=== PATIENT | female | born 1960 | race African-American/Black ===

== ENCOUNTER 2020-02-06 08:14 | Outpatient (CLI) | payer OTHER, SELFPAY ==
--- NOTE | ~2020-02-06 | XR_ITS ---
EXAMINATION: XR barium swallow DATE: 02/06/2020 08:57 INDICATION: Dysphagia, unspecified. Hoarseness. TECHNIQUE: The patient drank thick barium, gas-producing crystals, and thin barium. Fluoroscopy of th e hypopharynx and esophagus was performed. Fluoroscopy exposure time was 1.0 minutes. The total numbe r of images was 743. The dose-area product was 1.62 Gy-cm^2. COMPARISON: None. FINDINGS: There is no mass or stricture of the esophagus. Esophageal motility is normal. There is no hiatal hernia. There was no gastroesophageal reflux with provocative maneuvers. IMPRESSION: 1. Normal esophagram. Reviewed, dictated and finalized at location A. IMPRESSION: 1. Normal esophagram.
== END 2020-02-06 08:15 | disposition home or self-care (01) ==
LOC: ANHIMG 08:19
PROVIDERS: PCP Family Medicine; Visit Provider Otolaryngology
DX: R13.10 Dysphagia, unspecified (principal)
CPT/HCPCS: 74220

== ENCOUNTER 2020-03-08 06:28 | Outpatient (CLI) | payer OTHER, SELFPAY ==
[2020-03-08 17:27] LABS: SARS-CoV-2 RNA PCR Negative
== END 2020-03-08 06:29 | disposition home or self-care (01) ==
LOC: ANHCOVIDDT 06:28
PROVIDERS: PCP Family Medicine; Visit Provider Otolaryngology
DX: Z01.812 Encounter for preprocedural laboratory examination (principal); Z11.59 Encounter for screening for other viral diseases
CPT/HCPCS: 87635; C9803; U0003

== ENCOUNTER 2020-03-11 02:41 | Day surgery (SDC) | payer OTHER, SELFPAY ==
[2020-02-28 10:04] VITALS: BMI 30.8
[2020-03-11] VITALS (7 sets, daily range): BP systolic 106–156; BP diastolic 59–99; PULSE 69–93; RESP 17–20; TEMP 36.2–36.6; O2SAT 100
--- NOTE | 2020-03-11 06:13 | P.HP_ITS ---
History of Present Illness History of Present Illness Consent: Risks, benefits, and alternatives have been discussed and questions answered. Patient agrees to proceed with procedure. Chief complaint: Chronic Hoarseness Narrative: Saray Whitten is a 59 year old female with chronic hoarseness she has had surgery before and she it may be a weakened vocal cord she is admitted for microlaryngoscopy possible biopsy and examination of the vocal cords Review of Systems Review of Systems: All systems reviewed & are unremarkable except as noted in HPI and below [facility] Social History Social History Years smoked: 3 Smoking status: Former smoker Tobacco type: cigarettes Second hand tobacco smoke exposure: No Smoking end date: 09/05/69 Alcohol intake: current Drinks per week: 0 Substance use: never Substance use type: does not use Additional occupation/education comments: Disability Gender identity (if verbalized by the patient): Female Meds Home Medications and Allergies Home Medications Medication Instructions Recorded Confirmed Type zolpidem 10 mg PO HS 02/28/20 02/28/20 History Allergies Allergy/AdvReac Type Severity Reaction Status Date / Time No Known Allergies Allergy Verified 02/28/20 10:04 Assessment and Plan Additional Plan Plan is to do a microlaryngoscopy examine the vocal cords possible biopsy possible distracting on whether the cords mobile or not
--- NOTE | 2020-03-11 06:14 | WPDHPUPDATE1 ---
History and Physical Update Update Date/Time: 03/11/20 06:14 History and Physical has been reviewed, including an updated exam of the patient. There are NO changes in the patient's condition. Risks, benefits, and alternatives have been discussed and questions answered. Patient agrees to proceed with procedure.
[2020-03-11] MEDS: LACTATED RINGERS 1,000 ML 30 ML IV CONT ×2 (06:45→08:37)
--- NOTE | 2020-03-11 07:04 | P.PNAN_ITS ---
Anes - Initial Pre Proc Eval Procedure: Operation Date: 03/11/20 08:15 Proposed Procedures p Microlaryngoscopy With Biopsy - Titus Wetzel MD Date/Time: 03/11/20 07:04 Surgeon: Titus Wetzel MD Pre Op Diagnosis: Chronic Hoarseness Patient Data Age: 59 Gender: F Height: 5 ft 6 in Weight: 84 kg Last Vital Signs Temp 97.2 F L 03/11/20 06:31 Pulse 93 03/11/20 06:31 Resp 18 03/11/20 06:31 BP 149/59 H 03/11/20 06:31 Pulse Ox 100 03/11/20 06:31 Allergies Allergy/AdvReac Type Severity Reaction Status Date / Time No Known Allergies Allergy Verified 02/28/20 10:04 Home Medications Medication Instructions Recorded Confirmed Type zolpidem 10 mg PO HS 02/28/20 02/28/20 History Patient hx anesthesia problems: none Family hx anesthesia problems: none [facility] Social History Social History Years smoked: 3 Smoking status: Former smoker Tobacco type: cigarettes Second hand tobacco smoke exposure: No Smoking end date: 09/05/69 Alcohol intake: current Drinks per week: 0 Substance use: never Substance use type: does not use Additional occupation/education comments: Disability Gender identity (if verbalized by the patient): Female Anes - Eval Final PreProcedure Day of Procedure 03/11/20 07:04 Patient weight: normal Heart: regular rate and rhythm Lungs: clear to auscultation Airway: Mallampati scale class II Neurological: alert and oriented Last oral intake: >/= 8 hours ASA classification: II Emergent: no Anesthetic plan: proceed Anesthesia type and monitoring: general ETT and standard monitoring Informed Consent: The patient's anesthetic plan and its attendant risks and benefits were discussed with the patient/family/POA. Questions were solicited and answers provided to the satisfaction of the patient/family/POA.
--- NOTE | 2020-03-11 08:29 | PM.PROC ---
Procedure Note - Detailed Date of procedure: 03/11/20 Pre-op diagnosis: Chronic Hoarseness Patient was prepped and draped usual fashion general anesthesia initially the glide scope was introduced cords were mobile though was a large posterior based vocal polyp the patient was then intubated with micro technique a large polyp was removed off of interarytenoid area and sent for pathologic examination procedure was terminated patient awakened returned to recovery in good condition Post-op diagnosis: same Surgeon: Titus Wetzel MD
--- NOTE | 2020-03-11 08:30 | P.OP_ITS ---
Procedure Note - Detailed Date of procedure: 03/11/20 Pre-op diagnosis: Chronic Hoarseness Post-op diagnosis: same Procedure performed: Microlaryngoscopy and biopsy Description of procedure: Patient was prepped and draped for vaginal general a nesthesia the lip glide scope was in his initially a large posterior based vocal polyp was identified as the patient was then intubated and with a large micro up biter the polyp was removed sent for pathologic examination patient awakened returned to recovery in good condition Anesthesia: GLMA Surgeon: Titus Wetzel MD Estimated blood loss (mL): 0 Drains: No Packing: No Pathology: yes Complications: No immediate complications Condition: stable Disposition: PACU
== END 2020-03-11 10:25 | disposition home or self-care (01) ==
PROVIDERS: PCP Family Medicine; Visit Provider Otolaryngology
PROC: 0CJS8ZZ Inspection of Larynx, Via Natural or Artificial Opening Endoscopic (ICD-10-PCS; CPT 31575; principal; 2020-03-11 08:15)
DX: J38.1 Polyp of vocal cord and larynx (principal); Z87.891 Personal history of nicotine dependence
CPT/HCPCS: 31536; 87635; 88305; A9270; C9803; J2250; J2704; J3010; J7120; U0003

== ENCOUNTER 2021-08-10 17:34 | Outpatient (CLI) | payer OTHER, SELFPAY ==
--- NOTE | ~2021-08-10 | XR_ITS ---
EXAMINATION: XR lumbar spine 2-3V EXAM DATE: 08/10/2021 17:54 INDICATION: M48.061 - Spinal stenosis, lumbar region without neurogen... TECHNIQUE: Lumber spine frontal, lateral, lateral L5-S1 projections for interpretation. There is no prior study for comparison. FINDINGS: Posterior and interbody fusion L4-S1. The hardware is intact. Mild disc disease at the oth er lumbar levels. Overall mild to moderate lumbar facet arthropathy. The vertebral bodies are aligned in the AP dimension. Paraspinal soft tissue is unremarkable. IMPRESSION: 1. Intact L4-S1 fusion. 2. Mild to moderate facet arthropathy, mild disc disease. Reviewed, dictated and finalized at location A. 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
== END 2021-08-10 17:35 | disposition home or self-care (01) ==
LOC: ANHIMG 17:39
PROVIDERS: PCP Family Medicine; Visit Provider Family Medicine
DX: M48.061 Spinal stenosis, lumbar region without neurogenic claudication (principal); Z98.1 Arthrodesis status; M51.36 Other intervertebral disc degeneration, lumbar region
CPT/HCPCS: 72100

== ENCOUNTER → 2021-09-07 01:23 | Outpatient (CLI) | payer OTHER, SELFPAY ==
[2021-09-07 21:22] LABS: SARS-CoV-2 RNA PCR Negative
== END ==
PROVIDERS: PCP Family Medicine; Visit Provider Nurse Practitioner Gerontology
DX: R68.89 Other general symptoms and signs (principal); Z20.822 Contact with and (suspected) exposure to COVID-19
CPT/HCPCS: C9803; U0003; U0005

== ENCOUNTER 2022-04-29 11:00 | Outpatient (CLI) | payer OTHER, SELFPAY ==
[2022-04-29 12:15] LABS: Cholesterol 230 mg/dL (0-200); HDL Direct 69 mg/dL; Triglycerides 79 mg/dL (<150)
[2022-04-29 12:26] LABS: LDL Cholesterol Direct 109 mg/dL
== END 2022-04-29 11:01 | disposition home or self-care (01) ==
PROVIDERS: PCP Family Medicine; Visit Provider Physician Assistant
DX: E78.00 Pure hypercholesterolemia, unspecified (principal)
CPT/HCPCS: 36415; 80061

== ENCOUNTER 2022-07-26 23:32 | Emergency (ER) | payer OTHER, SELFPAY ==
--- NOTE | ~2022-07-26 | XR_ITS ---
EXAMINATION: XR shoulder LT min 2V DATE: 07/27/2022 00:47 INDICATION: Left shoulder pain. TECHNIQUE: 4 views of left shoulder were obtained. COMPARISON: None. FINDINGS: Bone alignment is normal. No fracture. There is mild osteoarthritis of glenohumeral joint a nd moderate osteoarthritis of acromioclavicular joint. There is mild calcific tendinitis of the rotat or cuff. IMPRESSION: 1. Polyarticular osteoarthritis. 2. Mild calcific tendinitis of the rotator cuff. Reviewed, dictated and finalized at location A. T BLANKER
[2022-07-26 23:36] VITALS: BP 175/95; PULSE 113; RESP 18; TEMP 36.9; O2SAT 100
--- NOTE | 2022-07-26 23:49 | ED.EXTPRO ---
HPI - Extremity Problem General Chief complaint: Extremity Problem,Nontraumatic Stated complaint: Left shoulder pain, denies injury Time Seen by Provider: 07/26/22 23:48 History of Present Illness HPI Narrative: 32-year-old female presents to the emergency room for evaluation of left shoulder pain. States pain has been present for a week and has progressively gotten worse. 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 Patient has taken Tylenol and ibuprofen with limited relief of pain. Denies any known injury or trauma. Related Data Home Medications Medication Instructions Recorded Confirmed celecoxib 200 mg capsule 200 mg PO DAILY 04/29/22 04/29/22 Allergies Allergy/AdvReac Type Severity Reaction Status Date / Time No Known Allergies Allergy Verified 04/29/22 10:01 Review of Systems Review of Systems: CONSTITUTIONAL: Denies fever, chills, or sweats. EYES: Denies visual changes, redness, or discharge. ENT: Denies rhinorrhea, congestion, sore throat, or otalgia. CARDIOVASCULAR: Denies chest pain, palpitations, or edema. RESPIRATORY: Denies cough or dyspnea. GASTROINTESTINAL: Denies abdominal pain, nausea, vomiting, or diarrhea. GENITOURINARY: Denies dysuria or hematuria. SKIN: Denies rash or itching. MUSCULOSKELETAL: Reports left shoulder pain NEUROLOGIC: Denies headache, numbness, dizziness, or weakness. PSYCHIATRIC: Denies anxiety or depression. PMFSH Past Medical History Medical History (Updated 07/27/22 @ 00:00 by [facility]) Chronic pain syndrome Primary fibromyalgia Spinal stenosis at L4-L5 level Surgical History Surgical History S/P lumbar fusion Social History Social History Social History: Years smoked: 3 Smoking status: Former smoker Tobacco type: cigarettes Second hand tobacco smoke exposure: No Smoking end date: 09/05/69 Alcohol intake: never Drinks per week: 0 Substance use: never Substance use type: does not use Gender identity (if verbalized by the patient): Female Sexual Orientation (if Verbalized by the Patient): Straight or Heterosexual Exam Narrative: GENERAL: Well-appearing, well-nourished, no physical limitations, and in no acute distress. HEAD: Normocephalic, atraumatic. EYES: Conjunctivae normal, PERRLA and EOMI. CHEST: Clear to auscultation. No respiratory distress. No wheezes rales or rhonchi. HEART: Regular rate and rhythm. No murmur heard. Normal peripheral pulses. EXTREMITIES: Left Shoulder: Tenderness in the AC joint, positive Fish Rip test limited range of motion, neurovascular is intact, no bony abnormality, no soft tissue swelling or ecchymosis noted SKIN: Warm, dry, no rash. No noted wounds NEURO: No focal deficits. Alert and oriented x3. MAEW. CN's II-XI intact bilaterally, normal gait PSYCH: Cooperative. Normal mood and affect. Course Vital Signs Vital signs: Vital Signs Temperature 36.9 C 07/26/22 23:36 Pulse Rate 113 H 07/26/22 23:36 Respiratory Rate 18 07/26/22 23:36 Blood Pressure 175/95 H 07/26/22 23:36 Pulse Oximetry 100 07/26/22 23:36 Oxygen Delivery Room Air 07/26/22 23:36 Temperature 36.9 C 07/26/22 23:36 Pulse Rate 113 H 07/26/22 23:36 Respiratory Rate 18 07/26/22 23:36 Blood Pressure 175/95 H 07/26/22 23:36 Pulse Oximetry 100 07/26/22 23:36 Oxygen Delivery Room Air 07/26/22 23:36 MDM - Extremity (Nontraumatic) Imaging Data Radiologist's impression: left shoulder: NAF Discharge Plan Discharge Clinical Impression: Impingement syndrome of left shoulder region Patient Disposition: Home, Self-Care Condition: Stable Instructions: Antibiotic Form, Shoulder Impingement Syndrome (ED) Prescriptions: New methocarbamol 500 mg tablet 500 mg PO TID Qt
[2022-07-27] MEDS: methocarbamoL 750 MG TABLET PO (00:57)
[2022-07-27 01:00] VITALS: BP 162/96; PULSE 80; RESP 16; TEMP 37; O2SAT 100
== END 2022-07-27 01:01 | disposition home or self-care (01) ==
LOC: ANHED 07-27 00:07
PROVIDERS: Emergency Provider Nurse Practitioner Family; PCP Family Medicine
DX: M75.42 Impingement syndrome of left shoulder (principal); M79.7 Fibromyalgia; G89.4 Chronic pain syndrome; Z98.1 Arthrodesis status; Z87.891 Personal history of nicotine dependence
CPT/HCPCS: 73030; 99283; A9270

== ENCOUNTER 2022-08-03 13:31 | Outpatient (CLI) | payer OTHER, SELFPAY ==
[2022-08-03 14:15] LABS: Cholesterol 230 mg/dL (0-200); HDL Direct 56 mg/dL; Triglycerides 122 mg/dL (<150)
[2022-08-03 14:25] LABS: LDL Cholesterol Direct 105 mg/dL
== END 2022-08-03 13:32 | disposition home or self-care (01) ==
LOC: ANHLAB 13:32
PROVIDERS: PCP Family Medicine; Visit Provider Physician Assistant
DX: E78.00 Pure hypercholesterolemia, unspecified (principal)
CPT/HCPCS: 36415; 80061

== ENCOUNTER 2022-11-11 14:36 | Outpatient (CLI) | payer OTHER, SELFPAY ==
[2022-11-11 15:06] LABS: Basophils Percent Auto 0.5 % (0.2-1.2); Eosinophils Absolute Auto 0.2 K/mm3 (0-0.3); Eosinophils Percent Auto 3.8 % (0-4.4); Hematocrit 40.4 % (37.0-47.0); Hemoglobin 12.8 g/dL (12.0-15.0); Immature Granulocyte Absolute 0.01 K/mm3 (0.00-0.031); Immature Granulocyte Percent A 0.2 % (0-0.5); Lymphocytes Absolute Auto 2.25 K/mm3 (0.9-3.2); Lymphocytes Percent Auto 41.1 % (18.3-44.2); Mean Corpuscular HGB Conc 31.7 g/dl (32-36); Mean Corpuscular Hemoglobin 27.6 pg (26-34); Mean Corpuscular Volume 87.1 fl (80-100); Monocytes Absolute Auto 0.4 K/mm3 (0.1-0.6); Neutrophils Absolute Auto 2.5 K/mm3 (1.3-6.7); Neutrophils Percent Auto 46.4 % (45.5-73.1); Platelet Count Result 178 k/mm3 (150-375); Red Blood Count 4.64 M/mm3 (4.2-5.4); Red Cell Distribution Width 14.1 % (11.5-14.5); White Blood Count 5.5 K/mm3 (4.5-10.0)
[2022-11-11 15:16] LABS: Alanine Aminotransferase 25 U/L (6-35); Albumin Level 4.4 g/dL (3.5-5.1); Alkaline Phosphatase 90 U/L (38-126); Anion Gap 6 mmol/L (8-16); Aspartate Amino Transferase 24 U/L (14-36); Bilirubin,Total 0.7 mg/dL (0.2-1.3); Blood Urea Nitrogen 12 mg/dL (7-17); Carbon Dioxide 27 mmol/L (22-30); Chloride 108 mmol/L (98-107); Cholesterol 234 mg/dL (0-200); Estimated Glomerular Filt Rate > 60; Glucose 88 mg/dL (65-110); HDL Direct 60 mg/dL; Potassium 3.9 mmol/L (3.4-5.0); Sodium 141 mmol/L (137-145); Triglycerides 90 mg/dL (<150)
[2022-11-11 15:27] LABS: LDL Cholesterol Direct 113 mg/dL
[2022-11-11 15:44] LABS: Thyroid Stimulating Hormone 0.423 uIU/mL (0.465-4.680)
[2022-11-16 08:25] LABS: Vitamin D 1,25 (OH)2 Total 55 pg/mL (18-72); Vitamin D2 1,25 (OH)2 <8 pg/mL; Vitamin D3 1,25 (OH)2 55 pg/mL
== END 2022-11-11 14:37 | disposition home or self-care (01) ==
LOC: ANHLAB 14:37
PROVIDERS: PCP Family Medicine; Visit Provider Family Medicine
DX: E03.9 Hypothyroidism, unspecified (principal); I10 Essential (primary) hypertension; E78.2 Mixed hyperlipidemia; E55.9 Vitamin D deficiency, unspecified
CPT/HCPCS: 36415; 80053; 80061; 82652; 84443; 85025

== ENCOUNTER 2022-12-02 16:33 | Outpatient (CLI) | payer OTHER, SELFPAY ==
--- NOTE | ~2022-12-02 | XR_ITS ---
XR chest 2V DATE: 12/02/2022 16:49 INDICATION: Cough. Recent bronchitis. TECHNIQUE: PA and lateral views COMPARISON: None FINDINGS: Normal heart size. No hilar or mediastinal enlargement. No pulmonary infiltrate or consolid ation, pleural effusion or pulmonary vascular congestion or pneumothorax. Mild thoracolumbar dextroscoliosis. IMPRESSION: No active cardiopulmonary disease Reviewed, dictated and finalized at location L.
== END 2022-12-02 16:34 | disposition home or self-care (01) ==
LOC: ANHIMG 16:36
PROVIDERS: PCP Family Medicine; Visit Provider Nurse Practitioner Gerontology
DX: R05.9 Cough, unspecified (principal)
CPT/HCPCS: 71046

== ENCOUNTER 2023-02-23 10:09 | Outpatient (CLI) | payer OTHER, SELFPAY ==
[2023-02-23 11:01] LABS: Alanine Aminotransferase 27 U/L (6-35); Albumin Level 4.3 g/dL (3.5-5.1); Alkaline Phosphatase 90 U/L (38-126); Anion Gap 6 mmol/L (8-16); Aspartate Amino Transferase 26 U/L (14-36); Bilirubin,Total 0.4 mg/dL (0.2-1.3); Blood Urea Nitrogen 12 mg/dL (7-17); Calcium 9.5 mg/dL (8.4-10.2); Carbon Dioxide 30 mmol/L (22-30); Chloride 108 mmol/L (98-107); Cholesterol 203 mg/dL (0-200); Estimated Glomerular Filt Rate > 60; Glucose 102 mg/dL (65-110); HDL Direct 53 mg/dL; Potassium 4.8 mmol/L (3.4-5.0); Sodium 144 mmol/L (137-145); Triglycerides 66 mg/dL (<150)
[2023-02-23 11:11] LABS: LDL Cholesterol Direct 108 mg/dL
[2023-02-23 11:26] LABS: Free T4 Free Thyroxine 1.15 ng/mL (0.78-2.19)
[2023-02-23 11:32] LABS: Thyroid Stimulating Hormone 0.601 uIU/mL (0.465-4.680)
[2023-02-26 05:25] LABS: Thyroid Peroxidase Antibodies 2 IU/mL (<9)
[2023-02-27 05:21] LABS: Triiodothyronine T3 Free 2.9 pg/mL (2.3-4.2)
== END 2023-02-23 10:10 | disposition home or self-care (01) ==
LOC: ANHLAB 10:10
PROVIDERS: PCP Family Medicine; Visit Provider Physician Assistant
DX: E78.00 Pure hypercholesterolemia, unspecified (principal); E07.9 Disorder of thyroid, unspecified
CPT/HCPCS: 36415; 80053; 80061; 84439; 84443; 84481; 86376

== ENCOUNTER 2023-12-06 10:14 | Outpatient (CLI) | payer BC, SELFPAY ==
[2023-12-06 11:22] LABS: Basophils Percent Auto 0.7 % (0.2-1.2); Eosinophils Absolute Auto 0.2 K/mm3 (0-0.3); Eosinophils Percent Auto 4.1 % (0-4.4); Hematocrit 42.2 % (37.0-47.0); Hemoglobin 12.9 g/dL (12.0-15.0); Immature Granulocyte Absolute 0.01 K/mm3 (0.00-0.031); Immature Granulocyte Percent A 0.2 % (0-0.5); Lymphocytes Percent Auto 40.9 % (18.3-44.2); Mean Corpuscular HGB Conc 30.6 g/dl (32-36); Mean Corpuscular Volume 88.5 fl (80-100); Mean Platelet Volume 10.2 fl (7.4-10.4); Monocytes Absolute Auto 0.4 K/mm3 (0.1-0.6); Monocytes Percent Auto 9.1 % (2.6-8.5); Neutrophils Absolute Auto 1.9 K/mm3 (1.3-6.7); Platelet Count Result 189 k/mm3 (150-375); Red Blood Count 4.77 M/mm3 (4.2-5.4); Red Cell Distribution Width 14.2 % (11.5-14.5); White Blood Count 4.2 K/mm3 (4.5-10.0)
[2023-12-06 11:33] LABS: Anion Gap 5 mmol/L (4-12); Blood Urea Nitrogen 16 mg/dL (7-17); Carbon Dioxide 28 mmol/L (22-30); Chloride 107 mmol/L (98-107); Potassium 3.9 mmol/L (3.4-5.0); Sodium 140 mmol/L (137-145)
[2023-12-06 11:34] LABS: Alanine Aminotransferase 21 U/L (6-35); Albumin Level 4.3 g/dL (3.5-5.1); Alkaline Phosphatase 78 U/L (38-126); Aspartate Amino Transferase 22 U/L (14-36); Bilirubin,Total 0.6 mg/dL (0.2-1.3); Calcium 9.5 mg/dL (8.4-10.2); Cholesterol 221 mg/dL (0-200); Estimated Glomerular Filt Rate > 60; Glucose 90 mg/dL (65-110); HDL Direct 56 mg/dL; Triglycerides 67 mg/dL (<150)
[2023-12-06 11:44] LABS: LDL Cholesterol Direct 118 mg/dL
[2023-12-06 12:03] LABS: Thyroid Stimulating Hormone 0.853 uIU/mL (0.465-4.680)
[2023-12-06 12:17] LABS: Free T4 Free Thyroxine 1.05 ng/mL (0.78-2.19)
== END 2023-12-06 10:15 | disposition home or self-care (01) ==
PROVIDERS: PCP Family Medicine; Visit Provider Physician Assistant
DX: E78.00 Pure hypercholesterolemia, unspecified (principal); R94.6 Abnormal results of thyroid function studies; M45.9 Ankylosing spondylitis of unspecified sites in spine; E07.9 Disorder of thyroid, unspecified
CPT/HCPCS: 36415; 80053; 80061; 84439; 84443; 85025

== ENCOUNTER 2024-01-17 02:45 | Day surgery (SDC) | payer BC, SELFPAY ==
[2024-01-09 13:22] VITALS: BMI 27.2
[2024-01-17 12:13] VITALS: BP 155/91; PULSE 83; RESP 18; TEMP 36.2; O2SAT 100; BMI 32.9
[2024-01-17] MEDS: LACTATED RINGERS 1,000 ML 150 ML IV CONT ×2 (12:16→14:11)
--- NOTE | 2024-01-17 12:54 | WPDANESEPPF ---
Anes - Initial Pre Proc Eval Procedure: Operation Date: 01/17/24 13:00 Proposed Procedures p Screening Colonoscopy - Stephan Almaguer DO Date/Time: 01/17/24 12:54 Surgeon: Stephan Almaguer DO Pre Op Diagnosis: Neoplasm screening Patient Data Age: 63 Gender: F Height: 1.7 m Weight: 95.4 kg Last Vital Signs Temp 97.1 F L 01/17/24 12:13 Pulse 83 01/17/24 12:13 Resp 18 01/17/24 12:13 BP 155/91 H 01/17/24 12:13 Pulse Ox 100 01/17/24 12:13 O2 Del Method Room Air 01/17/24 12:13 Allergies Allergy/AdvReac Type Severity Reaction Status Date / Time No Known Allergies Allergy Verified 01/17/24 12:11 Home Medications Medication Instructions Recorded Confirmed Type amlodipine 5 mg tablet 5 mg PO DAILY #90 tabs 12/06/23 01/17/24 Rx cyclobenzaprine 10 mg tablet 10 mg PO HS 01/09/24 01/17/24 History diclofenac sodium 75 mg 75 mg PO BID 01/09/24 01/17/24 History tablet,delayed release folic acid 1 mg tablet 1 mg PO DAILY 01/09/24 01/17/24 History methotrexate sodium 2.5 mg tablet 12.5 mg PO WEEKLY 01/09/24 01/17/24 History pantoprazole 40 mg tablet,delayed 40 mg PO DAILY 01/09/24 01/17/24 History release Patient hx anesthesia problems: none Family hx anesthesia problems: none Results Review: All pre-operative results and documents have been reviewed as part of the pre-operative evaluation. [facility] Past Medical History Medical History Ankylosing spondylitis Chronic pain syndrome Polyp of vocal cord or larynx Positive OLEG (antinuclear antibody) Primary fibromyalgia Spinal stenosis at L4-L5 level Vocal cord dysfunction Surgical History Surgical History History of vocal cord polypectomy S/P lumbar fusion Social History Social History Social History: Years smoked: 3 Smoking status: Never smoker Tobacco type: cigarettes Second hand tobacco smoke exposure: No Smoking end date: 09/05/69 Alcohol intake: current Substance use: never Substance use type: does not use Lack of Transportation: No Lack of Food: Never True Current Housing: I Have Housing Concerned About Future Housing: No Difficulty Paying Gas/Electric Bills: No Difficulty Paying for Meds: No Currently Unemployed: No Education: Decline to Answer Difficulty w/ Childcare or Family Care: No Living arrangements: with family Occupation/Education: occupation Gender identity (if verbalized by the patient): Female Sexual Orientation (if Verbalized by the Patient): Straight or Heterosexual Spiritual care concerns: No Anes - Eval Final PreProcedure Day of Procedure 01/17/24 12:54 Patient weight: obese Heart: regular rate and rhythm Lungs: clear to auscultation Airway: Mallampati scale class II Neurological: alert and oriented Last oral intake: >/= 8 hours ASA classification: III Emergent: no Anesthetic plan: proceed Anesthesia type and monitoring: general GIVS and standard monitoring Results Review: All pre-operative results and documents have been reviewed as part of the pre-operative evaluation. Informed Consent: The patient's anesthetic plan and its attendant risks and benefits were discussed with the patient/family/POA. Questions were solicited and answers provided to the satisfaction of the patient/family/POA.
--- NOTE | 2024-01-17 13:49 | PM.IMHP ---
H&P: HPI History of Present Illness Date/Time: 01/17/24 13:49 Chief Complaint: screening for colorectal cancer Narrative: this is a 63-year-old woman who presents for colonoscopy. Her last colonoscopy was of about 6 or so years ago. She denies any hematochezia or melena. She denies family history colon cancer Review of Systems Review of Systems: All systems reviewed & are unremarkable except as noted in HPI and below Constitutional: Constitutional: Denies chills, Denies fever(s), Denies headache(s) and Denies weight loss Eyes: Eyes: Denies change in vision ENT: Denies dizziness, Denies headache(s), Denies neck mass and Denies throat swelling Cardiovascular: Cardiovascular: Denies chest pain, Denies lightheadedness and Denies dyspnea Respiratory: Respiratory: Denies cough, Denies dyspnea and Denies wheezing Gastrointestinal: Gastrointestinal: Denies abdominal pain, Denies change in bowel habits, Denies nausea and Denies vomiting Genitourinary: Genitourinary: Denies hematuria and Denies dysuria Musculoskeletal: Musculoskeletal: Reports as per HPI Integumentary/Breasts: Skin/Breast: Reports as per HPI Neurologic: Denies dizziness and Denies headache(s) Allergic/Immunologic: Allergic/Immunologic: Denies throat swelling and Denies wheezing PMF Past Medical History Medical History Ankylosing spondylitis Chronic pain syndrome Polyp of vocal cord or larynx Positive OLEG (antinuclear antibody) Primary fibromyalgia Spinal stenosis at L4-L5 level Vocal cord dysfunction Surgical History Surgical History History of vocal cord polypectomy S/P lumbar fusion Social History Social History Social History: Years smoked: 3 Smoking status: Never smoker Tobacco type: cigarettes Second hand tobacco smoke exposure: No Smoking end date: 09/05/69 Alcohol intake: current Substance use: never Substance use type: does not use Lack of Transportation: No Lack of Food: Never True Current Housing: I Have Housing Concerned About Future Housing: No Difficulty Paying Gas/Electric Bills: No Difficulty Paying for Meds: No Currently Unemployed: No Education: Decline to Answer Difficulty w/ Childcare or Family Care: No Living arrangements: with family Occupation/Education: occupation Gender identity (if verbalized by the patient): Female Sexual Orientation (if Verbalized by the Patient): Straight or Heterosexual Spiritual care concerns: No Meds Home Medications and Allergies Home Medications Medication Instructions Recorded Confirmed Type amlodipine 5 mg tablet 5 mg PO DAILY #90 tabs 12/06/23 01/17/24 Rx cyclobenzaprine 10 mg tablet 10 mg PO HS 01/09/24 01/17/24 History diclofenac sodium 75 mg 75 mg PO BID 01/09/24 01/17/24 History tablet,delayed release folic acid 1 mg tablet 1 mg PO DAILY 01/09/24 01/17/24 History methotrexate sodium 2.5 mg tablet 12.5 mg PO WEEKLY 01/09/24 01/17/24 History pantoprazole 40 mg tablet,delayed 40 mg PO DAILY 01/09/24 01/17/24 History release Allergies Allergy/AdvReac Type Severity Reaction Status Date / Time No Known Allergies Allergy Verified 01/17/24 12:11 Vital Signs Vital Signs - 24 hr 01/17/24 12:13 Temperature 36.2 C L Pulse Rate 83 Respiratory Rate 18 Blood Pressure 155/91 H Pulse Oximetry 100 Oxygen Delivery Room Air Exam Const: General: no acute distress and alert Orientation/consciousness: patient oriented x3 HENMT: Head: normocephalic and atraumatic Ears: hearing grossly normal bilaterally Face/Nose/Sinus: Normal nares present Mouth: Yes Normal oral and palatal mucosa present Eyes: Periorbital: periorbital findings normal Sclera: sclerae normal EOM: EOMs intact bilaterally Neck: Neck: normal visual inspection, no lymphadenopathy a
[2024-01-17 14:17] VITALS: BP 115/73; PULSE 69; RESP 23; O2SAT 100
[2024-01-17 14:27] VITALS: BP 141/77; PULSE 72; RESP 23; O2SAT 100
== END 2024-01-17 14:51 | disposition home or self-care (01) ==
PROVIDERS: PCP Family Medicine; Visit Provider Surgery
PROC: 0DJD8ZZ Inspection of Lower Intestinal Tract, Via Natural or Artificial Opening Endoscopic (ICD-10-PCS; CPT 45378; principal; 2024-01-17 13:00)
DX: Z12.11 Encounter for screening for malignant neoplasm of colon (principal); Z86.010 Personal history of colon polyps; Z79.631 Long term (current) use of antimetabolite agent; M79.7 Fibromyalgia; Z98.1 Arthrodesis status; R76.0 Raised antibody titer; Z87.891 Personal history of nicotine dependence; E66.9 Obesity, unspecified; Z68.32 Body mass index [BMI] 32.0-32.9, adult
CPT/HCPCS: 45378; J2704; J7120

== ENCOUNTER 2024-02-21 17:15 | Outpatient (CLI) | payer BC, SELFPAY ==
[2024-02-21 17:51] LABS: Basophils Percent Auto 0.4 % (0.2-1.2); Eosinophils Absolute Auto 0.2 K/mm3 (0-0.3); Eosinophils Percent Auto 3.3 % (0-4.4); Hematocrit 39.4 % (37.0-47.0); Hemoglobin 12.6 g/dL (12.0-15.0); Immature Granulocyte Absolute 0.02 K/mm3 (0.00-0.031); Immature Granulocyte Percent A 0.4 % (0-0.5); Lymphocytes Absolute Auto 1.98 K/mm3 (0.9-3.2); Mean Corpuscular Hemoglobin 27.6 pg (26-34); Mean Corpuscular Volume 86.4 fl (80-100); Mean Platelet Volume 10.2 fl (7.4-10.4); Monocytes Absolute Auto 0.4 K/mm3 (0.1-0.6); Monocytes Percent Auto 7.3 % (2.6-8.5); Neutrophils Absolute Auto 2.5 K/mm3 (1.3-6.7); Neutrophils Percent Auto 49.6 % (45.5-73.1); Platelet Count Result 199 k/mm3 (150-375); Red Blood Count 4.56 M/mm3 (4.2-5.4); Red Cell Distribution Width 14.4 % (11.5-14.5); White Blood Count 5.1 K/mm3 (4.5-10.0)
== END 2024-02-21 17:16 | disposition home or self-care (01) ==
LOC: ANHLAB 17:16
PROVIDERS: PCP Family Medicine; Visit Provider Physician Assistant
DX: D72.819 Decreased white blood cell count, unspecified (principal)
CPT/HCPCS: 36415; 85025

== ENCOUNTER 2024-07-19 11:43 | Outpatient (CLI) | payer BC, SELFPAY ==
[2024-07-19 12:51] LABS: Alanine Aminotransferase 25 U/L (6-35); Albumin Level 4.5 g/dL (3.5-5.1); Alkaline Phosphatase 93 U/L (38-126); Anion Gap 6 mmol/L (4-12); Aspartate Amino Transferase 29 U/L (14-36); Bilirubin,Total 0.6 mg/dL (0.2-1.3); Blood Urea Nitrogen 14 mg/dL (7-17); Calcium 9.4 mg/dL (8.4-10.2); Carbon Dioxide 28 mmol/L (22-30); Chloride 106 mmol/L (98-107); Cholesterol 215 mg/dL (0-200); Estimated Glomerular Filt Rate > 60; Glucose 98 mg/dL (65-110); HDL Direct 68 mg/dL; Potassium 3.9 mmol/L (3.4-5.0); Sodium 140 mmol/L (137-145); Triglycerides 69 mg/dL (<150)
[2024-07-19 13:02] LABS: LDL Cholesterol Direct 94 mg/dL
[2024-07-19 13:19] LABS: Thyroid Stimulating Hormone 0.649 uIU/mL (0.465-4.680)
== END 2024-07-19 11:44 | disposition home or self-care (01) ==
LOC: ANHLAB 11:47
PROVIDERS: PCP Family Medicine; Visit Provider Physician Assistant
DX: E07.9 Disorder of thyroid, unspecified (principal); I10 Essential (primary) hypertension; R94.6 Abnormal results of thyroid function studies; E78.00 Pure hypercholesterolemia, unspecified
CPT/HCPCS: 36415; 80053; 80061; 84439; 84443

== ENCOUNTER 2024-08-20 08:22 | Outpatient (CLI) | payer BC, SELFPAY ==
--- NOTE | 2024-08-20 08:28 | EST_ITS ---
Patient Info Name: Saray Whitten Age: 64 years : 1960 Gender: Female Ht: 65 in Wt: 198 lbs BSA: 2.06 m2 HR: 92 bpm BP: 143 / 81 mmHg Exam Date: 08/20/2024 8:40 AM Exam Location: Echo Lab Patient Status: Outpatient Admit Date: 08/20/2024 Staff Ordering Physician: Luly Walsh PA-C Attending Provider: Luly Walsh PA-C Exercise Technologist: Yanna Hastings [facility] Exercise Physician: Emre Gay DO Exam Type: CA stress test treadmill Study Info A treadmill exercise stress test was performed. Summary 1. 1. Negative Jony exercise stress test for ischemic ST changes by ECG criteria. 2. 2. Reduced functional capacity, achieving 7 METs of workload. 3. 3. Appropriate HR response to exercise. 4. 4. Appropriate HR recovery at 1 minute post exercise. 5. 5. No imaging with stress testing. 6. 6. Patient informed of the above results. Protocol: Jony Stress ECG Details Stage: REST Duration (min): 1 min : 15 sec Speed (mph): 0.0 Grade (%): 0 HR (bpm): 92 SBP (mmHg): 143 DBP (mmHg): 81 METS: --- Stage: REST Duration (min): 5 min : 2 sec Speed (mph): 0.0 Grade (%): 0 HR (bpm): 93 SBP (mmHg): 143 DBP (mmHg): 81 METS: --- Stage: STAGE 1 Duration (min): 1 min : 0 sec Speed (mph): 1.7 Grade (%): 10 HR (bpm): 119 SBP (mmHg): 143 DBP (mmHg): 81 METS: --- Stage: STAGE 1 Duration (min): 2 min : 0 sec Speed (mph): 1.7 Grade (%): 10 HR (bpm): 124 SBP (mmHg): 143 DBP (mmHg): 81 METS: --- Stage: STAGE 1 Duration (min): 3 min : 0 sec Speed (mph): 1.7 Grade (%): 10 HR (bpm): 130 SBP (mmHg): 189 DBP (mmHg): 68 METS: --- Stage: STAGE 2 Duration (min): 1 min : 0 sec Speed (mph): 2.5 Grade (%): 12 HR (bpm): 139 SBP (mmHg): 189 DBP (mmHg): 68 METS: --- Stage: STAGE 2 Duration (min): 2 min : 0 sec Speed (mph): 2.5 Grade (%): 12 HR (bpm): 146 SBP (mmHg): 189 DBP (mmHg): 99 METS: --- Stage: STAGE 2 Duration (min): 2 min : 3 sec Speed (mph): 2.5 Grade (%): 12 HR (bpm): 146 SBP (mmHg): 189 DBP (mmHg): 99 METS: --- Stage: RECOVERY Duration (min): 0 min : 57 sec Speed (mph): 0.0 Grade (%): 0 HR (bpm): 125 SBP (mmHg): 189 DBP (mmHg): 99 METS: --- Stage: RECOVERY Duration (min): 1 min : 56 sec Speed (mph): 0.0 Grade (%): 0 HR (bpm): 101 SBP (mmHg): 189 DBP (mmHg): 99 METS: --- Stage: RECOVERY Duration (min): 2 min : 57 sec Speed (mph): 0.0 Grade (%): 0 HR (bpm): 101 SBP (mmHg): 142 DBP (mmHg): 69 METS: --- Stage: RECOVERY Duration (min): 3 min : 34 sec Speed (mph): 0.0 Grade (%): 0 HR (bpm): 98 SBP (mmHg): 142 DBP (mmHg): 69 METS: --- Rest HR: 93 bpm Peak HR: 147 bpm Rest Sys BP: 143 mmHg Peak Sys BP: 189 mmHg Max Pred HR: 155 bpm % Max Pred HR: 95 % Target HR: 132 bpm Max RPP: 27,783 bpm*mmHg Arechiga Score: 0 Termination Reason: Reached target heart rate or workload Cardiac Symptoms: Shortness of breath Max ST Seg Deviation: -1.10 mm Total Time: 5 min : 3 sec Rest Garcia BP: 81 mmHg Peak Garcia BP: 99 mmHg Angina Score: None Total METS: 7.1 Resting ECG Sinus rhythm. Stress ECG Borderline ST-T wave in inferior leads. Arrhythmias None. Report Signatures
--- OUTSIDE RECORDS SUMMARY | 2024-08-26 07:03 | XMS_ITS | Patient Health Summary ---
Author Organization [facility] Address [address] [place] [address] Care Team Providers Care Inside Sales Associate Name Role Phone Esperanza Ho MD Primary Care Provider + Note from [facility],non-owned Affiliates and Associated Physician Practices is amultiple site organization consisting of ambulatory clinics and hospital sitesin [place], [place], [place] and [place]. This disclosure is being madepursuant to the Care Everywhere program and may not contain all information available regarding this patient. Last updated 18.[facility] Allergies No known active allergies Medications * Be aware that medications may not be up to date on this document. Alwaysverify current medications with the patient. * amitriptyline (ELAVIL) 25 MG tablet Take 25 mg by mouth at bedtime * DULoxetine (CYMBALTA) 30 MG capsule Take 30 mg by mouth once daily * senna-docusate (SENOKOT-S) 8.6-50 MG tablet(Started 11/23/2019) Take 1 tablet by mouth 2 times daily * polyethylene glycol 3350 (MIRALAX) powder(Started 12/17/2019) TAKE 17 GRAMS BY MOUTH ONCE DAILY * oxyCODONE-acetaminophen (PERCOCET) 10-325 MG tablet(Started 01/25/2020) Take 1 tablet by mouth every 4 hours as needed for Pain * zolpidem (AMBIEN) 10 MG tablet(Started 02/25/2020) Take 10 mg by mouth at bedtime * gabapentin (NEURONTIN) 300 MG capsule(Started 11/25/2020) Take 1 (one) capsule by mouth 3 times daily 2 refills by 11/25/2021 Active Problems Problem Noted Date Diagnosed Date S/P lumbar spinal fusion 11/16/2019 Red blood cell antibody positive Resolved Problems Problem Noted Date Diagnosed Date Resolved Date Lumbosacral radiculopathy at L5 05/19/2019 01/09/2020 Spondylolisthesis at L4-L5 level 04/13/2019 01/09/2020 Social History Tobacco Use Types Packs/Day Years Used Date Smoking Tobacco: Former Smokeless Tobacco: Never Comments:1/2 pack week Alcohol Use Standard Drinks/Week Comments Not Currently 0 (1 standard drink = 0.6 oz pur e alcohol) Sex and Gender Information Value Date Recorded Sex Assigned at Not on file Gender Identity Not on file Sexual Orientation Not on file Last Filed Vital Signs Vital Sign Reading Time Taken Comments Blood Pressure 144/76 06/03/2020 2:04 PM CDT Pulse 85 06/03/2020 2:04 PM CDT Temperature 36.4 ??C (97.6 ??F) 06/03/2020 2:04 PM CD T Respiratory Rate 18 06/03/2020 2:04 PM CDT Oxygen Saturation 100% 06/03/2020 2:04 PM CDT Inhaled Oxygen Concentration - - Weight 99.3 kg (219 lb) 01/21/2021 3:57 PM CDT Height 167.6 cm (5' 6 ) 01/21/2021 3:57 PM CDT Body Mass Index 35.35 01/21/2021 3:57 PM CDT Medical Devices Implanted Type Area Meter Tester Primary Device Identifier Shelf Expiration Date Model / Serial / Lot Spcr Spnl 12mm Primtr 12d Lrdtc Lg Vert Implanted:Qty: 1 on 11/02/2019 by Sammy Carrero MD at [facility] N/A: Spine Lumbar Medtronic [employer] 02/17/2024 [id number] / / Graft Bone Infs Bvn Clgn Rhbmp-2 Sm 2.8 Implanted:Qty: 1 on 11/02/2019 by Sammy Carrero MD at [facility] N/A: Spine Lumbar Medtronic [employer] [id number] / / Spcr Spnl 12mm Primtr 12d Lrdtc Lg Vert Implanted:Qty: 1 on 11/02/2019 by Sammy Carrero MD at [facility] N/A: Spine Lumbar Medtronic [employer] [id number] / / Graft Bone Canc 4-9.5mm 30cc Algrf Frzdr Implanted:Qty: 1 on 11/02/2019 by Sammy Carrero MD at [facility] N/A: Spine Lumbar [employer]ource [id number] / / Screw Set Ti Spnl Brk Off Cd Hzn Nonster Implanted:Qty: 6 on 11/02/2019 by Sammy Carrero MD at [facility] N/A: Spine Medtronic [employer] [id number] / / Screw 6.5mm 40mm Ma Spne Solera Cd Hzn Implanted:Qty: 4 on 11/02/2019 by Sammy Carrero MD at [facility] N/A: Spine Med[employer] [id number] / / Screw 7.5mm 40mm Ma Spne Solera Cd Hzn Implanted:Qty: 2 on 11/02/2019 by Sammy Carrero MD at [facility] N/A: Spine Medtronic [employer] [id number] / / Roger Spnl 70mm 5.5mm Cd Hzn Crv Cocrmo Implanted:Qty: 2 on 11/02/2019 by Sammy Carrero MD at [facility] N/A: Spine Med[employer] Inc [id number] / / Procedures * XR PELVIS W BILAT HIP 2VW(Performed 10/02/2021) Performed for Ankylosing spondylitis, unspecified site of spine (HCC), OLEG positive * XR LUMBAR SPINE 2 OR 3VW(Performed 11/25/2020) Performed for Low back pain, unspecified back pain laterality, unspecified chronicity, unspecified whether sciatica present * MRI LUMBAR SPINE WO CONTRAST(Performed 05/28/2020) Performed for S/P lumbar spinal fusion * XR LUMBAR SPINE 2 OR 3VW(Performed 04/15/2020) Performed for Back pain, unspecified back location, unspecified back pain laterality, unspecified chronicity * XR LUMBAR SPINE 2 OR 3VW(Performed 01/08/2020) Performed for Low back pain, unspecified back pain laterality, unspecified chronicity, unspecified whether sciatica present * CARDIAC EKG ORDER(Performed 12/22/2019) * BASIC METABOLIC PANEL (CALCIUM TOTAL)(Performed 11/12/2019) * CBC W/O DIFFERENTIAL(Performed 11/12/2019) * CBC W/O DIFFERENTIAL(Performed 11/11/2019) * BASIC METABOLIC PANEL (CALCIUM TOTAL)(Performed 11/11/2019) * BASIC METABOLIC PANEL (CALCIUM TOTAL)(Performed 11/10/2019) * CBC W/O DIFFERENTIAL(Performed 11/10/2019) * BASIC METABOLIC PANEL (CALCIUM TOTAL)(Performed 11/09/2019) * CBC W/O DIFFERENTIAL(Performed 11/09/2019) * BASIC METABOLIC PANEL (CALCIUM TOTAL)(Performed 11/08/2019) * CBC W/O DIFFERENTIAL(Performed 11/08/2019) * XR LUMBAR SPINE 2 OR 3VW(Performed 11/07/2019) Performed for Lumbosacral radiculopathy at L5 * BASIC METABOLIC PANEL (CALCIUM TOTAL)(Performed 11/07/2019) * CBC W/O DIFFERENTIAL(Performed 11/07/2019) * BASIC METABOLIC PANEL (CALCIUM TOTAL)(Performed 11/06/2019) * CBC W/O DIFFERENTIAL(Performed 11/06/2019) * BASIC METABOLIC PANEL (CALCIUM TOTAL)(Performed 11/05/2019) * CBC W/O DIFFERENTIAL(Performed 11/05/2019) * BASIC METABOLIC PANEL (CALCIUM TOTAL)(Performed 11/04/2019) * CBC W/O DIFFERENTIAL(Performed 11/04/2019) * BASIC METABOLIC PANEL (CALCIUM TOTAL)(Performed 11/03/2019) * CBC W/O DIFFERENTIAL(Performed 11/03/2019) * FL OARM SURGERY(Performed 11/02/2019) Performed for Lumbosacral radiculopathy at L5 * FL LEVI SURGERY(Performed 11/02/2019) Performed for Lumbosacral radiculopathy at L5 * BLOOD GASES ART COMPLETE [facility] OR(Performed 11/02/2019) Performed for Lumbosacral radiculopathy at L5, Spondylolisthesis at L4-L5 level * BLOOD GASES ART COMPLETE [facility] OR(Performed 11/02/2019) Performed for Lumbosacral radiculopathy at L5, Spondylolisthesis at L4-L5 level * BLOOD GASES ART COMPLETE [facility] OR(Performed 11/02/2019) Performed for Lumbosacral radiculopathy at L5 * FUSION TRANSFORAMINAL LUMBAR INTERBODY (TLIF)(Performed 11/02/2019) Performed for Diagnosis unknown * FUSION ANTERIOR LUMBAR INTERBODY (ALIF)(Performed 11/02/2019) Performed for Diagnosis unknown * PERIPHERAL IV NOTE(Performed 11/02/2019) * ARTERIAL LINE NOTE(Performed 11/02/2019) * ENDOTRACHEAL TUBE NOTE(Performed 11/02/2019) * BASIC METABOLIC PANEL (CALCIUM TOTAL)(Performed 11/02/2019) * CBC W/O DIFFERENTIAL(Performed 11/02/2019) * PREPARE RBC LEUKOREDUCED UNIT(Performed 11/01/2019) Performed for Spondylolisthesis at L4-L5 level, Lumbosacral radiculopathy at L5 * DUSTIN DIRECT(Performed 11/01/2019) Performed for Spondylolisthesis at L4-L5 level * ANTIBODY IDENTIFICATION(Performed 11/01/2019) Performed for Spondylolisthesis at L4-L5 level * TYPE + SCREEN PANEL(Performed 11/01/2019) Performed for Spondylolisthesis at L4-L5 level * XR CHEST 1VW(Performed 10/22/2019) Performed for Spondylolisthesis at L4-L5 level, Spinal stenosis of lumbar region with neurogenic claudication, Lumbosacral radiculopathy at L5 * ANTIBODY IDENTIFICATION(Performed 10/22/2019) Performed for Spondylolisthesis at L4-L5 level, Spinal stenosis of lumbar region with neurogenic claudication, Lumbosacral radiculopathy at L5 * DUSTIN DIRECT(Performed 10/22/2019) Performed for Spondylolisthesis at L4-L5 level, Spinal stenosis of lumbar region with neurogenic claudication, Lumbosacral radiculopathy at L5 * TYPE + SCREEN PANEL(Performed 10/22/2019) Performed for Spondylolisthesis at L4-L5 level, Spinal stenosis of lumbar region with neurogenic claudication, Lumbosacral radiculopathy at L5 * URINALYSIS W/MICROSCOPIC NO CULTURE(Performed 10/22/2019) Performed for Spondylolisthesis at L4-L5 level, Spinal stenosis of lumbar region with neurogenic claudication, Lumbosacral radiculopathy at L5 * PTT [facility](Performed 10/22/2019) Performed for Spondylolisthesis at L4-L5 level, Spinal stenosis of lumbar region with neurogenic claudication, Lumbosacral radiculopathy at L5 * PT-INR [facility](Performed 10/22/2019) Performed for Spondylolisthesis at L4-L5 level, Spinal stenosis of lumbar region with neurogenic claudication, Lumbosacral radiculopathy at L5 * COMPREHENSIVE METABOLIC PANEL(Performed 10/22/2019) Performed for Spondylolisthesis at L4-L5 level, Spinal stenosis of lumbar region with neurogenic claudication, Lumbosacral radiculopathy at L5 * CBC W AUTO DIFFERENTIAL(Performed 10/22/2019) Performed for Spondylolisthesis at L4-L5 level, Spinal stenosis of lumbar region with neurogenic claudication, Lumbosacral radiculopathy at L5 * CULTURE URINE(Performed 10/22/2019) Performed for Spondylolisthesis at L4-L5 level, Spinal stenosis of lumbar region with neurogenic claudication, Lumbosacral radiculopathy at L5 * EKG 12-LEAD(Performed 10/22/2019) Performed for Spondylolisthesis at L4-L5 level, Spinal stenosis of lumbar region with neurogenic claudication, Lumbosacral radiculopathy at L5 * IR NERVE BLOCK L OR S UNILAT(Performed 05/03/2019) Performed for Foraminal stenosis of lumbar region Results * XR HIPS BILATERAL 2 VW W AP PELVIS (10/02/2021 12:02 PM [facility]ER) Anatomical Region Laterality Modality Pelvis, Lower Extremity Radiogra phic Imaging 10/02/2021 2:26 PM [facility] Narrative 10/02/2021 2:27 PM [facility] EXAM: XR PELVIS W BILAT HIP 2VW*[id number] INDICATION: Ankylosing spondylitis of unspecified sites in spine, pelvic pain, bilateral hip pain COMPARISON: none available FINDINGS: There is no displaced fracture or dislocation. There is no osseous destruction. There is joint space narrowing and acetabular subchondral sclerosis at bilateral hips. *Reading Radiologist: Sean Oscar on 10/02/2021 at 2:27 PM Procedure Note Sean Oscar MD - 10/02/2021 EXAM: XR PELVIS W BILAT HIP 2VW*[id number] INDICATION: Ankylosing spondylitis of unspecified sites in spine, pelvic pain, bilateral hip pain COMPARISON: none available FINDINGS: There is no displaced fracture or dislocation. There is no osseous destruction. There is joint space narrowing and acetabular subchondral sclerosis at bilateral hips. *Reading Radiologist: Sean Oscar on 10/02/2021 at 2:27 PM Quique Fitch MD DIAGNOSTIC IMAGING O RDERABLES * XR LUMBAR SPINE 2 OR 3VW (11/25/2020 2:12 PM CDT) Only the most recent of4 resultswithin the time period is included. Anatomical Region Laterality Modality Spine Radiographic Mayda ging 11/25/2020 2:36 PM CDT Impressions 11/25/2020 2:40 PM CDT Impression: Unchanged posterior instrumented spinal fusion of L4 to S1. This report was electronically signed by DUANE HARDEN ??on 11/25/2020 2:40 PM . Narrative 11/25/2020 2:40 PM CDT Examination: XR LUMBAR SPINE 2 OR 3VW History: M54.5: Low back pain, unspecified back pain laterality, unspecified chronicity, unspecified whether sciatica present Findings:Comparison to 04/15/2020. There is been no substantial change in posterior instrumented spinal fusion, posterior decompression and interbody fusion of L4-S1. There is no periprosthetic lucency or osteolysis. Vertebral body heights are normal. There is unchanged mild L3-L4 degenerative disc disease. Procedure Note Duane Harden MD - 11/25/2020 Examination: XR LUMBAR SPINE 2 OR 3VW History: M54.5: Low back pain, unspecified back pain laterality, unspecified chronicity, unspecified whether sciatica present Findings:Comparison to 04/15/2020. There is been no substantial change in posterior instrumented spinal fusion, posterior decompression and interbody fusion of L4-S1. There isno periprosthetic lucency or osteolysis. Vertebral body heights are normal. There is unchanged mild L3-L4 degenerative disc disease. Impression: Unchanged posterior instrumented spinal fusion of L4 to S1. This report was electronically signed by DUANE HARDEN on 11/25/2020 2:40PM . Greta PRIETO DIAGNOSTIC IMAGING O RDERABLES * MRI LUMBAR SPINE WO CONTRAST (05/28/2020 12:00 PM CDT) Anatomical Region Laterality Modality Spine Magnetic Resonan ce 05/28/2020 1:20 PM CDT Impressions 05/28/2020 5:41 PM CDT IMPRESSION: Postoperative appearance of lumbosacral fusion at L4-S1 is uncomplicated. Osseous bridging of interbody fusion cannot be verified on this study. Report dictated by Aric Winslow MD (vice president of development). I, Dr. KATRINA JONES have personally reviewed and interpreted this examination/study. This report was electronically signed by KATRINA JONES ??on 05/28/2020 5:41 PM . Narrative 05/28/2020 5:41 PM CDT EXAMINATION: MRI OF THE LUMBAR SPINE WITHOUT CONTRAST HISTORY: Z98.1: S/P lumbar spinal fusion TECHNIQUE: MRI of the lumbar spine was performed without contrast according to standard protocol. COMPARISON: Lumbar spine CT without contrast dated 08/13/2019 CORRELATION: Lumbar spine radiograph dated 04/15/2020. FINDINGS: The patient is status post surgical resection of the left superior articular process of L5, discectomy and interbody fusion of L4-L5 and L5-S1 as well as posterior fusion of L4-S1 using paired transpedicular screws and interconnecting rods. The artifact associated with metallic instrumentation limits evaluation of the adjacent structures. Considering that, the position of this screws through the HC lateral pedicles is satisfactory. Vertebral bodies are normal in height without evidence of compression fractures. Marrow signal intensity is normal. The conus medullaris terminates at the level of L2 and the distal spinal cord signal intensity is normal. The anterior and posterior longitudinal ligaments as well as the posterior ligamentous complex appear intact. The intervertebral discs are normal in height. Midline postsurgical scarring is noted. There is fatty atrophy of the paraspinal musculature at L5 and S1 levels. T12-L1 and L1-L2: The discs are normal. The lower cord, conus, central canal, neural foramina, exiting nerves and the facets are within normal spaces. There is minimal symmetric hypertrophy of ligamentum flavum. L2-L3 and L3-L4: There is no evidence of posterior disc herniation or bulging. There is mild bilateral facet osteoarthritis and moderate to severe symmetric hypertrophy of ligamentum flavum at each of these levels. Mild lateral recess stenosis at L3-L4 is present. The AP diameter of thecal sac anteroposteriorly in midline is normal at both levels and there is no significant lateral recess stenosis at L2-L3. There is no significant neural foraminal stenosis at these levels. L4-L5 and L5-S1: The postsurgical changes changes as discussed before, appear uncomplicated. The central canal, lateral recesses and neural foramina are normal in size. There is mild to moderate symmetric hypertrophy of ligamentum flavum at L4-L5. The facets are obscured by the screws and are not seen. Procedure Note Katrina Jones MD - 05/28/2020 EXAMINATION: MRI OF THE LUMBAR SPINE WITHOUT CONTRAST HISTORY: Z98.1: S/P lumbar spinal fusion TECHNIQUE: MRI of the lumbar spine was performed without contrast according to standard protocol. COMPARISON: Lumbar spine CT without contrast dated 08/13/2019 CORRELATION: Lumbar spine radiograph dated 04/15/2020. FINDINGS: The patient is status post surgical resection of the left superior articular process of L5, discectomy and interbody fusion of L4-L5 and L5-S1 as well as posterior fusion of L4-S1 using paired transpedicular screws and interconnecting rods. The artifact associated with metallic instrumentation limits evaluationof the adjacent structures. Considering that, the position of this screws through the HC lateral pedicles is satisfactory. Vertebral bodies are normal in height without evidence of compression fractures. Marrowsignal intensity is normal. The conus medullaris terminates at the level of L2 and the distal spinal cord signal intensity is normal. The anterior and posterior longitudinal ligaments as well as the posterior ligamentous complex appear intact. The intervertebral discs are normal in height. Midline postsurgical scarring is noted. There is fatty atrophy of the paraspinal musculature at L5 and S1 levels. T12-L1 and L1-L2: The discs are normal. The lower cord, conus, central canal, neural foramina, exiting nerves and the facets are within normal spaces. There is minimal symmetric hypertrophy of ligamentum flavum. L2-L3 and L3-L4: There is no evidence of posterior disc herniation or bulging. There is mild bilateral facet osteoarthritis and moderate to severe symmetric hypertrophy of ligamentum flavum at each of theselevels. Mild lateral recess stenosis at L3-L4 is present. The AP diameter of thecal sac anteroposteriorly in midline is normal at both levels andthere is no significant lateral recess stenosis at L2-L3. There is no significant neural foraminal stenosis at these levels. L4-L5 and L5-S1: The postsurgical changes changes as discussed before, appear uncomplicated. The central canal, lateral recesses and neural foramina are normal in size. There is mild to moderate symmetric hypertrophy of ligamentum flavum at L4-L5. The facets are obscured bythe screws and are not seen. IMPRESSION: Postoperative appearance of lumbosacral fusion at L4-S1 isuncomplicated. Osseous bridging of interbody fusion cannot be verified on this study. Report dictated by Aric Winslow MD (vice president of development). I, Dr. KATRINA JONES have personally reviewed and interpreted this examination/study. This report was electronically signed by KATRINA JONES on 05/28/2020 5:41 PM . Montana Holliday IV, MD MR ORDERABLES * CARDIAC EKG ORDER (12/22/2019 6:53 PM CDT) Narrative 12/22/2019 6:53 PM CDT Ordered by an unspecified provider. Scanned Document CARDIAC SERVICES ORD ERABLES * BASIC METABOLIC PANEL (CALCIUM TOTAL) (11/12/2019 2:57 AM CDT) Only the most recent of11 resultswithin the time period is included. BUN 7 7 - 26 mg/dL 11/12/2019 3:36 AM [facility] Creatinine 0.7 0.6 - 1.2 mg/dL 11/12/2019 3:36 AM [facility] Sodium 140 136 - 145 mmol/L 11/12/2019 3:36 AM [facility] Potassium 4.1 3.5 - 4.5 mmol/L 11/12/2019 3:36 AM [facility] Chloride 105 98 - 107 mmol/L 11/12/2019 3:36 AM [facility] CO2 25 22 - 29 mmol/L 11/12/2019 3:36 AM CDT [facility] Glucose 102 70 - 115 mg/dL 11/12/2019 3:36 AM [facility] Calcium 8.5 8.4 - 10.2 mg/dL 11/12/2019 3:36 AM [facility] Anion Gap 14 8 - 18 11/12/2019 3:36 AM [facility] BUN/Creatinine Ratio 10 7 - 23 11/12/2019 3:36 AM [facility] Osmolality Calculated 288 270 - 300 mOsm/kg 11/12/2019 3:36 AM [facility] eGFR >60 >60 mL/min/1.7 3 m2 11/12/2019 3:36 AM [facility] Blood BLOOD SPECIMEN / Unknown Lab Venipuncture / Unknown 11/12/2019 2:57 AM CDT 11/12/2019 3:10 AM CDT Julien Bullock Jr., MD LAB - CHEMISTR Y ORDERABLES Performing Organization Address [facility]/State/[facility] Co de Phone Number [address] [phone] * (ABNORMAL) CBC W/O DIFFERENTIAL (11/12/2019 2:56 AM CDT) Only the most recent of11 resultswithin the time period is included. WBC 7.0 3.5 - 10.5 10? 3 /uL 11/12/2019 3:19 AM [facility] RBC 3.10(L) 3.90 - 5.00 10? 6 /uL 11/12/2019 3:19 AM [facility] Hemoglobin 8.1(L) 12.0 - 15.5 g/dL 11/12/2019 3:19 AM [facility] Hematocrit 27.0(L) 35.0 - 45.0 % 11/12/2019 3:19 AM [facility] MCV 87.1 81.0 - 97.0 fL 11/12/2019 3:19 AM [facility] MCH 26.1(L) 28.0 - 34.0 pg 11/12/2019 3:19 AM [facility] MCHC 30.0(L) 32.0 - 36.0 g/dL 11/12/2019 3:19 AM [facility] Platelet Count 338 150 - 400 10? 3 /uL 11/12/2019 3:19 AM T [facility] RDW-SD 46.5 36.0 - 50.0 fL 11/12/2019 3:19 AM CDT [facility] RDW-CV 14.5 11.2 - 14.8 % 11/12/2019 3:19 AM T [facility] MPV 9.1(L) 9.3 - 12.8 fL 11/12/2019 3:19 AM [facility] nRBC Absolute 0.00 0 10? 3 /uL 11/12/2019 3:19 AM [facility] nRBC Auto 0.0 0 /100 WBC 11/12/2019 3:19 AM [facility] Blood BLOOD SPECIMEN / Unknown Lab Venipuncture / Unknown 11/12/2019 2:56 AM CDT 11/12/2019 3:10 AM CDT Julien Bullock Jr., MD LAB - HEMATOLO GY ORDERABLES Performing Organization Address [facility]/ZIP Co de Phone Number [address] [phone] * [place] OARM SURGERY (11/02/2019 3:19 PM [facility]) Narrative [facility] - 11/02/2019 3:20 PM [facility] Fluoroscopy was used for this exam in the OR. Please see the Operative report. Sammy Carrero MD FLUOROSCOPY ORDERABL ES Performing Organization Address [facility]/ZIP Co de Phone Number [facility] * [place] LEVI SURGERY (11/02/2019 3:02 PM [facility]ER) Narrative [facility] - 11/02/2019 3:03 PM [facility] Fluoroscopy was used for this exam in the OR. Please see the Operative report. Sammy Carrero MD FLUOROSCOPY ORDERABL ES Performing Organization Address [facility]/ZIP Co de Phone Number [facility] * (ABNORMAL) BLOOD GASES ART COMPLETE [facility] OR (11/02/2019 2:09 PM [facility]) Only the most recent of3 resultswithin the time period is included. pH Arterial 7.44 7.35 - 7.45 11/02/2019 2:13 PM [facility] pCO2 Arterial 33(L) 35 - 45 mmHg 11/02/2019 2:13 PM [facility] pO2 Arterial 165(H) 71 - 95 mmHg 11/02/2019 2:13 PM [facility] HCO3 Arterial 22.0 22.0 - 26.0 mmol/L 11/02/2019 2:13 PM [facility] TCO2 Arterial 23.0(L) 25.0 - 29.0 mmol/L 11/02/2019 2:13 PM [facility] Base Excess Arterial -1.8 -2.0 - 2.0 mmol/L 11/02/2019 2:13 PM [facility] Hemoglobin Arterial 9.1(L) 12.0 - 15.5 g/dL 11/02/2019 2:13 PM [facility] Oxyhemoglobin Arterial 97.7 95.0 - 100.0 % 11/02/2019 2:13 PM [facility] Carboxyhemoglobin 0.1 0.0 - 3.0 % 11/02/2019 2:13 PM [facility] Methemoglobin 0.3 0.0 - 2.0 % 11/02/2019 2:13 PM [facility] FI O2 Arterial 35.0 % 11/02/2019 2:13 PM [facility] Ionized Calcium Whole Blood 1.17 mmol/L 11/02/2019 2:13 PM [facility] Adjusted Ionized Calcium 1.19 1.19 - 1.34 mmol/L 11/02/2019 2:13 PM [facility] Sodium Whole Blood 139 135 - 145 mmol/L 11/02/2019 2:13 PM [facility] Potassium Whole Blood 4.0 3.5 - 5.5 mmol/L 11/02/2019 2:13 PM [facility] Chloride Whole Blood 109 101 - 111 mmol/L 11/02/2019 2:13 PM [facility] Glucose Whole Blood 120(H) 70 - 110 mg/dL 11/02/2019 2:13 PM [facility] Lactic Acid Whole Blood 2.3 0.5 - 3.4 mmol/L 11/02/2019 2:13 PM [facility] Blood ARTERIAL BLOOD SPECIMEN / Unknown Venipuncture / Unknown 11/02/2019 2:09 PM [facility] 11/02/2019 2:09 PM [facility] Mat Irizarry MD LAB - BLOOD GASES OR DERABLES [facility] [address] [phone] * IV PLACEMENT PERFORMABLE (11/02/2019 7:58 AM [facility]) Narrative Navneet Aguilar MD - 11/02/2019 7:58 AM [facility] Navneet Aguilar MD ? 11/02/2019 ??7:58 AM Peripheral IV Line Placement: Patient Location: ??OR Procedure: IV start ([id number]). Procedure Section: ?? Skin Prep: Chloraprep. Orientation: left Location: hand Local Anesthetic Used? ??No Catheter Gauge: 16 Number of Attempts: 1. Procedure Tolerance: performed while patient under general anesthesia. Procedure Start Time: 11/02/2019 7:35 AM. Staff Section ?? Anesthesia Provider: Mat Irizarry MD, Performed the procedure Provider #1: Navneet Aguilar MD. Mat Irizarry MD GENERAL ANESTHESIA O RDERABLES * ARTERIAL LINE PERFORMABLE (11/02/2019 7:58 AM [facility]) Narrative Navneet Aguilar MD - 11/02/2019 7:58 AM [facility] Navneet Aguilar MD ? 11/02/2019 ??7:58 AM Arterial Line Placement Procedure Note Patient Location: OR. Procedure: Arterial Line ([id number]). Procedure Section ?? Indications: hypotension and continuous blood pressure monitoring. Consent: informed consent was obtained for the procedure. Skin Prep: Chloraprep. Location: left radial. Site Identification: palpation. Sterile Technique: small sterile fenestrated drape, sterile gloves, mask and cap. Gauge: 20. Catheter Type: Arrow. Seldinger Technique Used? ??Yes Number of Attempts: 1. Line Secured with: tape and Tegaderm. Procedure Tolerance: tolerated well, performed while patient under general anesthesia and no immediate complications. Events: none. Staff Section ?? Anesthesia Provider: Navneet Aguilar MD, Performed the procedure Provider #1: Mat Irizarry MD. Mat Irizarry MD GENERAL ANESTHESIA O TOSHA * ETT LINE PERFORMABLE (11/02/2019 7:57 AM [facility]) Narrative Navneet Aguilar MD - 11/02/2019 7:57 AM [facility] Navneet Aguilar MD ? 11/02/2019 ??7:58 AM Endotracheal Tube Placement: ? Patient Location: OR. Intubation Event Date/Time: ??11/02/2019 7:33 AM Procedure: intubation (75831). Procedure Section: ?? Sedation: under general anesthesia. Indications for Airway Management: ??anesthesia Induction: standard IV Patient Position: ??sniffing and supine Mask Ventilation: easy. Blade Type: Jerry Blade Size: 3 Laryngoscopy View: grade 1 (full cords) Intubation Adjuncts: stylet Tube: endotracheal tube Placement: oral Tube type: cuff - inflated Tube Size (MM): 7 Depth of Insertion (CM): 21 Measured From: lips Cuff volume (mL): ??10 Cuff Inflated With: air Number of Attempts: 1. Placement Verified By: direct visualization, bilateral breath sounds, chest auscultation and CO2 monitor Tube secured with: ??adhesive tape. Difficult Airway? ??No. Procedure Start Time: 11/02/2019 7:33 AM. Staff Section ?? Anesthesia Provider: Navneet Aguilar MD, Performed the procedure Provider #1: Mat Irizarry MD. Mat Irizarry MD GENERAL ANESTHESIA O TOSHA * PREPARE (CROSSMATCH) RBC UNIT(S), 2 Units (11/01/2019 3:59 PM BOX [facility]ER) Unit Description LR Red Cells [facility] Unit ABO A [facility] Unit Rh POS [facility] Product Number RA2 [facility] Unit Donor # [id number] [facility] Unit Status released [facility] Product Code [id number] [facility] Blood Type Barcode 6200 [facility] Unit Description LR Red Cells [facility] Unit ABO A [facility] Unit Rh POS [facility] Product Number RA1 [facility] Unit Donor # [id number] [facility] Unit Status released [facility] Product Code [id number] [facility] Blood Type Barcode 6200 [facility] Blood Bank BLOOD SPECIMEN / Unknown 11/01/2019 3:59 PM [facility] 11/01/2019 3:59 PM [facility] Navneet Aguilar MD LAB - BLOOD BANK ORD ERABLES [facility] [address] [place] [address] * TYPE + SCREEN PANEL (11/01/2019 3:51 PM [facility]) Only the most recent of2 resultswithin the time period is included. Antibody Screen POS 0 4:36 PM [facility] ABO Rh A POS 11/01/2019 4:36 PM [facility] Blood Bank BLOOD SPECIMEN / Unknown Lab Venipuncture / Unknown 11/01/2019 3:51 PM [facility] 11/01/2019 3:58 PM [facility]ER Manuelito Young MD LAB - BLOOD BANK O RDISRAEL Performing Organization Address City/[facility]/ZIP Co de Phone Number [facility] [address] [place] [address] * DUSTIN DIRECT (11/01/2019 3:51 PM B[facility]) Only the most recent of2 resultswithin the time period is included. Direct Dustin (CALVIN) NEG 11/01/2019 5:25 PM [facility] Blood Bank BLOOD SPECIMEN / Unknown Lab Venipuncture / Unknown 11/01/2019 3:51 PM [facility] 11/01/2019 3:58 PM [facility] Manuelito Young MD LAB - BLOOD BANK O RDERABLES Performing Organization Address City/[facility]/ZIP Co de Phone Number [facility] [address] [place] [address] * ANTIBODY IDENTIFICATION (11/01/2019 3:51 PM [facility]) Only the most recent of2 resultswithin the time period is included. Antibody 1 POS, Anti-Lianna 11/01/2019 5:24 PM [facility] Blood Bank BLOOD SPECIMEN / Unknown Lab Venipuncture / Unknown 11/01/2019 3:51 PM [facility] 11/01/2019 3:58 PM [facility] Manuelito Young MD LAB - BLOOD BANK O RDERABLES [facility] [address] [place] [address], [facility] * XR CHEST 1VW (10/22/2019 12:37 PM BOX [facility]ER) Anatomical Region Laterality Modality Chest Radiographic Mayda ging 10/22/2019 1:43 PM [facility]ER Impressions 10/23/2019 8:23 AM [facility] IMPRESSION: No acute pulmonary process. Dictated by Leda Orourke MD (vice president of development). I, Dr. CAROL BUTLER have personally reviewed and interpreted this examination/study. This report was electronically signed by CAROL BUTLER ??on 10/23/2019 8:23 AM . Narrative 10/23/2019 8:23 AM [facility] EXAMINATION: XR CHEST 1VW HISTORY: M43.16: Spondylolisthesis at L4-L5 level M48.062: Spinal stenosis of lumbar region with neurogenic claudication M54.17: Lumbosacral radiculopathy at L5 COMPARISON: No prior study is available for comparison. FINDINGS: There is no focal consolidation, pleural effusion, or pneumothorax. The cardiomediastinal silhouette is normal. The visible bony thorax is intact. Procedure Note Carol Butler DO - 10/23/2019 EXAMINATION: XR CHEST 1VW HISTORY: M43.16: Spondylolisthesis at L4-L5 level M48.062: Spinal stenosis of lumbar region with neurogenic claudication M54.17: Lumbosacral radiculopathy at L5 COMPARISON: No prior study is available for comparison. FINDINGS: There is no focal consolidation, pleural effusion, or pneumothorax. The cardiomediastinal silhouette is normal. The visible bony thorax isintact. IMPRESSION: No acute pulmonary process. Dictated by Leda Orourke MD (vice president of development). I, Dr. CAROL BUTLER have personally reviewed and interpreted this examination/study. This report was electronically signed by CAROL BUTLER on 10/23/2019 8:23 AM . Sammy Carrero MD DIAGNOSTIC IMAGING O RDERABLES * PTT [facility] (10/22/2019 12:09 PM [facility]) APTT 28.7 23.0 - 38.4 Seconds 10/22/2019 2:11 PM [facility] Comment: * Please Note: ??New therapeutic range for heparin therapy * Suggested therapeutic range for full dose I.V. unfractionated heparin therapy for venous thromboembolism is 71 to 109 seconds. Blood BLOOD SPECIMEN / Unknown Lab Venipuncture / Unknown 10/22/2019 12:09 PM [facility] 10/22/2019 1:07 PM [facility] Sammy Carrero MD LAB - COAGULATION OR DERABLES [address] [phone] * PT-INR [facility] (10/22/2019 12:09 PM B[facility]ER) PT 12.5 12.1 - 14.8 Seconds 10/22/2019 2:11 PM [facility] INR 1.0 See Comment 10/22/2019 2:11 PM [facility] Comment:The suggested therap eutic range for standard coumadin (warfarin) therapy is an INR of 2.0-3.0. For high-risk patients (Mechanical Mitral Valve Prosthesis, etc.), the suggested prophylactic therapeutic range is an INR of 2.5-3.5. Blood BLOOD SPECIMEN / Unknown Lab Venipuncture / Unknown 10/22/2019 12:09 PM [facility] 10/22/2019 1:07 PM [facility] Sammy Carrero MD LAB - COAGULATION OR DERABLES [address] [phone] * (ABNORMAL) URINALYSIS W/MICROSCOPIC NO CULTURE (10/22/2019 12:09 PM [facility]ER) Color UA Straw Straw, Yellow, Colorless 10/22/2019 1:24 PM [facility] Clarity UA Slt Cloudy Clear, Slt Cloudy 10/22/2019 1:24 PM [facility] Specific [place] UA 1.008 1.005 - 1.030 10/22/2019 1:24 PM [facility] pH UA 6.0 5.0 - 8.0 pH 10/22/2019 1:24 PM [facility] Protein UA Negative Negative mg/dL 10/22/2019 1:24 PM [facility] Glucose UA Negative Negative mg/dL 10/22/2019 1:24 PM [facility] Ketone UA Negative Negative mg/dL 10/22/2019 1:24 PM [facility] Bilirubin UA Negative Negative mg/dL 10/22/2019 1:24 PM [facility] Blood UA Negative Negative 10/22/2019 1:24 PM [facility] Nitrite UA Negative Negative 10/22/2019 1:24 PM [facility] Leukocyte Esterase 3+(A) Negative 10/22/2019 1:24 PM [facility] Urobilinogen UA Negative Negative mg/dL 10/22/2019 1:24 PM [facility] RBC UA 3-5 None Seen, 0-2, 3-5 /HPF 10/22/2019 1:24 PM [facility] WBC UA 11-20(A) None Seen, 0-5 /HPF 10/22/2019 1:24 PM [facility] Bacteria UA 1+(A) None, Trace /HPF 10/22/2019 1:24 PM [facility] Squamous Epithelial Cells UA 3-5(A) None Seen, 0-2 /HPF 10/22/2019 1:24 PM [facility] Renal Epithelial Cells UA 0-2 None Seen, 0-2 /HPF 10/22/2019 1:24 PM [facility] Mucus UA 1+ None, 1+ /LPF 10/22/2019 1:24 PM [facility] Urine URINE SPECIMEN OBTAINED BY CLEAN CATCH PROCEDURE / Unknown Collection / Unknown 10/22/2019 12:09 PM [facility] 10/22/2019 1:07 PM [facility]ER Narrative [facility] - 10/22/2019 1:24 PM B[facility]ER aSmmy Carrero MD LAB - URINALYSIS ORD ERABLES Performing Organization Address City/[facility]/ZIP Co de Phone Number [facility] [address] [phone] * CULTURE URINE (10/22/2019 12:09 PM BOX [facility]ER) Culture Urine 10,000-50,000 CFU/mL urogenital dylon LETA 10/24/2019 3:58 AM [facility] MICROBIOLOGY Urine URINE SPECIMEN OBTAINED BY CLEAN CATCH PROCEDURE / Unknown Collection / Unknown 10/22/2019 12:09 PM [facility]ER 10/22/2019 1:07 PM [facility] Sammy Carrero MD LAB - MICROBIOLOGY O RDERABLES [facility] [address] [phone] * (ABNORMAL) CBC WITH DIFFERENTIAL (10/22/2019 12:09 PM B[facility]ER) WBC 3.5 3.5 - 10.5 10? 3 /uL 10/22/2019 1:16 PM [facility] RBC 5.02(H) 3.90 - 5.00 10? 6 /uL 10/22/2019 1:16 PM [facility] Hemoglobin 13.5 12.0 - 15.5 g/dL 10/22/2019 1:16 PM [facility] Hematocrit 43.5 35.0 - 45.0 % 10/22/2019 1:16 PM [facility] MCV 86.7 81.0 - 97.0 fL 10/22/2019 1:16 PM [facility] MCH 26.9(L) 28.0 - 34.0 pg 10/22/2019 1:16 PM [facility] MCHC 31.0(L) 32.0 - 36.0 g/dL 10/22/2019 1:16 PM [facility] Platelet Count 188 150 - 400 10? 3 /uL 10/22/2019 1:16 PM [facility] RDW-SD 44.0 36.0 - 50.0 fL 10/22/2019 1:16 PM [facility] RDW-CV 13.8 11.2 - 14.8 % 10/22/2019 1:16 PM [facility] MPV 10.3 9.3 - 12.8 fL 10/22/2019 1:16 PM [facility] nRBC Absolute 0.00 0 10? 3 /uL 10/22/2019 1:16 PM [facility] nRBC Auto 0.0 0 /100 WBC 10/22/2019 1:16 PM [facility] Neutrophils % 49.1 35.0 - 70.0 % 10/22/2019 1:16 PM [facility] Lymphocytes % 27.0 19.7 - 55.1 % 10/22/2019 1:16 PM [facility] Monocytes % 15.8(H) 3.0 - 15.0 % 10/22/2019 1:16 PM [facility] Eosinophils % 7.2(H) 0.0 - 6.0 % 10/22/2019 1:16 PM [facility] Basophil % 0.6 0.0 - 1.5 % 10/22/2019 1:16 PM [facility] Neutrophils Absolute 1.7 1.6 - 7.0 10? 3 /uL 10/22/2019 1:16 PM [facility] Lymphocyte Absolute 0.9 0.8 - 2.9 10? 3 /uL 10/22/2019 1:16 PM [facility] Monocytes Absolute 0.55 0.14 - 0.66 10? 3 /uL 10/22/2019 1:16 PM [facility] Eosinophils Absolute 0.25 0.00 - 0.45 10? 3 /uL 10/22/2019 1:16 PM [facility] Basophils Absolute 0.02 0.00 - 0.06 10? 3 /uL 10/22/2019 1:16 PM [facility] Immature Granulocytes % 0.3 0.0 - 1.0 % 10/22/2019 1:16 PM [facility] Blood BLOOD SPECIMEN / Unknown Lab Venipuncture / Unknown 10/22/2019 12:09 PM [facility] 10/22/2019 1:07 PM [facility] Sammy Carrero MD LAB - HEMATOLOGY ORD ERABLES [facility] [address] [phone] * (ABNORMAL) COMPREHENSIVE METABOLIC PANEL (10/22/2019 12:09 PM [facility]) BUN 8 7 - 26 mg/dL 10/22/2019 2:25 PM [facility] Creatinine 0.7 0.6 - 1.2 mg/dL 10/22/2019 2:25 PM [facility] Sodium 140 136 - 145 mmol/L 10/22/2019 2:25 PM [facility] Potassium 4.1 3.5 - 4.5 mmol/L 10/22/2019 2:25 PM [facility] Chloride 103 98 - 107 mmol/L 10/22/2019 2:25 PM [facility] CO2 28 22 - 29 mmol/L 10/22/2019 2:25 PM [facility] Glucose 88 70 - 115 mg/dL 10/22/2019 2:25 PM [facility] Calcium 9.8 8.4 - 10.2 mg/dL 10/22/2019 2:25 PM [facility] Protein Total 8.5(H) 6.0 - 8.3 g/dL 10/22/2019 2:25 PM [facility] Albumin 4.1 3.4 - 5.0 g/dL 10/22/2019 2:25 PM [facility] Bilirubin Total 0.5 0.2 - 1.2 mg/dL 10/22/2019 2:25 PM [facility] Alkaline Phosphatase 98 40 - 150 Units/L 10/22/2019 2:25 PM [facility] ALT 24 0 - 55 Units/L 10/22/2019 2:25 PM [facility] AST 22 5 - 34 Units/L 10/22/2019 2:25 PM [facility] Anion Gap 13 8 - 18 10/22/2019 2:25 PM [facility] BUN/Creatinine Ratio 11 7 - 23 10/22/2019 2:25 PM [facility] Osmolality Calculated 288 270 - 300 mOsm/kg 10/22/2019 2:25 PM [facility] Albumin/Globulin Ratio 0.9(L) 1.1 - 2.3 10/22/2019 2:25 PM [facility] eGFR >60 >60 mL/min/1.7 3 m2 10/22/2019 2:25 PM [facility] Blood BLOOD SPECIMEN / Unknown Lab Venipuncture / Unknown 10/22/2019 12:09 PM [facility] 10/22/2019 1:07 PM [facility] Sammy Carrero MD LAB - CHEMISTRY AZUL HAT[facility] Organization Address City/State/ZIP Co de Phone Number [address] [phone] * EKG 12-LEAD (10/22/2019 11:04 AM [facility]) Ventricular Rate 81 BPM [facility] Atrial Rate 81 BPM [facility] P-R Interval 126 ms [facility] QRS Duration ms 78 ms [facility] Q-T Interval ms 364 ms [facility] QTC Calculation (Bezet) 422 ms [facility] Calculated P [place] 68 degrees [facility] Calculated R [place] 45 degrees [facility] Calculated T [place] 30 degrees [facility] Interpretation EKG NORMAL SINUS RHYTHM NORMAL ECG NO PREVIOUS ECGS AVAILABLE Confirmed by David Oscar ([id number]), web content editor Bernardino Barreto ([id number]) on 11/28/2019 6:23:48 PM [facility] 10/22/2019 11:0 4 AM [facility] 11/28/2019 6:23 PM CDT Sammy Carrero MD ECG ORDERABLES [facility] * IR NERVE BLOCK L OR S UNILAT (05/03/2019 4:31 PM CDT) Anatomical Region Laterality Modality X-Ray Angiograph y 05/03/2019 5:12 PM CDT Impressions 05/08/2019 10:41 AM CDT Impression: Left L5-S1 transforaminal epidural steroid injection under fluoroscopic guidance. Dr. Chang performed/was present throughout the procedure. This report was approved ??by Audie Christianson ?? on 05/03/2019 5:14 PM . I, Dr. KELLIE CHANG M.D. have personally reviewed and interpreted this examination/study. This report was electronically signed by KELLIE CHANG M.D. ??on 05/08/2019 10:41 AM . Narrative 05/08/2019 10:41 AM CDT History: 59-year-old female with lower back pain, extending to both lower extremities, sharp, throbbing in nature, 03/14. She presents for left L5-S1 transforaminal epidural steroid injection. Operators: 1.Dr. Chang, Attending Physician 2.Dr. Christianson, Fellow Physician Anesthesia: Local with 5 mL of 1% lidocaine. Procedure: Fluoroscopy-guided left L5-S1 transforaminal epidural steroid injection. Fluoroscopic time: 2.5 minutes ?Contrast: 1 mL of Isovue 200M Procedure details: The procedure, risks, and possible complications were explained to the patient in detail, and informed consent was obtained. The patient was placed prone on the procedure table. The lower back was prepped and draped in the usual sterile manner. Pre-procedure fluoroscopy was done in the region of interest, and the needle entry site was marked on the lower back. After injection of 1% lidocaine for local anesthesia, a 22-gauge 5-inch spinal needle was advanced below the pedicle. Contrast was injected and confirmed proper positioning as it was seen outlining the nerve root. Subsequently, a mixture of 1 mL betamethasone (6 mg/mL) and 1 mL 0.5% bupivacaine was injected. The needle was removed, and sterile dressing was applied. The patient tolerated the procedure well and was transferred to the holding area in stable condition. There were no immediate complications associated with the procedure. The patient's pain level before the procedure was 7/10. The patient's pain level after the procedure was 0/10. Procedure Note Kellie Chang MD - 05/08/2019 History: 59-year-old female with lower back pain, extending to bothlower extremities, sharp, throbbing in nature, 7/10. She presents for leftL5-S1 transforaminal epidural steroid injection. Operators: 1.Dr. Chang, Attending Physician 2.Dr. Christianson, Fellow Physician Anesthesia: Local with 5 mL of 1% lidocaine. Procedure: Fluoroscopy-guided left L5-S1 transforaminal epidural steroid injection. Fluoroscopic time: 2.5 minutes Contrast: 1 mL of Isovue 200M Procedure details: The procedure, risks, and possible complications were explained to the patient in detail, and informed consent was obtained.The patient was placed prone on the procedure table. The lower back was prepped and draped in the usual sterile manner. Pre-procedure fluoroscopy was done in the region of interest, and the needle entry site was marked on the lower back. After injection of 1% lidocaine for local anesthesia, a 22-gauge 5-inch spinal needle was advanced below the pedicle. Contrast was injected and confirmed proper positioning as it was seen outlining the nerve root. Subsequently, a mixture of 1 mL betamethasone (6 mg/mL) and 1 mL 0.5% bupivacaine was injected. The needle was removed, and sterile dressing was applied. The patient tolerated the procedure well and was transferred to the holding area in stable condition. There were no immediate complications associated with the procedure. The patient's pain level before the procedure was 7/10. The patient'armando level after the procedure was 0/10. Impression: Left L5-S1 transforaminal epidural steroid injection under fluoroscopic guidance. Dr. Chang performed/was present throughout the procedure. This report was approved by Audie Christianson on 05/03/2019 5:14 PM . I, Dr. KELLIE CHANG M.D. have personally reviewed andinterpreted this examination/study. This report was electronically signed by KELLIE CHANG M.D. on 05/08/2019 10:41 AM . Sammy Carrero MD IR ORDERABLES Care Teams Inside Sales Associate Relationship Specialty Start Date End Date Esperanza Ho MD [address] [place] [address] PCP - General 04/10/19
--- OUTSIDE RECORDS SUMMARY | 2024-08-26 07:03 | XMS_ITS | Referral Summary ---
Author Organization [facility] Address [address] [place] [address] Care Team Providers Care Wedding Planner Name Role Phone Esperanza Ho MD Primary Care Provider + Source Comments [facility],non-owned Affiliates and Associated Physician Practices is amultiple site organization consisting of ambulatory clinics and hospital sitesin [place], [place], [place] and [place]. This disclosure is being madepursuant to the Care Everywhere program and may not contain all information available regarding this patient. Last updated 18.[facility] Allergies No known active allergies Medications * Be aware that medications may not be up to date on this document. Alwaysverify current medications with the patient. Medication Sig Dispensed Refills Start Date End Date Status amitriptyline (ELAVIL) 25 MG tablet Take 25 mg by mouth at bedtime Active DULoxetine (CYMBALTA) 30 MG capsule Take 30 mg by mouth once daily Active senna-docusate (SENOKOT-S) 8.6-50 MG tablet Take 1 tablet by mouth 2 times daily 60 tablet 11/23/2019 Active Additional Information Patient not taking.Reported on 04/15/2020 polyethylene glycol 3350 (MIRALAX) powder TAKE 17 GRAMS BY MOUTH ONCE DAILY 238 g 12/17/2019 Active Additional Information Patient not taking.Reported on 04/15/2020 oxyCODONE-acetamin ophen (PERCOCET) 10-325 MG tabletIndications: S/P lumbar spinal fusion Take 1 tablet by mouth every 4 hours as needed for Pain 42 tablet 01/25/2020 Active Additional Information Patient not taking.Reported on 04/15/2020 zolpidem (AMBIEN) 10 MG tablet Take 10 mg by mouth at bedtime 02/25/2020 Active gabapentin (NEURONTIN) 300 MG capsule Take 1 (one) capsule by mouth 3 times daily 90 capsule 2 11/25/2020 Active Active Problems Problem Noted Date Diagnosed Date [...] Mass Index 35.35 01/21/2021 3:57 PM CDT Functional Status Functional Status Response Date of Assess ment Is person deaf or have serious hearing difficult y? No 11/01/2019 Is person blind or have serious difficulty seein g? No 11/01/2019 Does person have serious dif ficulty walking/climbing stairs? No 11/01/2019 Does person have difficulty dressing/bathing? No 11/01/2019 Does person have difficulty doing errands alone? No 11/01/2019 Cognitive Status Response Date of Assessm ent Does person have difficulty concentrating/remembering/making decisions? No 11/01/2019 Plan of Treatment Not on file Medical Devices Implanted Type Area Fire Sprinkler Inspector Device Identifier Shelf Expiration Date Model / Serial / Lot Spcr Spnl 12mm Primtr 12d Lrdtc Lg Vert Implanted:Qty: 1 on 11/02/2019 by Sammy Carrero MD at [facility] N/A: Spine Lumbar Medtronic Sof[employer]or [employer] 02/17/2024 [id number] / / Graft Bone Infs Bvn Clgn Rhbmp-2 Sm 2.8 Implanted:Qty: 1 on 11/02/2019 by Sammy Carrero MD at [facility] N/A: Spine Lumbar Medtronic [employer] [id number] / / Spcr Spnl 12mm Primtr 12d Lrdtc Lg Vert Implanted:Qty: 1 on 11/02/2019 by Sammy Carrero MD at [facility] N/A: Spine Lumbar Medtronic [employer] [id number] / / Graft Bone Canc 4-9.5mm 30cc Algrf Frzdr Implanted:Qty: 1 on 11/02/2019 by Sammy Carrero MD at [facility] N/A: Spine Lumbar Allosource [id number] / / Screw Set Ti Spnl Brk Off Cd Hzn Nonster Implanted:Qty: 6 on 11/02/2019 by Sammy Carrero MD at [facility] N/A: Spine Medtronic [employer] [id number] / / Screw 6.5mm 40mm Ma Spne Solera Cd Hzn Implanted:Qty: 4 on 11/02/2019 by Sammy Carrero MD at [facility] N/A: Spine Medtronic [employer] [id number] / / Screw 7.5mm 40mm Ma Spne Solera Cd Hzn Implanted:Qty: 2 on 11/02/2019 by Sammy Carrero MD at [facility] N/A: Spine Medtronic [employer]or [employer] [id number] / / Roger Spnl 70mm 5.5mm Cd Hzn Crv Cocrmo Implanted:Qty: 2 on 11/02/2019 by Sammy Carrero MD at [facility] N/A: Spine Medtronic Inc [id number] / / Procedures Procedure Name Priority Date/Time Associated Diagnosis Comments BASIC METABOLIC PANEL (CALCIUM TOTAL) AM Draw 11/12/2019 2:57 AM CDT from Last 3 Months or Most Recently Relevant to Health Maintenance Results * BASIC METABOLIC PANEL (CALCIUM TOTAL) (11/12/2019 2:57 AM CDT) BUN 7 7 - 26 mg/dL 11/12/2019 3:36 AM [facility] Creatinine 0.7 0.6 - 1.2 mg/dL 11/12/2019 3:36 AM [facility] Sodium 140 136 - 145 mmol/L 11/12/2019 3:36 AM [facility] Potassium 4.1 3.5 - 4.5 mmol/L 11/12/2019 3:36 AM [facility] Chloride 105 98 - 107 mmol/L 11/12/2019 3:36 AM [facility] CO2 25 22 - 29 mmol/L 11/12/2019 3:36 AM [facility] Glucose 102 70 - 115 mg/dL 11/12/2019 3:36 AM [facility] Calcium 8.5 8.4 - 10.2 mg/dL 11/12/2019 3:36 AM [facility] Anion Gap 14 8 - 18 11/12/2019 3:36 AM [facility] BUN/Creatinine Ratio 10 7 - 23 11/12/2019 3:36 AM [facility] Osmolality Calculated 288 270 - 300 mOsm/kg 11/12/2019 3:36 AM [facility] eGFR >60 >60 mL/min/1.7 3 m2 11/12/2019 3:36 AM [facility] Blood BLOOD SPECIMEN / Unknown Lab Venipuncture / Unknown 11/12/2019 2:57 AM CDT 11/12/2019 3:10 AM CDT Julien Bullock Jr., MD LAB - CHEMISTR Y ORDERABLES [address] [phone] from Last 3 Months or Most Recently Relevant to Health Maintenance Advance Directives * Full Code (Latest Code Status on File) Date Activated Date Inactivated Comments 11/01/2019 2:49 PM 11/12/2019 9:11 PM Care Teams Wedding Planner Relationship Specialty Start Date End Date Esperanza Ho MD [address] [place] [id number] PCP - General 04/10/19
--- OUTSIDE RECORDS SUMMARY | 2024-08-26 07:03 | XMS_ITS | Encounter Summary ---
Author Organization [facility] Address [address] [place] [address] Care Team Providers Care Glass Glazier Name Role Phone Esperanza Ho MD Primary Care Provider + Reason for Visit * Reason Comments Low Back Pain Encounter Details Date Type Department Care Team (Late st Contact Info) Description 01/21/2021 3:15 PM CDT Office Visit [facility] - Orthopedics [address] [place] [address], [facility] [place] [address] Greta Levy PA No Information available Lumbar radiculopathy (Primary Dx); S/P lumbar spinal fusion Social History Tobacco Use Types Packs/Day Years Used Date Smoking Tobacco: Former Smokeless Tobacco: Never Comments:1/2 pack week Alcohol Use Standard Drinks/Week Comments Not Currently 0 (1 standard drink = 0.6 oz pur e alcohol) Sex and Gender Information Value Date Recorded Sex Assigned at Not on file Gender Identity Not on file Sexual Orientation Not on file documented as of this encounter Last Filed Vital Signs Vital Sign Reading Time Taken Comments Blood Pressure - - Pulse - - Temperature - - Respiratory Rate - - Oxygen Saturation - - Inhaled Oxygen Concentration - - Weight 99.3 kg (219 lb) 01/21/2021 3:57 PM CDT Height 167.6 cm (5' 6 ) 01/21/2021 3:57 PM CDT Body Mass Index 35.35 01/21/2021 3:57 PM CDT documented in this encounter Functional Status Functional Status Response Date of [...] person have difficulty concentrating/remembering/making decisions? No 11/01/2019 documented as of this encounter Patient Instructions * Patient Instructions* Greta Levy PA - 01/21/2021 4:18 PM CDT Images from the original note were not included. - [email or web address] Orthopa[facility] Saray Teague Fish 01/21/2021 Thank you for coming in to see us today. Work/School Excuse: Excused from Work/School on 01/21/21 DIAGNOSIS: Lumbar radiculopathy S/P lumbar spinal fusion Plan: We discussed and recommended conservative treatment and education which includes: icing 20 minutes at a time, 3 to 5 times daily, anti-inflammatory medications and tylenol Start gabapentin 300mg, two pills at bedtime for the next month. Follow up: send a [employer] message in 4 weeks with an update on your symptoms Call or return to clinic prn if these symptoms worsen or fail to improve as anticipated. If approved to take by your primary care physician, NSAIDs (non-steroidal anti- inflammatory drugs) such as Aleve/naproxen and Motrin/ibuprofen are suggested to relieve inflammation and pain for a short course of therapy for 10 days, advised to take with food. If you develop any adverse side effectssuch as dysphasia, stomach pain, or changes in bladder, please discontinue the medication immediately. Please take the following to promote bone health: ?? Multivitamin 1 tablet daily ?? Vitamin D3 and Calcium as directed by your primary care provider. Cryotherapy is commonly used to reduce temperature, inflammation, pain, muscle spasm and symptoms of delayed onset muscle soreness. There are various methods of ice application such as ice pack, coldpack, cold water immersion, ice massage. You may apply ice to the affected area for 10 minutes at atime. To Find out more info about your diagnosis, visit: [email or web address].[email or web address]/ Patient was educated and given information regarding their diagnosis today. [facility] Orthopaedic office contact information: Please contact our call center at , option #1 to make an appointment Our Locations: [facility] [address] [place] [address], [address] [address] Please contact the MA at , if you have any further questions or concerns. [facility] [address] [place] [id number] Please contact the office at if you have any further questions or concerns. Sincerely, ANA Saba PA-C [email or web address] documented in this encounter Progress Notes * Greta Levy PA - 01/21/2021 4:10 PM CDT ESTABLISHED PATIENT VISIT Patient ID: Saray Whitten is a 60 year old female. CHIEF COMPLAINT Lower back pain HISTORY OF PRESENT ILLNESS: Patient is a 60 year old female who presents for return evaluation of lower back pain. Patient was last seen on 11/25/20 and was prescribed gabapentin 300mg. She has only been able to tolerate 300mg Qhs as it caused daytime sleepiness. Pain has improved since her last visit with us. Pain is located in the midline to right lower back; there is pain in the posterior calf and the plantar foot bilaterally; medial thigh pain has resolved. Pain is constant and described as cramping, no more burning pain. Symptoms worsen with prolonged sitting; pain in the legs is still present when laying in bed at night usually 3-4 times per week although it is not severe now. Symptoms are relieved with changing positions during the day; getting up and walking at night helps the nighttime pain; gabapentin has been helpful also. Patient has tried Tylenol and pain medication postoperatively; Tylenol is not helping now. MEDICAL/SURGICAL/FAMILY/SOCIAL HISTORY-reviewed in chart REVIEW OF SYSTEMS - Constitutional: negative for fever, chills, night sweats; Urinary: negative forurinary retention or incontinence; GI: negative for bowel incontinence PHYSICAL EXAM: Alert, oriented and cooperative. Mood and affect appropriate. Gait without deviation. Skin warm and dry. Standing posture erect without forward leaning or hyperlordosis. Respirations even unlabored. No cyanosis, clubbing or edema. LUMBAR EXAMINATION: Gross inspection of the lumbar spine demonstrates overall alignment is normal. There is no gross deformity appreciated and no step off noted. Tenderness to palpation is over the lumbsosacral junction. Overall range of motion includes: Flexion 45 deg.; Extension 20 deg; Lateral Flexion 15 deg. bilaterally.; Rotation 10 deg. Bilaterally. Sit-slump test is negative on both sides. ?? HIP EXAMINATION: Range of motion includes: Flexion 120; IRF 30; ERF 50; Abduction 40. slight pain bilateral hips with flexion; IR/ER not painful. Hip flexor strength is 5 out of 5. Logroll is negative. Posterior pelvic thrust is neg bilaterally, Ganga's test is neg bilaterally, Gaenslen's test is neg bilaterally. ?? SKIN: Inspection and palpation of the skin of the lumbar region without eyrthema, edema, rashes, or lesions. ?? LOWER DERMATOMES Right: Anterior & Medial Thigh (L3) Intact Medial Leg & Ankle (L4) Intact Dorsal Foot & 1st Web Space (L5) Intact Lateral & Plantar Foot (S1) Intact Left: Anterior & Medial Thigh (L3) Intact Medial Leg & Ankle (L4) Intact Dorsal Foot & 1st Web Space (L5) Intact Lateral & Plantar Foot (S1) Intact LOWER MYOTOMES Right: Quadriceps (Knee Ext. L3-L4) 5 /5 Tibialis Ant. (Ankle DF L4)5 /5 EHL (Toe DF, L5) 5 /5 Gastrocnemius (Ankle PF S1) 5 /5 Left: Quadriceps (Knee Ext. L3-L4) 5 /5 Tibialis Ant. (Ankle DF L4)5 /5 EHL (Toe DF, L5) 5 /5 Gastrocnemius (Ankle PF S1) 5 /5 LOWER REFLEXES Right: Knee Extension (L4) 2+ Achilles (S1) 2+ Clonus negative Left: Knee Extension (L4) 2+ Achilles (S1) 2+ Clonus negative VASCULAR: Bilateral lower extremity without edema, pallor, or rubor. Capillary refill brisk. ?? PULMONARY: Unlabored respirations. IMAGING: No new films today. ASSESSMENT: Improving lower back and leg pain TREATMENT PLAN: 60 year old female with improving pain in the lower back and legs. Neuro exam is reassuring today. She will increase gabapentin to 600mg Qhs for the next 4 weeks. She will contact the clinic in 4 weeks with an update on symptoms. 1. Patient was counseled to the nature of the diagnosis and demonstrated understanding. All questions answered. 2. PT: hold for now 3. Rx: gabapentin 600mg Qhs 4. Injection: none 5. Lifting/Activity restrictions: none 6. Follow up in 4 weeks via MyChart 7. Follow up Imaging: none ANA Saba, PA-C [facility] [place] Orthopaedic Surgery Collaborative practice with Dr. Jaspreet Deras, Dr. Juve Goff, and Dr. Titus Resendiz. * Cesilia Leavitt - 01/21/2021 3:54 PM CDT Lumbar spine f/u. Pt reports decreased pain but continues pain in bilateral anterior legs and feet. documented in this encounter Plan of Treatment Not on file documented as of this encounter Visit Diagnoses Diagnosis Lumbar radiculopathy- Primary Thoracic or lumbosacral neuritis or radiculitis, unspecified S/P lumbar spinal fusion Arthrodesis status documented in this encounter Care Teams Glass Glazier Relationship Specialty Start Date End Date Esperanza Ho MD [address] [place] [address] PCP - General 04/10/19 documented as of this encounter
--- OUTSIDE RECORDS SUMMARY | 2024-08-26 07:03 | XMS_ITS | Clinical Summary ---
Author Organization [facility] [employer] Address [address] [place] [address] Care Team Providers Care Customer Experience Analyst Name Role Phone Esperanza Ho MD Primary Care Provider + Source Comments [facility] [employer],non-owned Affiliates and Associated Physician Practices is amultiple site organization consisting of ambulatory clinics and hospital sitesin [place], [place], [place] and [place]. This disclosure is being madepursuant to the Care Everywhere program and may not contain all information available regarding this patient. Last updated 18.[facility] [employer] Allergies No known active allergies Medications * [...] Mass Index 35.35 01/21/2021 3:57 PM CDT Plan of Treatment Health Maintenance Due Date Last Done Comments BONE DENSITY TESTING 1959 COLOGUARD (AGES 45-75) - COLON CA SCREENING 1959 COLON MONITORING 1959 COLONOSCOPY - COLON CA SCREENING 1959 CT COLONOGRAPHY - COLON CA SCREENING 1959 Colorectal Cancer Screening 1959 FIT - COLON CA SCREENING 1959 FLEX SIG - COLON CA SCREENING 1959 LIPID TESTING 1959 MAMMOGRAM 1959 PAP SMEAR 1959 HIV SCREENING 1974 HEPATITIS C SCREENING 03/12/1977 DTAP/TDAP/TD VACCINES (1 - Tdap) 1978 ZOSTER VACCINE (1 of 2) 2009 SCREENING FOR DIABETES 11/11/2022 0, 11/11/2019, 11/10/2019, Additional history exists DEPRESSION SCREENING 09/05/2023 PNEUMOCOCCAL VACCINE 65+ (1 of 1 - PCV) 2024 COVID-19 VACCINE (1 - 2023-25 season) 2024 INFLUENZA VACCINE (#1) 2024 Respiratory Syncytial Virus (RSV) Vaccine Pt: or over 60 yrs (1 - 1-dose 75+ series) 2034 HEPATITIS B VACCINE Aged Out No longe r eligible based on patient's age to complete this topic HIB VACCINE Aged Out No longer eligi ble based on patient's age to complete this topic HPV VACCINE Aged Out No longer eligi ble based on patient's age to complete this topic MENINGOCOCCAL VACCINE Aged Out No eugenio dimitrios eligible based on patient's age to complete this topic Medical Devices Implanted Type Area Dye Feeder Device Identifier Shelf Expiration Date Model / Serial / Lot Spcr Spnl 12mm Primtr 12d Lrdtc Lg Vert Implanted:Qty: 1 on 11/02/2019 by Sammy Carrero MD at [facility] N/A: Spine Lumbar Medtronic [employer] 02/17/2024 [id number] / / Graft Bone Infs Bvn Clgn Rhbmp-2 Sm 2.8 Implanted:Qty: 1 on 11/02/2019 by Sammy Carrero MD at [facility] N/A: Spine Lumbar Medtronic [employer] [id number] / / Spcr Spnl 12mm Primtr 12d Lrdtc Lg Vert Implanted:Qty: 1 on 11/02/2019 by Sammy Carrero MD at [facility] N/A: Spine Lumbar Medtronic [employer] [id number] / / Graft Bone Canc 4-9.5mm 30cc Algrf Frzdr Implanted:Qty: 1 on 11/02/2019 by Sammy Carrero MD at [facility] N/A: Spine Lumbar Allosource [id number] / / Screw Set Ti Spnl Brk Off Cd Hzn Nonster Implanted:Qty: 6 on 11/02/2019 by Sammy Carrero MD at [facility] N/A: Spine Medtronic [employer] [id number] / / Screw 6.5mm 40mm Ma Spne Solera Cd Hzn Implanted:Qty: 4 on 11/02/2019 by Sammy Carrero MD at [facility] N/A: Spine Medtronic [employer] [id number] / / Screw 7.5mm 40mm Ma Spne Solera Cd Hzn Implanted:Qty: 2 on 11/02/2019 by Sammy Carrero MD at [facility] N/A: Spine Medtronic [employer] [id number] / / Roger Spnl 70mm 5.5mm Cd Hzn Crv Cocrmo Implanted:Qty: 2 on 11/02/2019 by Sammy Carrero MD at [facility] N/A: Spine Med[employer]onic Inc [id number] / / Procedures Procedure Name Priority Date/Time Associated Diagnosis Comments BASIC METABOLIC PANEL (CALCIUM TOTAL) AM Draw 11/12/2019 2:57 AM CDT from Last 3 Months or Most Recently Relevant to Health Maintenance Results * BASIC METABOLIC PANEL (CALCIUM TOTAL) (11/12/2019 2:57 AM CDT) BUN 7 7 - 26 mg/dL 11/12/2019 3:36 AM CDT [facility] Creatinine 0.7 0.6 - 1.2 mg/dL 11/12/2019 3:36 AM CDT [facility] Sodium 140 136 - 145 mmol/L 11/12/2019 3:36 AM CDT [facility] Potassium 4.1 3.5 - 4.5 mmol/L 11/12/2019 3:36 AM T [facility] Chloride 105 98 - 107 mmol/L 11/12/2019 3:36 AM CDT [facility] CO2 25 22 - 29 mmol/L 11/12/2019 3:36 AM CDT [facility] Glucose 102 70 - 115 mg/dL 11/12/2019 3:36 AM [facility] Calcium 8.5 8.4 - 10.2 mg/dL 11/12/2019 3:36 AM [facility] Anion Gap 14 8 - 18 11/12/2019 3:36 AM [facility] BUN/Creatinine Ratio 10 7 - 23 11/12/2019 3:36 AM [facility] Osmolality Calculated 288 270 - 300 mOsm/kg 11/12/2019 3:36 AM [facility] eGFR >60 >60 mL/min/1.7 3 m2 11/12/2019 3:36 AM [facility] Blood BLOOD SPECIMEN / Unknown Lab Venipuncture / Unknown 11/12/2019 2:57 AM CDT 11/12/2019 3:10 AM CDT Julien Bullock Jr., MD LAB - CHEMISTR Y ORDERABLES Performing Organization Address City/State/[facility] Co de Phone Number [address] [phone] from Last 3 Months or Most Recently Relevant to Health Maintenance Advance Directives * Full Code (Latest Code Status on File) Date Activated Date Inactivated Comments 11/01/2019 2:49 PM 11/12/2019 9:11 PM Care Teams Customer Experience Analyst Relationship Specialty Start Date End Date Esperanza Ho MD [address] [place] [address] PCP - General 04/10/19
--- OUTSIDE RECORDS SUMMARY | 2024-08-26 07:03 | XMS_ITS | Encounter Summary ---
Author Organization [facility] Address [address] [place] [address] Care Team Providers Care Facetor Name Role Phone Esperanza Ho MD Primary Care Provider + Encounter Details Date Type Department Care Team (Latest Contact Info) Description 10/02/2021 11:50 AM WALLPAPER INSPECTOR - 10/02/2021 11:59 PM WALLPAPER INSPECTOR Hospital Encounter [facility] Imaging Services - Radiology [address] [place], [place] [id number] Quique Fitch MD Discharge Disposition: Home or Self Care Social History Tobacco Use Types Packs/Day Years Used Date Smoking Tobacco: Former Smokeless Tobacco: Never Comments:1/2 pack week Alcohol Use Standard Drinks/Week Comments Not Currently 0 (1 standard drink = 0.6 oz pur e alcohol) Sex and Gender Information Value Date Recorded Sex Assigned at Not on file Gender Identity Not on file Sexual Orientation Not on file documented as of this encounter Functional Status Functional Status Response [...] No 11/01/2019 documented as of this encounter Medications at Time of Discharge Medication Sig Dispensed Refills Start Date End Date amitriptyline (ELAVIL) 25 MG tablet Take 25 mg by mouth at bedtime DULoxetine (CYMBALTA) 30 MG capsule Take 30 mg by mouth once daily gabapentin (NEURONTIN) 300 MG capsule Take 1 (one) capsule by mouth 3 times daily 90 capsule 2 11/25/2020 oxyCODONE-acetaminophen (PERCOCET) 10-325 MG tabletIndications:S/P lumbar spinal fusion Take 1 tablet by mouth every 4 hours as needed for Pain 42 tablet 01/25/2020 polyethylene glycol 3350 (MIRALAX) powder TAKE 17 GRAMS BY MOUTH ONCE DAILY 238 g 12/17/2019 senna-docusate (SENOKOT-S) 8.6-50 MG tablet Take 1 tablet by mouth 2 times daily 60 tablet 11/23/2019 zolpidem (AMBIEN) 10 MG tablet Take 10 mg by mouth at bedtime 02/25/2020 documented as of this encounter Plan of Treatment Not on file documented as of this encounter Procedures Procedure Name Priority Date/Time Associated Diagnosis Comments XR PELVIS W BILAT HIP 2VW Routine 10/02/2021 12:02 PM WALLPAPER INSPECTOR Ankylosing spondylitis, unspecified site of spine (HCC) OLEG positive documented in this encounter Results * XR HIPS BILATERAL 2 VW W AP PELVIS (10/02/2021 12:02 PM WALLPAPER INSPECTOR) Anatomical Region Laterality Modality Pelvis, Lower Extremity [facility] 10/02/2021 2:26 PM WALLPAPER INSPECTOR Narrative 10/02/2021 2:27 PM WALLPAPER INSPECTOR EXAM: XR PELVIS W BILAT HIP [id number] INDICATION: Ankylosing spondylitis of unspecified sites in spine, pelvic pain, bilateral hip pain COMPARISON: none available FINDINGS: There is no displaced fracture or dislocation. There is no osseous destruction. There is joint space narrowing and acetabular subchondral sclerosis at bilateral hips. *Reading Radiologist: Sean Oscar on 10/02/2021 at 2:27 PM Procedure Note Sean Oscar MD - 10/02/2021 EXAM: XR PELVIS W BILAT HIP [id number] INDICATION: Ankylosing spondylitis of unspecified sites in spine, pelvic pain, bilateral hip pain COMPARISON: none available FINDINGS: There is no displaced fracture or dislocation. There is no osseous destruction. There is joint space narrowing and acetabular subchondral sclerosis at bilateral hips. *Reading Radiologist: Sean sOcar on 10/02/2021 at 2:27 PM Quique Fitch MD DIAGNOSTIC IMAGING O RDERABLES documented in this encounter Visit Diagnoses Diagnosis Ankylosing spondylitis, unspecified site of spine (HCC) OLEG positive Other and unspecified nonspecific immunological findings documented in this encounter Care Teams Facetor Relationship Specialty Start Date End Date Esperanza Ho MD [address] [place] [address] PCP - General 04/10/19 documented as of this encounter
--- OUTSIDE RECORDS SUMMARY | 2024-08-26 07:03 | XMS_ITS | Encounter Summary ---
Author Organization [facility] Address [address] [place] [address] Care Team Providers Care Nurse Private Duty Name Role Phone Esperanza Ho MD Primary Care Provider + Reason for Visit * Reason Comments Low Back Pain Encounter Details Date Type Department Care Team (Late st Contact Info) Description 11/25/2020 2:15 PM CDT Office Visit [facility] Orth[facility] [address] [place] [phone] Greta Levy PA No Information available Low back pain, unspecified back pain laterality, unspecified chronicity, unspecified whether sciatica present (Primary Dx) Social History Tobacco Use Types Packs/Day Years [...] - Inhaled Oxygen Concentration - - Weight 99.4 kg (219 lb 3.2 oz) 11/25/2020 2:24 P M CDT Height 167.6 cm (5' 6 ) 11/25/2020 2:24 PM CDT Body Mass Index 35.38 11/25/2020 2:24 PM CDT documented in this encounter Functional [...] * Patient Instructions* Greta Levy PA - 11/25/2020 2:45 PM CDT Images from the original note were not included. - [email or web address] Orth[facility] Saray Whitten 11/25/2020 Thank you for coming in to see us today. Work/School Excuse: Excused from Work/School on 11/25/20 DIAGNOSIS: Low back pain, unspecified back pain laterality, unspecified chronicity, unspecified whether sciatica present - Plan: XR LUMBAR SPINE 2 OR 3VW Plan: We discussed and recommended conservative treatment and education which includes: icing 20 minutes at a time, 3 to 5 times daily, anti-inflammatory medications and tylenol gabapentin 300mg at night x7days, then 300mg two times daily x7 days, then 300mg three times daily Follow up: 4 weeks Call or return to clinic prn if [...] and given information regarding their diagnosis today. [facility] office contact information: Please contact our call center at , option #1 to make an appointment Our Locations: [facility] [address] [place] [address], [address] [phone] Please contact the MA at , if you have any further questions or concerns. formerly [facility] [address] [place] [address] Please contact the office at if you have any further questions or concerns. Sincerely, ANA Saba PA-C [email or web address] documented in this encounter Progress Notes * Greta Levy PA - 11/25/2020 2:30 PM CDT ESTABLISHED PATIENT VISIT Patient ID: Saray Whitten is a 60 year old female. CHIEF COMPLAINT Lower back pain HISTORY OF PRESENT ILLNESS: Patient is a 60 year old female who presents for return evaluation of lower back pain. Patient was last seen in May 2020 for 7 month postoperative evaluation with Dr. Carrero. She had L4-S1 ALIFand L4-S1 PISF on 11/02/[address] Carrero. Pain is located in the midline to right lower back; there is pain in the medial thigh, posterior calf, and toes that is severe. Pain is constant; it is burning in the lower back and cramping in the legs. Symptoms worsen with prolonged standing or sitting; pain in the legs is severe when laying in bed at night usually 3-4 times per week. Symptoms are relieved with changing positions during the day; getting up and walking at night helps the nighttime pain. Patient has tried Tylenol and pain medication [...] Sit-slump test is negative on both sides. HIP EXAMINATION: Range of motion includes: Flexion 120; IRF 30; ERF 50; Abduction 40. slight pain bilateral hips with flexion; IR/ER not painful. Hip flexor strength is 5 out of 5. Logroll is negative. Posterior pelvic thrust is neg bilaterally, Ganga's test is neg bilaterally, Gaenslen's test is neg bilaterally. SKIN: Inspection and palpation of the skin of the lumbar region without eyrthema, edema, rashes, or lesions. LOWER DERMATOMES Right: Anterior & Medial Thigh [...] edema, pallor, or rubor. Capillary refill brisk. PULMONARY: Unlabored respirations. IMAGING: Imaging of lumbar spine ordered today and reviewed by me revealing no substantial change in posterior instrumented spinal fusion, posterior decompression and interbody fusion of L4-S1. Thereis no periprosthetic lucency or osteolysis. Vertebral body heights are normal. There is unchanged mild L3-L4 degenerative disc disease. ASSESSMENT: Lower back pain with bilateral leg pain TREATMENT PLAN: 60 year old female with pain in the lower back and legs. H&P have elements of lumbar radiculopathy and hip pain. I would like to start medication for neuropathic pain. She will start gabapentin 300mg Qhs and titrate up to TID dosing as tolerated. She will return in 4 weeks for reassessment. 1. Patient was counseled to the nature of the diagnosis and demonstrated understanding. All questions answered. 2. PT: hold for now 3. Rx: gabapentin 300mg TID 4. Lifting/Activity restrictions: none 5. Follow up in 4 weeks 6. Follow up Imaging: none Greta Levy [facility], PA-C [facility] Orthopaedic Surgery Collaborative practice with Dr. Jaspreet Deras, Dr. Juve Goff, and Dr. Titus Resendiz. * Cesilia Leavitt - 11/25/2020 2:23 PM CDT Lumbar spine f/u. Pt reports continued discomfort on right lower back. documented in this encounter Plan of Treatment Not on file documented as of this encounter Results * XR LUMBAR SPINE 2 OR 3VW (11/25/2020 2:12 PM CDT) Anatomical Region Laterality Modality Spine Radiographic Mayda ging 11/25/2020 2:36 PM CDT Impressions 11/25/2020 2:40 PM CDT Impression: Unchanged posterior instrumented spinal fusion of L4 to S1. This report was electronically signed by JUAN JOSÉ LARSON ??on 11/25/2020 2:40 PM . Narrative 11/25/2020 [...] mild L3-L4 degenerative disc disease. Procedure Note Juan José Larson MD - 11/25/2020 Examination: XR LUMBAR SPINE [...] S1. This report was electronically signed by JUAN JOSÉ LARSON on 11/25/2020 2:40PM . [facility] documented in this encounter Visit Diagnoses Diagnosis Low back pain, unspecified back pain laterality, unspecified chronicity, unspecified whether sciatica present- Primary Low back pain, unspecified back pain laterality, unspecified chronicity, unspecified whether sciatica present documented in this encounter Care Teams Nurse Private Duty Relationship Specialty Start Date End Date Esperanza Ho MD [address] [place] [address] PCP - General 04/10/19 documented as of this encounter
--- OUTSIDE RECORDS SUMMARY | 2024-08-26 07:03 | XMS_ITS | Encounter Summary ---
Author Organization [facility] Address [address] [place] [address] Care Team Providers Care Price Clerk Name Role Phone Esperanza Ho MD Primary Care Provider + Encounter Details Date Type Department Care Team (Late st Contact Info) Description 11/25/2020 2:08 PM CDT - 11/25/2020 11:59 PM CDT Hospital Encounter [facility]ST[facility] RAD [facility] [address] [facility] [place] [address] Greta Levy PA No Information available Discharge Disposition: Home or Self Care Social [...] Name Priority Date/Time Associated Diagnosis Comments XR LUMBAR SPINE 2 OR 3VW Routine 11/25/2020 2:12 PM CDT Low back pain, unspecified back pain laterality, unspecified chronicity, unspecified whether sciatica present documented in this encounter Results * XR LUMBAR SPINE 2 OR 3VW (11/25/2020 2:12 PM CDT) Anatomical Region Laterality Modality Spine Radiographic Mayda ging 11/25/2020 2:36 PM CDT Impressions 11/25/2020 2:40 PM CDT Impression: Unchanged posterior instrumented spinal fusion of L4 to S1. This report was electronically signed by DUANE LARSON ??on 11/25/2020 2:40 PM . Narrative [...] L3-L4 degenerative disc disease. Procedure Note Duane Larson MD - 11/25/2020 Examination: XR LUMBAR [...] This report was electronically signed by DUANE LARSON on 11/25/2020 2:40PM . Greta [facility] documented in this encounter Visit Diagnoses Diagnosis Low back pain, unspecified back pain laterality, unspecified chronicity, unspecified whether sciatica present documented in this encounter Care Teams Price Clerk Relationship Specialty Start Date End Date Esperanza Ho MD [address] [place] [address] PCP - General 04/10/19 documented as of this encounter
--- OUTSIDE RECORDS SUMMARY | 2024-08-26 07:04 | XMS_ITS | Encounter Summary ---
Author Organization [facility] Address [address] [place] [address] Care Team Providers Care Roving Marker Name Role Phone Esperanza Ho MD Primary Care Provider + Encounter Details Date Type Department Care Team (Latest Contact Info) Description 04/15/2020 Travel Social History Tobacco Use Types Packs/Day Years Used Date Smoking Tobacco: Former Smokeless Tobacco: Never Comments:1/2 pack week Alcohol Use Standard Drinks/Week Comments Not Currently 0 (1 standard drink = 0.6 oz pur e alcohol) Sex and Gender Information Value Date Recorded Sex Assigned at Not on file Gender Identity Not on file Sexual Orientation Not on file COVID-19 Exposure Response Date Recorded In the last month, have you been in contact with someone who was confirmed or suspected to have Coronavirus / COVID-19? Unable to assess 04/15/2020 2:16 PM CDT documented as of this encounter Functional Status [...] No 11/01/2019 documented as of this encounter Plan of Treatment Not on file documented as of this encounter Visit Diagnoses Not on filedocumented in this encounter Care Teams Roving Marker Relationship Specialty Start Date End Date Esperanza Ho MD [address] [place] [address] PCP - General 04/10/19 documented as of this encounter
--- OUTSIDE RECORDS SUMMARY | 2024-08-26 07:04 | XMS_ITS | Encounter Summary ---
Author Organization [facility] Address [address] [place] [address] Care Team Providers Care Business Systems Technician Name Role Phone Esperanza Ho MD Primary Care Provider + Encounter Details Date Type Department Care Team (Late st Contact Info) Description 05/03/2019 Orders Only [facility] [address] [facility] [place] [phone] Bernard Hayes, RN [address] [place] [address] Social History Tobacco Use Types Packs/Day Years Used Date Smoking Tobacco: Never Smokeless Tobacco: Never Sex and Gender Information Value Date Recorded Sex Assigned at Not on file Gender Identity Not on file Sexual Orientation Not on file documented as of this encounter Plan of Treatment Not on file documented as of this encounter Visit Diagnoses Not on filedocumented in this encounter Care Teams Business Systems Technician Relationship Specialty Start Date End Date Esperanza Ho MD [address] [place] [address] PCP - General 04/10/19 documented as of this encounter
--- OUTSIDE RECORDS SUMMARY | 2024-08-26 07:04 | XMS_ITS | Encounter Summary ---
Author Organization [facility] Address [address] [facility] [place] [address] Care Team Providers Care Mattress Spring Encaser Name Role Phone Esperanza Ho MD Primary Care Provider + Encounter Details Date Type Department Care Team (Late st Contact Info) Description 10/22/2019 10:30 AM LOT TECHNICIAN - 10/22/2019 10:59 AM [facility] Hospital Encounter [facility] [address] [place] [phone] Sammy Carrero MD [address] [facility] [address] [place] [address] Discharge Disposition: Home or Self Care Anesthesia Record Procedure Summary Procedure Name Responsible Anesthesiologist Anesthesia Start Time Anesthesia Stop Time L4/5 L5/S1 ANTERIOR LUMBAR INTERBODY FUSION (Spine Lumbar) Mat Irizarry MD 11/02/19 0725 11/02/19 1625 Events Date Time Event Comment 11/02/2019 0718 0725 Pt In Room 0725 An Start 0727 An Start Data 0728 Anes Timeout 0729 PT Reassessment 0731 Induction 0733 An Intubation 0735 PIV Placement 0740 Insert Art Line 0745 Anes Ready 0814 Time Out Anesthesia part icipated in timeout at the time documented in the record by nursing 0816 Proc Start 1617 Proc Stop 1617 An Emergence 1619 Extubation 1621 an stop data 1621 Pt out of Room 1621 ANPTO2 1625 An Stop Meds * Agents No agents on file. * Blood No blood administrations on file. Lines, Drains, and Airways Type Details Placement Removal Peripheral IV Date: 11/01/19; Time : 1556; Orientation: Anterior, Right 11/01/19 1556 by Ivanna Godwin RN 11/02/19 1641 by Yandy Ramos RN ETT Date: 11/02/19; Time : 0733; Placed By: Navneet Aguilar MD; Vent: easy mask; Induction: Standard IV; Blade Type: Jerry; Blade Size: 3; Laryngoscopy View: Grade 1 (full cords); Intubation Adjuncts: Stylet; Tube: Endotracheal Tube; Placement: Oral; Tube Type: Cuffed-inflated; Tube Size(mm): 7 MM; Depth of Insertion: 21 CM; Measured From: lips; Attempts: 1; Cuff Infated: Air; Cuff Vol(mL): 10 mL; Verified By: Direct visualization, Bilateral breath sounds, Chest Auscultation, CO2 Monitor 11/02/19 0733 by Navneet Aguilar MD 11/02/19 1619 by Mohsen Rios DO Peripheral IV Date: 11/02/19; Time : 0735; Orientation: Left; Placed By: Mat Irizarry MD; Tolerance: General Anesthesia 11/02/19 0735 by Navneet Aguialr MD 11/06/19 2307 by Annmarie Quach, RN Urethral Catheter 11/02/19; 0745; Mariana Harvey RN; Double-lumen / 2-Way, Temperature probe; No; 16; 10 mL; General Anesthesia; 11/05/19; 0600; Per protocol; Silvana Miller 11/02/19 0745 by Aneta Harvey RN 11/05/19 0600 by Zahira Avila, COLETTE Arterial Line Date: 11/02/19; Time : 0758; Placed By: Navneet Aguilar MD; Gauge: 20; Line Secured: Taped; Tolerance: Well, General Anesthesia 11/02/19 0758 by Navneet Aguilar MD 11/02/19 1653 by Yandy Ramos RN Procedural Site (Incision) 11/02/19; 1200; Abdomen; Incision closed, exofin, 4x4 and ioband; 11/13/19; 0206 11/02/19 1200 by Aneta Harvey RN 11/13/19 0206 by Generic, Auto Release Peripheral IV Date: 11/02/19; Time : 1300; Orientation: Right; Placed By: Mohsen Rios DO; Length (in): 1.25 ; Tolerance: General Anesthesia 11/02/19 1300 by Mohsen Rios DO 11/05/19 0600 by Zahira Avila RN Drain 11/02/19; 1503; Dr. Carrero; 1; Round; Accordian; 10 Sri Lankan; BARD; [id number]; [id number]; Lower; Back; General Anesthesia; 11/05/19 11/02/19 1503 by Christine Stein RN 11/05/19 0000 by Annmarie Quach RN Procedural Site (Incision) 11/02/19; 1625; Back; Exofin 4x4s, Ioban ; 11/13/19; 0206 11/02/19 1625 by Christine Stein RN 11/13/19 0206 by Generic, Auto Release documented in this encounter Social History Tobacco Use Types Packs/Day Years Used Date Smoking Tobacco: Former Smokeless Tobacco: Never Comments:1/2 pack week Alcohol Use Standard Drinks/Week Comments Not Currently 0 (1 standard drink = 0.6 oz pur e alcohol) Sex and Gender Information Value Date Recorded Sex Assigned at Not on file Gender Identity Not on file Sexual Orientation Not on file documented as of this encounter Medications at Time of Discharge Medication Sig Dispensed Refills Start Date End Date amitriptyline (ELAVIL) 25 MG tablet Take 25 mg by mouth at bedtime DULoxetine (CYMBALTA) 30 MG capsule Take 30 mg by mouth once daily documented as of this encounter Plan of Treatment Not on file documented as of this encounter Visit Diagnoses Diagnosis Spondylolisthesis at L4-L5 level- Primary Lumbosacral radiculopathy at L5 Thoracic or lumbosacral neuritis or radiculitis, unspecified documented in this encounter Care Teams Mattress Spring Encaser Relationship Specialty Start Date End Date Esperanza Ho MD [address] [place] [address] PCP - General 04/10/19 documented as of this encounter
--- OUTSIDE RECORDS SUMMARY | 2024-08-26 07:04 | XMS_ITS | Encounter Summary ---
Author Organization [facility] Address [address] [place] [address] Care Team Providers Care Manufacturing Project Engineer Name Role Phone Esperanza Ho MD Primary Care Provider + Reason for Visit * Reason Onset Date Comments MEDICATION REFILL 11/23/2019 Encounter Details Date Type Department Care Team (Late st Contact Info) Description 11/23/2019 Refill [facility] [address] [facility] [place] [address] Sammy Carrero MD [address] [facility] [facility] [address] [place] [address] MEDICATION REFILL Social History Tobacco Use Types Packs/Day Years [...] No 11/01/2019 documented as of this encounter Miscellaneous Notes * Telephone Encounter - Bernard Hayes, RN - 11/23/2019 2:29 PM CDT Pt is status post L4-S1 ALIF, L4-S1 PISF by Dr. Carrero on 11/02/2019. Pt reports adequate pain control at this time. ?? Pt continues to struggle with constipation. Pt use magnesium citrate on Tuesday had a small bowel movement after and has not had BM since. ?? Last Fill 11/16/2019 Next Visit: 01/08/20 Increased senokot s to two times daily Orders placed for miralax Orders placed and forwarded to Dr. Carrero for review. ?? documented in this encounter Plan of Treatment Not on file documented as of this encounter Visit Diagnoses Diagnosis S/P lumbar spinal fusion- Primary Arthrodesis status documented in this encounter Care Teams Manufacturing Project Engineer Relationship Specialty Start Date End Date Esperanza Ho MD [address] [place], [place] [id number] PCP - General 04/10/19 documented as of this encounter
--- OUTSIDE RECORDS SUMMARY | 2024-08-26 07:04 | XMS_ITS | Encounter Summary ---
Author Organization [facility] Address [address] [facility] [place] [address] Care Team Providers Care Steamblaster Name Role Phone Esperanza Ho MD Primary Care Provider + Encounter Details Date Type Department Care Team (Late st Contact Info) Description 01/21/2020 Orders Only [facility] [address] [facility] [place] [address] Bernard Hayes, RN [address] [place], [place] [id number] S/P lumbar spinal fusion ; Low back pain, unspecified back pain laterality, unspecified chronicity, unspecified whether sciatica present Social History Tobacco Use Types Packs/Day Years [...] S/P lumbar spinal fusion- Primary Arthrodesis status Low back pain, unspecified back pain laterality, unspecified chronicity, unspecified whether sciatica present documented in this encounter Care Teams Steamblaster Relationship Specialty Start Date End Date Esperanza Ho MD [address] [place] [address] PCP - General 04/10/19 documented as of this encounter
--- OUTSIDE RECORDS SUMMARY | 2024-08-26 07:04 | XMS_ITS | Encounter Summary ---
Author Organization [facility] Address [address] [place] [address] Care Team Providers Care Welfare Eligibility Worker Name Role Phone Esperanza Ho MD Primary Care Provider + Reason for Visit * Reason Comments Low Back Pain SI injection f/u, Pt reports no relief Encounter Details Date Type Department Care Team (Late st Contact Info) Description 05/15/2019 2:15 PM CDT Office Visit [facility] - Orthopedics [address] [place] [address] Sammy Carrero MD [address] [facility] [address] [facility] [address] [place] [address] Lumbosacral radiculopathy at L5 (Primary Dx); Spondylolisthesis at L4-L5 level Social History Tobacco Use Types Packs/Day Years Used Date Smoking Tobacco: Never Smokeless Tobacco: Never Sex and Gender Information Value Date Recorded Sex Assigned at Not on file Gender Identity Not on file Sexual Orientation Not on file documented as of this encounter Last Filed Vital Signs Vital Sign Reading Time Taken Comments Blood Pressure 153/73 05/15/2019 2:45 PM CDT Pulse 77 05/15/2019 2:45 PM CDT Temperature 36.4 ??C (97.5 ??F) 05/15/2019 2:45 PM CD T Respiratory Rate - - Oxygen Saturation - - Inhaled Oxygen Concentration - - Weight 93.9 kg (207 lb) 05/15/2019 2:45 PM CDT Height 167.6 cm (5' 6 ) 05/15/2019 2:45 PM CDT Body Mass Index 33.41 05/15/2019 2:45 PM CDT documented in this encounter Progress Notes * Juve Lindsay MD - 05/15/2019 3:31 PM CDT [facility] Orthopedic Spine Surgery Clinic Note Saray Whitten, 59 year old, female : 1960 CSN: [id number] Primary Care Physician: Esperanza Ho MD Diagnosis/Procedures 1.) 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 Pain is located in the lower back and is described as achy with radiation to buttock and posterior leg pain. Patient does have pain at night. Patient is able to walk/stand for less than 10 minutes and less than 100 feet without pain. Pain has not changed since last visit. For pain control the patient has used duloxetine and amitriptyline with minimal relief. They have not participated in PT in the past. They have not received steroid injections in the past. She has not worked on her weight management. 2 weeks ago had CALIXTO and responded for few hours. Denies bowel/bladder retention or incontinence. ROS otherwise negative. ?? Smoking status: non smoker ?? Pertinent Background Information: Prior orthopedic injuries/surgeries: No Diabetic: No Smoking history: No Objective BP 153/73 (BP SITE: RIGHT ARM, BP POSITION: SITTING, BP CUFF SIZE: 11L) Pulse 77 Temp 97.5 ??F (36.4 ??C) (Oral) Ht 1.676 m (5' 6 ) Wt 93.9 kg (207 lb) BMI 33.41 kg/m2 PMHx No past medical history on file. PSHx No past surgical history on file. Social Hx Social History Tobacco Use ??? Smoking status: Never Smoker ??? Smokeless tobacco: Never Used Substance Use Topics ??? Alcohol use: Not on file Family Hx family history is not on file. Allergies No Known Allergies Medications Current Outpatient Medications Medication ??? amitriptyline (ELAVIL) 25 MG tablet ??? DULoxetine (CYMBALTA) 30 MG capsule No current facility-administered medications for this visit. Review of Systems A 12 point review of systems was performed and was negative except forwhat was mentioned in the HPI Physical Exam General appearance: awake, cooperative, NAD Neck: -Tenderness to palpation: present, midline lower cervical ?? Back: -Tenderness to palpation: present, lumbar midline Posture - Erect posture with no cervical thrust, list, or torticollis noted ?? Bilateral Upper Extremity: - Motor: ? Shoulder Abduction (C5) 5/5 Elbow Extension (C7) 5/5 Elbow Flexion (C5-palm up; C6 - thumb up) 5/5 Wrist Extension (C6) 5/5 Wrist Flexion (C7) 5/5 Finger Flexion (C8) 5/5 Finger Abduction (T1) 5/5 - Sensory: intact to light touch - Souza's sign is negative - Reflexes: Biceps: Normal Triceps: Normal BR: Normal ?? Bilateral Lower Extremity: - Motor: ? Hip Flexion (L2/3) 5/5 Knee Flexion 5/5 Knee Extension (L4) 5/5 Ankle Dorsiflexion (L5) 5/5 Great Toe Extension (L5) 5/5 Ankle Plantarflexion (S1) 5/5 - Sensation: deficit noted - blunted sensation of right leg more than left on entire lower extremity - Straight Leg Raise: positive left - Clonus: absent - Reflexes: Knee Jerk: Normal Achilles: Normal ?? Gait - Walks with reciprocal heel/toe gait. Able to demonstrate heel walk, toe walk, and tandem gait without difficulty. Imaging - MRI lumbar spine taken and reviewed. 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 1. Patient was counseled to the nature of their diagnosis and demonstrated understanding. Questionssolicited and answered. 2. PT/OT recommended 3. Operative vs non-operative management was discussed with patient 4. It was explained it is not emergency at this time and she can think more about it instead of making decision today. 5. Return to clinic whenever feel ready to discuss about surgery. She can contact us and book appointment. Juve Lindsay MD 05/15/2019 3:31 PM Attending Physician Supervisory Note I personally interviewed and examined the patient and agree with the doctor above. We discussed an L4-S1 AP fusion given no history of prior abdominal surgeries. She will consider our discussion and contact me should she wish to proceed. Sammy Carrero MD * Cesilia Leavitt - 05/15/2019 2:49 PM CDT Chief Complaint: Chief Complaint Patient presents with ??? Low Back Pain SI injection f/u, Pt reports no relief BP 153/73 (BP SITE: RIGHT ARM, BP POSITION: SITTING, BP CUFF SIZE: 11L) Pulse 77 Temp 97.5 ??F (36.4 ??C) (Oral) Ht 1.676 m (5' 6 ) Wt 93.9 kg (207 lb) BMI 33.41 kg/m2 documented in this encounter Plan of Treatment Not on file documented as of this encounter Visit Diagnoses Diagnosis Lumbosacral radiculopathy at L5- Primary Thoracic or lumbosacral neuritis or radiculitis, unspecified Spondylolisthesis at L4-L5 level documented in this encounter Care Teams Welfare Eligibility Worker Relationship Specialty Start Date End Date Esperanza Ho MD [address] [place] [address] PCP - General 04/10/19 documented as of this encounter
--- OUTSIDE RECORDS SUMMARY | 2024-08-26 07:04 | XMS_ITS | Encounter Summary ---
Author Organization [facility] Address [address] [place] [address] Care Team Providers Care Programs Director Name Role Phone Esperanza Ho MD Primary Care Provider + Reason for Visit * Reason Onset Date Comments Update 07/23/2019 Encounter Details Date Type Department Care Team (Late st Contact Info) Description 07/23/2019 Telephone [facility] Medical Group - Family Medicine [address] [place] [phone] Sammy Carrero MD [address] [place] [address] Update Social History Tobacco Use Types Packs/Day Years Used Date Smoking Tobacco: Never Smokeless Tobacco: Never Sex and Gender Information Value Date Recorded Sex Assigned at Not on file Gender Identity Not on file Sexual Orientation Not on file documented as of this encounter Miscellaneous Notes * Telephone Encounter - Shayy Betancourt MA - 07/24/2019 11:39 AM MEDIA INTERN This is not a patient here. I called [facility], as there is nothing for Salma to pre cert, as we did not order the test - nor is pt under our care. Addie advises that they were trying to contact Dr. Sammy Carrero at [facility]. A INTERN * Telephone Encounter - Verna Perez LPN - 07/23/2019 3:11 PM CST Pt needs a Precert for a ct lumbar spine on 07/31/19 A INTERN * Telephone Encounter - Huma Moncada - 07/23/2019 3:02 PM CST Who is calling? Addie If other than self is caller listed on the HIPAA? no If caller is anyone other than listed above, where are they calling from? From [facility] What is the reason for call? Received order for ct of lumbar spine, informing PCP they do not presort Appointment is 07/31 4:30 PM Expected Response from the Clinic? ( ex. Call back, etc..) [phone] A INTERN documented in this encounter Plan of Treatment Not on file documented as of this encounter Visit Diagnoses Not on filedocumented in this encounter Care Teams Programs Director Relationship Specialty Start Date End Date Esperanza Ho MD [address] [place] [address] PCP - General 04/10/19 documented as of this encounter
--- OUTSIDE RECORDS SUMMARY | 2024-08-26 07:04 | XMS_ITS | Encounter Summary ---
Author Organization [facility] Address [address] [place] [address] Care Team Providers Care Software Architect Name Role Phone Esperanza Ho MD Primary Care Provider + Encounter Details Date Type Department Care Team (Late st Contact Info) Description 10/22/2019 12:05 PM TRAUMA DOCTOR - 10/22/2019 11:59 PM [facility] Hospital Encounter [facility] DIAGNOSTIC RAD OP [address] [place] [id number] Sammy Carrero MD [address] [facility] [address] [place] [address] Discharge Disposition: Home or Self Care Social [...] once daily documented as of this encounter Consult Notes * Danny Mccray MD - 10/22/2019 12:05 PM CST TRANSFUSION MEDICINE SERVICE: ANTIBODY EVALUATION Clinical Summary: The patient is a 59-year-old woman who presents for preoperative laboratory evaluation prior to undergoing lumbar fusion. Laboratory Evaluation: The patient is blood type A-positive and has a reactive antibody screen. Additional testing revealsan anti-Vidya blood group antibody. All other clinically significant antibodies are ruled out. The CALVIN (Direct Antiglobulin Test = Direct Dustin??? Test) is negative. In addition, the patient???s own red blood cells type negative for the Vidya antigen. Assessment: The Vidya antigen is a member of the Bon blood group system. The immune response to this antigen ispredominantly IgM and is ???naturally occurring?? (i.e. does not result from previous red blood cell exposure, as with transfusion or ). Vidya antibodies are only rarely implicated in hemolytic transfusion reactions. Recommendations: 1. Transfuse as clinically indicated. 2. If the patient requires future transfusion, we will provide units that are crossmatch-compatible. The crossmatch should provide an excellent measure of transfusion safety with respect to the hemolytic potential of the patient???s Vidya antibody. Josey Harding MD - PGY V Transfusion Medicine Fellow [facility] Department of Pathology Pager: These data have been reviewed and interpreted by a teaching pathologist. Danny Mccray MD, MPH Transfusion Service School Child Care Attendant [facility] Pager: [phone] [place] DOCTOR documented in this encounter Plan of Treatment Not on file documented as of this encounter Procedures Procedure Name Priority Date/Time Associated Diagnosis Comments XR CHEST 1VW Routine 10/22/2019 12:37 PM TRAUMA DOCTOR Spondylolisthesis at L4-L5 level Spinal stenosis of lumbar region with neurogenic claudication Lumbosacral radiculopathy at L5 documented in this encounter Results * XR CHEST 1VW (10/22/2019 12:37 PM TRAUMA DOCTOR) Anatomical Region Laterality Modality Chest Radiographic Mayda ging 10/22/2019 1:43 PM TRAUMA DOCTOR Impressions 10/23/2019 8:23 AM TRAUMA DOCTOR IMPRESSION: No acute pulmonary process. Dictated by Leda Orourke MD (residential concierge). I, Dr. CORTES BUTLER have personally reviewed and interpreted this examination/study. This report was electronically signed by CORTES BUTLER ??on 10/23/2019 8:23 AM . Narrative 10/23/2019 8:23 AM TRAUMA DOCTOR EXAMINATION: XR CHEST 1VW HISTORY: M43.16: Spondylolisthesis at L4-L5 level M48.062: Spinal stenosis of lumbar region with neurogenic claudication M54.17: Lumbosacral radiculopathy at L5 COMPARISON: No prior study is available for comparison. FINDINGS: There is no focal consolidation, pleural effusion, or pneumothorax. The cardiomediastinal silhouette is normal. The visible bony thorax is intact. Procedure Note Cortes Butler DO - 10/23/2019 EXAMINATION: XR CHEST [...] pulmonary process. Dictated by Leda Orourke MD (residential concierge). Dr. CORTES Gordon have personally reviewed and interpreted this examination/study. This report was electronically signed by CORTES BUTLER on 10/23/2019 8:23 AM . Sammy Carrero MD DIAGNOSTIC IMAGING O RDERABLES documented in this encounter Visit Diagnoses Diagnosis Spondylolisthesis at L4-L5 level Spinal stenosis of lumbar region with neurogenic claudication Spinal stenosis, lumbar region, with neurogenic claudication Lumbosacral radiculopathy at L5 Thoracic or lumbosacral neuritis or radiculitis, unspecified documented in this encounter Care Teams Software Architect Relationship Specialty Start Date End Date Esperanza Ho MD [address] [place] [address] PCP - General 04/10/19 documented as of this encounter
--- OUTSIDE RECORDS SUMMARY | 2024-08-26 07:04 | XMS_ITS | Encounter Summary ---
Author Organization [facility] Address [address] [facility] [place] [address] Care Team Providers Care Electrical Prospecting Engineer Name Role Phone Esperanza Ho MD Primary Care Provider + Reason for Referral * Radiology Services (Routine) - Closed Specialty Diagnoses / Procedures Referred By Contac t Referred To Contact Radiology Diagnoses Spondylolisthesis at L4-L5 level Spinal stenosis of lumbar region with neurogenic claudication Procedures CT LUMBAR SPINE WO CONTRAST Sammy Carrero MD [address] [facility] [address] [place] [address] Referral ID Status Reason Start Date Expiration Date Visits Re quested Visits Authorized [id number] Closed 07/23/2019 01/19/2020 1 1 UTER SCIENTIST Encounter Details Date Type Department Care Team (Late st Contact Info) Description 07/23/2019 Orders Only [facility] - Orthopedics [address] [facility] [place] [address] Bernard Hayes RN [address] [place] [address] Spinal stenosis of lumbar region with neurogenic claudication ; Spondylolisthesis at L4-L5 level Social History Tobacco Use Types Packs/Day Years Used Date Smoking Tobacco: Never Smokeless Tobacco: Never Sex and Gender Information Value Date Recorded Sex Assigned at Not on file Gender Identity Not on file Sexual Orientation Not on file documented as of this encounter Plan of Treatment Scheduled Orders Name Type Priority Associated Diagnoses Orde r Schedule CT LUMBAR SPINE WO CONTRAST Imaging Routine Spondylolisthesis at L4-L5 level Spinal stenosis of lumbar region with neurogenic claudication 1 Occurrences starting 07/23/2019 until 07/23/2020 documented as of this encounter Visit Diagnoses Diagnosis Spinal stenosis of lumbar region with neurogenic claudication- Primary Spinal stenosis, lumbar region, with neurogenic claudication Spondylolisthesis at L4-L5 level documented in this encounter Care Teams Electrical Prospecting Engineer Relationship Specialty Start Date End Date Esperanza Ho MD [address] [place] [address] PCP - General 04/10/19 documented as of this encounter
--- OUTSIDE RECORDS SUMMARY | 2024-08-26 07:04 | XMS_ITS | Encounter Summary ---
Author Organization [facility] Address [address] [place] [address] Care Team Providers Care Wool Washer Name Role Phone Esperanza Ho MD Primary Care Provider + Reason for Visit * Auth/Cert Specialty Diagnoses / Procedures Referred By Amy amaro Referred To Contact Diagnoses Diagnosis unknown LUMBAR STENOSIS, LUMBAR SPONDYLOLISTHESIS, LUMBAR RADICULOPATHY Procedures FUSION ANTERIOR LUMBAR INTERBODY (ALIF) FUSION TRANSFORAMINAL LUMBAR INTERBODY (TLIF) Referral ID Status Reason Start Date Expiration Date Visits Re quested Visits Authorized [id number] 1 1 Encounter Details Date Type Department Care Team (Late st Contact Info) Description 11/01/2019 1:54 PM RFID ENGINEER - 11/12/2019 8:05 PM CDT Hospital Encounter [address] [address] Sammy Carrero MD [address] [facility] [address] [place] [address] Surgery Orthopedics Discharge Disposition: Home Health Care Svc Social History Tobacco Use Types Packs/Day Years [...] Sign Reading Time Taken Comments Blood Pressure 130/72 11/12/2019 4:24 PM CDT Pulse 88 11/12/2019 4:24 PM CDT Temperature 36.8 ??C (98.2 ??F) 11/12/2019 4:24 PM CD T Respiratory Rate 18 11/12/2019 4:24 PM CDT Oxygen Saturation 96% 11/12/2019 4:24 PM CDT Inhaled Oxygen Concentration - - Weight 94.3 kg (208 lb) 11/01/2019 2:24 PM RFID ENGINEER Height 167.6 cm (5' 6 ) 11/01/2019 2:24 PM RFID ENGINEER Body Mass Index 33.57 11/01/2019 2:24 PM RFID ENGINEER documented in this encounter Functional Status Functional [...] No 11/01/2019 documented as of this encounter Discharge Summaries * Meena Machado MD - 11/12/2019 8:19 AM CDT Physician Discharge Summary Patient Name: Saray Whitten Date of : 1960 Admit date: 11/01/2019 Discharge date: 11/12/2019 Admitting Physician: Sammy Carrero MD Attending Physician: Sammy Carrero MD Discharge Physician: Sammy Carrero MD Admission Diagnosis: Lumbar stenosis, Neurogenic claudication Past Medical History Past Medical History: Diagnosis Date ??? Sarcoidosis 1995 no problems ??? SOB (shortness of breath) limited walking due to back Resolved Diagnoses None found. Discharge Diagnoses Lumbosacral radiculopathy at L5 Red blood cell antibody positive Diagnostic Studies None Treatments See hospital course Procedures 11/02 L4-S1 ALIF, L4-S1 PISF by Dr. Carrero with assistance from Dr. Blackwood Consults Vascular Surgery Hospital Course The patient underwent the above mentioned elective procedure, which was without complication. Please see the details in the operative report for more information. Post-operatively, the patient was admitted to the floor. She was started on a clear liquid diet. She began to develop signs of ileus, and she was returned to NPO status. She did not require NG tube placement. Diet was slowly advanced asthe patient exhibited return of bowel function. Her surgical drain was removed on POD3. Prior to discharge, the patient was ambulating independently, voiding and stooling independently, and exhibitedadequate pain control. She was discharge to an acute rehab facility in good condition. Condition at discharge: good Disposition: Home Code Status At Discharge Full Code Patient Instructions Current Discharge Medication List START taking these medications Instructions Authorizing Provider oxyCODONE-acetaminophen 5-325 MG tablet Commonly known as: PERCOCET Quantity Dispensed: 42 tablet Take 2 tablets by mouth every 4 hours as needed Meena Machado MD senna-docusate 8.6-50 MG tablet Commonly known as: SENOKOT-S Quantity Dispensed: 30 tablet Take 1 tablet by mouth once daily Meena Machado MD CONTINUE taking these medications which have NOT CHANGED Instructions Authorizing Provider amitriptyline 25 MG tablet Commonly known as: ELAVIL Take 25 mg by mouth at bedtime DULoxetine 30 MG capsule Commonly known as: CYMBALTA Take 30 mg by mouth once daily Discharge Procedure Orders Why you were hospitalized Order Specific Question Answer Comments Your discharge diagnosis is: Lumbar stenosis with neurogenic claudication [[id number]] Follow up with Primary Care Provider (PCP) Our records show your Primary Care Provider (PCP) is Esperanza Ho MD. Order Specific Question Answer Comments Follow Up Instructions: Follow up as previously scheduled No special diet needed Resume your normal home diet as tolerated. Activity as tolerated Rest today, and increase activity level tomorrow as tolerated. Do not drive Until your follow up visit. No exercise or heavy activity Until your follow up visit. Special dressing instructions No dressings needed over incision. Do not soak incision. Showers only Until your follow up visit. Activity per Physical Therapy Follow the activity instructions given to you by the Physical Therapist. When to call your provider Call Dr. Carrero if you have questions or concerns, or for any of the following issues: -- temperature higher than 101 F -- if you cannot urinate for 6-8 hours after your surgery or if you become uncomfortable -- pain that gets worse or does not get better after taking your pain medication(s) as directed -- nausea or vomiting or cannot eat or drink -- bleeding from your incision or IV site -- if your incision or IV site looks infected (red, swollen, warm to the touch, or non-clear, foul-smelling drainage) Follow up with provider Order Specific Question Answer Comments Follow Up Instructions: Please call the number provided to schedule a follow up appointment with Dr. Carrero in 2 weeks. Follow up with provider Order Specific Question Answer Comments Follow Up Instructions: [facility] [phone], will call you before first visit Discharge time: less than 30 minutes. Meena Machado MD 11/10/2019 7:53 AM documented in this encounter Discharge Instructions * Discharge Instructions* Meena Machado MD - 11/09/2019 10:20 AM RFID ENGINEER Orthopedic Surgery Inpatient Discharge Instructions Disposition: senior care facility Diet: Resume home diet Wound care: It is okay to shower. You should not soak your incision. You do not need to keep dressings over your incision. Activity: No strenuous activity or heavy lifting until cleared by surgeon at follow-up. No driving while taking narcotic pain medications. Follow up: Follow-up Information Esperanza Ho MD . Specialty: Family Medicine Why: Follow up as previously scheduled Contact information: [address] [place] [phone] Sammy Carrero MD . Specialty: Orthopedic Surgery Why: Please call the number provided to schedule a follow up appointment with Dr. Carrero in 2 weeks. Contact information: [address] [place] [address] DEPT OF ORTHOPAEDICS [facility] [address] General Postsurgical Instructions You may expect to feel dizzy, weak, and drowsy for as long as 24 hours after receiving the medicinethat made you sleep (anesthetic). The following information pertains to your recovery period for the first 24 hours following surgery. ??? Do not drive a car, ride a bicycle, participate in physical activities, or take public transportation until you are done taking narcotic pain medicines or as directed by your caregiver. ??? Do not drink alcohol or take tranquilizers. ??? Do not take medicine that has not been prescribed by your caregiver. ??? Do not sign important papers or make important decisions while on narcotic pain medicines. ??? Have a responsible person with you. CARE OF INCISION ??? Change bandages (dressings) as directed. ??? Take showers instead of baths until your caregiver gives you permission to take baths. Check with your caregiver if you have tubes coming from the wound site. ??? Avoid heavy lifting (more than 10 pounds/4.5 kilograms), pushing, or pulling. ??? Avoid activities that may risk injury to your surgical site. ??? Only take giwe-gwu-dyvosof or prescription medicines for pain, discomfort, or fever as directedby your caregiver. SEEK MEDICAL CARE IF: ??? You feel sick to your stomach (nauseous). ??? You start to throw up (vomit). ??? You have trouble eating or drinking. ??? You have an oral temperature above 102?? F (38.9?? C). ??? You have constipation that is not helped by adjusting diet or increasing fluid intake. Pain medicines are a common cause of constipation. SEEK IMMEDIATE MEDICAL CARE IF: ??? You have persistent dizziness. ??? You have difficulty breathing. ??? You have an oral temperature above 102?? F (38.9?? C), not controlled by medicine. ??? There is increasing pain or tenderness near or in the surgical site. ENGINEER documented in this encounter Medications at Time of Discharge Medication Sig Dispensed Refills Start Date End Date amitriptyline (ELAVIL) 25 MG tablet Take 25 mg by mouth at bedtime DULoxetine (CYMBALTA) 30 MG capsule Take 30 mg by mouth once daily oxyCODONE-acetaminophen (PERCOCET) 5-325 MG tablet Take 2 tablets by mouth every 4 hours as needed 42 tablet 11/09/2019 11/16/2019 senna-docusate (SENOKOT-S) 8.6-50 MG tablet Take 1 tablet by mouth once daily 30 tablet 11/10/2019 11/23/2019 documented as of this encounter Progress Notes * Ivanna Wright RN - 11/12/2019 8:05 PM CDT Discharge To Home Discharge Date: 11/12/2019 Transportation at time of Discharge: private car Family Member who will transport: unknown Phone: pt to make calls Available time: when pt phones Medicaid Transport Arranged: na Ambulance Arranged: na Comments: pt to return home, sister at bedside. Sister to accompany pt and stay with pt for recovery to wellness. Another person to transport pt home. Pt able to obtain rx from local pharmacy. * Linh Valencia RN - 11/12/2019 6:08 PM CDT PIV removed. Patient states no belongings with security. Discharge paperwork and instructions and prescriptions given to patient. All questions answered at this time. Awaiting transportation. * Gayla Hernandez COTA - 11/12/2019 3:44 PM CDT [facility] Physical Medicine and Rehabilitation Occupational Therapy Progress Note Patient: Saray Whitten Med Record Number: [id number] Date of : 1960 Age: [age] year old Discharge Recommendation:??Patient should be able to return home when medically cleared by physician team. Therapy will continue to treat patient while in hospital. See current amount of assist needed below. ?? Frequency: Patient to be scheduled 7x/week until discharge from hospital or therapy goals Precautions: Spine Precautions: Log rolling;No bending,lifting, no twisting Subjective: I'm one foot out the door. Pt awaiting discharge. At start of therapy session, patient found in bed and with no alarm. Pain: Patient has 4 out of 10 pain in back. Nurse notified. Activities of Daily Living Feeding: Hand to mouth intact Grooming/Bathing: not tested previously completed Upper Extremity Dressing: not tested Lower Extremity Dressing: Pt reports she has good understanding of LB dressing equipment and without need for further education on socks aid or computer systems design analyst. Agreeable to demo of long handle shoe horn. After visual demo pt agrees she would benefit from having one upon discharge. Issued AE. Toileting/Transfers: not tested Mobility: Assist device: none Supine to/from Sit:Stand By Assist with v/c to use log roll Sit to/from Stand: Stand By Assist with steps to HOB Bed to/from Chair: not tested Balance: Static Sitting: good Dynamic Sitting: fair plus Static Standing: fair Dynamic Standing: fair Activity tolerance: fair minus Cognitive/Perceptual: A&Ox4 and to conversation. Follows 1 step directions 100%. Good safety and insight. Treatment/Therapeutic Exercise: Treatment session this date focused on ADL training Endurance training Bed mobility Energy conservation Safety awareness Patient/Family Teaching: Mobility, Self care, Spine Education, Home Safety and Patient voiced understanding of instructions given Equipment Issued: long handled shoehorn Update Treatment Plan/Goals : Patient continues to benefit from skilled OT to improve independence with activities of daily living, increase strength, endurance, range of motion, and decrease pain. Continue per POC Short Term Goals: Patient will perform lower extremity dressing?With mod assist - MET 11/10 Patient will perform supine to sit?With min assist??- MET 11/10 Patient will perform sit to stand?With min??assist and X 1 - MET 11/10 Patient will tolerate treatment?20 minutes, with fair endurance and with minimal pain Education:?good, safety education and spine precautions - MET 11/10 ?? Tobacco Conditioner Goal:Patient to discharge to appropriate next level of inpatient care If patient is discharged from the facility, this note serves as a discharge note if further occupational therapy visits did not occur. Following therapy session, patient left in bed, with call light within reach and with family in room. DIGNA Trivedi * Ivanna Wright RN - 11/12/2019 2:02 PM CDT Referral for home health and DME, Wheeled walker. Referral for wheeled walker given to [facility] onsite disability representative, Sushma Prince [phone]. I have made referral for home care to onsite intake disability representative, Rocio kirby [phone]. Await response. 1530 update.. Wheeled walker delivered to bedside per Sushma Gustafson For home use. Acceptance from [facility]. Confirmed with ortho spine that home health may see pt or Tuesday to open case. Ortho spine states they will see pt to determine discharge definitively. * Gayla Hernandez COTA - 11/12/2019 10:04 AM CDT [facility] Physical Medicine and Rehabilitation Occupational Therapy Patient Name Saray Whitten Date of 1960 Age [age] year old 11/12/19 1004 Missed Visit Missed Visit Other (Comment) Pt found working in gan with physical therapy at time of attempt. DIGNA Trivedi Occupational Therapist 11/12/2019 * Alberta Stafford, PT - 11/12/2019 9:55 AM CDT [facility] Physical Medicine and Rehabilitation PhysicalTherapy Progress Note Patient: Saray Whitten Med Record Number: [id number] Date of : 1960 Age: [age] year old Discharge Recommendation: Patient will benefit from home health PT. ? Frequency: Patient to be scheduled 7x/week while in hospital. Subjective: Pt in bed with sister present in room. Reports she is having some discomfort in her lower calf muscle; agrees to ambulate. Patient currently using Wheeled Walker and needs equipment if d/c home. Patient is 59 year old female s/p L4-S1 ALIF, PISF L4-S1 and will benefit from use of a wheeled walker to allow the patient to ambulate functional household distances (kitchen, bedroom, bathroom) in a reasonable time frame. Patient continues to be instructed in safety with the device and without the device would otherwise be unable to complete gait/mobility activities. Mental Status: Alert, oriented x4. 100% CF At start of therapy session, patient found in bed and with no alarm. Pain: Patient has 5 out of 10 pain in calf muscles B. Nurse notified. Weight Bearing Status: WBAT B LE Mobility: Rolling: Stand By Assist Supine to Sit:Stand By Assist Sit to Supine: Stand By Assist Sit to Stand:Stand By Assist Bed to Chair: not tested Gait: Device:Wheeled Walker Assistance: Stand By Assist Distance: 90ft Deviations: Pt demos slow lillie and overall limited tolerance to distance of ambulation. Limited this date due to discomfort in calf muscles. Able to demo upright posture with walker. Balance: Static Sitting: good Dynamic sitting: good Static Standing: good minus with WW Dynamic Standing: fair plus with WW Stairs : Pt completes 2 steps using one rail and SBS. Demos safe pace and technique. Vitals: (*Assess the 3 levels of oxygen saturations both for room air and 02 unless rest on room air is 88% or less). Rest BP: HR: Sp02 Sp02 Room Air L O2 Ex/Gait/Activity Without 02 BP: HR: Sp02 Room Air Ex/Gait/Activity With 02 BP: HR: Sp02 L O2 Post Activity BP: HR: Sp02 Sp02 L O2 Room Air Observations: Pt reports occasional dizziness when initially standing, then when completing stairs.Resolves quickly. Activity Tolerance: Patient's activity tolerance: good minus Treatment/therapeutic Exercise: Pt transfers out of bed and performs ambulation with WW. She completes stairs, then returns to her room to perform HEP including LAQ, APS, and calf stretch. In standing she performs small marches with WW. She returns to bed at end of session. Patient/Family Teaching: Exercise, Gait and Mobility Patient demonstrated Good understanding of instructions given. Short Term Goals: Goal Formation?With patient Patient will perform bed mobility:??Independent (updated) Patient will transfer sit to/from stand:??Independent (updated) Patient will transfer bed to/from chair:??Stand By Assist Patient will ambulate??125??feet with Minimal assist??and appropriate AD? Tobacco Conditioner Goal: Patient to be independent/baseline with functional mobility and be able to safely discharge to prior level of care. Update Treatment Plan: Continue with current PT plan of care to improve safety and functional mobility, especially focusing on increased distance of ambulation. If patient is discharged from the facility, this note serves as a discharge note if further physical therapy visits did not occur. Following therapy session, patient left in bed, with call light within reach, with family in room and with RNLinh. Alberta Stafford, PT 11/12/2019 * Sammy Carrero MD - 11/12/2019 6:32 AM CDT [facility] Orthopedic Spine Surgery Daily Progress Note Saray Whitten, 59 year old, female : 1960 CSN: [id number] Primary Care Physician: Esperanza Ho MD - Admission Date/Time: 11/01/2019 1:54 PM - Hospital Day: 11 Subjective Patient seen and examined this AM on rounds. No acute events overnight, pain controlled. Denies newnumbness/paresthesias. Continues to feel like she is getting better daily. She is excited at the prospect of going home Flatus/BM: BM Urinary status: voiding Vitals Temp (24hrs), Av.5 ??F (36.9 ??C), Min:98.1 ??F (36.7 ??C), Max:98.6 ??F (37 ??C) BP 139/80 Pulse 90 Temp 98.6 ??F (37 ??C) (Oral) Resp 18 Ht 1.676 m (5' 6 ) Wt 94.3 kg (208 lb) SpO2 97% BMI 33.57 kg/m2 Labs Recent Labs Component Name 11/12/19 0256 11/11/19 1123 11/10/19 0249 WBC 7.0 6.9 7.8 HGB 8.1* 8.7* 8.1* HCT 27.0* 28.5* 26.6* PLTCOUNT [phone] Recent Labs Component Name 10/22/19 1209 INR 1.0 Cultures Microbiology Results (Displays last 21 days for this encounter ONLY) Procedure Component Value - Date/Time CULTURE URINE [[id number]] Collected: 10/22/191208 Lab Status: Final result Specimen: Urine Clean Catch Updated: 10/24/19357 Culture Urine 10,000-50,000 CFU/mL urogenital dylon Physical Exam General: Awake, cooperative, in no acute distress. Back: -Wounds: dressing clean, dry, and intact -Tenderness to palpation: absent - ROM: not assessed Bilateral Upper Extremity: - Motor: Intact to bilateral extremities, uses bilateral extremities to move around in bed - Sensory: intact to light touch in C5-T1 distribution Bilateral Lower Extremity: - Motor: intact to bilateral extremities, moves extremities spontaneously, uses extremities to moveself around in bed - Sensation: intact to light touch distally in L1-S1 distribution Assessment/Plan Patient is a 59 year old, female s/p L4-S1 ALIF, PISF L4-S1 by Dr. Carrero on 11/02/19 1. Activity: up as tolerated 2. Current Dispo: plan for d/c home today with home health PT 3. Anticoagulation Status: Eliquis 4. Diet: regular 5. Continue bowel regimen 6. PT/OT 7. Pain Control 8. Please page Ortho Spine with any additional questions or concerns. Meena Machado MD 11/12/2019 6:33 AM Attending Physician Supervisory Note I personally interviewed and examined the patient and agree with the doctor above. Sammy Carrero MD * Jossie Eric - 11/11/2019 5:11 PM CDT Problem: Low Fall Risk (Score 7-10) Goal: Patient will remain as independent as possible. Outcome: Ongoing Problem: Balance Goal: LTG - Patient will maintain standing and sitting balance to allow for completion of daily activities Outcome: Ongoing * Yael Kelly COTA - 11/11/2019 12:40 PM CDT [facility] Physical Medicine and Rehabilitation Occupational Therapy Progress Note Patient: Saray Whitten Med Record Number: [id number] Date of : 1960 Age: [age] year old Spoke with PT, patient about returning home, team on board. Discharge Recommendation: Patient should be able to return home when medically cleared by physicianteam. Therapy will continue to treat patient while in hospital. See current amount of assist neededbelow. Frequency: Patient to be scheduled 7x/week until discharge from hospital or therapy goals achieved. Precautions: Spine Precautions: Log rolling;No bending,lifting, no twisting Subjective: I did good on the stairs with PT At start of therapy session, patient found in bed and family in room. Pain: Patient has 2 out of 10 pain in back. Nurse aware. Activities of Daily Living Grooming/Bathing: SBA for oral/facial care standing at the sink. Lower Extremity Dressing: Stand By Assist doff socks with computer systems design analyst, don socks with sock aid, and don/doff pants with computer systems design analyst, extra time, no teaching needed for AE, good follow thru from yesterday. Mobility: Assist device: Wheeled Walker Supine to/from Sit:Stand By Assist log rolling Sit to/from Stand: Stand By Assist Functional Mobility - SBA with WW to bathroom. Balance: Static Sitting: good Dynamic Sitting: fair plus Static Standing: fair plus with WW Dynamic Standing: fair with WW Vitals: Rest BP: HR: SpO2 SpO2 Room Air L 02 Ex/Gait/Activity Without 02 BP: HR: SpO2 Room Air Ex/Gait/Activity With 02 BP: HR: SpO2 L 02 Post Activity BP: HR: SpO2 SpO2 L 02 Room Air Observations: NAD Activity tolerance: fair plus Cognitive/Perceptual: A&O x's 4. Pt is alert, cooperative and appropriate for therapy. Pt is pleasant, and follows all simple directives with AE training/exercises with band. Fair (+) safety awareness, insight into deficit, attention to task, and with spine precautions. Treatment/Therapeutic Exercise: Treatment session this date focused on ADL training Adaptive equipment training Functional transfer training Endurance training Bed mobility Energy conservation Safety awareness. Patient/Family Teaching: Mobility, Self care and Patient voiced understanding of instructions given Equipment Issued: LHS, computer systems design analyst, sock aid. Update Treatment Plan/Goals : Patient will benefit from continued skilled OT services to increase strength/endurance/activity tolerance, decrease pain when indicated, and increase safety/independencewith ADL and functional transfers/mobility. Continue goals per POC. Short Term Goals: Patient will perform lower extremity dressing?With mod assist - MET 11/10 Patient will perform supine to sit?With min assist??- MET 11/10 Patient will perform sit to stand?With min??assist and X 1 - MET 11/10 Patient will tolerate treatment?20 minutes, with fair endurance and with minimal pain Education:?good, safety education and spine precautions - MET 11/10 ?? Tobacco Conditioner Goal:Patient to discharge to appropriate next level of inpatient care ?? If patient is discharged from the facility, this note serves as a discharge note if further occupational therapy visits did not occur. Following therapy session, patient left in bed, with call light within reach, with family in room and with RN/CP rehab cues written on white board. DIGNA Hewitt * Quique Gomez II, PT - 11/11/2019 9:30 AM CDT [facility] Physical Medicine and Rehabilitation PhysicalTherapy Progress Note Patient: Saray Whitten Med Record Number: [id number] Date of : 1960 Age: [age] year old Discharge Recommendation: Patient will benefit from home health PT. Frequency: Patient to be scheduled 7x/week while in hospital. Subjective: Patient agreeable to physical therapy treatment. Patient currently using Wheeled Walker and needs equipment if d/c home. Patient is 59 year old female s/p L4-S1 ALIF, PISF L4-S1 and will benefit from use of a wheeled walker to allow the patient to ambulate functional household distances (kitchen, bedroom, bathroom) in a reasonable time frame. Patient continues to be instructed in safety with the device and without the device would otherwise be unable to complete gait/mobility activities. Mental Status: Alert and oriented to conversation. Able to follow 100% of commands. At start of therapy session, patient found in bed and with no alarm. Pain: Patient has 8 out of 10 pain in back. Nurse notified. Weight Bearing Status: WBAT BLE Mobility: Rolling: Stand By Assist Supine to Sit:Stand By Assist. Patient required cueing for log rolling technique. Sit to Supine: not tested Sit to Stand:Stand By Assist from bed, from chair, and from commode Bed to Chair: not tested Gait: Device:Wheeled Walker Assistance: Stand By Assist Distance: 60 feet for two reps and 20 feet for two reps Deviations: Patient with decreased gait speed, decreased stride length, forward head rounded shoulders posture with ambulation. Balance: Static Sitting: good Dynamic sitting: good Static Standing: fair plus with wheeled walker Dynamic Standing: fair with wheeled walker Stairs : Patient able to ascend and descend two steps with two HRA with SBA for two reps Vitals: (*Assess the 3 levels of oxygen saturations both for room air and 02 unless rest on room air is 88% or less). Rest BP: HR: Sp02 Sp02 Room Air L O2 Ex/Gait/Activity Without 02 BP: HR: Sp02 Room Air Ex/Gait/Activity With 02 BP: HR: Sp02 L O2 Post Activity BP: HR: Sp02 Sp02 L O2 Room Air Observations: Patient reported intermittent lightheadedness upon sitting/standing that resolved within 30 seconds. Activity Tolerance: Patient's activity tolerance: good Treatment/therapeutic Exercise: Training for bed mobility, transfers, and ambulation. Patient completed 10 reps bilaterally for each of the following: seated LAQ, seated ankle pumps, seated marches, and standing heel raises. Patient completed 20 reps of seated bilateral scapular retractions. Patient/Family Teaching: Exercise, Gait, Mobility, Home Safety, stair training and Patient voiced understanding of instructions given Patient demonstrated Good understanding of instructions given. Short Term Goals: Goal Formation?With patient Patient will perform bed mobility:??Independent (updated) Patient will transfer sit to/from stand:??Independent (updated) Patient will transfer bed to/from chair:??Stand By Assist Patient will ambulate??125??feet with Minimal assist??and appropriate AD Alf Goal: Patient to be independent/baseline with functional mobility and be able to safely discharge to prior level of care. Update Treatment Plan: Continue per current PT POC with updated goals If patient is discharged from the facility, this note serves as a discharge note if further physical therapy visits did not occur. Following therapy session, patient left in patient bedside chair, with call light within reach, with family in room and with RN, Jossie mendoza. Quique Gomez II, PT 11/11/2019 * Nury Gray MD - 11/11/2019 6:17 AM CDT [facility] Orthopedic Spine Surgery Daily Progress Note Saray Whitten, 59 year old, female : 1960 CSN: [id number] Primary Care Physician: Esperanza Ho MD - Admission Date/Time: 11/01/2019 1:54 PM - Hospital Day: 10 Subjective Patient seen and examined this AM on rounds. No acute events overnight, pain controlled. Denies newnumbness/paresthesias. Working with therapy Flatus/BM: + Urinary status: voiding Vitals Temp (24hrs), Av.6 ??F (37 ??C), Min:98.1 ??F (36.7 ??C), Max:99.2 ??F (37.3 ??C) BP 124/66 Pulse 87 Temp 98.6 ??F (37 ??C) (Oral) Resp 16 Ht 5' 6 (1.676 m) Wt 208 lb (94.3 kg) SpO2 100% BMI 33.57 kg/m2 Labs Recent Labs Component Name 11/10/19 02411/09/19 0248 11/08/19248 WBC 7.8 7.3 6.5 HGB 8.1* 8.1* 8.4* HCT 26.6* 25.5* 26.8* PLTCOUNT 289 [id number] 253 Recent Labs Component Name 10/22/19 120 INR 1.0 Cultures Microbiology Results (Displays last 21 days for this encounter ONLY) Procedure Component Value - Date/Time CULTURE URINE [[id number]] Collected: 10/22/191208 Lab Status: Final result Specimen: Urine Clean Catch Updated: 10/24/19357 Culture Urine 10,000-50,000 CFU/mL urogenital dylon Physical Exam General: Awake, cooperative, in no acute distress. Back: -Wounds: Dressing in place with min saturation Bilateral Upper Extremity: - Motor: Grossly intact hand and elbow motion - Sensory: intact to light touch in C5-T1 distribution Bilateral Lower Extremity: - Motor: Hip Flexion L 4/5, R5/5 Knee Flexion 5/5 Knee Extension 5/5 Ankle Dorsiflexion 5/5 Great Toe Extension 5/5 Ankle Plantarflexion 5/5 - Sensation: intact to light touch distally in L1-S1 distribution Assessment/Plan Patient is a 59 year old, female s/p L4-S1 ALIF, PISF L4-S1 by Dr. Carrero on 11/02/19 ?? 1. Activity: up as tolerated 2. Awaiting insurance authorization for discharge to rehab facility, possibly today 3. Possible d/c home with HH 4. Anticoagulation Status: Eliquis 5. Diet: regular 6. Continue bowel regimen 7. PT/OT 8. Pain Control 9. Please page Ortho Spine with any additional questions or concerns. Nury Gray MD 11/11/2019 6:17 AM * Quique Gomez II, PT - 11/10/2019 1:17 PM CST [facility] Department of Physical Medicine & Rehabilitation Progress Note Patient: Saray Teague [facility] Record Number: [id number] Date of : 1960 Age: [age] year old 11/10/19 1317 Missed Visit Missed Visit Refused Patient refused therapy intervention due to Other (Comment) (Eating Lunch) Patient currently eating lunch. Patient wishes to eat lunch at this time. Patient reports working with OT recently. PT will attempt to see patient again tomorrow. Quique Gomez II PT 11/10/2019 2:22 PM ENGINEER * Yael Kelly COTA - 11/10/2019 1:05 PM CST [facility] Physical Medicine and Rehabilitation Occupational Therapy Progress Note Patient: Saray Teague [facility] Record Number: [id number] Date of : 1960 Age: [age] year old Discharge Recommendation: Patient will benefit from intense 3 hour per day multidisciplinary inpatient therapies due to currently requiring increased assist to complete mobility and ADLs post spinal surgery. Prior to admission, pt independent with ADLs/mobility. ?? Frequency: Patient will be scheduled 7x/week while in hospital. ?? Precautions: Spine Precautions: Log rolling;No bending,lifting, no twisting Subjective: I sat up for about 2 hours this morning. At start of therapy session, patient found in bed and family in room. Pain: Patient has 4 out of 10 pain in back. Nurse aware. Activities of Daily Living Lower Extremity Dressing: Stand By Assist doff socks with computer systems design analyst, don socks with sock aid, and don/doff underwear/pants with computer systems design analyst, extra time, and education provided t opt for AE training. Mobility: Assist device: Wheeled Walker Supine to/from Sit:Stand By Assist log rolling Sit to/from Stand: Stand By Assist Bed to/from Chair: not tested Balance: Static Sitting: good Dynamic Sitting: fair plus Static Standing: fair plus with WW Dynamic Standing: fair with WW Vitals: Rest BP: HR: SpO2 SpO2 Room Air L 02 Ex/Gait/Activity Without 02 BP: HR: SpO2 Room Air Ex/Gait/Activity With 02 BP: HR: SpO2 L 02 Post Activity BP: HR: SpO2 SpO2 L 02 Room Air Observations: NAD Activity tolerance: fair plus Cognitive/Perceptual: A&O x's 4. Pt is alert, cooperative and appropriate for therapy. Pt is pleasant, and follows all simple directives with AE training/exercises with band. Fair (+) safety awareness, insight into deficit, attention to task, and with spine precautions. Treatment/Therapeutic Exercise: Treatment session this date focused on ADL training Adaptive equipment training Endurance training Bed mobility Energy conservation Safetyawareness HEP training. Red theraband for 2 sets of 10, 4 exercises, good follow thru with form. Patient/Family Teaching: Exercise, Self care and Patient voiced understanding of instructions given Equipment Issued: theraband Update Treatment Plan/Goals : Patient will benefit from continued skilled OT services to increase strength/endurance/activity tolerance, decrease pain when indicated, and increase safety/independencewith ADL and functional transfers/mobility. Continue goals per POC. Short Term Goals: Patient will perform lower extremity dressing?With mod assist Patient will perform supine to sit?With min assist?? Patient will perform sit to stand?With min??assist and X 1 Patient will tolerate treatment?20 minutes, with fair endurance and with minimal pain Education:?good, safety education and spine precautions ?? Alf Goal:Patient to discharge to appropriate next level of inpatient care ?? If patient is discharged from the facility, this note serves as a discharge note if further occupational therapy visits did not occur. Following therapy session, patient left in bed, with call light within reach, with family in room and with RN/CP rehab cues written on white board. DIGNA Hewitt ENGINEER * Jossie Eric - 11/10/2019 10:25 AM CST Problem: Low Fall Risk (Score 7-10) Goal: Patient will remain as independent as possible. Outcome: Ongoing Problem: Skin Integrity Goal: Skin integrity is maintained or improved Outcome: Ongoing Problem: Daily Care Goal: Daily care needs are met Outcome: Ongoing Problem: Fall Risk Goal: Fall risk and fall related injury risk are minimized Outcome: Ongoing ENGINEER * Sammy Carrero MD - 11/10/2019 7:16 AM CST [facility] Orthopedic Spine Surgery Daily Progress Note Saray Whitten, 59 year old, female : 1960 CSN: [id number] Primary Care Physician: Esperanza Ho MD - Admission Date/Time: 11/01/2019 1:54 PM - Hospital Day: 9 Subjective Patient seen and examined this AM on rounds. No acute events overnight, pain controlled. Denies newnumbness/paresthesias. Patient states she had a good day yesterday and is feeling better daily. Flatus/BM: BM Urinary status: voiding Vitals Temp (24hrs), Av.4 ??F (36.9 ??C), Min:98.2 ??F (36.8 ??C), Max:98.6 ??F (37 ??C) BP 126/78 Pulse 89 Temp 98.2 ??F (36.8 ??C) (Oral) Resp 16 Ht 1.676 m (5' 6 ) Wt 94.3 kg (208 lb) SpO2 98% BMI 33.57 kg/m2 Labs Recent Labs Component Name 11/10/19 0249 11/09/19 0248 11/08/19 0249 WBC 7.8 7.3 6.5 HGB 8.1* 8.1* 8.4* HCT 26.6* 25.5* 26.8* PLTCOUNT 289 268 253 Recent Labs Component Name 10/22/19 1209 INR 1.0 Cultures Microbiology Results (Displays last 21 days for this encounter ONLY) Procedure Component Value - Date/Time CULTURE URINE [[id number]] Collected: 10/22/19 1209 Lab Status: Final result Specimen: Urine Clean Catch Updated: 10/24/19 8637 Culture Urine 10,000-50,000 CFU/mL urogenital dylon Physical Exam General: Awake, cooperative, in no acute distress. Back: -Wounds: dressings intact without saturation -Tenderness to palpation: absent - ROM: not assessed Bilateral Upper Extremity: - Motor: function grossly intact to bilateral upper extremities, Uses bilateral extremities to zofia bed - Sensory: intact to light touch in C5-T1 distribution Bilateral Lower Extremity: - Motor: bilateral motor function grossly intact, Uses bilateral extremities to help roll in bed for back inspection - Sensation: intact to light touch distally in L1-S1 distribution Assessment/Plan Patient is a 59 year old, female s/p L4-S1 ALIF, PISF L4-S1 by Dr. Carrero on 11/02/19 1. Activity: up as tolerated 2. Awaiting insurance authorization for discharge to rehab facility, possibly today 3. Anticoagulation Status: Eliquis 4. Diet: regular 5. Continue bowel regimen 6. PT/OT 7. Pain Control 8. Please page Ortho Spine with any additional questions or concerns. Meena Machado MD 11/10/2019 7:17 AM Attending Physician Supervisory Note I personally interviewed and examined the patient and agree with the doctor above. Patient is increasingly able to get of bed and get to the bathroom without assistance. May be appropriate for discharge to home by Tuesday. Sammy Carrero MD ENGINEER * Ivanna Wright RN - 11/09/2019 5:02 PM CST Case management follow for discharge . Await authorization to be obtained by [facility]. auth request has been submitted per Beena [phone], disability representative [facility]. ENGINEER * Jossie Eric - 11/09/2019 12:47 PM CST Problem: Low Fall Risk (Score 7-10) Goal: Patient will remain as independent as possible. Outcome: Ongoing Problem: Balance Goal: LTG - Patient will maintain standing and sitting balance to allow for completion of daily activities Outcome: Ongoing Problem: Skin Integrity Goal: Skin integrity is maintained or improved Outcome: Ongoing Problem: Daily Care Goal: Daily care needs are met Outcome: Ongoing ENGINEER * Nella Mccord OT - 11/09/2019 11:45 AM CST [facility] Physical Medicine and Rehabilitation Occupational Therapy Progress Note Patient: Saray Whitten Med Record Number: [id number] Date of : 1960 Age: [age] year old Discharge Recommendation: Patient will benefit from intense 3 hour per day multidisciplinary inpatient therapies due to currently requiring increased assist to complete mobility and ADLs post spinal surgery. Prior to admission, pt independent with ADLs/mobility. Frequency: Patient will be scheduled 7x/week while in hospital. Precautions: Spine Precautions: Log rolling;No bending,lifting, no twisting Subjective: I'm having quite a bit of pain in my back and abdomen but I can try to work. At start of therapy session, patient found in bed and with no alarm. Pain: Patient has 8 out of 10 pain in low back and abdomen. Nurse (Jossie) notified and aware of pt's status. Activities of Daily Living Feeding:NT Grooming/Bathing: not tested Upper Extremity Dressing: not tested Lower Extremity Dressing: Minimal assist to don/doff socks while sitting EOB using sock-aide and computer systems design analyst. Toileting/Transfers: not tested. Mobility: Assist device: none Supine to/from Sit:Minimal assist for trunk elevation. Minimal tactile and verbal cues for proper technique in log roll to maintain spinal precautions. Sit to/from Stand: not tested Bed to/from Chair: not tested Functional Mobility: not tested. Pt declined OOB activity due to recently getting up and moving with PT. Splint Issued/Checked: none Splint Check Completed: N/A Balance: Static Sitting: fair plus Dynamic Sitting: fair Static Standing: not tested Dynamic Standing: not tested Observations: Pt reported feeling lightheaded after initially sitting up EOB and was educated on PLB. Pt demonstrated and verbalized understanding to technique and reported cessation of symptoms. Activity tolerance: fair. Pt fatigued easily during seated EOB tasks and required use of PLB to maintain good O2 consumption. Cognitive/Perceptual: Alert and oriented x 4, follows multi step commands 100%, good safety awareness. Pt able to recall 2/3 of spinal precautions at beginning of session and demonstrated good understanding throughout all activities and mobility. Treatment/Therapeutic Exercise: Treatment session this date focused on ADL training Bed mobility Safety awareness Patient/Family Teaching: Mobility and Self care Equipment Issued: none. Pt educated on long-handled bath sponge, computer systems design analyst and sock-aide. Patient instructed in and demonstrated understanding of equipment, however, required min A and min VC/tactile cues for success. Will continue to address in future sessions. Update Treatment Plan/Goals : Pt continues to benefit from skilled OT to improve independence with activities of daily living, increase strength, endurance, range of motion and decrease pain. Continue goals per POC. Short Term Goals: Patient will perform lower extremity dressing?With mod assist Patient will perform supine to sit?With min assist?? Patient will perform sit to stand?With min??assist and X 1 Patient will tolerate treatment?20 minutes, with fair endurance and with minimal pain Education:?good, safety education and spine precautions Tobacco Conditioner Goal:Patient to discharge to appropriate next level of inpatient care If patient is discharged from the facility, this note serves as a discharge note if further occupational therapy visits did not occur. Following therapy session, patient left in bed, with call light within reach, with RNJossie aware and with RN/CP rehab cues written on white board. Nella Mccord OT ENGINEER * Naomi Sierra LCSW - 11/09/2019 11:15 AM CST GABRIELE contacted Beena, liaison with [facility], to inquire about insurance authorization. Beena stated she would contact this once auth was obtained. Naomi Sierra LCSW 11/09/2019 8:41 PM [phone] ENGINEER * Quique Gomez II, PT - 11/09/2019 9:30 AM CST [facility] Physical Medicine and Rehabilitation PhysicalTherapy Progress Note Patient: Saray Whitten Med Record Number: [id number] Date of : 1960 Age: [age] year old Discharge Recommendation: Patient will benefit from intense 3 hour per day multidisciplinary inpatient therapies due to??decreased mobility post spinal surgery. Frequency: Patient to be scheduled 7x/week while in hospital. Subjective: Patient agreeable to physical therapy treatment. Patient currently using Wheeled Walker and needs equipment if d/c home. Mental Status: Alert and oriented x 4. Patient able to follow 100% of commands. At start of therapy session, patient found in patient bedside chair. Pain: Patient has 9 out of 10 pain in back/abdomen. Nurse notified. Weight Bearing Status: WBAT BLE Mobility: Rolling: Minimal assist of 1 Supine to Sit:not tested Sit to Supine: Minimal assist of 1 for help with BLE Sit to Stand:Minimal assist of 1 from chair Bed to Chair: not tested Gait: Device:Wheeled Walker Assistance: Minimal assist of 1 Distance: 25 feet x 2 reps with standing rest break Deviations: Patient with decreased gait speed, decreased stride length, decreased lillie, and minimally flexed posture with ambulation. Balance: Static Sitting: good minus Dynamic sitting: good minus Static Standing: fair Dynamic Standing: fair minus Stairs : Not tested due to decreased endurance. Vitals: (*Assess the 3 levels of oxygen saturations both for room air and 02 unless rest on room air is 88% or less). Rest BP: HR: Sp02 Sp02 Room Air L O2 Ex/Gait/Activity Without 02 BP: HR: Sp02 Room Air Ex/Gait/Activity With 02 BP: HR: Sp02 L O2 Post Activity BP: HR: Sp02 Sp02 L O2 Room Air Observations: Patient reports no lightheadedness or dizziness in any position and showed no signs of distress. Activity Tolerance: Patient's activity tolerance: good minus Treatment/therapeutic Exercise: Training for bed mobility, transfers, and ambulation. Patient completed 10-15 reps bilaterally for each of the following exercises: seated ankle pumps, seated LAQ, seated marches, supine hip abd, supine quad sets, and supine ankle pumps. Patient/Family Teaching: Exercise, Gait and Mobility Patient demonstrated Good understanding of instructions given. Short Term Goals: Goal Formation?With patient Patient will perform bed mobility:??Stand By Assist Patient will transfer sit to/from stand:??Stand By Assist Patient will transfer bed to/from chair:??Stand By Assist Patient will ambulate??125??feet with Minimal assist??and appropriate AD Tobacco Conditioner Goal: Patient to discharge to appropriate next level of inpatient care. Update Treatment Plan: Continue per current PT POC If patient is discharged from the facility, this note serves as a discharge note if further physical therapy visits did not occur. Following therapy session, patient left in bed, with bed alarm on, with call light within reach, with family in room, with RNJossie aware and with RN/CP rehab cues written on white board. Quique Gomez II, PT 11/09/2019 ENGINEER * Sammy Carrero MD - 11/09/2019 6:06 AM CST [facility] Orthopedic Spine Surgery Daily Progress Note Saray Whitten, 59 year old, female : 1960 CSN: [id number] Primary Care Physician: Esperanza Ho MD - Admission Date/Time: 11/01/2019 1:54 PM - Hospital Day: 8 Subjective Patient seen and examined this AM on rounds. No acute events overnight, pain controlled. Denies newnumbness/paresthesias. Worked with PT yesterday. Pt in good spirits today. Flatus/BM: yes Urinary status: voiding Vitals Temp (24hrs), Av.5 ??F (36.9 ??C), Min:97.9 ??F (36.6 ??C), Max:98.9 ??F (37.2 ??C) BP 131/77 Pulse 95 Temp 98.5 ??F (36.9 ??C) (Oral) Resp 16 Ht 5' 6 (1.676 m) Wt 208 lb (94.3 kg) SpO2 100% BMI 33.57 kg/m2 Labs Recent Labs Component Name 11/09/19 0248 11/08/19 0249 11/07/19 0259 WBC 7.3 6.5 6.7 HGB 8.1* 8.4* 8.7* HCT 25.5* 26.8* 27.5* PLTCOUNT 268 253 233 Recent Labs Component Name 10/22/19 1209 INR 1.0 Cultures Microbiology Results (Displays last 21 days for this encounter ONLY) Procedure Component Value - Date/Time CULTURE URINE [[id number]] Collected: 10/22/19 1209 Lab Status: Final result Specimen: Urine Clean Catch Updated: 10/24/19357 Culture Urine 10,000-50,000 CFU/mL urogenital dylon Physical Exam General: Awake, cooperative, in no acute distress. Back: - Dressing in place with some mild saturation distally -Tenderness to palpation: present Bilateral Lower Extremity: - Motor: Hip Flexion R 5/5, L 3/5 Knee Flexion 5/5 Knee Extension 5/5 Ankle Dorsiflexion 5/5 Great Toe Extension 5/5 Ankle Plantarflexion 5/5 - Sensation: intact to light touch distally in L1-S1 distribution Assessment/Plan Patient is a 59 year old, female s/p L4-S1 ALIF, PISF L4-S1 by Dr. Carrero on 11/02/19 ?? 1. Activity: up as tolerated 2. Begin working on rehab placement 3. Anticoagulation Status: Eliquis 4. Diet: regular 5. Continue bowel regimen 6. PT/OT 7. Pain Control with PO medications, IV for breakthrough 8. Dispo: Ready for d/c. Placement pending insurance authorization 9. Please page Ortho Spine with any questions or concerns. Nury Gray MD 11/09/2019 6:08 AM Attending Physician Supervisory Note I personally interviewed and examined the patient and agree with the doctor above. Sammy Carrero MD ENGINEER * Marianne Covarrubias RN - 11/08/2019 1:25 PM CST [facility] Rehab following. Per Social Work notes, patient prefers [facility] due to location. Will sign-off. Please re-refer if appropriate. Thank you for the referral, Marianne Covarrubias RN MSN (covering for Sabina Harrington RN BSN) Clinical Liaison [facility] [phone] ENGINEER * Eliza Hernandes Cira, PT - 11/08/2019 12:00 PM CST [facility] Physical Medicine and Rehabilitation PhysicalTherapy Progress Note Patient: Saray Whitten Med Record Number: [id number] Date of : 1960 Age: [age] year old Discharge Recommendation: Patient will benefit from intense 3 hour per day multidisciplinary inpatient therapies due to decreased mobility post spinal surgery. Frequency: Patient will be scheduled 6x/week while in hospital. Subjective: Patient reports that she sat up for an hour in the chair Patient currently using Wheeled Walker and needs equipment if d/c home. Mental Status: A & O x 3; flat affect At start of therapy session, patient found in patient bedside chair and with no alarm. Pain: Patient has 9 out of 10 pain in her back. Nurse notified. Weight Bearing Status: WBAT Mobility: Rolling: not tested Supine to Sit:not tested Sit to Supine: Moderate assist Sit to Stand:Moderate assist Bed to Chair: Moderate assist Gait: Device:Wheeled Walker Assistance: Minimal assist Distance: 25 feet Deviations: slow, short, shuffling steps Balance: Static Sitting: good Dynamic sitting: good Static Standing: fair plus Dynamic Standing: fair Vitals: (*Assess the 3 levels of oxygen saturations both for room air and 02 unless rest on room air is 88% or less). Rest BP: HR: Sp02 Sp02 Room Air L O2 Ex/Gait/Activity Without 02 BP: HR: Sp02 Room Air Ex/Gait/Activity With 02 BP: HR: Sp02 L O2 Post Activity BP: HR: Sp02 Sp02 L O2 Room Air Observations: not taken; no reports of SOB; patient mildly dizzy on standing but resolved quickly Activity Tolerance: Patient's activity tolerance: fair Treatment/therapeutic Exercise: transfer and gait training; patient instructed in quad sets, ankle pumps and quad squeezes Patient/Family Teaching: Exercise, Gait and Mobility Patient demonstrated Good understanding of instructions given. Short Term Goals: Goal Formation?With patient Patient will perform bed mobility:??Stand By Assist Patient will transfer sit to/from stand:??Stand By Assist Patient will transfer bed to/from chair:??Stand By Assist Patient will ambulate??125??feet with Minimal assist??and appropriate AD ?? Alf Goal(s): Patient to discharge to appropriate next level of inpatient care Update Treatment Plan: Continue per POC If patient is discharged from the facility, this note serves as a discharge note if further physical therapy visits did not occur. Following therapy session, patient left in bed, with call light within reach and with family in room. Eliza Hernandes, PT 11/08/2019 ENGINEER * Nella Mccord, OT - 11/08/2019 9:37 AM CST [facility] Occupational Therapy Progress Note Patient: Saray Whitten Med Record Number: [id number] Date of : 1960 Age: [age] year old Discharge Recommendation: Patient will benefit from intense 3 hour per day multidisciplinary inpatient therapies due to currently requiring increased assist to complete mobility and ADLs post spinal surgery. Prior to admission, pt independent with ADLs/mobility. Frequency: Patient will be scheduled 7x/week while in hospital. Precautions: Spine Precautions: Log rolling;No bending,lifting, no twisting Subjective: I can try. At start of therapy session, patient found in bed. Pain: Patient has 9 out of 10 pain in back. Reports recently receiving pain medication. Activities of Daily Living Feeding: NT Grooming/Bathing: Stand By Assist complete oral hygiene seated at sink with assist for set-up, SBA hand hygiene Upper Extremity Dressing: Minimal assist don robe seated EOB Lower Extremity Dressing: not tested Toileting/Transfers: Minimal assist transfer on/off bedside commode in bathroom, moderate assist clothing management Mobility: Assist device: Wheeled Walker Supine to/from Sit:Minimal assist Sit to/from Stand: Minimal assist with verbal cues for hand placement Bed to/from Chair: Minimal assist Functional Mobility: From bed to bathroom sink with Minimal assist Splint Issued/Checked: none Splint Check Completed: N/A Balance: Static Sitting: fair plus Dynamic Sitting: fair Static Standing: fair with device Dynamic Standing: fair with device Vitals: Rest BP: HR: SpO2 SpO2 Room Air L 02 Ex/Gait/Activity Without 02 BP: HR: SpO2 Room Air Ex/Gait/Activity With 02 BP: HR: SpO2 L 02 Post Activity BP: HR: SpO2 SpO2 L 02 Room Air Observations: Min c/o dizziness post mobility Activity tolerance: fair Cognitive/Perceptual: Alert and oriented x 4, follows multi step commands 100%, good safety awareness. Treatment/Therapeutic Exercise: Treatment session this date focused on ADL training Functional transfer training Endurance training Bed mobility Safety awareness Patient/Family Teaching: Mobility, Self care and Spine Education Equipment Issued: none Update Treatment Plan/Goals : Pt continues to benefit from skilled OT to improve independence with activities of daily living, increase strength, endurance, range of motion and decrease pain. Continue goals per POC. Short Term Goals: Patient will perform lower extremity dressing?With mod assist Patient will perform supine to sit?With min assist Patient will perform sit to stand?With min??assist and X 1 Patient will tolerate treatment?20 minutes, with fair endurance and with minimal pain Education:?good, safety education and spine precautions Tobacco Conditioner Goal:Patient to discharge to appropriate next level of inpatient care If patient is discharged from the facility, this note serves as a discharge note if further occupational therapy visits did not occur. Following therapy session, patient left in patient bedside chair, with call light within reach, with family in room, with Mary Kate ALVARENGA aware and with RN/CP rehab cues written on white board. Nella Mccord OT ENGINEER * Ketty Hartman LCSW - 11/08/2019 9:11 AM CST Beena ([phone]) of [facility] reported pt's acceptance. She will initiate insurance authorization and visit with pt this afternoon. ?? JEANNE Fletcher, MEIR PRN Radiologic Technician [phone] ENGINEER * Mary Kate Moody RN - 11/08/2019 8:12 AM CST Problem: Low Fall Risk (Score 7-10) Goal: Patient will have lower fall risk. Outcome: Ongoing Goal: Patient will have lower injury risk. Outcome: Ongoing Goal: Patient will remain safe from falls and injury. Outcome: Ongoing Goal: Patient/family will understand fall prevention measures. Outcome: Ongoing Goal: Patient/family will understand injury reduction measures. Outcome: Ongoing Goal: Patient/family will comply with fall program. Outcome: Ongoing Goal: Patient/family verbalize fall prevention strategies to implement after discharge. Outcome: Ongoing ENGINEER * Sammy Carrero MD - 11/08/2019 5:48 AM CST [facility] Daily Progress Note Saray Whitten, 59 year old, female : 1960 CSN: [id number] Primary Care Physician: Esperanza Ho MD - Admission Date/Time: 11/01/2019 1:54 PM - Hospital Day: 7 Subjective Patient seen and examined this AM on rounds. No acute events overnight, pain better controlled but still having multiple bouts of breakthrough pain. Denies new numbness/paresthesias. Has started to speak with her family and make decisions about rehab facility. States she had a bowel movement this morning. Overall feeling better each day. Flatus/BM: BM this morning per patient Urinary status: voiding Vitals Temp (24hrs), Av.3 ??F (36.8 ??C), Min:98.1 ??F (36.7 ??C), Max:98.5 ??F (36.9 ??C) BP 129/76 Pulse 91 Temp 98.1 ??F (36.7 ??C) (Oral) Resp 16 Ht 1.676 m (5' 6 ) Wt 94.3 kg (208 lb) SpO2 95% BMI 33.57 kg/m2 Labs Recent Labs Component Name 11/08/19 0249 11/07/19 0259 11/06/19 0247 WBC 6.5 6.7 8.6 HGB 8.4* 8.7* 8.4* HCT 26.8* 27.5* 26.9* PLTCOUNT 253 233 207 Recent Labs Component Name 10/22/19 1209 INR 1.0 Cultures Microbiology Results (Displays last 21 days for this encounter ONLY) Procedure Component Value - Date/Time CULTURE URINE [[id number]] Collected: 10/22/19 1209 Lab Status: Final result Specimen: Urine Clean Catch Updated: 10/24/19 0355 Culture Urine 10,000-50,000 CFU/mL urogenital dylon Physical Exam General: Awake, cooperative, in no acute distress. Back: -Wounds: dressing intact with no evidence of saturation -Tenderness to palpation: absent - ROM: not assessed Bilateral Upper Extremity: - Motor: Spontaneously moves both upper extremities through functional range of motion. Uses both extremities to roll in bed - Sensory: intact to light touch in C5-T1 distribution Right Lower Extremity: - Motor: Hip flexion 5/5, Ankle dorsiflexion/plantar flexion 5/5 - Sensation: intact to light touch in the distal extremity Left Lower Extremity: - Motor: Hip flexion limited secondary to back pain, Able to hold leg above bed. Ankle dorsiflexion/plantar flexion 5/5 - Sensation: intact to light touch in the distal extremity Assessment/Plan Patient is a 59 year old, female s/p L4-S1 ALIF, PISF L4-S1 by Dr. Carrero on 11/02/19 1. Activity: up as tolerated 2. Begin working on rehab placement 3. Anticoagulation Status: Eliquis 4. Diet: regular 5. Continue bowel regimen 6. PT/OT 7. Pain Control with PO medications, IV for breakthrough 8. Please page Ortho Spine with any questions or concerns. Meena Machado MD 11/08/2019 5:48 AM Attending Physician Supervisory Note I personally interviewed and examined the patient and agree with the doctor above. Sammy Carrero MD ENGINEER * Nasrin Scherer RN - 11/07/2019 10:43 PM CST Problem: Low Fall Risk (Score 7-10) Goal: Patient will remain as independent as possible. Outcome: Ongoing Goal: Patient will remain safe from falls and injury. Outcome: Ongoing Pt remains free from falls at this time. ENGINEER * Rhona Elise, PT - 11/07/2019 4:07 PM CST [facility] Department of Physical Medicine & Rehabilitation Progress Note Patient: Saray Whitten Med Record Number: [id number] Date of : 1960 Age: [age] year old 11/07/19 1600 Missed Visit Missed Visit Refused Patient refused therapy intervention due to Pain *States she has been active all afternoon and had to stand for the X-rays. ENGINEER * Misa Delgadillo RD/TANI - 11/07/2019 12:33 PM CST Clinical Nutrition Comments: Pt screened for LOS. Diet advanced to Regular with 100% intakes. BM 11/01, bowel regimen ordered. Back incision s/p L4-S1 ALIF, PISF L4-S1. Encouraged continued adequate intakes. No nutrition intervention warranted at this time. Diet order accuracy Current diet order: Regular Nutrition recommendation: agree with current nutrition order P.O.Intake for the past 48 hrs:% Meal Taken Av.7 % Min: 75 % Max: 100 % Height: 5' 6 (167.6 cm) Weight: 208 lb (94.3 kg) Body mass index is 33.57 kg/m??.BMI Range: Obese Class 1 Laboratory values reviewed. Medications noted. No acute nutrition issues identified at this time. Recommendations: Continue with Regular diet. Monitor nutrition per nutrition guidelines. Misa Delgadillo RD/TANI ENGINEER * Ketty Hartman LCSW - 11/07/2019 11:49 AM CST GABRIELE met with pt and pt's sister, Zahira, at bedside. SW discussed PT/OT recommendations for Acute Rehab. Pt is amenable. Choice was provided. Pt's first choice is [facility]. Referral sent. ?? JEANNE Fletcher, MEIR PRN Radiologic Technician [phone] ENGINEER * Mariaelena Shen - 11/07/2019 10:39 AM CST made initial visit to patient, sister Zahira at bedside. Patient shared that she came into the hospital for spinal surgery. Patient has been able to get up with PT, but indicated she is stillreceiving pain medication and sleeping a lot . Patient asked law librarian to keep her in prayer for her recovery. Patient is aware pastoral care is available as needed and assured of prayer support. [phone] ENGINEER * Yael Kelly COTA - 11/07/2019 9:19 AM CST [facility] Department of Physical Medicine & Rehabilitation Progress Note Patient: Saray Whitten [facility] Record Number: [id number] Date of : 1960 Age: [age] year old 11/07/19 0900 Missed Visit Missed Visit Other (Comment) Pt currently receiving bed bath from RN. Will check back in afternoon if schedule allows. DIGNA Hewitt 11/07/2019 9:20 AM ENGINEER * Mary Kate Moody RN - 11/07/2019 8:11 AM CST Problem: Low Fall Risk (Score 7-10) Goal: Patient will have lower fall risk. Outcome: Ongoing Goal: Patient will have lower injury risk. Outcome: Ongoing Goal: Patient will remain safe from falls and injury. Outcome: Ongoing Goal: Patient/family will understand fall prevention measures. Outcome: Ongoing Goal: Patient/family will understand injury reduction measures. Outcome: Ongoing Goal: Patient/family will comply with fall program. Outcome: Ongoing Goal: Patient/family verbalize fall prevention strategies to implement after discharge. Outcome: Ongoing Problem: Balance Goal: LTG - Patient will maintain standing and sitting balance to allow for completion of daily activities Outcome: Ongoing Problem: Skin Integrity Goal: Skin integrity is maintained or improved Outcome: Ongoing Problem: Daily Care Goal: Daily care needs are met Outcome: Ongoing ENGINEER * Sammy Carrero MD - 11/07/2019 6:24 AM CST [facility] Orth[facility] Spine Surgery Daily Progress Note Saray Whitten, 59 year old, female : 1960 CSN: [id number] Primary Care Physician: Esperanza Ho MD - Admission Date/Time: 11/01/2019 1:54 PM - Hospital Day: 6 Subjective Patient seen and examined this AM on rounds. No acute events overnight, pain controlled. Denies newnumbness/paresthesias. Pt working with PT, although not moving much. Reports her Abd is feeling better and would like to try some regular food today Flatus/BM: +/ no BM Urinary status: voiding Vitals Temp (24hrs), Av.1 ??F (36.7 ??C), Min:97.5 ??F (36.4 ??C), Max:99 ??F (37.2 ??C) BP 126/77 Pulse 89 Temp 98.2 ??F (36.8 ??C) (Oral) Resp 17 Ht 5' 6 (1.676 m) Wt 208 lb (94.3 kg) SpO2 92% BMI 33.57 kg/m2 Labs Recent Labs Component Name 11/07/19 0259 11/06/19 0247 11/05/19 0325 WBC 6.7 8.6 11.4* HGB 8.7* 8.4* 8.9* HCT 27.5* 26.9* 28.5* PLTCOUNT 233 207 160 Recent Labs Component Name 10/22/19 1209 INR 1.0 Cultures Microbiology Results (Displays last 21 days for this encounter ONLY) Procedure Component Value - Date/Time CULTURE URINE [[id number]] Collected: 10/22/19 1209 Lab Status: Final result Specimen: Urine Clean Catch Updated: 10/24/19 0358 Culture Urine 10,000-50,000 CFU/mL urogenital dylon Physical Exam General: Awake, cooperative, in no acute distress. Back: -Wounds: Dressing in place with min saturation -Tenderness to palpation: minimal - ROM: deferred Bilateral Upper Extremity: - Motor: Shoulder Abduction 5/5 Elbow Extension 5/5 Elbow Flexion 5/5 Wrist Extension 5/5 Wrist Flexion 5/5 Finger Flexion 5/5 Finger Abduction 5/5 - Sensory: intact to light touch in C5-T1 distribution Bilateral Lower Extremity: - Motor: Hip Flexion 4/5 R, 3/5 L Knee Flexion 5/5 Knee Extension 5/5 Ankle Dorsiflexion 5/5 Great Toe Extension 5/5 Ankle Plantarflexion 5/5 - Sensation: intact to light touch distally in L1-S1 distribution Assessment/Plan Patient is a 59 year old, female s/p L4-S1 ALIF, PISF L4-S1 by Dr. Carrero on 11/02/19 ?? 1. Activity: up as tolerated 2. Anticoagulation Status: Eliquis 3. Wound care: Dressing changed this AM Diet: will advance to regular diet 4. Continue bowel regimen 5. PT/OT 6. Pain Control, transition 911 TELECOMMUNICATOR to PO 7. OrthoSpine will continue to follow. Please page with any questions or concerns Nury Gray MD 11/07/2019 6:25 AM Attending Physician Supervisory Note I personally interviewed and examined the patient and agree with the doctor above. Work on rehab placement. Sammy Carrero MD ENGINEER * Eliza Hernandes, PT - 11/06/2019 3:02 PM CST [facility] Physical Medicine and Rehabilitation PhysicalTherapy Progress Note Patient: Saray Whitten Med Record Number: [id number] Date of : 1960 Age: [age] year old Discharge Recommendation: Patient will benefit from intense 3 hour per day multidisciplinary inpatient therapies due to decreased mobility post spinal surgery. Frequency: Patient will be scheduled 7x/week while in hospital. Subjective: I'm going to rehab Patient currently using Wheeled Walker and needs equipment if d/c home. Mental Status: A & O x 3 At start of therapy session, patient found in bed and with no alarm. Pain: Patient has 8 out of 10 pain in back. Patient is pushing 911 TELECOMMUNICATOR. Nurse notified. Weight Bearing Status: WBAT Mobility: Rolling: Moderate assist Supine to Sit:Moderate assist Sit to Supine: Moderate assist Sit to Stand:Moderate assist with wheeled walker Bed to Chair: not tested (patient refused) Gait: Device:Wheeled Walker Assistance: Moderate assist Distance: 3-4 side steps (refused further gait) Deviations: slow and guarded Balance: Static Sitting: good Dynamic sitting: good minus Static Standing: fair plus Dynamic Standing: fair Vitals: (*Assess the 3 levels of oxygen saturations both for room air and 02 unless rest on room air is 88% or less). Rest BP: HR: Sp02 Sp02 Room Air L O2 Ex/Gait/Activity Without 02 BP: HR: 102 Sp02 94% Room Air Ex/Gait/Activity With 02 BP: HR: Sp02 L O2 Post Activity BP: HR: Sp02 Sp02 L O2 Room Air Observations: No SOB reported Activity Tolerance: Patient's activity tolerance: fair minus Treatment/therapeutic Exercise: Patient worked on transfer training and limited gait skills. She continues to report 04/14 which is limiting her mobility and refused transfer to chair. Patient was educated on importance of progressing mobility and she agreed to get into the chair tomorrow. Patient/Family Teaching: Exercise, Gait and Mobility Patient demonstrated Fair understanding of instructions given. Short Term Goals: Goal Formation?With patient Patient will perform bed mobility:??Stand By Assist Patient will transfer sit to/from stand:??Stand By Assist Patient will transfer bed to/from chair:??Stand By Assist Patient will ambulate??125??feet with Minimal assist??and appropriate AD ?? Alf Goal(s): Patient to discharge to appropriate next level of inpatient care Update Treatment Plan: Continue per POC If patient is discharged from the facility, this note serves as a discharge note if further physical therapy visits did not occur. Following therapy session, patient left in bed and with call light within reach. Eliza Hernandes, PT 11/06/2019 ENGINEER * Jossie Garcia, OT - 11/06/2019 2:52 PM CST [facility] Physical Medicine and Rehabilitation Occupational Therapy Progress Note Patient: Saray Whitten Med Record Number: [id number] Date of : 1960 Age: [age] year old Discharge Recommendation: Patient will benefit from intense 3 hour per day multidisciplinary inpatient therapies due to currently requiring increased assist to complete mobility and ADLs post spinal surgery. Prior to admission, pt independent with ADLs/mobility. Frequency: Patient will be scheduled 7x/week while in hospital. Precautions: Spinal Subjective: I can try , patient reports fatigue due to PT prior. At start of therapy session, patient found in bed. Pain: Patient reports intermittent moderate incisional pain, agrees to proceed, uses 911 TELECOMMUNICATOR during session. Activities of Daily Living Feeding: not tested Grooming/Bathing: Minimal assist to complete upper body bathing sitting EOB Upper Extremity Dressing: Minimal assist to don/doff gown sitting EOB Lower Extremity Dressing: Maximal assist to don/doff socks sitting EOB Toileting/Transfers: not tested, declines need Mobility: Assist device: Wheeled Walker Supine to/from Sit:Moderate assist Sit to/from Stand: Moderate assist Bed to/from Chair: not tested Functional Mobility: ~4 steps at EOB with mod assist Splint Issued/Checked: none Splint Check Completed: N/A Balance: Static Sitting: fair Dynamic Sitting: fair minus Static Standing: poor Dynamic Standing: poor Activity tolerance: fair Cognitive/Perceptual: Patient A&O x4, has good safety awareness, and good insight to deficits, good understanding of spinal precautions. Patient follows 100% of multi-step commands and is appropriate in conversation. Treatment/Therapeutic Exercise: Treatment session this date focused on ADL training Functional transfer training Endurance training Bed mobility Safety awareness Patient/Family Teaching: Mobility and Self care Equipment Issued: none Update Treatment Plan/Goals : Patient continues to benefit from skilled OT to improve independence with activities of daily living, increase strength, endurance, range of motion and decrease pain. Will continue per POC. STG updated. Short Term Goals: Patient will perform lower extremity dressing?With mod assist Patient will perform supine to sit?With min assist Patient will perform sit to stand?With min assist and X 1 Patient will tolerate treatment?20 minutes, with fair endurance and with minimal pain Education:?good, safety education and spine precautions ?? Alf Goal:Patient to discharge to appropriate next level of inpatient care If patient is discharged from the facility, this note serves as a discharge note if further occupational therapy visits did not occur. Following therapy session, patient left in bed, with bed alarm on, with call light within reach, with family in room and with RN/CP rehab cues written on white board. Jossie Garcia OT ENGINEER * Mary Kate Moody RN - 11/06/2019 10:53 AM CST Problem: Low Fall Risk (Score 7-10) Goal: Patient will have lower fall risk. 11/06/2019 105 by Mary Kate Moody RN Outcome: Ongoing 11/06/2019 1047 by Mary Kate Moody RN Outcome: Ongoing Goal: Patient will have lower injury risk. 11/06/2019 1053 by Mary Kate Moody RN Outcome: Ongoing 11/06/2019 1047 by Mary Kate Moody RN Outcome: Ongoing Goal: Patient will remain safe from falls and injury. 11/06/2019 1053 by Mary Kate Moody RN Outcome: Ongoing 11/06/2019 104 by Mary Kate Moody RN Outcome: Ongoing Goal: Patient/family will understand fall prevention measures. 11/06/2019 1053 by Mary Kate Moody RN Outcome: Ongoing 11/06/2019 104 by Mary Kate Moody RN Outcome: Ongoing Goal: Patient/family will understand injury reduction measures. 11/06/2019 1053 by Mary Kate Moody RN Outcome: Ongoing 11/06/2019 1047 by Mary Kate Moody RN Outcome: Ongoing Goal: Patient/family will comply with fall program. 11/06/2019 1053 by Mary Kate Moody RN Outcome: Ongoing 11/06/2019 1047 by Mary Kate Moody RN Outcome: Ongoing Goal: Patient/family verbalize fall prevention strategies to implement after discharge. 11/06/2019 1053 by Mary Kate Moody RN Outcome: Ongoing 11/06/2019 1047 by Mary Kate Moody RN Outcome: Ongoing Problem: Skin Integrity Goal: Skin integrity is maintained or improved 11/06/2019 1053 by Mary Kate Moody RN Outcome: Ongoing 11/06/2019 104 by Mary Kate Moody RN Outcome: Ongoing Problem: Daily Care Goal: Daily care needs are met 11/06/2019 1053 by Mary Kate Moody RN Outcome: Ongoing 11/06/2019 1047 by Mary Kate Moody RN Outcome: Ongoing ENGINEER * Mary Kate Moody RN - 11/06/2019 10:47 AM CST Problem: Low Fall Risk (Score 7-10) Goal: Patient will have lower fall risk. Outcome: Ongoing Goal: Patient will have lower injury risk. Outcome: Ongoing Goal: Patient will remain safe from falls and injury. Outcome: Ongoing Goal: Patient/family will understand fall prevention measures. Outcome: Ongoing Goal: Patient/family will understand injury reduction measures. Outcome: Ongoing Goal: Patient/family will comply with fall program. Outcome: Ongoing Goal: Patient/family verbalize fall prevention strategies to implement after discharge. Outcome: Ongoing Problem: Skin Integrity Goal: Skin integrity is maintained or improved Outcome: Ongoing Problem: Daily Care Goal: Daily care needs are met Outcome: Ongoing ENGINEER * Judson Anderson MD - 11/06/2019 8:19 AM CST Vascular Surgery Progress Note Name: Saray Whitten Hospital Day: 5 HPI:Saray Whitten is a 59F with lumbar stenosis/radiculopathy now status-post elective L4-S1 SKILLED NURSING, L4S1 PSF, L4/5 hemilaminectomy, facetectomy on 11/02/2019. Subjective: Pt seen and examined at bedside, HD stable, afebrile, normotensive, no acute events overnight. She is passing some gas but still no bowel movement. She has not been ambulating much since the procedure. Denies any nausea and is currently on CLD. Anticoagulation: Eliquis 2.5mg Antibiotics: None. Objective: BP 135/86 Pulse 96 Temp 98.1 ??F (36.7 ??C) (Oral) Resp 18 Ht 5' 6 (1.676 m) Wt 208 lb (94.3 kg) SpO2 96% BMI 33.57 kg/m2 Temp (24hrs), Av.7 ??F (37.1 ??C), Min:97.7 ??F (36.5 ??C), Max:100.1 ??F (37.8 ??C) Intake/Output Summary (Last 24 hours) at 11/06/2019 0819 Last data filed at 11/05/2019 1815 Gross per 24 hour Intake 1958.83 ml Output 400 ml Net 1558.83 ml Exam: Gen: Alert and oriented, NAD Resp: unlabored breathing on room air CV: RRR Abd: Soft, slightly distended, tender to palpation on the left side, incision with clean dressing. Pulses: palpable DP bilaterally. Meds: Current Facility-Administered Medications Medication ??? acetaminophen (TYLENOL) tablet 650 mg ??? amitriptyline (ELAVIL) tablet 25 mg ??? apixaban (ELIQUIS) tablet 2.5 mg ??? docusate sodium (COLACE) capsule 100 mg ??? DULoxetine (CYMBALTA) capsule 30 mg ??? HYDROmorphone (DILAUDID) 0.2 mg/ml 911 TELECOMMUNICATOR ??? lactated ringers infusion ??? naloxone (NARCAN) injection 0.2 mg ??? oxyCODONE-acetaminophen (PERCOCET) 5-325 MG tablet 1 tablet Or ??? oxyCODONE-acetaminophen (PERCOCET) 5-325 MG tablet 2 tablet ??? phenol (CHLORASEPTIC) 1.4 % liquid ??? polyethylene glycol 3350 (MIRALAX) packet 17 g ??? potassium chloride ER (KLOR-CON M) tablet 20 mEq ??? senna-docusate (SENOKOT-S) tablet 1 tablet ??? throat lozenge 1 lozenge Labs: @LABSL@ Recent Labs Component Name 11/06/19 0247 WBC 8.6 HGB 8.4* HCT 26.9* Recent Labs Component Name 11/06/19 0247 11/02/19 1409 NA 138 - - K - - 4.0 CL 103 - - CO2 27 - - BUN 6* - - CREATININE 0.5* - - - = values in this interval not displayed. Recent Labs Component Name 10/22/19 1209 PT 12.5 PTT 28.7 INR 1.0 Assessment/Plan: Saray Whitten is a 59 year old female with lumbar stenosis/radiculopathy now status-post elective L4-S1 AARTI, L4S1 PSF, L4/5 hemilaminectomy, facetectomy on 11/02/19. Patient passing flatus now, abdominal pain controlled, up with PT. ?? - advance diet as tolerated, encourage ambulation - okay to remove dressing on discharge - please contact vascular surgery with any additional questions or concerns Judson Anderson MD 11/06/2019 3:16 PM ENGINEER * Sammy Carrero MD - 11/06/2019 7:46 AM CST [facility] Daily Progress Note Saray Whitten, 59 year old, female : 1960 CSN: [id number] Primary Care Physician: Esperanza Ho MD - Admission Date/Time: 11/01/2019 1:54 PM - Hospital Day: 5 Subjective Patient seen and examined this AM on rounds. No acute events overnight. She is still having back pain and abdominal tightness, but she states that this is improved today. Denies new numbness/paresthesias. She has been passing some gas. She continues to describe heaviness of the left leg. Flatus/BM: minimal flatus Urinary status: voiding Vitals Temp (24hrs), Av.7 ??F (37.1 ??C), Min:97.7 ??F (36.5 ??C), Max:100.1 ??F (37.8 ??C) BP 135/86 Pulse 96 Temp 98.1 ??F (36.7 ??C) (Oral) Resp 18 Ht 1.676 m (5' 6 ) Wt 94.3 kg (208 lb) SpO2 96% BMI 33.57 kg/m2 Labs Recent Labs Component Name 11/06/19 0247 11/05/19 0325 11/04/19 0208 WBC 8.6 11.4* 12.9* HGB 8.4* 8.9* 9.0* HCT 26.9* 28.5* 29.2* PLTCOUNT 207 160 160 Recent Labs Component Name 10/22/19 1209 INR 1.0 Cultures Microbiology Results (Displays last 21 days for this encounter ONLY) Procedure Component Value - Date/Time CULTURE URINE [[id number]] Collected: 10/22/19 1209 Lab Status: Final result Specimen: Urine Clean Catch Updated: 10/24/19 0358 Culture Urine 10,000-50,000 CFU/mL urogenital dylon Physical Exam General: Awake, cooperative, in no acute distress. Left Lower Extremity: - Motor: able to flex at hip, flex/extend at knee, plantar flex/dorsiflex ankle, unable to grade secondary to patient pain - Sensation: intact to light touch distally in L1-S1 distribution Right Lower Extremity: - Motor: Hip Flexion Intact, limited by pain Knee Flexion 5/5 Knee Extension 5/5 Ankle Dorsiflexion 5/5 Great Toe Extension 5/5 Ankle Plantarflexion 5/5 - Sensation: intact to light touch distally in L1-S1 distribution Assessment/Plan Patient is a 59 year old, female s/p L4-S1 ALIF, PISF L4-S1 by Dr. Carrero on 11/02/19 1. Activity: up as tolerated 2. Anticoagulation Status: Eliquis 3. Wound care: will change dressings as needed for saturation 4. Diet: clear liquid diet, continue to wait for return of bowel function 5. Continue bowel regimen 6. PT/OT 7. Pain Control, continue 911 TELECOMMUNICATOR until better tolerating oral intake 8. OrthoSpine will continue to follow. Please page with any questions or concerns Meena Machado MD 11/06/2019 7:47 AM Attending Physician Supervisory Note I personally interviewed and examined the patient and agree with the doctor above. Sammy Carrero MD ENGINEER * Judson Anderson MD - 11/05/2019 5:29 PM CST Vascular Surgery Progress Note Name: Saray Whitten Hospital Day: 4 Subjective: Abdominal pain improved, no nausea/emesis, no flatus/bowel movement, up to chair yesterday Anticoagulation: eliquis Antiplatelet: none Antibiotics: none Objective: BP 144/78 Pulse 109 Temp 97.7 ??F (36.5 ??C) (Oral) Resp 16 Ht 5' 6 (1.676 m) Wt 208 lb (94.3 kg) SpO2 98% BMI 33.57 kg/m2 Temp (24hrs), Av.8 ??F (37.1 ??C), Min:97.5 ??F (36.4 ??C), Max:100.1 ??F (37.8 ??C) Intake/Output Summary (Last 24 hours) at 11/05/2019 1729 Last data filed at 11/05/2019 1610 Gross per 24 hour Intake 6165.78 ml Output 400 ml Net 5765.78 ml Exam: Gen: alert and oriented, NAD Resp: unlabored breathing on room air CV: RRR Abd: Soft, non-distended, tenderness to palpation on left side, incision with clean dressing, no peritoneal signs Pulses: palpable DP bilaterally Meds: Current Facility-Administered Medications Medication ??? acetaminophen (TYLENOL) tablet 650 mg ??? amitriptyline (ELAVIL) tablet 25 mg ??? apixaban (ELIQUIS) tablet 2.5 mg ??? docusate sodium (COLACE) capsule 100 mg ??? DULoxetine (CYMBALTA) capsule 30 mg ??? HYDROmorphone (DILAUDID) 0.2 mg/ml 911 TELECOMMUNICATOR ??? lactated ringers infusion ??? naloxone (NARCAN) injection 0.2 mg ??? oxyCODONE-acetaminophen (PERCOCET) 5-325 MG tablet 1 tablet Or ??? oxyCODONE-acetaminophen (PERCOCET) 5-325 MG tablet 2 tablet ??? phenol (CHLORASEPTIC) 1.4 % liquid ??? polyethylene glycol 3350 (MIRALAX) packet 17 g ??? potassium chloride ER (KLOR-CON M) tablet 20 mEq ??? senna-docusate (SENOKOT-S) tablet 1 tablet ??? throat lozenge 1 lozenge Labs: @LABSLH@ Recent Labs Component Name 11/05/19324 WBC 11.4* HGB 8.9* HCT 28.5* Recent Labs Component Name 11/05/19 0325 11/02/19 1409 NA 140 - - K - - 4.0 CL 106 - - CO2 22 - - BUN 8 - - CREATININE 0.7 - - - = values in this interval not displayed. Recent Labs Component Name 10/22/19 1209 PT 12.5 PTT 28.7 INR 1.0 Assessment/Plan: Patient Active Problem List: Spondylolisthesis at L4-L5 level Lumbosacral radiculopathy at L5 Red blood cell antibody positive Patient is a 59F with lumbar stenosis/radiculopathy now status-post elective L4- S1 SKILLED NURSING, L4S1 PSF, L4/5 hemilaminectomy, facetectomy on 11/02/19. Patient with some abdominal pain and distention, likelyileus, advancing diet slowly. - vascular will continue to follow, encourage ambulation with PT, awaiting return of bowel function Judson Adnerson MD 11/05/2019 5:29 PM ENGINEER * Ketty Hartman LCSW - 11/05/2019 2:51 PM CST SW met with pt and pt's sister, Zahira, at bedside. SW discussed PT/OT recommendations for Acute Rehab. Pt was quite sleepy and continually fell asleep throughout conversation. SW to visit again once pt able to effectively participate. JEANNE Fletcher, MEIR PRN Radiologic Technician [phone] ENGINEER * Eliza Hernandes, PT - 11/05/2019 12:46 PM CST [facility] PhysicalTherapy Progress Note Patient: Saray Whitten Med Record Number: [id number] Date of : 1960 Age: [age] year old Co treat with OT Discharge Recommendation: Patient will benefit from intense 3 hour per day multidisciplinary inpatient therapies due to decreased functional mobility skills s/p spine surgery. Frequency: Patient will be scheduled 7x/week while in hospital. Subjective: Patient was agreeable to therapy. Patient currently using Wheeled Walker and needs equipment if d/c home. Mental Status: A & O x 3 At start of therapy session, patient found in bed and with no alarm. Pain: Patient has 8 1/2 out of 10 pain in spine at surgery site. Patient pushing her 911 TELECOMMUNICATOR. Weight Bearing Status: WBAT Mobility: Rolling: Moderate assist Supine to Sit:Moderate assist of 2 Sit to Supine: Moderate assist of 2 Sit to Stand:Moderate assist of 1 with walker Bed to Chair: not tested Gait: Patient gait trained with wheeled walker 3-4 sidesteps with mod assist of 1 Balance: Static Sitting: fair plus Dynamic sitting: fair Static Standing: fair minus Dynamic Standing: fair minus Vitals: (*Assess the 3 levels of oxygen saturations both for room air and 02 unless rest on room air is 88% or less). Rest BP: HR: Sp02 Sp02 Room Air L O2 Ex/Gait/Activity Without 02 BP: 137/78 (sitting) HR: 112 Sp02 98% Room Air RA Ex/Gait/Activity With 02 BP: HR: Sp02 L O2 Post Activity BP: HR: Sp02 Sp02 L O2 Room Air Observations: Patient reported dizziness with sitting Activity Tolerance: Patient's activity tolerance: fair minus Treatment/therapeutic Exercise: Patient transferred to edge of bed with assist of 2 and required assist for positioning as she tends to keep center of gravity posteriorly. She stood at bedside 2 repsand took 3-4 sidesteps with walker. Limited by dizziness and fatigue this date and unable to progress gait. Patient/Family Teaching: Gait, Mobility and Spine Education Patient demonstrated Good understanding of instructions given. Short Term Goals: Goal Formation?With patient Patient will perform bed mobility:??Stand By Assist Patient will transfer sit to/from stand:??Stand By Assist Patient will transfer bed to/from chair:??Stand By Assist Patient will ambulate??125??feet with Minimal assist??and appropriate AD ?? Tobacco Conditioner Goal(s): Patient to discharge to appropriate next level of inpatient care ?? Update Treatment Plan: Continue per POC If patient is discharged from the facility, this note serves as a discharge note if further physical therapy visits did not occur. Following therapy session, patient left in bed, with call light within reach and with family in room. Eliza Hernandes, PT 11/05/2019 ENGINEER * Elidia Martinez, OT - 11/05/2019 10:32 AM CST [facility] Occupational Therapy Progress Note Patient: Saray Whitten Med Record Number: [id number] Date of : 1960 Age: [age] year old Co treat with PT 2/2 level of skilled assist required. Discharge Recommendation: Patient will benefit from intense 3 hour per day multidisciplinary inpatient therapies due to decreased balance, endurance, strength, and mobility preventing safe return to home. Frequency: Patient will be scheduled 7x/week while in hospital. Precautions: Subjective: I feel better today. At start of therapy session, patient found in bed and with bed alarm on. Pain: Patient has 8 out of 10 pain. Nurse notified. Activities of Daily Living Not tested; session focused on improving mobility. Mobility: Assist device: Wheeled Walker Supine to/from Sit:Moderate assist of 2 for log roll to side of bed. Sit to/from Stand: Moderate assist of 2 for first stand, mod of 1 for second stand due to decreasedforce production. Stood ~30 seconds first stand and 15 seconds second stand. Bed to/from Chair: not tested Functional Mobility: mod assist x 1 for side steps up to head of bed. Splint Issued/Checked: none Splint Check Completed: N/A Balance: Static Sitting: fair plus Dynamic Sitting: fair plus Static Standing: fair Dynamic Standing: fair Vitals: Rest BP: HR: SpO2 SpO2 Room Air L 02 Ex/Gait/Activity Without 02 BP: HR: SpO2 Room Air Ex/Gait/Activity With 02 BP: HR: SpO2 L 02 Post Activity BP: HR: SpO2 SpO2 L 02 Room Air Observations: VSS throughout, no signs of distress. Activity tolerance: fair minus Cognitive/Perceptual: A&O via conversation. 100% command follow. Fair insight into deficits andsafety with cues for log roll. Able to engage in conversation. Treatment/Therapeutic Exercise: Treatment session this date focused on Functional transfer training Endurance training Bed mobility Safety awareness Patient/Family Teaching: Mobility Equipment Issued: none Update Treatment Plan/Goals : continue plan of care. Short Term Goals: Patient will perform lower extremity dressing?With mod assist Patient will perform supine to sit?With mod assist and X 1 Patient will perform sit to stand?With min assist and X 1 Patient will tolerate treatment?20 minutes, with fair endurance and with minimal pain Education:?good, safety education and spine precautions Alf Goal:Patient to discharge to appropriate next level of inpatient care If patient is discharged from the facility, this note serves as a discharge note if further occupational therapy visits did not occur. Following therapy session, patient left in bed, with bed alarm on, with call light within reach andwith family in room. Elidia Martinez OT ENGINEER * Evelin Tamez RN - 11/05/2019 8:36 AM CST Problem: Low Fall Risk (Score 7-10) Goal: Patient will remain as independent as possible. Outcome: Ongoing Goal: Patient will have lower fall risk. Outcome: Ongoing Goal: Patient will have lower injury risk. Outcome: Ongoing Goal: Patient will remain safe from falls and injury. Outcome: Ongoing Goal: Patient/family will understand fall prevention measures. Outcome: Ongoing Goal: Patient/family will understand injury reduction measures. Outcome: Ongoing Goal: Patient/family will comply with fall program. Outcome: Ongoing Goal: Patient/family verbalize fall prevention strategies to implement after discharge. Outcome: Ongoing Problem: Balance Goal: LTG - Patient will maintain standing and sitting balance to allow for completion of daily activities Outcome: Ongoing Problem: Skin Integrity Goal: Skin integrity is maintained or improved Outcome: Ongoing Problem: Daily Care Goal: Daily care needs are met Outcome: Ongoing ENGINEER * Meena Machado MD - 11/05/2019 6:19 AM CST [facility] Orthopedic Spine Surgery Daily Progress Note Saray Whitten, 59 year old, female : 1960 CSN: [id number] Primary Care Physician: Esperanza Ho MD - Admission Date/Time: 11/01/2019 1:54 PM - Hospital Day: 4 Subjective Patient seen and examined this AM on rounds. No acute events overnight, pain controlled. Denies newnumbness/paresthesias but states that left leg feels heavy this morning during exam. Denies feelings of nausea or bloating. She would like to try liquids today. Flatus/BM: no flatus Urinary status: Dumas Vitals Temp (24hrs), Av.7 ??F (37.1 ??C), Min:97.5 ??F (36.4 ??C), Max:100.1 ??F (37.8 ??C) BP 138/75 Pulse 108 Temp 99.1 ??F (37.3 ??C) (Oral) Resp 18 Ht 1.676 m (5' 6 ) Wt 94.3 kg (208 lb) SpO2 96% BMI 33.57 kg/m2 Labs Recent Labs Component Name 11/05/19 0325 11/04/19 0208 11/03/19 0714 WBC 11.4* 12.9* 12.4* HGB 8.9* 9.0* 9.5* HCT 28.5* 29.2* 30.4* PLTCOUNT 160 160 183 Recent Labs Component Name 10/22/19 1209 INR 1.0 Cultures Microbiology Results (Displays last 21 days for this encounter ONLY) Procedure Component Value - Date/Time CULTURE URINE [[id number]] Collected: 10/22/19 120 Lab Status: Final result Specimen: Urine Clean Catch Updated: 10/24/19 035 Culture Urine 10,000-50,000 CFU/mL urogenital dylon Physical Exam General: Awake, cooperative, in no acute distress. Back: -Wounds: incisions with dressing in place that is clean and dry, interval removal of hemovac drain Right Lower Extremity: - Motor: Hip Flexion 4/5 Knee Flexion 5/5 Knee Extension 5/5 Ankle Dorsiflexion 5/5 Great Toe Extension 5/5 Ankle Plantarflexion 5/5 - Sensation: intact to light touch distally in L1-S1 distribution Left Lower Extremity: - Motor: Hip Flexion 3/5 Knee Flexion 3/5 Knee Extension 3/5 Ankle Dorsiflexion 5/5 Great Toe Extension 5/5 Ankle Plantarflexion 5/5 - Sensation: intact to light touch distally in L1-S1 distribution Assessment/Plan Patient is a 59 year old, female with s/p L4-S1 ALIF, PISF L4-S1 by Dr. Carrero on 11/02/19 1. Activity: as tolerated 2. Anticoagulation Status: will discuss resuming with team 3. Diet: advanced to clear liquid diet this am 4. Continue bowel regimen 5. Will plan to discontinue dumas this afternoon after mobilization 6. PT/OT 7. Pain Control 8. OrthoSpine will continue to follow. Please page with any questions or concerns Meena Machado MD 11/05/2019 6:20 AM ENGINEER * LincolnAlberta malik, OT - 11/04/2019 11:24 AM CST [facility] Occupational Therapy Progress Note Patient: Saray Whitten Med Record Number: [id number] Date of : 1960 Age: [age] year old Discharge Recommendation: Patient will benefit from intense 3 hour per day multidisciplinary inpatient therapies due to decreased ADLs and functional mobility s/p spine surgery. Frequency: Patient will be scheduled 7x/week while in hospital. Precautions: spinal precautions Subjective: I can try. Patient agreeable to participate. Her sister is at bedside. At start of therapy session, patient found in bed and with no alarm. Pain: Patient has 10 out of 10 pain in incision site. Pt reports increased pain with mobility. Pt has 911 TELECOMMUNICATOR. Nurse notified. Activities of Daily Living Feeding: NT Grooming/Bathing: not tested - politely declined Upper Extremity Dressing: Maximal assist to fasten tie gown sitting at EOB Lower Extremity Dressing: Maximal assist to don bilateral socks supine in bed. Toileting/Transfers: not tested - dumas catheter Mobility: Assist device: none Supine to Sit:Maximal assist of 1 Sit to supine: Maximum assist of 2 Scooting up in bed and scooting along EOB: Maximum assist of 1-2 Sit to/from Stand: not tested Bed to/from Chair: not tested Functional Mobility: not tested due to uncontrolled pain Splint Issued/Checked: none Splint Check Completed: N/A Balance: Static Sitting: fair minus Dynamic Sitting: poor plus Static Standing: not tested Dynamic Standing: not tested Vitals: Rest BP: HR: SpO2 SpO2 Room Air L 02 Ex/Gait/Activity Without 02 BP: HR: SpO2 Room Air Ex/Gait/Activity With 02 BP: HR: SpO2 L 02 Post Activity BP: HR: SpO2 SpO2 L 02 Room Air Observations: No s/s of dizziness, SOB, etc. Activity tolerance: poor plus ; pt limited by c/o pain. Cognitive/Perceptual: Patient A&Ox3. Patient presents with good safety awareness and fair insight to deficits. Patient able to follow 100% of all commands. Patient good in conversation this date. Treatment/Therapeutic Exercise: Treatment session this date focused on ADL training Functional transfer training Endurance training Bed mobility Energy conservation Safety awareness HEP training ; pt participated in B UE/LE AROM exercises 1 set x 5 reps sitting at EOB with rest breaks between sets. Pt self- limiting at times. Educated on bed level exercises. Patient/Family Teaching: Exercise, Mobility, Self care and Patient voiced understanding of instructions given Equipment Issued: none Update Treatment Plan/Goals : Patient to benefit from continued skilled OT to improve independence with actities of daily living, increase strength, endurance, range of motion, and decrease pain. Continue goals per plan of care. Short Term Goals: Patient will perform lower extremity dressing With mod assist Patient will perform supine to sit With mod assist and X 1 Patient will perform sit to stand With mod assist and X 1 Patient will tolerate treatment 20 minutes, with fair endurance and with minimal pain Education: good, safety education and spine precautions Alf Goal:Patient to discharge to appropriate next level of inpatient care If patient is discharged from the facility, this note serves as a discharge note if further occupational therapy visits did not occur. Following therapy session, patient left in bed, with bed alarm on, with call light within reach, with family in room and with RN/CP rehab cues written on white board. Alberta Stark OT ENGINEER * Beata Goldberg, PT - 11/04/2019 9:51 AM CST [facility] PhysicalTherapy Progress Note Patient: Saray Whitten Med Record Number: [id number] Date of : 1960 Age: [age] year old Discharge Recommendation: Patient will benefit from intense 3 hour per day multidisciplinary inpatient therapies due to decreased mobility s/p spine surgery. Frequency: Patient will be scheduled 7x/week while in hospital. Patient is not ambulatory today due to pain. Subjective: Patient declined sitting up with therapy due to pain. (Chart reports NPO w/possible NG tube placement). Mental Status: Patient is alert and oriented times three. At start of therapy session, patient found in bed. Pain: Patient has 8-9/10 c/o pain in abd pre treatment, agreed only to exercises to encourage bowelmovement, declined sitting up/further mobility. Pain 8/10 after ex. Mobility: Rolling: Moderate assist to R; max partial turn to L, with pt limited by pain, not allowing furtherrotation to sidelying. Supine to Sit:declined Vitals: Rest BP: HR: Sp02 Sp02 Room Air L O2 Ex/Gait/Activity Without 02 BP: HR: Sp02 Room Air Ex/Gait/Activity With 02 BP: HR: Sp02 L O2 Post Activity BP: HR: Sp02 Sp02 L O2 Room Air Observations: Activity Tolerance: Patient's activity tolerance: poor this date Treatment/therapeutic Exercise: gluteal sets, quad sets, ankle pumps; AAROM B heel slides, hooklying hip abd/add, hip abd/add w/hip in neutral; bed mobility, positioning for decrease in pain. Patient/Family Teaching: Exercise, Mobility and log roll, the need for activity. Patient demonstrated Good understanding of instructions given. Short Term Goals: Goal Formation With patient Patient will perform bed mobility: Stand By Assist Patient will transfer sit to/from stand: Stand By Assist Patient will transfer bed to/from chair: Stand By Assist Patient will ambulate 125 feet with Minimal assist and appropriate AD Tobacco Conditioner Goal(s): Patient to discharge to appropriate next level of inpatient care Update Treatment Plan: continue progression toward goals If patient is discharged from the facility, this note serves as a discharge note if further physical therapy visits did not occur. Following therapy session, patient left in bed, with call light within reach and with family in room. Beata Goldberg, PT 11/04/2019 ENGINEER * Denny Acosta MD - 11/04/2019 9:08 AM CST [facility] Orthopedic Spine Surgery Daily Progress Note Saray Whitten, 59 year old, female : 1960 CSN: [id number] Primary Care Physician: Esperanza Ho MD - Admission Date/Time: 11/01/2019 1:54 PM - Hospital Day: 3 Subjective Having some abdominal discomfort. Denies nausea/vomiting. Denies being hungry. Denies flatus. Says her legs feel better today. Vitals Temp (24hrs), Av.8 ??F (37.1 ??C), Min:98.2 ??F (36.8 ??C), Max:99.5 ??F (37.5 ??C) BP 136/68 Pulse 107 Temp 98.3 ??F (36.8 ??C) (Oral) Resp 20 Ht 5' 6 (1.676 m) Wt 208 lb (94.3 kg) SpO2 100% BMI 33.57 kg/m2 Labs Recent Labs Component Name 11/04/19 0208 11/03/19 0714 11/02/19 0250 WBC 12.9* 12.4* 4.7 HGB 9.0* 9.5* 12.1 HCT 29.2* 30.4* 39.4 PLTCOUNT 160 183 205 Recent Labs Component Name 10/22/19 1209 INR 1.0 Cultures Microbiology Results (Displays last 21 days for this encounter ONLY) Procedure Component Value - Date/Time CULTURE URINE [[id number]] Collected: 10/22/19 1209 Lab Status: Final result Specimen: Urine Clean Catch Updated: 10/24/19 035 Culture Urine 10,000-50,000 CFU/mL urogenital dylon Physical Exam General: no acute distress Back: - Dressing remains clean and dry Drain output: HVx1: (70, 25) Bilateral Lower Extremity: - Motor: 5/5 ankle dorsiflexion/plantarflexion, 5/5 great toe flexion/extension Sensation: intact to light touch distally in L1-S1 distribution Assessment/Plan Patient is a 59 year old, female s/p L4-S1 ALIF, PISF L4-S1 by Dr. Carrero on 11/02/19 1. Activity: as tolerated 2. Anticoagulation Status: ok to resume 3. Diet: NPO for now, will resume when patient feels able. Will discuss with vascular surgery as well. 4. Continue bowel regimen 5. PT/OT 6. Drain dc this AM 7. Dumas until adequate mobilization 8. Pain Control 9. OrthoSpine will continue to follow. Please page with any questions or concerns Denny Acosta MD 11/04/2019 9:08 AM ENGINEER * Judson Anderson MD - 11/04/2019 9:00 AM CST Vascular Surgery Progress Note Name: Saray Whitten Hospital Day: 3 Subjective: Some abdominal pain and distention yesterday, no nausea/emesis, currently NPO Anticoagulation: none Antiplatelet: none Antibiotics: none Objective: BP 136/68 Pulse 107 Temp 98.3 ??F (36.8 ??C) (Oral) Resp 20 Ht 5' 6 (1.676 m) Wt 208 lb (94.3 kg) SpO2 100% BMI 33.57 kg/m2 Temp (24hrs), Av.8 ??F (37.1 ??C), Min:98.2 ??F (36.8 ??C), Max:99.5 ??F (37.5 ??C) Intake/Output Summary (Last 24 hours) at 11/04/2019 0900 Last data filed at 11/04/2019 0454 Gross per 24 hour Intake -- Output 1120 ml Net -1120 ml Exam: Gen: alert and oriented, NAD Resp: unlabored breathing on room air CV: RRR Abd: Soft, mildly distended, incision with clean dressing, no peritoneal signs Pulses: palpable DP bilaterally Meds: Current Facility-Administered Medications Medication ??? acetaminophen (TYLENOL) tablet 650 mg ??? amitriptyline (ELAVIL) tablet 25 mg ??? docusate sodium (COLACE) capsule 100 mg ??? DULoxetine (CYMBALTA) capsule 30 mg ??? HYDROmorphone (DILAUDID) 0.2 mg/ml 911 TELECOMMUNICATOR ??? lactated ringers infusion ??? naloxone (NARCAN) injection 0.2 mg ??? oxyCODONE-acetaminophen (PERCOCET) 5-325 MG tablet 1 tablet Or ??? oxyCODONE-acetaminophen (PERCOCET) 5-325 MG tablet 2 tablet ??? polyethylene glycol 3350 (MIRALAX) packet 17 g ??? senna-docusate (SENOKOT-S) tablet 1 tablet Labs: @LABSL@ Recent Labs Component Name 11/04/19207 WBC 12.9* HGB 9.0* HCT 29.2* Recent Labs Component Name 11/04/1920711/02/19 1409 NA 140 - - K - - 4.0 CL 106 - - CO2 24 - - BUN 7 - - CREATININE 0.8 - - - = values in this interval not displayed. Recent Labs Component Name 10/22/19 1209 PT 12.5 PTT 28.7 INR 1.0 Assessment/Plan: Patient Active Problem List: Spondylolisthesis at L4-L5 level Lumbosacral radiculopathy at L5 Red blood cell antibody positive Patient is a 59F with lumbar stenosis/radiculopathy now status-post elective L4- S1 SKILLED NURSING, L4S1 PSF, L4/5 hemilaminectomy, facetectomy on 11/02/19. Patient with some abdominal pain and distention, made NPO again, no nausea/emesis, likely ileus. - vascular will continue to follow, limit narcotics and encourage ambulation as able Judson Anderson MD 11/04/2019 9:00 AM ENGINEER * Julien Mcdaniels RN - 11/03/2019 8:29 PM CST Problem: Low Fall Risk (Score 7-10) Goal: Patient will remain as independent as possible. Outcome: Ongoing Goal: Patient will have lower fall risk. Outcome: Ongoing Goal: Patient will have lower injury risk. Outcome: Ongoing Goal: Patient will remain safe from falls and injury. Outcome: Ongoing Goal: Patient/family will understand fall prevention measures. Outcome: Ongoing Goal: Patient/family will understand injury reduction measures. Outcome: Ongoing Goal: Patient/family will comply with fall program. Outcome: Ongoing Goal: Patient/family verbalize fall prevention strategies to implement after discharge. Outcome: Ongoing Problem: Balance Goal: LTG - Patient will maintain standing and sitting balance to allow for completion of daily activities Outcome: Ongoing ENGINEER * Julien Mcdaniels RN - 11/03/2019 8:17 PM CST 1904 received report and assumed care of pt 1999 called team, resident said it was ok for me to give pill with sip of water. ENGINEER * Vangie Sanchez MD - 11/03/2019 5:15 PM CST Patient seen bedside for abdominal pain. Reports that stomach has been hurting for a couple hours. Has passed flatus since surgery but not today. Has not had a BM since surgery. Denies n/v.. Abdomen is mildly distended and tympanic. Has mild TTP over center of abdomen. Concern for patient developing an ileus. Will make patient NPO. Discussed with patient about being mindful of 911 TELECOMMUNICATOR uses as the narcotics are also contributing to this. Discussed that if she starts to have more abdominal distension, n/v, may need NG tube. Patient expressed understanding. ENGINEER * Bhumi Weber RN - 11/03/2019 4:06 PM CST This RN was called to the patient's room due to the patient asking for pain medication. The patientstated that the 911 TELECOMMUNICATOR was not helping the pain in her abdomen. This RN assessed the patient's abdomenand noted it to feel more firm and have increased distention from shift assessment this morning. This RN listened to all four quadrants and noted no bowel sounds for approximately 5 minutes. Pt stated that she felt like her abdomen was more firm than it was this morning and when asked about nausea,she confirmed that she was mildly nauseated. This RN paged Ortho spine with return call from OR nurse as they were scrubbed in for surgery. Update given and telephone order received for NPO status. Pt updated. Will monitor. ENGINEER * Damon Christian, PT - 11/03/2019 12:09 PM CST [facility] Physical Therapy Initial Evaluation Note Patient: Saray Whitten Med Record Number: [id number] Date of : 1960 Age: [age] year old Co-tx with OT Discharge Recommendation: Patient will benefit from intense 3 hour per day multidisciplinary inpatient therapies Frequency: Patient will be scheduled 7x/week while in hospital. Patient currently using Wheeled Walker and needs equipment if d/c home. Nurse and Occupational Therapy contacted regarding patient status and/or discharge plan. Physician Orders: Evaluation and Treat PRECAUTIONS: Fall Activity Level up ad alissa DIAGNOSIS: Patient Active Problem List: Spondylolisthesis at L4-L5 level Lumbosacral radiculopathy at L5 Red blood cell antibody positive Past Medical History: Diagnosis Date ??? Sarcoidosis 1995 no problems ??? SOB (shortness of breath) limited walking due to back SUBJECTIVE: I can try with you PATIENT GOALS: Return to PLOF Home living: Type of Residence: Private Residence Lives with:: Alone Steps to Enter: 4 Handrails: Outdoor Home Structure: One Story;Basement Primary Bedroom: First Floor Primary Bathroom: First Floor Bathroom : Tub/Shower Combo Equipment At Home: None Prior Function: Mobility: Independent Fallen Within 6 Mos: No Have Help at Home?: Yes, there is help at home now At start of therapy session, patient found in bed and with no alarm Pain: Patient has 5/10 pain in back Follow-up for pain: Patient controlled analgesia OBJECTIVE: General Appearance: Supine in bed, NAD, family in room Precautions: IV's: Peripheral line, Catheter, Oxygen and Drains Vital Signs:(*Assess the 3 levels of oxygen saturations both for room air and 02 unless rest on room air is 88% or less). Rest: BP: HR: O2 SAT: Room Air L O2 Ex/Gait/Activity BP: HR: O2 SAT: Room Air L O2 Cool Down BP: HR: O2 SAT: Room Air L O2 Observations: No signs/symptoms of distress with change in position MENTAL STATUS: Alert and oriented times 3 DIRECTION FOLLOWING: Able to follow single step commands 100 % ROM: BLE WFL STRENGTH: BLE WFL SENSATION: unable to assess FUNCTIONAL MOBILITY Not Tested Not Applicable Independent Stand by Assist Minimal Moderate Maximum Dependent Rolling x Scooting x Supine to/from sit x2 Sit to/from Stand x2 Bed to/ chair Observation: use of w/w to stand BALANCE: Sitting Static: fair plus Dynamic: fair Standing Static: fair Dynamic: fair Observation: cues needed for weight shift forward. Use of w/w for support GAIT: Weight Bearing: BLE WBAT Distance: 2 side steps attempted to HOB Device: Wheeled Walker Assistance: Moderate assist of 2 Balance: fair fair endurance Observation: decreased foot clearance, verbal cues and assist needed for lateral weight shift, mobility limited by pain and dizziness ACTIVITY TOLERANCE: Patient's activity tolerance: fair TREATMENT/INTERVENTIONS: evaluation, ROM, strengthening exercises, coordination exercises, bed mobility training, transfer training, gait training, balance activities, monitoring of vitals and cognitive stimulation EDUCATION: While performing PT, Patient was instructed in:Functional mobility training/weight bearing status, Safety awareness/fall precaution and Back surgery education Patient demonstrated Good understanding of instructions given. INFORMED CONSENT TO TREATMENT: Plan of care including recommended therapy, goals and frequency, discussed with patient who understands and agrees to proceed. ASSESSMENT: Patient's functional performance presently limited due to: pain, medical condition, precautions, decreased ROM, strength, endurance, bed mobility, transfers, gait and balance and Patient would benefit from additional Physical Therapy to achieve the following functional goals to enhance independence. Short Term Goals: Goal Formation With patient Patient will perform bed mobility: Stand By Assist Patient will transfer sit to/from stand: Stand By Assist Patient will transfer bed to/from chair: Stand By Assist Patient will ambulate 125 feet with Minimal assist and appropriate AD Alf Goal(s): Patient to discharge to appropriate next level of inpatient care Equipment Issued: gait belt and assistive device Plan: If patient is discharged from the facility, this note serves as a discharge summary if further physical therapy visits did not occur. Following therapy session, patient left in bed, with call light within reach and with family in room Damon Christian PT 11/03/2019 ENGINEER * Mary Partida, OT - 11/03/2019 10:00 AM CST [facility] Occupational Therapy Initial Evaluation Note Patient: Saray Whitten Med Record Number: [id number] Date of : 1960 Age: [age] year old Co-treat with PT Discharge Recommendation: Patient will benefit from intense 3 hour per day multidisciplinary inpatient therapies due to decreased ADLs and functional mobility s/p spine surgery. Frequency: Patient will be scheduled 7x/week while in hospital. Plan: ADL training Adaptive equipment training Functional transfer training Bed mobility Safety awareness Physician Orders: Evaluation and Treat Precautions: Spine Precautions DIAGNOSIS: Patient Active Problem List: Spondylolisthesis at L4-L5 level Lumbosacral radiculopathy at L5 Red blood cell antibody positive Past Medical History: Diagnosis Date ??? Sarcoidosis 1995 no problems ??? SOB (shortness of breath) limited walking due to back SUBJECTIVE: Patient reports independence with ADLs and functional mobility at baseline PATIENT GOALS: To return home Home living: Type of Residence: Private Residence Lives with:: Alone Steps to Enter: 4 Handrails: Outdoor Home Structure: One Story;Basement Primary Bedroom: First Floor Primary Bathroom: First Floor Bathroom : Tub/Shower Combo Equipment At Home: None Prior Function: Mobility: Independent Fallen Within 6 Mos: No Have Help at Home?: Yes, there is help at home now At start of therapy session, patient found in bed and with no alarm. Pain: Patient has 8/10 pain in lower back Follow-up for pain: Patient controlled analgesia OBJECTIVE: General Appearance: 59 y/o female, supine in NAD Precautions: IV's: Peripheral line, Catheter, Oxygen, 911 TELECOMMUNICATOR and Drains Edema: None noted Vital Signs: no s/s observed Cognitive: Alert and oriented x 3, follows 1-step commands 100%. Patient with fair safety awarenessand insight. Perceptual: Intact Upper extremity range of motion: B UE AROM WFL Upper extremity strength: B UE WFL Tone: No abnormal tone noted Coordination: B/L serial opposition intact Sensation: Intact Patient's activity tolerance: fair Comments: Limited by pain FUNCTIONAL MOBILITY Not tested Independent Stand by Assist Minimal Moderate Maximum Dependent Rolling X of 2 Supine to/from sit X of 2 Sit to/from Standing X of 2 Bed to/from chair x Patient stood with moderate assist of 2 and use of w/w, able to take 4-5 lateral steps to HOB with moderate assist of 2 and cues for sequencing and w/w management Balance: Static Sitting: fair Dynamic Sitting: fair minus Static Standing: fair minus Dynamic Standing: poor Activities of Daily Living Feeding: NT Grooming/Bathing: not tested Upper Extremity Dressing: not tested Lower Extremity Dressing: Maximal assist to adjust socks seated EOB Toileting/Transfers: not tested Splint Issued/Checked: none TREATMENT / EDUCATION / EVALUATION: Purpose of Occupational Therapy evaluation explained. While performing mobility and self care, Patient was instructed in: Functional mobility training/weight bearing status, Safety awareness/fall precaution, Discharge plan, Self care training and Use of adaptive equipment Presented to patient who demonstrates Fair understanding of instructions given. INFORMED CONSENT TO TREATMENT: Plan of care including recommended therapy, goals and frequency, as well as potential risks and benefits of treatment/assessment explained to patient. Patient understands and agrees to proceed. ASSESSMENT: Pt continues to benefit from skilled OT to improve independence with activities of daily living, increase strength, endurance, range of motion and decrease pain. Functional performance limited due to: limited activities of daily living, pain, decreased mobilityand decreased safety awareness Nurse and PT contacted regarding patient status and/or discharge plan. Short Term Goals: Patient will perform lower extremity dressing With mod assist Patient will perform supine to sit With mod assist and X 1 Patient will perform sit to stand With mod assist and X 1 Patient will tolerate treatment 20 minutes, with fair endurance and with minimal pain Education: good, safety education and spine precautions Alf Goal: Patient to discharge to appropriate next level of inpatient care If patient is discharged from the facility, this note serves as a discharge summary if further occupational therapy visits did not occur. Following therapy session, patient left in bed, with call light within reach, with family in room and with RN, Bindu aware. Mary Partida OT 11/03/2019 ENGINEER * Sammy Carrero MD - 11/03/2019 8:24 AM CST [facility] Orthopedic Spine Surgery Daily Progress Note Saray Whitten, 59 year old, female : 1960 CSN: [id number] Primary Care Physician: Esperanza Ho MD - Admission Date/Time: 11/01/2019 1:54 PM - Hospital Day: 2 Subjective POD 1 L4-s1 ALIF, PISF L4-s1. Feels ok this AM. Denies pain in legs, unable to tell difference inpreop symptoms. Has not passed gas. Has not been up with therapy. Voiding per dumas. Vitals Temp (24hrs), Av ??F (37.2 ??C), Min:98.8 ??F (37.1 ??C), Max:99.3 ??F (37.4 ??C) BP 136/80 Pulse 91 Temp 98.8 ??F (37.1 ??C) (Oral) Resp 11 Ht 5' 6 (1.676 m) Wt 208 lb (94.3 kg) SpO2 100% BMI 33.57 kg/m2 Labs Recent Labs Component Name 11/03/19 0714 11/02/19 0250 10/22/19 1209 WBC 12.4* 4.7 3.5 HGB 9.5* 12.1 13.5 HCT 30.4* 39.4 43.5 PLTCOUNT 183 205 188 Recent Labs Component Name 10/22/19 1209 INR 1.0 Cultures Microbiology Results (Displays last 21 days for this encounter ONLY) Procedure Component Value - Date/Time CULTURE URINE [[id number]] Collected: 10/22/19 1209 Lab Status: Final result Specimen: Urine Clean Catch Updated: 10/24/19357 Culture Urine 10,000-50,000 CFU/mL urogenital dylon Physical Exam General: no acute distress Back: - Dressing clean, dry, intact Drain output: HVx1: (-, 265) Bilateral Lower Extremity: - Motor:Motor: Knee Extension 5/5 Ankle Dorsiflexion 5/5 Great Toe Extension 5/5 Ankle Plantarflexion 5/5 Sensation: intact to light touch distally in L1-S1 distribution Assessment/Plan Patient is a 59 year old, female s/p L4-S1 ALIF, PISF L4-S1 by Dr. Carrero on 11/02/19 1. Activity: as tolerated 2. Anticoagulation Status: hold chem ppx while HV in 3. Antibiotics: perioperative antibiotics 24 hr 4. Diet: clear liquid diet, advance following flatus/BM 5. Continue current bowel regimen 6. PT/OT 7. Maintain HVx1 continue until <45cc/shfit 8. Daily BMP/CBC. 9. Dumas until mobilization 10. Pain Control 11. OrthoSpine will continue to follow. Please page with any questions or concerns Denny Acosta MD 11/03/2019 8:24 AM Attending Physician Supervisory Note I personally interviewed and examined the patient and agree with the doctor above. Patient more clearly articulates preoperative leg symptoms have resolved. No appetite yet. Sammy Carrero MD ENGINEER * Bhumi Weber RN - 11/03/2019 7:15 AM CST This RN went to the patient's room after receiving phone call that labs were not obtained early this am. nail tech was at bedside obtaining labs and patient stated that she had refused compliance representative dealer labs, told them to come back later. Labs obtained by tech at this time. ENGINEER * Sean Gibson MD - 11/03/2019 5:25 AM CST Vascular Surgery Progress Note Name: Saray Whitten Hospital Day: 2 HPI: 59F with lumbar stenosis/radiculopathy now status-post elective L4-S1 AARTI, L4S1 PSF, L4/5 hemilaminectomy, facetectomy. Subjective: Pt seen and examined at bedside, HD stable, afebrile, normotensive, no acute events overnight. Objective: BP 156/83 Pulse 82 Temp 98.9 ??F (37.2 ??C) (Oral) Resp 11 Ht 5' 6 (1.676 m) Wt 208 lb (94.3 kg) SpO2 100% BMI 33.57 kg/m2 Temp (24hrs), Av.9 ??F (37.2 ??C), Min:98.4 ??F (36.9 ??C), Max:99.3 ??F (37.4 ??C) Intake/Output Summary (Last 24 hours) at 11/03/2019 0526 Last data filed at 11/03/2019 0418 Gross per 24 hour Intake 6750 ml Output 2640 ml Net 4110 ml Exam: Gen: Awake, alert and oriented, NAD Resp: unlabored breathing on room air CV: RRR Abd: Soft, NT/ND Ext: WWP Wounds: CDI Pulses: Palpable Meds: Current Facility-Administered Medications Medication ??? acetaminophen (TYLENOL) tablet 650 mg ??? amitriptyline (ELAVIL) tablet 25 mg ??? ceFAZolin (ANCEF) syringe 2,000 mg ??? docusate sodium (COLACE) capsule 100 mg ??? DULoxetine (CYMBALTA) capsule 30 mg ??? HYDROmorphone (DILAUDID) 0.2 mg/ml 911 TELECOMMUNICATOR ??? lactated ringers infusion ??? naloxone (NARCAN) injection 0.2 mg ??? oxyCODONE (immediate release) (ROXICODONE) tablet 5 mg ??? oxyCODONE-acetaminophen (PERCOCET) 5-325 MG tablet 1 tablet Or ??? oxyCODONE-acetaminophen (PERCOCET) 5-325 MG tablet 2 tablet ??? polyethylene glycol 3350 (MIRALAX) packet 17 g ??? senna-docusate (SENOKOT-S) tablet 1 tablet Labs: @LABSLH@ Recent Labs Component Name 11/02/19 0250 WBC 4.7 HGB 12.1 HCT 39.4 Recent Labs Component Name 11/02/19 1409 11/02/19 0250 NA - - 143 K 4.0 - - CL - - 111* CO2 - - 24 BUN - - 10 CREATININE - - 0.7 - = values in this interval not displayed. Recent Labs Component Name 10/22/19 1209 PT 12.5 PTT 28.7 INR 1.0 Assessment/Plan: 59F with lumbar stenosis/radiculopathy now status-post elective L4-S1 SKILLED NURSING, L4S1 PSF, L4/5 hemilaminectomy, facetectomy. -Wounds CDI, neurovasc intact -H/H stable -Care per ortho -Please contact vascular surgery with any concerns - Patient has been seen and discussed with my in household manager Dr. Hoffmann and attending physician Dr. Mosley. Sean Gibson MD 11/03/2019 5:26 AM ENGINEER * Tasia Villarreal RN - 11/02/2019 10:52 PM CST Problem: Low Fall Risk (Score 7-10) Goal: Patient will remain as independent as possible. Outcome: Ongoing Goal: Patient will have lower fall risk. Outcome: Ongoing Goal: Patient will have lower injury risk. Outcome: Ongoing Goal: Patient will remain safe from falls and injury. Outcome: Ongoing Goal: Patient/family will understand fall prevention measures. Outcome: Ongoing Goal: Patient/family will understand injury reduction measures. Outcome: Ongoing Goal: Patient/family will comply with fall program. Outcome: Ongoing Goal: Patient/family verbalize fall prevention strategies to implement after discharge. Outcome: Ongoing ENGINEER * Tasia Villarreal RN - 11/02/2019 8:34 PM CST Pt reporting uncontrolled level 10 pain to RN. Pt is tearful and restless. RN paged ortho spine andis awaiting response. Will continue to monitor. ENGINEER * Sammy Carrero MD - 11/02/2019 5:16 PM CST [facility] Orthopedic Spine Surgery Daily Progress Note Saray Whitten, 59 year old, female : 1960 CSN: [id number] Primary Care Physician: Esperanza Ho MD - Admission Date/Time: 11/01/2019 1:54 PM - Hospital Day: 1 Subjective Resting comfortably in PACU at this time Vitals Temp (24hrs), Av.3 ??F (36.8 ??C), Min:97.4 ??F (36.3 ??C), Max:99.3 ??F (37.4 ??C) BP 170/80 Pulse 105 Temp 99.3 ??F (37.4 ??C) (Oral) Resp 18 Ht 5' 6 (1.676 m) Wt 208 lb (94.3 kg) SpO2 100% BMI 33.57 kg/m2 Labs Recent Labs Component Name 11/02/19 0250 10/22/19 1209 WBC 4.7 3.5 HGB 12.1 13.5 HCT 39.4 43.5 PLTCOUNT 205 188 Recent Labs Component Name 10/22/19 1209 INR 1.0 Cultures Microbiology Results (Displays last 21 days for this encounter ONLY) Procedure Component Value - Date/Time CULTURE URINE [[id number]] Collected: 10/22/191208 Lab Status: Final result Specimen: Urine Clean Catch Updated: 10/24/19357 Culture Urine 10,000-50,000 CFU/mL urogenital dylon Physical Exam General: no acute distress Back: - Dressing clean, dry, intact Drain output: HVx1 Bilateral Lower Extremity: - Motor: wiggles toes - Sensation: intact to light touch distally - 2+ AT, DP, PT pulses in right foot, toes warm and well perfused - unable to palpate PT pulse in left foot, 2+ DP, AT, toes warm and well perfused Assessment/Plan Patient is a 59 year old, female s/p L4-S1 ALIF, PSIF L4-S1 by Dr. Carrero on 11/02/19 1. Activity: as tolerated 2. Anticoagulation Status: no chemical dvt ppx while drain in 3. Antibiotics: perioperative antibiotics 4. Wound care: continue dressing 5. Diet: clear liquid diet, advance as tolerated 6. Continue bowel regimen 7. PT/OT 8. HVx1 continue until <45cc/shfit 9. Pain Control 10. OrthoSpine will continue to follow. Please page with any questions or concerns Julien Stern MD 11/02/2019 5:17 PM Attending Physician Supervisory Note I personally interviewed and examined the patient and agree with the doctor above. Sammy Carrero MD ENGINEER * Gloria Adams RN - 11/02/2019 12:25 PM CST A Chart Review has been conducted by Case Management. Anticipated level of care at discharge: Acute Rehab Facility, Home Health Care Discharge Plan: Patient with history of lumbar spondylosis, spondylolisthesis with lumbar radiculopathy and neurogenic claudication admitted for scheduled for L4-S1 anterior lumbar interbody fusion, posterior instrumented fusion L4-S1. Patient currently in OR at time of chart review. Will await PT/OT evaluations and recommendations following surgery. Basic Needs Assessment (BNA) Score: 3 Anticipated Discharge Date: 11/07/19 PCP: Esperanza Ho MD Per nursing assessments: Oriented x4 Transportation at discharge: Family Transportation (who): Family Plater Apprentice/Support: Zahira Jones (sister) [phone] Plater Apprentice person: Home/Functional Status: Functional and Cognitive Status Is person deaf or have serious hearing difficulty?: No Is person blind or have serious difficulty seeing?: No Does person have serious difficulty walking/climbing stairs?: No Does person have difficulty dressing/bathing?: No Does person have difficulty doing errands alone?: No Does person have difficulty concentrating/remembering/making decisions?: No Equipment with patient: None Assistive Devices: None ?. Will continue to follow. For any questions or needs please contact: Senior [employer] Developer Name/Phone number: Gloria Adams RN BSN Case Management [phone] ENGINEER * Sammy Carrero MD - 11/02/2019 6:57 AM CST [facility] Orthopedic Spine Surgery Daily Progress Note Saray Whitten, 59 year old, female : 1960 CSN: [id number] Primary Care Physician: Esperanza Ho MD - Admission Date/Time: 11/01/2019 1:54 PM - Hospital Day: 1 Subjective Patient seen and examined this AM on rounds. No acute events overnight. Ready for OR today Vitals Temp (24hrs), Av.1 ??F (36.7 ??C), Min:97.4 ??F (36.3 ??C), Max:98.4 ??F (36.9 ??C) BP 162/83 Pulse 86 Temp 98.4 ??F (36.9 ??C) (Oral) Resp 18 Ht 5' 6 (1.676 m) Wt 208 lb (94.3 kg) SpO2 97% BMI 33.57 kg/m2 Labs Recent Labs Component Name 11/02/19 0250 10/22/19 1209 WBC 4.7 3.5 HGB 12.1 13.5 HCT 39.4 43.5 PLTCOUNT 205 188 Recent Labs Component Name 10/22/19 1209 INR 1.0 Cultures Microbiology Results (Displays last 21 days for this encounter ONLY) Procedure Component Value - Date/Time CULTURE URINE [[id number]] Collected: 10/22/19 1209 Lab Status: Final result Specimen: Urine Clean Catch Updated: 10/24/19357 Culture Urine 10,000-50,000 CFU/mL urogenital dylon Physical Exam General: Awake, cooperative, in no acute distress. Back: -Tenderness to palpation: absent Bilateral Upper Extremity: - Motor: Shoulder Abduction 5/5 Elbow Extension 5/5 Elbow Flexion 5/5 Wrist Extension 5/5 Wrist Flexion 5/5 Finger Flexion 5/5 Finger Abduction 5/5 - Sensory: intact to light touch in C5-T1 distribution Bilateral Lower Extremity: - Motor: Hip Flexion 5/5 Knee Flexion 5/5 Knee Extension 5/5 Ankle Dorsiflexion 5/5 Great Toe Extension 5/5 Ankle Plantarflexion 5/5 - Sensation: intact to light touch distally in L1-S1 distribution Assessment/Plan Patient is a 59 year old, female with lumbar stenosis, neurogenic claudication 1. Activity: as tolerated 2. Diet: NPO 3. Pain Control 4. OR today for L4-S1 anterior lumbar interbody fusion, posterior instrumentation L4-S1 with Dr. Carrero and Dr. Blackwood 5. OrthoSpine will continue to follow. Please page with any questions or concerns Julien Stern MD 11/02/2019 6:58 AM Attending Physician Supervisory Note I personally interviewed and examined the patient and agree with the doctor above. Sammy Carrero MD ENGINEER * Ivanna Godwin RN - 11/01/2019 2:23 PM CST Problem: Low Fall Risk (Score 7-10) Goal: Patient will remain as independent as possible. Outcome: Ongoing Goal: Patient will have lower fall risk. Outcome: Ongoing Goal: Patient will have lower injury risk. Outcome: Ongoing Goal: Patient will remain safe from falls and injury. Outcome: Ongoing Goal: Patient/family will understand fall prevention measures. Outcome: Ongoing Goal: Patient/family will understand injury reduction measures. Outcome: Ongoing Goal: Patient/family will comply with fall program. Outcome: Ongoing Goal: Patient/family verbalize fall prevention strategies to implement after discharge. Outcome: Ongoing ENGINEER * Ivanna Godwin RN - 11/01/2019 2:15 PM CST Called orthospine to let them know pt has arrived and receive orders. ENGINEER documented in this encounter H&P Notes * Sammy Carrero MD - 11/01/2019 3:28 PM CST [facility] Orthopedic Spine Surgery Consultation Note Saray Whitten, 59 year old, female : 1960 CSN: [id number] Primary Care Physician: Esperanza Ho MD Admission Date/Time: 11/01/2019 1:54 PM Today's Date/Time: 11/01/2019 3:28 PM Chief Complaint No chief complaint on file. HPI Saray Whitten is a 59 year old female who presented to [facility] on 11/01/2019 for L4/5, L5/S1 anterior lumbar interbody fusion, L4-S1 posterior instrumented spinal fusion currently scheduled on 11/01/19. She was a direct admit to be able to obtain a crossmatch for potential blood transfusions as she has a history of anti-bodies. She presents today unchanged from her last clinic visit on 10/26/19 Vitals Blood pressure 121/77, pulse 80, temperature 98.4 ??F (36.9 ??C), temperature source Oral, resp. rate 17, height 5' 6 (1.676 m), weight 208 lb (94.3 kg), SpO2 95 %, not currently . Labs No results found for this or any previous visit (from the past 24 hour(s)). PMHx Past Medical History: Diagnosis Date ??? Sarcoidosis 1995 no problems ??? SOB (shortness of breath) limited walking due to back PSHx Past Surgical History: Procedure Laterality Date ??? COLONOSCOPY ??? OTHER SURGERY left breast tumor removed age 12 Social Hx Social History Tobacco Use ??? Smoking status: Former Smoker ??? Smokeless tobacco: Never Used ??? Tobacco comment: 1/2 pack week Substance Use Topics ??? Alcohol use: Not Currently Family Hx family history is not on file. Allergies No Known Allergies Medications Current Facility-Administered Medications Medication ??? amitriptyline (ELAVIL) tablet 25 mg ??? DULoxetine (CYMBALTA) capsule 30 mg ??? [START ON 11/02/2019] lactated ringers infusion Review of Systems A 12 point review of systems was performed and was negative except for: what was mentioned in the HPI Physical Exam General: Awake, cooperative, in no acute distress. CV: Regular rate. Pulm: No audible wheezing, no use of accessory muscles Abd: soft, nontender, nondistended Musculoskeletal: Bilateral Upper Extremity: - Motor: Shoulder Abduction 5/5 Elbow Extension 5/5 Elbow Flexion 5/5 Wrist Extension 5/5 Wrist Flexion 5/5 Finger Flexion 5/5 Finger Abduction 5/5 - Sensory: intact to light touch distally in C5-T1 distribution - Souza's sign is negative. - Reflexes: Biceps: Normal Triceps: Normal BR: Normal Bilateral Lower Extremity: - Motor: Hip Flexion 5/5 Knee Flexion 5/5 Knee Extension 5/5 Ankle Dorsiflexion 5/5 Great Toe Extension 5/5 Ankle Plantarflexion 5/5 - Sensation: intact to light touch distally in L1-S1 distribution - Straight Leg Raise: negative bilaterally - Clonus: absent - Reflexes: Knee Jerk: Normal Achilles: Normal Babinski: down going Imaging - MRI lumbar spine demonstrates L4-L5 central stenosis secondary to facet hypertrophy and L5/S1 disk desiccation with foraminal stenosis Assessment/Plan: 59 year old female with lumbar spondylosis, spondylolisthesis with lumbar radiculopathy and neurogenic claudication 1. Activity: As tolerated 2. Anticoagulation Status: Hold DVT chemoprophylaxis at this time 3. Diet: NPO at midnight 4. Pain Control 5. PT/OT when able 6. To OR tomorrow, 11/02/19, for L4-S1 anterior lumbar interbody fusion, posterior instrumented fusion L4-S1 to be performed by Dr. Carrero with Dr. Blackwood as co-surgeon 7. The risks and benefits of operative intervention were explained to the patient in a straightforward manner. All non-surgical treatment options were also explained to the patient. All questions were answered and explained in manner that was understood by the patient. The patient is aware of the risk and benefits of surgery, which include, but are not limited to: infection, bleeding, blood clots, damage to tendon, vessel, or nerve, and anesthesia complications, including . The patient agreed to proceed with surgical intervention. Informed consent was signed and obtained. 8. Patient was counseled to the nature of their diagnosis and demonstrated understanding. Questionssolicited and answered. 9. Will update plan with any changes. Julien Stern MD 11/01/2019 3:28 PM Attending Physician Supervisory Note I personally interviewed and examined the patient and agree with the doctor above. Sammy Carrero MD ENGINEER documented in this encounter Consult Notes * Mariaelena Terrell RN - 11/12/2019 6:27 PM CDT RECEIVED REFERRAL FOR HOME CARE WITH DR CARRERO FOLLOWING PER PROTOCOL. HAVE SPOKEN WITH PATIENT TO EXPLAIN HOME CARE & VERIFY DEMOGRAPHICS. PATIENT STATES SHE IS AGREEABLE TO [facility] PROVIDING [place] [facility]. PATIENT HAS BEEN DISCHARGED, ORTHO ORDERS ENTERED, & SOC ORTHO VISIT GENERATED. REFERRAL IS NOW COMPLETE. ROCIO TERRELL RN ADM COORDINATOR [facility] documented in this encounter OR Notes * Operative - Sammy Carrero MD - 11/03/2019 11:53 AM CST NAME: SARAY WHITTEN : 1960 AGE: 59 PROC DATE: 11/02/2019 SEX: F SURGEON: Sammy Carrero MD PREOPERATIVE DIAGNOSES: 1. Lumbar spondylolisthesis. 2. Left lateral recess lumbar stenosis with resultant lumbar radiculopathy, L4-5 and L5-S1. POSTOPERATIVE DIAGNOSES: 1. Lumbar spondylolisthesis. 2. Left lateral recess lumbar stenosis with resultant lumbar radiculopathy, L4-5 and L5-S1. PROCEDURES: 1. Anterior lumbar interbody fusion L4-5 and L5-S1, Dr. Cecilia Blackwood cosurgegoyo. 2. Insertion of interbody fusion device, two levels, PEEK Perimeter cage. 3. Left L4 decompressive hemilaminectomy and medial facetectomy. 4. L5 decompressive hemilaminectomy and medial facetectomy. 5. Posterior instrumentation, L4-S1. 6. Posterolateral arthrodesis L4-S1 with local autograft. SURGEON: Sammy Carrero M.D. BABCOCK TESTER: Julien Stern M.D., orthopedic surgery resident COSURGEON FOR ANTERIOR PROCEDURE: Cecilia Blackwood M.D. ANESTHESIA: General via endotracheal tube. ESTIMATED BLOOD LOSS: 500 mL. FLUID REPLACEMENT: Crystalloid. COMPLICATIONS: No complications. OPERATIVE FINDINGS: Dynamic listhesis of L4-5 with foraminal stenosis and lateral recess stenosis at L4-5 and L5-S1. INDICATIONS: The patient is a 59-year-old female with debilitating left leg and low back pain. Symptoms were recalcitrant to nonoperative management including physical therapy and epidural steroid injections. Imaging studies including standing radiographs, CT scan and MRI demonstrated spondylolisthesis at L4-5 with reduction in the supine position indicating a dynamic listhesis with foraminal stenosis at L5-S1, largely secondary to disc space collapse. Given the constellation of findings and the patient's persistent debilitating symptoms, the patient was apprised of risks and benefits of operative intervention and wished to proceed with procedures above. DESCRIPTION OF PROCEDURE: After informed consent was obtained, the patient was taken to the operating room and a general anesthetic was administered via endotracheal tube intubation, which was accomplished without difficulty. After ensuring adequate analgesia and anesthesia, the patient was positioned, prepped and draped in the usual sterile fashion in the supine position on an OSI flat top framewith a bump underneath her pelvis. Following positioning, prepping and draping, a standard surgicaltimeout for confirmation of patient, procedure, levels, antibiotics, allergies, equipment and implants was conducted, after which an expert exposure of the ventral lumbar spine was performed by Dr. Josy davis. Please see her separately dictated note for further details. The initial level addressed wasL5-S1 while Dr. Blackwood retracted vascular structures and protected them, I proceeded with ventral annulectomy of L5-S1 using monopolar electrocautery, pituitary rongeurs and subsequent resection of the disc including cartilaginous endplate at the caudal aspect of L5 and rostral aspect of S1 using Nichole elevators and curettes. Following the initial disc resection, I used Kerrison rongeurs, pituitary rongeurs and high-speed bur to resect the dorsal annulus and prepare the endplates. The ventral lip of L5 was removed with the 5 mm Kerrison. Sequential trials resulted in a 12 mm x 12-degree implant being chosen. A PEEK Perimeter implant was used, packed with crushed cancellous allograft with 30mL of crushed cancellous allograft mixed with morcellized small BMP kit. This was packed into the implant and subsequently into the interspace with fluoroscopic imaging in AP and lateral views confirming implant placement and alignment as well as shinto of lordosis. The available interspace was then packed with crushed cancellous allograft and bone morphogenetic protein effecting arthrodesisat L5-S1. A similar process was carried out at L4-5 with mobilization of the vasculature requiring attention to the iliolumbar veins requiring multiple areas of ligation and mobilization per Dr. Blackwood's separately dictated note. Again, a 12 mm x 12-degree implant was placed with anatomic reduction of the patient's spondylolisthesis. Dr. Blackwood then proceeded to close the exposure per her separately dictated note and we then repositioned the patient in the prone position on a Kofi frame jackie 6-document specialist configuration with arm boards, after which she was positioned, prepped and draped in theusual sterile fashion exposing the lumbar spine. Given the patient's body habitus, we ensured a more caudal field and then subsequently had a second timeout for confirmation of patient, procedure, levels, antibiotics, allergies, equipment and implants. We proceeded with a midline incision and subsequent elevation of muscular flap up off of the lamina and transverse processes L4 to the sacral ala.Marked facet hypertrophy and synovial cyst formation was identified at L4-5 and to a lesser extent at L5-S1. Once exposure was complete, a fiducial was placed on spinous process of L5, after which O-arm was brought in for image data acquisition for use with the Viamedia navigation system. Solera 5.5system was used. A 6.5 x 40 mm screws were placed bilaterally at L4 and L5 and subsequently a 7.5 x40 mm screws placed at S1. Secure purchase was achieved with all screws. All screws were placed single pass without requiring operative revision or redirection. Following implant placement, attentionwas paid to decompression of the L5 nerve root transiting at L4-5 and then foraminally at L5-S1. This was accomplished with a high-speed bur used to cut the superior articular process from L4 on the left side, allowing direct access to the superior articular process of L5. This was similarly treated with great care to resect the medial portion ensuring decompression of the transiting nerve root. Meticulous hemostasis was achieved with bipolar electrocautery and FloSeal. Attention was then paid to a similar decompression at L5-S1, again focusing on the foraminal decompression with resection ofthe inferior articular process of L5, followed by superior articular process of S1. No areas of resi dual compression were identified. Again, meticulous hemostasis achieved with combination of electrocautery and FloSeal. At this point, two cobalt chrome rods were contoured and seated effecting further lordotic correction at L4-5 and L5- S1. Fluoroscopic imaging in AP and lateral views confirmed implant placement, alignment and shinto of anatomic lordosis. Set screws were all counter torqued appropriately. Wound was copiously irrigated. Transverse process of L4, L5 and sacral ala were decorticated and a mixture of harvested local autograft processed through a bone mill, the remaining crushed cancellous allograft approximately 5 mL with small amount of the bone morphogenetic protein and 2 grams of vancomycin powder were placed posterolaterally effecting arthrodesis L4-S1. Fascia was then closed with #1 Vicryl suture in a [id number] interrupted fashion over a 1/8th-inch Hemovac drain. Wound was again irrigated and Pedro's fascia closed with running 0 Vicryl suture and skin closed with 2-0 Vicryl and running 4-0 Monocryl. The wound was dressed with Xeroform and 4 x 4 gauze. The patient tolerated the procedure well. Sponge and needle counts were correct at the end of the case. There were no complications. POSTOPERATIVE PLAN: The patient will be admitted for IV antibiotics and pain control. We will plan on a clear liquid diet, mobilization as tolerated and discontinuation of the drain when less than 45mL per shift. We will plan on a brace for comfort once she has been mobilized and standing radiographs before discharge. Sammy Carrero MD SCOOTER/[id number] Doc ID: [id number] Voice Job ID: [id number] ENGINEER * Operative - Cecilia Blackwood MD - 11/02/2019 1:18 PM CST NAME: SARAY WHITTEN : 1960 AGE: 59 PROC DATE: 11/02/2019 SEX: F SURGEON: Cecilia Blackwood MD PREOPERATIVE DIAGNOSIS: Need for anterior fusion with spondylolisthesis. POSTOPERATIVE DIAGNOSIS: same PROCEDURE: L4/5 L5/S1 ANTERIOR LUMBAR INTERBODY FUSION, - Insertion of interbody device Modifier 22 Letter for Increased Procedural Services: This surgical procedure was more technically demanding and significantly more time consuming than as described by the CPT procedure codes The surgery I performed was much more demanding and time-consuming than similar cases on account ofthe following reasons: 1. Extensive iliolumbar veins requiring individual ligation for mobilization of the common iliac veins for the exposure I estimate, all the above reasons make this case approximately 200% more work than described by CPTcodes. Hence I am requesting 200% elevation of my normal fees for this surgery. Please feel free to contact me if you have any questions. Sincerely, COSURGEONS: Cecilia Blackwood M.D. and Sammy Carrero M.D. INDICATIONS: Please see the orthopedic surgery note as to why this was necessary. DESCRIPTION OF PROCEDURE: The patient was brought to the operating room where she was given generalendotracheal anesthesia. She was prepped and draped in a sterile fashion. Incision was made in the left paramedian position and extended down to subcutaneous tissues and the anterior rectus sheath was divided. Rectus was retracted laterally allowing development of a retroperitoneal plane. The 5-1 interspace was addressed initially with ligation of the median sacral artery and vein and exposure ofthe disc space. Omni-Tract retractor was placed and the disc was then removed in entirety. Dr. Carrero selected cages to place in this position. Please see his operative note for technical details of this portion. Once this was done, attention was turned to the lateral aspect of the wound on the left side, iliac vein was identified, there were 4 iliolumbars that were noted to be going into the retroperitoneum which tethered the vein quite extensively. These were ligated using suture ligation, sothat when they were retracted, there was less chance of bleeding and full anterior exposure could be obtained. This was done for all 4 of these, which then allowed wide mobilization so that we could expose the L4-5 disc space. This was confirmed using fluoroscopy. This disc material again was also removed in its entirety. With the retractors in place, pulses were absent at one very brief period, we were able to get those back very quickly. By manipulating the retractors, cage was placed and again please see Dr. Carrero's note for technical details of this portion of the procedure. Once this was done, fluoroscopy was utilized to confirm that there were no sponges and no instruments left within the wound. The sponge and needle count were correct at this portion. Anterior rectus sheath was closed using double looped PDS and then 2-0 Vicryl on the fat followed by 3-0 Vicryl in the deep subcutaneous and then a 4-0 running subcuticular. The patient was then taken and flipped prone onto another operating room table for the posterior portion of the procedure. MD COREY Yarbrough/[id number] Doc ID: [id number] Voice Job ID: [id number] ENGINEER * Brief Op Note - Cecilia Blackwood MD - 11/02/2019 8:16 AM CST Brief Op Note Procedure: L4/5 L5/S1 ANTERIOR LUMBAR INTERBODY FUSION Patient Name: Saray Teague Whitten Date of Service: 11/02/2019 Pre-Op Diagnosis: LUMBAR STENOSIS, LUMBAR SPONDYLOLISTHESIS, LUMBAR RADICULOPATHY Post-Op Diagnosis: same CO SURGEONS: katia carrero and cecilia blackwood Client Support Coordinator(s): bisi stern Anesthesia Type: general ETT Complications: none Findings: extensive iliolumbar veins requiring ligation EBL: 100 mL Urine Output : 550 mL IV Fluid Intake: not totalled Drains: * No LDAs found * Specimen(s): disk material Cecilia Blackwood MD ENGINEER * Brief Op Note - Sammy Carrero MD - 11/02/2019 8:16 AM CST Brief Op Note Patient Name: Saray Whitten Date of Service: 11/02/2019 Pre-Op Diagnosis: LUMBAR STENOSIS, LUMBAR SPONDYLOLISTHESIS, LUMBAR RADICULOPATHY Post-Op Diagnosis: Same Procedure: - L4/5 L5/S1 ANTERIOR LUMBAR INTERBODY FUSION, - Insertion of interbody device - L4-S1 POSTERIOR INTRUMENTED SPINAL FUSION, - LEFT L4, L5 decompressive hemilaminectomy - Left L4, L5 decompressive facetectomy - Posterolateral fusion L4-S1 Surgeon(s) and Role: * Sammy Carrero MD - Primary * Julien Stern MD - Resident - Assisting * Cecilia Blackwood MD - Surgeon Second Client Support Coordinator(s): n/a Anesthesia Type: general ETT Complications: none Findings: see operative report EBL: 500 mL Urine Output : 850 mL IV Fluid Intake: see anesthesia record Drains: Drain 1 Round Accordian Lower Back (Active) Specimen(s): n/a Plan: - admit to floor - Clear liquid diet, advance as tolerated - HVx1, continue until <45cc/shift - No chemical dvt ppx while drain in - PT/OT - bowel regimen - pain control - perioperative antbiotics Julien Stern MD Attending Physician Supervisory Note I was present and performed procedure as above. Dict#[id number]. Brace for comfort once mobilized. Sammy Carrero MD ENGINEER documented in this encounter Miscellaneous Notes * Coding Query - Meena Machado MD - 11/05/2019 1:25 PM CST DOCUMENTATION CLARIFICATION REQUEST TO: Dr. Ryley Machado FROM: Jessica Salcedo, MSN, RN, CDS Email: [email or web address] Please clarify and document if the patient is being treated for - Acute posthemorrhagic anemia - Other explanation of clinical findings - Unable to determine (no explanation for clinical findings) The medical record reflects the following clinical evidence: Clinical Indicators: Hgb from 12.1 -> 8.9 Op Note: EBL: 500 mL Risk Factor(s): Spinal surgery Treatment: serial CBC monitoring Please document your clinical opinion in the progress notes and discharge summary including the definitive and/or presumptive diagnosis, (suspected or probable), related to the above clinical findings. Please include clinical findings supporting your diagnosis. Patient being treated for acute blood loss anemia after surgery. We will continue to monitor with serial CBCs and transfuse for a Hgb <7. Meena Machado MD 11/06/2019 5:11 AM ENGINEER documented in this encounter Plan of Treatment Not on file documented as of this encounter Procedures Procedure Name Priority Date/Time Associated Diagnosis Comments BASIC METABOLIC PANEL (CALCIUM TOTAL) AM Draw 11/12/2019 2:57 AM CDT CBC W/O DIFFERENTIAL AM Draw 11/12/2019 2:56 AM CDT CBC W/O DIFFERENTIAL AM Draw 11/11/2019 11:23 AM CDT BASIC METABOLIC PANEL (CALCIUM TOTAL) AM Draw 11/11/2019 4:09 AM CDT CBC W/O DIFFERENTIAL AM Draw 11/10/2019 2:49 AM RFID ENGINEER BASIC METABOLIC PANEL (CALCIUM TOTAL) AM Draw 11/10/2019 2:49 AM RFID ENGINEER CBC W/O DIFFERENTIAL AM Draw 11/09/2019 2:48 AM RFID ENGINEER BASIC METABOLIC PANEL (CALCIUM TOTAL) AM Draw 11/09/2019 2:48 AM RFID ENGINEER CBC W/O DIFFERENTIAL AM Draw 11/08/2019 2:49 AM RFID ENGINEER BASIC METABOLIC PANEL (CALCIUM TOTAL) AM Draw 11/08/2019 2:49 AM RFID ENGINEER XR LUMBAR SPINE 2 OR 3VW Routine 11/07/2019 2:21 PM RFID ENGINEER Lumbosacral radiculopathy at L5 CBC W/O DIFFERENTIAL AM Draw 11/07/2019 2:59 AM RFID ENGINEER BASIC METABOLIC PANEL (CALCIUM TOTAL) AM Draw 11/07/2019 2:59 AM RFID ENGINEER CBC W/O DIFFERENTIAL AM Draw 11/06/2019 2:47 AM RFID ENGINEER BASIC METABOLIC PANEL (CALCIUM TOTAL) AM Draw 11/06/2019 2:47 AM RFID ENGINEER CBC W/O DIFFERENTIAL AM Draw 11/05/2019 3:25 AM RFID ENGINEER BASIC METABOLIC PANEL (CALCIUM TOTAL) AM Draw 11/05/2019 3:25 AM RFID ENGINEER CBC W/O DIFFERENTIAL AM Draw 11/04/2019 2:08 AM RFID ENGINEER BASIC METABOLIC PANEL (CALCIUM TOTAL) AM Draw 11/04/2019 2:08 AM RFID ENGINEER CBC W/O DIFFERENTIAL AM Draw 11/03/2019 7:14 AM RFID ENGINEER BASIC METABOLIC PANEL (CALCIUM TOTAL) AM Draw 11/03/2019 7:14 AM RFID ENGINEER FL OARM SURGERY Routine 11/02/2019 3:19 PM RFID ENGINEER Lumbosacral radiculopathy at L5 FL LEVI SURGERY Routine 11/02/2019 3:02 PM RFID ENGINEER Lumbosacral radiculopathy at L5 BLOOD GASES ART COMPLETE [facility] OR STAT 11/02/2019 2:09 PM RFID ENGINEER Lumbosacral radiculopathy at L5 Spondylolisthesis at L4-L5 level BLOOD GASES ART COMPLETE [facility] OR STAT 11/02/2019 12:31 PM RFID ENGINEER Lumbosacral radiculopathy at L5 Spondylolisthesis at L4-L5 level BLOOD GASES ART COMPLETE [facility] OR STAT 11/02/2019 10:58 AM RFID ENGINEER Lumbosacral radiculopathy at L5 FUSION TRANSFORAMINAL LUMBAR INTERBODY (TLIF) 11/02/2019 8:16 AM RFID ENGINEER Diagnosis unknown Special Needs [id number] KOFI TABLE- FLAT TOP 1ST,TPS POWER, MEDTRONIC IMPLANTS *. Brielle will be assisting Dr. Carrero* FUSION ANTERIOR LUMBAR INTERBODY (ALIF) 11/02/2019 8:16 AM RFID ENGINEER Diagnosis unknown Special Needs [id number] KOFI TABLE- FLAT TOP 1ST,TPS POWER, MEDTRONIC IMPLANTS *. Brielle will be assisting Dr. Carrero* CBC W/O DIFFERENTIAL AM Draw 11/02/2019 2:50 AM RFID ENGINEER BASIC METABOLIC PANEL (CALCIUM TOTAL) AM Draw 11/02/2019 2:50 AM RFID ENGINEER PREPARE RBC LEUKOREDUCED UNIT STAT 11/01/2019 3:59 PM RFID ENGINEER Spondylolisthesis at L4-L5 level Lumbosacral radiculopathy at L5 TYPE + SCREEN PANEL Routine 11/01/2019 3 :51 PM RFID ENGINEER Spondylolisthesis at L4-L5 level COOKIE DIRECT Routine 11/01/2019 3:51 PM RFID ENGINEER Spondylolisthesis at L4-L5 level ANTIBODY IDENTIFICATION Routine 11/01/2019 3:51 PM RFID ENGINEER Spondylolisthesis at L4-L5 level documented in this encounter Results * BASIC METABOLIC PANEL (CALCIUM TOTAL) (11/12/2019 2:57 AM CDT) BUN 7 7 - 26 mg/dL 11/12/2019 3:36 AM [facility] Creatinine 0.7 0.6 - 1.2 mg/dL 11/12/2019 3:36 AM [facility] Sodium 140 136 - 145 mmol/L 11/12/2019 3:36 AM [facility] Potassium 4.1 3.5 - 4.5 mmol/L 11/12/2019 3:36 AM [facility] Chloride 105 98 - 107 mmol/L 11/12/2019 3:36 AM [facility] CO2 25 22 - 29 mmol/L 11/12/2019 3:36 AM CDT [facility] Glucose 102 70 - 115 mg/dL 11/12/2019 3:36 AM [facility] Calcium 8.5 8.4 - 10.2 mg/dL 11/12/2019 3:36 AM [facility] Anion Gap 14 8 - 18 11/12/2019 3:36 AM [facility] BUN/Creatinine Ratio 10 7 - 23 11/12/2019 3:36 AM [facility] Osmolality Calculated 288 270 - 300 mOsm/kg 11/12/2019 3:36 AM [facility] eGFR >60 >60 mL/min/1.7 3 m2 11/12/2019 3:36 AM [facility] Blood BLOOD SPECIMEN / Unknown Lab Venipuncture / Unknown 11/12/2019 2:57 AM CDT 11/12/2019 3:10 AM CDT Julien Stern Jr., MD LAB - CHEMISTR Y ORDERABLES Performing Organization Address [facility] Co de Phone Number [address] [phone] * (ABNORMAL) CBC W/O DIFFERENTIAL (11/12/2019 2:56 AM CDT) WBC 7.0 3.5 - 10.5 10? 3 /uL 11/12/2019 3:19 AM [facility] RBC 3.10(L) 3.90 - 5.00 10? 6 /uL 11/12/2019 3:19 AM [facility] Hemoglobin 8.1(L) 12.0 - 15.5 g/dL 11/12/2019 3:19 AM [facility] Hematocrit 27.0(L) 35.0 - 45.0 % 11/12/2019 3:19 AM [facility] MCV 87.1 81.0 - 97.0 fL 11/12/2019 3:19 AM [facility] MCH 26.1(L) 28.0 - 34.0 pg 11/12/2019 3:19 AM [facility] MCHC 30.0(L) 32.0 - 36.0 g/dL 11/12/2019 3:19 AM [facility] Platelet Count 338 150 - 400 10? 3 /uL 11/12/2019 3:19 AM [facility] RDW-SD 46.5 36.0 - 50.0 fL 11/12/2019 3:19 AM [facility] [facility] RDW-CV 14.5 11.2 - 14.8 % 11/12/2019 3:19 AM [facility] MPV 9.1(L) 9.3 - 12.8 fL 11/12/2019 3:19 AM [facility] nRBC Absolute 0.00 0 10? 3 /uL 11/12/2019 3:19 AM [facility] nRBC Auto 0.0 0 /100 WBC 11/12/2019 3:19 AM [facility] Blood BLOOD SPECIMEN / Unknown Lab Venipuncture / Unknown 11/12/2019 2:56 AM CDT 11/12/2019 3:10 AM CDT Julien Stern Jr., MD LAB - HEMATOLO GY ORDERABLES [address] [phone] * (ABNORMAL) CBC W/O DIFFERENTIAL (11/11/2019 11:23 AM CDT) WBC 6.9 3.5 - 10.5 10? 3 /uL 11/11/2019 12:00 PM [facility] RBC 3.23(L) 3.90 - 5.00 10? 6 /uL 11/11/2019 12:00 PM [facility] Hemoglobin 8.7(L) 12.0 - 15.5 g/dL 11/11/2019 12:00 PM [facility] Hematocrit 28.5(L) 35.0 - 45.0 % 11/11/2019 12:00 PM [facility] MCV 88.2 81.0 - 97.0 fL 11/11/2019 12:00 PM [facility] MCH 26.9(L) 28.0 - 34.0 pg 11/11/2019 12:00 PM [facility] MCHC 30.5(L) 32.0 - 36.0 g/dL 11/11/2019 12:00 PM [facility] Platelet Count 344 150 - 400 10? 3 /uL 11/11/2019 12:00 PM [facility] RDW-SD 46.6 36.0 - 50.0 fL 11/11/2019 12:00 PM [facility] RDW-CV 14.5 11.2 - 14.8 % 11/11/2019 12:00 PM [facility] MPV 9.5 9.3 - 12.8 fL 11/11/2019 12:00 PM [facility] nRBC Absolute 0.00 0 10? 3 /uL 11/11/2019 12:00 PM [facility] nRBC Auto 0.0 0 /100 WBC 11/11/2019 12:00 PM [facility] Blood BLOOD SPECIMEN / Unknown Lab Venipuncture / Unknown 11/11/2019 11:23 AM CDT 11/11/2019 11:57 AM CDT Julien Stern Jr., MD LAB - HEMATOLO GY ORDERABLES [address] [phone] * (ABNORMAL) BASIC METABOLIC PANEL (CALCIUM TOTAL) (11/11/2019 4:09 AM CDT) BUN 6(L) 7 - 26 mg/dL 11/11/2019 4:39 AM [facility] Creatinine 0.7 0.6 - 1.2 mg/dL 11/11/2019 4:39 AM [facility] Sodium 142 136 - 145 mmol/L 11/11/2019 4:39 AM [facility] Potassium 4.5 3.5 - 4.5 mmol/L 11/11/2019 4:39 AM [facility] Chloride 107 98 - 107 mmol/L 11/11/2019 4:39 AM [facility] CO2 23 22 - 29 mmol/L 11/11/2019 4:39 AM [facility] Glucose 99 70 - 115 mg/dL 11/11/2019 4:39 AM [facility] Calcium 8.2(L) 8.4 - 10.2 mg/dL 11/11/2019 4:39 AM [facility] Anion Gap 17 8 - 18 11/11/2019 4:39 AM [facility] BUN/Creatinine Ratio 9 7 - 23 11/11/2019 4:39 AM [facility] Osmolality Calculated 292 270 - 300 mOsm/kg 11/11/2019 4:39 AM [facility] eGFR >60 >60 mL/min/1.7 3 m2 11/11/2019 4:39 AM [facility] Blood BLOOD SPECIMEN / Unknown Lab Venipuncture / Unknown 11/11/2019 4:09 AM T 11/11/2019 4:20 AM [facility] Julien Stern Jr., MD LAB - CHEMISTR Y ORDERABLES Performing Organization Address City/State/[facility] Co de Phone Number [address] [phone] * (ABNORMAL) BASIC METABOLIC PANEL (CALCIUM TOTAL) (11/10/2019 2:49 AM RFID ENGINEER) BUN 6(L) 7 - 26 mg/dL 11/10/2019 4:12 AM [facility] Creatinine 0.9 0.6 - 1.2 mg/dL 11/10/2019 4:12 AM [facility] Comment:Confirmed by repeat analysis. Sodium 148(H) 136 - 145 mmol/L 11/10/2019 4:12 AM [facility] Potassium 4.9(H) 3.5 - 4.5 mmol/L 11/10/2019 4:12 AM [facility] Chloride 110(H) 98 - 107 mmol/L 11/10/2019 4:12 AM [facility] CO2 20(L) 22 - 29 mmol/L 11/10/2019 4:12 AM [facility] Glucose 93 70 - 115 mg/dL 11/10/2019 4:12 AM [facility] Calcium 8.1(L) 8.4 - 10.2 mg/dL 11/10/2019 4:12 AM [facility] Anion Gap 23(H) 8 - 18 11/10/2019 4:12 AM [facility] BUN/Creatinine Ratio 7 7 - 23 11/10/2019 4:12 AM [facility] Osmolality Calculated 303(H) 270 - 300 mOsm/kg 11/10/2019 4:12 AM [facility] eGFR >60 >60 mL/min/1.7 3 m2 11/10/2019 4:12 AM [facility] Blood BLOOD SPECIMEN / Unknown Lab Venipuncture / Unknown 11/10/2019 2:49 AM [employer] ENGINEER 11/10/2019 3:04 AM [employer] Julien Stern Jr., MD LAB - CHEMISTR Y ORDERABLES Performing Organization Address City/State/[facility] Co de Phone Number [address] [phone] * (ABNORMAL) CBC W/O DIFFERENTIAL (11/10/2019 2:49 AM RFID ENGINEER) WBC 7.8 3.5 - 10.5 10? 3 /uL 11/10/2019 3:22 AM [facility] RBC 3.02(L) 3.90 - 5.00 10? 6 /uL 11/10/2019 3:22 AM [facility] Hemoglobin 8.1(L) 12.0 - 15.5 g/dL 11/10/2019 3:22 AM [facility] Hematocrit 26.6(L) 35.0 - 45.0 % 11/10/2019 3:22 AM [facility] MCV 88.1 81.0 - 97.0 fL 11/10/2019 3:22 AM [facility] MCH 26.8(L) 28.0 - 34.0 pg 11/10/2019 3:22 AM [facility] MCHC 30.5(L) 32.0 - 36.0 g/dL 11/10/2019 3:22 AM [facility] Platelet Count 289 150 - 400 10? 3 /uL 11/10/2019 3:22 AM [facility] RDW-SD 47.0 36.0 - 50.0 fL 11/10/2019 3:22 AM [facility] RDW-CV 14.6 11.2 - 14.8 % 11/10/2019 3:22 AM [facility] MPV 9.8 9.3 - 12.8 fL 11/10/2019 3:22 AM [facility] nRBC Absolute 0.02(H) 0 10? 3 /uL 11/10/2019 3:22 AM [facility] nRBC Auto 0.3(H) 0 /100 WBC 11/10/2019 3:22 AM [facility] Blood BLOOD SPECIMEN / Unknown Lab Venipuncture / Unknown 11/10/2019 2:49 AM [employer] 11/10/2019 3:04 AM [employer] ENGINE[employer] Julien Stern Jr., MD LAB - HEMATOLO GY ORDERABLES [address] [phone] * (ABNORMAL) BASIC METABOLIC PANEL (CALCIUM TOTAL) (11/09/2019 2:48 AM RFID ENGINEER) BUN 6(L) 7 - 26 mg/dL 11/09/2019 3:17 AM [facility] Creatinine 0.6 0.6 - 1.2 mg/dL 11/09/2019 3:17 AM [facility] Sodium 142 136 - 145 mmol/L 11/09/2019 3:17 AM [facility] Potassium 4.1 3.5 - 4.5 mmol/L 11/09/2019 3:17 AM [facility] Chloride 108(H) 98 - 107 mmol/L 11/09/2019 3:17 AM [facility] CO2 26 22 - 29 mmol/L 11/09/2019 3:17 AM [facility] Glucose 99 70 - 115 mg/dL 11/09/2019 3:17 AM [facility] Calcium 8.1(L) 8.4 - 10.2 mg/dL 11/09/2019 3:17 AM [facility] Anion Gap 12 8 - 18 11/09/2019 3:17 AM [facility] BUN/Creatinine Ratio 10 7 - 23 11/09/2019 3:17 AM [facility] Osmolality Calculated 292 270 - 300 mOsm/kg 11/09/2019 3:17 AM [facility] eGFR >60 >60 mL/min/1.7 3 m2 11/09/2019 3:17 AM [facility] Blood BLOOD SPECIMEN / Unknown Lab Venipuncture / Unknown 11/09/2019 2:48 AM [employer] ENGINEER 11/09/2019 2:57 AM RF[employer] ENGINEER Julien Stern Jr., MD LAB - CHEMISTR Y ORDERABLES [facility] [address] [phone] * (ABNORMAL) CBC W/O DIFFERENTIAL (11/09/2019 2:48 AM [facility]) WBC 7.3 3.5 - 10.5 10? 3 /uL 11/09/2019 3:14 AM [facility] RBC 2.94(L) 3.90 - 5.00 10? 6 /uL 11/09/2019 3:14 AM [facility] Hemoglobin 8.1(L) 12.0 - 15.5 g/dL 11/09/2019 3:14 AM [facility] Hematocrit 25.5(L) 35.0 - 45.0 % 11/09/2019 3:14 AM [facility] MCV 86.7 81.0 - 97.0 fL 11/09/2019 3:14 AM [facility] MCH 27.6(L) 28.0 - 34.0 pg 11/09/2019 3:14 AM [facility] MCHC 31.8(L) 32.0 - 36.0 g/dL 11/09/2019 3:14 AM [facility] Platelet Count 268 150 - 400 10? 3 /uL 11/09/2019 3:14 AM [facility] RDW-SD 44.5 36.0 - 50.0 fL 11/09/2019 3:14 AM [facility] RDW-CV 14.1 11.2 - 14.8 % 11/09/2019 3:14 AM [facility] MPV 9.9 9.3 - 12.8 fL 11/09/2019 3:14 AM [facility] nRBC Absolute 0.03(H) 0 10? 3 /uL 11/09/2019 3:14 AM [facility] nRBC Auto 0.4(H) 0 /100 WBC 11/09/2019 3:14 AM [facility] Comment:Confirmed by repeat analysis. Blood BLOOD SPECIMEN / Unknown Lab Venipuncture / Unknown 11/09/2019 2:48 AM [employer] ENGINE[employer] 11/09/2019 2:57 AM [employer] ENGINEER Julien Stern Jr., MD LAB - HEMATOLO GY ORDERABLES [facility] [address] [place] [address] * (ABNORMAL) BASIC METABOLIC PANEL (CALCIUM TOTAL) (11/08/2019 2:49 AM RFID ENGINEER) BUN 7 7 - 26 mg/dL 11/08/2019 3:23 AM [facility] Creatinine 0.6 0.6 - 1.2 mg/dL 11/08/2019 3:23 AM [facility] Sodium 141 136 - 145 mmol/L 11/08/2019 3:23 AM [facility] Potassium 3.9 3.5 - 4.5 mmol/L 11/08/2019 3:23 AM [facility] Chloride 106 98 - 107 mmol/L 11/08/2019 3:23 AM [facility] CO2 24 22 - 29 mmol/L 11/08/2019 3:23 AM [facility] Glucose 104 70 - 115 mg/dL 11/08/2019 3:23 AM [facility] Calcium 8.2(L) 8.4 - 10.2 mg/dL 11/08/2019 3:23 AM [facility] Anion Gap 15 8 - 18 11/08/2019 3:23 AM [facility] BUN/Creatinine Ratio 12 7 - 23 11/08/2019 3:23 AM [facility] Osmolality Calculated 290 270 - 300 mOsm/kg 11/08/2019 3:23 AM [facility] eGFR >60 >60 mL/min/1.7 3 m2 11/08/2019 3:23 AM [facility] Blood BLOOD SPECIMEN / Unknown Lab Venipuncture / Unknown 11/08/2019 2:49 AM [employer] ENGINEER 11/08/2019 2:57 AM RFID ENGINEER Julien Stern Jr., MD LAB - CHEMISTR Y ORDERABLES [facility] [address] [phone] * (ABNORMAL) CBC W/O DIFFERENTIAL (11/08/2019 2:49 AM RFID ENGINEER) WBC 6.5 3.5 - 10.5 10? 3 /uL 11/08/2019 3:07 AM [facility] RBC 3.10(L) 3.90 - 5.00 10? 6 /uL 11/08/2019 3:07 AM [facility] Hemoglobin 8.4(L) 12.0 - 15.5 g/dL 11/08/2019 3:07 AM [facility] Hematocrit 26.8(L) 35.0 - 45.0 % 11/08/2019 3:07 AM [facility] MCV 86.5 81.0 - 97.0 fL 11/08/2019 3:07 AM [facility] MCH 27.1(L) 28.0 - 34.0 pg 11/08/2019 3:07 AM [facility] MCHC 31.3(L) 32.0 - 36.0 g/dL 11/08/2019 3:07 AM [facility] Platelet Count 253 150 - 400 10? 3 /uL 11/08/2019 3:07 AM [facility] RDW-SD 44.2 36.0 - 50.0 fL 11/08/2019 3:07 AM [facility] RDW-CV 14.1 11.2 - 14.8 % 11/08/2019 3:07 AM [facility] MPV 9.8 9.3 - 12.8 fL 11/08/2019 3:07 AM [facility] nRBC Absolute 0.00 0 10? 3 /uL 11/08/2019 3:07 AM [facility] nRBC Auto 0.0 0 /100 WBC 11/08/2019 3:07 AM [facility] Blood BLOOD SPECIMEN / Unknown Lab Venipuncture / Unknown 11/08/2019 2:49 AM RFID ENGINEER 11/08/2019 3:06 AM [employer]ID ENGINEER Julien Stern Jr., MD LAB - HEMATOLO GY ORDERABLES [address] [phone] * XR LUMBAR SPINE 2 OR 3VW (11/07/2019 2:21 PM RFID ENGINEER) Anatomical Region Laterality Modality Spine Radiographic Mayda ging 11/07/2019 2:20 PM RFID ENGINEER Impressions 11/07/2019 2:25 PM RFID ENGINEER FINDINGS/IMPRESSION: Interval posterior spinal fusion of L4-S1 with interbody spacer devices at L4-5 and L5-S1 without evidence of dislocation.. The vertebral bodies are normally aligned. There is no fracture or compression deformity. The intervertebral disc spaces are maintained. The sacroiliac joints are normal. Dictated by Bernard Lerma MD (information services vice president). I, Dr. CAROL BUTLER have personally reviewed and interpreted this examination/study. This report was electronically signed by CAROL BUTLER ??on 11/07/2019 2:25 PM . Narrative 11/07/2019 2:25 PM RFID ENGINEER EXAMINATION: XR LUMBAR SPINE 2 OR 3VW HISTORY: M54.17: Lumbosacral radiculopathy at L5 COMPARISON: CT lumbar spine without contrast 08/13/2019 from [facility] Procedure Note Carol Butler DO - 11/07/2019 EXAMINATION: XR LUMBAR SPINE 2 OR 3VW HISTORY: M54.17: Lumbosacral radiculopathy at L5 COMPARISON: CT lumbar spine without contrast 08/13/2019 from [facility] FINDINGS/IMPRESSION: Interval posterior spinal fusion of L4-S1 with interbody spacer devicesat L4-5 and L5-S1 without evidence of dislocation.. The vertebral bodies are normally aligned. There is no fracture or compression deformity. The intervertebral disc spaces are maintained.The sacroiliac joints are normal. Dictated by Bernard Lerma MD (information services vice president). I, Dr. CAROL BUTLER have personally reviewed and interpreted this examination/study. This report was electronically signed by CAROL BUTLER on 11/07/2019 2:25 PM . Meena Machado MD DIAGNOSTIC IMAGING O RDERABLES * (ABNORMAL) BASIC METABOLIC PANEL (CALCIUM TOTAL) (11/07/2019 2:59 AM RFID ENGINEER) BUN 6(L) 7 - 26 mg/dL 11/07/2019 4:22 AM [facility] Creatinine 0.6 0.6 - 1.2 mg/dL 11/07/2019 4:22 AM [facility] Sodium 139 136 - 145 mmol/L 11/07/2019 4:22 AM [facility] Potassium 4.0 3.5 - 4.5 mmol/L 11/07/2019 4:22 AM [facility] Chloride 103 98 - 107 mmol/L 11/07/2019 4:22 AM [facility] CO2 28 22 - 29 mmol/L 11/07/2019 4:22 AM [facility] Glucose 104 70 - 115 mg/dL 11/07/2019 4:22 AM [facility] Calcium 8.4 8.4 - 10.2 mg/dL 11/07/2019 4:22 AM [facility] Anion Gap 12 8 - 18 11/07/2019 4:22 AM [facility] BUN/Creatinine Ratio 10 7 - 23 11/07/2019 4:22 AM [facility] Osmolality Calculated 286 270 - 300 mOsm/kg 11/07/2019 4:22 AM [facility] eGFR >60 >60 mL/min/1.7 3 m2 11/07/2019 4:22 AM [facility] Blood BLOOD SPECIMEN / Unknown Lab Venipuncture / Unknown 11/07/2019 2:59 AM RFID ENGINEER 11/07/2019 3:57 AM [employer] Julien Stern Jr., MD LAB - CHEMISTR Y ORDERABLES [address] [phone] * (ABNORMAL) CBC W/O DIFFERENTIAL (11/07/2019 2:59 AM RFID ENGINEER) WBC 6.7 3.5 - 10.5 10? 3 /uL 11/07/2019 4:15 AM [facility] RBC 3.21(L) 3.90 - 5.00 10? 6 /uL 11/07/2019 4:15 AM [facility] Hemoglobin 8.7(L) 12.0 - 15.5 g/dL 11/07/2019 4:15 AM [facility] Hematocrit 27.5(L) 35.0 - 45.0 % 11/07/2019 4:15 AM [facility] MCV 85.7 81.0 - 97.0 fL 11/07/2019 4:15 AM [facility] MCH 27.1(L) 28.0 - 34.0 pg 11/07/2019 4:15 AM [facility] MCHC 31.6(L) 32.0 - 36.0 g/dL 11/07/2019 4:15 AM [facility] Platelet Count 233 150 - 400 10? 3 /uL 11/07/2019 4:15 AM [facility] RDW-SD 43.6 36.0 - 50.0 fL 11/07/2019 4:15 AM [facility] RDW-CV 13.9 11.2 - 14.8 % 11/07/2019 4:15 AM [facility] MPV 10.1 9.3 - 12.8 fL 11/07/2019 4:15 AM [facility] nRBC Absolute 0.00 0 10? 3 /uL 11/07/2019 4:15 AM [facility] nRBC Auto 0.0 0 /100 WBC 11/07/2019 4:15 AM [facility] Blood BLOOD SPECIMEN / Unknown Lab Venipuncture / Unknown 11/07/2019 2:59 AM RFID ENGINEER 11/07/2019 3:57 AM RFID ENGINEER Julien Stern Jr., MD LAB - HEMATOLO GY ORDERABLES [facility] [address] [phone] * (ABNORMAL) BASIC METABOLIC PANEL (CALCIUM TOTAL) (11/06/2019 2:47 AM RFID ENGINEER) BUN 6(L) 7 - 26 mg/dL 11/06/2019 3:46 AM [facility] Creatinine 0.5(L) 0.6 - 1.2 mg/dL 11/06/2019 3:46 AM [facility] Sodium 138 136 - 145 mmol/L 11/06/2019 3:46 AM [facility] Potassium 3.6 3.5 - 4.5 mmol/L 11/06/2019 3:46 AM [facility] Chloride 103 98 - 107 mmol/L 11/06/2019 3:46 AM [facility] CO2 27 22 - 29 mmol/L 11/06/2019 3:46 AM [facility] Glucose 118(H) 70 - 115 mg/dL 11/06/2019 3:46 AM [facility] Calcium 8.0(L) 8.4 - 10.2 mg/dL 11/06/2019 3:46 AM [facility] Anion Gap 12 8 - 18 11/06/2019 3:46 AM [facility] BUN/Creatinine Ratio 12 7 - 23 11/06/2019 3:46 AM [facility] Osmolality Calculated 285 270 - 300 mOsm/kg 11/06/2019 3:46 AM [facility] eGFR >60 >60 mL/min/1.7 3 m2 11/06/2019 3:46 AM [facility] Blood BLOOD SPECIMEN / Unknown Lab Venipuncture / Unknown 11/06/2019 2:47 AM [facility] 11/06/2019 3:07 AM [facility] Julien Stern Jr., MD LAB - CHEMISTR Y ORDERABLES [address] [phone] * (ABNORMAL) CBC W/O DIFFERENTIAL (11/06/2019 2:47 AM [facility]) WBC 8.6 3.5 - 10.5 10? 3 /uL 11/06/2019 3:14 AM [facility] RBC 3.14(L) 3.90 - 5.00 10? 6 /uL 11/06/2019 3:14 AM [facility] Hemoglobin 8.4(L) 12.0 - 15.5 g/dL 11/06/2019 3:14 AM [facility] Hematocrit 26.9(L) 35.0 - 45.0 % 11/06/2019 3:14 AM [facility] MCV 85.7 81.0 - 97.0 fL 11/06/2019 3:14 AM [facility] MCH 26.8(L) 28.0 - 34.0 pg 11/06/2019 3:14 AM [facility] MCHC 31.2(L) 32.0 - 36.0 g/dL 11/06/2019 3:14 AM [facility] Platelet Count 207 150 - 400 10? 3 /uL 11/06/2019 3:14 AM [facility] RDW-SD 43.0 36.0 - 50.0 fL 11/06/2019 3:14 AM [facility] RDW-CV 13.7 11.2 - 14.8 % 11/06/2019 3:14 AM [facility] MPV 10.1 9.3 - 12.8 fL 11/06/2019 3:14 AM [facility] nRBC Absolute 0.00 0 10? 3 /uL 11/06/2019 3:14 AM [facility] nRBC Auto 0.0 0 /100 WBC 11/06/2019 3:14 AM [facility] Blood BLOOD SPECIMEN / Unknown Lab Venipuncture / Unknown 11/06/2019 2:47 AM RFID ENGINEER 11/06/2019 3:07 AM RFID ENGINEER Julien Stern Jr., MD LAB - HEMATOLO GY ORDERABLES [address] [phone] * BASIC METABOLIC PANEL (CALCIUM TOTAL) (11/05/2019 3:25 AM RFID ENGINEER) BUN 8 7 - 26 mg/dL 11/05/2019 4:14 AM [facility] Creatinine 0.7 0.6 - 1.2 mg/dL 11/05/2019 4:14 AM [facility] Sodium 140 136 - 145 mmol/L 11/05/2019 4:14 AM [facility] Potassium 3.6 3.5 - 4.5 mmol/L 11/05/2019 4:14 AM [facility] Chloride 106 98 - 107 mmol/L 11/05/2019 4:14 AM [facility] CO2 22 22 - 29 mmol/L 11/05/2019 4:14 AM [facility] Glucose 88 70 - 115 mg/dL 11/05/2019 4:14 AM [facility] Calcium 8.8 8.4 - 10.2 mg/dL 11/05/2019 4:14 AM [facility] Anion Gap 16 8 - 18 11/05/2019 4:14 AM [facility] BUN/Creatinine Ratio 11 7 - 23 11/05/2019 4:14 AM [facility] Osmolality Calculated 288 270 - 300 mOsm/kg 11/05/2019 4:14 AM [facility] eGFR >60 >60 mL/min/1.7 3 m2 11/05/2019 4:14 AM [facility] Blood BLOOD SPECIMEN / Unknown Lab Venipuncture / Unknown 11/05/2019 3:25 AM RFID ENGINEER 11/05/2019 3:35 AM [facility] Julien Stern Jr., MD LAB - CHEMISTR Y ORDERABLES Performing Organization Address City/State/[facility] Co de Phone Number [address] [phone] * (ABNORMAL) CBC W/O DIFFERENTIAL (11/05/2019 3:25 AM [facility]) WBC 11.4(H) 3.5 - 10.5 10? 3 /uL 11/05/2019 3:54 AM [facility] RBC 3.27(L) 3.90 - 5.00 10? 6 /uL 11/05/2019 3:54 AM [facility] Hemoglobin 8.9(L) 12.0 - 15.5 g/dL 11/05/2019 3:54 AM [facility] Hematocrit 28.5(L) 35.0 - 45.0 % 11/05/2019 3:54 AM [facility] MCV 87.2 81.0 - 97.0 fL 11/05/2019 3:54 AM [facility] MCH 27.2(L) 28.0 - 34.0 pg 11/05/2019 3:54 AM [facility] MCHC 31.2(L) 32.0 - 36.0 g/dL 11/05/2019 3:54 AM [facility] Platelet Count 160 150 - 400 10? 3 /uL 11/05/2019 3:54 AM [facility] RDW-SD 44.6 36.0 - 50.0 fL 11/05/2019 3:54 AM [facility] RDW-CV 13.9 11.2 - 14.8 % 11/05/2019 3:54 AM [facility] MPV 10.1 9.3 - 12.8 fL 11/05/2019 3:54 AM [facility] nRBC Absolute 0.00 0 10? 3 /uL 11/05/2019 3:54 AM [facility] nRBC Auto 0.0 0 /100 WBC 11/05/2019 3:54 AM [facility] Blood BLOOD SPECIMEN / Unknown Lab Venipuncture / Unknown 11/05/2019 3:25 AM RFID ENGINEER 11/05/2019 3:35 AM [facility] Julien Stern Jr., MD LAB - HEMATOLO GY ORDERABLES Performing Organization Address [facility]/State/[facility] Co de Phone Number [address] [phone] * (ABNORMAL) BASIC METABOLIC PANEL (CALCIUM TOTAL) (11/04/2019 2:08 AM RFID ENGINEER) BUN 7 7 - 26 mg/dL 11/04/2019 3:48 AM [facility] Creatinine 0.8 0.6 - 1.2 mg/dL 11/04/2019 3:48 AM [facility] Sodium 140 136 - 145 mmol/L 11/04/2019 3:48 AM [facility] Potassium 3.9 3.5 - 4.5 mmol/L 11/04/2019 3:48 AM [facility] Chloride 106 98 - 107 mmol/L 11/04/2019 3:48 AM [facility] CO2 24 22 - 29 mmol/L 11/04/2019 3:48 AM [facility] Glucose 102 70 - 115 mg/dL 11/04/2019 3:48 AM [facility] Calcium 8.3(L) 8.4 - 10.2 mg/dL 11/04/2019 3:48 AM [facility] Anion Gap 14 8 - 18 11/04/2019 3:48 AM [facility] BUN/Creatinine Ratio 9 7 - 23 11/04/2019 3:48 AM [facility] Osmolality Calculated 288 270 - 300 mOsm/kg 11/04/2019 3:48 AM [facility] eGFR >60 >60 mL/min/1.7 3 m2 11/04/2019 3:48 AM [facility] Blood BLOOD SPECIMEN / Unknown Lab Venipuncture / Unknown 11/04/2019 2:08 AM [facility] 11/04/2019 3:13 AM [facility] Julien Stern Jr., MD LAB - CHEMISTR Y ORDERABLES Performing Organization Address City/State/[facility] Co de Phone Number [address] [phone] * (ABNORMAL) CBC W/O DIFFERENTIAL (11/04/2019 2:08 AM [facility]) WBC 12.9(H) 3.5 - 10.5 10? 3 /uL 11/04/2019 3:18 AM [facility] RBC 3.33(L) 3.90 - 5.00 10? 6 /uL 11/04/2019 3:18 AM [facility] Hemoglobin 9.0(L) 12.0 - 15.5 g/dL 11/04/2019 3:18 AM [facility] Hematocrit 29.2(L) 35.0 - 45.0 % 11/04/2019 3:18 AM [facility] MCV 87.7 81.0 - 97.0 fL 11/04/2019 3:18 AM [facility] MCH 27.0(L) 28.0 - 34.0 pg 11/04/2019 3:18 AM [facility] MCHC 30.8(L) 32.0 - 36.0 g/dL 11/04/2019 3:18 AM [facility] Platelet Count 160 150 - 400 10? 3 /uL 11/04/2019 3:18 AM [facility] RDW-SD 44.5 36.0 - 50.0 fL 11/04/2019 3:18 AM [facility] RDW-CV 13.8 11.2 - 14.8 % 11/04/2019 3:18 AM [facility] MPV 10.3 9.3 - 12.8 fL 11/04/2019 3:18 AM [facility] nRBC Absolute 0.00 0 10? 3 /uL 11/04/2019 3:18 AM [facility] nRBC Auto 0.0 0 /100 WBC 11/04/2019 3:18 AM [facility] Blood BLOOD SPECIMEN / Unknown Lab Venipuncture / Unknown 11/04/2019 2:08 AM [facility] 11/04/2019 3:13 AM [facility] Julien Stern Jr., MD LAB - HEMATOLO GY ORDERABLES Performing Organization Address City/State/[facility] Co de Phone Number [address] [phone] * (ABNORMAL) BASIC METABOLIC PANEL (CALCIUM TOTAL) (11/03/2019 7:14 AM [facility]) BUN 8 7 - 26 mg/dL 11/03/2019 7:49 AM [facility] Creatinine 0.8 0.6 - 1.2 mg/dL 11/03/2019 7:49 AM [facility] Sodium 140 136 - 145 mmol/L 11/03/2019 7:49 AM [facility] Potassium 4.2 3.5 - 4.5 mmol/L 11/03/2019 7:49 AM [facility] Chloride 106 98 - 107 mmol/L 11/03/2019 7:49 AM [facility] CO2 26 22 - 29 mmol/L 11/03/2019 7:49 AM [facility] Glucose 123(H) 70 - 115 mg/dL 11/03/2019 7:49 AM [facility] Calcium 8.5 8.4 - 10.2 mg/dL 11/03/2019 7:49 AM [facility] Anion Gap 12 8 - 18 11/03/2019 7:49 AM [facility] BUN/Creatinine Ratio 10 7 - 23 11/03/2019 7:49 AM [facility] Osmolality Calculated 290 270 - 300 mOsm/kg 11/03/2019 7:49 AM [facility] eGFR >60 >60 mL/min/1.7 3 m2 11/03/2019 7:49 AM [facility] Blood BLOOD SPECIMEN / Unknown Lab Venipuncture / Unknown 11/03/2019 7:14 AM [facility] 11/03/2019 7:30 AM [facility] Julien Stern Jr., MD LAB - CHEMISTR Y ORDERABLES Performing Organization Address City/State/[facility] Co de Phone Number [address] [phone] * (ABNORMAL) CBC W/O DIFFERENTIAL (11/03/2019 7:14 AM [facility]) WBC 12.4(H) 3.5 - 10.5 10? 3 /uL 11/03/2019 7:40 AM [facility] RBC 3.49(L) 3.90 - 5.00 10? 6 /uL 11/03/2019 7:40 AM [facility] Hemoglobin 9.5(L) 12.0 - 15.5 g/dL 11/03/2019 7:40 AM [facility] Hematocrit 30.4(L) 35.0 - 45.0 % 11/03/2019 7:40 AM [facility] MCV 87.1 81.0 - 97.0 fL 11/03/2019 7:40 AM [facility] MCH 27.2(L) 28.0 - 34.0 pg 11/03/2019 7:40 AM [facility] MCHC 31.3(L) 32.0 - 36.0 g/dL 11/03/2019 7:40 AM [facility] Platelet Count 183 150 - 400 10? 3 /uL 11/03/2019 7:40 AM [facility] RDW-SD 44.4 36.0 - 50.0 fL 11/03/2019 7:40 AM [facility] RDW-CV 13.9 11.2 - 14.8 % 11/03/2019 7:40 AM [facility] MPV 9.8 9.3 - 12.8 fL 11/03/2019 7:40 AM [facility] nRBC Absolute 0.00 0 10? 3 /uL 11/03/2019 7:40 AM [facility] nRBC Auto 0.0 0 /100 WBC 11/03/2019 7:40 AM [facility] Blood BLOOD SPECIMEN / Unknown Lab Venipuncture / Unknown 11/03/2019 7:14 AM [facility] 11/03/2019 7:30 AM [facility] Narrative [facility] - 11/03/2019 7:40 AM [facility] All CBC parameters have been checked. Julien Stern Jr., MD LAB - HEMATOLO GY ORDERABLES Performing Organization Address [facility] Co de Phone Number [address] [phone] * FL OARM SURGERY (11/02/2019 3:19 PM RFID ENGINEER) Narrative [facility] - 11/02/2019 3:20 PM RFID ENGINEER Fluoroscopy was used for this exam in the OR. Please see the Operative report. Sammy Carrero MD FLUOROSCOPY ORDERABL ES Performing Organization Address [facility] Co de Phone Number [facility] * [place] LEVI SURGERY (11/02/2019 3:02 PM RFID ENGINEER) Narrative [facility] - 11/02/2019 3:03 PM RFID ENGINEER Fluoroscopy was used for this exam in the OR. Please see the Operative report. Sammy Carrero MD FLUOROSCOPY ORDERABL ES Performing Organization Address [facility] Co de Phone Number [facility] * (ABNORMAL) BLOOD GASES ART COMPLETE [facility] (11/02/2019 2:09 PM RFID ENGINEER) pH Arterial 7.44 7.35 - 7.45 11/02/2019 2:13 PM [facility] pCO2 Arterial 33(L) 35 - 45 mmHg 11/02/2019 2:13 PM [facility] pO2 Arterial 165(H) 71 - 95 mmHg 11/02/2019 2:13 PM [facility] HCO3 Arterial 22.0 22.0 - 26.0 mmol/L 11/02/2019 2:13 PM [facility] TCO2 Arterial 23.0(L) 25.0 - 29.0 mmol/L 11/02/2019 2:13 PM [facility] Base Excess Arterial -1.8 -2.0 - 2.0 mmol/L 11/02/2019 2:13 PM [facility] Hemoglobin Arterial 9.1(L) 12.0 - 15.5 g/dL 11/02/2019 2:13 PM [facility] Oxyhemoglobin Arterial 97.7 95.0 - 100.0 % 11/02/2019 2:13 PM [facility] Carboxyhemoglobin 0.1 0.0 - 3.0 % 11/02/2019 2:13 PM [facility] Methemoglobin 0.3 0.0 - 2.0 % 11/02/2019 2:13 PM [facility] FI O2 Arterial 35.0 % 11/02/2019 2:13 PM [facility] Ionized Calcium Whole Blood 1.17 mmol/L 11/02/2019 2:13 PM [facility] Adjusted Ionized Calcium 1.19 1.19 - 1.34 mmol/L 11/02/2019 2:13 PM [facility] Sodium Whole Blood 139 135 - 145 mmol/L 11/02/2019 2:13 PM [facility] Potassium Whole Blood 4.0 3.5 - 5.5 mmol/L 11/02/2019 2:13 PM [facility] Chloride Whole Blood 109 101 - 111 mmol/L 11/02/2019 2:13 PM [facility] Glucose Whole Blood 120(H) 70 - 110 mg/dL 11/02/2019 2:13 PM [facility] Lactic Acid Whole Blood 2.3 0.5 - 3.4 mmol/L 11/02/2019 2:13 PM RFID ENGINEER [facility] Blood ARTERIAL BLOOD SPECIMEN / Unknown Venipuncture / Unknown 11/02/2019 2:09 PM RFID ENGINEER 11/02/2019 2:09 PM RFID ENGINEER Mat Irizarry MD LAB - BLOOD GASES OR DERABLES [facility] [address] [phone] * (ABNORMAL) BLOOD GASES ART COMPLETE [facility] (11/02/2019 12:31 PM RFID ENGINEER) pH Arterial 7.36 7.35 - 7.45 11/02/2019 12:43 PM [facility] pCO2 Arterial 41 35 - 45 mmHg 11/02/2019 12:43 PM [facility] pO2 Arterial 162(H) 71 - 95 mmHg 11/02/2019 12:43 PM [facility] HCO3 Arterial 22.3 22.0 - 26.0 mmol/L 11/02/2019 12:43 PM [facility] TCO2 Arterial 23.6(L) 25.0 - 29.0 mmol/L 11/02/2019 12:43 PM [facility] Base Excess Arterial -2.9(L) -2.0 - 2.0 mmol/L 11/02/2019 12:43 PM [facility] Hemoglobin Arterial 10.1(L) 12.0 - 15.5 g/dL 11/02/2019 12:43 PM [facility] Oxyhemoglobin Arterial 97.7 95.0 - 100.0 % 11/02/2019 12:43 PM [facility] Carboxyhemoglobin 0.3 0.0 - 3.0 % 11/02/2019 12:43 PM [facility] Methemoglobin 0.7 0.0 - 2.0 % 11/02/2019 12:43 PM [facility] FI O2 Arterial 35.0 % 11/02/2019 12:43 PM [facility] Ionized Calcium Whole Blood 1.08 mmol/L 11/02/2019 12:43 PM [facility] Adjusted Ionized Calcium 1.06(L) 1.19 - 1.34 mmol/L 11/02/2019 12:43 PM [facility] Sodium Whole Blood 143 135 - 145 mmol/L 11/02/2019 12:43 PM [facility] Potassium Whole Blood 3.7 3.5 - 5.5 mmol/L 11/02/2019 12:43 PM [facility] Chloride Whole Blood 109 101 - 111 mmol/L 11/02/2019 12:43 PM [facility] Glucose Whole Blood 147(H) 70 - 110 mg/dL 11/02/2019 12:43 PM [facility] Lactic Acid Whole Blood 2.7 0.5 - 3.4 mmol/L 11/02/2019 12:43 PM [facility] Blood ARTERIAL BLOOD SPECIMEN / Unknown Venipuncture / Unknown 11/02/2019 12:31 PM RFID ENGINEER 11/02/2019 12:36 PM RFID ENGINEER Mat Irizarry MD LAB - BLOOD GASES OR DERABLES Performing Organization Address City/State/[facility] Co de Phone Number [facility] [address] [place] [address] * (ABNORMAL) BLOOD GASES ART COMPLETE [facility] (11/02/2019 10:58 AM [facility]) pH Arterial 7.40 7.35 - 7.45 11/02/2019 11:06 AM [facility] pCO2 Arterial 37 35 - 45 mmHg 11/02/2019 11:06 AM [facility] pO2 Arterial 152(H) 71 - 95 mmHg 11/02/2019 11:06 AM [facility] HCO3 Arterial 22.6 22.0 - 26.0 mmol/L 11/02/2019 11:06 AM [facility] TCO2 Arterial 23.7(L) 25.0 - 29.0 mmol/L 11/02/2019 11:06 AM [facility] Base Excess Arterial -1.8 -2.0 - 2.0 mmol/L 11/02/2019 11:06 AM [facility] Hemoglobin Arterial 10.9(L) 12.0 - 15.5 g/dL 11/02/2019 11:06 AM [facility] Oxyhemoglobin Arterial 97.9 95.0 - 100.0 % 11/02/2019 11:06 AM [facility] Carboxyhemoglobin 0.3 0.0 - 3.0 % 11/02/2019 11:06 AM [facility] Methemoglobin 0.3 0.0 - 2.0 % 11/02/2019 11:06 AM [facility] FI O2 Arterial 33.0 % 11/02/2019 11:06 AM [facility] Ionized Calcium Whole Blood 1.11 mmol/L 11/02/2019 11:06 AM [facility] Adjusted Ionized Calcium 1.11(L) 1.19 - 1.34 mmol/L 11/02/2019 11:06 AM [facility] Sodium Whole Blood 140 135 - 145 mmol/L 11/02/2019 11:06 AM [facility] Potassium Whole Blood 3.9 3.5 - 5.5 mmol/L 11/02/2019 11:06 AM [facility] Chloride Whole Blood 108 101 - 111 mmol/L 11/02/2019 11:06 AM [facility] Glucose Whole Blood 164(H) 70 - 110 mg/dL 11/02/2019 11:06 AM [facility] Lactic Acid Whole Blood 2.0 0.5 - 3.4 mmol/L 11/02/2019 11:06 AM [facility] Blood ARTERIAL BLOOD SPECIMEN / Unknown Venipuncture / Unknown 11/02/2019 10:58 AM [facility] 11/02/2019 10:58 AM [facility] Mat Irizarry MD LAB - BLOOD GASES OR DERABLES Performing Organization Address City/State/[facility] Co de Phone Number [address] [phone] * (ABNORMAL) BASIC METABOLIC PANEL (CALCIUM TOTAL) (11/02/2019 2:50 AM [facility]) BUN 10 7 - 26 mg/dL 11/02/2019 3:35 AM [facility] Creatinine 0.7 0.6 - 1.2 mg/dL 11/02/2019 3:35 AM [facility] Sodium 143 136 - 145 mmol/L 11/02/2019 3:35 AM [facility] Potassium 4.0 3.5 - 4.5 mmol/L 11/02/2019 3:35 AM RFID ENGINEER [facility] Chloride 111(H) 98 - 107 mmol/L 11/02/2019 3:35 AM [facility] CO2 24 22 - 29 mmol/L 11/02/2019 3:35 AM [facility] Glucose 97 70 - 115 mg/dL 11/02/2019 3:35 AM [facility] Calcium 8.8 8.4 - 10.2 mg/dL 11/02/2019 3:35 AM [facility] Anion Gap 12 8 - 18 11/02/2019 3:35 AM [facility] BUN/Creatinine Ratio 14 7 - 23 11/02/2019 3:35 AM [facility] Osmolality Calculated 295 270 - 300 mOsm/kg 11/02/2019 3:35 AM [facility] eGFR >60 >60 mL/min/1.7 3 m2 11/02/2019 3:35 AM [facility] Blood BLOOD SPECIMEN / Unknown Lab Venipuncture / Unknown 11/02/2019 2:50 AM RFID ENGINEER 11/02/2019 3:09 AM [facility] Julien Stern Jr., MD LAB - CHEMISTR Y ORDERABLES [facility] [address] [place] [address] * (ABNORMAL) CBC W/O DIFFERENTIAL (11/02/2019 2:50 AM RFID ENGINEER) WBC 4.7 3.5 - 10.5 10? 3 /uL 11/02/2019 3:18 AM [facility] RBC 4.57 3.90 - 5.00 10? 6 /uL 11/02/2019 3:18 AM [facility] Hemoglobin 12.1 12.0 - 15.5 g/dL 11/02/2019 3:18 AM [facility] Hematocrit 39.4 35.0 - 45.0 % 11/02/2019 3:18 AM [facility] MCV 86.2 81.0 - 97.0 fL 11/02/2019 3:18 AM [facility] MCH 26.5(L) 28.0 - 34.0 pg 11/02/2019 3:18 AM [facility] MCHC 30.7(L) 32.0 - 36.0 g/dL 11/02/2019 3:18 AM [facility] Platelet Count 205 150 - 400 10? 3 /uL 11/02/2019 3:18 AM [facility] RDW-SD 42.5 36.0 - 50.0 fL 11/02/2019 3:18 AM [facility] RDW-CV 13.6 11.2 - 14.8 % 11/02/2019 3:18 AM [facility] MPV 9.9 9.3 - 12.8 fL 11/02/2019 3:18 AM [facility] nRBC Absolute 0.00 0 10? 3 /uL 11/02/2019 3:18 AM [facility] nRBC Auto 0.0 0 /100 WBC 11/02/2019 3:18 AM [facility] Blood BLOOD SPECIMEN / Unknown Lab Venipuncture / Unknown 11/02/2019 2:50 AM RFID ENGINEER 11/02/2019 3:09 AM RFID ENGINEER Julien Stern Jr., MD LAB - HEMATOLO GY ORDERABLES [address] [phone] * PREPARE (CROSSMATCH) RBC UNIT(S), 2 Units (11/01/2019 3:59 PM RFID ENGINEER) Unit Description LR Red Cells [facility] Unit ABO A [facility] Unit Rh POS [facility] Product Number RA2 [facility] Unit Donor # [id number] [facility] Unit Status released [facility] Product Code [id number] [facility] Blood Type Barcode 6200 [facility] Unit Description LR Red Cells [facility] Unit ABO A [facility] Unit Rh POS [facility] Product Number RA1 [facility] Unit Donor # [id number] [facility] Unit Status released [facility] Product Code [id number] [facility] Blood Type Barcode 6200 [facility] Blood Bank BLOOD SPECIMEN / Unknown 11/01/2019 3:59 PM RFID ENGINEER 11/01/2019 3:59 PM RFID ENGINEER Navneet Aguilar MD LAB - BLOOD BANK ORD ERABLES Performing Organization Address City/[facility]/ZIP Co de Phone Number [facility] [address] [place] [address] * COOKIE DIRECT (11/01/2019 3:51 PM RFID ENGINEER) Direct Cookie (CALVIN) NEG 11/01/2019 5:25 PM RFID ENGINEER [facility] Blood Bank BLOOD SPECIMEN / Unknown Lab Venipuncture / Unknown 11/01/2019 3:51 PM RFID ENGINEER 11/01/2019 3:58 PM RFID ENGINEER Manuelito Young MD LAB - BLOOD BANK O RDERABLES Performing Organization Address [facility] Co de Phone Number [facility] [address] [place] [address] * ANTIBODY IDENTIFICATION (11/01/2019 3:51 PM RFID ENGINEER) Antibody 1 POS, Anti-Lianna 11/01/2019 5:24 PM RFID ENGINEER [facility] Blood Bank BLOOD SPECIMEN / Unknown Lab Venipuncture / Unknown 11/01/2019 3:51 PM RFID ENGINEER 11/01/2019 3:58 PM RFID ENGINEER Manuelito Young MD LAB - BLOOD BANK O RDERABLES Performing Organization Address City/[facility]/ZIP Co de Phone Number [facility] [address] [place] [address] * TYPE + SCREEN PANEL (11/01/2019 3:51 PM RFID ENGINEER) Antibody Screen POS 0 4:36 PM RFID ENGINEER [facility] ABO Rh A POS 11/01/2019 4:36 PM RFID ENGINEER [facility] Blood Bank BLOOD SPECIMEN / Unknown Lab Venipuncture / Unknown 11/01/2019 3:51 PM RFID ENGINEER 11/01/2019 3:58 PM RFID ENGINEER Manuelito Young MD LAB - BLOOD BANK O RDERABLES [facility] [address] [place] [address], [facility] documented in this encounter Visit Diagnoses Diagnosis Lumbosacral radiculopathy at L5- Primary Thoracic or lumbosacral neuritis or radiculitis, unspecified Lumbosacral radiculopathy at L5 Thoracic or lumbosacral neuritis or radiculitis, unspecified Spondylolisthesis at L4-L5 level Red blood cell antibody positive Other and unspecified nonspecific immunological findings documented in this encounter Administered Medications Inactive Administered Medications - up to 3 most recent administrations Medication Order MAR Action Action Date Dose Rate Site acetaminophen (TYLENOL) tablet 650 mg 650 mg, Oral, EVERY 4 HOURS PRN, Mild Pain, Starting on Tue11/02/19 at 1804, Until Tue11/12/19 at 2106, Post-op $ Given 11/02/2019 9:47 PM RFID ENGINEER 650 mg amitriptyline (ELAVIL) tablet 25 mg 25 mg, Oral, AT BEDTIME, First dose on Yulia 11/01/19 at 2100, Until Discontinued $ Given 11/11/2019 8:32 PM CDT 25 mg $ Given 11/10/2019 9:41 PM RFID ENGINEER 25 mg $ Given 11/09/2019 9:06 PM RFID ENGINEER 25 mg apixaban (ELIQUIS) tablet 2.5 mg 2.5 mg, Oral, 2 TIMES DAILY, First dose on Tue11/05/19 at 0815, Until Discontinued $ Given 11/12/2019 9:17 AM CDT 2.5 m g $ Given 11/11/2019 8:32 PM CDT 2.5 mg $ Given 11/11/2019 9:55 AM CDT 2.5 mg ceFAZolin (ANCEF) syringe 2,000 mg 2,000 mg (2 g), Intravenous, EVERY 8 HOURS, 2 doses, First dose on Tue11/02/19 at 2330, Last dose on 11/03/19 at 0730, Give first dose 6 hours after last dose in surgery. Last dose to be completed within 24 hours of close of incision. Administer over 3-5 minutes., Indication for anti-infective therapy: Surgical prophylaxis, Post-op $ Given 11/03/2019 8:17 AM RFID ENGINEER 2,000 mg $ Given 11/03/2019 12:34 AM RFID ENGINEER 2,000 mg docusate sodium (COLACE) capsule 100 mg 100 mg, Oral, DAILY, First dose on Tue11/02/19 at 1815, Until Discontinued, Post-op $ Given 11/11/2019 9:56 AM CDT 100 mg $ Given 11/10/2019 7:56 AM RFID ENGINEER 100 mg $ Given 11/09/2019 8:15 AM RFID ENGINEER 100 mg DULoxetine (CYMBALTA) capsule 30 mg 30 mg, Oral, DAILY, First dose on Yulia 11/01/19 at 1530, Until Discontinued, Capsules should be swallowed whole and not chewed, crushed, or opened to be sprinkled on food or mixed with liquids. $ Given 11/12/2019 9:17 AM CDT 30 mg $ Given 11/11/2019 9:56 AM CDT 30 mg $ Given 11/10/2019 7:56 AM RFID ENGINEER 30 mg fentaNYL (PF) (SUBLIMAZE) injection 50 mcg 50 mcg, Intravenous, EVERY 10 MIN PRN, Mild Pain, 4 doses, Starting on Tue11/02/19 at 1636, Until Tue11/02/19 at 1757, Maximum total of 4 doses. If patient reaches max total dose, please consult anesthesiologist prior to further administration of pain meds. Hold pain meds if there are signs of hypoventilation., PACU $ Given 11/02/2019 5:35 PM RFID ENGINEER 50 mcg $ Given 11/02/2019 5:23 PM RFID ENGINEER 50 mcg HYDROmorphone (DILAUDID) 0.2 mg/ml 911 TELECOMMUNICATOR 911 TELECOMMUNICATOR Dose: 0.1 mg, 911 TELECOMMUNICATOR Lockout Interval: 15 Minutes, One Hour Limit\Max Limit: 0.5 mg, Clinician Bolus (Load): Not Ordered, Intravenous, 911 TELECOMMUNICATOR, Starting on Tue11/02/19 at 2215, Until Tue11/06/19 at 2146, 911 TELECOMMUNICATOR Pump Therapy: Normal Risk (911 TELECOMMUNICATOR Only) $ New Bag/Syringe 11/04/2019 3:53 PM RFID ENGINEER $ New Bag/Syringe 11/02/2019 11:56 PM RFID ENGINEER HYDROmorphone (DILAUDID) 0.2 mg/ml 911 TELECOMMUNICATOR 911 TELECOMMUNICATOR Dose: 0.2 mg, 911 TELECOMMUNICATOR Lockout Interval: 15 Minutes, One Hour Limit\Max Limit: 0.8 mg, Clinician Bolus (Load): Not Ordered, Intravenous, 911 TELECOMMUNICATOR, Starting on Tue11/06/19 at 2200, Until Tue11/07/19 at 1400, 911 TELECOMMUNICATOR Pump Therapy: Normal Risk (911 TELECOMMUNICATOR Only) $ New Bag/Syringe 11/07/2019 9:27 AM RFID ENGINEER HYDROmorphone (DILAUDID) injection 0.5 mg 0.5 mg, Intravenous, EVERY 10 MIN PRN, Severe Pain, 4 doses, Starting on Tue11/02/19 at 1636, Until Tue11/02/19 at 1757, Maximum total of 4 doses If patient reaches max total dose, please consult anesthesiologist prior to further administration of pain meds. Hold pain meds if there are signs of hypoventilation., PACU $ Given 11/02/2019 5:31 PM RFID ENGINEER 0.5 mg $ Given 11/02/2019 5:09 PM RFID ENGINEER 0.5 mg HYDROmorphone (DILAUDID) injection 0.5 mg 0.5 mg, Intravenous, EVERY 4 HOURS PRN, Severe Pain, Starting on Tue11/07/19 at 1200, Until Tue11/12/19 at 2106, Use IV when enteral not tolerated, ineffective, or refused. $ Given 11/08/2019 8:59 PM RFID ENGINEER 0.5 mg lactated ringers infusion at 75 mL/hr, Intravenous, CONTINUOUS, Starting on Tue11/02/19 at 0000, Until Tue11/07/19 at 1400 $ New Bag/Syringe 11/07/2019 8:38 AM RFID ENGINEER 75 mL/hr Current Rate 11/07/2019 6:09 AM RFID ENGINEER 75 mL/hr $ New Bag/Syringe 11/06/2019 6:49 PM RFID ENGINEER 75 mL/ hr naloxone (NARCAN) injection 0.2 mg 0.2 mg, Intravenous, PRN, Other, If unable to arouse patient or if respiratory depression is present., 4 doses, Starting on Tue11/02/19 at 2155, Until Tue11/12/19 at 2106, Mix 0.4 mg Naloxone in 9 mL Normal Saline for slow IV push. Administer dilute Naloxone solution IV very slowly (5 mL over 2 minutes) while observing the patient response and titrating to effect. If no response, call Rapid Response, continue IV Naloxone at the same rate up to a total of 0.8 mg or 20 mL of diluted Naloxone, and notify physician immediately. oxyCODONE (immediate release) (ROXICODONE) tablet 5 mg 5 mg, Oral, EVERY 4 HOURS PRN, breakthrough, Starting on Tue11/02/19 at 1804, Until 11/03/19 at 1710, Post-op $ Given 11/02/2019 8:12 PM RFID ENGINEER 5 mg oxyCODONE (immediate release) (ROXICODONE) tablet 5 mg 5 mg, Oral, EVERY 4 HOURS PRN, Breakthrough pain, Starting on Yulia 11/08/19 at 0547, Until 11/12/19 at 2106 $ Given 11/12/2019 5:21 PM CDT 5 mg $ Given 11/12/2019 1:21 PM CDT 5 mg $ Given 11/12/2019 9:17 AM CDT 5 mg oxyCODONE-acetaminophen (PERCOCET) 5-325 MG tablet 1 tablet 1 tablet, Oral, EVERY 4 HOURS PRN, Moderate Pain, Starting on Tue11/02/19 at 1804, Until 11/12/19 at 2106, Post-op oxyCODONE-acetaminophen (PERCOCET) 5-325 MG tablet 2 tablet 2 tablet, Oral, EVERY 4 HOURS PRN, Severe Pain, Starting on Tue11/02/19 at 1804, Until 11/12/19 at 2106, Post-op $ Given 11/12/2019 3:37 PM C DT 2 tablets $ Given 11/12/2019 11:24 AM CDT 2 tablets $ Given 11/12/2019 6:22 AM CDT 2 tablets phenol (CHLORASEPTIC) 1.4 % liquid Oral, PRN, Sore Throat, Starting on Tue11/04/19 at 1014, Until 11/12/19 at 2106, . WASTE DISPOSAL INSTRUCTIONS: Black Bin Disposal required. polyethylene glycol 3350 (MIRALAX) packet 17 g 17 g, Oral, DAILY, First dose on Tue11/02/19 at 1815, Until Discontinued, Mix in 8 ounces of water, juice, soda, coffee or tea prior to administration, Post-op $ Given 11/09/2019 8:15 AM RFID ENGINEER 17 g $ Given 11/08/2019 8:44 AM RFID ENGINEER 17 g $ Given 11/07/2019 8:39 AM RFID ENGINEER 17 g potassium chloride ER (KLOR-CON M) tablet 20 mEq 20 mEq, Oral, DAILY WITH BREAKFAST, First dose on Tue11/05/19 at 0700, Until Discontinued, Do not crush or chew. $ Given 11/09/2019 8:17 AM RFID ENGINEER 20 mEq $ Given 11/08/2019 8:44 AM RFID ENGINEER 20 mEq $ Given 11/07/2019 8:39 AM RFID ENGINEER 20 mEq senna-docusate (SENOKOT-S) tablet 1 tablet 1 tablet, Oral, DAILY, First dose on Tue11/02/19 at 1815, Until Discontinued, Post-op $ Given 11/09/2019 8:15 AM RFID ENGINEER 1 tablet $ Given 11/08/2019 8:44 AM RFID ENGINEER 1 tablet $ Given 11/07/2019 8:39 AM RFID ENGINEER 1 tablet throat lozenge 1 lozenge 1 lozenge, Oral, EVERY 2 HOURS PRN, Sore Throat, Starting on Tue11/04/19 at 1014, Until Tue11/12/19 at 2106 documented in this encounter Active and Recently Administered Medications Due to Daylight Saving Time, this section may contain times in both RFID ENGINEER and CDT. Scheduled Medication Order 11/10/2019 11/11/2019 11/12/2019 amitriptyline (ELAVIL) tablet 25 mg 25 mg, Oral, AT BEDTIME, First dose on Tue11/01/19 at 2100, Until Discontinued 2140 ($ Given - Provider: Zahira Martinez RN) 2031 ($ Given - Provider: Zahira Martinez RN) apixaban (ELIQUIS) tablet 2.5 mg 2.5 mg, Oral, 2 TIMES DAILY, First dose on Tue11/05/19 at 0815, Until Discontinued 075 ($ Given - Provider: Jossie Eric)2140 ($ Given - Provider: Zahira Martinez RN) 0955 ($ Given - Provider: Jossie Eric)2031 ($ Given - Provider: Zahira Martinez RN) 0917 ($ Given - Provider: Linh Valencia RN) docusate sodium (COLACE) capsule 100 mg 100 mg, Oral, DAILY, First dose on Tue11/02/19 at 1815, Until Discontinued, Post-op 0756 ($ Given - Provider: Jossie Eric) 0956 ($ Given - Provider: Jossie Eric) 0916 (Not Administered - Provider: Linh Valencia RN - Reason: Patient Condition) DULoxetine (CYMBALTA) capsule 30 mg 30 mg, Oral, DAILY, First dose on Tue11/01/19 at 1530, Until Discontinued, Capsules should be swallowed whole and not chewed, crushed, or opened to be sprinkled on food or mixed with liquids. 0756 ($ Given - Provider: Jossie Eric) 0956 ($ Given - Provider: Jossie Eric) 0917 ($ Given - Provider: Linh Valencia, COLETTE) polyethylene glycol 3350 (MIRALAX) packet 17 g 17 g, Oral, DAILY, First dose on Tue11/02/19 at 1815, Until Discontinued, Mix in 8 ounces of water, juice, soda, coffee or tea prior to administration, Post-op 0757 (Not Administered - Provider: Jossie Eric - Reason: Refused-Patient) 0956 (Not Administered - Provider: Jossie Eric - Reason: Refused-Patient) 0917 (Not Administered - Provider: Linh Valencia RN - Reason: Patient Condition) senna-docusate (SENOKOT-S) tablet 1 tablet 1 tablet, Oral, DAILY, First dose on Tue11/02/19 at 1815, Until Discontinued, Post-op 0757 (Not Administered - Provider: Jossie Eric - Reason: Refused-Patient) 0956 (Not Administered - Provider: Jossie Eric - Reason: Refused-Patient) 0917 (Not Administered - Provider: Linh Valencia RN - Reason: Patient Condition) PRN Medication Order 11/10/2019 11/11/2019 11/12/2019 acetaminophen (TYLENOL) tablet 650 mg 650 mg, Oral, EVERY 4 HOURS PRN, Mild Pain, Starting on Tue11/02/19 at 1804, Until Tue11/12/19 at 2106, Post-op HYDROmorphone (DILAUDID) injection 0.5 mg 0.5 mg, Intravenous, EVERY 4 HOURS PRN, Severe Pain, Starting on Tue11/07/19 at 1200, Until Tue11/12/19 at 2106, Use IV when enteral not tolerated, ineffective, or refused. naloxone (NARCAN) injection 0.2 mg 0.2 mg, Intravenous, PRN, Other, If unable to arouse patient or if respiratory depression is present., 4 doses, Starting on Tue11/02/19 at 2155, Until Tue11/12/19 at 2106, Mix 0.4 mg Naloxone in 9 mL Normal Saline for slow IV push. Administer dilute Naloxone solution IV very slowly (5 mL over 2 minutes) while observing the patient response and titrating to effect. If no response, call Rapid Response, continue IV Naloxone at the same rate up to a total of 0.8 mg or 20 mL of diluted Naloxone, and notify physician immediately. oxyCODONE (immediate release) (ROXICODONE) tablet 5 mg 5 mg, Oral, EVERY 4 HOURS PRN, Breakthrough pain, Starting on Yulia 11/08/19 at 0547, Until Tue11/12/19 at 2106 2144 ($ Given - Provider: Zahira Martinez RN) 1203 ($ Given - Provider: Jossie Eric)2216 ($ Given - Provider: Zahira Martinez RN) 0917 ($ Given - Provider: Linh Valencia RN)1321 ($ Given - Provider: Linh Valencia RN)1721 ($ Given - Provider: Linh Valencia RN) oxyCODONE-acetaminophe n (PERCOCET) 5-325 MG tablet 1 tablet(Linked Group 1) 1 tablet, Oral, EVERY 4 HOURS PRN, Moderate Pain, Starting on Tue11/02/19 at 1804, Until Tue11/12/19 at 2106, Post-op 0302 (See Alternative - Provider: Cassie Parsons RN)0756 (See Alternative - Provider: Jossie Eric)1409 (See Alternative - Provider: Jossie Eric)1838 (See Alternative - Provider: Jossie Eric) 0101 (See Alternative - Provider: Zahira Martinez RN)0556 (See Alternative - Provider: Zahira Martinez RN)0956 (See Alternative - Provider: Jossie Eric)1638 (See Alternative - Provider: Enma Earl RN)2031 (See Alternative - Provider: Zahira Martinez RN) 0217 (See Alternative - Provider: Zahira Martinez RN)0622 (See Alternative - Provider: Zahira Martinez RN)1124 (See Alternative - Provider: Linh Valencia RN)1537 (See Alternative - Provider: Linh Valencia RN) oxyCODONE-acetaminophe n (PERCOCET) 5-325 MG tablet 2 tablet(Linked Group 1) 2 tablet, Oral, EVERY 4 HOURS PRN, Severe Pain, Starting on Tue11/02/19 at 1804, Until Tue11/12/19 at 2106, Post-op 0302 ($ Given - Provider: Cassie Parsons RN)0756 ($ Given - Provider: Jossie Eric)1409 ($ Given - Provider: Jossie Eric)1838 ($ Given - Provider: Jossie Eric) 0101 ($ Given - Provider: Zahira Martinez RN)0556 ($ Given - Provider: Zahira Martinez RN)0956 ($ Given - Provider: Jossie Eric)1638 ($ Given - Provider: Enma Earl RN)2031 ($ Given - Provider: Zahira Martinez RN) 0217 ($ Given - Provider: Zahira Martinez RN)0622 ($ Given - Provider: Zahira Martinez RN)1124 ($ Given - Provider: Linh Valencia RN)1537 ($ Given - Provider: Linh Valencia RN) phenol (CHLORASEPTIC) 1.4 % liquid Oral, PRN, Sore Throat, Starting on 11/04/19 at 1014, Until Tue11/12/19 at 2106, . WASTE DISPOSAL INSTRUCTIONS: Black Bin Disposal required. throat lozenge 1 lozenge 1 lozenge, Oral, EVERY 2 HOURS PRN, Sore Throat, Starting on 11/04/19 at 1014, Until 11/12/19 at 2106 Linked Groups Order Group 1: oxyCODONE-acetaminophen (PERCOCET) 5-325 MG tablet 1 tabletJump to med 1 tablet, Oral, EVERY 4 HOURS PRN, Moderate Pain, Starting on Tue11/02/19 at 1804, Until Tue11/12/19 at 2106, Post-op Or oxyCODONE-acetaminophen (PERCOCET) 5-325 MG tablet 2 tabletJump to med 2 tablet, Oral, EVERY 4 HOURS PRN, Severe Pain, Starting on Tue11/02/19 at 1804, Until Tue11/12/19 at 2106, Post-op documented in this encounter Care Teams Wool Washer Relationship Specialty Start Date End Date Esperanza Ho MD [address] [facility] [address] [place] [address] PCP - General 04/10/19 documented as of this encounter
--- OUTSIDE RECORDS SUMMARY | 2024-08-26 07:04 | XMS_ITS | Encounter Summary ---
Author Organization [facility] Address [address] [place] [address] Care Team Providers Care Early Childhood Lead Teacher Name Role Phone Esperanza Ho MD Primary Care Provider + Encounter Details Date Type Department Care Team (Latest Contact Info) Description 11/23/2019 Travel Social History Tobacco Use Types Packs/Day [...] on filedocumented in this encounter Care Teams Early Childhood Lead Teacher Relationship Specialty Start Date End Date Esperanza Ho MD [address] [place] [address] PCP - General 04/10/19 documented as of this encounter
--- OUTSIDE RECORDS SUMMARY | 2024-08-26 07:04 | XMS_ITS | Encounter Summary ---
Author Organization [facility] Address [address] [facility] [place] [address] Care Team Providers Care Pump Mechanic Name Role Phone Esperanza Ho MD Primary Care Provider + Reason for Visit * Reason Onset Date Comments MEDICATION REFILL 12/31/2019 Encounter Details Date Type Department Care Team (Late st Contact Info) Description 12/31/2019 Refill [facility] [address] [facility] [place] [address] Sammy Carrero MD [address] [facility] [address] [place] [address] MEDICATION REFILL Social History Tobacco [...] Telephone Encounter - Bernard Hayes, RN - 12/31/2019 10:18 AM CDT Pt is status post??L4-S1 ALIF, L4-S1 PISF [address] Dr[address] Carrero??on 11/02/2019. Pt reports adequate pain control at this time and requesting refill of pain medication. ? Last Fill 12/24/2019 Next Visit: 01/08/20 ? Orders placed and forwarded to Dr. Carrero for review.?? documented in this encounter Plan of Treatment Not on file documented as of this encounter Visit Diagnoses Diagnosis S/P lumbar spinal fusion- Primary Arthrodesis status documented in this encounter Care Teams Pump Mechanic Relationship Specialty Start Date End Date Esperanza Ho MD [address] [place] [address] PCP - General 04/10/19 documented as of this encounter
--- OUTSIDE RECORDS SUMMARY | 2024-08-26 07:04 | XMS_ITS | Encounter Summary ---
Author Organization [facility] Address [address] [facility] [place] [address] Care Team Providers Care Christian Counselor Name Role Phone Esperanza Ho MD Primary Care Provider + Reason for Referral * Procedure (Routine) - Closed Specialty Diagnoses / Procedures Referred By Contac t Referred To Contact Cardiology Diagnoses Spondylolisthesis at L4-L5 level Spinal stenosis of lumbar region with neurogenic claudication Lumbosacral radiculopathy at L5 Procedures EKG 12-LEAD Sammy Carrero MD [address] [facility] [address] [place] [id number] Referral ID Status Reason Start Date Expiration Date Visits Re quested Visits Authorized [id number] Closed 09/26/2019 03/24/2020 1 1 [facility] Reason for Visit * Reason Comments Pain Back Encounter Details Date Type Department Care Team (Late st Contact Info) Description 09/25/2019 1:30 PM DIRECT[employer] SAFET[employer]NCIL Office Visit [facility] [facility] [place] [address] Sammy Carrero MD [address] [facility] [address] [place] [phone] Spondylolisthesis at L4-L5 level (Primary Dx); Spinal stenosis of lumbar region with neurogenic claudication; Lumbosacral radiculopathy at L5 Social History Tobacco Use Types Packs/Day Years Used Date Smoking Tobacco: Never Smokeless Tobacco: Never Sex and Gender Information Value Date Recorded Sex Assigned at Not on file Gender Identity Not on file Sexual Orientation Not on file documented as of this encounter Last Filed Vital Signs Vital Sign Reading Time Taken Comments Blood Pressure 135/86 09/25/2019 3:16 PM [employer]NCIL Pulse 90 09/25/2019 3:16 PM [employer] Temperature 36.8 ??C (98.2 ??F) 09/25/2019 3:16 PM CS T Respiratory Rate 20 09/25/2019 3:16 PM [employer]NCIL Oxygen Saturation 100% 09/25/2019 3:16 PM [employer]NCIL Inhaled Oxygen Concentration - - Weight 96.2 kg (212 lb) 09/25/2019 3:16 PM [employer] Height 167.6 cm (5' 6 ) 09/25/2019 3:16 PM [employer]NC[employer] Body Mass Index 34.22 09/25/2019 3:16 PM [employer]NCIL documented in this encounter Progress Notes * Sammy Carrero MD - 10/03/2019 3:02 PM CST Orthopaedic Spine Surgery Attending Clinic Note Patient returns to clinic for CT follow up. She has otherwise been well without fever, cough, shortness of breath. She continues to be debilitated by left leg and back pain. She went to physical therapy once and therapist discontinued it secondary to her severe stenosis. No bowel or bladder problems. Oswestry 70. Vitals: 09/25/19 1516 BP: 135/86 Pulse: 90 Resp: 20 Temp: 98.2 ??F (36.8 ??C) SpO2: 100% Weight: 212 lb (96.2 kg) Height: 5' 6 (1.676 m) CT reviewed with normal bone density (HU 153). No spondylolysis. No ankylosis. Impression: lumbar spinal stenosis and spondylolisthesis in patient without osteopenia Plan: L4-S1 AP fusion. We reviewed the risks of surgery to include viscus injury, vascular injury, neural injury, loss of bowel and/or bladder control, permanent paralysis or weakness, failure to relieve pain or improve function, pseudarthrosis, infection, need for further surgery, blindness, stroke, heart attack, and . We reviewed the operative plan, perioperative care plan, and postoperative rehabilitative plan in detail. Patient voiced understanding and wished to proceed as above and will contact me should concerns or questions arise in the interim. Total time spent was 15 minutes with greater than 50% of time spent counseling and coordination of care. Sammy Carrero MD FACS [employer] * Cyrus Faustin - 09/25/2019 3:17 PM CST Patient is here for MRI follow up pain today is 8 [employer] documented in this encounter Plan of Treatment Not on file documented as of this encounter Results * XR CHEST 1VW (10/22/2019 12:37 PM [employer]NC[employer]) Anatomical Region Laterality Modality Chest Radiographic Mayda ging 10/22/2019 1:43 PM [employer]NCIL Impressions 10/23/2019 8:23 AM [employer]NCIL IMPRESSION: No acute pulmonary process. Dictated by Leda Orourke MD (radiology therapist). I, Dr. CORTES BUTLER have personally reviewed and interpreted this examination/study. This report was electronically signed by CORTES BUTLER ??on 10/23/2019 8:23 AM . Narrative 10/23/2019 8:23 AM [employer]NCIL EXAMINATION: XR CHEST 1VW HISTORY: M43.16: Spondylolisthesis [...] pulmonary process. Dictated by Leda Orourke MD (radiology therapist). I, Dr. CORTES BUTLER have personally reviewed and interpreted this examination/study. This report was electronically signed by CORTES BUTLER on 10/23/2019 8:23 AM . Sammy Carrero MD DIAGNOSTIC IMAGING O RDERABLES * (ABNORMAL) URINALYSIS W/MICROSCOPIC NO CULTURE (10/22/2019 12:09 PM [employer]) Color UA Straw Straw, Yellow, Colorless 10/22/2019 1:24 PM [facility] Clarity UA Slt Cloudy Clear, Slt Cloudy 10/22/2019 1:24 PM [facility] Specific Garrison UA 1.008 1.005 - 1.030 10/22/2019 1:24 PM [facility] pH UA 6.0 5.0 - 8.0 pH 10/22/2019 1:24 PM [facility] Protein UA Negative Negative mg/dL 10/22/2019 1:24 PM [facility] Glucose UA Negative Negative mg/dL 10/22/2019 1:24 PM [facility] Ketone UA Negative Negative mg/dL 10/22/2019 1:24 PM [facility] Bilirubin UA Negative Negative mg/dL 10/22/2019 1:24 PM [facility] Blood UA Negative Negative 10/22/2019 1:24 PM [facility] Nitrite UA Negative Negative 10/22/2019 1:24 PM [facility] Leukocyte Esterase 3+(A) Negative 10/22/2019 1:24 PM [facility] Urobilinogen UA Negative Negative mg/dL 10/22/2019 1:24 PM [facility] RBC UA 3-5 None Seen, 0-2, 3-5 /HPF 10/22/2019 1:24 PM [facility] WBC UA 11-20(A) None Seen, 0-5 /HPF 10/22/2019 1:24 PM [facility] Bacteria UA 1+(A) None, Trace /HPF 10/22/2019 1:24 PM [facility] Squamous Epithelial Cells UA 3-5(A) None Seen, 0-2 /HPF 10/22/2019 1:24 PM [facility] [employer] [facility] Renal Epithelial Cells UA 0-2 None Seen, 0-2 /HPF 10/22/2019 1:24 PM [facility] [facility] Mucus UA 1+ None, 1+ /LPF 10/22/2019 1:24 PM [facility] Urine URINE SPECIMEN OBTAINED BY CLEAN CATCH PROCEDURE / Unknown Collection / Unknown 10/22/2019 12:09 PM [employer] 10/22/2019 1:07 PM [employer] Narrative [facility] - 10/22/2019 1:24 PM [employer]NCIL Sammy Carrero MD LAB - URINALYSIS ORD ERABLES Performing Organization Address City/[facility]/ZIP Co de Phone Number [address] [phone] * TYPE + SCREEN PANEL (10/22/2019 12:09 PM [employer]NC[employer]) Antibody Screen POS 0 1:26 PM [facility] [employer]NCIL [facility] BLOOD BANK LAB ABO Rh A POS 10/22/2019 1:26 PM [facility] [employer] B[facility]OD [facility] LAB Blood Bank BLOOD SPECIMEN / Unknown Lab Venipuncture / Unknown 10/22/2019 12:09 PM [employer]NCIL 10/22/2019 12:32 PM [employer] Sammy Carrero MD LAB - BLOOD BANK ORD ERABLES [facility] B[facility]OD [facility] LAB [address] [place] [address] * PTT [facility] (10/22/2019 12:09 PM [employer]AFETY COUNCIL) APTT 28.7 23.0 - 38.4 Seconds 10/22/2019 2:11 PM [facility] [employer]NCIL [facility] Comment: * Please Note: ??New therapeutic range for heparin therapy * Suggested therapeutic range for full dose I.V. unfractionated heparin therapy for venous thromboembolism is 71 to 109 seconds. Blood BLOOD SPECIMEN / Unknown Lab Venipuncture / Unknown 10/22/2019 12:09 PM [employer]NCIL 10/22/2019 1:07 PM [employer] Sammy Carrero MD LAB - COAGULATION OR DERABLES Performing Organization Address [facility] Co de Phone Number [address] [phone] * PT-INR [facility] (10/22/2019 12:09 PM [employer]NCIL) Pathologist [facility] PT 12.5 12.1 - 14.8 Seconds 10/22/2019 2:11 PM [facility] INR 1.0 See Comment 10/22/2019 2:11 PM [facility]NCIL [facility] Comment:The suggested therap eutic range for standard coumadin (warfarin) therapy is an INR of 2.0-3.0. For high-risk patients (Mechanical Mitral Valve Prosthesis, etc.), the suggested prophylactic therapeutic range is an INR of 2.5-3.5. Blood BLOOD SPECIMEN / Unknown Lab Venipuncture / Unknown 10/22/2019 12:09 PM [employer]NCIL 10/22/2019 1:07 PM [employer]NCIL Sammy Carrero MD LAB - COAGULATION OR DERABLES Performing Organization Address [facility]/ZIP Co de Phone Number [address] [phone] * CULTURE URINE (10/22/2019 12:09 PM DIRECT[employer]NCIL) Culture Urine 10,000-50,000 CFU/mL urogenital dylon LETA 10/24/2019 3:58 AM DIRECT[facility] SAFETY COUNCIL [facility] MICROBIOLOGY Urine URINE SPECIMEN OBTAINED BY CLEAN CATCH PROCEDURE / Unknown Collection / Unknown 10/22/2019 12:09 PM [employer]NCIL 10/22/2019 1:07 PM [employer]NCIL Sammy Carrero MD LAB - MICROBIOLOGY O RDERABLES [facility] MICROBIOLOGY [address] [place] [address], [place] [phone] * (ABNORMAL) COMPREHENSIVE METABOLIC PANEL (10/22/2019 12:09 PM [employer]NCIL) BUN 8 7 - 26 mg/dL 10/22/2019 2:25 PM [facility] Creatinine 0.7 0.6 - 1.2 mg/dL 10/22/2019 2:25 PM [facility] Sodium 140 136 - 145 mmol/L 10/22/2019 2:25 PM [facility] Potassium 4.1 3.5 - 4.5 mmol/L 10/22/2019 2:25 PM [facility] Chloride 103 98 - 107 mmol/L 10/22/2019 2:25 PM [facility] CO2 28 22 - 29 mmol/L 10/22/2019 2:25 PM [facility] Glucose 88 70 - 115 mg/dL 10/22/2019 2:25 PM [facility] Calcium 9.8 8.4 - 10.2 mg/dL 10/22/2019 2:25 PM [facility] Protein Total 8.5(H) 6.0 - 8.3 g/dL 10/22/2019 2:25 PM [facility] Albumin 4.1 3.4 - 5.0 g/dL 10/22/2019 2:25 PM [facility] Bilirubin Total 0.5 0.2 - 1.2 mg/dL 10/22/2019 2:25 PM [facility] Alkaline Phosphatase 98 40 - 150 Units/L 10/22/2019 2:25 PM [facility] ALT 24 0 - 55 Units/L 10/22/2019 2:25 PM [facility] AST 22 5 - 34 Units/L 10/22/2019 2:25 PM [facility] Anion Gap 13 8 - 18 10/22/2019 2:25 PM [facility] BUN/Creatinine Ratio 11 7 - 23 10/22/2019 2:25 PM [facility] Osmolality Calculated 288 270 - 300 mOsm/kg 10/22/2019 2:25 PM [facility] Albumin/Globulin Ratio 0.9(L) 1.1 - 2.3 10/22/2019 2:25 PM [facility] eGFR >60 >60 mL/min/1.7 3 m2 10/22/2019 2:25 PM [facility] Blood BLOOD SPECIMEN / Unknown Lab Venipuncture / Unknown 10/22/2019 12:09 PM [employer]NC[employer] 10/22/2019 1:07 PM [employer]NCIL Sammy Carrero MD LAB - CHEMISTRY [facility] Organization Address City/State/ZIP Co de Phone Number [facility] [address] [phone] * (ABNORMAL) CBC WITH DIFFERENTIAL (10/22/2019 12:09 PM DIRECTOR SAFETY COUNCIL) WBC 3.5 3.5 - 10.5 10? 3 /uL 10/22/2019 1:16 PM [facility] RBC 5.02(H) 3.90 - 5.00 10? 6 /uL 10/22/2019 1:16 PM [facility] Hemoglobin 13.5 12.0 - 15.5 g/dL 10/22/2019 1:16 PM [facility] Hematocrit 43.5 35.0 - 45.0 % 10/22/2019 1:16 PM [facility] MCV 86.7 81.0 - 97.0 fL 10/22/2019 1:16 PM [facility] MCH 26.9(L) 28.0 - 34.0 pg 10/22/2019 1:16 PM [facility] MCHC 31.0(L) 32.0 - 36.0 g/dL 10/22/2019 1:16 PM [facility] Platelet Count 188 150 - 400 10? 3 /uL 10/22/2019 1:16 PM [facility] RDW-SD 44.0 36.0 - 50.0 fL 10/22/2019 1:16 PM [facility] RDW-CV 13.8 11.2 - 14.8 % 10/22/2019 1:16 PM [facility] MPV 10.3 9.3 - 12.8 fL 10/22/2019 1:16 PM [facility] nRBC Absolute 0.00 0 10? 3 /uL 10/22/2019 1:16 PM [facility] nRBC Auto 0.0 0 /100 WBC 10/22/2019 1:16 PM [facility] Neutrophils % 49.1 35.0 - 70.0 % 10/22/2019 1:16 PM [facility] Lymphocytes % 27.0 19.7 - 55.1 % 10/22/2019 1:16 PM [facility] Monocytes % 15.8(H) 3.0 - 15.0 % 10/22/2019 1:16 PM [facility] Eosinophils % 7.2(H) 0.0 - 6.0 % 10/22/2019 1:16 PM [facility] Basophil % 0.6 0.0 - 1.5 % 10/22/2019 1:16 PM [facility] Neutrophils Absolute 1.7 1.6 - 7.0 10? 3 /uL 10/22/2019 1:16 PM [facility] Lymphocyte Absolute 0.9 0.8 - 2.9 10? 3 /uL 10/22/2019 1:16 PM [facility] Monocytes Absolute 0.55 0.14 - 0.66 10? 3 /uL 10/22/2019 1:16 PM [facility] Eosinophils Absolute 0.25 0.00 - 0.45 10? 3 /uL 10/22/2019 1:16 PM [facility] Basophils Absolute 0.02 0.00 - 0.06 10? 3 /uL 10/22/2019 1:16 PM [facility] Immature Granulocytes % 0.3 0.0 - 1.0 % 10/22/2019 1:16 PM [facility] Blood BLOOD SPECIMEN / Unknown Lab Venipuncture / Unknown 10/22/2019 12:09 PM [employer] 10/22/2019 1:07 PM [employer] Sammy Carrero MD LAB - HEMATOLOGY ORD ERABLES [facility] [address] [phone] * EKG 12-LEAD (10/22/2019 11:04 AM [employer]NCIL) Ventricular Rate 81 BPM [facility] Atrial Rate 81 BPM [facility] P-R Interval 126 ms [facility] QRS Duration ms 78 ms [facility] Q-T Interval ms 364 ms [facility] MUSE QTC Calculation (Bezet) 422 ms [facility] Calculated P [place] 68 degrees [facility] Calculated R [place] 45 degrees [facility] Calculated T [place] 30 degrees [facility] Interpretation EKG NORMAL SINUS RHYTHM NORMAL ECG NO PREVIOUS ECGS AVAILABLE Confirmed by David Oscar ([id number]), commissioning editor Bernardino Barreto ([id number]) on 11/28/2019 6:23:48 PM [facility] MUSE 10/22/2019 11:0 4 AM [employer]NCIL 11/28/2019 6:23 PM CDT Sammy Carrero MD ECG ORDERABLES [facility] MUSE documented in this encounter Visit Diagnoses Diagnosis Spondylolisthesis at L4-L5 level- Primary Spinal stenosis of lumbar region with neurogenic claudication Spinal stenosis, lumbar region, with neurogenic claudication Lumbosacral radiculopathy at L5 Thoracic or lumbosacral neuritis or radiculitis, unspecified Spondylolisthesis at L4-L5 level Spinal stenosis of lumbar region with neurogenic claudication Spinal stenosis, lumbar region, with neurogenic claudication Lumbosacral radiculopathy at L5 Thoracic or lumbosacral neuritis or radiculitis, unspecified documented in this encounter Care Teams Christian Counselor Relationship Specialty Start Date End Date Esperanza Ho MD [address] [place] [address] PCP - General 04/10/19 documented as of this encounter
--- OUTSIDE RECORDS SUMMARY | 2024-08-26 07:04 | XMS_ITS | Encounter Summary ---
Author Organization [facility] Address [address] [facility] [place] [address] Care Team Providers Care Metal Welder Name Role Phone Esperanza Ho MD Primary Care Provider + Reason for Referral * Procedure (Routine) - Closed Specialty Diagnoses / Procedures Referred By Contac t Referred To Contact Cardiology Diagnoses Spondylolisthesis at L4-L5 level Spinal stenosis of lumbar region with neurogenic claudication Lumbosacral radiculopathy at L5 Procedures EKG 12-LEAD Sammy Carrero MD [address] [facility] [address] [place] [address] Referral ID Status Reason Start Date Expiration Date Visits Re quested Visits Authorized [id number] Closed 09/26/2019 03/24/2020 1 1 MED PHYSICIAN Encounter Details Date Type Department Care Team (Latest Contact Info) Description 10/22/2019 11:00 AM OCC MED PHYSICIAN - 10/22/2019 11:59 AM OCC MED PHYSICIAN Hospital Encounter [facility] EKG/[facility]TER [address] [place] [address] Cecilia Hannah MD [address] [facility] [address] [place] [phone] Discharge Disposition: Home or Self Care Social [...] Procedure Name Priority Date/Time Associated Diagnosis Comments CARDIAC EKG ORDER 12/22/2019 6:5 3 PM CDT EKG 12-LEAD Routine 10/22/2019 11:04 AM OCC MED PHYSICIAN Spondylolisthesis at L4-L5 level Spinal stenosis of lumbar region with neurogenic claudication Lumbosacral radiculopathy at L5 documented in this encounter Results * CARDIAC EKG ORDER (12/22/2019 6:53 PM CDT) Narrative 12/22/2019 6:53 PM CDT Ordered by an unspecified provider. Scanned Document CARDIAC SERVICES ORD ERABLES * EKG 12-LEAD (10/22/2019 11:04 AM OCC MED PHYSICIAN) Ventricular Rate 81 BPM [facility] Atrial Rate 81 BPM [facility] MUSE P-R Interval 126 ms [facility] MUSE QRS Duration ms 78 ms [facility] MUSE Q-T Interval ms 364 ms [facility] MUSE QTC Calculation (Bezet) 422 ms [facility] MUSE Calculated P [place] 68 degrees [facility] Calculated R [place] 45 degrees [facility] Calculated T [place] 30 degrees [facility] Interpretation EKG NORMAL SINUS RHYTHM NORMAL ECG NO PREVIOUS ECGS AVAILABLE Confirmed by David Oscar ([id number]), news assignment editor Bernardino Barreto ([id number]) on 11/28/2019 6:23:48 PM [facility] MUSE 10/22/2019 11:0 4 AM OCC MED PHYSICIAN 11/28/2019 6:23 PM CDT Sammy Carrero MD ECG ORDERABLES [facility] documented in this encounter Visit Diagnoses Diagnosis Spondylolisthesis at L4-L5 level Spinal stenosis of lumbar region with neurogenic claudication Spinal stenosis, lumbar region, with neurogenic claudication Lumbosacral radiculopathy at L5 Thoracic or lumbosacral neuritis or radiculitis, unspecified documented in this encounter Care Teams Metal Welder Relationship Specialty Start Date End Date Esperanza Ho MD [address] [place] [address] PCP - General 04/10/19 documented as of this encounter
--- OUTSIDE RECORDS SUMMARY | 2024-08-26 07:04 | XMS_ITS | Encounter Summary ---
Author Organization [facility] Address [address] [facility] [place] [address] Care Team Providers Care Litharge Mill Operator Name Role Phone Esperanza Ho MD Primary Care Provider + Reason for Visit * Reason Onset Date Comments Future Appointment 01/14/2020 Encounter Details Date Type Department Care Team (Late st Contact Info) Description 01/14/2020 Telephone [facility] PT [address] [place] [address] Nissa Holliday Future Appointment Social History Tobacco Use Types Packs/Day Years [...] No 11/01/2019 documented as of this encounter Progress Notes * Nissa Holliday - 01/14/2020 11:12 AM CDT Patient wants to check with dr to see if therapy is needed-1ST ATTEMPT documented in this encounter Plan of Treatment Not on file documented as of this encounter Visit Diagnoses Not on filedocumented in this encounter Care Teams Litharge Mill Operator Relationship Specialty Start Date End Date Esperanza Ho MD [address] [facility] [address] [place] [address] PCP - General 04/10/19 documented as of this encounter
--- OUTSIDE RECORDS SUMMARY | 2024-08-26 07:04 | XMS_ITS | Encounter Summary ---
Author Organization [facility] Address [address] [place] [address] Care Team Providers Care Jail Officer Name Role Phone Esperanza Ho MD Primary Care Provider + Reason for Visit * Reason Onset Date Comments MEDICATION REFILL 01/09/2020 Encounter Details Date Type Department Care Team (Late st Contact Info) Description 01/09/2020 Refill [facility] - [facility] [address] [facility] [place] [address] Sammy Carrero MD [address] [place] [address] MEDICATION REFILL Social History Tobacco [...] Telephone Encounter - Bernard Hayes, RN - 01/09/2020 11:01 AM CDT Pt is status post??L4-S1 ALIF, L4-S1 PISF [address] Dr[address] Carrero??on 11/02/2019. Pt reports adequate pain control at this time??and requesting refill of pain medication.? Last Fill??12/31/2019 Last Visit: 01/08/2020 Next Visit: 04/15/2020 ? Orders placed and forwarded to Dr. Carrero for review.?? documented in this encounter Plan of Treatment Not on file documented as of this encounter Visit Diagnoses Diagnosis S/P lumbar spinal fusion- Primary Arthrodesis status documented in this encounter Care Teams Jail Officer Relationship Specialty Start Date End Date Esperanza Ho MD [address] [place] [address] PCP - General 04/10/19 documented as of this encounter
--- OUTSIDE RECORDS SUMMARY | 2024-08-26 07:04 | XMS_ITS | Encounter Summary ---
Author Organization [facility] Address [address] [place] [address] Care Team Providers Care Electronic Data Interchange Specialist Name Role Phone Esperanza Ho MD Primary Care Provider + Encounter Details Date Type Department Care Team (Late st Contact Info) Description 10/30/2019 Orders Only [facility] - [facility] [address] [facility] [place] [id number] Bernard Hayes, RN [address] [place] [address] Social History Tobacco Use Types Packs/Day Years [...] on filedocumented in this encounter Care Teams Electronic Data Interchange Specialist Relationship Specialty Start Date End Date Esperanza Ho MD [address] [place] [address] PCP - General 04/10/19 documented as of this encounter
--- OUTSIDE RECORDS SUMMARY | 2024-08-26 07:04 | XMS_ITS | Encounter Summary ---
Author Organization [facility] Address [address] [facility] [place] [address] Care Team Providers Care Rodeo Rider Name Role Phone Esperanza Ho MD Primary Care Provider + Reason for Visit * Reason Onset Date Comments Future Appointment 02/28/2020 Encounter Details Date Type Department Care Team (Late st Contact Info) Description 02/28/2020 Telephone [facility] [address] [place] [address] Nissa Holliday Future Appointment Social [...] encounter Progress Notes * Nissa Holliday - 02/28/2020 10:28 AM CDT Therapy scheduling message left with callback number-[id number] ATTEMPT documented in this encounter Plan of Treatment Not on file documented as of this encounter Visit Diagnoses Not on filedocumented in this encounter Care Teams Rodeo Rider Relationship Specialty Start Date End Date Esperanza Ho MD [address] [place] [address] PCP - General 04/10/19 documented as of this encounter
--- OUTSIDE RECORDS SUMMARY | 2024-08-26 07:04 | XMS_ITS | Encounter Summary ---
Author Organization [facility] Address [address] [place] [address] Care Team Providers Care Restorative Aide Name Role Phone Esperanza Ho MD Primary Care Provider + Reason for Visit * Auth/Cert Specialty Diagnoses / Procedures Referred By Amy amaro Referred To Contact Diagnoses Diagnosis unknown LUMBAR STENOSIS, LUMBAR SPONDYLOLISTHESIS, LUMBAR RADICULOPATHY Procedures FUSION ANTERIOR LUMBAR INTERBODY (ALIF) FUSION TRANSFORAMINAL LUMBAR INTERBODY (TLIF) Referral ID Status Reason Start Date Expiration Date Visits Re quested Visits Authorized [id number] 1 1 Encounter Details Date Type Department Care Team (Late st Contact Info) Description 11/02/2019 7:30 AM GUN MECHANIC - 11/02/2019 4:05 PM [facility] Surgery [facility] [address] [place] [id number] Sammy Carrero MD [address] [place] [address] L4/5 L5/S1 ANTERIOR LUMBAR INTERBODY FUSION Surgery Details Date/Time Status Location OR Service Patient Class Case Class Case Type Trauma Case? 11/02/2019 7:30 AM Posted [facility] OR OR 16 Orthopedics Inpatient Panel 1 Procedure LRB Anes Op Region Wound Class Comments L4/5 L5/S1 ANTERIOR LUMBAR I NTERBODY FUSION N/A General Spine Lumbar Clean L4-S1 POSTERIOR INTRUMENTED SPINAL FUSION, LEFT L5 NERVE DECOMPRESSION N/A General Back Clean Surgeon Surgeon Role Service Panel Cecilia Blackwood MD Surgeon Second General 1 Sammy Carrero MD Primary Orthopedics 1 Julien Stern Jr., MD Resident - Assisting Orthop edics 1 Special Needs [id number] KOFI TABLE- FLAT TOP 1ST,TPS POWER, [employer] IMPLANTS *. Brielle will be assisting Dr. Carrero* documented in this encounter Social History Tobacco [...] Sign Reading Time Taken Comments Blood Pressure 162/83 11/02/2019 6:35 AM GUN MECHANIC Pulse 86 11/02/2019 6:35 AM GUN MECHANIC Temperature 36.9 ??C (98.4 ??F) 11/02/2019 6:35 AM CS T Respiratory Rate 18 11/02/2019 4:02 AM GUN MECHANIC Oxygen Saturation 97% 11/02/2019 6:35 AM GUN MECHANIC Inhaled Oxygen Concentration - - Weight 94.3 kg (208 lb) 11/01/2019 2:24 PM GUN MECHANIC Height 167.6 cm (5' 6 ) 11/01/2019 2:24 PM GUN MECHANIC Body Mass Index 33.57 11/01/2019 2:24 PM GUN MECHANIC documented in this encounter Functional Status Functional [...] CDT Physician Discharge Summary Patient Name: Saray Teague Whitten Date of : 1960 Admit date: [...] diagnosis is: Lumbar stenosis with neurogenic claudication [1458587] Follow up with Primary Care Provider (PCP) [...] Specific Question Answer Comments Follow Up Instructions: [facility] [phone], will call you before first visit Discharge time: less than 30 minutes. Meena Machado MD 11/10/2019 7:53 AM documented in this encounter Discharge Instructions * Discharge Instructions* Meena Machado MD - 11/09/2019 10:20 AM GUN MECHANIC Orthopedic Surgery Inpatient Discharge Instructions [facility]position[facility] jail facility Diet: Resume home diet Wound care: [...] Follow up as previously scheduled Contact information: [address] [place] [address] [phone] Sammy Carrero MD . Specialty: Orthopedic Surgery Why: Please call the number provided to schedule a follow up appointment with Dr. Carrero in 2 weeks. Contact information: Susie Hernandes [facility] [address] General Postsurgical Instructions You may expect to [...] to your surgical site. ??? Only take viwd-qyw-vzybffw or prescription medicines for pain, discomfort, or [...] tenderness near or in the surgical site. MECHANIC documented in this encounter Medications at Time [...] Hernandez COTA - 11/12/2019 3:44 PM CDT [facility] Physical Medicine and Rehabilitation Occupational Therapy Progress Note Patient: Saray Whitten Med Record Number: [id number] Date of : 1960 Age: [age] year [...] for further education on socks aid or technical communication teacher. Agreeable to demo of long handle shoe [...] and spine precautions - MET 11/10 ?? Residential Goal:Patient to discharge to appropriate next level [...] walker. Referral for wheeled walker given to [facility] onsite service center representative, Sushma Prince [phone]. I have made referral for home care to onsite intake service center representative, Rocio [phone]. Await response. 1530 update.. Wheeled walker delivered to bedside per [facility] Sushma Ch For home use. Acceptance from [facility]. Confirmed with ortho spine that home health may see pt or Tuesday to open case. Ortho spine states they will see pt to determine discharge definitively. * Gayla Hernandez COTA - 11/12/2019 10:04 AM CDT [facility] Physical Medicine and Rehabilitation Occupational Therapy Patient Name Saray Whitten Date of 1960 Age [age] year old 11/12/19 1004 Missed Visit Missed Visit Other (Comment) Pt found working in gan with physical therapy at time of attempt. DIGNA Trivedi Occupational Therapist 11/12/2019 * Alberta Stafford, PT - 11/12/2019 9:55 AM CDT [facility] Physical Medicine and Rehabilitation PhysicalTherapy Progress Note Patient: Saray Whitten Med Record Number: [id number] Date of : 1960 Age: [age] year [...] will ambulate??125??feet with Minimal assist??and appropriate AD? Customer Care Consultant Goal: Patient to be independent/baseline with functional [...] with family in room and with RN, Linh mendoza. Alberta Stafford, PT 11/12/2019 * Sammy Carrero MD - 11/12/2019 6:32 AM CDT [facility] Orthopedic Spine Surgery Daily Progress Note Saray Whitten, 59 year old, female : 1960 CSN: [id number] Primary Care Physician: Esperanza Ho MD - [...] Procedure Component Value - Date/Time CULTURE URINE [[id number]] Collected: 10/22/19 1209 Lab Status: Final result Specimen: Urine Clean Catch Updated: 10/24/199 Culture Urine 10,000-50,000 CFU/mL urogenital dylon Physical [...] Kelly COTA - 11/11/2019 12:40 PM CDT [facility] Physical Medicine and Rehabilitation Occupational Therapy Progress Note Patient: Saray Whitten [facility] Record Number: [id number] Date of : 1960 Age: [age] year old Spoke with PT, patient about returning home, MD team on board. Discharge Recommendation: Patient should [...] Dressing: Stand By Assist doff socks with technical communication teacher, don socks with sock aid, and don/doff pants with technical communication teacher, extra time, no teaching needed for AE, [...] understanding of instructions given Equipment Issued: LHS, technical communication teacher, sock aid. Update Treatment Plan/Goals : Patient [...] and spine precautions - MET 11/10 ?? Residential Goal:Patient to discharge to appropriate next level [...] II, PT - 11/11/2019 9:30 AM CDT [facility] Physical Medicine and Rehabilitation PhysicalTherapy Progress Note Patient: Saray Whitten Med Record Number: [id number] Date of : 1960 Age: [age] year [...] will ambulate??125??feet with Minimal assist??and appropriate AD Residential Goal: Patient to be independent/baseline with functional [...] Gray MD - 11/11/2019 6:17 AM CDT [facility] Orthopedic Spine Surgery Daily Progress Note Saray Whitten, 59 year old, female : 1960 CSN: [id number] Primary Care Physician: Esperanza Ho MD - [...] Recent Labs Component Name 11/10/19 02411/09/19 0248 11/08/19 024 WBC 7.8 7.3 6.5 HGB 8.1* 8.1* 8.4* HCT 26.6* 25.5* 26.8* PLTCOUNT 289 268 253 Recent Labs Component Name 10/22/19 120 INR 1.0 Cultures Microbiology Results (Displays last 21 days for this encounter ONLY) Procedure Component Value - Date/Time CULTURE URINE [[id number]] Collected: 10/22/19 120 Lab Status: Final result [...] II, PT - 11/10/2019 1:17 PM CST [facility] Department of Physical Medicine & Rehabilitation Progress Note Patient: Saray Whitten [facility] Record Number: [id number] Date of : 1960 Age: [age] year old 11/10/19 1317 Missed Visit Missed Visit Refused Patient refused therapy intervention due to Other (Comment) (Eating Lunch) Patient currently eating lunch. Patient wishes to eat lunch at this time. Patient reports working with OT recently. PT will attempt to see patient again tomorrow. Quique Gomez II PT 11/10/2019 2:22 PM MECHANIC * Yael Kelly COTA - 11/10/2019 1:05 PM CST [facility] Physical Medicine and Rehabilitation Occupational Therapy Progress Note Patient: Saray Teague [facility] Record Number: [id number] Date of : 1960 Age: [age] year [...] Dressing: Stand By Assist doff socks with technical communication teacher, don socks with sock aid, and don/doff underwear/pants with technical communication teacher, extra time, and education provided t opt [...] Education:?good, safety education and spine precautions ?? Customer Care Consultant Goal:Patient to discharge to appropriate next level of inpatient care ?? If patient is discharged from the facility, this note serves as a discharge note if further occupational therapy visits did not occur. Following therapy session, patient left in bed, with call light within reach, with family in room and with RN/CP rehab cues written on white board. DIGNA Hewitt MECHANIC * Jossie Eric - 11/10/2019 10:25 AM CST Problem: Low Fall Risk (Score 7-10) Goal: Patient will remain as independent as possible. Outcome: Ongoing Problem: Skin Integrity Goal: Skin integrity is maintained or improved Outcome: Ongoing Problem: Daily Care Goal: Daily care needs are met Outcome: Ongoing Problem: Fall Risk Goal: Fall risk and fall related injury risk are minimized Outcome: Ongoing MECHANIC * Sammy Carrero MD - 11/10/2019 7:16 AM CST [facility] Orth[facility] Spine Surgery Daily Progress Note Saray Whitten, 59 year old, female : 1960 CSN: [id number] Primary Care Physician: Esperanza Ho MD - [...] 33.57 kg/m2 Labs Recent Labs Component Name 11/10/1924811/09/19 0248 11/08/19248 WBC 7.8 7.3 6.5 HGB 8.1* 8.1* 8.4* HCT 26.6* 25.5* 26.8* PLTCOUNT 289 268 253 Recent Labs Component Name 10/22/19 120 INR 1.0 Cultures Microbiology Results (Displays last 21 days for this encounter ONLY) Procedure Component Value - Date/Time CULTURE URINE [[id number]] Collected: 10/22/191208 Lab Status: Final result Specimen: [...] to home by Tuesday. Sammy Carrero MD MECHANIC * Ivanna Wright RN - 11/09/2019 5:02 PM CST Case management follow for discharge . Await authorization to be obtained by [facility]. auth request has been submitted per Beena [phone], service center representative [facility]. MECHANIC * Jossie Eric - 11/09/2019 12:47 PM [...] Daily care needs are met Outcome: Ongoing MECHANIC * Nella Mccord OT - 11/09/2019 11:45 AM CST [facility] Physical Medicine and Rehabilitation Occupational Therapy Progress Note Patient: Saray Whitten Med Record Number: [id number] Date of : 1960 Age: [age] year [...] socks while sitting EOB using sock-aide and technical communication teacher. Toileting/Transfers: not tested. Mobility: Assist device: none [...] none. Pt educated on long-handled bath sponge, technical communication teacher and sock-aide. Patient instructed in and demonstrated [...] pain Education:?good, safety education and spine precautions Customer Care Consultant Goal:Patient to discharge to appropriate next level of inpatient care If patient is discharged from the facility, this note serves as a discharge note if further occupational therapy visits did not occur. Following therapy session, patient left in bed, with call light within reach, with RNJossie aware and with RN/CP rehab cues written on white board. Nella Mccord OT MECHANIC * Naomi Sierra LCSW - 11/09/2019 11:15 AM CST SW contacted Beena, [facility]ison with [facility], to inquire about insurance authorization. Beena stated she would contact this SW once auth was obtained. Naomi Sierra LCSW 11/09/2019 8:41 PM [id number] MECHANIC * Quique Gomez II, PT - 11/09/2019 9:30 AM CST [facility] Physical Medicine and Rehabilitation PhysicalTherapy Progress Note Patient: Saray Whitten Med Record Number: [id number] Date of : 1960 Age: [age] year [...] will ambulate??125??feet with Minimal assist??and appropriate AD Residential Goal: Patient to discharge to appropriate next level of inpatient care. Update Treatment Plan: Continue per current PT POC If patient is discharged from the facility, this note serves as a discharge note if further physical therapy visits did not occur. Following therapy session, patient left in bed, with bed alarm on, with call light within reach, with family in room, with RNJossie and with RN/CP rehab cues written on white board. Quique Gomez II, PT 11/09/2019 MECHANIC * Sammy Carrero MD - 11/09/2019 6:06 AM CST [facility] Orthopedic Spine Surgery Daily Progress Note Saray Whitten, 59 year old, female : 1960 CSN: [id number] Primary Care Physician: Esperanza Ho MD - [...] Procedure Component Value - Date/Time CULTURE URINE [[id number]] Collected: 10/22/19 1209 Lab Status: Final result [...] with the doctor above. Sammy Carrero MD MECHANIC * Marianne Covarrubias RN - 11/08/2019 1:25 PM CST [facility] Rehab following. [facility] Will sign-off. Please re-refer if appropriate. Thank you for the referral, Marianne Covarrubias RN MSN (covering for Sabina Harrington RN BSN) Clinical Liaison [facility] [phone] MECHANIC * Eliza Hernandes PT - 11/08/2019 12:00 PM CST [facility] Physical Medicine and Rehabilitation PhysicalTherapy Progress Note Patient: Saray Whitten Med Record Number: [id number] Date of : 1960 Age: [age] year [...] ambulate??125??feet with Minimal assist??and appropriate AD ?? Customer Care Consultant Goal(s): Patient to discharge to appropriate next level of inpatient care Update Treatment Plan: Continue per POC If patient is discharged from the facility, this note serves as a discharge note if further physical therapy visits did not occur. Following therapy session, patient left in bed, with call light within reach and with family in room. Eliza Hernandes, PT 11/08/2019 MECHANIC * Nella Mccord, OT - 11/08/2019 9:37 AM CST [facility] Physical Medicine and Rehabilitation Occupational Therapy Progress Note Patient: Saray Whitten Med Record Number: [id number] Date of : 1960 Age: [age] year [...] pain Education:?good, safety education and spine precautions Residential Goal:Patient to discharge to appropriate next level of inpatient care If patient is discharged from the facility, this note serves as a discharge note if further occupational therapy visits did not occur. Following therapy session, patient left in patient bedside chair, with call light within reach, with family in room, with RNMary Kate aware and with RN/CP rehab cues written on white board. Nella Mccord OT MECHANIC * Ketty Hatrman LCSW - 11/08/2019 9:11 AM CST Beena ([phone]) of [facility] reported pt's acceptance. She will initiate insurance authorization and visit with pt this afternoon. ?? JEANNE Fletcher, MEIR PRN Inner Tube Inserter [phone] MECHANIC * Mary Kate Moody RN - 11/08/2019 [...] strategies to implement after discharge. Outcome: Ongoing MECHANIC * Sammy Carrero MD - 11/08/2019 5:48 AM CST [facility] Orthopedic Spine Surgery Daily Progress Note Saray Whitten, 59 year old, female : 1960 CSN: [id number] Primary Care Physician: Espearnza Ho MD - Admission Date/Time: 11/01/2019 1:54 [...] Procedure Component Value - Date/Time CULTURE URINE [[id number]] Collected: 10/22/191208 Lab Status: Final result Specimen: [...] Ortho Spine with any questions or concerns. Meean Machado MD 11/08/2019 5:48 AM Attending Physician Supervisory Note I personally interviewed and examined the patient and agree with the doctor above. Sammy Carrero MD MECHANIC * Nasrin Scherer RN - 11/07/2019 10:43 PM CST Problem: Low Fall Risk (Score 7-10) Goal: Patient will remain as independent as possible. Outcome: Ongoing Goal: Patient will remain safe from falls and injury. Outcome: Ongoing Pt remains free from falls at this time. MECHANIC * Rhona Elise, PT - 11/07/2019 4:07 PM CST [facility] Department of Physical Medicine & Rehabilitation Progress Note Patient: Saray Whitten Med Record Number: [id number] Date of : 1960 Age: [age] year old 11/07/19 1600 Missed Visit Missed Visit Refused Patient refused therapy intervention due to Pain *States she has been active all afternoon and had to stand for the X-rays. MECHANIC * Misa Delgadillo RD/TANI - 11/07/2019 12:33 [...] nutrition per nutrition guidelines. Misa Delgadillo RD/TANI MECHANIC * Ketty Hartman LCSW - 11/07/2019 11:49 AM CST SW met with pt and pt's sister, Zahira, at bedside. SW discussed PT/OT recommendations for Acute Rehab. Pt is amenable. Choice was provided. Pt's first choice is [facility]. Referral sent. ?? JEANNE Fletcher, MEIR PRN Inner Tube Inserter [phone] MECHANIC * Mariaelena Shen - 11/07/2019 10:39 AM CST Strategic Debriefing Specialist made initial visit to patient, sister Zahira at bedside. Patient shared that she came into the hospital for spinal surgery. Patient has been able to get up with PT, but indicated she is stillreceiving pain medication and sleeping a lot . Patient asked drop count associate to keep her in prayer for her recovery. Patient is aware pastoral care is available as needed and assured of prayer support. [phone] MECHANIC * Yael Kelly COTA - 11/07/2019 9:19 AM CST [facility] Department of Physical Medicine & Rehabilitation Progress Note Patient: Saray Whitten Med Record Number: [id number] Date of : 1960 Age: [age] year old 11/07/19 0900 Missed Visit Missed Visit Other (Comment) Pt currently receiving bed bath from RN. Will check back in afternoon if schedule allows. DIGNA Hewitt 11/07/2019 9:20 AM MECHANIC * Mary Kate Moody RN - 11/07/2019 [...] Daily care needs are met Outcome: Ongoing MECHANIC * Sammy Carrero MD - 11/07/2019 6:24 AM CST [facility] Orthopedic Spine Surgery Daily Progress Note Saray Whitten, 59 year old, female : 1960 CSN: [id number] Primary Care Physician: Esperanza Ho MD - [...] Procedure Component Value - Date/Time CULTURE URINE [[id number]] Collected: 10/22/191208 Lab Status: Final result Specimen: [...] regimen 5. PT/OT 6. Pain Control, transition INDUSTRIAL TWISTING MACHINE OPERATOR to PO 7. OrthoSpine will continue to follow. Please page with any questions or concerns Nury Gray MD 11/07/2019 6:25 AM Attending Physician Supervisory Note I personally interviewed and examined the patient and agree with the doctor above. Work on rehab placement. Sammy Carrero MD MECHANIC * Eliza Hernandes, PT - 11/06/2019 3:02 PM CST [facility] Physical Medicine and Rehabilitation PhysicalTherapy Progress Note Patient: Saray Whitten Med Record Number: [id number] Date of : 1960 Age: [age] year [...] 10 pain in back. Patient is pushing INDUSTRIAL TWISTING MACHINE OPERATOR. Nurse notified. Weight Bearing Status: WBAT Mobility: [...] limited gait skills. She continues to report 8/10 which is limiting her mobility and refused [...] ambulate??125??feet with Minimal assist??and appropriate AD ?? Customer Care Consultant Goal(s): Patient to discharge to appropriate next level of inpatient care Update Treatment Plan: Continue per POC If patient is discharged from the facility, this note serves as a discharge note if further physical therapy visits did not occur. Following therapy session, patient left in bed and with call light within reach. Eliza Hernandes, PT 11/06/2019 MECHANIC * Jossie Garcia, OT - 11/06/2019 2:52 PM CST [facility] Physical Medicine and Rehabilitation Occupational Therapy Progress Note Patient: Saray Whitten Med Record Number: [id number] Date of : 1960 Age: [age] year [...] moderate incisional pain, agrees to proceed, uses INDUSTRIAL TWISTING MACHINE OPERATOR during session. Activities of Daily Living Feeding: [...] Education:?good, safety education and spine precautions ?? Customer Care Consultant Goal:Patient to discharge to appropriate next level [...] written on white board. Jossie Garcia OT MECHANIC * Mary Kate Moody RN - 11/06/2019 10:53 AM CST Problem: Low Fall Risk (Score 7-10) Goal: Patient will have lower fall risk. 11/06/2019 1053 by Mary Kate Moody RN Outcome: Ongoing 11/06/2019 104 by Mary Kate Moody RN Outcome: Ongoing Goal: Patient will have lower injury risk. 11/06/2019 1053 by Mary Kate Moody RN Outcome: Ongoing 11/06/2019 104 by Mary Kate Modoy RN Outcome: Ongoing Goal: Patient will remain [...] Moody RN Outcome: Ongoing 11/06/2019 1047 by Cordia, Mary Kate M, RN Outcome: Ongoing Goal: Patient/family verbalize fall [...] Goal: Daily care needs are met 11/06/2019 105 by Mary Kate Moody RN Outcome: Ongoing 11/06/2019 104 by Mary Kate Moody RN Outcome: Ongoing MECHANIC * Mary Kate Moody RN - 11/06/2019 [...] Daily care needs are met Outcome: Ongoing MECHANIC * Judson Anderson MD - 11/06/2019 8:19 AM CST Vascular Surgery Progress Note Name: Saray Whitten Hospital Day: 5 HPI:Saray Whitten is a 59F with lumbar stenosis/radiculopathy now status-post elective L4-S1 USP, L4S1 PSF, L4/5 hemilaminectomy, facetectomy on 11/02/2019. [...] Intake/Output Summary (Last 24 hours) at 11/06/2019 08 Last data filed at 11/05/2019 1815 Gross [...] 30 mg ??? HYDROmorphone (DILAUDID) 0.2 mg/ml INDUSTRIAL TWISTING MACHINE OPERATOR ??? lactated ringers infusion ??? naloxone (NARCAN) [...] with lumbar stenosis/radiculopathy now status-post elective L4-S1 USP, L4S1 PSF, L4/5 hemilaminectomy, facetectomy on 11/02/19. Patient passing flatus now, abdominal pain controlled, up with PT. ?? - advance diet as tolerated, encourage ambulation - okay to remove dressing on discharge - please contact vascular surgery with any additional questions or concerns Judson Anderson MD 11/06/2019 3:16 PM MECHANIC * Sammy Carrero MD - 11/06/2019 7:46 AM CST [facility] Orth[facility] Spine Surgery Daily Progress Note Saray Whitten, 59 year old, female : 1960 CSN: [id number] Primary Care Physician: Esperanza Ho MD - [...] Procedure Component Value - Date/Time CULTURE URINE [[id number]] Collected: 10/22/19 120 Lab Status: Final result [...] regimen 6. PT/OT 7. Pain Control, continue INDUSTRIAL TWISTING MACHINE OPERATOR until better tolerating oral intake 8. OrthoSpine will continue to follow. Please page with any questions or concerns Meena Machado MD 11/06/2019 7:47 AM Attending Physician Supervisory Note I personally interviewed and examined the patient and agree with the doctor above. Sammy Carrero MD MECHANIC * Judson Anderson MD - 11/05/2019 5:29 [...] 30 mg ??? HYDROmorphone (DILAUDID) 0.2 mg/ml INDUSTRIAL TWISTING MACHINE OPERATOR ??? lactated ringers infusion ??? naloxone (NARCAN) [...] lozenge Labs: @LABSLH@ Recent Labs Component Name 11/05/19 0325 WBC 11.4* HGB 8.9* HCT 28.5* Recent [...] lumbar stenosis/radiculopathy now status-post elective L4- S1 AARTI, L4S1 PSF, L4/5 hemilaminectomy, facetectomy on 11/02/19. Patient with some abdominal pain and distention, likelyileus, advancing diet slowly. - vascular will continue to follow, encourage ambulation with PT, awaiting return of bowel function Judson Anderson MD 11/05/2019 5:29 PM MECHANIC * Ketty Hartman LCSW - 11/05/2019 2:51 PM CST SW met with pt and pt's sister, Zahira, at bedside. SW discussed PT/OT recommendations for Acute Rehab. Pt was quite sleepy and continually fell asleep throughout conversation. SW to visit again once pt able to effectively participate. JEANNE Fletcher, REAL TIME OPERATOR PRN Inner Tube Inserter [phone] MECHANIC * Eliza Hernandes, PT - 11/05/2019 12:46 PM CST [facility] Physical Medicine and Rehabilitation PhysicalTherapy Progress Note Patient: Saray Teague [facility] Record Number: [id number] Date of : 1960 Age: [age] year [...] spine at surgery site. Patient pushing her INDUSTRIAL TWISTING MACHINE OPERATOR. Weight Bearing Status: WBAT Mobility: Rolling: Moderate [...] ambulate??125??feet with Minimal assist??and appropriate AD ?? Customer Care Consultant Goal(s): Patient to discharge to appropriate next level of inpatient care ?? Update Treatment Plan: Continue per POC If patient is discharged from the facility, this note serves as a discharge note if further physical therapy visits did not occur. Following therapy session, patient left in bed, with call light within reach and with family in room. Eliza Hernandes, PT 11/05/2019 MECHANIC * Elidia Martinez, OT - 11/05/2019 10:32 AM CST [facility] Physical Medicine and Rehabilitation Occupational Therapy Progress Note Patient: Saray Whitten Med Record Number: [id number] Date of : 1960 Age: [age] year [...] pain Education:?good, safety education and spine precautions Customer Care Consultant Goal:Patient to discharge to appropriate next level of inpatient care If patient is discharged from the facility, this note serves as a discharge note if further occupational therapy visits did not occur. Following therapy session, patient left in bed, with bed alarm on, with call light within reach andwith family in room. Elidia Martinez OT MECHANIC * Evelin Tamez RN - 11/05/2019 8:36 [...] Daily care needs are met Outcome: Ongoing MECHANIC * Meena Machado MD - 11/05/2019 6:19 AM CST [facility] Orthopedic Spine Surgery Daily Progress Note Saray Whitten, 59 year old, female : 1960 CSN: [id number] Primary Care Physician: Esperanza Ho MD - [...] Procedure Component Value - Date/Time CULTURE URINE [[id number]] Collected: 10/22/19 1209 Lab Status: Final result [...] concerns Meena Machado MD 11/05/2019 6:20 AM MECHANIC * Alberta Stark, OT - 11/04/2019 11:24 AM CST [facility] Physical Medicine and Rehabilitation Occupational Therapy Progress Note Patient: Saray Whitten Med Record Number: [id number] Date of : 1960 Age: [age] year [...] reports increased pain with mobility. 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 Nurse notified. Activities of Daily Living Feeding: [...] Education: good, safety education and spine precautions Customer Care Consultant Goal:Patient to discharge to appropriate next level [...] written on white board. Alberta Stark OT MECHANIC * Beata Goldberg, PT - 11/04/2019 9:51 AM CST [facility] Physical Medicine and Rehabilitation PhysicalTherapy Progress Note Patient: Saray Teague Whitten Med Record Number: [id number] Date of : 1960 Age: [age] year [...] feet with Minimal assist and appropriate AD Residential Goal(s): Patient to discharge to appropriate next level of inpatient care Update Treatment Plan: continue progression toward goals If patient is discharged from the facility, this note serves as a discharge note if further physical therapy visits did not occur. Following therapy session, patient left in bed, with call light within reach and with family in room. Beata Goldberg PT 11/04/2019 MECHANIC * Denny Acosta MD - 11/04/2019 9:08 AM CST [facility] Orthopedic Spine Surgery Daily Progress Note Saray Whitten, 59 year old, female : 1960 CSN: [id number] Primary Care Physician: Esperanza Ho MD - [...] Procedure Component Value - Date/Time CULTURE URINE [[id number]] Collected: 10/22/19 1209 Lab Status: Final result [...] concerns Denny Acosta MD 11/04/2019 9:08 AM MECHANIC * Judson Anderson MD - 11/04/2019 9:00 [...] 30 mg ??? HYDROmorphone (DILAUDID) 0.2 mg/ml INDUSTRIAL TWISTING MACHINE OPERATOR ??? lactated ringers infusion ??? naloxone (NARCAN) injection 0.2 mg ??? oxyCODONE-acetaminophen (PERCOCET) 5-325 MG tablet 1 tablet Or ??? oxyCODONE-acetaminophen (PERCOCET) 5-325 MG tablet 2 tablet ??? polyethylene glycol 3350 (MIRALAX) packet 17 g ??? senna-docusate (SENOKOT-S) tablet 1 tablet Labs: @LABSLH@ Recent Labs Component Name 11/04/19 0208 WBC 12.9* HGB 9.0* HCT 29.2* Recent Labs Component Name 11/04/19 0208 11/02/19 1409 NA 140 - - K [...] lumbar stenosis/radiculopathy now status-post elective L4- S1 AARTI, L4S1 PSF, L4/5 hemilaminectomy, facetectomy on 11/02/19. Patient with some abdominal pain and distention, made NPO again, no nausea/emesis, likely ileus. - vascular will continue to follow, limit narcotics and encourage ambulation as able Judson Anderson MD 11/04/2019 9:00 AM MECHANIC * Julien Mcdaniels RN - 11/03/2019 8:29 [...] for completion of daily activities Outcome: Ongoing MECHANIC * Julien Mcdaniels RN - 11/03/2019 8:17 PM CST 1904 received report and assumed care of pt 1999 called team, resident said it was ok for me to give pill with sip of water. MECHANIC * Vangie Sanchez MD - 11/03/2019 5:15 [...] Discussed with patient about being mindful of INDUSTRIAL TWISTING MACHINE OPERATOR uses as the narcotics are also contributing to this. Discussed that if she starts to have more abdominal distension, n/v, may need NG tube. Patient expressed understanding. MECHANIC * Bhumi Weber RN - 11/03/2019 4:06 PM CST This RN was called to the patient's room due to the patient asking for pain medication. The patientstated that the INDUSTRIAL TWISTING MACHINE OPERATOR was not helping the pain in her [...] for NPO status. Pt updated. Will monitor. MECHANIC * Damon Christian, PT - 11/03/2019 12:09 PM CST [facility] Physical Medicine and Rehabilitation Physical Therapy Initial Evaluation Note Patient: Saray Whitten Med Record Number: [id number] Date of : 1960 Age: [age] year [...] feet with Minimal assist and appropriate AD Customer Care Consultant Goal(s): Patient to discharge to appropriate next level of inpatient care Equipment Issued: gait belt and assistive device Plan: If patient is discharged from the facility, this note serves as a discharge summary if further physical therapy visits did not occur. Following therapy session, patient left in bed, with call light within reach and with family in room Damon Christian PT 11/03/2019 MECHANIC * Mary Partida, OT - 11/03/2019 10:00 AM CST [facility] Physical Medicine and Rehabilitation Occupational Therapy Initial Evaluation Note Patient: Saray Whitten Med Record Number: [id number] Date of : 1960 Age: [age] year [...] NAD Precautions: IV's: Peripheral line, Catheter, Oxygen, INDUSTRIAL TWISTING MACHINE OPERATOR and Drains Edema: None noted Vital Signs: [...] Education: good, safety education and spine precautions Customer Care Consultant Goal: Patient to discharge to appropriate next level of inpatient care If patient is discharged from the facility, this note serves as a discharge summary if further occupational therapy visits did not occur. Following therapy session, patient left in bed, with call light within reach, with family in room and with RNBindu aware. Mary Partida OT 11/03/2019 MECHANIC * Sammy Carrero MD - 11/03/2019 8:24 AM CST [facility] Orthopedic Spine Surgery Daily Progress Note Saray Whitten, 59 year old, female : 1960 CSN: [id number] Primary Care Physician: Esperanza Ho MD - [...] Procedure Component Value - Date/Time CULTURE URINE [[id number]] Collected: 10/22/19 1209 Lab Status: Final result Specimen: Urine Clean Catch Updated: 10/24/19 035 Culture Urine 10,000-50,000 CFU/mL urogenital dlyon Physical Exam General: no acute distress Back: [...] resolved. No appetite yet. Sammy Carrero MD MECHANIC * Bhumi Weber RN - 11/03/2019 7:15 AM CST This RN went to the patient's room after receiving phone call that labs were not obtained early this am. technical documentation specialist was at bedside obtaining labs and patient stated that she had refused tile mason labs, told them to come back later. Labs obtained by tech at this time. MECHANIC * Sean Gibson MD - 11/03/2019 5:25 AM CST Vascular Surgery Progress Note Name: Saray Whitten Hospital Day: 2 HPI: 59F with lumbar stenosis/radiculopathy now status-post elective L4-S1 USP, L4S1 PSF, L4/5 hemilaminectomy, facetectomy. Subjective: Pt [...] Intake/Output Summary (Last 24 hours) at 11/03/2019 0527 Last data filed at 11/03/2019 0417 Gross per 24 hour Intake 6750 ml [...] 30 mg ??? HYDROmorphone (DILAUDID) 0.2 mg/ml INDUSTRIAL TWISTING MACHINE OPERATOR ??? lactated ringers infusion ??? naloxone (NARCAN) [...] L4-S1 AARTI, L4S1 PSF, L4/5 hemilaminectomy, facetectomy. -Wounds CDI, neurovasc intact -H/H stable -Care per ortho -Please contact vascular surgery with any concerns - Patient has been seen and discussed with my in melt house drag operator Dr. Hoffmann and attending physician Dr. Mosley. Sean Gibson MD 11/03/2019 5:26 AM MECHANIC * Tasia Villarreal RN - 11/02/2019 10:52 [...] strategies to implement after discharge. Outcome: Ongoing MECHANIC * Tasia Villarreal RN - 11/02/2019 8:34 PM CST Pt reporting uncontrolled level 10 pain to RN. Pt is tearful and restless. RN paged ortho spine andis awaiting response. Will continue to monitor. MECHANIC * Sammy Carrero MD - 11/02/2019 5:16 PM CST [facility] Orthopedic Spine Surgery Daily Progress Note Saray Whitten, 59 year old, female : 1960 CSN: [id number] Primary Care Physician: Esperanza Ho MD - [...] Procedure Component Value - Date/Time CULTURE URINE [[id number]] Collected: 10/22/19 1209 Lab Status: Final result [...] with the doctor above. Sammy Carrero MD MECHANIC * Gloria Adams RN - 11/02/2019 12:25 [...] Transportation at discharge: Family Transportation (who): Family Cabin Outfitter/Support: Zahira Jones (sister) [phone] Cabin Outfitter person: Home/Functional Status: Functional and Cognitive Status [...] For any questions or needs please contact: Structural Metal Worker Name/Phone number: Gloria Adams RN BSN Case Management [phone] MECHANIC * Sammy Carrero MD - 11/02/2019 6:57 AM CST [facility] Orthopedic Spine Surgery Daily Progress Note Saray Whitten, 59 year old, female : 1960 CSN: [id number] Primary Care Physician: Esperanza Ho MD - [...] Procedure Component Value - Date/Time CULTURE URINE [[id number]] Collected: 10/22/19 1209 Lab Status: Final result [...] with the doctor above. Sammy Carrero MD MECHANIC * Ivanna Godwin RN - 11/01/2019 2:23 [...] strategies to implement after discharge. Outcome: Ongoing MECHANIC * Ivanna Godwin RN - 11/01/2019 2:15 PM CST Called orthospine to let them know pt has arrived and receive orders. MECHANIC documented in this encounter H&P Notes * Sammy Carrero MD - 11/01/2019 3:28 PM CST [facility] Orthopedic Spine Surgery Consultation Note Saray Whitten, 59 year old, female : 1960 CSN: [id number] Primary Care Physician: Esepranza Ho MD Admission Date/Time: 11/01/2019 1:54 PM Today's Date/Time: 11/01/2019 3:28 PM Chief Complaint No chief complaint on file. HPI Saray Whitten is a 59 year old female who presented to [facility] on 11/01/2019 for L4/5, L5/S1 anterior [...] with the doctor above. Sammy Carrero MD MECHANIC documented in this encounter Consult Notes * Mariaelena Terrell RN - 11/12/2019 6:27 PM CDT RECEIVED REFERRAL FOR HOME CARE WITH DR CARRERO FOLLOWING PER PROTOCOL. HAVE SPOKEN WITH PATIENT TO EXPLAIN HOME CARE & VERIFY DEMOGRAPHICS. PATIENT STATES SHE IS AGREEABLE TO [facility] PROVIDING [facility]. PATIENT HAS BEEN DISCHARGED, ORTHO ORDERS ENTERED, & SOC ORTHO VISIT GENERATED. REFERRAL IS NOW COMPLETE. ROCIO TERRELL RN ADM COORDINATOR [facility] documented in this [...] fusion L4-5 and L5-S1, Dr. Cecilia Blackwood cosurgeon. 2. Insertion of interbody fusion device, two levels, PEEK Perimeter cage. 3. Left L4 decompressive hemilaminectomy and medial facetectomy. 4. L5 decompressive hemilaminectomy and medial facetectomy. 5. Posterior instrumentation, L4-S1. 6. Posterolateral arthrodesis L4-S1 with local autograft. SURGEON: Sammy Carrero M.D. FLEET TECHNICIAN: Julien Stern M.D., orthopedic surgery resident COSURGEON [...] implant placement and alignment as well as jainism of lordosis. The available interspace was then [...] prone position on a Kofi frame jackie 6-mold injector configuration with arm boards, after which she [...] image data acquisition for use with the [employer] navigation system. [employer] 5.5system was used. A 6.5 x 40 [...] lateral views confirmed implant placement, alignment and jainism of anatomic lordosis. Set screws were all [...] closed with #1 Vicryl suture in a [id number] interrupted fashion over a 1/8th-inch Hemovac drain. [...] standing radiographs before discharge. Sammy Carrero MD [id number] Doc ID: [id number] Voice Job ID: [id number] MECHANIC * Operative - Cecilia Blackwood MD - [...] for the posterior portion of the procedure. Cecilia Blackwood MD [id number] Doc ID: [id number] Voice Job ID: [id number] MECHANIC * Brief Op Note - Cecilia Blackwood MD - 11/02/2019 8:16 AM CST Brief Op Note Procedure: L4/5 L5/S1 ANTERIOR LUMBAR INTERBODY FUSION Patient Name: Saray Teague Whitten Date of Service: 11/02/2019 Pre-Op Diagnosis: LUMBAR STENOSIS, LUMBAR SPONDYLOLISTHESIS, LUMBAR RADICULOPATHY Post-Op Diagnosis: same CO SURGEONS: katia carrero and cecilia blackwood Extractor Tender Raw Stock(s): bisi stern Anesthesia Type: general ETT Complications: none Findings: extensive iliolumbar veins requiring ligation EBL: 100 mL Urine Output : 550 mL IV Fluid Intake: not totalled Drains: * No LDAs found * Specimen(s): disk material Cecilia Blackwood MD MECHANIC * Brief Op Note - Sammy Carrero MD - 11/02/2019 8:16 AM CST Brief Op Note Patient Name: Saray Teague Whitten Date of [...] * Cecilia Blackwood MD - Surgeon Second Extractor Tender Raw Stock(s): n/a Anesthesia Type: general ETT Complications: none [...] was present and performed procedure as above. Dict#[id number]. Brace for comfort once mobilized. Sammy Carrero MD MECHANIC documented in this encounter Miscellaneous Notes * Coding Query - Meena Machado MD - 11/05/2019 1:25 PM CST DOCUMENTATION CLARIFICATION REQUEST TO: Dr. Ryley Machado FROM: Jessica Salcedo, MSN, RN, CDS Email: [email or web address] Please clarify and document if the patient [...] <7. Meena Machado MD 11/06/2019 5:11 AM MECHANIC documented in this encounter Plan of Treatment [...] W/O DIFFERENTIAL AM Draw 11/10/2019 2:49 AM GUN MECHANIC BASIC METABOLIC PANEL (CALCIUM TOTAL) AM Draw 11/10/2019 2:49 AM GUN MECHANIC CBC W/O DIFFERENTIAL AM Draw 11/09/2019 2:48 AM GUN MECHANIC BASIC METABOLIC PANEL (CALCIUM TOTAL) AM Draw 11/09/2019 2:48 AM GUN MECHANIC CBC W/O DIFFERENTIAL AM Draw 11/08/2019 2:49 AM GUN MECHANIC BASIC METABOLIC PANEL (CALCIUM TOTAL) AM Draw 11/08/2019 2:49 AM GUN MECHANIC XR LUMBAR SPINE 2 OR 3VW Routine 11/07/2019 2:21 PM GUN MECHANIC Lumbosacral radiculopathy at L5 CBC W/O DIFFERENTIAL AM Draw 11/07/2019 2:59 AM GUN MECHANIC BASIC METABOLIC PANEL (CALCIUM TOTAL) AM Draw 11/07/2019 2:59 AM GUN MECHANIC CBC W/O DIFFERENTIAL AM Draw 11/06/2019 2:47 AM GUN MECHANIC BASIC METABOLIC PANEL (CALCIUM TOTAL) AM Draw 11/06/2019 2:47 AM GUN MECHANIC CBC W/O DIFFERENTIAL AM Draw 11/05/2019 3:25 AM GUN MECHANIC BASIC METABOLIC PANEL (CALCIUM TOTAL) AM Draw 11/05/2019 3:25 AM GUN MECHANIC CBC W/O DIFFERENTIAL AM Draw 11/04/2019 2:08 AM GUN MECHANIC BASIC METABOLIC PANEL (CALCIUM TOTAL) AM Draw 11/04/2019 2:08 AM GUN MECHANIC CBC W/O DIFFERENTIAL AM Draw 11/03/2019 7:14 AM GUN MECHANIC BASIC METABOLIC PANEL (CALCIUM TOTAL) AM Draw 11/03/2019 7:14 AM GUN MECHANIC FL OARM SURGERY Routine 11/02/2019 3:19 PM GUN MECHANIC Lumbosacral radiculopathy at L5 FL LEVI SURGERY Routine 11/02/2019 3:02 PM GUN MECHANIC Lumbosacral radiculopathy at L5 BLOOD GASES ART COMPLETE [facility] OR STAT 11/02/2019 2:09 PM GUN MECHANIC Lumbosacral radiculopathy at L5 Spondylolisthesis at L4-L5 level BLOOD GASES ART COMPLETE [facility] OR STAT 11/02/2019 12:31 PM GUN MECHANIC Lumbosacral radiculopathy at L5 Spondylolisthesis at L4-L5 level BLOOD GASES ART COMPLETE [facility] OR STAT 11/02/2019 10:58 AM GUN MECHANIC Lumbosacral radiculopathy at L5 FUSION TRANSFORAMINAL LUMBAR INTERBODY (TLIF) 11/02/2019 8:16 AM GUN MECHANIC Diagnosis unknown Special Needs [id number] [place] TABLE- FLAT TOP 1ST,TPS POWER, MEDTRONIC IMPLANTS *. Brielle will be assisting Dr. Carrero* FUSION ANTERIOR LUMBAR INTERBODY (ALIF) 11/02/2019 8:16 AM GUN MECHANIC Diagnosis unknown Special Needs [id number] [place] TABLE- FLAT TOP 1ST,TPS POWER, MEDTRONIC IMPLANTS *. Brielle will be assisting Dr. Carrero* CBC W/O DIFFERENTIAL AM Draw 11/02/2019 2:50 AM GUN MECHANIC BASIC METABOLIC PANEL (CALCIUM TOTAL) AM Draw 11/02/2019 2:50 AM GUN MECHANIC PREPARE RBC LEUKOREDUCED UNIT STAT 11/01/2019 3:59 PM GUN MECHANIC Spondylolisthesis at L4-L5 level Lumbosacral radiculopathy at L5 TYPE + SCREEN PANEL Routine 11/01/2019 3 :51 PM GUN MECHANIC Spondylolisthesis at L4-L5 level COOKIE DIRECT Routine 11/01/2019 3:51 PM GUN MECHANIC Spondylolisthesis at L4-L5 level ANTIBODY IDENTIFICATION Routine 11/01/2019 3:51 PM GUN MECHANIC Spondylolisthesis at L4-L5 level documented in this encounter Results * BASIC METABOLIC PANEL (CALCIUM TOTAL) (11/12/2019 2:57 AM CDT) Pathologist [facility] BUN 7 7 - 26 mg/dL 11/12/2019 3:36 AM [facility] Creatinine 0.7 0.6 - 1.2 mg/dL 11/12/2019 3:36 AM [facility] Sodium 140 136 - 145 mmol/L 11/12/2019 3:36 AM [facility] Potassium 4.1 3.5 - 4.5 mmol/L 11/12/2019 3:36 AM [facility] Chloride 105 98 - 107 mmol/L 11/12/2019 3:36 AM [facility] CO2 25 22 - 29 mmol/L 11/12/2019 3:36 AM [facility] Glucose 102 70 - 115 mg/dL 11/12/2019 3:36 AM [facility] Calcium 8.5 8.4 - 10.2 mg/dL 11/12/2019 3:36 AM [facility] Anion Gap 14 8 - 18 11/12/2019 3:36 AM [facility] BUN/Creatinine Ratio 10 7 - 23 11/12/2019 3:36 AM [facility] Osmolality Calculated 288 270 - 300 mOsm/kg 11/12/2019 3:36 AM [facility] eGFR >60 >60 mL/min/1.7 3 m2 11/12/2019 3:36 AM [facility] Blood BLOOD SPECIMEN / Unknown Lab Venipuncture / Unknown 11/12/2019 2:57 AM CDT 11/12/2019 3:10 AM CDT Julein Stern Jr., MD LAB - CHEMISTR Y ORDERABLES [address] [phone] * (ABNORMAL) CBC W/O DIFFERENTIAL (11/12/2019 2:56 AM CDT) Pathologist [facility] WBC 7.0 3.5 - 10.5 10? 3 /uL 11/12/2019 3:19 AM [facility] RBC 3.10(L) 3.90 - 5.00 10? 6 /uL 11/12/2019 3:19 AM [facility] Hemoglobin 8.1(L) 12.0 - 15.5 g/dL 11/12/2019 3:19 AM [facility] Hematocrit 27.0(L) 35.0 - 45.0 % 11/12/2019 3:19 AM [facility] MCV 87.1 81.0 - 97.0 fL 11/12/2019 3:19 AM [facility] MCH 26.1(L) 28.0 - 34.0 pg 11/12/2019 3:19 AM [facility] MCHC 30.0(L) 32.0 - 36.0 g/dL 11/12/2019 3:19 AM [facility] Platelet Count 338 150 - 400 10? 3 /uL 11/12/2019 3:19 AM [facility] RDW-SD 46.5 36.0 - 50.0 fL 11/12/2019 3:19 AM [facility] RDW-CV 14.5 11.2 - 14.8 % 11/12/2019 3:19 AM [facility] MPV 9.1(L) 9.3 - 12.8 fL 11/12/2019 3:19 AM [facility] nRBC Absolute 0.00 0 10? 3 /uL 11/12/2019 3:19 AM [facility] nRBC Auto 0.0 0 /100 WBC 11/12/2019 3:19 AM [facility] Blood BLOOD SPECIMEN / Unknown Lab Venipuncture / Unknown 11/12/2019 2:56 AM CDT 11/12/2019 3:10 AM CDT Julien Stern Jr., MD LAB - HEMATOLO GY ORDERABLES [facility] [address] [phone] * (ABNORMAL) CBC W/O DIFFERENTIAL (11/11/2019 11:23 AM CDT) WBC 6.9 3.5 - 10.5 10? 3 /uL 11/11/2019 12:00 PM [facility] RBC 3.23(L) 3.90 - 5.00 10? 6 /uL 11/11/2019 12:00 PM [facility] Hemoglobin 8.7(L) 12.0 - 15.5 g/dL 11/11/2019 12:00 PM [facility] Hematocrit 28.5(L) 35.0 - 45.0 % 11/11/2019 12:00 PM [facility] MCV 88.2 81.0 - 97.0 fL 11/11/2019 12:00 PM [facility] MCH 26.9(L) 28.0 - 34.0 pg 11/11/2019 12:00 PM [facility] MCHC 30.5(L) 32.0 - 36.0 g/dL 11/11/2019 12:00 PM [facility] Platelet Count 344 150 - 400 10? 3 /uL 11/11/2019 12:00 PM [facility] RDW-SD 46.6 36.0 - 50.0 fL 11/11/2019 12:00 PM [facility] RDW-CV 14.5 11.2 - 14.8 % 11/11/2019 12:00 PM [facility] MPV 9.5 9.3 - 12.8 fL 11/11/2019 12:00 PM [facility] nRBC Absolute 0.00 0 10? 3 /uL 11/11/2019 12:00 PM [facility] nRBC Auto 0.0 0 /100 WBC 11/11/2019 12:00 PM [facility] Blood BLOOD SPECIMEN / Unknown Lab Venipuncture / Unknown 11/11/2019 11:23 AM CDT 11/11/2019 11:57 AM CDT Julien Stern Jr., MD LAB - HEMATOLO GY ORDERABLES [address] [phone] * (ABNORMAL) BASIC METABOLIC PANEL (CALCIUM TOTAL) (11/11/2019 4:09 AM CDT) BUN 6(L) 7 - 26 mg/dL 11/11/2019 4:39 AM [facility] Creatinine 0.7 0.6 - 1.2 mg/dL 11/11/2019 4:39 AM [facility] Sodium 142 136 - 145 mmol/L 11/11/2019 4:39 AM [facility] Potassium 4.5 3.5 - 4.5 mmol/L 11/11/2019 4:39 AM [facility] Chloride 107 98 - 107 mmol/L 11/11/2019 4:39 AM [facility] CO2 23 22 - 29 mmol/L 11/11/2019 4:39 AM [facility] Glucose 99 70 - 115 mg/dL 11/11/2019 4:39 AM [facility] Calcium 8.2(L) 8.4 - 10.2 mg/dL 11/11/2019 4:39 AM [facility] Anion Gap 17 8 - 18 11/11/2019 4:39 AM [facility] BUN/Creatinine Ratio 9 7 - 23 11/11/2019 4:39 AM [facility] Osmolality Calculated 292 270 - 300 mOsm/kg 11/11/2019 4:39 AM [facility] eGFR >60 >60 mL/min/1.7 3 m2 11/11/2019 4:39 AM [facility] Blood BLOOD SPECIMEN / Unknown Lab Venipuncture / Unknown 11/11/2019 4:09 AM CDT 11/11/2019 4:[address] [facility] Julien Stern Jr., MD LAB - CHEMISTR Y ORDERABLES [address] [phone] * (ABNORMAL) BASIC METABOLIC PANEL (CALCIUM TOTAL) (11/10/2019 2:49 AM GUN MECHANIC) BUN 6(L) 7 - 26 mg/dL 11/10/2019 4:12 AM [facility] Creatinine 0.9 0.6 - 1.2 mg/dL 11/10/2019 4:12 AM [facility] Comment:Confirmed by repeat analysis. Sodium 148(H) 136 - 145 mmol/L 11/10/2019 4:12 AM [facility] Potassium 4.9(H) 3.5 - 4.5 mmol/L 11/10/2019 4:12 AM [facility] Chloride 110(H) 98 - 107 mmol/L 11/10/2019 4:12 AM [facility] CO2 20(L) 22 - 29 mmol/L 11/10/2019 4:12 AM [facility] Glucose 93 70 - 115 mg/dL 11/10/2019 4:12 AM [facility] Calcium 8.1(L) 8.4 - 10.2 mg/dL 11/10/2019 4:12 AM [facility] Anion Gap 23(H) 8 - 18 11/10/2019 4:12 AM [facility] BUN/Creatinine Ratio 7 7 - 23 11/10/2019 4:12 AM [facility] Osmolality Calculated 303(H) 270 - 300 mOsm/kg 11/10/2019 4:12 AM [facility] eGFR >60 >60 mL/min/1.7 3 m2 11/10/2019 4:12 AM [facility] Blood BLOOD SPECIMEN / Unknown Lab Venipuncture / Unknown 11/10/2019 2:49 AM GUN MECHANIC 11/10/2019 3:04 AM [facility] Julien Stern Jr., MD LAB - CHEMISTR Y ORDERABLES Performing Organization Address [facility]/State/[place] Co de Phone Number [address] [phone] * (ABNORMAL) CBC W/O DIFFERENTIAL (11/10/2019 2:49 AM GUN MECHANIC) WBC 7.8 3.5 - 10.5 10? 3 /uL 11/10/2019 3:22 AM [facility] RBC 3.02(L) 3.90 - 5.00 10? 6 /uL 11/10/2019 3:22 AM [facility] Hemoglobin 8.1(L) 12.0 - 15.5 g/dL 11/10/2019 3:22 AM [facility] Hematocrit 26.6(L) 35.0 - 45.0 % 11/10/2019 3:22 AM [facility] MCV 88.1 81.0 - 97.0 fL 11/10/2019 3:22 AM [facility] MCH 26.8(L) 28.0 - 34.0 pg 11/10/2019 3:22 AM [facility] MCHC 30.5(L) 32.0 - 36.0 g/dL 11/10/2019 3:22 AM [facility] Platelet Count 289 150 - 400 10? 3 /uL 11/10/2019 3:22 AM [facility] RDW-SD 47.0 36.0 - 50.0 fL 11/10/2019 3:22 AM [facility] RDW-CV 14.6 11.2 - 14.8 % 11/10/2019 3:22 AM [facility] MPV 9.8 9.3 - 12.8 fL 11/10/2019 3:22 AM [facility] nRBC Absolute 0.02(H) 0 10? 3 /uL 11/10/2019 3:22 AM [facility] nRBC Auto 0.3(H) 0 /100 WBC 11/10/2019 3:22 AM [facility] Blood BLOOD SPECIMEN / Unknown Lab Venipuncture / Unknown 11/10/2019 2:49 AM GUN [employer]CH[employer]IC 11/10/2019 3:04 AM GUN MECHANIC Julien Stern Jr., MD LAB - HEMATOLO GY ORDERABLES Performing Organization Address City/State/[place] Co de Phone Number [address] [phone] * (ABNORMAL) BASIC METABOLIC PANEL (CALCIUM TOTAL) (11/09/2019 2:48 AM GUN MECHANIC) BUN 6(L) 7 - 26 mg/dL 11/09/2019 3:17 AM [facility] Creatinine 0.6 0.6 - 1.2 mg/dL 11/09/2019 3:17 AM [facility] Sodium 142 136 - 145 mmol/L 11/09/2019 3:17 AM [facility] Potassium 4.1 3.5 - 4.5 mmol/L 11/09/2019 3:17 AM [facility] Chloride 108(H) 98 - 107 mmol/L 11/09/2019 3:17 AM [facility] CO2 26 22 - 29 mmol/L 11/09/2019 3:17 AM [facility] Glucose 99 70 - 115 mg/dL 11/09/2019 3:17 AM [facility] Calcium 8.1(L) 8.4 - 10.2 mg/dL 11/09/2019 3:17 AM [facility] Anion Gap 12 8 - 18 11/09/2019 3:17 AM [facility] BUN/Creatinine Ratio 10 7 - 23 11/09/2019 3:17 AM [facility] Osmolality Calculated 292 270 - 300 mOsm/kg 11/09/2019 3:17 AM [facility] eGFR >60 >60 mL/min/1.7 3 m2 11/09/2019 3:17 AM [facility] Blood BLOOD SPECIMEN / Unknown Lab Venipuncture / Unknown 11/09/2019 2:48 AM GUN MECHANIC 11/09/2019 2:57 AM [facility] Julien Stern Jr., MD LAB - CHEMISTR Y ORDERABLES Performing Organization Address City/State/[place] Co de Phone Number [address] [phone] * (ABNORMAL) CBC W/O DIFFERENTIAL (11/09/2019 2:48 AM GUN MECHANIC) WBC 7.3 3.5 - 10.5 10? 3 /uL 11/09/2019 3:14 AM [facility] RBC 2.94(L) 3.90 - 5.00 10? 6 /uL 11/09/2019 3:14 AM [facility] Hemoglobin 8.1(L) 12.0 - 15.5 g/dL 11/09/2019 3:14 AM [facility] Hematocrit 25.5(L) 35.0 - 45.0 % 11/09/2019 3:14 AM [facility] MCV 86.7 81.0 - 97.0 fL 11/09/2019 3:14 AM [facility] MCH 27.6(L) 28.0 - 34.0 pg 11/09/2019 3:14 AM [facility] MCHC 31.8(L) 32.0 - 36.0 g/dL 11/09/2019 3:14 AM [facility] Platelet Count 268 150 - 400 10? 3 /uL 11/09/2019 3:14 AM [facility] RDW-SD 44.5 36.0 - 50.0 fL 11/09/2019 3:14 AM [facility] RDW-CV 14.1 11.2 - 14.8 % 11/09/2019 3:14 AM [facility] MPV 9.9 9.3 - 12.8 fL 11/09/2019 3:14 AM [facility] nRBC Absolute 0.03(H) 0 10? 3 /uL 11/09/2019 3:14 AM [facility] nRBC Auto 0.4(H) 0 /100 WBC 11/09/2019 3:14 AM [facility] Comment:Confirmed by repeat analysis. Blood BLOOD SPECIMEN / Unknown Lab Venipuncture / Unknown 11/09/2019 2:48 AM GUN [employer]IC 11/09/2019 2:57 AM [facility] Julien Stern Jr., MD LAB - HEMATOLO GY ORDERABLES [address] [phone] * (ABNORMAL) BASIC METABOLIC PANEL (CALCIUM TOTAL) (11/08/2019 2:49 AM GUN MECHANIC) BUN 7 7 - 26 mg/dL 11/08/2019 3:23 AM [facility] Creatinine 0.6 0.6 - 1.2 mg/dL 11/08/2019 3:23 AM [facility] Sodium 141 136 - 145 mmol/L 11/08/2019 3:23 AM [facility] Potassium 3.9 3.5 - 4.5 mmol/L 11/08/2019 3:23 AM [facility] Chloride 106 98 - 107 mmol/L 11/08/2019 3:23 AM [facility] CO2 24 22 - 29 mmol/L 11/08/2019 3:23 AM [facility] Glucose 104 70 - 115 mg/dL 11/08/2019 3:23 AM [facility] Calcium 8.2(L) 8.4 - 10.2 mg/dL 11/08/2019 3:23 AM [facility] Anion Gap 15 8 - 18 11/08/2019 3:23 AM [facility] BUN/Creatinine Ratio 12 7 - 23 11/08/2019 3:23 AM [facility] Osmolality Calculated 290 270 - 300 mOsm/kg 11/08/2019 3:23 AM [facility] eGFR >60 >60 mL/min/1.7 3 m2 11/08/2019 3:23 AM [facility] Blood BLOOD SPECIMEN / Unknown Lab Venipuncture / Unknown 11/08/2019 2:49 AM [employer]IC 11/08/2019 2:57 AM [employer] Julien Stern Jr., MD LAB - CHEMISTR Y ORDERABLES [address] [phone] * (ABNORMAL) CBC W/O DIFFERENTIAL (11/08/2019 2:49 AM [facility]) WBC 6.5 3.5 - 10.5 10? 3 /uL 11/08/2019 3:07 AM [facility] RBC 3.10(L) 3.90 - 5.00 10? 6 /uL 11/08/2019 3:07 AM [facility] Hemoglobin 8.4(L) 12.0 - 15.5 g/dL 11/08/2019 3:07 AM [facility] Hematocrit 26.8(L) 35.0 - 45.0 % 11/08/2019 3:07 AM [facility] MCV 86.5 81.0 - 97.0 fL 11/08/2019 3:07 AM [facility] MCH 27.1(L) 28.0 - 34.0 pg 11/08/2019 3:07 AM [facility] MCHC 31.3(L) 32.0 - 36.0 g/dL 11/08/2019 3:07 AM [facility] Platelet Count 253 150 - 400 10? 3 /uL 11/08/2019 3:07 AM [facility] RDW-SD 44.2 36.0 - 50.0 fL 11/08/2019 3:07 AM [facility] RDW-CV 14.1 11.2 - 14.8 % 11/08/2019 3:07 AM [facility] MPV 9.8 9.3 - 12.8 fL 11/08/2019 3:07 AM [facility] nRBC Absolute 0.00 0 10? 3 /uL 11/08/2019 3:07 AM [facility] nRBC Auto 0.0 0 /100 WBC 11/08/2019 3:07 AM [facility] Blood BLOOD SPECIMEN / Unknown Lab Venipuncture / Unknown 11/08/2019 2:49 AM [employer]IC 11/08/2019 3:06 AM G[employer] Julien Stern Jr., MD LAB - HEMATOLO GY ORDERABLES [address] [phone] * XR LUMBAR SPINE 2 OR 3VW (11/07/2019 2:21 PM GUN MECHANIC) Anatomical Region Laterality Modality Spine Radiographic Mayda ging 11/07/2019 2:20 PM GUN MECHANIC Impressions 11/07/2019 2:25 PM GUN MECHANIC FINDINGS/IMPRESSION: Interval posterior spinal fusion of L4-S1 with interbody spacer devices at L4-5 and L5-S1 without evidence of dislocation.. The vertebral bodies are normally aligned. There is no fracture or compression deformity. The intervertebral disc spaces are maintained. The sacroiliac joints are normal. Dictated by Bernard Lerma MD (physician president). I, Dr. CAROL BUTLER have personally reviewed and interpreted this examination/study. This report was electronically signed by CAROL BUTLER ??on 11/07/2019 2:25 PM . Narrative 11/07/2019 2:25 PM GUN MECHANIC EXAMINATION: XR LUMBAR SPINE 2 OR 3VW HISTORY: M54.17: Lumbosacral radiculopathy at L5 COMPARISON: CT lumbar spine without contrast 08/13/2019 from [facility] Procedure Note Carol Butler DO - 11/07/2019 EXAMINATION: XR LUMBAR SPINE 2 OR 3VW HISTORY: M54.17: Lumbosacral radiculopathy at L5 COMPARISON: CT lumbar spine without contrast 08/13/2019 from [facility] FINDINGS/IMPRESSION: Interval posterior spinal fusion of L4-S1 with interbody spacer devicesat L4-5 and L5-S1 without evidence of dislocation.. The vertebral bodies are normally aligned. There is no fracture or compression deformity. The intervertebral disc spaces are maintained.The sacroiliac joints are normal. Dictated by Bernard Lerma MD (physician president). I, Dr. CAROL BUTLER have personally reviewed and interpreted this examination/study. This report was electronically signed by CAROL BUTLER on 11/07/2019 2:25 PM . Meena Machado MD DIAGNOSTIC IMAGING O RDERABLES * (ABNORMAL) BASIC METABOLIC PANEL (CALCIUM TOTAL) (11/07/2019 2:59 AM GUN MECHANIC) BUN 6(L) 7 - 26 mg/dL 11/07/2019 4:22 AM [facility] Creatinine 0.6 0.6 - 1.2 mg/dL 11/07/2019 4:22 AM [facility] Sodium 139 136 - 145 mmol/L 11/07/2019 4:22 AM [facility] Potassium 4.0 3.5 - 4.5 mmol/L 11/07/2019 4:22 AM [facility] Chloride 103 98 - 107 mmol/L 11/07/2019 4:22 AM [facility] CO2 28 22 - 29 mmol/L 11/07/2019 4:22 AM [facility] Glucose 104 70 - 115 mg/dL 11/07/2019 4:22 AM [facility] Calcium 8.4 8.4 - 10.2 mg/dL 11/07/2019 4:22 AM [facility] Anion Gap 12 8 - 18 11/07/2019 4:22 AM [facility] BUN/Creatinine Ratio 10 7 - 23 11/07/2019 4:22 AM [facility] Osmolality Calculated 286 270 - 300 mOsm/kg 11/07/2019 4:22 AM [facility] eGFR >60 >60 mL/min/1.7 3 m2 11/07/2019 4:22 AM [facility] Blood BLOOD SPECIMEN / Unknown Lab Venipuncture / Unknown 11/07/2019 2:59 AM G[employer]IC 11/07/2019 3:57 AM G[employer] Julien Stern Jr., MD LAB - CHEMISTR Y ORDERABLES [facility] [address] [phone] * (ABNORMAL) CBC W/O DIFFERENTIAL (11/07/2019 2:59 AM GUN MECHANIC) WBC 6.7 3.5 - 10.5 10? 3 /uL 11/07/2019 4:15 AM [facility] RBC 3.21(L) 3.90 - 5.00 10? 6 /uL 11/07/2019 4:15 AM [facility] Hemoglobin 8.7(L) 12.0 - 15.5 g/dL 11/07/2019 4:15 AM [facility] Hematocrit 27.5(L) 35.0 - 45.0 % 11/07/2019 4:15 AM [facility] MCV 85.7 81.0 - 97.0 fL 11/07/2019 4:15 AM [facility] MCH 27.1(L) 28.0 - 34.0 pg 11/07/2019 4:15 AM [facility] MCHC 31.6(L) 32.0 - 36.0 g/dL 11/07/2019 4:15 AM [facility] Platelet Count 233 150 - 400 10? 3 /uL 11/07/2019 4:15 AM [facility] RDW-SD 43.6 36.0 - 50.0 fL 11/07/2019 4:15 AM [facility] RDW-CV 13.9 11.2 - 14.8 % 11/07/2019 4:15 AM [facility] MPV 10.1 9.3 - 12.8 fL 11/07/2019 4:15 AM [facility] nRBC Absolute 0.00 0 10? 3 /uL 11/07/2019 4:15 AM [facility] nRBC Auto 0.0 0 /100 WBC 11/07/2019 4:15 AM [facility] Blood BLOOD SPECIMEN / Unknown Lab Venipuncture / Unknown 11/07/2019 2:59 AM GUN MECHANIC 11/07/2019 3:57 AM GUN MECHANIC Julien Stern Jr., MD LAB - HEMATOLO GY ORDERABLES [facility] [address] [place] [address] * (ABNORMAL) BASIC METABOLIC PANEL (CALCIUM TOTAL) (11/06/2019 2:47 AM GUN MECHANIC) BUN 6(L) 7 - 26 mg/dL 11/06/2019 3:46 AM [facility] Creatinine 0.5(L) 0.6 - 1.2 mg/dL 11/06/2019 3:46 AM [facility] Sodium 138 136 - 145 mmol/L 11/06/2019 3:46 AM [facility] Potassium 3.6 3.5 - 4.5 mmol/L 11/06/2019 3:46 AM [facility] Chloride 103 98 - 107 mmol/L 11/06/2019 3:46 AM [facility] CO2 27 22 - 29 mmol/L 11/06/2019 3:46 AM [facility] Glucose 118(H) 70 - 115 mg/dL 11/06/2019 3:46 AM [facility] Calcium 8.0(L) 8.4 - 10.2 mg/dL 11/06/2019 3:46 AM [facility] Anion Gap 12 8 - 18 11/06/2019 3:46 AM [facility] BUN/Creatinine Ratio 12 7 - 23 11/06/2019 3:46 AM [facility] Osmolality Calculated 285 270 - 300 mOsm/kg 11/06/2019 3:46 AM [facility] eGFR >60 >60 mL/min/1.7 3 m2 11/06/2019 3:46 AM [facility] Blood BLOOD SPECIMEN / Unknown Lab Venipuncture / Unknown 11/06/2019 2:47 AM GUN [employer]CH[employer]IC 11/06/2019 3:07 AM [employer] [facility] Julien Stern Jr., MD LAB - CHEMISTR Y ORDERABLES Performing Organization Address City/State/[place] Co de Phone Number [facility] [address] [place] [address] * (ABNORMAL) CBC W/O DIFFERENTIAL (11/06/2019 2:47 AM GUN MECHANIC) WBC 8.6 3.5 - 10.5 10? 3 /uL 11/06/2019 3:14 AM [facility] RBC 3.14(L) 3.90 - 5.00 10? 6 /uL 11/06/2019 3:14 AM [facility] Hemoglobin 8.4(L) 12.0 - 15.5 g/dL 11/06/2019 3:14 AM [facility] Hematocrit 26.9(L) 35.0 - 45.0 % 11/06/2019 3:14 AM [facility] MCV 85.7 81.0 - 97.0 fL 11/06/2019 3:14 AM [facility] MCH 26.8(L) 28.0 - 34.0 pg 11/06/2019 3:14 AM [facility] MCHC 31.2(L) 32.0 - 36.0 g/dL 11/06/2019 3:14 AM [facility] Platelet Count 207 150 - 400 10? 3 /uL 11/06/2019 3:14 AM [facility] RDW-SD 43.0 36.0 - 50.0 fL 11/06/2019 3:14 AM [facility] RDW-CV 13.7 11.2 - 14.8 % 11/06/2019 3:14 AM [facility] MPV 10.1 9.3 - 12.8 fL 11/06/2019 3:14 AM [facility] nRBC Absolute 0.00 0 10? 3 /uL 11/06/2019 3:14 AM [facility] nRBC Auto 0.0 0 /100 WBC 11/06/2019 3:14 AM [facility] Blood BLOOD SPECIMEN / Unknown Lab Venipuncture / Unknown 11/06/2019 2:47 AM GUN MECHANIC 11/06/2019 3:07 AM GUN [employer]CH[employer]IC Julien Stern Jr., MD LAB - HEMATOLO GY ORDERABLES [address] [phone] * BASIC METABOLIC PANEL (CALCIUM TOTAL) (11/05/2019 3:25 AM GUN MECHANIC) BUN 8 7 - 26 mg/dL 11/05/2019 4:14 AM [facility] Creatinine 0.7 0.6 - 1.2 mg/dL 11/05/2019 4:14 AM [facility] Sodium 140 136 - 145 mmol/L 11/05/2019 4:14 AM [facility] Potassium 3.6 3.5 - 4.5 mmol/L 11/05/2019 4:14 AM [facility] Chloride 106 98 - 107 mmol/L 11/05/2019 4:14 AM [facility] CO2 22 22 - 29 mmol/L 11/05/2019 4:14 AM [facility] Glucose 88 70 - 115 mg/dL 11/05/2019 4:14 AM [facility] Calcium 8.8 8.4 - 10.2 mg/dL 11/05/2019 4:14 AM [facility] Anion Gap 16 8 - 18 11/05/2019 4:14 AM [facility] BUN/Creatinine Ratio 11 7 - 23 11/05/2019 4:14 AM [facility] Osmolality Calculated 288 270 - 300 mOsm/kg 11/05/2019 4:14 AM [facility] eGFR >60 >60 mL/min/1.7 3 m2 11/05/2019 4:14 AM [facility] Blood BLOOD SPECIMEN / Unknown Lab Venipuncture / Unknown 11/05/2019 3:25 AM GUN MECHANIC 11/05/2019 3:35 AM GUN [employer]CH[employer]IC Julien Stern Jr., MD LAB - CHEMISTR Y ORDERABLES [facility] [address] [phone] * (ABNORMAL) CBC W/O DIFFERENTIAL (11/05/2019 3:25 AM GUN MECHANIC) WBC 11.4(H) 3.5 - 10.5 10? 3 /uL 11/05/2019 3:54 AM [facility] RBC 3.27(L) 3.90 - 5.00 10? 6 /uL 11/05/2019 3:54 AM [facility] Hemoglobin 8.9(L) 12.0 - 15.5 g/dL 11/05/2019 3:54 AM [facility] Hematocrit 28.5(L) 35.0 - 45.0 % 11/05/2019 3:54 AM [facility] MCV 87.2 81.0 - 97.0 fL 11/05/2019 3:54 AM [facility] MCH 27.2(L) 28.0 - 34.0 pg 11/05/2019 3:54 AM [facility] MCHC 31.2(L) 32.0 - 36.0 g/dL 11/05/2019 3:54 AM [facility] Platelet Count 160 150 - 400 10? 3 /uL 11/05/2019 3:54 AM [facility] RDW-SD 44.6 36.0 - 50.0 fL 11/05/2019 3:54 AM [facility] RDW-CV 13.9 11.2 - 14.8 % 11/05/2019 3:54 AM [facility] MPV 10.1 9.3 - 12.8 fL 11/05/2019 3:54 AM [facility] nRBC Absolute 0.00 0 10? 3 /uL 11/05/2019 3:54 AM [facility] nRBC Auto 0.0 0 /100 WBC 11/05/2019 3:54 AM [facility] Blood BLOOD SPECIMEN / Unknown Lab Venipuncture / Unknown 11/05/2019 3:25 AM GUN MECH[employer]IC 11/05/2019 3:35 AM [employer] [facility] Julien Stern Jr., MD LAB - HEMATOLO GY ORDERABLES Performing Organization Address City/[facility]/ZIP Co de Phone Number [address] [phone] * (ABNORMAL) BASIC METABOLIC PANEL (CALCIUM TOTAL) (11/04/2019 2:08 AM GUN MECHANIC) BUN 7 7 - 26 mg/dL 11/04/2019 3:48 AM [facility] Creatinine 0.8 0.6 - 1.2 mg/dL 11/04/2019 3:48 AM [facility] Sodium 140 136 - 145 mmol/L 11/04/2019 3:48 AM [facility] Potassium 3.9 3.5 - 4.5 mmol/L 11/04/2019 3:48 AM [facility] Chloride 106 98 - 107 mmol/L 11/04/2019 3:48 AM [facility] CO2 24 22 - 29 mmol/L 11/04/2019 3:48 AM [facility] Glucose 102 70 - 115 mg/dL 11/04/2019 3:48 AM [facility] Calcium 8.3(L) 8.4 - 10.2 mg/dL 11/04/2019 3:48 AM [facility] Anion Gap 14 8 - 18 11/04/2019 3:48 AM [facility] BUN/Creatinine Ratio 9 7 - 23 11/04/2019 3:48 AM [facility] Osmolality Calculated 288 270 - 300 mOsm/kg 11/04/2019 3:48 AM [facility] eGFR >60 >60 mL/min/1.7 3 m2 11/04/2019 3:48 AM [facility] Blood BLOOD SPECIMEN / Unknown Lab Venipuncture / Unknown 11/04/2019 2:08 AM GUN [facility]CH[employer]IC 11/04/2019 3:13 AM [facility] [facility] Julien Stern Jr., MD LAB - CHEMISTR Y ORDERABLES Performing Organization Address City/[facility]/ZIP Co de Phone Number [address] [phone] * (ABNORMAL) CBC W/O DIFFERENTIAL (11/04/2019 2:08 AM GUN MECHANIC) WBC 12.9(H) 3.5 - 10.5 10? 3 /uL 11/04/2019 3:18 AM [facility] RBC 3.33(L) 3.90 - 5.00 10? 6 /uL 11/04/2019 3:18 AM [facility] Hemoglobin 9.0(L) 12.0 - 15.5 g/dL 11/04/2019 3:18 AM [facility] Hematocrit 29.2(L) 35.0 - 45.0 % 11/04/2019 3:18 AM [facility] MCV 87.7 81.0 - 97.0 fL 11/04/2019 3:18 AM [facility] MCH 27.0(L) 28.0 - 34.0 pg 11/04/2019 3:18 AM [facility] MCHC 30.8(L) 32.0 - 36.0 g/dL 11/04/2019 3:18 AM [facility] Platelet Count 160 150 - 400 10? 3 /uL 11/04/2019 3:18 AM [facility] RDW-SD 44.5 36.0 - 50.0 fL 11/04/2019 3:18 AM [facility] RDW-CV 13.8 11.2 - 14.8 % 11/04/2019 3:18 AM [facility] MPV 10.3 9.3 - 12.8 fL 11/04/2019 3:18 AM [facility] nRBC Absolute 0.00 0 10? 3 /uL 11/04/2019 3:18 AM [facility] nRBC Auto 0.0 0 /100 WBC 11/04/2019 3:18 AM [facility] Blood BLOOD SPECIMEN / Unknown Lab Venipuncture / Unknown 11/04/2019 2:08 AM GUN [employer]CH[employer]IC 11/04/2019 3:13 AM [facility] Julien Stern Jr., MD LAB - HEMATOLO GY ORDERABLES [facility] [address] [phone] * (ABNORMAL) BASIC METABOLIC PANEL (CALCIUM TOTAL) (11/03/2019 7:14 AM [facility]) BUN 8 7 - 26 mg/dL 11/03/2019 7:49 AM [facility] Creatinine 0.8 0.6 - 1.2 mg/dL 11/03/2019 7:49 AM [facility] Sodium 140 136 - 145 mmol/L 11/03/2019 7:49 AM [facility] Potassium 4.2 3.5 - 4.5 mmol/L 11/03/2019 7:49 AM [facility] Chloride 106 98 - 107 mmol/L 11/03/2019 7:49 AM [facility] CO2 26 22 - 29 mmol/L 11/03/2019 7:49 AM [facility] Glucose 123(H) 70 - 115 mg/dL 11/03/2019 7:49 AM [facility] Calcium 8.5 8.4 - 10.2 mg/dL 11/03/2019 7:49 AM [facility] Anion Gap 12 8 - 18 11/03/2019 7:49 AM [facility] BUN/Creatinine Ratio 10 7 - 23 11/03/2019 7:49 AM [facility] Osmolality Calculated 290 270 - 300 mOsm/kg 11/03/2019 7:49 AM [facility] eGFR >60 >60 mL/min/1.7 3 m2 11/03/2019 7:49 AM [facility] Blood BLOOD SPECIMEN / Unknown Lab Venipuncture / Unknown 11/03/2019 7:14 AM [facility] 11/03/2019 7:30 AM [facility] Julien Stern Jr., MD LAB - CHEMISTR Y ORDERABLES [address] [phone] * (ABNORMAL) CBC W/O DIFFERENTIAL (11/03/2019 7:14 AM [facility]) WBC 12.4(H) 3.5 - 10.5 10? 3 /uL 11/03/2019 7:40 AM [facility] RBC 3.49(L) 3.90 - 5.00 10? 6 /uL 11/03/2019 7:40 AM [facility] Hemoglobin 9.5(L) 12.0 - 15.5 g/dL 11/03/2019 7:40 AM [facility] Hematocrit 30.4(L) 35.0 - 45.0 % 11/03/2019 7:40 AM [facility] MCV 87.1 81.0 - 97.0 fL 11/03/2019 7:40 AM [facility] MCH 27.2(L) 28.0 - 34.0 pg 11/03/2019 7:40 AM [facility] MCHC 31.3(L) 32.0 - 36.0 g/dL 11/03/2019 7:40 AM [facility] Platelet Count 183 150 - 400 10? 3 /uL 11/03/2019 7:40 AM [facility] RDW-SD 44.4 36.0 - 50.0 fL 11/03/2019 7:40 AM [facility] RDW-CV 13.9 11.2 - 14.8 % 11/03/2019 7:40 AM [facility] MPV 9.8 9.3 - 12.8 fL 11/03/2019 7:40 AM [facility] nRBC Absolute 0.00 0 10? 3 /uL 11/03/2019 7:40 AM [facility] nRBC Auto 0.0 0 /100 WBC 11/03/2019 7:40 AM [facility] Blood BLOOD SPECIMEN / Unknown Lab Venipuncture / Unknown 11/03/2019 7:14 AM [facility] 11/03/2019 7:30 AM [facility] - 11/03/2019 7:40 AM [facility] All CBC parameters have been checked. Julien Stern Jr., MD LAB - HEMATOLO GY ORDERABLES [facility] [address] [place] [address] * [place] OARM SURGERY (11/02/2019 3:19 PM [facility]) Narrative [facility] - 11/02/2019 3:20 PM [facility] Fluoroscopy was used for this exam in the OR. Please see the Operative report. Sammy Carrero MD FLUOROSCOPY ORDERABL ES Performing Organization Address City/[facility]/ZIP Co de Phone Number [facility] * [place] LEVI SURGERY (11/02/2019 3:02 PM [facility]) Narrative [facility] - 11/02/2019 3:03 PM [facility] Fluoroscopy was used for this exam in the OR. Please see the Operative report. Sammy Carrero MD FLUOROSCOPY ORDERABL ES Performing Organization Address City/[facility]/ZIP Co de Phone Number [facility] * (ABNORMAL) BLOOD GASES ART COMPLETE [facility] [place] (11/02/2019 2:09 PM [facility]) pH Arterial 7.44 7.35 - 7.45 11/02/2019 [...] 0.5 - 3.4 mmol/L 11/02/2019 2:13 PM [facility] Blood ARTERIAL BLOOD SPECIMEN / Unknown Venipuncture / Unknown 11/02/2019 2:09 PM [facility] 11/02/2019 2:09 PM [facility] Mat Irizarry MD LAB - BLOOD GASES OR DERABLES Performing Organization Address City/State/[place] Co de Phone Number [address] [phone] * (ABNORMAL) BLOOD GASES ART COMPLETE [facility] [place] (11/02/2019 12:31 PM [facility]) pH Arterial 7.36 7.35 - 7.45 11/02/2019 12:43 PM [facility] pCO2 Arterial 41 35 - 45 mmHg 11/02/2019 12:43 PM [facility] pO2 Arterial 162(H) 71 - 95 mmHg 11/02/2019 12:43 PM [facility] HCO3 Arterial 22.3 22.0 - 26.0 mmol/L 11/02/2019 12:43 PM [facility] TCO2 Arterial 23.6(L) 25.0 - 29.0 mmol/L 11/02/2019 12:43 PM [facility] Base Excess Arterial -2.9(L) -2.0 - 2.0 mmol/L 11/02/2019 12:43 PM [facility] Hemoglobin Arterial 10.1(L) 12.0 - 15.5 g/dL 11/02/2019 12:43 PM [facility] Oxyhemoglobin Arterial 97.7 95.0 - 100.0 % 11/02/2019 12:43 PM [facility] Carboxyhemoglobin 0.3 0.0 - 3.0 % 11/02/2019 12:43 PM [facility] Methemoglobin 0.7 0.0 - 2.0 % 11/02/2019 12:43 PM [facility] FI O2 Arterial 35.0 % 11/02/2019 12:43 PM [facility] Ionized Calcium Whole Blood 1.08 mmol/L 11/02/2019 12:43 PM [facility] Adjusted Ionized Calcium 1.06(L) 1.19 - 1.34 mmol/L 11/02/2019 12:43 PM [facility] Sodium Whole Blood 143 135 - 145 mmol/L 11/02/2019 12:43 PM [facility] Potassium Whole Blood 3.7 3.5 - 5.5 mmol/L 11/02/2019 12:43 PM [facility] Chloride Whole Blood 109 101 - 111 mmol/L 11/02/2019 12:43 PM [facility] Glucose Whole Blood 147(H) 70 - 110 mg/dL 11/02/2019 12:43 PM [facility] Lactic Acid Whole Blood 2.7 0.5 - 3.4 mmol/L 11/02/2019 12:43 PM [facility] Blood ARTERIAL BLOOD SPECIMEN / Unknown Venipuncture / Unknown 11/02/2019 12:31 PM GUN MECHANIC 11/02/2019 12:36 PM [facility] Mat Irizarry MD LAB - BLOOD GASES OR DERABLES [address] [phone] * (ABNORMAL) BLOOD GASES ART COMPLETE [facility] OR (11/02/2019 10:58 AM GUN MECHANIC) pH Arterial 7.40 7.35 - 7.45 11/02/2019 11:06 AM [facility] pCO2 Arterial 37 35 - 45 mmHg 11/02/2019 11:06 AM [facility] pO2 Arterial 152(H) 71 - 95 mmHg 11/02/2019 11:06 AM [facility] HCO3 Arterial 22.6 22.0 - 26.0 mmol/L 11/02/2019 11:06 AM [facility] TCO2 Arterial 23.7(L) 25.0 - 29.0 mmol/L 11/02/2019 11:06 AM [facility] Base Excess Arterial -1.8 -2.0 - 2.0 mmol/L 11/02/2019 11:06 AM [facility] Hemoglobin Arterial 10.9(L) 12.0 - 15.5 g/dL 11/02/2019 11:06 AM [facility] Oxyhemoglobin Arterial 97.9 95.0 - 100.0 % 11/02/2019 11:06 AM [facility] Carboxyhemoglobin 0.3 0.0 - 3.0 % 11/02/2019 11:06 AM [facility] Methemoglobin 0.3 0.0 - 2.0 % 11/02/2019 11:06 AM [facility] FI O2 Arterial 33.0 % 11/02/2019 11:06 AM [facility] Ionized Calcium Whole Blood 1.11 mmol/L 11/02/2019 11:06 AM [facility] Adjusted Ionized Calcium 1.11(L) 1.19 - 1.34 mmol/L 11/02/2019 11:06 AM [facility] Sodium Whole Blood 140 135 - 145 mmol/L 11/02/2019 11:06 AM [facility] Potassium Whole Blood 3.9 3.5 - 5.5 mmol/L 11/02/2019 11:06 AM [facility] Chloride Whole Blood 108 101 - 111 mmol/L 11/02/2019 11:06 AM [facility] Glucose Whole Blood 164(H) 70 - 110 mg/dL 11/02/2019 11:06 AM [facility] Lactic Acid Whole Blood 2.0 0.5 - 3.4 mmol/L 11/02/2019 11:06 AM [facility] Blood ARTERIAL BLOOD SPECIMEN / Unknown Venipuncture / Unknown 11/02/2019 10:58 AM GUN MECHANIC 11/02/2019 10:58 AM GUN MECHANIC Mat Irizarry MD LAB - BLOOD GASES OR DERABLES [facility] [address] [place] [address] * (ABNORMAL) BASIC METABOLIC PANEL (CALCIUM TOTAL) (11/02/2019 2:50 AM GUN MECHANIC) BUN 10 7 - 26 mg/dL 11/02/2019 3:35 AM [facility] Creatinine 0.7 0.6 - 1.2 mg/dL 11/02/2019 3:35 AM [facility] Sodium 143 136 - 145 mmol/L 11/02/2019 3:35 AM [facility] Potassium 4.0 3.5 - 4.5 mmol/L 11/02/2019 3:35 AM [facility] Chloride 111(H) 98 - 107 mmol/L 11/02/2019 3:35 AM [facility] CO2 24 22 - 29 mmol/L 11/02/2019 3:35 AM [facility] Glucose 97 70 - 115 mg/dL 11/02/2019 3:35 AM [facility] Calcium 8.8 8.4 - 10.2 mg/dL 11/02/2019 3:35 AM [facility] Anion Gap 12 8 - 18 11/02/2019 3:35 AM [facility] BUN/Creatinine Ratio 14 7 - 23 11/02/2019 3:35 AM [facility] Osmolality Calculated 295 270 - 300 mOsm/kg 11/02/2019 3:35 AM [facility] eGFR >60 >60 mL/min/1.7 3 m2 11/02/2019 3:35 AM [facility] Blood BLOOD SPECIMEN / Unknown Lab Venipuncture / Unknown 11/02/2019 2:50 AM GUN MECHANIC 11/02/2019 3:09 AM [facility] Julien Stern Jr., MD LAB - CHEMISTR Y ORDERABLES [address] [phone] * (ABNORMAL) CBC W/O DIFFERENTIAL (11/02/2019 2:50 AM GUN MECHANIC) WBC 4.7 3.5 - 10.5 10? 3 /uL 11/02/2019 3:18 AM [facility] RBC 4.57 3.90 - 5.00 10? 6 /uL 11/02/2019 3:18 AM [facility] Hemoglobin 12.1 12.0 - 15.5 g/dL 11/02/2019 3:18 AM [facility] Hematocrit 39.4 35.0 - 45.0 % 11/02/2019 3:18 AM [facility] MCV 86.2 81.0 - 97.0 fL 11/02/2019 3:18 AM [facility] MCH 26.5(L) 28.0 - 34.0 pg 11/02/2019 3:18 AM [facility] MCHC 30.7(L) 32.0 - 36.0 g/dL 11/02/2019 3:18 AM [facility] Platelet Count 205 150 - 400 10? 3 /uL 11/02/2019 3:18 AM [facility] RDW-SD 42.5 36.0 - 50.0 fL 11/02/2019 3:18 AM [facility] RDW-CV 13.6 11.2 - 14.8 % 11/02/2019 3:18 AM [facility] MPV 9.9 9.3 - 12.8 fL 11/02/2019 3:18 AM [facility] nRBC Absolute 0.00 0 10? 3 /uL 11/02/2019 3:18 AM [facility] nRBC Auto 0.0 0 /100 WBC 11/02/2019 3:18 AM [facility] Blood BLOOD SPECIMEN / Unknown Lab Venipuncture / Unknown 11/02/2019 2:50 AM GUN MECHANIC 11/02/2019 3:09 AM GUN MECHANIC Julien Stern Jr., MD LAB - HEMATOLO GY ORDERABLES [facility] [address] [phone] * PREPARE (CROSSMATCH) RBC UNIT(S), 2 Units (11/01/2019 3:59 PM GUN MECHANIC) Unit Description LR Red Cells [facility] Unit ABO A [facility] Unit Rh POS [facility] Product Number RA2 [facility] Unit Donor # [id number] [facility] Unit Status released [facility] Product Code [id number] [facility] Blood Type Barcode 6200 [facility] Unit Description LR Red Cells [facility] Unit ABO A [facility] Unit Rh POS [facility] Product Number RA1 [facility] Unit Donor # [id number] [facility] Unit Status released [facility] Product Code [id number] [facility] Blood Type Barcode 6200 [facility] Blood Bank BLOOD SPECIMEN / Unknown 11/01/2019 3:59 PM GUN MECHANIC 11/01/2019 3:59 PM GUN MECHANIC Navneet Aguilar MD LAB - BLOOD BANK ORD ERABLES [facility] [address] * COOKIE DIRECT (11/01/2019 3:51 PM GUN MECHANIC) [facility] Direct Cookie (CALVIN) NEG 11/01/2019 5:25 PM GUN MECHANIC [facility] Blood Bank BLOOD SPECIMEN / Unknown Lab Venipuncture / Unknown 11/01/2019 3:51 PM GUN MECHANIC 11/01/2019 3:58 PM GUN MECHANIC Manuelito Young MD LAB - BLOOD BANK O RDERABLES [facility] [address] * ANTIBODY IDENTIFICATION (11/01/2019 3:51 PM GUN MECHANIC) [facility] Antibody 1 POS, Anti-Lianna 11/01/2019 5:24 PM GUN MECHANIC [facility] Blood Bank BLOOD SPECIMEN / Unknown Lab Venipuncture / Unknown 11/01/2019 3:51 PM GUN MECHANIC 11/01/2019 3:58 PM GUN MECHANIC Manuelito Young MD LAB - BLOOD BANK O RDERABLES [facility] [address] * TYPE + SCREEN PANEL (11/01/2019 3:51 PM GUN MECHANIC) Antibody Screen POS 0 4:36 PM GUN MECHANIC [facility] ABO Rh A POS 11/01/2019 4:36 PM GUN MECHANIC [facility] Blood Bank BLOOD SPECIMEN / Unknown Lab Venipuncture / Unknown 11/01/2019 3:51 PM GUN MECHANIC 11/01/2019 3:58 PM GUN MECHANIC Manuelito Young MD LAB - BLOOD BANK O RDERABLES Performing Organization Address [facility] Co de Phone Number [facility] [address] documented in this encounter Visit Diagnoses Diagnosis Lumbosacral radiculopathy at L5- Primary Thoracic or lumbosacral neuritis or radiculitis, unspecified Lumbosacral radiculopathy at L5 Thoracic or lumbosacral neuritis or radiculitis, unspecified Spondylolisthesis at L4-L5 level Diagnosis unknown Other unknown and unspecified cause of morbidity or mortality documented in this encounter Administered Medications Inactive Administered Medications - up to 3 most recent administrations Medication Order MAR Action Action Date Dose Rate Site acetaminophen (TYLENOL) tablet 650 mg 650 mg, Oral, EVERY 4 HOURS PRN, Mild Pain, Starting on Tue11/02/19 at 1804, Until Tue11/12/19 at 2106, Post-op $ Given 11/02/2019 9:47 PM GUN MECHANIC 650 mg amitriptyline (ELAVIL) tablet 25 mg 25 mg, Oral, AT BEDTIME, First dose on Tue11/01/19 at 2100, Until Discontinued $ Given 11/11/2019 8:32 PM CDT 25 mg $ Given 11/10/2019 9:41 PM GUN MECHANIC 25 mg $ Given 11/09/2019 9:06 PM GUN MECHANIC 25 mg apixaban (ELIQUIS) tablet 2.5 mg 2.5 mg, Oral, 2 TIMES DAILY, First dose on Tue11/05/19 at 0815, Until Discontinued $ Given 11/12/2019 9:17 AM CDT 2.5 m g $ Given 11/11/2019 8:32 PM CDT 2.5 mg $ Given 11/11/2019 9:55 AM CDT 2.5 mg bupivacaine 0.25% - EPINEPHrine 1:200,000 (PF) injection PRN, Starting on Tue11/02/19 at 1515, Until Tue11/02/19 at 1622, Intra-op $ Given 11/02/2019 3:15 PM GUN MECHANIC 30 mL Ope rative Site docusate sodium (COLACE) capsule 100 mg 100 mg, Oral, DAILY, First dose on Tue11/02/19 at 1815, Until Discontinued, Post-op $ Given 11/11/2019 9:56 AM CDT 100 mg $ Given 11/10/2019 7:56 AM GUN MECHANIC 100 mg $ Given 11/09/2019 8:15 AM GUN MECHANIC 100 mg DULoxetine (CYMBALTA) capsule 30 mg 30 mg, Oral, DAILY, First dose on Tue11/01/19 at 1530, Until Discontinued, Capsules should be swallowed whole and not chewed, crushed, or opened to be sprinkled on food or mixed with liquids. $ Given 11/12/2019 9:17 AM CDT 30 mg $ Given 11/11/2019 9:56 AM CDT 30 mg $ Given 11/10/2019 7:56 AM GUN MECHANIC 30 mg HYDROmorphone (DILAUDID) injection 0.5 mg 0.5 mg, Intravenous, EVERY 4 HOURS PRN, Severe Pain, Starting on Tue11/07/19 at 1200, Until Tue11/12/19 at 2106, Use IV when enteral not tolerated, ineffective, or refused. $ Given 11/08/2019 8:59 PM GUN MECHANIC 0.5 mg naloxone (NARCAN) injection 0.2 mg 0.2 mg, [...] at 1804, Until Tue11/12/19 at 2106, Post-op oxyCODONE-acetaminophen (PERCOCET) 5-325 MG tablet 2 tablet 2 tablet, Oral, EVERY 4 HOURS PRN, Severe Pain, Starting on Tue11/02/19 at 1804, Until Tue11/12/19 at 2106, Post-op $ Given 11/12/2019 3:37 [...] administration, Post-op $ Given 11/09/2019 8:15 AM GUN MECHANIC 17 g $ Given 11/08/2019 8:44 AM GUN MECHANIC 17 g $ Given 11/07/2019 8:39 AM GUN MECHANIC 17 g senna-docusate (SENOKOT-S) tablet 1 tablet 1 tablet, Oral, DAILY, First dose on Tue11/02/19 at 1815, Until Discontinued, Post-op $ Given 11/09/2019 8:15 AM GUN MECHANIC 1 tablet $ Given 11/08/2019 8:44 AM GUN MECHANIC 1 tablet $ Given 11/07/2019 8:39 AM GUN MECHANIC 1 tablet throat lozenge 1 lozenge 1 lozenge, Oral, EVERY 2 HOURS PRN, Sore Throat, Starting on 11/04/19 at 1014, Until 11/12/19 at 2106 vancomycin (VANCOCIN) injection PRN, Starting on Tue11/02/19 at 1515, Until Tue11/02/19 at 1622, Intra-op $ Given 11/02/2019 3:15 PM GUN MECHANIC 1,000 mg Operative Site documented in this encounter Active and Recently Administered Medications Due to Daylight Saving Time, this section may contain times in both GUN MECHANIC and CDT. Scheduled Medication Order 11/10/2019 11/11/2019 [...] RN) 0917 ($ Given - Provider: Linh Valencia, COLETTE) docusate sodium (COLACE) capsule 100 mg 100 mg, Oral, DAILY, First dose on Tue11/02/19 at 1815, Until Discontinued, Post-op 0756 ($ Given - Provider: Jossie Eric) 0956 ($ Given - Provider: Jossie Eric) 0916 (Not Administered - Provider: Linh Valencia, COLETTE - Reason: Patient Condition) DULoxetine (CYMBALTA) capsule [...] Martinez RN)0556 (See Alternative - Provider: Zahira Martinez, COLETTE)0956 (See Alternative - Provider: Jossie Eric)1638 (See Alternative - Provider: Enma Earl RN)2032 (See Alternative - Provider: Zahira Martinez, COLETTE) 0217 (See Alternative - Provider: Zahira Martinez, COLETTE)0622 (See Alternative - Provider: Zahira Martinez, COLETTE)1124 (See Alternative - Provider: Linh Valencia RN)1537 (See Alternative - Provider: Linh Valencia RN) oxyCODONE-acetaminophe n (PERCOCET) 5-325 MG tablet 2 tablet(Linked Group 1) 2 tablet, Oral, EVERY 4 HOURS PRN, Severe Pain, Starting on 11/02/19 at 1804, Until Tue11/12/19 at 2106, Post-op 0302 ($ Given - Provider: Cassie Parsons RN)0756 ($ Given - Provider: Jossie Eric)1409 ($ Given - Provider: Jossie Eric)1838 ($ Given - Provider: Jossie Eric) 0101 ($ Given - Provider: Zahira Martinez RN)0556 ($ Given - Provider: Zahira Martinez RN)0956 ($ Given - Provider: Jossie Eric)1638 ($ Given - Provider: Enma Earl RN)2032 ($ Given - Provider: Zahira Martinez RN) [...] 4 HOURS PRN, Moderate Pain, Starting on 11/02/19 at 1804, Until 11/12/19 at 2106, Post-op Or oxyCODONE-acetaminophen (PERCOCET) 5-325 MG tablet 2 tabletJump to med 2 tablet, Oral, EVERY 4 HOURS PRN, Severe Pain, Starting on Tue11/02/19 at 1804, Until 11/12/19 at 2106, Post-op documented in this encounter Care Teams Restorative Aide Relationship Specialty Start Date End Date Esperanza Ho MD [address] [place] [address] PCP - General 04/10/19 documented as of this encounter
--- OUTSIDE RECORDS SUMMARY | 2024-08-26 07:04 | XMS_ITS | Encounter Summary ---
Author Organization [facility] Address [address] [facility] [place] [address] Care Team Providers Care Electroplater Automatic Name Role Phone Esperanza Ho MD Primary Care Provider + Reason for Visit * Reason Onset Date Comments MEDICATION REFILL 01/18/2020 Encounter Details Date Type Department Care Team (Late st Contact Info) Description 01/18/2020 Refill [facility] - Orthopedics [address] [facility] [place] [address] Sammy Carrero MD [address] [facility] [address] [place] [address] MEDICATION REFILL Social History Tobacco [...] Telephone Encounter - Bernard Hayes, RN - 01/18/2020 10:35 AM CDT Pt is status post??L4-S1 ALIF, L4-S1 PISF [address] Dr[address] Carrero??on 11/02/2019. Pt is requesting refill of pain medication.? Last Fill??01/09/2020 Last Visit: 01/08/2020 Next Visit: 04/15/2020 ? Orders placed and forwarded to Dr. Carrero for review.?? documented in this encounter Plan of Treatment Not on file documented as of this encounter Visit Diagnoses Diagnosis S/P lumbar spinal fusion- Primary Arthrodesis status documented in this encounter Care Teams Electroplater Automatic Relationship Specialty Start Date End Date Esperanza Ho MD [address] [facility] [address] [place] [address] PCP - General 04/10/19 documented as of this encounter
--- OUTSIDE RECORDS SUMMARY | 2024-08-26 07:04 | XMS_ITS | Encounter Summary ---
Author Organization [facility] Address [address] [facility] [place] [address] Care Team Providers Care Rn Documentation Specialist Name Role Phone Esperanza Ho MD Primary Care Provider + Reason for Referral * Radiology Services (Routine) - Closed Specialty Diagnoses / Procedures Referred By Contac t Referred To Contact MRI Diagnoses S/P lumbar spinal fusion Procedures MRI [place] [address] [place] [id number] Referral ID Status Reason Start Date Expiration Date Visits Re quested Visits Authorized [id number] Closed 05/21/2020 07/05/2020 1 1 Reason for Visit * Radiology Services (Routine) - Closed Specialty Diagnoses / Procedures Referred By Contac t Referred To Contact MRI Diagnoses S/P lumbar spinal fusion Procedures MRI LUMBAR SPINE WO CONTRAST Montana Holliday IV, MD [address] [place] [id number] Referral ID Status Reason Start Date Expiration Date Visits Re quested Visits Authorized [id number] Closed 05/21/2020 07/05/2020 1 1 Encounter Details Date Type Department Care Team (Latest Contact Info) Description 05/28/2020 11:00 AM CDT - 05/28/2020 11:59 PM CDT Hospital Encounter [facility] MRI [address] [place] [id number] Montana Holliday IV, MD [address] [facility] [place] [address] Discharge Disposition: Home or Self Care Social [...] or suspected to have Coronavirus / COVID-19? No / Unsure 05/28/2020 10:54 AM CDT documented as of this encounter Functional [...] mg by mouth once daily oxyCODONE-acetaminophen (PERCOCET) 10-325 MG tabletIndications:S/P lumbar spinal [...] Procedure Name Priority Date/Time Associated Diagnosis Comments MRI LUMBAR SPINE WO CONTRAST Routine 05/28/2020 12:00 PM CDT S/P lumbar spinal fusion documented in this encounter Results * MRI LUMBAR SPINE WO CONTRAST (05/28/2020 12:00 PM CDT) Anatomical Region Laterality Modality Spine Magnetic Resonan ce 05/28/2020 1:20 PM CDT Impressions 05/28/2020 5:41 PM CDT IMPRESSION: Postoperative appearance of lumbosacral fusion at L4-S1 is uncomplicated. Osseous bridging of interbody fusion cannot be verified on this study. Report dictated by Aric Winslow MD (senior vice president and chief information officer). I, Dr. JIMBO JONES have personally reviewed and interpreted this examination/study. This report was electronically signed by JIMBO JONES ??on 05/28/2020 5:41 PM . Narrative [...] screws and are not seen. Procedure Note Jimbo Jones MD - 05/28/2020 EXAMINATION: MRI OF [...] on this study. Report dictated by Aric Wnislow MD (senior vice president and chief information officer). I, Dr. JIMBO JONES have personally reviewed and interpreted this examination/study. This report was electronically signed by JIMBO JONES on 05/28/2020 5:41 PM . Montana Holliday IV, MD MR ORDERABLES documented in this encounter Visit Diagnoses Diagnosis S/P lumbar spinal fusion Arthrodesis status documented in this encounter Care Teams Rn Documentation Specialist Relationship Specialty Start Date End Date Esperanza Ho MD [address] [facility] [address] [place] [address] PCP - General 04/10/19 documented as of this encounter
--- OUTSIDE RECORDS SUMMARY | 2024-08-26 07:04 | XMS_ITS | Encounter Summary ---
Author Organization [facility] Address [address] [facility] [place] [address] Care Team Providers Care Health Associate Name Role Phone Esperanza Ho MD Primary Care Provider + Reason for Visit * Reason Comments Preop Exam lumbar Encounter Details Date Type Department Care Team (Late st Contact Info) Description 10/23/2019 1:30 PM PROCESS CONSULTANT Office Visit [facility] - Orthopedics [address] [facility] [place] [address] Sammy Carrero MD [address] [facility] [address] [place] [address] Lumbosacral radiculopathy at L5 (Primary [...] Sign Reading Time Taken Comments Blood Pressure 149/94 10/23/2019 1:02 PM PROCESS CONSULTANT Pulse 85 10/23/2019 1:02 PM PROCESS CONSULTANT Temperature 36.9 ??C (98.5 ??F) 10/23/2019 1:02 PM CS T Respiratory Rate - - Oxygen Saturation 99% 10/23/2019 1:02 PM PROCESS CONSULTANT Inhaled Oxygen Concentration - - Weight 92.1 kg (203 lb) 10/23/2019 1:02 PM PROCESS CONSULTANT Height 167.6 cm (5' 6 ) 10/23/2019 1:02 PM PROCESS CONSULTANT Body Mass Index 32.77 10/23/2019 1:02 PM PROCESS CONSULTANT documented in this encounter Progress Notes * Sammy Carrero MD - 10/26/2019 11:36 AM CST Orthopaedic Spine Surgery Attending Clinic Note Patient returns to clinic for preoperative discussion to review risk stratification, operative plan, perioperative care plan, and postoperative rehabilitative plan. She has otherwise been well without fever, cough, shortness of breath. She continues to be debilitated by back and left leg pain. Vitals: 10/23/19 1302 BP: 149/94 Pulse: 85 Temp: 98.5 ??F (36.9 ??C) SpO2: 99% Weight: 203 lb (92.1 kg) Height: 5' 6 (1.676 m) Imaging studies reviewed include standing radiographs, MRI lumbar spine, CT lumbar spine. Laboratory data reviewed. PAT evaluation with elevated WBC in urine, culture pending. Impression: lumbar spondylosis, spondylolisthesis with resultant lumbar radiculopathy and neurogenic claudication. Plan: Proceed with L4-S1 AP fusion with Dr. Hannah as co-surgeon. Review urine culture and begin treatment if positive. We reviewed the risks of surgery to include viscus injury, vascular injury, neural injury, loss of bowel and/or bladder control, permanent paralysis or weakness, failure to relieve pain or improve function, pseudarthrosis, infection, need for further surgery, blindness, stroke, heart attack, and . We discussed that the operative plan would entail initial ALIF L4/5 and L5/S1 using PEEK Perimeter cages, cancellous allograft, and INFUSE in conjunction with Dr. Hannah with same day PISF L4-S1. Wereviewed the operative plan, perioperative care plan, and postoperative rehabilitative plan in detail. Patient voiced understanding and wished to proceed as above and will contact me should concerns or questions arise in the interim. Total time spent was 10 minutes with greater than 50% of time spent counseling and coordination of care. Sammy Carrero MD FACS ESS CONSULTANT * Cesilia Leavitt - 10/23/2019 1:04 PM CST Chief Complaint: Chief Complaint Patient presents with ??? Preop Exam lumbar BP 149/94 (BP SITE: LEFT ARM, BP POSITION: SITTING, BP CUFF SIZE: 12) Pulse 85 Temp 98.5 ??F (36.9 ??C) (Oral) Ht 1.676 m (5' 6 ) Wt 92.1 kg (203 lb) SpO2 99% BMI 32.77 kg/m2 ESS CONSULTANT documented in this encounter Plan of Treatment Not on file documented as of this encounter Visit Diagnoses Diagnosis Lumbosacral radiculopathy at L5- Primary Thoracic or lumbosacral neuritis or radiculitis, unspecified Spondylolisthesis at L4-L5 level documented in this encounter Care Teams Health Associate Relationship Specialty Start Date End Date Esperanza Ho MD [address] [place] [address] PCP - General 04/10/19 documented as of this encounter
--- OUTSIDE RECORDS SUMMARY | 2024-08-26 07:04 | XMS_ITS | Encounter Summary ---
Author Organization [facility] Address [address] [place] [address] Care Team Providers Care Louver Door Assembler Name Role Phone Esperanza Ho MD Primary Care Provider + Encounter Details Date Type Department Care Team (Latest Contact Info) Description 10/22/2019 12:00 PM [facility] - 10/22/2019 12:04 PM [facility]ER Hospital Encounter [facility] OP DRAW STATION [address] [place] [phone] Discharge Disposition: Home or Self Care Social [...] Procedure Name Priority Date/Time Associated Diagnosis Comments PTT [facility] Routine 10/22/2019 12:09 PM [facility] TIER Spondylolisthesis at L4-L5 level Spinal stenosis of lumbar region with neurogenic claudication Lumbosacral radiculopathy at L5 PT-INR [facility] Routine 10/22/2019 12:09 PM [facility] TIER Spondylolisthesis at L4-L5 level Spinal stenosis of lumbar region with neurogenic claudication Lumbosacral radiculopathy at L5 URINALYSIS W/MICROSCOPIC NO CULTURE Routine 10/22/2019 12:09 PM [facility] Spondylolisthesis at L4-L5 level Spinal stenosis of lumbar region with neurogenic claudication Lumbosacral radiculopathy at L5 CULTURE URINE Routine 10/22/2019 12:09 PM [facility] Spondylolisthesis at L4-L5 level Spinal stenosis of lumbar region with neurogenic claudication Lumbosacral radiculopathy at L5 TYPE + SCREEN PANEL Routine 10/22/2019 1 2:09 PM [facility] Spondylolisthesis at L4-L5 level Spinal stenosis of lumbar region with neurogenic claudication Lumbosacral radiculopathy at L5 COOKIE DIRECT Routine 10/22/2019 12:09 PM [facility] TIER Spondylolisthesis at L4-L5 level Spinal stenosis of lumbar region with neurogenic claudication Lumbosacral radiculopathy at L5 ANTIBODY IDENTIFICATION Routine 10/22/2019 12:09 PM [facility] Spondylolisthesis at L4-L5 level Spinal stenosis of lumbar region with neurogenic claudication Lumbosacral radiculopathy at L5 CBC W AUTO DIFFERENTIAL Routine 10/22/2019 12:09 PM [facility] Spondylolisthesis at L4-L5 level Spinal stenosis of lumbar region with neurogenic claudication Lumbosacral radiculopathy at L5 COMPREHENSIVE METABOLIC PANEL Routine 10/22/2019 12:09 PM [facility]ER Spondylolisthesis at L4-L5 level Spinal stenosis of lumbar region with neurogenic claudication Lumbosacral radiculopathy at L5 documented in this encounter Results * ANTIBODY IDENTIFICATION (10/22/2019 12:09 PM [facility]) Antibody 1 POS, Anti-Lianna 10/22/2019 4:24 PM [facility] Blood Bank BLOOD SPECIMEN / Unknown Lab Venipuncture / Unknown 10/22/2019 12:09 PM [facility] TI[facility] 10/22/2019 12:32 PM [facility] TIER Sammy Carrero MD LAB - BLOOD BANK ORD ERABLES [facility] [address] [place] [address] * COOKIE DIRECT (10/22/2019 12:09 PM [facility] TIER) Direct Cookie (CALVIN) NEG 10/22/2019 2:00 PM [facility] Blood Bank BLOOD SPECIMEN / Unknown Lab Venipuncture / Unknown 10/22/2019 12:09 PM [facility] TIER 10/22/2019 12:32 PM [facility] TIER Sammy Carrero MD LAB - BLOOD BANK ORD ERATIGRE Performing Organization Address City/[facility]/ZIP Co de Phone Number [facility] [address] [place] [address] * (ABNORMAL) URINALYSIS W/MICROSCOPIC NO CULTURE (10/22/2019 12:09 PM [facility]) Color UA Straw Straw, Yellow, Colorless 10/22/2019 1:24 PM [facility] Clarity UA Slt Cloudy Clear, Slt Cloudy 10/22/2019 1:24 PM [facility] Specific Reading UA 1.008 1.005 - 1.030 10/22/2019 1:24 PM [facility] pH UA 6.0 5.0 - 8.0 pH 10/22/2019 1:24 PM [facility] Protein UA Negative Negative mg/dL 10/22/2019 1:24 PM [facility] Glucose UA Negative Negative mg/dL 10/22/2019 1:24 PM [facility] Ketone UA Negative Negative mg/dL 10/22/2019 1:24 PM [facility] Bilirubin UA Negative Negative mg/dL 10/22/2019 1:24 PM [facility] Blood UA Negative Negative 10/22/2019 1:24 PM [facility] Nitrite UA Negative Negative 10/22/2019 1:24 PM [facility] Leukocyte Esterase 3+(A) Negative 10/22/2019 1:24 PM [facility] Urobilinogen UA Negative Negative mg/dL 10/22/2019 1:24 PM [facility] RBC UA 3-5 None Seen, 0-2, 3-5 /HPF 10/22/2019 1:24 PM [facility] WBC UA 11-20(A) None Seen, 0-5 /HPF 10/22/2019 1:24 PM [facility] Bacteria UA 1+(A) None, Trace /HPF 10/22/2019 1:24 PM [facility] Squamous Epithelial Cells UA 3-5(A) None Seen, 0-2 /HPF 10/22/2019 1:24 PM [facility] Renal Epithelial Cells UA 0-2 None Seen, 0-2 /HPF 10/22/2019 1:24 PM [facility] Mucus UA 1+ None, 1+ /LPF 10/22/2019 1:24 PM [facility] Urine URINE SPECIMEN OBTAINED BY CLEAN CATCH PROCEDURE / Unknown Collection / Unknown 10/22/2019 12:09 PM [facility] 10/22/2019 1:07 PM [facility] Narrative [facility] - 10/22/2019 1:24 PM [facility] [employer] TIER Sammy Carrero MD LAB - URINALYSIS ORD ERABLES Performing Organization Address City/[facility]/ZIP Co de Phone Number [address] [phone] * TYPE + SCREEN PANEL (10/22/2019 12:09 PM [facility]) Antibody Screen POS 0 1:26 PM [facility] ABO Rh A POS 10/22/2019 1:26 PM [facility] TI[facility] Blood Bank BLOOD SPECIMEN / Unknown Lab Venipuncture / Unknown 10/22/2019 12:09 PM [facility] 10/22/2019 12:32 PM [facility] Sammy Carrero MD LAB - BLOOD BANK ORD ERABLES [facility] [address] * PTT [facility] (10/22/2019 12:09 PM [facility]) APTT 28.7 23.0 - 38.4 Seconds 10/22/2019 2:11 PM [facility] Comment: * Please Note: ??New therapeutic range for heparin therapy * Suggested therapeutic range for full dose I.V. unfractionated heparin therapy for venous thromboembolism is 71 to 109 seconds. Blood BLOOD SPECIMEN / Unknown Lab Venipuncture / Unknown 10/22/2019 12:09 PM [facility] 10/22/2019 1:07 PM [facility] Sammy Carrero MD LAB - COAGULATION OR DERABLES [facility] [address] [phone] * PT-INR [facility] (10/22/2019 12:09 PM [facility]) PT 12.5 12.1 - 14.8 Seconds 10/22/2019 2:11 PM [facility] INR 1.0 See Comment 10/22/2019 2:11 PM [facility] Comment:The suggested therap eutic range for standard coumadin (warfarin) therapy is an INR of 2.0-3.0. For high-risk patients (Mechanical Mitral Valve Prosthesis, etc.), the suggested prophylactic therapeutic range is an INR of 2.5-3.5. Blood BLOOD SPECIMEN / Unknown Lab Venipuncture / Unknown 10/22/2019 12:09 PM [facility] 10/22/2019 1:07 PM [facility] Sammy Carrero MD LAB - COAGULATION OR DERABLES Performing Organization Address City/[facility]/ZIP Co de Phone Number [facility] [address] [phone] * CULTURE URINE (10/22/2019 12:09 PM [facility]) Pathologist [facility] Culture Urine 10,000-50,000 CFU/mL urogenital dylon LETA 10/24/2019 3:58 AM [facility] Urine URINE SPECIMEN OBTAINED BY CLEAN CATCH PROCEDURE / Unknown Collection / Unknown 10/22/2019 12:09 PM [facility] 10/22/2019 1:07 PM [facility] Sammy Carrero MD LAB - MICROBIOLOGY O RDERABLES Performing Organization Address City/[facility]/ZIP Co de Phone Number [facility] [address] [phone] * (ABNORMAL) COMPREHENSIVE METABOLIC PANEL (10/22/2019 12:09 PM [facility] TIER) [facility] BUN 8 7 - 26 mg/dL 10/22/2019 2:25 PM [facility] Creatinine 0.7 0.6 - 1.2 mg/dL 10/22/2019 2:25 PM [facility] Sodium 140 136 - 145 mmol/L 10/22/2019 2:25 PM [facility] Potassium 4.1 3.5 - 4.5 mmol/L 10/22/2019 2:25 PM [facility] Chloride 103 98 - 107 mmol/L 10/22/2019 2:25 PM [facility] CO2 28 22 - 29 mmol/L 10/22/2019 2:25 PM [facility] Glucose 88 70 - 115 mg/dL 10/22/2019 2:25 PM [facility] Calcium 9.8 8.4 - 10.2 mg/dL 10/22/2019 2:25 PM [facility] Protein Total 8.5(H) 6.0 - 8.3 g/dL 10/22/2019 2:25 PM [facility] Albumin 4.1 3.4 - 5.0 g/dL 10/22/2019 2:25 PM [facility] Bilirubin Total 0.5 0.2 - 1.2 mg/dL 10/22/2019 2:25 PM [facility] Alkaline Phosphatase 98 40 - 150 Units/L 10/22/2019 2:25 PM [facility] ALT 24 0 - 55 Units/L 10/22/2019 2:25 PM [facility] AST 22 5 - 34 Units/L 10/22/2019 2:25 PM [facility] Anion Gap 13 8 - 18 10/22/2019 2:25 PM [facility] BUN/Creatinine Ratio 11 7 - 23 10/22/2019 2:25 PM [facility] Osmolality Calculated 288 270 - 300 mOsm/kg 10/22/2019 2:25 PM [facility] Albumin/Globulin Ratio 0.9(L) 1.1 - 2.3 10/22/2019 2:25 PM [facility] eGFR >60 >60 mL/min/1.7 3 m2 10/22/2019 2:25 PM [facility] Blood BLOOD SPECIMEN / Unknown Lab Venipuncture / Unknown 10/22/2019 12:09 PM [facility] 10/22/2019 1:07 PM [facility] Sammy Carrero MD LAB - CHEMISTRY ORDE [facility] Organization Address City/State/[facility] Co de Phone Number [address] [phone] * (ABNORMAL) CBC WITH DIFFERENTIAL (10/22/2019 12:09 PM [facility]) WBC 3.5 3.5 - 10.5 10? 3 /uL 10/22/2019 1:16 PM [facility] RBC 5.02(H) 3.90 - 5.00 10? 6 /uL 10/22/2019 1:16 PM [facility] Hemoglobin 13.5 12.0 - 15.5 g/dL 10/22/2019 1:16 PM [facility] Hematocrit 43.5 35.0 - 45.0 % 10/22/2019 1:16 PM [facility] MCV 86.7 81.0 - 97.0 fL 10/22/2019 1:16 PM [facility] MCH 26.9(L) 28.0 - 34.0 pg 10/22/2019 1:16 PM [facility] MCHC 31.0(L) 32.0 - 36.0 g/dL 10/22/2019 1:16 PM [facility] Platelet Count 188 150 - 400 10? 3 /uL 10/22/2019 1:16 PM [facility] RDW-SD 44.0 36.0 - 50.0 fL 10/22/2019 1:16 PM [facility] RDW-CV 13.8 11.2 - 14.8 % 10/22/2019 1:16 PM [facility] MPV 10.3 9.3 - 12.8 fL 10/22/2019 1:16 PM [facility] nRBC Absolute 0.00 0 10? 3 /uL 10/22/2019 1:16 PM [facility] nRBC Auto 0.0 0 /100 WBC 10/22/2019 1:16 PM [facility] Neutrophils % 49.1 35.0 - 70.0 % 10/22/2019 1:16 PM [facility] Lymphocytes % 27.0 19.7 - 55.1 % 10/22/2019 1:16 PM [facility] Monocytes % 15.8(H) 3.0 - 15.0 % 10/22/2019 1:16 PM [facility] Eosinophils % 7.2(H) 0.0 - 6.0 % 10/22/2019 1:16 PM [facility] Basophil % 0.6 0.0 - 1.5 % 10/22/2019 1:16 PM [facility] Neutrophils Absolute 1.7 1.6 - 7.0 10? 3 /uL 10/22/2019 1:16 PM [facility] Lymphocyte Absolute 0.9 0.8 - 2.9 10? 3 /uL 10/22/2019 1:16 PM [facility] Monocytes Absolute 0.55 0.14 - 0.66 10? 3 /uL 10/22/2019 1:16 PM [facility] Eosinophils Absolute 0.25 0.00 - 0.45 10? 3 /uL 10/22/2019 1:16 PM [facility] Basophils Absolute 0.02 0.00 - 0.06 10? 3 /uL 10/22/2019 1:16 PM [facility] Immature Granulocytes % 0.3 0.0 - 1.0 % 10/22/2019 1:16 PM [facility] [employer] [facility] Blood BLOOD SPECIMEN / Unknown Lab Venipuncture / Unknown 10/22/2019 12:09 PM [facility] 10/22/2019 1:07 PM [facility] Sammy Carrero MD LAB - HEMATOLOGY ORD ERABLES Performing Organization Address City/State/[facility] Co de Phone Number [facility] [address] [phone] documented in this encounter Visit Diagnoses Diagnosis Spondylolisthesis at L4-L5 level Spinal stenosis of lumbar region with neurogenic claudication Spinal stenosis, lumbar region, with neurogenic claudication Lumbosacral radiculopathy at L5 Thoracic or lumbosacral neuritis or radiculitis, unspecified documented in this encounter Care Teams Louver Door Assembler Relationship Specialty Start Date End Date Esperanza Ho MD [address] [facility] [address] [place] [address] PCP - General 04/10/19 documented as of this encounter
--- OUTSIDE RECORDS SUMMARY | 2024-08-26 07:04 | XMS_ITS | Encounter Summary ---
Author Organization [facility] Address [address] [place] [address] Care Team Providers Care Sports Centre Manager Name Role Phone Esperanza Ho MD Primary Care Provider + Reason for Visit * Reason Comments Surgical Follow-up Encounter Details Date Type Department Care Team (Late st Contact Info) Description 01/08/2020 1:45 PM CDT Office Visit [facility] - Orthopedics [address] [facility] [place] [address] Sammy Carrero MD [address] [facility] [address] [place] [address] Aftercare following surgery (Primary Dx); S/P lumbar spinal fusion; Hoarse voice quality Social History Tobacco Use Types Packs/Day Years [...] Sign Reading Time Taken Comments Blood Pressure 130/89 01/08/2020 1:45 PM CDT Pulse 94 01/08/2020 1:45 PM CDT Temperature 36.7 ??C (98.1 ??F) 01/08/2020 1:45 PM CD T Respiratory Rate 20 01/08/2020 1:45 PM CDT Oxygen Saturation 100% 01/08/2020 1:45 PM CDT Inhaled Oxygen Concentration - - Weight 87.5 kg (193 lb) 01/08/2020 1:45 PM CDT Height 167.6 cm (5' 6 ) 01/08/2020 1:45 PM CDT Body Mass Index 31.15 01/08/2020 1:45 PM CDT documented in this encounter Functional [...] this encounter Patient Instructions * Patient Instructions* Trevor Thornton MD - 01/08/2020 2:07 PM CDT Saray Whitten 01/08/2020 Follow up: 3 months Please contact our clinic call center at if you need to schedule or change an appointment. For medical emergencies please call 911. Please contact Giacomo Hayes RN at or through [employer] if you have any further questions or concerns. [facility] Orthopaedic office contact information: [facility] ([facility]) [address] [place] [address] [place] [address], [facility] [address], [place] [address] January 08, 2020 To Whom It May Concern: Please use this letter to document that Saray Whitten, : 1960, was in to see Sammy Carrero MD on 01/08/2020. Thank you. Sincerely, Sammy Carrero MD [facility] documented in this encounter Progress Notes * Trevor Thornton MD - 01/08/2020 1:47 PM CDT [facility] Orthopedic Spine Surgery Clinic Note Saray Whitten, 59 year old, female : 1960 CSN: [id number] Primary Care Physician: Esperanza Ho MD Diagnosis/Procedures 1.) Lumbar spondylolisthesis, Left lateral recess lumbar stenosis with resultant lumbar radiculopathy, L4-5 and L5-S1 s/p ALIF L4-S1, PISF L4-S1 Date of Surgery: 11/02/2019 Time Since injury/surgery: 2.5 months HPI Date of this clinic visit: 01/08/2020 This is a 59 year old female with history of lumbar spondylolisthesis, lumbar stenosis with radiculopathy status post surgery above who is here for a follow- up clinic appointment. Pain is located in her low carlton and is described as achy without radiation. Patient does not have pain at night. Patientis able to walk/stand around the house without pain. Ambulates with walker. For pain control the patient has used nothing recently with relief. Exertion makes it worse and rest makes it better. They have participated in PT in the past. They have not received steroid injections in the past. Denies new numbness/paresthesias or bowel/bladder retention or incontinence. ROS otherwise negative. Smoking status: None Objective BP 130/89 Pulse 94 Temp 98.1 ??F (36.7 ??C) Resp 20 Ht 1.676 m (5' 6 ) Wt 87.5 kg (193 lb) SpO2 100% BMI 31.15 kg/m2 PMHx Past Medical History: Diagnosis Date ??? Sarcoidosis 1995 no problems ??? SOB (shortness of breath) limited walking due to back PSHx Past Surgical History: Procedure Laterality Date ??? COLONOSCOPY ??? LUMBAR SPINE FUSION N/A 11/02/2019 N/A; L4/5 L5/S1 ANTERIOR LUMBAR INTERBODY FUSION ??? LUMBAR SPINE FUSION N/A 11/02/2019 N/A; L4-S1 POSTERIOR INTRUMENTED SPINAL FUSION, LEFT L5 NERVE DECOMPRESSION ??? OTHER SURGERY left breast tumor removed [...] tablet ??? DULoxetine (CYMBALTA) 30 MG capsule ??? oxyCODONE-acetaminophen (PERCOCET) 10-325 MG tablet ??? polyethylene glycol 3350 (MIRALAX) powder ??? senna-docusate (SENOKOT-S) 8.6-50 MG tablet No current facility-administered medications for this visit. Review of Systems - Bowel/Bladder incontinence or retention: Denies - Numbness/paresthesias to extremities: Denies - Hand clumsiness/loss of fine motor skills: Denies - Balance problems: Denies Review of all other systems was negative. Physical Exam General appearance: awake, cooperative, NAD Back: -Tenderness to palpation: mild - well-healed surgical scar Abdomen: - well-healed surgical scar Posture - Erect posture with no cervical thrust, list, or torticollis noted Bilateral Lower Extremity: - Motor: Hip Flexion (L2/3) 5/5 Knee Flexion 5/5 Knee Extension (L4) 5/5 Ankle Dorsiflexion (L5) 5/5 Great Toe Extension (L5) 5/5 Ankle Plantarflexion (S1) 5/5 - Sensation: Intact to light touch distally - Clonus: not assessed - Reflexes: Knee Jerk: Normal Achilles: Normal Babinski: Deferred Gait - Walks with walker and cautious mildly shuffling gait Imaging - XR Lumbar spine reviewed. Demonstrates intact hardware without evidence of failure or loosening. Pelvic incidence of 57 degree. Assessment/Plan: Saray Whitten is a 59 year old female with Lumbar spondylolisthesis, Left lateral recess lumbar stenosis with resultant lumbar radiculopathy - s/p L4-5 and L5-S1 s/p ALIF L4-S1, PISF L4-S1 - Patient was counseled to the nature of their diagnosis and demonstrated understanding - Lifting/Activity restrictions: none - Follow up in 3 months - Follow up Imaging: XR lumbar spine Trevor Thornton MD 01/08/2020 documented in this encounter Plan of Treatment Not on file documented as of this encounter Visit Diagnoses Diagnosis Aftercare following surgery- Primary Encounter for other specified aftercare S/P lumbar spinal fusion Arthrodesis status Hoarse voice quality Dysphonia documented in this encounter Care Teams Sports Centre Manager Relationship Specialty Start Date End Date Esperanza Ho MD [address] [place] [id number] PCP - General 04/10/19 documented as of this encounter
--- OUTSIDE RECORDS SUMMARY | 2024-08-26 07:04 | XMS_ITS | Encounter Summary ---
Author Organization [facility] Address [address] [place] [address] Care Team Providers Care Qa Developer Name Role Phone Esperanza Ho MD Primary Care Provider + Reason for Visit * Reason Onset Date Comments Future Appointment 02/11/2020 Encounter Details Date Type Department Care Team (Late st Contact Info) Description 02/11/2020 Telephone [facility] [address] [place] [address] Nissa Holliday Future Appointment Social [...] encounter Progress Notes * Nissa Holliday - 02/11/2020 10:40 AM CDT Therapy scheduling message left with callback number-1ST ATTEMPT documented in this encounter Plan of Treatment Not on file documented as of this encounter Visit Diagnoses Not on filedocumented in this encounter Care Teams Qa Developer Relationship Specialty Start Date End Date Esperanza Ho MD [address] [place] [address] PCP - General 04/10/19 documented as of this encounter
--- OUTSIDE RECORDS SUMMARY | 2024-08-26 07:04 | XMS_ITS | Encounter Summary ---
Author Organization [facility] Address [address] [facility] [facility] [place] [address] Care Team Providers Care Cap Coverer Name Role Phone Esperanza Ho MD Primary Care Provider + Encounter Details Date Type Department Care Team (Latest Contact Info) Description 07/23/2019 Orders Only [facility] - Orthopedics [address] [facility] [place] [id number] Bernard Hayes, RN [address] [place] [address] Spondylolisthesis at L4-L5 level; Spinal stenosis of lumbar region with neurogenic claudication Social History Tobacco Use Types Packs/Day Years [...] Spinal stenosis, lumbar region, with neurogenic claudication documented in this encounter Care Teams Cap Coverer Relationship Specialty Start Date End Date Esperanza Ho MD [address] [place] [address] PCP - General 04/10/19 documented as of this encounter
--- OUTSIDE RECORDS SUMMARY | 2024-08-26 07:04 | XMS_ITS | Encounter Summary ---
Author Organization [facility] Address [address] [place] [address] Care Team Providers Care Solar System Designer Name Role Phone Esperanza Ho MD Primary Care Provider + Encounter Details Date Type Department Care Team (Late st Contact Info) Description 04/15/2020 1:28 PM CDT - 04/15/2020 11:59 PM CDT Hospital Encounter [facility] DIAGNOSTIC RAD [facility] 1[address] [facility] [facility] [place] [address] Sammy Carrero MD [address] [facility] [address] [place] [phone] Discharge Disposition: Home or Self Care [...] XR LUMBAR SPINE 2 OR 3VW Routine 04/15/2020 1:31 PM CDT Back pain, unspecified back location, unspecified back pain laterality, unspecified chronicity documented in this encounter Results * XR LUMBAR SPINE 2 OR 3VW (04/15/2020 1:31 PM CDT) Anatomical Region Laterality Modality Spine Radiographic Mayda ging 04/15/2020 2:01 PM CDT Impressions 04/15/2020 2:23 PM CDT FINDINGS/IMPRESSION: Instrumented spinal fusion is again demonstrated at L4-S1 with posterior rods, screws, and interbody devices. The instrumentation is intact. The osseous alignment is unchanged. No fracture or subluxation is seen. The upper lumbar disc spaces are maintained. Dictated by Stew Messer MD (vice president digital strategist). Dr. WALLY Gordon MD have personally reviewed and interpreted this examination/study. This report was electronically signed by WALLY GRIDER MD ??on 04/15/2020 2:23 PM . Narrative 04/15/2020 2:23 PM CDT EXAMINATION: XR LUMBAR SPINE 2VW HISTORY: M54.9: Back pain, unspecified back location, unspecified back pain laterality, unspecified chronicity COMPARISON: 01/08/2020 Procedure Note Wally Grider MD - 04/15/2020 EXAMINATION: XR LUMBAR SPINE 2VW HISTORY: M54.9: Back pain, unspecified back location, unspecified back pain laterality, unspecified chronicity COMPARISON: 01/08/2020 FINDINGS/IMPRESSION: Instrumented spinal fusion is again demonstrated at L4-S1 with posterior rods, screws, and interbody devices. The instrumentation is intact. The osseous alignment is unchanged. No fracture or subluxation is seen. The upper lumbar disc spaces are maintained. Dictated by Stew Messer MD (vice president digital strategist). I, Dr. WALLY GRIDER MD have personally reviewed and interpreted this examination/study. This report was electronically signed by WALLY GRIDER MD on04/15/2020 2:23 PM . Sammy Carrero MD DIAGNOSTIC IMAGING O RDERABLES documented in this encounter Visit Diagnoses Diagnosis Back pain, unspecified back location, unspecified back pain laterality, unspecified chronicity documented in this encounter Care Teams Solar System Designer Relationship Specialty Start Date End Date Esperanza Ho MD [address] [place] [address] PCP - General 04/10/19 documented as of this encounter
--- OUTSIDE RECORDS SUMMARY | 2024-08-26 07:04 | XMS_ITS | Encounter Summary ---
Author Organization [facility] Address [address] [place] [address] Care Team Providers Care Curbstone Setter Name Role Phone Esperanza Ho MD Primary Care Provider + Encounter Details Date Type Department Care Team (Late st Contact Info) Description 01/03/2020 Orders Only [facility] - Orthopedics [address] [facility] [place] [address] Sammy Carrero MD [address] [facility] [address] [place] [address] Low back pain, unspecified back pain laterality, [...] * XR LUMBAR SPINE 2 OR 3VW (01/08/2020 1:39 PM CDT) Anatomical Region Laterality Modality Spine Radiographic Mayda ging 01/08/2020 3:32 PM CDT Impressions 01/08/2020 3:33 PM CDT IMPRESSION: Instrumented spinal fusion at L4-S1, unchanged. This report was electronically signed by WALLY GRIDER MD ??on 01/08/2020 3:33 PM . Narrative 01/08/2020 3:33 PM CDT Exam: ??XR LUMBAR SPINE 2 VW History: ??M54.5: Low back pain, unspecified back pain laterality, unspecified chronicity, unspecified whether sciatica present Comparison: 11/07/2019. Findings: Instrumented spinal fusion is again demonstrated at L4-S1 with posterior rods, screws, and interbody devices. The instrumentation is intact. The osseous alignment is unchanged. No fracture or subluxation is seen. The upper lumbar disc spaces are maintained. Procedure Note Wally Grider MD - 01/08/2020 Exam: XR LUMBAR SPINE 2 VW History: M54.5: Low back pain, unspecified back pain laterality, unspecified chronicity, unspecified whether sciatica present Comparison: 11/07/2019. Findings: Instrumented spinal fusion is again demonstrated at L4-S1 with posterior rods, screws, and interbody devices. The instrumentation is intact. The osseous alignment is unchanged. No fracture or subluxation is seen. The upper lumbar disc spaces are maintained. IMPRESSION: Instrumented spinal fusion at L4-S1, unchanged. This report was electronically signed by WALLY GRIDER MD on01/08/2020 3:33 PM . Sammy Carrero MD DIAGNOSTIC IMAGING O RDERABLES documented in this encounter Visit Diagnoses Diagnosis Low back pain, unspecified back pain laterality, unspecified chronicity, unspecified whether sciatica present- Primary Low back pain, unspecified back pain laterality, unspecified chronicity, unspecified whether sciatica present documented in this encounter Care Teams Curbstone Setter Relationship Specialty Start Date End Date Esperanza Ho MD [address] [facility] [address] [place] [address] PCP - General 04/10/19 documented as of this encounter
--- OUTSIDE RECORDS SUMMARY | 2024-08-26 07:04 | XMS_ITS | Encounter Summary ---
Author Organization [facility] Address [address] [facility] [place] [address] Care Team Providers Care Welfare Eligibility Interviewer Name Role Phone Esperanza Ho MD Primary Care Provider + Reason for Visit * Reason Comments Refill Request Encounter Details Date Type Department Care Team (Late st Contact Info) Description 12/14/2019 Refill [facility] - [facility] [address] [facility] [place] [address] Sammy Carrero MD [address] [address] Refill Request Social History Tobacco Use Types Packs/Day Years [...] on filedocumented in this encounter Care Teams Welfare Eligibility Interviewer Relationship Specialty Start Date End Date Esperanza Ho MD [address] [facility] [address] [place] [address] PCP - General 04/10/19 documented as of this encounter
--- OUTSIDE RECORDS SUMMARY | 2024-08-26 07:04 | XMS_ITS | Encounter Summary ---
Author Organization [facility] Address [address] [place] [address] Care Team Providers Care Dental Nurse Name Role Phone Esperanza Ho MD Primary Care Provider + Reason for Visit * Reason Onset Date Comments MEDICATION REFILL 11/16/2019 Encounter Details Date Type Department Care Team (Late st Contact Info) Description 11/16/2019 Refill [facility] [address] [facility] [place] [address] Sammy Carrero MD [address] [facility] [address] [place] [address] MEDICATION REFILL Social History Tobacco [...] Telephone Encounter - Bernard Hayes, RN - 11/16/2019 11:57 AM CDT Pt is status post L4-S1 ALIF, L4-S1 PISF by Dr. Carrero on 11/02/2019. Pt reports adequate pain control at this time. Pt reports she has been taking 2 5/325 percocets every 4 hours as prescribed. Pt was provided #[id number] at discharge on 11/12/2019 (3.5 day supply). Pt reports some constipation but was not taking her laxative. Pt has since restarted. We discussed staying hydrated and options if her constipation does not improve with current laxatives. Pt will call for continued problems. Last Fill 11/12/2019 1st post operative visit is scheduled on 11/27/2019. Rx changed to 1-10/325 percocet every 4 hours as needed, 7 day supply. Orders placed and forwarded to Dr. Carrero for review. documented in this encounter Plan of Treatment Not on file documented as of this encounter Visit Diagnoses Not on filedocumented in this encounter Care Teams Dental Nurse Relationship Specialty Start Date End Date Esperanza Ho MD [address] [place] [address] PCP - General 04/10/19 documented as of this encounter
--- OUTSIDE RECORDS SUMMARY | 2024-08-26 07:04 | XMS_ITS | Encounter Summary ---
Author Organization [facility] Address [address] [place] [address] Care Team Providers Care Senior Estimator Name Role Phone Esperanza Ho MD Primary Care Provider + Encounter Details Date Type Department Care Team (Late st Contact Info) Description 01/08/2020 1:34 PM CDT - 01/08/2020 11:59 PM CDT Hospital Encounter [facility] DIAGNOSTIC RAD [facility] [address] [facility] [facility] [place] [address] Sammy Carrero MD [address] [facility] [address] [place] [phone] Discharge Disposition: Home or Self Care [...] Take 30 mg by mouth once daily polyethylene glycol 3350 (MIRALAX) powder TAKE 17 GRAMS BY MOUTH ONCE DAILY 238 g 12/17/2019 senna-docusate (SENOKOT-S) 8.6-50 MG tablet Take 1 tablet by mouth 2 times daily 60 tablet 11/23/2019 oxyCODONE-acetaminophen (PERCOCET) 10-325 MG tablet Take 1 tablet by mouth every 4 hours as needed for Pain 42 tablet 12/31/2019 01/09/2020 documented as of this encounter Plan of Treatment Not on file documented as of this encounter Procedures Procedure Name Priority Date/Time Associated Diagnosis Comments XR LUMBAR SPINE 2 OR 3VW Routine 01/08/2020 1:39 PM CDT Low back pain, unspecified back [...] present documented in this encounter Care Teams Senior Estimator Relationship Specialty Start Date End Date Esperanza Ho MD [address] [place] [address] PCP - General 04/10/19 documented as of this encounter
--- OUTSIDE RECORDS SUMMARY | 2024-08-26 07:04 | XMS_ITS | Encounter Summary ---
Author Organization [facility] Address [address] [place] [address] Care Team Providers Care Java Application Developer Name Role Phone Esperanza Ho MD Primary Care Provider + Reason for Visit * Auth/Cert Specialty Diagnoses / Procedures Referred By Amy amaro Referred To Contact Diagnoses Diagnosis unknown LUMBAR STENOSIS, LUMBAR SPONDYLOLISTHESIS, LUMBAR RADICULOPATHY Procedures FUSION ANTERIOR LUMBAR INTERBODY (ALIF) FUSION TRANSFORAMINAL LUMBAR INTERBODY (TLIF) Referral ID Status Reason Start Date Expiration Date Visits Re quested Visits Authorized [id number] 1 1 Encounter Details Date Type Department Care Team (Late Contact Info) Description 11/02/2019 7:25 AM BULL WHEEL WORKER Anesthesia Event [facility] [address] [place] [id number] Mat Irizarry MD [address] [place] [address] Manuelito Young MD [address] [place] [address] Anesthesia Record Procedure Summary Procedure Name Responsible [...] Room 1621 ANPTO2 1625 An Stop Meds Name Total midazolam 2 mg/2mL injection 2 mg fentaNYL 100 mcg/2ml injection 200 mcg lidocaine PF 2% 100 mg lidocaine PF 2% 100 mg propofol 200mg/20mL injection 160 mg rocuronium 50 mg/5 mL injection 290 mg phenylephrine 100 mcg/mL injection 300 m cg ondansetron 4mg/2mL injection 4 mg hydromorphone 2 mg/10mL prefilled syring e 1 mg sugammadex 200 mg/2mL injection 200 mg ceFAZolin 2,000 mg IVPB 6 g ketamine (KETALAR) 30 mg/3 mL injection 60 mg ketamine (KETALAR) 500 mg in 0.9% NaCl 5 0 mL infusion 294.22 mg calcium chloride 10% injection 1 g LR (Lactated ringers) 1,000 mL Isolyte-S infusion 2,300 mL albumin 5% 1,000 mL * Agents Name Exp. Sevoflurane Insp. Sevoflurane * Blood No blood administrations on file. [...] Tolerance: General Anesthesia 11/02/19 0735 by Navneet Aguilar MD 11/06/19 2307 by Annmarie Quach, COLETTE Urethral Catheter 11/02/19; 0745; Mariana Harvey RN; Double-lumen / 2-Way, Temperature probe; No; 16; 10 mL; General Anesthesia; 11/05/19; 0600; Per protocol; Silvana Miller 11/02/19 0745 by Aneta Harvey RN 11/05/19 0600 by Zahira Avila RN Arterial Line Date: 11/02/19; Time : 0758; [...] 1503; Dr. Carrero; 1; Round; Accordian; 10 Turkmen; BARD; [id number]; [id number]; Lower; Back; General Anesthesia; 11/05/19 11/02/19 1503 by Christine Stein RN 11/05/19 0000 by Annmarie Quach RN Procedural Site (Incision) 11/02/19; 1625; Back; Exofin 4x4s, Ioban ; 11/13/19; 02011/02/19 1625 by Christine Stein RN 11/13/19 0206 by Bee Resilient, Auto Release documented in this encounter Social [...] on file documented as of this encounter Progress Notes * Mat Irizarry MD - 11/02/2019 7:42 PM CST ANESTHESIA POSTOP EVALUATION NOTE Procedure: L4/5 L5/S1 ANTERIOR LUMBAR INTERBODY FUSION (N/A Spine Lumbar) L4-S1 POSTERIOR INTRUMENTED SPINAL FUSION, LEFT L5 NERVE DECOMPRESSION (N/A Back) Saray Whitten is a 59 year old female Patient Vitals for the past 6 hrs: BP Temp Pulse Resp SpO2 Pain Rating Score #1 Pain Scale/Observation 11/02/19 1620 168/82 -- -- -- -- -- -- 11/02/19 1622 -- 99.3 ??F (37.4 ??C) -- -- -- -- -- 11/02/19 1625 169/82 -- 98 17 97 % -- Resting with eyes closed 11/02/19 1630 170/82 -- 93 16 100 % -- -- 11/02/19 1635 166/79 -- 88 18 100 % -- Resting with eyes closed 11/02/19 1640 163/90 -- 87 17 100 % -- Resting with eyes closed 11/02/19 1645 164/85 -- 102 17 100 % -- -- 11/02/19 1650 170/80 -- 105 18 100 % -- Resting with eyes closed 11/02/19 1655 164/82 -- 106 21 98 % -- -- 11/02/19 1700 159/83 -- 95 20 96 % -- -- 11/02/19 1705 163/82 -- 98 18 96 % -- -- 11/02/19 1710 157/78 -- 96 19 94 % -- -- 11/02/19 1715 145/73 -- 92 18 93 % -- -- 11/02/19 1720 157/73 -- 94 16 93 % -- -- 11/02/19 1723 -- -- -- -- -- 7 N 11/02/19 1725 153/75 -- 94 (!) 8 (!) 89 % -- -- 11/02/19 1730 151/77 -- 98 10 98 % -- -- 11/02/19 1731 -- -- -- -- -- 9 -- 11/02/19 1735 144/71 -- 99 12 96 % -- -- 11/02/19 1740 131/67 -- 90 9 96 % -- Resting with eyes closed 11/02/19 1745 126/67 -- 92 11 98 % -- Resting with eyes closed 11/02/19 1750 -- -- 94 11 97 % -- Resting with eyes closed 11/02/19 1808 -- -- -- -- -- -- Resting with eyes closed 11/02/19 1837 -- -- -- -- -- 10 N Anesthesia Type: general ETT Pre-op Diagnosis Codes: * Diagnosis unknown [R69] Mental Status: awake, alert, oriented, sufficiently recovered from acute administration of anesthesia to participate in the evaluation, neurologic status has returned to preoperative level and neurologic status has returned to expected level of consciousness Neuro Status: No numbness, tingling or visual disturbances Respiratory Function: natural Cardiac Function: stable Postop Pain: acceptable to the patient Postop Hydration: adequate Postop Nausea: none Assessment: no apparent anesthetic complications Non Reportable Improvement Section (otherwise blank): WHEEL WORKER * Rc Robb MD - 11/02/2019 5:39 PM CST ANESTHESIA POSTOP EVALUATION NOTE Procedure: L4/5 L5/S1 ANTERIOR LUMBAR INTERBODY FUSION (N/A Spine Lumbar) L4-S1 POSTERIOR INTRUMENTED SPINAL FUSION, LEFT L5 NERVE DECOMPRESSION (N/A Back) Saray Whitten is a 59 year old female Patient Vitals for the past 6 hrs: BP Temp Pulse Resp SpO2 Pain Rating Score #1 Pain Scale/Observation 11/02/19 1620 168/82 -- -- -- -- -- -- 11/02/19 1622 -- 99.3 ??F (37.4 ??C) -- -- -- -- -- 11/02/19 1625 169/82 -- 98 17 97 % -- Resting with eyes closed 11/02/19 1630 170/82 -- 93 16 100 % -- -- 11/02/19 1635 166/79 -- 88 18 100 % -- Resting with eyes closed 11/02/19 1640 163/90 -- 87 17 100 % -- Resting with eyes closed 11/02/19 1645 164/85 -- 102 17 100 % -- -- 11/02/19 1650 170/80 -- 105 18 100 % -- Resting with eyes closed 11/02/19 1655 164/82 -- 106 21 98 % -- -- 11/02/19 1700 159/83 -- 95 20 96 % -- -- 11/02/19 1705 163/82 -- 98 18 96 % -- -- 11/02/19 1710 157/78 -- 96 19 94 % -- -- 11/02/19 1715 145/73 -- 92 18 93 % -- -- 11/02/19 1720 157/73 -- 94 16 93 % -- -- 11/02/19 1723 -- -- -- -- -- 7 N 11/02/19 1725 153/75 -- 94 (!) 8 (!) 89 % -- -- 11/02/191729 -- -- 98 10 98 % -- -- 11/02/191730 -- -- -- -- -- 9 -- Anesthesia Type: general ETT Pre-op Diagnosis Codes: * Diagnosis unknown [R69] Mental Status: awake Neuro Status: No numbness, tingling or visual disturbances Respiratory Function: natural Cardiac Function: stable Postop Pain: acceptable to the patient Postop Hydration: adequate Postop Nausea: none Assessment: no apparent anesthetic complications Patient Disposition: Release from Anesthesia Care Non Reportable Improvement Section (otherwise blank): WHEEL WORKER * Mat Irizarry MD - 10/22/2019 11:39 AM CST ANESTHESIA PREOPERATIVE EVALUATION NOTE Procedure: L4/5 L5/S1 ANTERIOR LUMBAR INTERBODY FUSION (N/A ) L4-S1 POSTERIOR INTRUMENTED SPINAL FUSION (N/A Back) Vitals: Patient Vitals for the past 6 hrs: BP Pulse Resp SpO2 10/22/19 1111 145/92 87 16 100 % ANESTHESIA PRE-EVALUATION NOTE History of Present Illness: Ms. Saray Whitten is a 59 year old female w/ sarcoidosis presenting for L/4 L5/S1 abterior lumbar interbody fusion with L4-S1 posterior instrumented spinal fusion. Previous Airway Management: No Hx Available Physical Exam: Orientation X3 Airway/Mallampati Score: II Mouth Opening Distance: 3.5 fingerwidths Neck ROM: full TM Distance: > 3 FB Teeth: normal Heart: regular rate rhythm Lungs: normal Abdomen Exam: obese and soft Physical Exam Additional Comments: 04/04/18 Stress Test 1.? Clinically negative. 2.? Electrocardiographically negative treadmill test for ischemia. 3.? Adequate exercise capacity.? 4.? Blood pressure response was normal.? 5.? Arechiga Treadmill Score is 1, which indicates moderate risk. Review of Systems: History of anesthetic complications: No Malignant Hyperthermia: No GERD: No Poor Exercise Tolerance: No Recent Chest Pain: No Shortness of Breath: No Diagnostic Tests: ECG(s) reviewed: Yes Stress Test(s) reviewed: Yes. Lab(s) reviewed: Yes. ANESTHESIA PLAN ASA Score: 2 NPO Status: No solids since midnight Anesthesia Plan: general ETT Planned Induction: intravenous Planned Adjuncts: art line Planned Postop Destination: PACU Anesthetic plan was discussed with: patient Anesthetic Plan discussion was: Consented Use of blood products were discussed with: patient Use of blood product discussion was: Consented The patient's procedural Anesthetic Plan was discussed with the resident. Overall additional findings/comments: Anesthetic plan discussed with patient and/or family. Risks discussed. All questions answered. Patient agrees to proceed. BMI, Height, Weight Tobacco History Estimated body mass index is 33.41 kg/m?? as calculated from the following: Height as of this encounter: 1.676 m (5' 6 ). Weight as of this encounter: 93.9 kg (207 lb). Social History Tobacco Use Smoking Status Never Smoker Smokeless Tobacco Never Used Alcohol History Drug History Social History Substance and Sexual Activity Alcohol Use None Social History Substance and Sexual Activity Drug Use Not on file Outpatient Medications: Inpatient Medications: Outpatient Medications Marked as Taking for the 10/22/19 encounter (Hospital Encounter) with [facility] Medication Sig Last Dose ??? amitriptyline Take 25 mg by mouth at bedtime Taking ??? DULoxetine Take 30 mg by mouth once daily Taking No current facility-administered medications for this encounter. Allergies: No Known Allergies Relevant Problems No relevant active problems Problem List: Patient Active Problem List Diagnosis Date Noted ??? Lumbosacral radiculopathy at L5 05/19/2019 Priority: Not Prioritized ??? Spondylolisthesis at L4-L5 level 04/13/2019 Priority: Not Prioritized Medical History: No past medical history on file. Surgical History: No past surgical history on file. Lab Results: Invalid input(s): PREGTESTUR PAT Evaluation summary: I. Perioperative Cardiac Risk Index Stratification based on 2014 ACC/AHA Guidelines Perioperative risk of a Major Adverse Cardiac Event (MACE). Add one point (0-6) for each positive RCRI (Revised Cardiac Risk Index) Is the surgery high-risk? yes - spine Intraperitoneal Intrathoracic Major vascular Neurosurgical spine or craniotomy History of ischemic heart disease? no Recent ID with 60 days = very high risk of MACE, requires cardiac consultation History of ID > 60 days History of positive stress test Current chest pain considered due to myocardial ischemia Use of nitrate therapy ECG with pathologic Q waves History of congestive heart failure? no Pulmonary edema, bilateral rales or S3 gallop Paroxysmal nocturnal dyspnea CXR showing pulmonary vascular congestion History of cerebrovascular disease? no Prior TIA or stroke Insulin-dependent Diabetes? no Preoperative creatinine > 2 mg/dl? no RCRI correlation with MACE (www.mdcalc.com/mmvociy-zyjqzcy-nrhg-ivync-wel-qykhyylgn-risk, originally validated by Ginna Guy. Circulation. 1999;100:9425-9060) 0 Points - 0.4% risk 1 Point - 0.9% risk 2 Points - 6.6% risk 3 or more Points - 11% risk This patient has 1 RCRI and the risk of MACE= 0.9 % If MACE < 1%, no further testing required. Proceed to surgery. Patient is at low risk of MACE. If MACE > 1% Elevated risk. Need to assess the patient's functional capacity. 4 METs = Can walk up a flight of steps or a hill or walk on level ground at 3 mph If > 4 METs. Proceed to surgery. If < 4 METs or unknown functional capacity then discuss with attending, as further workup may beindicated. (Source: 2014 ACC/AHA Guideline on Perioperative Cardiovascular Evaluation and Management of Patients Undergoing Noncardiac Surgery) II. Consults: Cardiology / medicine/ other risk stratification or consults requested: no (date and results): III. CIEDs (cardiovascular implantable electronic device) Patient does not have any CIEDs If yes then complete as below and place interrogation report in chart Information needed (wood club neck whipper, mode, indication for CIED, battery life, magnet function, PM dependence): Call PAT director or outboard system operator to discuss any patient with a CIED Timing of interrogation should be: Within 1 year for PM and Within 6 months for AICD (Source: 2010 The Heart Rhythm Society (HRS)/[place] Society of Anesthesiologists (ASA) Expert Consensus Statement on the Perioperative Management of Patients with Implantable Defibrillators, Pacemakers and Arrhythmia Monitors: Facilities and Patient Management) IV. Anticoagulants Is patient receiving antiplatelet/ anticoagulant medications. no If yes then describe the periop plan / last dose / bridging, etc) V. Previous transfusions / blood products If high risk procedure or risk of blood loss > 250 ml, then order: - 1st Type and Screen in PAT AND 2nd Type and Screen for DOS OR - If patient is not seen in PAT then order a T&S for DOS (We will need an additional re-type which blood bank will automatically send to [facility]. [facility] requires a 2nd confirmatory T&S before releasing crossmatched blood) Previous blood transfusion? unknown - If patient had a previous transfusion and likelihood of surgical blood loss is >250ml or a high risk procedure, then every attempt should be made to obtain a T&S in PAT, otherwise patient should be instructed to arrive early or not scheduled as a first start case. Please call tape controlled machine stitcher to discuss plan and document here: Patients with previous transfusions may have developed alloantibodies to donor RBC surface antigens, which may cause hemolytic or delayed hemolytic transfusion reactions upon subsequent exposure to donor PRBCs. . Most recent EKG 10/22/19 - NSR - Normal ECG EKG needed with 3 months if: (based upon 2014 ACC / AHA guidelines) ASA > 2 OR any RCRI (including high risk surgery) VII. Additional testing needed within 1 month prior to DOS (if possible, else on DOS) - CBC w/o diff if ASA >2 OR expected blood loss >250 OR previously abnormal - BMP is ASA >2 OR taking diuretics, K+ supplements, ELIZABETH-I, ARBs OR any RCRI (including high risk procedure) - for patients with DM, refer to PCP or layboy tender for BG >200 - CMP (instead of BMP) for patient with chronic liver disease or previously abnormal -PT/ PTT/ INR if recent use of anticoagulants (VKAs, DTIs, fXa-I) OR vascular procedures Additional testing needed on DOS as below: - EPOC blood glucose on DOS - EPOC whole blood K+ for patient with ESRD or poorly controlled K+ - any test above not previously available in PAT Any additional tests ordered by the surgical team: yes - CMP, CBC (specify test and date with any relevant results, ie urine cx, UDS, etc.) Summary: Saray Whitten is a 59 year old female presenting for L4/5 L5/S1 ANTERIOR LUMBAR INTERBODY FUSION (N/A ) L4-S1 POSTERIOR INTRUMENTED SPINAL FUSION (N/A Back). They have an ASA score of ASA 2 and 1 RCRI, which correlates with a MACE score of _0.9____%. They is medically optimized for this procedure. (If not, explain here:) Labs/ tests ordered for DOS: (please list here): Preoperative plan was not discussed w/ PAT attending (date and name). (please note that ALL charts must be discussed with the PAT director or designated person) PAT evaluation is complete including review of all pending consults, CIEDs, review of labs ordered in PAT. (Please note that the evaluation is NOT complete until all the above have been reviewed) ADDENDUM Labs and CXR reviewed. No concerning findings. Manuelito Young MD 10/23/2019 11:46 AM WHEEL WORKER documented in this encounter Procedure Notes * Navneet Aguilar MD - 11/02/2019 7:58 AM CSTAssociated Order(s): Peripheral IV Placement Peripheral IV Line Placement: Patient Location: OR Procedure: IV start ([id number]). Procedure Section: Skin Prep: Chloraprep. Orientation: left Location: hand Local Anesthetic Used? No Catheter Gauge: 16 Number of Attempts: 1. Procedure Tolerance: performed while patient under general anesthesia. Procedure Start Time: 11/02/2019 7:35 AM. Staff Section Anesthesia Provider: Mat Irizarry MD, Performed the procedure Provider #1: Navneet Aguilar MD. WHEEL WORKER * Navneet Aguilar MD - 11/02/2019 7:58 AM CSTAssociated Order(s): Arterial Line Placement Arterial Line Placement Procedure Note Patient Location: OR. Procedure: Arterial Line ([id number]). Procedure Section Indications: hypotension and continuous blood pressure monitoring. Consent: informed consent was obtained for the procedure. Skin Prep: Chloraprep. Location: left radial. Site Identification: palpation. Sterile Technique: small sterile fenestrated drape, sterile gloves, mask and cap. Gauge: 20. Catheter Type: Arrow. Seldinger Technique Used? Yes Number of Attempts: 1. Line Secured with: tape and Tegaderm. Procedure Tolerance: tolerated well, performed while patient under general anesthesia and no immediate complications. Events: none. Staff Section Anesthesia Provider: Navneet Aguilar MD, Performed the procedure Provider #1: Mat Irizarry MD. WHEEL WORKER * Navneet Aguilar MD - 11/02/2019 7:57 AM CSTAssociated Order(s): ETT Placement Endotracheal Tube Placement: Patient Location: OR. Intubation Event Date/Time: 11/02/2019 7:33 AM Procedure: intubation ([id number]). Procedure Section: Sedation: under general anesthesia. Indications for Airway Management: anesthesia Induction: standard IV Patient Position: sniffing and supine Mask Ventilation: easy. Blade Type: Jerry Blade Size: 3 Laryngoscopy View: grade 1 (full cords) Intubation Adjuncts: stylet Tube: endotracheal tube Placement: oral Tube type: cuff - inflated Tube Size (MM): 7 Depth of Insertion (CM): 21 Measured From: lips Cuff volume (mL): 10 Cuff Inflated With: air Number of Attempts: 1. Placement Verified By: direct visualization, bilateral breath sounds, chest auscultation and CO2 monitor Tube secured with: adhesive tape. Difficult Airway? No. Procedure Start Time: 11/02/2019 7:33 AM. Staff Section Anesthesia Provider: Navneet Aguilar MD, Performed the procedure Provider #1: Mat Irizarry MD. WHEEL WORKER documented in this encounter Miscellaneous Notes * Anesthesia Transfer of Care - Mohsen Rios DO - 11/02/2019 4:30 PM BULL WHEEL WORKER ANESTHESIA TRANSFER OF CARE NOTE Today's Date: 11/02/2019 Date of : 1960 Patient: Saray Whitten Procedure(s): L4/5 L5/S1 ANTERIOR LUMBAR INTERBODY FUSION L4-S1 POSTERIOR INTRUMENTED SPINAL FUSION, LEFT L5 NERVE DECOMPRESSION Surgeon(s): Primary: Sammy Carrero MD Resident - Assisting: Julien Bullock MD Surgeon Second: Cecilia Hannah MD Preop Diagnosis: Pre-op Diagnois: * Diagnosis unknown [R69] Pre-op Meds (From admission, onward) Start Stop Status Route Frequency Ordered 11/01/19 2100 amitriptyline (ELAVIL) tablet 25 mg Note to Pharmacy: OP sig: Take 25 mg by mouth at bedtime -- Dispensed PO AT BEDTIME 11/01/19 1459 11/01/19 1530 DULoxetine (CYMBALTA) capsule 30 mg Note to Pharmacy: OP sig: Take 30 mg by mouth once daily -- Dispensed PO DAILY 11/01/19 1459 11/02/19 0930 ketamine (KETALAR) 500 mg in 0.9% NaCl 50 mL infusion -- Dispensed IV INTRA-OP CONTINUOUS 11/02/19 0917 11/02/19 0000 lactated ringers infusion -- Dispensed IV CONTINUOUS 11/01/19 1449 Post-op Diagnosis: * Diagnosis unknown [R69] . No Known Allergies Vitals: No data found. Lines, Drains, and Airways Type Details Placement Removal Peripheral IV Date: 11/01/19; Time: 155; Orientation: Anterior, Right; Location: Forearm; Gauge: 18 Gauge 11/01/19 155 by Ivanna Godwin RN ETT Date: 11/02/19; Time: 07; Placed By: Navneet Aguilar MD; Vent: easy mask; Induction: Standard IV; Blade Type: Jerry; Blade Size: 3; Laryngoscopy View: Grade 1 (full cords); Intubation Adjuncts: Stylet; Tube: Endotracheal Tube; Placement: Oral; Tube Type: Cuffed-inflated; Tube Size(mm): 7 MM;Depth of Insertion: 21 CM; Measured From: lips; Attempts: 1; Cuff Infated: Air; Cuff Vol(mL): 10 mL; Verified By: Direct visualization, Bilateral breath sounds, Chest Auscultation, CO2 Monitor 11/02/19 0733 by Navneet Aguilar MD 11/02/19 1619 by Mohsen Rios DO Peripheral IV Date: 11/02/19; Time: 07; Orientation: Left; Location: Hand; Placed By: Mat Irizarry MD; Gauge: 16 Gauge; Tolerance: General Anesthesia 11/02/19 0735 by Navneet Aguilar MD Arterial Line Date: 11/02/19; Time: 0758; Placed By: Navneet Aguilar MD; Gauge: 20; Line Secured: Taped; Tolerance: Well, General Anesthesia 11/02/19 0758 by Navneet Aguilar MD Peripheral IV Date: 11/02/19; Time: 1300; Orientation: Right; Location: Hand; Placed By: Mohsen Rios DO; Length (in): 1.25 ; Gauge: 18 Gauge; Tolerance: General Anesthesia 11/02/19 1300 by Mohsen Rios DO Drain 11/02/19; 1503; Dr. Carrero; 1; Round; Accordian; 10 Turkmen; BARD; [id number]; [id number]; Lower; Back; General Anesthesia 11/02/19 1503 by Christine Stein RN Intraprocedure I/O Totals Intake I.V. 2000 mL Urine Output Urine 850 mL Anesthesia Other Output Estimated Blood Loss 500 mL Isolyte-S infusion Volume infused 2300 ml LR (Lactated ringers) Volume infused 1000 ml albumin 5% Volume infused 1000 ml Patient Transfer Location: PACU Transport Airway: spontaneous respirations and supplemental O2 Complications: None Handoff Given? Yes Checklist or Protocol - The ha handoff elements that must be included in the transfer of care checklist include: 1. Identification of patient. 2. Identification of responsible practitioner (PACU nurse or advanced practitioner). 3. Discussion of pertinent medical history. 4. Discussion of the surgical/procedure course (procedure, reason for surgery, procedure performed). 5. Intraoperative anesthetic management and issue/concerns. 6. Expectations/Plans for the early post-procedure period. 7. Opportunity for questions and acknowledgement of understanding of report from the receiving PACUteam. Mohsen Rios DO WHEEL WORKER documented in this encounter Plan of Treatment Not on file documented as of this encounter Procedures Procedure Name Priority Date/Time Associated Diagnosis Comments PERIPHERAL IV NOTE Routine 11/02/2019 7: 58 AM BULL WHEEL WORKER ARTERIAL LINE NOTE Routine 11/02/2019 7: 58 AM BULL WHEEL WORKER ENDOTRACHEAL TUBE NOTE Routine 11/02/2019 7:57 AM BULL WHEEL WORKER documented in this encounter Results * IV PLACEMENT PERFORMABLE (11/02/2019 7:58 AM BULL WHEEL WORKER) Narrative Navneet Aguilar MD - 11/02/2019 7:58 AM BULL WHEEL WORKER Navneet Aguilar MD ? 11/02/2019 ??7:58 AM Peripheral IV Line Placement: Patient Location: ??OR Procedure: IV start ([id number]). Procedure Section: ?? Skin Prep: Chloraprep. Orientation: [...] * ARTERIAL LINE PERFORMABLE (11/02/2019 7:58 AM BULL WHEEL WORKER) Narrative Navneet Aguilar MD - 11/02/2019 7:58 AM BULL WHEEL WORKER Navneet Aguilar MD ? 11/02/2019 ??7:58 AM Arterial Line Placement Procedure Note Patient Location: OR. Procedure: Arterial Line ([id number]). Procedure Section ?? Indications: hypotension and continuous [...] Irizarry MD GENERAL ANESTHESIA O RDERABLES * ETT LINE PERFORMABLE (11/02/2019 7:57 AM BULL WHEEL WORKER) Narrative Navneet Aguilar MD - 11/02/2019 7:57 AM BULL WHEEL WORKER Navneet Aguilar MD ? 11/02/2019 ??7:58 AM Endotracheal Tube Placement: ? Patient Location: OR. Intubation Event Date/Time: ??11/02/2019 7:33 AM Procedure: intubation ([id number]). Procedure Section: ?? Sedation: under general anesthesia. [...] Mat Irizarry MD GENERAL ANESTHESIA O RDERABLES documented in this encounter Visit Diagnoses Not on filedocumented in this encounter Administered Medications Inactive Administered Medications - up to 3 most recent administrations Medication Order MAR Action Action Date Dose Rate Site albumin human 5 % infusion CONTINUOUS PRN, Starting on Tue11/02/19 at 0900, Until Tue11/02/19 at 1629, Anesthesia Intra-op $ New Bag/Syringe 11/02/2019 9:45 AM BULL WHEEL WORKER $ New Bag/Syringe 11/02/2019 9:00 AM BULL WHEEL WORKER calcium chloride 10 % injection PRN, Starting on Tue11/02/19 at 1255, Until Tue11/02/19 at 1629, Anesthesia Intra-op $ Given 11/02/2019 1:12 PM BULL WHEEL WORKER 0.5 g $ Given 11/02/2019 12:55 PM BULL WHEEL WORKER 0.5 g ceFAZolin (ANCEF) 2,000 mg in 50 ml IVPB PRN, Starting on Tue11/02/19 at 0745, Until Tue11/02/19 at 1629, Anesthesia Intra-op $ Given 11/02/2019 3:44 PM BULL WHEEL WORKER 2 g $ Given 11/02/2019 11:44 AM BULL WHEEL WORKER 2 g $ Given 11/02/2019 7:45 AM BULL WHEEL WORKER 2 g fentaNYL (PF) (SUBLIMAZE) injection Intravenous, PRN, Starting on Tue11/02/19 at 0731, Until Tue11/02/19 at 1629, Anesthesia Intra-op $ Given 11/02/2019 9:07 AM BULL WHEEL WORKER 100 mcg $ Given 11/02/2019 7:31 AM BULL WHEEL WORKER 100 mcg HYDROmorphone HCl-NaCl 2-0.9 MG/10ML-% SOSY Intravenous, PRN, Starting on Tue11/02/19 at 1331, Until Tue11/02/19 at 1629, Anesthesia Intra-op $ Given 11/02/2019 2:47 PM BULL WHEEL WORKER 0.5 mg $ Given 11/02/2019 1:31 PM BULL WHEEL WORKER 0.5 mg isolyte-S pH 7.4 infusion CONTINUOUS PRN, Starting on Tue11/02/19 at 0735, Until Tue11/02/19 at 1629, Anesthesia Intra-op $ New Bag/Syringe 11/02/2019 1:49 PM BULL WHEEL WORKER $ New Bag/Syringe 11/02/2019 12:10 PM BULL WHEEL WORKER $ New Bag/Syringe 11/02/2019 7:35 AM BULL WHEEL WORKER ketamine (KETALAR) 500 mg in 0.9% NaCl 50 mL infusion 0-10 mcg/kg/min ? 94.3 kg (0-5.658 mL/hr, rounded to 0-5.66 mL/hr), Intravenous, INTRA-OP CONTINUOUS, Starting on Tue11/02/19 at 0930, Until Tue11/02/19 at 1757, Titration Parameters: Standard Parameters, Indication: Sedation, Initiate infusion at: 2 mcg/kg/min, Titrate infusion by: 1 mcg/kg/min, Titrate every: 5 minutes, To maintain a: RASS score of -3 = Moderate sedation, Notify physician if: Unachievable RASS goal despite max dose, Intra-op $ New Bag/Syringe 11/02/2019 9:55 AM BULL WHEEL WORKER 10 mcg/kg/min 5.66 mL/hr ketamine (KETALAR) injection PRN, Starting on Tue11/02/19 at 0930, Until Tue11/02/19 at 1629, Anesthesia Intra-op $ Given 11/02/2019 9:42 AM BULL WHEEL WORKER 10 mg $ Given 11/02/2019 9:30 AM BULL WHEEL WORKER 50 mg lactated ringers infusion Intravenous, CONTINUOUS PRN, Starting on Tue11/02/19 at 0725, Until Tue11/02/19 at 1629, Anesthesia Intra-op $ New Bag/Syringe 11/02/2019 7:25 AM BULL WHEEL WORKER lidocaine hcl (PF) (XYLOCAINE MPF) 2 % injection Infiltration, PRN, Starting on Tue11/02/19 at 0731, Until Tue11/02/19 at 1629, Anesthesia Intra-op $ Given 11/02/2019 7:31 AM BULL WHEEL WORKER 100 mg lidocaine hcl (PF) (XYLOCAINE MPF) 2 % injection PRN, Starting on Tue11/02/19 at 0930, Until Tue11/02/19 at 1629, Anesthesia Intra-op $ Given 11/02/2019 9:30 AM BULL WHEEL WORKER 100 mg midazolam (VERSED) injection Intravenous, PRN, Starting on Tue11/02/19 at 0725, Until Tue11/02/19 at 1629, Anesthesia Intra-op $ Given 11/02/2019 7:25 AM BULL WHEEL WORKER 2 mg Ondansetron HCl (ZOFRAN) injection Intravenous, PRN, Starting on Tue11/02/19 at 1536, Until Tue11/02/19 at 1629, Anesthesia Intra-op $ Given 11/02/2019 3:36 PM BULL WHEEL WORKER 4 mg phenylephrine 100 mcg/mL injection Intravenous, PRN, Starting on Tue11/02/19 at 1334, Until Tue11/02/19 at 1629, Anesthesia Intra-op $ Given 11/02/2019 2:58 PM BULL WHEEL WORKER 100 mcg $ Given 11/02/2019 2:04 PM BULL WHEEL WORKER 100 mcg $ Given 11/02/2019 1:34 PM BULL WHEEL WORKER 100 mcg propofol (DIPRIVAN) injection Intravenous, PRN, Starting on Tue11/02/19 at 0731, Until Tue11/02/19 at 1629, Anesthesia Intra-op $ Given 11/02/2019 7:31 AM BULL WHEEL WORKER 160 mg rocuronium (ZEMURON) injection Intravenous, PRN, Starting on Tue11/02/19 at 0732, Until Tue11/02/19 at 1629, Anesthesia Intra-op $ Given 11/02/2019 1:30 PM BULL WHEEL WORKER 30 mg $ Given 11/02/2019 12:16 PM BULL WHEEL WORKER 50 mg $ Given 11/02/2019 11:44 AM BULL WHEEL WORKER 30 mg sugammadex (BRIDION) injection Intravenous, PRN, Starting on Tue11/02/19 at 1617, Until Tue11/02/19 at 1630, Anesthesia Intra-op $ Given 11/02/2019 4:17 PM BULL WHEEL WORKER 200 mg documented in this encounter Care Teams Java Application Developer Relationship Specialty Start Date End Date Esperanza Ho MD [address] [place] [id number] PCP - General 04/10/19 documented as of this encounter
--- OUTSIDE RECORDS SUMMARY | 2024-08-26 07:04 | XMS_ITS | Encounter Summary ---
Author Organization [facility] Address [address] [place] [address] Care Team Providers Care Bag Inspector Name Role Phone Esperanza Ho MD Primary Care Provider + Reason for Visit * Reason Onset Date Comments MEDICATION REFILL 12/24/2019 Encounter Details Date Type Department Care Team (Late st Contact Info) Description 12/24/2019 Refill [facility] [address] [facility] [place] [address] Sammy Carrero MD [address] [facility] [address] [place] [address] MEDICATION REFILL Social History Tobacco [...] Telephone Encounter - Bernard Hayes, RN - 12/24/2019 10:34 AM CDT Pt is status post??L4-S1 ALIF, L4-S1 PISF [address] Dr[address] Carrero??on 11/02/2019. Pt reports adequate pain control at this time and requesting refill of pain medication. ? Last Fill 12/14/2019 Next Visit: 01/08/20 ? Orders placed and forwarded to Dr. Carrero for review.?? documented in this encounter Plan of Treatment Not on file documented as of this encounter Visit Diagnoses Diagnosis S/P lumbar spinal fusion- Primary Arthrodesis status documented in this encounter Care Teams Bag Inspector Relationship Specialty Start Date End Date Esperanza Ho MD [address] [place] [address] PCP - General 04/10/19 documented as of this encounter
--- OUTSIDE RECORDS SUMMARY | 2024-08-26 07:04 | XMS_ITS | Encounter Summary ---
Author Organization [facility] Address [address] [facility] [place] [address] Care Team Providers Care Injection Moulding Machine Operator Name Role Phone Esperanza Ho MD Primary Care Provider + Reason for Visit * Reason Comments Refill Request Encounter Details Date Type Department Care Team (Late st Contact Info) Description 12/17/2019 Refill [facility] [address] [facility] [place] [address] Sammy Carrero MD [address] [address] Refill Request Social History Tobacco [...] on filedocumented in this encounter Care Teams Injection Moulding Machine Operator Relationship Specialty Start Date End Date Esperanza Ho MD [address] [facility] [address] [place] [address] PCP - General 04/10/19 documented as of this encounter
--- OUTSIDE RECORDS SUMMARY | 2024-08-26 07:04 | XMS_ITS | Encounter Summary ---
Author Organization [facility] Address [address] [facility] [place] [address] Care Team Providers Care Gas Station Supervisor Name Role Phone Esperanza Ho MD Primary Care Provider + Reason for Visit * Reason Onset Date Comments MEDICATION REFILL 12/14/2019 Encounter Details Date Type Department Care Team (Late st Contact Info) Description 12/14/2019 Refill [facility] [address] [facility] [place] [address] Sammy Carrero MD [address] [facility] [address] [place] [address] MEDICATION REFILL Social History Tobacco [...] Telephone Encounter - Bernard Hayes, RN - 12/14/2019 11:47 AM CDT Pt is status post??L4-S1 ALIF, L4-S1 PISF [address] Dr[address] Carrero??on 11/02/2019. Pt reports adequate pain control at this time. Pt is requesting refill on pain medication and Miralax ? Last Fill 12/03/2019 Next Visit: 01/08/20 ? Orders placed and forwarded to Dr. Carrero for review. documented in this encounter Plan of Treatment Not on file documented as of this encounter Visit Diagnoses Diagnosis S/P lumbar spinal fusion- Primary Arthrodesis status documented in this encounter Care Teams Gas Station Supervisor Relationship Specialty Start Date End Date Esperanza Ho MD [address] [place] [address] PCP - General 04/10/19 documented as of this encounter
--- OUTSIDE RECORDS SUMMARY | 2024-08-26 07:04 | XMS_ITS | Encounter Summary ---
Author Organization [facility] Address [address] [place] [address] Care Team Providers Care Building Admin Name Role Phone Esperanza Ho MD Primary Care Provider + Encounter Details Date Type Department Care Team (Latest Contact Info) Description 01/08/2020 Travel Social History Tobacco Use Types Packs/Day [...] on filedocumented in this encounter Care Teams Building Admin Relationship Specialty Start Date End Date Esperanza Ho MD [address] [place] [address] PCP - General 04/10/19 documented as of this encounter
--- OUTSIDE RECORDS SUMMARY | 2024-08-26 07:04 | XMS_ITS | Encounter Summary ---
Author Organization [facility] Address [address] [place] [address] Care Team Providers Care Propellant Charge Loader Name Role Phone Esperanza Ho MD Primary Care Provider + Encounter Details Date Type Department Care Team (Latest Contact Info) Description 05/28/2020 Travel Social History Tobacco Use Types Packs/Day [...] on filedocumented in this encounter Care Teams Propellant Charge Loader Relationship Specialty Start Date End Date Esperanza Ho MD [address] [facility] [address] [place] [address] PCP - General 04/10/19 documented as of this encounter
--- OUTSIDE RECORDS SUMMARY | 2024-08-26 07:04 | XMS_ITS | Encounter Summary ---
Author Organization [facility] Address [address] [facility] [place] [address] Care Team Providers Care Hot Sealing Machine Operator Name Role Phone Esperanza Ho MD Primary Care Provider + Reason for Referral * Radiology Services (Routine) - Closed Specialty Diagnoses / Procedures Referred By Contac t Referred To Contact MRI Diagnoses S/P lumbar spinal fusion Procedures MRI LUMBAR SPINE WO CONTRAST Montana Holliday IV, MD [address] [facility] [place] [address] Referral ID Status Reason Start Date Expiration Date Visits Re quested Visits Authorized [id number] Closed 05/21/2020 07/05/2020 1 1 Reason for Visit * Reason Comments Follow-up Encounter Details Date Type Department Care Team (Late st Contact Info) Description 04/15/2020 1:45 PM CDT Office Visit [facility] [address] [facility] [place] [address] Sammy Carrero MD [address] [facility] [address] [place] [address] S/P lumbar spinal fusion (Primary Dx); Acute right-sided low back pain with sciatica, sciatica laterality unspecified Social History Tobacco Use Types Packs/Day Years [...] PM CDT documented as of this encounter Last Filed Vital Signs Vital Sign Reading Time Taken Comments Blood Pressure 156/94 04/15/2020 1:35 PM CDT Pulse 86 04/15/2020 1:35 PM CDT Temperature 36.9 ??C (98.5 ??F) 04/15/2020 1:35 PM CD T Respiratory Rate 20 04/15/2020 1:35 PM CDT Oxygen Saturation 100% 04/15/2020 1:35 PM CDT Inhaled Oxygen Concentration - - Weight 88 kg (194 lb) 04/15/2020 1:35 PM CDT Height 167.6 cm (5' 6 ) 04/15/2020 1:35 PM CDT Body Mass Index 31.31 04/15/2020 1:35 PM CDT documented in this encounter Functional [...] this encounter Patient Instructions * Patient Instructions* Montana Holliday IV, MD - 04/15/2020 2:07 PM CDT Saray Whitten 04/15/2020 MRI lumbar spine Continue physical therapy exercises and physical activity Call after MRI for results Follow up: after MRI and injection Please contact our clinic call center at if you need to schedule or change an appointment. For medical emergencies please call 911. Please contact Giacomo Hayes RN at or through [employer] if you have any further questions or concerns. [facility] office contact information: [facility] ([facility]) [address] [place] [id number] [place] [address] [place] [address], [address] [address] April 15, 2020 To Whom It May Concern: Please use this letter to document that Saray Whitten, : 1960, was in to see Sammy Carrero MD on 04/15/2020. Thank you. Sincerely, Sammy Carrero MD [facility] documented in this encounter Progress Notes * Montana Holliday IV, MD - 04/15/2020 1:40 PM CDT [facility] Orthopedic Spine Surgery Clinic Note Saray Whitten, 60 year old, female : 1960 CSN: [id number] Primary Care Physician: Esperanza Ho MD Diagnosis/Procedures 1.) Resolved Lumbar spondylolisthesis, Left lateral recess lumbar stenosis with resultant lumbar radiculopathy, L4-5 and L5-S1 s/p ALIF L4-S1, PISF L4-S1 2.) SI joint pain Date of Surgery: 11/02/2019 Time Since injury/surgery: 6 months HPI Date of this clinic visit: 04/15/2020 This is a 60 year old female with history of above status post surgery above who is here for a follow-up clinic appointment. Patient is doing better since surgery but continues to have pain. Pain is located in the lower back and is described as dull and stabbing. She also has pain in the bilateral legs, right worse than left. Patient does have pain at night. For pain control the patient has used tylenol with some relief. They have participated in PT in the past and continues home exercises. They have not received steroid injections in the past. She has numbness and tingling to the bilateral legs right worse than left Denies bowel/bladder retention or incontinence. ROS otherwise negative. Smoking status: None BMI 31.31 Objective Resp 20 Ht 1.676 m (5' 6 ) Wt 88 kg (194 lb) BMI 31.31 kg/m2 PMHx Past Medical History: Diagnosis Date [...] powder ??? senna-docusate (SENOKOT-S) 8.6-50 MG tablet ??? zolpidem (AMBIEN) 10 MG tablet No current facility-administered medications for this visit. Review of Systems - Bowel/Bladder incontinence or retention: Denies - Numbness/paresthesias to extremities: Denies - Hand clumsiness/loss of fine motor skills: Denies - Balance problems: Denies Review of all other systems was negative. Physical Exam General appearance: awake, cooperative, NAD Back: -Tenderness to palpation: SI joint - Healed incision midline lumbar Posture - Erect posture with no cervical thrust, list, or torticollis noted Bilateral Lower Extremity: - Motor: Hip Flexion (L2/3) 5/5 Knee Flexion 5/5 Knee Extension (L4) 5/5 Ankle Dorsiflexion (L5) 5/5 Great Toe Extension (L5) 5/5 Ankle Plantarflexion (S1) 5/5 - Sensation: decreased in below the knee bilaterally - Straight Leg Raise: negative bilaterally - Clonus: absent - Reflexes: Knee Jerk: Normal Achilles: Normal Babinski: Deferred Other findings: -FRANKIE test: positive -Oswestry Score: 44 Gait - Walks with reciprocal heel/toe gait. Imaging - XR lumbar spine reviewed. Demonstrates intact instrumentation in maintained alignment since XR 01/08/20 Assessment/Plan: Saray Whitten is a 60 year old female with right SI joint pain s/p s/p ALIF L4- S1, PISF L4-S1 - Patient was counseled to the nature of their diagnosis and demonstrated understanding - Lifting/Activity restrictions: none - Right SI joint injection - MRI lumbar spine to look for stress fracture - Patient will call after MRI - Follow up in after MRI and injection - Follow up Imaging: none Montana Holliday IV, MD 04/15/2020 Attending Physician Supervisory Note I personally interviewed and examined the patient and agree with the doctor above. Sammy Carrero MD documented in this encounter Plan of Treatment Not on file documented as of this encounter Results * MRI LUMBAR SPINE WO CONTRAST (05/28/2020 12:00 PM CDT) Anatomical Region Laterality Modality Spine Magnetic Resonan ce 05/28/2020 1:20 PM CDT Impressions 05/28/2020 5:41 PM CDT IMPRESSION: Postoperative appearance of lumbosacral fusion at L4-S1 is uncomplicated. Osseous bridging of interbody fusion cannot be verified on this study. Report dictated by Aric Winslow MD (residential recycle driver). I, Dr. JIMBO JONES have personally reviewed [...] study. Report dictated by Aric Winslow MD (residential recycle driver). I, Dr. JIMBO JONES have personally reviewed and interpreted this examination/study. This report was electronically signed by JIMBO JONES on 05/28/2020 5:41 PM . Montana Holliday IV, MD MR ORDERABLES documented in this encounter Visit Diagnoses Diagnosis S/P lumbar spinal fusion- Primary Arthrodesis status Acute right-sided low back pain with sciatica, sciatica laterality unspecified S/P lumbar spinal fusion Arthrodesis status documented in this encounter Care Teams Hot Sealing Machine Operator Relationship Specialty Start Date End Date Esperanza Ho MD [address] [place] [id number] PCP - General 04/10/19 documented as of this encounter
--- OUTSIDE RECORDS SUMMARY | 2024-08-26 07:04 | XMS_ITS | Encounter Summary ---
Author Organization [facility] Address [address] [facility] [place] [address] Care Team Providers Care Export Freight Specialist Name Role Phone Esperanza Ho MD Primary Care Provider + Encounter Details Date Type Department Care Team (Late st Contact Info) Description 04/08/2020 Orders Only [facility] [address] [facility] [place] [address] Sammy Carrero MD [address] [facility] [address] [place] [address] Back pain, unspecified back location, unspecified back pain laterality, unspecified chronicity Social History Tobacco Use Types Packs/Day Years [...] are maintained. Dictated by Stew Messer MD (residential substance abuse counselor). Dr. WALLY Gordon MD have personally reviewed [...] are maintained. Dictated by Stew Messer MD (residential substance abuse counselor). Dr. WALLY Gordon MD have personally reviewed and interpreted this examination/study. This report was electronically signed by WALLY GRIDER MD on04/15/2020 2:23 PM . Sammy Carrero MD DIAGNOSTIC IMAGING O RDERABLES documented in this encounter Visit Diagnoses Diagnosis Back pain, unspecified back location, unspecified back pain laterality, unspecified chronicity- Primary Back pain, unspecified back location, unspecified back pain laterality, unspecified chronicity documented in this encounter Care Teams Export Freight Specialist Relationship Specialty Start Date End Date Esperanza Ho MD [address] [facility] [address] [place] [address] PCP - General 04/10/19 documented as of this encounter
--- OUTSIDE RECORDS SUMMARY | 2024-08-26 07:04 | XMS_ITS | Encounter Summary ---
Author Organization [facility] Address [address] [place] [address] Care Team Providers Care Commercial Real Estate Underwriter Name Role Phone Esperanza Ho MD Primary Care Provider + Reason for Visit * Reason Onset Date Comments MEDICATION REFILL 01/25/2020 Encounter Details Date Type Department Care Team (Late st Contact Info) Description 01/25/2020 Refill [facility] [address] [facility] [place] [address] Sammy Carrero MD [address] [facility] [address] [place] [address] MEDICATION REFILL Social History Tobacco [...] Telephone Encounter - Bernard Hayes, RN - 01/25/2020 2:24 PM CDT Pt is status post??L4-S1 ALIF, L4-S1 PISF [address] Dr. Carrero??on 11/02/2019. Pt is requesting refill of pain medication.? Last Fill??01/18/2020 Last Visit: 01/08/2020 Next Visit:??04/15/2020? Pt informed this will be her final postoperative pain medication Rx. Orders placed and forwarded to Dr. Carrero for review.?? documented in this encounter Plan of Treatment Not on file documented as of this encounter Visit Diagnoses Diagnosis S/P lumbar spinal fusion- Primary Arthrodesis status documented in this encounter Care Teams Commercial Real Estate Underwriter Relationship Specialty Start Date End Date Esperanza Ho MD [address] [place] [address] PCP - General 04/10/19 documented as of this encounter
--- OUTSIDE RECORDS SUMMARY | 2024-08-26 07:04 | XMS_ITS | Encounter Summary ---
Author Organization [facility] Address [address] [facility] [place] [address] Care Team Providers Care Mdm Sr Name Role Phone Esperanza Ho MD Primary Care Provider + Reason for Visit * Reason Onset Date Comments Follow-up 01/15/2020 Encounter Details Date Type Department Care Team (Late st Contact Info) Description 01/15/2020 Telephone [facility] [address] [facility] [place] [address] Bernard Hayes, RN [address] [place] [address] Follow-up Social History Tobacco Use Types Packs/Day Years [...] Miscellaneous Notes * Telephone Encounter - Bernard Hayes RN - 01/15/2020 1:56 PM CDT Pt left VM requesting call back. Pt called no answer, VM Box was full. No message left. documented in this encounter Plan of Treatment Not on file documented as of this encounter Visit Diagnoses Not on filedocumented in this encounter Care Teams Mdm Sr Relationship Specialty Start Date End Date Esperanza Ho MD [address] [place] [address] PCP - General 04/10/19 documented as of this encounter
--- OUTSIDE RECORDS SUMMARY | 2024-08-26 07:04 | XMS_ITS | Encounter Summary ---
Author Organization [facility] Address [address] [place] [address] Care Team Providers Care Whitesmith Name Role Phone Esperanza Ho MD Primary Care Provider + Reason for Visit * Reason Comments Follow-up Encounter Details Date Type Department Care Team (Late st Contact Info) Description 06/03/2020 2:30 PM CDT Office Visit [facility] - Orthopedics [address] [facility], [place] [address] Sammy Carrero MD [address] [facility] [address] [place] [address] Sacroiliac joint pain (Primary Dx); S/P lumbar spinal fusion Social [...] AM CDT documented as of this encounter Last Filed Vital Signs Vital Sign Reading Time Taken Comments Blood Pressure 144/76 06/03/2020 2:04 PM CDT Pulse 85 06/03/2020 2:04 PM CDT Temperature 36.4 ??C (97.6 ??F) 06/03/2020 2:04 PM CD T Respiratory Rate 18 06/03/2020 2:04 PM CDT Oxygen Saturation 100% 06/03/2020 2:04 PM CDT Inhaled Oxygen Concentration - - Weight 89.8 kg (198 lb) 06/03/2020 2:04 PM CDT Height 167.6 cm (5' 6 ) 06/03/2020 2:04 PM CDT Body Mass Index 31.96 06/03/2020 2:04 PM CDT documented in this encounter Functional [...] this encounter Patient Instructions * Patient Instructions* Khoi De La Cruz MD - 06/03/2020 2:50 PM CDT Saray Whitten 06/03/2020 Follow up: 6 months Please contact our clinic call center at if you need to schedule or change an appointment. For medical emergencies please call 911. Please contact Giacomo Hayes RN at or through Locu if you have any further questions or concerns. [facility] Orthopaedic office contact information: [facility] [address] [place] [address] [place] [address] [facility], [place] [address] June 03, 2020 To Whom It May Concern: Please use this letter to document that Saray Whitten, : 1960, was in to see Sammy Carrero MD on 06/03/2020. Thank you. Sincerely, Sammy Carrero MD [facility] documented in this encounter Progress Notes * Khoi De La Cruz MD - 06/03/2020 2:47 PM CDT [facility] Orthopedic Spine Surgery Clinic Note Saray Whitten, 60 year old, female : 1960 CSN: [id number] Primary Care Physician: Esperanza Ho MD Diagnosis/Procedures 1.) Resolved lumbar spondylolisthesis, left lateral recess lumbar stenosis with resultant lumbar radiculopathy at L4-5 and L5-S1 s/p ALIF L4-S1, PISF L4-S1 2.) Right SI joint pain Date of Surgery: 11/02/2019 Time Since injury/surgery: 7 months HPI Date of this clinic visit: 06/03/2020 This is a 60 year old female with history of the above who is here for a follow- up clinic appointment. She denies having pain . She states that she has discomfort located in her right lower back described as dull without radiation. Patient does not have pain at night. She reports cramping in herlegs at night. Patient is able to walk/stand for extended periods without pain. Ambulates with no assistive device. For pain control the patient has used tylenol with some relief. They have participated in PT in the past and continue to do home exercises. They have not received SI joint steroid injections in the past. Denies new numbness/paresthesias or bowel/bladder retention or incontinence. ROS otherwise negative. Smoking status: None BMI: 32 Objective BP 144/76 Pulse 85 Temp 97.6 ??F (36.4 ??C) Resp 18 Ht 1.676 m (5' 6 ) Wt 89.8 kg (198 lb) SpO2 100% BMI 31.96 kg/m2 PMHx Past Medical History: Diagnosis Date [...] cooperative, NAD Back: -Tenderness to palpation: mild over right SI joint - Well-healed midline lumbar incision Posture - Erect posture with no cervical thrust, list, or torticollis noted Bilateral Lower Extremity: - Motor: Hip Flexion (L2/3) 5/5 Knee Flexion 5/5 Knee Extension (L4) 5/5 Ankle Dorsiflexion (L5) 5/5 Great Toe Extension (L5) 5/5 Ankle Plantarflexion (S1) 5/5 - Sensation: Intact to light touch distally - Straight Leg Raise: negative bilaterally - Clonus: absent - Reflexes: Knee Jerk: Normal Achilles: Normal Babinski: Deferred Other findings: -FRANKIE test: positive on right Gait - Walks with reciprocal heel/toe gait. Able to demonstrate heel walk, toe walk, and tandem gait without difficulty. Imaging - MRI lumbar spine reviewed. Imaging demonstrates central canal and neural foramina without evidence of stenosis Assessment/Plan: Saray Whitten is a 60 year old female with right SI joint pain s/p L4-S1 ALIF and L4-S1 PISF - Patient was counseled to the nature of their diagnosis and demonstrated understanding - Recommend follow up with Dr. Ho for night leg cramps - Lifting/Activity restrictions: as tolerated - Follow up in 6 months - Follow up Imaging: xray lumbar spine Khoi De La Cruz MD 06/03/2020 Attending Physician Supervisory Note I personally interviewed and examined the patient and agree with the doctor above. Sammy Carrero MD documented in this encounter Plan of Treatment Not on file documented as of this encounter Visit Diagnoses Diagnosis Sacroiliac joint pain- Primary Disorders of sacrum S/P lumbar spinal fusion Arthrodesis status documented in this encounter Care Teams Whitesmith Relationship Specialty Start Date End Date Esperanza Ho MD [address] [place] [address] PCP - General 04/10/19 documented as of this encounter
--- OUTSIDE RECORDS SUMMARY | 2024-08-26 07:04 | XMS_ITS | Encounter Summary ---
Author Organization [facility] Address [address] [place] [address] Care Team Providers Care Edge Grinder Machine Name Role Phone Esperanza Ho MD Primary Care Provider + Reason for Visit * Reason Onset Date Comments MEDICATION REFILL 12/03/2019 Encounter Details Date Type Department Care Team (Late st Contact Info) Description 12/03/2019 Refill [facility] - Orthopedics [address] [facility] [place] [address] Sammy Carrero MD [address] [facility] [address] [place] [address] MEDICATION REFILL Social History Tobacco [...] Telephone Encounter - Bernard Hayes, RN - 12/03/2019 10:59 AM CDT Pt is status post??L4-S1 ALIF, L4-S1 PISF [address] Dr[address] Carrero??on 11/02/2019. Pt reports adequate pain control at this time. ? Last Fill 11/23/2019 Next Visit: 01/08/20 ?? Orders placed and forwarded to Dr. Carrero for review.?? documented in this encounter Plan of Treatment Not on file documented as of this encounter Visit Diagnoses Diagnosis S/P lumbar spinal fusion- Primary Arthrodesis status documented in this encounter Care Teams Edge Grinder Machine Relationship Specialty Start Date End Date Esperanza Ho MD [address] [facility] [address] [place] [address] PCP - General 04/10/19 documented as of this encounter
--- OUTSIDE RECORDS SUMMARY | 2024-08-26 07:05 | XMS_ITS | Encounter Summary ---
Author Organization [facility] Address [address] [place] [address]. [place], [place] [address] [place] [address] Care Team Providers Care Brush And Broom Clipper Name Role Phone VianeyCodi Lex WATERS Primary Care Provider [phone] Staci Sanchez MD Unavailable [phone] Encounter Details Date Type Department Care Team (Latest Contact Info) Description 04/04/2018 Abstract [facility] Medical Group Social History Tobacco Use Types Packs/Day Years Used Date Smoking Tobacco: Former Smokeless Tobacco: Never Comments:QUIT YEARS AGO Alcohol Use Standard Drinks/Week Comments No 0 (1 standard drink = 0.6 oz pur e alcohol) Comments Unknown Sex and Gender Information Value Date Recorded Sex Assigned at Not on file Legal Sex Female 8:22 PM CDT Gender Identity Not on file Sexual Orientation Straight 06/27/2024 8: 00 AM CDT documented as of this encounter Plan of Treatment Upcoming Encounters Date Type Department Care Team (Late st Contact Info) Description 11/06/2024 12:30 PM A P MANAGER Appointment [facility] [place] [address] Danny Steele MD [address] [place] [phone] 11/06/2024 1:00 PM A P MANAGER Appointment [facility] [address] Danny Steele MD [address] [place] [address] [phone] documented as of this encounter Visit Diagnoses Not on filedocumented in this encounter Care Teams Brush And Broom Clipper Relationship Specialty Start Date End Date Codi Winters APNP Family & Internal Medicine [address] [address] PCP - General ADVANCED PRACTICE SURGICAL TECHNICIAN 02/03/18 11/23/22 Staci Sanchez MD Family & Internal [address] [address] Nadira [employer] And Controls Tester INTERVENTIONAL CARDIOLOGY 02/16/18 documented as of this encounter
--- OUTSIDE RECORDS SUMMARY | 2024-08-26 07:05 | XMS_ITS | Encounter Summary ---
Author Organization [facility] Address [address] [place] [address]. [place], [place] [address] [place] [address] Care Team Providers Care Aqua Ammonia Operator Name Role Phone Zane Foy MD Primary Care Provider Codi Higgins Primary Care Provider [phone] Staci Sanchez MD Unavailable [phone] Encounter Details Date Type Department Care Team (Latest Contact Info) Description 02/02/2018 Abstract [facility] Medical Group Social History Tobacco Use [...] AM CDT documented as of this encounter Progress Notes * Generic Conversion MD Raquel - 02/02/2018 1:37 PM CDT Message Recorded as Task Date: 02/02/2018 12:59 PM, Created By: Marianne Dietz Task Name: Medical Complaint Callback Assigned To: [facility] Team Bernadine Regarding Patient: Saray Whitten, Status: In Progress Comment: Marianne Ditez - 02 Feb 2018 12:59 PM TASK CREATED Caller: Self; Medical Complaint; patient is asking what she can take for headaches with the tramadol. The tramadol makes her tired so she can only take it once a day and she is still in a lot of pain.Has not tried anything OTC because she isn't sure what she can take while on tramadol. please advise jared Wilks crossing Huang Colindres - 02 Feb 2018 1:17 PM TASK REASSIGNED: Previously Assigned To Huang Colindres Tylenol is safe to take with tramadol. Alanna Moran - 02 Feb 2018 1:35 PM TASK IN PROGRESS Alanna Moran 02 Feb 2018 1:37 PM TASK EDITED pt informed with understanding voiced Signatures Electronically signed by : Alanna Moran, ; Feb 02 2018 1:37PM OLD TESTAMENT PROFESSOR (Author) * Cheko Fischer Md, MD - 02/02/2018 8:09 AM CDT Message Recorded as Task Date: 02/01/2018 04:05 PM, Created By: Maribeth Harvey Task Name: Review Document Assigned To: [facility] Team Bernadine Regarding Patient: Saray Whitten, Status: In Progress Comment: Maribeth Harvey - 01 Feb 2018 4:05 PM Maribeth Harvey - 01 Feb 2018 4:05 PM TASK REASSIGNED: Previously Assigned To Huang Colindres LMTC-MRI lspine shows mild arthritis no acute changes. MRI of brain is WNL Marianne Dietz - 01 Feb 2018 4:31 PM TASK IN PROGRESS Message: patient notified -sjs Signatures Electronically signed by : Marianne Dietz MA; Feb 02 2018 8:10AM OLD TESTAMENT PROFESSOR (Author) documented in this encounter Plan of Treatment Upcoming Encounters Date Type Department Care Team (Late st Contact Info) Description 11/06/2024 12:30 PM OLD TESTAMENT PROFESSOR Appointment [facility] [place], [place] [phone] Danny Steele MD [facility] [phone] 11/06/2024 1:00 PM OLD TESTAMENT PROFESSOR [facility]ment [facility] [address] Danny Steele MD [facility] [address] [address] documented as of this encounter Visit Diagnoses Not on filedocumented in this encounter Care Teams Aqua Ammonia Operator Relationship Specialty Start Date End Date Zane Foy MD PCP - General 08/02/16 02/02/18 Codi Winters APNP Family & Internal Medicine [address] [phone] PCP - General ADVANCED PRACTICE CORRESPONDENCE DICTATOR 02/03/18 11/23/22 Staci Sanchez MD [facility] [address] [phone] Nadira Suspender Cutter INTERVENTIONAL CARDIOLOGY 02/16/18 documented as of this encounter
--- OUTSIDE RECORDS SUMMARY | 2024-08-26 07:05 | XMS_ITS | Encounter Summary ---
Author Organization [facility] Address [address] [place] [address]. [place], [place] [address] [place] [address] Care Team Providers Care Tax Investigator Name Role Phone Staci Sanchez MD Unavailable [phone] Neeraj Dodge MD Primary Care Provider [phone] Reason for Referral * Imaging (Routine) - Closed Specialty Diagnoses / Procedures Referred By Contac t Referred To Contact RADIOLOGY Diagnoses Breast calcification, left Procedures MG STEREO CORE BX LT Radha Rosa MD [address] [place] [address] Phone: tel: fax: Referral ID Status Reason Start Date Expiration Date Visits Re quested Visits Authorized [id number] Closed 07/19/2024 07/19/2025 1 1 ARIAL MANAGER Reason for Visit * Imaging (Routine) - Closed Specialty Diagnoses / Procedures Referred By Contac t Referred To Contact RADIOLOGY Diagnoses Breast calcification, left Procedures MG STEREO CORE BX LT Radha Rosa MD [address] [place] [address] Phone: tel: fax: Referral ID Status Reason Start Date Expiration Date Visits Re quested Visits Authorized [id number] Closed 07/19/2024 07/19/2025 1 1 Encounter Details Date Type Department Care Team (Latest Contact Info) Description 07/25/2024 1:30 PM ACTUARIAL MANAGER - 07/25/2024 11:59 PM ACTUARIAL MANAGER Hospital Encounter [facility] [address] [place] [address] Radha Steele MD 14[address] [facility] [address] [place], [place] [address] Discharge Disposition: Home or Self Care (Routine Discharge) Social History Tobacco Use Types Packs/Day Years Used Date Smoking Tobacco: Former Smokeless Tobacco: Never Comments:QUIT YEARS AGO Alcohol Use Standard Drinks/Week Comments No 0 (1 standard drink = 0.6 oz pur e alcohol) Comments No Sex and Gender Information Value Date Recorded Sex Assigned at Not on file Legal Sex Female 8:22 PM CDT Gender Identity Not on file Sexual Orientation Straight 06/27/2024 8: 00 AM CDT documented as of this encounter Medications at Time of Discharge Apple Cider Vinegar 500 MG Tab Take 1 tablet by mouth daily. 03/13/2018 multivitamin tablet Take 1 tablet by mouth daily. nitroglycerin 0.[address] 1 tablet (0.4 mg total) under the tongue every 5 (five) minutes as needed for Chest Pain. Max of 3 doses, after third dose call 911 25 tablet 1 03/13/2018 documented as of this encounter H&P Notes * Radha Steele MD - 07/25/2024 12:00 AM CST Patient Name: SARAY WHITTEN Date of : 1960 Account: [id number] Facility: [facility] Location: [facility] Date of Service: 07/25/2024 Preop History and Physical HISTORY OF PRESENT ILLNESS: Saray Whitten, , date of 1960, is a 64-year-old patient who presents for left stereotactic breast biopsy with clip placement, check pathology, further plans to follow. Clinical review of systems of her breasts is completely negative. Breast imaging studies showed left breast, category 4 per radiologist, upper outer calcifications, few slightly pleomorphic, located centrally in this grouping. PAST MEDICAL HISTORY: 1. Category 4 left breast calcifications. 2. Autoimmune disease. 3. Ankylosing spondylitis. 4. Psoriasis. 5. Hypertension. 6. Patient denies any other known medical problems. PAST SURGICAL HISTORY: 1. Left breast tumor excised in 1973 - benign. 2. Severe spinal stenosis procedure in 2023. MEDICATIONS: 1. Tylenol. 2. One-A-Day Vitamin. 3. Probiotic. 4. Iron. 5. CuraMed Curcumin. 6. Amlodipine 7. Celebrex - see chart for further details regarding dosages. ALLERGIES: NO KNOWN DRUG ALLERGIES. FAMILY HISTORY: Daughter had breast cancer diagnosis at age 44. SOCIAL HISTORY: Patient quit smoking cigarettes in 1984. 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 Lifetime risk of breast cancer 10.6%. Age at menarche 15 years old. Age at first 19 yearsold. Patient has 2 children. Menopause was around 54 years of age. Daughter aged 44 diagnosed with breast cancer. REVIEW OF SYSTEMS: Otherwise negative and please see my office chart sheet for further details. PHYSICAL EXAMINATION: 5 feet 6-1/2 inches, 219 pounds. Vital signs stable and afebrile - see chart for further details. Patient is awake, alert and oriented. She moves all of her extremities well. Her gross motor exam throughout is normal. Her mood, judgment and affect are all normal. She is very pleasant. She is well-developed, well-nourished. She is in no acute distress. There is no palpable neck or supraclavicular lymphadenopathy. Trachea is in the midline. Thyroid is not grossly enlarged. Pupils equal and round. Sclerae nonicteric. Chest: Clear with normal respiratory effort. Heart: Regular rate and rhythm. Extremities: Warm, pink. Abdomen: Soft. Flat. Nontender. No palpable masses or organomegaly. Right breast exam: Normal. Left breast exam: Normal, well-healed periareolar scar from approximately the 11 to 5 o'clock area. Bilateral axillary exam: Normal. IMPRESSION: Left breast category 4 calcifications on mammography. PLAN AND PATIENT REQUEST: Left stereotactic breast biopsy with clip placement, check pathology, further plans to follow. I had a detailed discussion with the patient and her reviewing all above data, differentialdiagnoses, options, the pros and cons of each approach, and the details, risks, benefits, recovery and rationale of the planned procedure. Please see my office chart sheet for further details. She understands and agrees. Procedure is scheduled for Thursday, July 25, 2024. Signature/Date: RADHA STEELE MD #[id number] /EFFIE A copy of this report has been sent to: NEERAJ DODGE MD(Autofax) ARIAL MANAGER documented in this encounter OR Notes * Op Note - Radha Steele MD - 07/25/2024 12:00 AM CST Patient Name: SARAY WHITTEN Date of : 1960 Account: [id number] Facility: [facility] Location: [facility] Date of Service: 07/25/2024 Operative Note PREOPERATIVE DIAGNOSIS: Left breast calcifications, upper outer quadrant, category 4. POSTOPERATIVE DIAGNOSIS: Left breast calcifications, upper outer quadrant, category 4. NAME OF THE PROCEDURE: Left stereotactic breast biopsy with top-hat clip placement. SURGEON: Radha Steele MD. TRAINING SYSTEMS OFFICER: biotechnologist. ANESTHESIA: Xylocaine 1% with Epinephrine. OPERATIVE FINDINGS AND PROCEDURE PERFORMED: I reviewed the patient's left mammogram preoperatively.The calcifications in question were identified, in the upper outer quadrant. The planned procedure, post-biopsy instructions and expectations were all discussed with the patient who understood and agreed. She knows to call the office in several working days' time for pathology results. Instructions were given. Questions were answered. The patient was placed on the stereotactic table. The left breast was imaged. The calcifications inquestion were identified. Coordinates were obtained. Proper timeout procedures were accomplished. The left breast was prepared in the usual sterile fashion. Xylocaine 1% with Epinephrine was infiltrated down to and around the left breast calcifications as above outlined. Next, a small incision was made. The stereotactic needle was inserted through an anesthetized tract and both pre- and post-fireimages taken. The needle was in the proper position. Samples were retrieved. Specimen x-ray showed the calcifications in question to be present within the biopsy specimen, indicative of a successful biopsy. The tissue was sent to the pathology department. A top-hat clip was placed into the biopsy bed, at the conclusion of the procedure with complete removal of the clip product development ecologist. Images on the stereotactic table showed the clip to be in the proper position with resection of the majority of the calcifications. The clip product development ecologist had been removed as had the stereotactic needle. Pressure was held. There was no bleeding. There was no hematoma. There were no immediate complications. Sterile dressings were applied. Two-view left mammogram is pending. INTRAVENOUS FLUIDS: None. PACKS: None. DRAINS: None. BLOOD LOSS: Negligible. The patient left the stereotactic room in good condition. A two-view left mammogram is pending. Signature/Date: RADHA STEELE MD #[id number] /EFFIE A copy of this report has been sent to: NEERAJ DODGE MD(Autofax) ARIAL MANAGER documented in this encounter Plan of Treatment Upcoming Encounters Date Type Department Care Team (Late st Contact Info) Description 11/06/2024 12:30 PM ACTUARIAL MANAGER Appointment [facility] [address] [place], [place] [id number] Radha Steele MD [address] [place] [phone] 11/06/2024 1:00 PM ACTUARIAL MANAGER [facility]ointment [facility] [address] [place], [place] [address] Radha Steele MD [facility] [id number] documented as of this encounter Procedures Procedure Name Priority Date/Time Associated Diagnosis Comments MG DIAGNOSTIC LT DIGI Routine 07/25/2024 3:05 PM ACTUARIAL MANAGER Breast calcification, left MG TISSUE STUDY LOC LT Routine 07/25/2024 3:00 PM ACTUARIAL MANAGER Breast calcification, left MG STEREO CORE BX LT BIRAD Routine 07/25/2024 2:41 PM ACTUARIAL MANAGER Breast calcification, left PATHOLOGY Routine 07/25/2024 12:00 AM ACTUARIAL MANAGER Breast calcification, left documented in this encounter Results * MG DIAGNOSTIC LT DIGI (07/25/2024 3:05 PM ACTUARIAL MANAGER) Anatomical Region Laterality Modality Breast Left Mammography 07/25/2024 4:04 PM ACTUARIAL MANAGER Impressions 07/25/2024 4:06 PM ACTUARIAL MANAGER =====IMPRESSION:===== Postbiopsy mammogram with grossly appropriate clip placement. Specimen contains numerous calcifications. ASSESSMENT: WAITING FOR PATHOLOGY Recommendation: 1: Waiting on Pathology Left COMMENTS: Ordered By: RADHA STEELE Interpreted By: Gorge Britton, 07/25/2024 4:04 PM Narrative 07/25/2024 4:[address] [facility] [place] [address] EXAMINATION: Digital left diagnostic mammogram with 3-D tomography and left breast specimen [id number] EXAM DATE/TIME: 07/25/2024 2:18 PM REASON FOR EXAM: ??post biopsy, left breast calcifications ? COMPARISON: 07/11/2024 TECHNIQUE: Digital diagnostic mammography of the left breast was performed, as well as mammographic image of left breast stereotactic biopsy specimen. This study was read with the assistance of a computer-aided detection system. TISSUE DENSITY: There are scattered areas of fibroglandular density. FINDINGS: Left breast: Left upper outer quadrant biopsy clip grossly well- positioned. Underlying postbiopsy changes. Specimen: Numerous calcifications seen within the biopsy specimen. us Radha Steele MD MAMMO Final Result * MG TISSUE STUDY LOC LT (07/25/2024 3:00 PM ACTUARIAL MANAGER) Anatomical Region Laterality Modality Breast Mammography 07/25/2024 4:04 PM ACTUARIAL MANAGER Impressions 07/25/2024 4:06 PM ACTUARIAL MANAGER =====IMPRESSION:===== Postbiopsy mammogram with grossly appropriate clip placement. Specimen contains numerous calcifications. ASSESSMENT: WAITING FOR PATHOLOGY Recommendation: 1: Waiting on Pathology Left COMMENTS: Ordered By: RADHA STEELE Interpreted By: Gorge Britton, 07/25/2024 4:04 PM Narrative 07/25/2024 4:[address] [facility] [place] [address] EXAMINATION: Digital left diagnostic mammogram with 3-D tomography and left breast specimen [id number] EXAM DATE/TIME: 07/25/2024 2:18 PM REASON FOR EXAM: ??post biopsy, left breast calcifications ? COMPARISON: 07/11/2024 TECHNIQUE: Digital diagnostic mammography of the left breast was performed, as well as mammographic image of left breast stereotactic biopsy specimen. This study was read with the assistance of a computer-aided detection system. TISSUE DENSITY: There are scattered areas of fibroglandular density. FINDINGS: Left breast: Left upper outer quadrant biopsy clip grossly well- positioned. Underlying postbiopsy changes. Specimen: Numerous calcifications seen within the biopsy specimen. Procedure Note Gorge Britton MD - 07/25/2024 [facility] [place] [address] EXAMINATION: Digital left diagnostic mammogram with 3-D tomography andleft breast specimen [id number] EXAM DATE/TIME: 07/25/2024 2:18 PM REASON FOR EXAM: post biopsy, left breast calcifications COMPARISON: 07/11/2024 TECHNIQUE: Digital diagnostic mammography of the left breast wasperformed, as well as mammographic image of left breast stereotacticbiopsy specimen. This study was read with the assistance of Innovash[employer]tv[employer]-aided detection system. TISSUE DENSITY: There are scattered areas of fibroglandular density. FINDINGS: Left breast: Left upper outer quadrant biopsy clip grosslywell- positioned. Underlying postbiopsy changes. Specimen: Numerous calcifications seen within the biopsy specimen. =====IMPRESSION:===== Postbiopsy mammogram with grossly appropriate clip placement. Specimen contains numerous calcifications. ASSESSMENT: WAITING FOR PATHOLOGY Recommendation: 1: Waiting on Pathology Left COMMENTS: Ordered By: RADHA STEELE Interpreted By: Gorge Britton, 07/25/2024 4:04 PM Radha Steele MD MAMMO Final Result * MG STEREO CORE BX LT BIRAD (07/25/2024 2:41 PM ACTUARIAL MANAGER) LEFT BREAST STRUCTURE / Unknown Narrative Misa Desir, RTR - 07/25/2024 2:47 PM ACTUARIAL MANAGER This report does not contain a radiologist's interpretation. Please review associated procedure and/or operative report. Radha Steele MD MAMMO Final Result * Pathology (07/25/2024 12:00 AM ACTUARIAL MANAGER) PATHOLOGY [facility] ? Department of Laboratory Medicine ?[address] [facility] ?[place] [address] ? , extension [phone] ? Pathology Report ? Surgical Pathology Report Name: SARAY WHITTEN ?Specimen #: [id number] Age: 7 1960 (Age: 64) ?Location: [facility] Sex: F ?Procedure Date: 07/25/2024 Hospital #: [id number] ?Date Received: 07/26/2024 Date Reported: 07/31/2024 Provider: RADHA STEELE MD Source: Breast, left, needle biopsies Clinical History: Left breast calcifications Gross Description: Received in formalin, labeled with a patient label and as left breast calcs , are multiple needle core biopsies of white-david to yellow-david soft tissue ranging from 0.3 to 2.4 cm in greatest dimension. ??The specimen is entirely submitted in cassettes 1-3. Please note: ??The cold ischemia time for this specimen was less than one hour. ??It was placed in formalin at 1438 on 07/25/2024 for a total time in formalin of 28.5 hours. Gross examination (when applicable) was performed at [facility], [address] [place] [address]. This case was interpreted and signed out at [facility], [address] [facility] [place] [address]. All immunohistochemical and histochemical tests were developed by and performed at [facility], [address] [place] [address]. All tests reported here have not been cleared or approved by the U.S. Food and Drug Administration (FDA). This laboratory is regulated under CLIA as qualified to perform high-complexity testing. These tests are used for clinical purposes. They should not be regarded as investigational or for research. Positive and negative controls show appropriate reactivity. FINAL DIAGNOSIS: Breast, left, biopsy: ? -Proliferative fibrocystic changes (usual ductal hyperplasia, columnar cell changes) and fibroadenomatoid changes associated with calcifications ? -Negative for malignancy Diagnosis Comment: Immunohistochemical stains performed as follows: Blocks 1, 3- Cam5.2/SMMHC/p63 triple stain: Highlights benign breast parenchyma CK5/6: Highlights myoepithelial cells with hyperplasia ER: Expected staining pattern in breast parenchyma IC: CEF, TYRONE Electronically Signed Out ? KRYSTEN MENDOZA MD [facility] 07/25/2024 07/26/2024 8:4 2 AM ACTUARIAL MANAGER Comment:Breast, left, needle biopsies us Radha Steele MD PATHOLOGY/CYTOLOGY ORDERABLES Final Result [facility] [address] [place] [address], [id number] documented in this encounter Visit Diagnoses Diagnosis Breast calcification, left Other (abnormal) findings on radiological examination of breast documented in this encounter Administered Medications Inactive Administered Medications - up to 3 most recent administrations Medication Order MAR Action Action Date Dose Rate Site lidocaine-EPINEPHrine 1 %-1:923106 injection 20 mL 20 mL, Intradermal, Once, 1 dose, On Tue07/25/24 at 1500 Given by Other 07/25/2024 2:20 PM ACTUARIAL MANAGER 20 mLs Left Breast sodium chloride 0.9 % irrigation 250 mL 250 mL, Irrigation, Continuous, Starting on Tue07/25/24 at 1500, Until 07/27/24 at 0241 New Bag 07/25/2024 2:20 PM ACTUARIAL MANAGER 250 mLs Left Breast documented in this encounter Care Teams Tax Investigator Relationship Specialty Start Date End Date Neeraj Dodge MD [address] [facility] [address] [place] [address] PCP - General FAMILY PRACTICE 11/24/22 Staci Sanchez MD Nadira Electrical Technology Instructor INTERVENTIONAL CARDIOLOGY 02/16/18 documented as of this encounter
--- OUTSIDE RECORDS SUMMARY | 2024-08-26 07:05 | XMS_ITS | Encounter Summary ---
Author Organization [facility] Address [address] [place] [address]. [place], [place] [address] [place] [address] Care Team Providers Care Laundry Machine Tender Name Role Phone Codi Winters Primary Care Provider [phone] Staci Sanchez MD Unavailable [phone] Reason for Referral * (Routine) - Closed Specialty Diagnoses / Procedures Referred By Amy amaro Referred To Contact Diagnoses Atypical chest pain SERRATO (dyspnea on exertion) Dyslipidemia Procedures Stress test only, exercise [facility] [place] [address] Phone: tel: Referral ID Status Reason Start Date Expiration Date Visits Re quested Visits Authorized [id number] Closed 04/03/2018 05/04/2019 1 1 Reason for Visit * Diagnostic Lab (Routine) - Closed Specialty Diagnoses / Procedures Referred By Contac prem Referred To Contact CARDIOLOGY DIAGNOSTICS Diagnoses Atypical chest pain Angina effort (CMS/HCC) Procedures STRESS TEST ONLY, EXERCISE ([id number]) CARDIAC STRESS TST,DR YUMIKO ONLY CARDIAC STRESS TST,INTERP/REPT ONLY Staci Sanchez MD Family & Internal Medicine [address] [address] Phone: tel: fax: [facility] [place] [address] Phone: tel: Referral ID Status Reason Start Date Expiration Date Visits Re quested Visits Authorized [id number] Closed 03/13/2018 04/13/2019 1 1 Encounter Details Date Type Department Care Team (Late st Contact Info) Description 04/04/2018 2:05 PM CDT - 04/04/2018 11:59 PM CDT Hospital Encounter [facility] [address] [facility] [place] [address] Staci Sanchez MD [address] [place] [address] Bijan Zarate MD [facility]. [address] [place], [place] [address] Discharge Disposition: Home or Self Care (Routine [...] 1 03/13/2018 documented as of this encounter Plan of Treatment Upcoming Encounters Date Type Department Care Team (Late st Contact Info) Description 11/06/2024 12:30 PM EXT JS DEVELOPER Appointment [facility] [place] [address] Danny Steele MD [address] [id number] 11/06/2024 1:00 PM EXT JS DEVELOPER Appointment [facility] [address] [place], [place] [address] Danny Steele MD [address] [facility] [address] [place], [place] [id number] documented as of this encounter Procedures Procedure Name Priority Date/Time Associated Diagnosis Comments STRESS TEST ONLY, EXERCISE Routine 04/04/2018 3:59 PM CDT Atypical chest pain SERRATO (dyspnea on exertion) Dyslipidemia documented in this encounter Results * Stress test only, exercise (04/04/2018 3:59 PM CDT) 04/04/2018 3:59 PM CDT Narrative [facility] - 04/04/2018 5:57 PM CDT ? STRESS TEST TRACING ONLY ? Pat.Name: ??SARAY WHITTEN ?Pat.ID: ?[id number] ? St.Date: ?? 04/04/2018 ? Refer.: ??JT Perez ? Exam Time: 3:59:00 PM ? Study Type:DEE DEE NC STRESS TEST TRACING ONLY Height: ?66in ?Weight: ?211lb ? BSA: ? 2.05 m2 ?Age: ??1960,58Y ? Sex: ? FEMALE ?Pat. Stat.:Outpatient ? Reason for Study:Chest pain, Shortness of breath History / Clinical:Dyslipidemia ? Procedures:Regular Treadmill Stress Test Race: ?B ? Surgery: ?? None ? Medications:Apple cidar vinegar, MVI, Nitroglycerin ++++++++++++++++++++++++++++++++++++ SUMMARY: ++++++++++++++++++++++++++++++++++++ Stress conclusion: 1. ? Clinically negative. 2. ? Electrocardiographically negative treadmill test for ischemia. 3. ? Adequate exercise capacity. ?? 4. ? Blood pressure response was normal. ?? 5. ? Arechiga Treadmill Score is 1, which indicates moderate risk. ++++++++++++++++++++++++++++++++++++ STRESS: ++++++++++++++++++++++++++++++++++++ Baseline Vital Signs: ?Test ? Treadmill Test ECG ?Normal sinus rhythm ? Protocol ?? Jony HR ? 86 ?Duration ?? 06:00Atropine 0 Rest BP ?152/92 ?Max. Workload (METS) 7.2 Stress Test Results: Max. HR ?156 ? Pred. Max. Heart Rate (100%) 161 ?? % Target: ??97 % ? Max BP ? 180/80 ?O2 Sat ? 100 % Max RPP ?11002 ? Symptoms and Complications: Terminated Attainment of adequate heart rate, Shortness of breath Symptoms ?? Shortness of breath Complications None Stress ECG Interp Sinus tachycardia, Upsloping ST depression Signed 04/04/2018 05:57 PM Bijan Zarate M.D. Procedure Note Cheko García MD - 04/04/2018 STRESS TEST TRACING ONLY Pat.Name: SARAY WHITTEN Pat.ID: [id number] St.Date: 04/04/2018 Refer.MD: JT Perez Exam Time: 3:59:00 PM Study Type:DEE DEE [place] STRESS TEST TRACING ONLY Height: 66in Weight: 211lb BSA: 2.05 m2 Age: 7 1960,58Y Sex: FEMALE Pat. Stat.:Outpatient Reason for Study:Chest pain, Shortness of breath History / Clinical:Dyslipidemia Procedures:Regular Treadmill Stress Test Race: B Surgery: None Medications:Apple cidar vinegar, MVI, Nitroglycerin ++++++++++++++++++++++++++++++++++++ SUMMARY: ++++++++++++++++++++++++++++++++++++ Stress conclusion: 1. Clinically negative. 2. Electrocardiographically negative treadmill test for ischemia. 3. Adequate exercise capacity. 4. Blood pressure response was normal. 5. Arechiga Treadmill Score is 1, which indicates moderate risk. ++++++++++++++++++++++++++++++++++++ STRESS: ++++++++++++++++++++++++++++++++++++ Baseline Vital Signs: Test Treadmill Test ECG Normal sinus rhythm Protocol Jony HR 86 Duration 06:00Atropine 0 Rest BP 152/92 Max. Workload (METS) 7.2 Stress Test Results: Max. HR 156 Pred. Max. Heart Rate (100%) 161 % Target: 97 % Max BP 180/80 O2 Sat 100 % Max RPP 15769 Symptoms and Complications: Terminated Attainment of adequate heart rate, Shortness of breath Symptoms Shortness of breath Complications None Stress ECG Interp Sinus tachycardia, Upsloping ST depression Signed 04/04/2018 05:57 PM Bijan Zarate M.D. us Staci Sanchez MD [facility] CARDIAC SERVICES ORDERAB LES Final Result [facility] documented in this encounter Visit Diagnoses Diagnosis Atypical chest pain- Primary Other chest pain SERRATO (dyspnea on exertion) Other dyspnea and respiratory abnormality Dyslipidemia Other and unspecified hyperlipidemia documented in this encounter Care Teams Laundry Machine Tender Relationship Specialty Start Date End Date Codi Winters APNP Family & Internal Medicine [address] [address] PCP - General ADVANCED PRACTICE ADVERTISING ASSISTANT MANAGER 02/03/18 11/23/22 Staci Sanchez MD Family & Internal Medicine [address] [address] Nadira Stemhole Borer And Topper INTERVENTIONAL CARDIOLOGY 02/16/18 documented as of this encounter
--- OUTSIDE RECORDS SUMMARY | 2024-08-26 07:05 | XMS_ITS | Encounter Summary ---
Author Organization [facility] Address [address] [place] [address]. [place], [place] [address] [place] [address] Care Team Providers Care Money Room Supervisor Name Role Phone VianeyCodi Lex WATERS Primary Care Provider [phone] Staci Sanchez MD Unavailable [phone] Encounter Details Date Type Department Care Team (Latest Contact Info) Description 07/11/2018 Scan [facility] , Cheko Fischer MD Social History Tobacco Use Types Packs/Day Years [...] st Contact Info) Description 11/06/2024 12:30 PM DECALER Appointment [facility] [place], [place] [address] Danny Steele MD [address] [place] [phone] 11/06/2024 1:00 PM DECALER Appointment [facility] [place], [place] [address] Danny Steele MD [address] [place] [phone] documented as of this encounter Visit Diagnoses Not on filedocumented in this encounter Care Teams Money Room Supervisor Relationship Specialty Start Date End Date Codi Winters APNP [facility] & Internal Medicine [address] [address] PCP - General ADVANCED PRACTICE PAPER FEEDER 02/03/18 11/23/22 Staci Sanchez MD [facility] & Internal [address] [address] Nadira Pulp Bleacher INTERVENTIONAL CARDIOLOGY 02/16/18 documented as of this encounter
--- OUTSIDE RECORDS SUMMARY | 2024-08-26 07:05 | XMS_ITS | Encounter Summary ---
Author Organization [facility] Address [address] [place] [address]. [place], [place] [address] [place] [address] Care Team Providers Care Screen Roller Name Role Phone Staci Sanchez MD Unavailable [phone] Esperanza Ho MD Primary Care Provider [phone] Reason for Visit * Imaging (Routine) - Closed Specialty Diagnoses / Procedures Referred By Contac t Referred To Contact RADIOLOGY Diagnoses Encounter for screening mammogram for malignant neoplasm of breast Procedures MG SCREENING W ELEANOR ROE Sabina Jaffe MD [address] [place] [address] Phone: tel: fax: Referral ID Status Reason Start Date Expiration Date Visits Re quested Visits Authorized [id number] Closed 11/24/2022 11/25/2023 1 1 Encounter Details Date Type Department Care Team (Late Contact Info) Description 01/11/2023 12:54 PM CDT - 01/11/2023 11:59 PM CDT Hospital Encounter [facility] Imaging Center Mammography [address] [place] [address] Sabina Londono MD [address] [place] [address] Discharge Disposition: Home or Self Care (Routine [...] Orientation Straight 06/27/2024 8: 00 AM CDT COVID-19 Exposure Response Date Recorded In the last 10 days, have yo u been in contact with someone who was confirmed or suspected to have Coronavirus/COVID-19? No / Unsure 01/11/2023 12:50 PM CDT documented as of this encounter Medications [...] st Contact Info) Description 11/06/2024 12:30 PM MEDICAL CODING AUDITOR Appointment [facility] [place], [place] [id number] Danny Steele MD [address] [place] [address] [phone] 11/06/2024 1:00 PM MEDICAL CODING AUDITOR Appointment [facility] [place], [place] [address] Danny Steele MD [address] [place] [address] [phone] documented as of this encounter Procedures Procedure Name Priority Date/Time Associated Diagnosis Comments MG SCREENING W ELEANOR ROE DIGI Routine 01/11/2023 1:20 PM CDT Encounter for screening mammogram for malignant neoplasm of breast documented in this encounter Results * MG SCREENING W ELEANOR ROE DIGI (01/11/2023 1:20 PM CDT) Anatomical Region Laterality Modality Breast Bilateral Mammography 01/11/2023 4:05 PM CDT Narrative 01/11/2023 4:07 PM CDT Examination: Digital screening mammogram with CAD. Clinical history: Asymptomatic patient presents for routine screening. Comparison: 11/16/2021, 08/08/2020, 06/26/2019, 05/29/2018. Technique: Bilateral digital mammograms. The exam was interpreted with the use of a computer-aided detection (CAD) system. ??Additional 3-D tomosynthesis images were acquired. Tissue density: The breast tissue contains scattered fibroglandular densities. Findings: The breast tissue contains scattered fibroglandular densities. ?? Benign-appearing calcification noted. No suspicious mass, microcalcification or area of architectural distortion can be identified. From a mammographic standpoint, routine followup in one year would seem adequate. IMPRESSION: No suspicious change since the previous exams. Recommendation: 1: Routine Screening ??Bilateral ??in 1 Year Assessment: ACR BI-RADS 2 - BENIGN FINDING(S) Ordered By: SABINA LONDONO Interpreted By: Quentin Dickson MD, 01/11/2023 4:05 PM Sabina Londono MD MAMMO Final Re sult documented in this encounter Visit Diagnoses Not on filedocumented in this encounter Care Teams Screen Roller Relationship Specialty Start Date End Date Esperanza Ho MD [address] [facility] [address] [place] [address] PCP - General FAMILY PRACTICE 11/24/22 Staci Sanchez MD Nadira Metal Sprayer Machined Parts INTERVENTIONAL CARDIOLOGY 02/16/18 documented as of this encounter
--- OUTSIDE RECORDS SUMMARY | 2024-08-26 07:05 | XMS_ITS | Encounter Summary ---
Author Organization [facility] Address [address] [place] [address]. [place] [address] [place] [address] Care Team Providers Care Second Worker Name Role Phone Staci Sanchez MD Unavailable [phone] Esperanza Ho MD Primary Care Provider [phone] Encounter Details Date Type Department Care Team (Latest Contact Info) Description 07/11/2024 Travel Social History Tobacco Use Types Packs/Day [...] st Contact Info) Description 11/06/2024 12:30 PM CANDLE MOLDER HAND Appointment [facility] [address] Danny Steele MD [address] [place] [phone] 11/06/2024 1:00 PM CANDLE MOLDER HAND Appointment [facility] [address] Danny Steele MD [address] [place] [address] [phone] documented as of this encounter Visit Diagnoses Not on filedocumented in this encounter Care Teams Second Worker Relationship Specialty Start Date End Date Esperanza Ho MD [address] [facility] [address] [place] [address] PCP - General FAMILY PRACTICE 11/24/22 Staci Sanchez MD Nadira Boilers Inspector INTERVENTIONAL CARDIOLOGY 02/16/18 documented as of this encounter
--- OUTSIDE RECORDS SUMMARY | 2024-08-26 07:05 | XMS_ITS | Encounter Summary ---
Author Organization [facility] Address [address] [place] [address]. [place], [place] [address] [place] [address] Care Team Providers Care Order Packer Name Role Phone VianeyCodi powers Lex WATERS Primary Care Provider [phone] Staci Sanchez MD Unavailable [phone] Reason for Visit * Reason Comments Consent Doc (SCAN)* SHARITA consent Encounter Details Date Type Department Care Team (Late Contact Info) Description 09/21/2018 Scan [facility] Scanned, Documents Consent Doc (SCAN)* (SHARITA consent ) Social History Tobacco Use Types Packs/Day Years [...] Encounters Date Type Department Care Team (Late Contact Info) Description 11/06/2024 12:30 PM BEAUTY PARLOR CLEANER Appointment [facility] [place], [place] [phone] Danny Steele MD [address] [place] [address] [phone] 11/06/2024 1:00 PM BEAUTY PARLOR CLEANER Appointment [facility] [place], [place] [phone] Danny Steele MD [facility] [address] [address] documented as of this encounter Visit Diagnoses Not on filedocumented in this encounter Care Teams Order Packer Relationship Specialty Start Date End Date Codi Winters APNP Family & Internal Medicine [address] [phone] PCP - General ADVANCED PRACTICE EMAIL ENGINEER 02/03/18 11/23/22 Staci Sanchez MD Family & Internal Medicine [address] [phone] Nadira Missionary Coordinator INTERVENTIONAL CARDIOLOGY 02/16/18 documented as of this encounter
--- OUTSIDE RECORDS SUMMARY | 2024-08-26 07:05 | XMS_ITS | Clinical Summary ---
Author Organization [facility] Address [address] [place] [address]. [place] [address] [place] [address] Care Team Providers Care Hand Clerical Verifier Name Role Phone Staci Sanchez MD Unavailable [phone] Neeraj Dodge MD Primary Care Provider [phone] Allergies No known active allergies Medications multivitamin tablet Take 1 tablet by mouth daily. Active Apple Cider Vinegar 500 MG Tab Take 1 tablet by mouth daily. 03/13/2018 Active nitroglycerin 0.[address] 1 tablet (0.4 mg total) under the tongue every 5 (five) minutes as needed for Chest Pain. Max of 3 doses, after third dose call 911 25 tablet 1 03/13/2018 Active Active Problems Problem Noted Date Diagnosed Date Atypical chest pain SERRATO (dyspnea on exertion) Dyslipidemia Encounters Date Type Department Care Team Description 07/25/2024 1:30 PM POLYETHYLENE BAG MACHINE OPERATOR - 07/25/2024 11:59 PM [facility] Hospital Encounter [facility] [address] Radha Steele MD Discharge Disposition: Home or Self Care (Routine Discharge) 07/25/2024 Travel 07/11/2024 7:56 AM POLYETHYLENE BAG MACHINE OPERATOR - 07/11/2024 11:59 PM [facility] Hospital Encounter [facility] [address] Neeraj Dodge MD Discharge Disposition: Home or Self Care (Routine Discharge) 07/11/2024 Travel 07/03/2024 12:39 PM CDT - 07/03/2024 11:59 PM CDT Hospital Encounter [facility] Imaging Center Mammography [address] [place] [address] Neeraj Dodge MD Owens, Markel L, MD Discharge Disposition: Home or Self Care (Routine Discharge) 07/03/2024 Travel from Last 3 Months Family History Medical History Relation Comments Breast Cancer Daughter february 2024 double mastectomy BRAC ! CABG Mother Relation Status Comments Daughter Alive Father (Age 63) Mother (Age 80) Social History Tobacco Use Types Packs/Day Years [...] Orientation Straight 06/27/2024 8: 00 AM CDT Last Filed Vital Signs Vital Sign Reading Time Taken Comments Blood Pressure 130/82 03/13/2018 3:12 PM CDT Pulse 72 03/13/2018 3:12 PM CDT Temperature 37.1 ??C (98.8 ??F) 11/01/2017 10:[address] Respiratory Rate 19 11/01/2017 11:10 AM POLYETHYLENE BAG MACHINE OPERATOR Oxygen Saturation 96% 03/13/2018 3:12 PM CDT Inhaled Oxygen Concentration - - Weight 95.7 kg (211 lb) 03/13/2018 3:12 PM CDT Height 168.9 cm (5' 6.5 ) 03/13/2018 3:12 PM CDT Body Mass Index 33.55 03/13/2018 3:12 PM CDT Plan of Treatment Upcoming Encounters Date Type Department Care Team (Late st Contact Info) Description 11/06/2024 12:30 PM POLYETHYLENE BAG MACHINE OPERATOR [facility]ment [facility] [place] [address] Radha Steele MD [facility] [address] [address] 11/06/2024 1:00 PM POLYETHYLENE BAG MACHINE OPERATOR Appointment [facility]ound [address] [facility] [address] [place], [place] [phone] Radha Steele MD [address] [facility] [address] [place] [address] Health Maintenance Due Date Last Done Comments Hepatitis C 1977 DTaP, Tdap and Td Vaccines (1 - Tdap) 1978 Zoster Vaccines (1 of 2) 2009 Dexa Scan (General) 2024 Pneumococcal Vaccine: 65+ Years (1 of 1 - PCV) 2024 COVID-19 Vaccine ( season) 2024 09/13/2021, 12/26/2020, 11/28/2020 Influenza Adult (#1) 2024 Mammogram Screening 07/25/2026 07/25/2024, 07/11/2024, 07/03/2024, Additional history exists Colorectal Cancer Screening Colonoscopy (10 Years) 11/01/2027 11/01/2017 RSV Immunization or 60+ Years (1 - 1-dose 75+ series) 2034 Meningococcal Vaccine Aged Out No eugenio dimitrios eligible based on patient's age to complete this topic Pneumococcal Vaccine: Pediatrics (0 to 5 Years) and At-Risk Patients (6 to 64 Years) Aged Out No longer eligible based on patient's age to complete this topic RSV Immunizations Under 20 Months Aged Out No longer eligible based on patient's age to complete this topic Procedures Procedure Name Priority Date/Time Associated Diagnosis Comments MG DIAGNOSTIC LT DIGI Routine 07/25/2024 3:05 PM POLYETHYLENE BAG MACHINE OPERATOR Breast calcification, left MG TISSUE STUDY LOC LT Routine 07/25/2024 3:00 PM POLYETHYLENE BAG MACHINE OPERATOR Breast calcification, left MG STEREO CORE BX LT BIRAD Routine 07/25/2024 2:41 PM POLYETHYLENE BAG MACHINE OPERATOR Breast calcification, left PATHOLOGY Routine 07/25/2024 12:00 AM POLYETHYLENE BAG MACHINE OPERATOR Breast calcification, left MG DIAG W ELEANOR LT DIGI Routine 07/11/2024 8:19 AM POLYETHYLENE BAG MACHINE OPERATOR Abnormal mammogram MG SCREENING W ELEANOR ROE DIGI Routine 07/03/2024 12:54 PM CDT Encounter for screening mammogram for malignant neoplasm of breast COLONOSCOPY Routine 11/01/2017 12:00 AM POLYETHYLENE BAG MACHINE OPERATOR from Last 3 Months or Most Recently Relevant to Health Maintenance Results * MG DIAGNOSTIC LT DIGI (07/25/2024 3:05 PM POLYETHYLENE BAG MACHINE OPERATOR) Anatomical Region Laterality Modality Breast Left Mammography 07/25/2024 4:04 PM POLYETHYLENE BAG MACHINE OPERATOR Impressions 07/25/2024 4:06 PM POLYETHYLENE BAG MACHINE OPERATOR =====IMPRESSION:===== Postbiopsy mammogram with grossly appropriate clip placement. Specimen contains numerous calcifications. ASSESSMENT: WAITING FOR PATHOLOGY Recommendation: 1: Waiting on Pathology Left COMMENTS: Ordered By: RADHA STEELE Interpreted By: Gorge Britton, 07/25/2024 4:04 PM Narrative 07/25/2024 4:06 PM POLYETHYLENE BAG MACHINE OPERATOR [facility] [place] [address] EXAMINATION: Digital left diagnostic mammogram with 3-D tomography and left breast specimen [id number] EXAM DATE/TIME: 07/25/2024 2:18 PM REASON FOR [...] TISSUE STUDY LOC LT (07/25/2024 3:00 PM POLYETHYLENE BAG MACHINE OPERATOR) Anatomical Region Laterality Modality Breast Mammography 07/25/2024 4:04 PM POLYETHYLENE BAG MACHINE OPERATOR Impressions 07/25/2024 4:06 PM POLYETHYLENE BAG MACHINE OPERATOR =====IMPRESSION:===== Postbiopsy mammogram with grossly appropriate clip placement. Specimen contains numerous calcifications. ASSESSMENT: WAITING FOR PATHOLOGY Recommendation: 1: Waiting on Pathology Left COMMENTS: Ordered By: RADHA STEELE Interpreted By: Gorge Britton, 07/25/2024 4:04 PM Narrative 07/25/2024 4:06 PM POLYETHYLENE BAG MACHINE OPERATOR [facility] [place] [address] EXAMINATION: Digital left diagnostic mammogram with 3-D tomography and left breast specimen [id number] EXAM DATE/TIME: 07/25/2024 2:18 PM REASON FOR [...] Procedure Note Gorge Britton MD - 07/25/2024 [facility] [place] [address] EXAMINATION: Digital left diagnostic mammogram with 3-D tomography andleft breast specimen [id number] EXAM DATE/TIME: 07/25/2024 2:18 PM REASON FOR EXAM: post biopsy, left breast calcifications COMPARISON: 07/11/2024 TECHNIQUE: Digital diagnostic mammography of the left breast wasperformed, as well as mammographic image of left breast stereotacticbiopsy specimen. This study was read with the assistance of acomputer-aided detection system. TISSUE DENSITY: There are scattered [...] CORE BX LT BIRAD (07/25/2024 2:41 PM POLYETHYLENE BAG MACHINE OPERATOR) LEFT BREAST STRUCTURE / Unknown Narrative Misa Desir, RTR - 07/25/2024 2:47 PM POLYETHYLENE BAG MACHINE OPERATOR This report does not contain a radiologist's interpretation. Please review associated procedure and/or operative report. Radha Steele MD MAMMO Final Result * Pathology (07/25/2024 12:00 AM POLYETHYLENE BAG MACHINE OPERATOR) PATHOLOGY [facility] ? Department of Laboratory Medicine ?[address] [facility] ?[place] [address] ? , extension [phone] ? Pathology Report ? Surgical Pathology Report Name: SARAY WHITTEN ?Specimen #: [id number] Age: 7 1960 (Age: 64) ?Location: [facility] Sex: F ?Procedure Date: 07/25/2024 Hospital #: [id number] ?Date Received: 07/26/2024 Date Reported: 07/31/2024 Provider: [...] Gross examination (when applicable) was performed at [facility], [address] [place] [address], [place] [address]. This case was interpreted and signed out at [facility], [address] [place] [address], [place] [address]. All immunohistochemical and histochemical tests were developed by and performed at [facility], [address] [place] [address]. All tests reported here have not been [...] Electronically Signed Out ? KRYSTEN MENDOZA MD [facility] 07/25/2024 07/26/2024 8:4 2 AM POLYETHYLENE BAG MACHINE OPERATOR Comment:Breast, left, needle biopsies us Radha tSeele MD PATHOLOGY/CYTOLOGY ORDERABLES Final Result [facility] [address] [place] [address], [id number] * MG FABRIZIO W ELEANOR VAZ DIGI (07/11/2024 8:19 AM POLYETHYLENE BAG MACHINE OPERATOR) Anatomical Region Laterality Modality Breast Left Mammography 07/11/2024 9:12 AM POLYETHYLENE BAG MACHINE OPERATOR Impressions 07/11/2024 9:17 AM POLYETHYLENE BAG MACHINE OPERATOR ===== IMPRESSION: ===== 1. ??Biopsy of left breast microcalcifications. Assessment: ACR BI-RADS 4 - SUSPICIOUS FINDING(S) - BIOPSY SHOULD BE CONSIDERED Recommendation: 1:Biopsy should be considered Left Comments: Findings discussed with the patient at the time of completion of exam. Mammography coordinator involved. Ordered By: NEERAJ DODGE Interpreted By: Joni Painter, 07/11/2024 9:12 AM Narrative 07/11/2024 9:17 AM POLYETHYLENE BAG MACHINE OPERATOR [facility] [place] [address] EXAMINATION: Digital left diagnostic mammogram with 3-D tomography EXAM DATE/TIME: 07/11/2024 8:09 AM REASON FOR EXAM: ??abnormal mammogram ? Daughter with BRCA positive carcinoma with double mastectomy COMPARISON: 01/11/2023. 07/03/2024 TECHNIQUE: Digital diagnostic mammography of the left breast was performed in addition to 3-D Tomosynthesis technique. This study was read with the assistance of a computer-aided detection system. TISSUE DENSITY: There are scattered areas of fibroglandular density. Findings: There are microcalcifications within the upper outer aspect of the left breast. A few are slightly pleomorphic. These are more centrally located in this grouping of microcalcifications.. There are more benign appearing, and larger, peripheral calcifications around the above-described central microcalcifications.. No dominant mass. No architectural distortion us Neeraj Dodge MD MAMMO Final Resu lt * MG SCREENING W ELEANOR ROE DIGI (07/03/2024 12:54 PM CDT) Anatomical Region Laterality Modality Breast Bilateral Mammography 07/03/2024 4:07 PM CDT Impressions 07/03/2024 4:10 PM CDT IMPRESSION: ??Indeterminate left breast microcalcifications. ?? RECOMMENDATION: ??Additional ImagingLeft OVERALL IMAGING ASSESSMENT: ACR BI-RADS 0 - INCOMPLETE: NEEDS ADDITIONAL IMAGING EVALUATION. ?? Ordered By: NEERAJ DODGE Interpreted By: Regulo Hart, 07/03/2024 4:07 PM Narrative 07/03/2024 4:10 PM CDT [facility] Imaging Center [address] [address] EXAMINATION: MG SCREENING W ELEANOR ROE DIGI ? INDICATIONS: Screening TECHNIQUE: Digital full field CC and MLO screening mammography bilaterally to include 3-D Tomosynthesis technique. This study was read with the assistance of a computer-aided detection system. HISTORY: No reported breast complaint. Family history of breast cancer in daughter at age 48-double mastectomy, BRCA. No documented personal history of breast cancer or prior breast procedure. COMPARISON: Multiple prior examinations available for comparison dating back to 04/04/2017, the most recent of 01/11/2023, 11/16/2021, and 08/08/2020. TISSUE DENSITY: There are scattered areas of fibroglandular density. FINDINGS: Interval increase in quantity of loosely clustered calcifications at the upper slightly outer middle to posterior depth left breast. Stable mammographic appearance of the right breast without suspicious microcalcification, mass, or developing asymmetry. No architectural distortion within either breast. No axillary adenopathy. us Neeraj Dodge MD MAMMO Final Resu lt * Colonoscopy (11/01/2017 12:00 AM POLYETHYLENE BAG MACHINE OPERATOR) 11/01/2017 11/01/2017 Narrative [facility] TO EPIC CONVERSION - 11/01/2017 12:00 AM POLYETHYLENE BAG MACHINE OPERATOR Documented hx of procedure Procedure Note Cheko Tucker MD - 07/09/2018 Documented hx of procedure us Generic Conversion Md [facility] GI PROCEDURE ORDERABLES Final Result [facility] TO EPIC CONVERSION from Last 3 Months or Most Recently Relevant to Health Maintenance Insurance BLUE CROSS BLUE SHIELD MEDICARE PART A Care Teams Hand Clerical Verifier Relationship Specialty Start Date End Date Neeraj Dodge MD [address] [facility] [address] [place] [address] PCP - General FAMILY PRACTICE 11/24/22 Staci Sanchez MD Nadira Powder Cutting Operator INTERVENTIONAL CARDIOLOGY 02/16/18
--- OUTSIDE RECORDS SUMMARY | 2024-08-26 07:05 | XMS_ITS | Encounter Summary ---
Author Organization [facility] Address [address] [place] [address]. [place] [address] [place] [address] Care Team Providers Care New Car Sales Manager Name Role Phone Staci Sanchez MD Unavailable [phone] Esperanza Ho MD Primary Care Provider [phone] Encounter Details Date Type Department Care Team (Latest Contact Info) Description 07/25/2024 Travel Social History Tobacco Use Types Packs/Day [...] st Contact Info) Description 11/06/2024 12:30 PM DISPLAY ASSOCIATE Appointment [facility] [address] Danny Steele MD [address] [place] [phone] 11/06/2024 1:00 PM DISPLAY ASSOCIATE Appointment [facility] [address] Danny Steele MD [address] [place] [address] [phone] documented as of this encounter Visit Diagnoses Not on filedocumented in this encounter Care Teams New Car Sales Manager Relationship Specialty Start Date End Date Esperanza Ho MD [address] [facility] [address] [place] [address] PCP - General FAMILY PRACTICE 11/24/22 Staci Sanchez MD Nadira Crown Perforator Operator INTERVENTIONAL CARDIOLOGY 02/16/18 documented as of this encounter
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
--- OUTSIDE RECORDS SUMMARY | 2024-08-26 07:05 | XMS_ITS | Encounter Summary ---
Author Organization [facility] Address [address] [place] [address]. [place] [address] [place] [address] Care Team Providers Care Hoop Maker Machine Name Role Phone Staci Sanchez MD Unavailable [phone] Esperanza Ho MD Primary Care Provider [phone] Encounter Details Date Type Department Care Team (Latest Contact Info) Description 07/03/2024 Travel Social History Tobacco Use Types Packs/Day [...] st Contact Info) Description 11/06/2024 12:30 PM CLOTH CUTTING MACHINE OPERATOR Appointment [facility] [place] [address] Danny Steele MD [address] [place] [phone] 11/06/2024 1:00 PM CLOTH CUTTING MACHINE OPERATOR Appointment [facility] [place] [address] Danny Steele MD [address] [place] [phone] documented as of this encounter Visit Diagnoses Not on filedocumented in this encounter Care Teams Hoop Maker Machine Relationship Specialty Start Date End Date Esperanza Ho MD [address] [facility] [address] [place] [address] PCP - General FAMILY PRACTICE 11/24/22 Staci Sanchez MD Nadira Low Altitude Air Defense Officer INTERVENTIONAL CARDIOLOGY 02/16/18 documented as of this encounter
--- OUTSIDE RECORDS SUMMARY | 2024-08-26 07:05 | XMS_ITS | Encounter Summary ---
Author Organization [facility] Address [facility]ly [facility]. [place], [place] [address] [place] [address] Care Team Providers Care School Inspector Name Role Phone Zane Foy MD Primary Care Provider Codi Higgins Primary Care Provider [phone] Staci Sanchez MD Unavailable [phone] Encounter Details Date Type Department Care Team (Latest Contact Info) Description 01/28/2018 Abstract [facility] Huang Colindres MD [address] [place] [address] Social History Tobacco Use Types Packs/Day Years [...] st Contact Info) Description 11/06/2024 12:30 PM STARCHMAKER Appointment [facility] [address] [facility] [place], [place] [id number] Danny Steele MD [address] [phone] 11/06/2024 1:00 PM STARCHMAKER Appointment [facility] [address] [place] [address] Danny Steele MD [address] [facility] [address] [place], [place] [phone] documented as of this encounter Visit Diagnoses Not on filedocumented in this encounter Care Teams School Inspector Relationship Specialty Start Date End Date Zane Foy MD PCP - General 08/02/16 02/02/18 Codi Winters APNP Family & Internal Medicine [address] [phone] PCP - General ADVANCED PRACTICE MOTORCYLES FINAL INSPECTOR 02/03/18 11/23/22 Staci Sanchez MD Family & Internal Medicine [address] [phone] [place] Aircraft Maintenance Engineer INTERVENTIONAL CARDIOLOGY 02/16/18 documented as of this encounter
--- OUTSIDE RECORDS SUMMARY | 2024-08-26 07:05 | XMS_ITS | Encounter Summary ---
Author Organization [facility] Address [address] [place] [address]. [place], [place] [address] [place] [address] Care Team Providers Care Lace Roller Operator Name Role Phone Staci Sanchez MD Unavailable [phone] Neeraj Dodge MD Primary Care Provider [phone] Reason for Referral * Imaging (Routine) - Pending Review Specialty Diagnoses / Procedures Referred By Contac t Referred To Contact RADIOLOGY Diagnoses Abnormal mammogram Procedures US BREAST BIRAD [facility] Neeraj Dodge MD [address] [facility] [address] [place] [address] Phone: tel: fax: Referral ID Status Reason Start Date Expiration Date V isits Requested Visits Authorized [id number] Pending Review 07/06/2024 08/05/2025 1 1 LAPPER Encounter Details Date Type Department Care Team (Latest Contact Info) Description 07/11/2024 7:56 AM GEAR LAPPER - 07/11/2024 11:59 PM GEAR LAPPER Hospital Encounter [facility] [address] [place] [address] Neeraj Dodge MD [address] [facility] [address] [place] [address] Discharge Disposition: Home or Self Care (Routine [...] Contact Info) Description 11/06/2024 12:30 PM GEAR LAPPER Appointment [facility] [place] [address] Danny Steele MD [address] [place] [id number] 11/06/2024 1:00 PM GEAR LAPPER Appointment [facility] [address] Danny Steele MD [address] [place] [address] [phone] Scheduled Orders Name Type Priority Associated Diagnoses Orde r Schedule US BREAST LT BIRAD LTD Ultrasound Routine Abnormal mammogram Once for 1 Occurrences starting 07/11/2024 until 07/11/2024 documented as of this encounter Procedures Procedure Name Priority Date/Time Associated Diagnosis Comments MG DIAG W ELEANOR LT DIGI Routine 07/11/2024 8:19 AM GEAR LAPPER Abnormal mammogram documented in this encounter Results * MG DIAG W ELEANOR LT DIGI (07/11/2024 8:19 AM GEAR LAPPER) Anatomical Region Laterality Modality Breast Left Mammography 07/11/2024 9:12 AM GEAR LAPPER Impressions 07/11/2024 9:17 AM GEAR LAPPER ===== IMPRESSION: ===== 1. ??Biopsy of left breast microcalcifications. Assessment: ACR BI-RADS 4 - SUSPICIOUS FINDING(S) - BIOPSY SHOULD BE CONSIDERED Recommendation: 1:Biopsy should be considered Left Comments: Findings discussed with the patient at the time of completion of exam. Mammography coordinator involved. Ordered By: NEERAJ DODGE Interpreted By: Joni Painter, 07/11/2024 9:12 AM Narrative 07/11/2024 9:17 AM GEAR LAPPER [facility] [address] [place] [address] EXAMINATION: Digital left diagnostic mammogram with 3-D [...] Neeraj Dodge MD MAMMO Final Resu lt documented in this encounter Visit Diagnoses Diagnosis Abnormal mammogram Abnormal mammogram, unspecified documented in this encounter Care Teams Lace Roller Operator Relationship Specialty Start Date End Date Neeraj Dodge MD [address] [facility] [address] [place] [address] PCP - General FAMILY PRACTICE 11/24/22 Staci Sanchez MD Nadira Explosives Mixer Operator INTERVENTIONAL CARDIOLOGY 02/16/18 documented as of this encounter
--- OUTSIDE RECORDS SUMMARY | 2024-08-26 07:05 | XMS_ITS | Encounter Summary ---
Author Organization [facility] Address [address] [facility] [place] [address] Care Team Providers Care Director College Name Role Phone Esperanza Ho MD Primary Care Provider + Reason for Referral * Radiology Services (Routine) - Closed Specialty Diagnoses / Procedures Referred By Contact Referred To Contact Interventional Radiology Diagnoses Foraminal stenosis of lumbar region Procedures IR NERVE BLOCK L OR S Sammy Easton MD [address] [address] [address] Referral ID Status Reason Start Date Expiration Date Visits Re quested Visits Authorized [id number] Closed 05/03/2019 08/01/2019 1 1 Reason for Visit * Radiology Services (Routine) - Closed Specialty Diagnoses / Procedures Referred By Contact Referred To Contact Interventional Radiology Diagnoses Foraminal stenosis of lumbar region Procedures IR NERVE BLOCK L OR S Sammy Easton MD [address] [facility] [address] [place] [address] [facility] [address] [address] Referral ID Status Reason Start Date Expiration Date Visits Re quested Visits Authorized [id number] Closed 05/03/2019 08/01/2019 1 1 Encounter Details Date Type Department Care Team (Late st Contact Info) Description 05/03/2019 1:38 PM CDT - 05/03/2019 11:59 PM CDT Hospital Encounter [facility] IVR [address] [place] [address] Sammy Carrero MD [address] [facility] [address] [place] [address] Kellie Chang MD [address] [place] [address] Interven Radiology Discharge Disposition: Home or Self Care Social History Tobacco Use Types Packs/Day Years Used Date Smoking Tobacco: Never Smokeless Tobacco: Never Sex and Gender Information Value Date Recorded Sex Assigned at Not on file Gender Identity Not on file Sexual Orientation Not on file documented as of this encounter Last Filed Vital Signs Vital Sign Reading Time Taken Comments Blood Pressure 145/44 05/03/2019 4:20 PM CDT Pulse 92 05/03/2019 4:20 PM CDT Temperature 36.8 ??C (98.2 ??F) 05/03/2019 2:03 PM CD T Respiratory Rate 14 05/03/2019 4:20 PM CDT Oxygen Saturation 100% 05/03/2019 4:20 PM CDT Inhaled Oxygen Concentration - - Weight - - Height - - Body Mass Index - - documented in this encounter Discharge Instructions * Discharge Instructions* Audie Christianson MD - 05/03/2019 4:41 PM CDT Images from the original note were not included. @KEVINO@ [facility] IVR [address] [facility] [address] [facility] Interventional Radiology [facility] 05/03/2019 RE: Saray Whitten [address] [place] [id number] To Whom It May Concern, Saray Whitten was seen in today, 05/03/2019. Due to medical reasons, Saray Whitten may return to work on 05/05/19. Sincerely, Audie Christianson MD [facility] Interventional Radiology documented in this encounter Medications at Time of Discharge Medication Sig Dispensed Refills Start Date End Date amitriptyline (ELAVIL) 25 MG tablet Take 25 mg by mouth at bedtime DULoxetine (CYMBALTA) 30 MG capsule Take 30 mg by mouth once daily documented as of this encounter Progress Notes * Justine Cleary RN - 05/03/2019 4:52 PM CDT Reviewed discharge instructions with patient and family, answered all questions and addressed all concerns. Patient is A&O x 3, denies complaints, no distress noted. Patient ambulated to the exitwith steady gait, reporting pain level of 0. * Justine Cleary RN - 05/03/2019 3:26 PM CDT Patient assisted to the procedure table with stand-by assist into prone position. Vital signs monitored and stabled. * Naomi Wood RN - 05/01/2019 12:59 PM CDT Spoke with pt re: arrival time and pre proc instr, verbalized understanding. No questions or concerns. [employer] documented in this encounter H&P Notes * Audie Christianson MD - 05/03/2019 2:59 PM CDT Vascular & Interventional Radiology Short Pre-Procedure Interval H&P Patient: Saray Whitten Date of visit: 05/03/2019 The patient presents to IR today for scheduled for left sided L5-S1 TF CAL[place]. The office visit note dated 04/10/[address] Holliday was reviewed. She has intermittent right and left lower back pain radiatingto her legs, however, today she admits to sharp throbbing pain in her right lower back radiating toher RLE, 9.5/10. Her left lower back pain radiates to her legs as well with similar nature of pain a nd a 7/10. No results for input(s): WBC, HGB, HCT, PLT, PLTCOUNT, PLATELET in the last 42[address] hours. No results for input(s): INR in the last 48114 hours. No results for input(s): NA, K, GLUCOSE, CREATININE, EGFR in the last 46335 hours. No results for input(s): ALB, TBILI, ALT, AST, ALKPHOS in the last 93350 hours. Assessment & Plan: 1. Pertinent labs and relevant imaging studies were reviewed. 2. Informed consent was obtained from the patient after explaining the risks, benefits, and alternatives of the procedure. Risks include but are not limited to infection, bleeding, and injury to surrounding structures. Additional risks include: temporary numbness or paralysis 3. All questions were answered to the best of my ability. 4. Planned procedure: Image guided left L5-S1 transforaminal joint injection. documented in this encounter OR Notes * Brief Op Note - Audie Christianson MD - 05/03/2019 4:41 PM CDT Vascular & Interventional Radiology Brief Post-Procedure Note Patient: Saray Whitten Attending: Kellie Chang MD Turret Lathe Operator: Audie Christianson MD Diagnosis: Low back pain with radiation to both lower extremities Procedure: Left transforaminal epidural steroid injection at L5-S1 under fluoroscopic guidance. Findings: A mixture of 1 mL betamethasone (6 mg/mL) and 1 mL 0.5% bupivacaine was injected. The patient's pain was 7/10 prior to the procedure and 0/10 after the procedure. Anesthesia: Local with 1% Lidocaine Additional medications given: None Estimated blood loss: Minimal Specimens: None Immediate complications: None Time out and final pre-procedure assessment completed immediately prior to start of procedure. See detailed procedure note with images in PACS (Synapse). documented in this encounter Plan of Treatment Not on file documented as of this encounter Procedures Procedure Name Priority Date/Time Associated Diagnosis Comments IR NERVE BLOCK L OR S UNILAT Routine 05/03/2019 4:31 PM CDT Foraminal stenosis of lumbar region documented in this encounter Results * IR NERVE BLOCK L OR S [...] AM . Sammy Carrero MD IR ORDERABLES documented in this encounter Visit Diagnoses Diagnosis Foraminal stenosis of lumbar region Spinal stenosis, lumbar region, without neurogenic claudication documented in this encounter Administered Medications Inactive Administered Medications - up to 3 most recent administrations Medication Order MAR Action Action Date Dose Rate Site betamethasone acet & sod phos (CELESTONE) injection ONCE PRN, Starting on Yulia 05/03/19 at 1603, Until Yulia 05/03/19 at 1603 $ Given 05/03/2019 4:03 PM CDT 6 mg Other see comments bupivacaine PF (MARCAINE PF) 0.5 % injection ONCE PRN, Starting on Yulia 05/03/19 at 1603, Until Yulia 05/03/19 at 1603 $ Given 05/03/2019 4:03 PM CDT 10 mL Other see comments iopamidol (ISOVUE 200) 41 % contrast ONCE PRN, Starting on Yulia 05/03/19 at 1630, Until Yulia 05/03/19 at 1630 $ Given 05/03/2019 4:30 PM CDT 1 mL Other see comments lidocaine (XYLOCAINE) 1 % injection Subcutaneous, ONCE PRN, Starting on Yulia 05/03/19 at 1604, Until Yulia 05/03/19 at 1604 $ Given 05/03/2019 4:04 PM CDT 10 mL See Comments documented in this encounter Care Teams Director College Relationship Specialty Start Date End Date Esperanza Ho MD [address] [place] [address] PCP - General 04/10/19 documented as of this encounter
--- OUTSIDE RECORDS SUMMARY | 2024-08-26 07:05 | XMS_ITS | Encounter Summary ---
Author Organization [facility] Address [address] [facility] [place] [address] Care Team Providers Care Senior Occupational Therapist Name Role Phone Esperanza Ho MD Primary Care Provider + Reason for Visit * Reason Comments Pain Back Encounter Details Date Type Department Care Team (Late st Contact Info) Description 04/10/2019 2:45 PM CDT Office Visit [facility] - Orthopedics [address] [facility] [place] [address] Sammy Carrero MD [address] [facility] [address] [place] [address] Spondylolisthesis at L4-L5 level (Primary Dx); Foraminal stenosis of lumbar region; Lumbar degenerative disc disease Social History Tobacco Use Types Packs/Day Years Used Date Smoking Tobacco: Never Smokeless Tobacco: Never Sex and Gender Information Value Date Recorded Sex Assigned at Not on file Gender Identity Not on file Sexual Orientation Not on file documented as of this encounter Last Filed Vital Signs Vital Sign Reading Time Taken Comments Blood Pressure 154/108 04/10/2019 1:47 PM CDT Pulse 91 04/10/2019 1:47 PM CDT Temperature 36.7 ??C (98.1 ??F) 04/10/2019 1:47 PM CD T Respiratory Rate 18 04/10/2019 1:47 PM CDT Oxygen Saturation 100% 04/10/2019 1:47 PM CDT Inhaled Oxygen Concentration - - Weight 94.3 kg (207 lb 14.4 oz) 04/10/2019 1:47 PM CDT Height 167.6 cm (5' 6 ) 04/10/2019 1:47 PM CDT Body Mass Index 33.56 04/10/2019 1:47 PM CDT documented in this encounter Patient Instructions * Patient Instructions* Bernard Hayes RN - 04/10/2019 2:55 PM CDT [facility] Department of Orthopaedic Surgery Orthopaedic Spine Surgery Clinic Discharge Form Saray Whitten 04/10/2019 Follow up:1-2 weeks after Left L5/S1 Epidural Steroid injection. [facility] Interventional Radiology will contact you to schedule the injection. It may take up to a week for you to be contacted for scheduling. If you are not contacted within a week please contact [facility] IR at [phone] to check the status. Once you know the date of your injection call [phone] (Option 1) to schedule a follow up with Dr. Carrero for 1-2 weeks after the date of the injection. Please contact our clinic call center at if you need to schedule or change an appointment. For medical emergencies please call [phone]. Please contact Giacomo Hayes RN at or through [employer] if you have any further questions or concerns. [facility] Orthopaedic office contact information: [facility] [address] [place] [id number] [place] [address] [place] [address], [facility] [address] [address] April 10, 2019 To Whom It May Concern: Please use this letter to document that Saray Whitten, : 1960, was in to see Sammy Carrero MD on 04/10/2019. Thank you. Sincerely, Sammy Carrero MD [facility] ORTHO [facility]AT[facility] documented in this encounter Progress Notes * Montana Holliday IV, MD - 04/10/2019 2:[address] [facility] Orthopedic Spine Surgery Clinic Note Saray Whitten, 59 year old, female : 1960 CSN: [id number] Primary Care Physician: Esperanza Ho MD HPI Date of this clinic visit: 04/10/2019 This is a 59 year old female who is here for new patient clinic appointment, regarding low back pain of years. Pain is located in the lower back and is described as achy with radiation to buttock andposterior leg pain. Patient does have pain at night. Patient is able to walk/stand for less than 10minutes and less than 100 feet without pain. For pain control the patient has used duloxetine and amitriptyline with minimal relief. Rest and leaning forward makes it better and sitting, walking and standing makes it worse. They have not participated in PT in the past. They have not received steroid injections in the past. Denies bowel/bladder retention or incontinence. ROS otherwise negative. Smoking status: non smoker Pertinent Background Information: Prior orthopedic injuries/surgeries: No Diabetic: No Smoking history: No Objective BP 154/108 Pulse 91 Temp 98.1 ??F (36.7 ??C) Resp 18 Ht 1.676 m (5' 6 ) Wt 94.3 kg (207 lb 14.4 oz)SpO2 100% BMI 33.56 kg/m2 PMHx No past medical history on file. PSHx No past surgical history on file. Social Hx Social History Substance Use Topics ??? Smoking status: Never Smoker ??? Smokeless tobacco: Never Used ??? Alcohol use Not on file Family Hx family history is not on file. Allergies No Known Allergies Medications Current Outpatient Prescriptions Medication ??? amitriptyline (ELAVIL) 25 MG tablet ??? DULoxetine (CYMBALTA) 30 MG capsule No current facility-administered medications for this visit. Review of Systems - Bowel/Bladder incontinence or retention: denies - Numbness/paresthesias to extremities: bilateral legs from knees down, bilateral fingers - Hand clumsiness/loss of fine motor skills: endorses - Balance problems: endorses Review of all other systems was negative. Physical Exam General appearance: awake, cooperative, NAD Neck: -Tenderness to palpation: present, midline lower cervical Back: -Tenderness to palpation: present, lumbar midline Posture - Erect posture with no cervical thrust, list, or torticollis noted Bilateral Upper Extremity: - Motor: Shoulder Abduction (C5) 5/5 Elbow Extension (C7) [...] Sensation: deficit noted - blunted sensation of left leg more than right on entire lower extremity - Straight Leg Raise: positive left - Clonus: absent - Reflexes: Knee Jerk: Normal Achilles: Normal Other findings: -Oswestry Score: 62 Gait - Walks with reciprocal heel/toe gait. Able to demonstrate heel walk, toe walk, and tandem gait without difficulty. Imaging - MRI lumbar spine reviewed. L5/S1 disc desiccation with left foraminal stenosis, L2/3 bilateral mild foraminal stenosis, L4/5 central stenosis and foraminal stenosis on the right, L4/5 spondylolisthesis. Multilevel disc degeneration worst at L4/5 and L5/S1 Assessment/Plan: 59 year old female with L4/5 spondylolisthesis and lumbar stenosis - Patient was counseled to the nature of their diagnosis and demonstrated understanding - Recommend weight loss of 50 pound - Recommend epidural steroid injection Left L5/S1 - Follow up in after imaging - Follow up Imaging: none Montana Holliday IV, MD 04/10/2019 2:35 PM Attending Physician Supervisory Note I personally interviewed and examined the patient and agree with the doctor above. Sammy Carrero MD * FaustinCyrus marx - 04/10/2019 1:51 PM CDT Chief Complaint: Chief Complaint Patient presents with ??? Pain Back BP 154/108 Pulse 91 Temp 98.1 ??F (36.7 ??C) Resp 18 Ht 1.676 m (5' 6 ) Wt 94.3 kg (207 lb 14.4 oz)SpO2 100% BMI 33.56 kg/m2 documented in this encounter Plan of Treatment Not on file documented as of this encounter Visit Diagnoses Diagnosis Spondylolisthesis at L4-L5 level- Primary Foraminal stenosis of lumbar region Spinal stenosis, lumbar region, without neurogenic claudication Lumbar degenerative disc disease Degeneration of lumbar or lumbosacral intervertebral disc documented in this encounter Care Teams Senior Occupational Therapist Relationship Specialty Start Date End Date Esperanza Ho MD [address] [place] [address] PCP - General 04/10/19 documented as of this encounter
--- OUTSIDE RECORDS SUMMARY | 2024-08-26 07:05 | XMS_ITS | Encounter Summary ---
Author Organization [facility] Address [address] [place] [address]. [place], [place] [id number] [place] [address] Care Team Providers Care Assembly Stock Supervisor Name Role Phone Staci Sanchez MD Unavailable [phone] Neeraj Dodge MD Primary Care Provider [phone] Reason for Referral * Imaging (Routine) - New Request Specialty Diagnoses / Procedures Referred By Amy amaro Referred To Contact RADIOLOGY Diagnoses Encounter for screening mammogram for malignant neoplasm of breast Procedures MG SCREENING W Neeraj Barfield MD [address] [facility] [address] [place] [phone] Phone: tel: fax: Referral ID Status Reason Start Date Expiration Date V isits Requested Visits Authorized [id number] New Request 06/14/2024 08/14/2025 1 1 Reason for Visit * Imaging (Routine) - New Request Specialty Diagnoses / Procedures Referred By Amy amaro Referred To Contact RADIOLOGY Diagnoses Encounter for screening mammogram for malignant neoplasm of breast Procedures MG SCREENING W Neeraj Barfield MD [address] [facility] [address] [place] [address] Phone: tel: fax: Referral ID Status Reason Start Date Expiration Date V isits Requested Visits Authorized [id number] New Request 06/14/2024 08/14/2025 1 1 Encounter Details Date Type Department Care Team (Latest Contact Info) Description 07/03/2024 12:39 PM CDT - 07/03/2024 11:59 PM CDT Hospital Encounter [facility] Imaging Center Mammography [address] [place] [address] Neeraj Dodge MD [address] [place] [address] Vini Jones MD [address] [facility] [address] [place], [place] [address] Discharge Disposition: Home or Self Care (Routine [...] st Contact Info) Description 11/06/2024 12:30 PM DOCTOR ASSISTANT Appointment [facility] [address] Danny Steele MD [address] [facility] [address] [place] [address] 11/06/2024 1:00 PM DOCTOR ASSISTANT Appointment [facility] [address] Danny Steele MD [address] [facility] [address] [place], [place] [phone] documented as of this encounter Procedures Procedure [...] 4:07 PM Narrative 07/03/2024 4:10 PM CDT [facility] Imaging Center [address] [address] EXAMINATION: MG SCREENING W ELEANOR ROE DIGI [...] distortion within either breast. No axillary adenopathy. Neeraj Dodge MD MAMMO Final Resu lt documented in this encounter Visit Diagnoses Diagnosis Encounter for screening mammogram for malignant neoplasm of breast Other screening mammogram documented in this encounter Care Teams Assembly Stock Supervisor Relationship Specialty Start Date End Date Neeraj Dodge MD [address] [facility] [address] [place] [address] PCP - General FAMILY PRACTICE 11/24/22 Staci Sanchez MD Nadira Instructional Technology Teacher INTERVENTIONAL CARDIOLOGY 02/16/18 documented as of this encounter
--- OUTSIDE RECORDS SUMMARY | 2024-08-26 07:05 | XMS_ITS | Encounter Summary ---
Author Organization [facility] Address [address] [place] [address]. [place] [address] [place] [address] Care Team Providers Care Drug Inspector Name Role Phone Zane Foy MD Primary Care Provider Codi Higgins Primary Care Provider [phone] Staci Sanchez MD Unavailable [phone] Encounter Details Date Type Department Care Team (Latest Contact Info) Description 01/24/2018 Abstract [facility] Medical Group Social History Tobacco Use [...] st Contact Info) Description 11/06/2024 12:30 PM TRAVEL MED SURG RN Appointment [facility] [place], [place] [address] Danny Steele MD [facility] [address] [address] 11/06/2024 1:00 PM TRAVEL MED SURG RN Appointment [facility] [place], [place] [phone] Danny Steele MD [facility] [address] [address] documented as of this encounter Visit Diagnoses Not on filedocumented in this encounter Care Teams Drug Inspector Relationship Specialty Start Date End Date Zane Foy MD PCP - General 08/02/16 02/02/18 Codi Winters APNP Family & Internal Medicine [address] [phone] PCP - General [facility] [place] PHP DEVELOPER 02/03/18 11/23/22 Staci Sanchez MD Family & Internal [address] [phone] Nadira Back Panel Padder INTERVENTIONAL CARDIOLOGY 02/16/18 documented as of this encounter
--- OUTSIDE RECORDS SUMMARY | 2024-08-26 07:05 | XMS_ITS | Encounter Summary ---
Author Organization [facility] Address [address] [place] [address]. [place] [address] [place] [address] Care Team Providers Care Leaf Fat Scraper Name Role Phone VianeyCodi powers JT Primary Care Provider [phone] Staci Sanchez MD Unavailable [phone] Reason for Visit * Reason Onset Date Comments Results 04/06/2018 Encounter Details Date Type Department Care Team (Late st Contact Info) Description 04/06/2018 Telephone [facility] [place] [id number] [place] [address] Results Social History Tobacco Use Types Packs/Day Years [...] as of this encounter Progress Notes * Charo Steele RN - 04/06/2018 4:28 PM CDT Images from the original note were not included. MD Charo Hernandez RN ? Inform patient that her stress test is low probability for coronary ischemia. Follow up annually Called patient. Informed her of the above per Dr. Sanchez. Patient verbalized understanding and has no further questions or concerns. documented in this encounter Plan of Treatment Upcoming Encounters Date Type Department Care Team (Late st Contact Info) Description 11/06/2024 12:30 PM SWIMMING COACH Appointment [facility] [place] [address] Danny Steele MD [address] [place] [address] [phone] 11/06/2024 1:00 PM SWIMMING COACH Appointment [facility] [place] [address] Danny Steele MD [address] [place] [address] [phone] documented as of this encounter Visit Diagnoses Not on filedocumented in this encounter Care Teams Leaf Fat Scraper Relationship Specialty Start Date End Date Codi Winters APNP Family & Internal Medicine [address] [phone] PCP - General ADVANCED PRACTICE STRATEGIC SOURCING MANAGER 02/03/18 11/23/22 Staci Sanchez MD Family & Internal Medicine [address] [address] Nadira Lens Coating Technician INTERVENTIONAL CARDIOLOGY 02/16/18 documented as of this encounter
--- OUTSIDE RECORDS SUMMARY | 2024-08-26 07:05 | XMS_ITS | Encounter Summary ---
Author Organization [facility] Address [address] [place] [address]. [place], [place] [id number] [place] [address] Care Team Providers Care Field Assembly Supervisor Name Role Phone Zane Foy MD Primary Care Provider Codi Higgins Primary Care Provider [phone] Staci Sanchez MD Unavailable [phone] Encounter Details Date Type Department Care Team (Latest Contact Info) Description 12/09/2017 Abstract [facility] , Generic ConversionMD Social History Tobacco Use Types Packs/Day Years [...] Notes * Generic Conversion MD Raquel - 12/09/2017 12:58 PM CDT Message Recorded as Task Date: 12/09/2017 12:40 PM, Created By: Sherry Falk Task Name: Medical Complaint Callback Assigned To: [facility] Nurse Team Regarding Patient: Saray Whitten, Status: Active Comment: Sherry Falk - 09 Dec 2017 12:40 PM TASK CREATED Caller: Self; Medical Complaint; Pt returning Marianne's call. Will be at work [phone] if calling back after 130. Otherwise will be on660# Message: patient notified -sjs Signatures Electronically signed by : Marianne Dietz MA; Dec 09 2017 12:58PM LAST IRONER (Author) * Cheko Fischer Md, MD - 12/09/2017 12:43 PM CDT Message Recorded as Task Date: 12/09/2017 12:40 PM, Created By: Sherry Falk Task Name: Medical Complaint Callback Assigned To: [facility] Nurse Team Regarding Patient: Saray Whitten, Status: Active Comment: Sherry Falk - 09 Dec 2017 12:40 PM TASK CREATED Caller: Self; Medical Complaint; Pt returning Marianne's call. Will be at work [phone] if calling back after 130. Otherwise will be on660# Message: patient notified -sjs Signatures Electronically signed by : Marianne Dietz MA; Dec 09 2017 12:44PM LAST IRONER (Author) documented in this encounter Plan of Treatment Upcoming Encounters Date Type Department Care Team (Late st Contact Info) Description 11/06/2024 12:30 PM LAST IRONER Appointment [facility] [place], [place] [phone] Danny Steele MD [address] [place] [address] [phone] 11/06/2024 1:00 PM LAST IRONER Appointment [facility] [place], [place] [address] Danny Steele MD [address] [place] [address] [phone] documented as of this encounter Visit Diagnoses Not on filedocumented in this encounter Care Teams Field Assembly Supervisor Relationship Specialty Start Date End Date Zane Foy MD PCP - General 08/02/16 02/02/18 Codi Winters APNP Family & Internal Medicine [address] [address] PCP - General ADVANCED PRACTICE TALENT ACQUISITION ADMINISTRATOR 02/03/18 11/23/22 Staci Sanchez MD Family & Internal Medicine [address] [phone] Nadira Warehouse Delivery Driver INTERVENTIONAL CARDIOLOGY 02/16/18 documented as of this encounter
--- OUTSIDE RECORDS SUMMARY | 2024-08-26 07:05 | XMS_ITS | Encounter Summary ---
Author Organization [facility] Address [address] [place] [address]. [place] [address] [place] [address] Care Team Providers Care Relief Operator Name Role Phone Staci Sanchez MD Unavailable [phone] Esperanza Ho MD Primary Care Provider [phone] Encounter Details Date Type Department Care Team (Latest Contact Info) Description 01/11/2023 Travel Social History Tobacco Use Types Packs/Day [...] PM CDT documented as of this encounter Plan of Treatment Upcoming Encounters Date Type Department Care Team (Late st Contact Info) Description 11/06/2024 12:30 PM DIGITAL PRODUCT MANAGER Appointment [facility] [place], [place] [phone] Danny Steele MD [address] [place] [address] [place] [address] 11/06/2024 1:00 PM DIGITAL PRODUCT MANAGER Appointment [facility] [place] [address] Danny Steele MD [address] [place] [address] documented as of this encounter Visit Diagnoses Not on filedocumented in this encounter Care Teams Relief Operator Relationship Specialty Start Date End Date Esperanza Ho MD [address] [facility] [address] [place] [address] PCP - General FAMILY PRACTICE 11/24/22 Staci Sanchez MD [place] Sole Molding Machine Operator INTERVENTIONAL CARDIOLOGY 02/16/18 documented as of this encounter
--- OUTSIDE RECORDS SUMMARY | 2024-08-26 07:05 | XMS_ITS | Encounter Summary ---
Author Organization [facility] Address [address] [place] [address]. [place], [place] [phone] [place] [address] Care Team Providers Care Master Control Operator Name Role Phone VianeyCodi Lex WATERS Primary Care Provider [phone] Staci Sanchez MD Unavailable [phone] Encounter Details Date Type Department Care Team (Latest Contact Info) Description 03/13/2018 Abstract [facility] Social History Tobacco Use Types [...] st Contact Info) Description 11/06/2024 12:30 PM COLLECTION CARD CLERK [facility]ointment [facility] [address] Danny Steele MD [address] [place] [phone] 11/06/2024 1:00 PM COLLECTION CARD CLERK [facility]ointment [facility] [place] [address] Danny Steele MD [address] [place] [address] [phone] documented as of this encounter Visit Diagnoses Not on filedocumented in this encounter Care Teams Master Control Operator Relationship Specialty Start Date End Date Codi Winters APNP Family & Internal Medicine [address] [address] PCP - General ADVANCED PRACTICE MULTICRAFT OPERATOR 02/03/18 11/23/22 Staci Sanchez MD Family & Internal [address] [address] Nadira Portuguese Tutor INTERVENTIONAL CARDIOLOGY 02/16/18 documented as of this encounter
--- OUTSIDE RECORDS SUMMARY | 2024-08-26 07:05 | XMS_ITS | Encounter Summary ---
Author Organization [facility] Address [address] [place] [address]. [place], [place] [address] [place] [address] Care Team Providers Care Public Policy Mediator Name Role Phone VianeyCodi Lex WATERS Primary Care Provider [phone] Staci Sanchez MD Unavailable [phone] Reason for Referral * Diagnostic Lab (Routine) - Closed Specialty Diagnoses / Procedures Referred By Contac t Referred To Contact CARDIOLOGY DIAGNOSTICS Diagnoses Atypical chest pain Angina effort (CMS/HCC) Procedures STRESS TEST ONLY, EXERCISE (54672) CARDIAC STRESS TST,DR SUPERV ONLY CARDIAC STRESS TST,INTERP/REPT ONLY Staci Sanchez MD Family & Internal Medicine [address] [address] Phone: tel: fax: [facility] [place] [address] Phone: tel: Referral ID Status Reason Start Date Expiration Date Visits Re quested Visits Authorized [id number] Closed 03/13/2018 04/13/2019 1 1 Reason for Visit * Reason Comments Chest Pain New Consult Shortness Of Breath Encounter Details Date Type Department Care Team (Latest Contact Info) Description 03/13/2018 3:00 PM CDT Office Visit [facility] [place] [facility], [address] [address] Staci Sanchez MD [address] [place] [id number] Chest Pain (New Consult); Shortness Of Breath Social History Tobacco Use Types Packs/Day Years [...] Pulse 72 03/13/2018 3:12 PM CDT Temperature - - Respiratory Rate - - Oxygen Saturation 96% 03/13/2018 3:12 PM CDT Inhaled Oxygen Concentration - - Weight 95.7 kg (211 lb) 03/13/2018 3:12 PM CDT Height 168.9 cm (5' 6.5 ) 03/13/2018 3:12 PM CDT Body Mass Index 33.55 03/13/2018 3:12 PM CDT documented in this encounter Patient Instructions * Patient Instructions* Sherry Calles - 03/13/2018 3:00 PM CDT Images from the original note were not included. Patient Education Controlling Your Blood Pressure Through Lifestyle The Basics Written by the doctors and editors at [facility] What does my lifestyle have to do with my blood pressure???--??The things you do and the foods you eat have a big effect on your blood pressure and your overall health. Following the right lifestyle can: ?Lower your blood pressure or keep you from getting high blood pressure in the first place ?Reduce your need for blood pressure medicines ?Make medicines for high blood pressure work better, if you do take them ?Lower the chances that you'll have a heart attack or stroke, or develop kidney disease Which lifestyle choices will help lower my blood pressure???--??Here's what you can do: ?Lose weight (if you are overweight) ?Choose a diet rich in fruits, vegetables, and low-fat dairy products, and low in meats, sweets, and refined grains ?Eat less salt (sodium) ?Do something active for at least 30 minutes a day on most days of the week ?Limit the amount of alcohol you drink If you have high blood pressure, it's also very important to quit smoking (if you smoke). Quitting smoking might not bring your blood pressure down. But it will lower the chances that you'll have a heart attack or stroke, and it will help you feel better and live longer. Start low and go slow??--??The changes listed above might sound like a lot, but don't worry. You don't have to change everything all at once. The ha to improving your lifestyle is to start low and go slow. Choose 1 small, specific thing to change and try doing it for a while. If it works for you, keep doing it until it becomes a habit. If it doesn't, don't give up. Choose something else to change and see how that goes. Let's say, for example, that you would like to improve your diet. If you're the type of person who eats cheeseburgers and Swedish fries all the time, you can't switch to eating just salads from 1 day to the next. When people try to make changes like that, they often fail. Then they feel frustrated and tend to give up. So instead of trying to change everything about your diet in 1 day, change 1 or 2 small things about your diet and give yourself time to get used to those changes. For instance, keep the cheeseburger but give up the Swedish fries. Or eat the same things but cut your portions in half. As you find things that you are able to change and stick with, keep adding new changes. In time, you will see that you can actually change a lot. You just have to get used to the changes slowly. Lose weight??--??When people think about losing weight, they sometimes make it more complicated than it really is. To lose weight, you have to either eat less or move more. If you do both of those things, it's even better. But there is no single weight-loss diet or activity that's better than any other. When it comes to weight loss, the most effective plan is the one that you'll stick with. Improve your diet??--??There is no single diet that is right for everyone. But in general, a healthy diet can include: ?Lots of fruits, vegetables, and whole grains ?Some beans, peas, lentils, chickpeas, and similar foods ?Some nuts, such as walnuts, almonds, and peanuts ?Fat-free or low-fat milk and milk products ?Some fish To have a healthy diet, it's also important to limit or avoid sugar, sweets, meats, and refined grains. (Refined grains are found in white bread, white rice, most forms of pasta, and most packaged snack foods.) Reduce salt??--??Many people think that eating a low-sodium diet means avoiding the salt shaker andnot adding salt when cooking. The truth is, not adding salt at the table or when you cook will onlyhelp a little. Almost all of the sodium you eat is already in the food you buy at the grocery storeor at restaurants (figure 1). The most important thing you can do to cut down on sodium is to eat less processed food. That meansthat you should avoid most foods that are sold in cans, boxes, jars, and bags. You should also eat in restaurants less often. To reduce the amount of sodium you get, buy fresh or fresh-frozen fruits, vegetables, and meats. (Fresh-frozen foods have had nothing added to them before freezing.) Then you can make meals at home, from scratch, with these ingredients. As with the other changes, don't try to cut out salt all at once. Instead, choose 1 or 2 foods thathave a lot of sodium and try to replace them with low- sodium choices. When you get used to those low-sodium options, find another food or 2 to change. Then keep going, until all the foods you eat aresodium-free or low in sodium. Become more active??--??If you want to be more active, you don't have to go to the gym or get all sweaty. It is possible to increase your activity level while doing everyday things you enjoy. Walking, gardening, and dancing are just a few of the things that you might try. As with all the other changes, the ha is not to do too much too fast. If you don't do any activity now, start by walking for just a few minutes every other day. Do that for a few weeks. If you stick with it, try doing it for longer. But if you find that you don't like walking, try a different activity. Drink less alcohol??--??If you are a woman, do not have more than 1 standard drink of alcohol a day. If you are a man, do not have more than 2. A standard drink is: ?A can or bottle that has 12 ounces of beer ?A glass that has 5 ounces of wine ?A shot that has 1.5 ounces of whiskey Where should I start???--??If you want to improve your lifestyle, start by making the changes that you think would be easiest for you. If you used to exercise and just got out of the habit, maybe it would be easy for you to start exercising again. Or if you actually like cooking meals from scratch,maybe the first thing you should focus on is eating home-cooked meals that are low in sodium. Whatever you tackle first, choose specific, realistic goals, and give yourself a deadline. For example, do not decide that you are going to exercise more. Instead, decide that you are going to walkfor 10 minutes on Tuesday, Tuesday, and Tuesday, and that you are going to do this for the next 2 weeks. When lifestyle changes are too general, people have a hard time following through. Now go. You can do it! All topics are updated as new evidence becomes available and our peer review process is complete. This topic retrieved from [employer] on: Sep 08, 2017. Topic 59534 Version 5.0 Release: 25.6.2-122 - C26.3 ?2018??[employer]. and/or its affiliates.??All rights reserved. figure 1: Sources of sodium in your diet Graphic 63206 Version 2.0 Consumer Information Use and Disclaimer This information is not specific medical advice and does not replace information you receive from your health care provider. This is only a brief summary of general information. It does NOT include all information about conditions, illnesses, injuries, tests, procedures, treatments, therapies, discharge instructions or life-style choices that may apply to you. You must talk with your health care provider for complete information about your health and treatment options. This information should not be used to decide whether or not to accept your health care provider's advice, instructions or recommendations. Only your health care provider has the knowledge and training to provide advice that is right for you.The use of [employer] content is governed by the [employer] Terms of Use. ??2018 [employer]. All rights reserved. Copyright ?2018??[employer]. and/or its affiliates.??All rights reserved. documented in this encounter Progress Notes * Staci Sanchez MD - 03/13/2018 3:00 PM CDT Reason for Visit: Chest Pain (New Consult) and Shortness Of Breath History of Present Illness: Recommendations and Plan: Medications: Current Outpatient Prescriptions: ??? multivitamin tablet, Take 1 tablet by mouth daily., Disp: , Rfl: No Known Allergies Past Medical History: Diagnosis Date ??? Atypical chest pain ??? Chronic daily headache ??? SERRATO (dyspnea on exertion) ??? Dyslipidemia ??? Sarcoidosis Past Surgical History: Procedure Laterality Date ??? OTHER PROCEDURE BREAST SURGERY YEARS AGO Social History Social History ??? Marital status: Legally Spouse name: N/A ??? Number of children: 2 ??? Years of education: N/A Social History Main Topics ??? Smoking status: Former Smoker ??? Smokeless tobacco: Never Used Comment: QUIT YEARS AGO ??? Alcohol use No ??? Drug use: No ??? Sexual activity: Not Asked Other Topics Concern ??? None Social History Narrative Family History Problem Relation Age of Onset ??? CABG Mother Family Status Relation Status ??? Mother at age 80 ??? Father at age 63 Review of Systems Constitutional: Negative for recent unintentional weight gain, recent unintentional weight loss andnew or significant fatigue. HENT: Negative for new or significant hearing loss. Eyes: Negative for blurred vision and double vision. Respiratory: Positive for shortness of breath. Negative for cough and snoring. Cardiovascular: See HPI Positive for chest pain (slight) and palpitations. Gastrointestinal: Negative for blood in stool and melena. Genitourinary: Negative for dysuria. Musculoskeletal: Negative for myalgias and new or worsening joint stiffness/pain. Skin: Negative for rash. Neurological: Positive for tingling/numbness. Negative for focal weakness. Endo/Heme/Allergies: Negative for new or significant bruising/bleeding and polydipsia. Psychiatric/Behavioral: Negative for depression and new or significant memory loss. Filed Vitals: 03/13/18 1512 BP: 130/82 Pulse: 72 SpO2: 96% Weight: 95.7 kg (211 lb) Height: 5' 6.5 (1.689 m) Physical Exam Constitutional: She is oriented to person, place, and time. She appears well- developed and well-nourished. No distress. HENT: Nose: No mucosal edema. Mouth/Throat: Oropharynx is clear and moist and mucous membranes are normal. No oropharyngeal exudate. Neck: Neck supple. No JVD present. Carotid bruit is not present. Cardiovascular: Normal rate, regular rhythm, S1 normal, S2 normal and intact distal pulses. No extrasystoles are present. Exam reveals no gallop. No murmur heard. Pulmonary/Chest: Effort normal and breath sounds normal. No respiratory distress. Abdominal: She exhibits no mass. There is no hepatosplenomegaly. There is no tenderness. Musculoskeletal: She exhibits no deformity. Neurological: She is alert and oriented to person, place, and time. Skin: Skin is warm and dry. No erythema. Psychiatric: She has a normal mood and affect. Her behavior is normal. Thought content normal. CHOLESTEROL Date Value Ref Range Status 10/20/2017 200 (H) <200 MG/DL Final TRIGLYCERIDE Date Value Ref Range Status 10/20/2017 50 <150 MG/DL Final HDL Date Value Ref Range Status 10/20/2017 70 >40.0 MG/DL Final LDL (CALCULATED) Date Value Ref Range Status 10/20/2017 120.0 (H) <100 MG/L Final SODIUM Date Value Ref Range Status 10/20/2017 144 136 - 145 MMOL/L Final POTASSIUM Date Value Ref Range Status 10/20/2017 4.4 3.5 - 5.1 MMOL/L Final CHLORIDE Date Value Ref Range Status 10/20/2017 109 (H) 100 - 108 MMOL/L Final CO2 Date Value Ref Range Status 10/20/2017 27.9 21 - 32 MMOL/L Final BUN Date Value Ref Range Status 10/20/2017 13 7 - 18 MG/DL Final CREATININE Date Value Ref Range Status 10/20/2017 0.64 0.55 - 1.02 MG/DL Final CALCIUM Date Value Ref Range Status 10/20/2017 9.2 8.5 - 10.1 MG/DL Final GLUCOSE Date Value Ref Range Status 10/20/2017 82 70 - 99 MG/DL Final ANION GAP Date Value Ref Range Status 10/20/2017 11.5 8 - 20 MMOL/L Final TOTAL PROTEIN Date Value Ref Range Status 10/20/2017 7.9 6.4 - 8.2 G/DL Final ALBUMIN Date Value Ref Range Status 10/20/2017 3.8 3.4 - 5.0 G/DL Final AST Date Value Ref Range Status 10/20/2017 15 15 - 37 U/L Final ALT Date Value Ref Range Status 10/20/2017 21 14 - 55 U/L Final Diagnoses/Impression: 1. Atypical chest pain ELECTROCARDIOGRAM (NON MIDMARK ACQUIRED) Referring Provider: Codi Winters PCP: JT Fernando * Staci Sanchez MD - 03/13/2018 3:00 PM CDT HISTORY OF PRESENT ILLNESS: The patient is a pleasant lady who is here to establish care with me. She experienced chest discomfort that is substernal in location and would last a minute or 2 at a time, and would happen at least once or twice a week, not associated with any other symptoms. This occurs with emotional stress as well as exertion. Rest is the only alleviating factor. She has never hadit for more than 2-3 minutes at a time. She is seeking attention concerning this matter. She deniesany heart failure symptoms including orthopnea, PND as well as leg edema. She denies chest pain on exertion that would last for more than a couple of minutes. This has not slowed her down at all. She denies intermittent claudication symptoms. She denies open wounds or ulcers in her legs. She denies any leg edema. She denies neurological symptoms including amaurosis fugax or TIAs. IMPRESSION AND PLAN: This is a pleasant lady who has the following conditions: 1. Chest pain. -- Her risk factors include age, postmenopausal status, and ethnicity. I will go ahead and proceed with treadmill stress testing for risk stratification and I gave her a prescription for Nitroglycerin. 2. For full risk profile we will go ahead and obtain her lipid panel as well as A1c from your office. 3. For followup, I will see her on an annual basis or sooner depending on the findings of her stress testing. documented in this encounter Plan of Treatment Upcoming Encounters Date Type Department Care Team (Late st Contact Info) Description 11/06/2024 12:30 PM FACILITY MAINTENANCE TECHNICIAN Appointment [facility] [place] [address] Danny Steele MD [address] [place] [phone] 11/06/2024 1:00 PM FACILITY MAINTENANCE TECHNICIAN Appointment [facility] [place], [place] [address] Danny Steele MD [address] [place] [phone] Scheduled Orders Name Type Priority Associated Diagnoses Orde r Schedule STRESS TEST ONLY, EXERCISE (31276) Cardiac Services Routine Atypical chest pain Angina effort (HCC) Ordered: 03/13/2018 documented as of this encounter Procedures Procedure Name Priority Date/Time Associated Diagnosis Comments ELECTROCARDIOGRAM (NON MIDMA RK ACQUIRED) Routine 03/13/2018 Atypical chest pain documented in this encounter Results * ELECTROCARDIOGRAM (03/13/2018) us Staci Sanchez MD PROCEDURES-ORDERABLE NO RUFUS RGE Final Result documented in this encounter Visit Diagnoses Diagnosis Atypical chest pain- Primary Other chest pain Angina effort (CMS/HCC) Other and unspecified angina pectoris documented in this encounter Care Teams Public Policy Mediator Relationship Specialty Start Date End Date Codi Winters APNP Family & Internal Medicine [address] [address] PCP - General [facility] CH[facility]DREN'S AUTHOR 02/03/18 11/23/22 Staci Sanchez MD Family & Internal Medicine [address] [address] [place] Nurse Assistant INTERVENTIONAL CARDIOLOGY 02/16/18 documented as of this encounter
--- OUTSIDE RECORDS SUMMARY | 2024-08-26 07:06 | XMS_ITS | Encounter Summary ---
Author Organization [facility] Address [facility] [facility]. [place], [place] [address] [place] [address] Care Team Providers Care Advanced Practice Nurse Psychotherapist Name Role Phone Zane Foy MD Primary Care Provider Codi Higgins Primary Care Provider [phone] Staci Sanchez MD Unavailable [phone] Encounter Details Date Type Department Care Team (Latest Contact Info) Description 11/01/2017 Abstract [facility] Vilma Pulliam MD [address] [facility] [address] [place] [address] Social History Tobacco Use Types Packs/Day Years [...] st Contact Info) Description 11/06/2024 12:30 PM CYBER DEFENSE ANALYST Appointment [facility] [address] [place], [place] [address] Danny Steele MD [address] [facility] [address] [place] [phone] 11/06/2024 1:00 PM CYBER DEFENSE ANALYST Appointment [facility] [address] [facility] [place] [address] Danny Steele MD [address] [facility] [address] [place], [place] [address] documented as of this encounter Procedures Procedure Name Priority Date/Time Associated Diagnosis Comments TISSUE EXAM BY PATHOLOGIST Routine 11/01/2017 12:00 AM CYBER DEFENSE ANALYST documented in this encounter Results * TISSUE EXAM BY PATHOLOGIST (11/01/2017 12:00 AM CYBER DEFENSE ANALYST) PATHOLOGY [facility] - ? Department of Pathology ? [address] [facility]. ? [place] ??[address] ? [id number] ? Pathology Report ? Name: SARAY WHITTEN ? Specimen #: [id number] Age: 7 1960 (Age: 57) ? Location: [facility] Sex: F ? Procedure Date: 11/01/2017 Hospital #: [id number] ? Date Received: 11/01/2017 Date Reported: 11/02/2017 Provider: VILMA PULLIAM Postoperative Diagnosis: Polyp x 2 Gross Description: The specimen is received in formalin (placed in formalin at 1002), labeled with the patient's name (Saray Whitten), date and sigmoid polyps removed with forceps. ??The specimen consists of two pieces of soft light david-brown tissue each measuring 0.2 cm, which are filtered and submitted in toto in one cassette. Microscopic Description: The microscopic examination supports the above diagnosis. FINAL PATHOLOGIC DIAGNOSIS: COLON, RECTOSIGMOID, BIOPSY: - ? POLYP, HYPERPLASTIC ?? PORSCHE ZENDEJAS ??Pathologist sbb/11/02/2017 Electronicall y Signed Out ?? [employer] TO EPIC CONVERSION 11/01/2017 11/01/2017 Narrative [facility] TO EPIC CONVERSION - 11/01/2017 11:33 AM CYBER DEFENSE ANALYST Result Communication: No patient communication needed at this time us Vilma Pulliam MD PATHOLOGY/CYTOLOGY ORDERABLES Fi nal Result [employer] TO EP[facility] CONVERSION documented in this encounter Visit Diagnoses Not on filedocumented in this encounter Care Teams Advanced Practice Nurse Psychotherapist Relationship Specialty Start Date End Date Zane Foy MD PCP - General 08/02/16 02/02/18 Codi Winters APNP Family & Internal Medicine [address] [address] PCP - General [facility] PICKER TENDER HELPER 02/03/18 11/23/22 Staci Sanchez MD Family & Internal Medicine [address] [address] [place] Unit Assembler INTERVENTIONAL CARDIOLOGY 02/16/18 documented as of this encounter
--- OUTSIDE RECORDS SUMMARY | 2024-08-26 07:06 | XMS_ITS | Encounter Summary ---
Author Organization [facility] Address [address] [place] [address]. [place], [place] [id number] [place] [address] Care Team Providers Care Engine Research Engineer Name Role Phone Zane Foy MD Primary Care Provider Codi Higgins Primary Care Provider [phone] Staci Sanchez MD Unavailable [phone] Encounter Details Date Type Department Care Team (Latest Contact Info) Description 12/08/2017 Abstract [facility] Social History Tobacco Use [...] as of this encounter Progress Notes * JT Fernando - 12/08/2017 2:00 PM CDT Message Recorded as Task Date: 10/27/2017 08:56 AM, Created By: Zari Wright Task Name: [facility] Regarding Patient: Saray Whitten, Status: In Progress Comment: Zari Wright - 27 Oct 2017 8:56 AM TASK CREATED Regarding the MRI L Spine w/o, the insurance denial was received today. Although the denial does state your records show that the same study or a test like it may have been done for you. They do notshow the results of that test ; as soon as I saw this statement online per checking, I called and spoke to the insurance company stating that I typed all information and records were never requested, nor was there a fax number provided at any time to submit supporting documentation. I spoke with a nurse and we went through all the details, he resubmitted the case for review and I received this paperwork today. There are more details, step by step, annotated on the MRI order. Please advise if peer to peer is done and authorization is obtained. Patient has not been informed of the status at this time. If authorization is not obtained through peer to peer, please let patient know. Thank you Zari Wright - 27 Oct 2017 8:57 AM TASK EDITED The denial form from the insurance company is scanned in the patient's chart under referrals, [id number]. Jaja Ferguson - 28 Oct 2017 11:12 AM TASK EDITED Per the letter it was dened because the same test was approved previously ( in Apr)and there is no proof that the pt had the test done. I called her to ask is she had the test done back then or not. -Jaja Gallego - 28 Oct 2017 11:12 AM TASK IN PROGRESS Nella Haddad - 02 Dec 2017 12:18 PM TASK EDITED LM to see if patient has seen anyone for this issue, is she still having pain and does she want to proceed? Justine Manrique - 02 Dec 2017 12:40 PM TASK EDITED patient called still having pain everyday had xray done but have not read results have not seen anyone else yes would like to proceed if insurance will pain new insurance as of 11/03/17 - [employer] [facility] please call with xray results is - [phone] Nella Haddad - 06 Dec 2017 9:01 AM TASK REASSIGNED: Previously Assigned To [facility] Nurse Team Codi Winters - 06 Dec 2017 9:11 AM TASK REASSIGNED: Previously Assigned To Codi Winters I see both MRI's ordered. No XR results are in the chart. Marianne Dietz - 07 Dec 2017 8:30 AM TASK EDITED lmtc, where did she have xray done and when?? Nella Haddad - 08 Dec 2017 9:21 AM TASK EDITED LM 12-08-17 to see if hip xrays were done. Patient does have a MRI L spine in chart from 2016. We have also referred this patient to [place] [facility]. Would it be ok to send this patient a contactletter to schedule a follow up appointment since this task and denial is from Oct. Nella Haddad - 08 Dec 2017 9:21 AM TASK REASSIGNED: Previously Assigned To [facility] Nurse Team Codi Winters - 08 Dec 2017 10:19 AM TASK EDITED That's fine Nella Haddad - 08 Dec 2017 2:00 PM TASK EDITED Patient contacted and appointment scheduled to follow up tn Signatures Electronically signed by : Nella Haddad, ; Dec 08 2017 2:01PM LAB CLERK (Author) documented in this encounter Plan of Treatment Upcoming Encounters Date Type Department Care Team (Late st Contact Info) Description 11/06/2024 12:30 PM LAB CLERK Appointment [facility] [place] [address] Danny Steele MD [address] [place] [phone] 11/06/2024 1:00 PM LAB CLERK Appointment [facility] [address] Danny Steele MD [address] [place] [address] [phone] documented as of this encounter Visit Diagnoses Not on filedocumented in this encounter Care Teams Engine Research Engineer Relationship Specialty Start Date End Date Zane Foy MD PCP - General 08/02/16 02/02/18 Codi Winters APNP Family & Internal Medicine [address] [address] PCP - General ADVANCED PRACTICE SHEAR TENDER 02/03/18 11/23/22 Staci Sanchez MD Family & Internal Medicine [address] [address] Nadira Wrinkle Chaser INTERVENTIONAL CARDIOLOGY 02/16/18 documented as of this encounter
--- OUTSIDE RECORDS SUMMARY | 2024-08-26 07:07 | XMS_ITS | Encounter Summary ---
Author Organization [facility] Address [address] [place] [address]. [place], [place] [address] [place] [address] Care Team Providers Care Sterile Processing Technician Name Role Phone Zane Foy MD Primary Care Provider Donovan junior Encounter Details Date Type Department Care Team (Late st Contact Info) Description 11/01/2017 Orders Only [facility] [place], [place] [phone] Vilma Pulliam MD [address] [place] [address] Social History Tobacco Use Types Packs/Day Years [...] st Contact Info) Description 11/06/2024 12:30 PM BULB GRADER Appointment [facility] [place], [place] [phone] Danny Steele MD [address] [phone] 11/06/2024 1:00 PM BULB GRADER Appointment [facility] [address] [facility] [address] Danny Steele MD [address] [facility] [address] [place] [address] documented as of this encounter Procedures Procedure Name Priority Date/Time Associated Diagnosis Comments PATHOLOGY Routine 11/01/2017 12:00 AM BULB GRADER documented in this encounter Results * Pathology (11/01/2017 12:00 AM BULB GRADER) COPATH REPORT ? [facility] ? Department of Pathology ? [address] ? [place] ??[id number] ? [id number] ? Pathology Report ? Name: SARAY WHITTEN ? Specimen #: [id number] Age: 7 1960 (Age: 57) ? Location: [facility] Sex: F ? Procedure Date: 11/01/2017 Hospital #: [id number] ? Date Received: 11/01/2017 Date Reported: 11/02/2017 [...] ??Pathologist sbb/11/02/2017 Electronicall y Signed Out ?? [facility] 11/01/2017 11/01/2017 11: 33 AM BULB GRADER Comment:POLYPS, RECTO SIGMOI D Vilma Pulliam MD PATHOLOGY/CYTOLOGY ORDERABLES Fi nal Result [facility] [address] [place] [address], documented in this encounter Visit Diagnoses Not on filedocumented in this encounter Care Teams Sterile Processing Technician Relationship Specialty Start Date End Date Zane Foy MD PCP - General 08/02/16 02/02/18 documented as of this encounter
--- OUTSIDE RECORDS SUMMARY | 2024-08-26 07:07 | XMS_ITS | Encounter Summary ---
Author Organization [facility] [place] [facility] Address [address] [place] [address]. [place], [place] [address] [place] [address] Care Team Providers Care Still Operator Gin Name Role Phone Zane Foy MD Primary Care Provider Codi Higgins Primary Care Provider [phone] Staci Sanchez MD Unavailable [phone] Encounter Details Date Type Department Care Team (Late st Contact Info) Description 11/01/2017 Abstract [facility] Medical Group Multispecialty Care - [facility] [address] [facility] [place] [id number] Vilma Pulliam MD [address] [place] [address] Social History Tobacco Use Types Packs/Day Years [...] AM CDT documented as of this encounter Procedure Notes * Vilma Pulliam MD - 11/01/2017 9:15 AM CST [facility] [address] [place], [place] [address] Patient Name: SARAY WHITTEN Date of : 1960 Med Rec #: [id number] Date of Service: 11/01/2017 Disch Date: Colonoscopy Report Provider(s): Vilma Pulliam MD Procedure: Colonoscopy Medications: Monitored Anesthesia Care Patient Profile: New onset constipation, last colonoscopy 8-9 years ago. Description of Procedure: After I obtained informed consent, the scope was passed under direct vision. Throughout the procedure, the patient's blood pressure, pulse, and oxygen saturations were monitored continuously. The colonoscope was introduced through the anus and advanced to the cecum, identified by appendiceal orifice and ileocecal valve. The colonoscopy was performed without difficulty. The patient tolerated the procedure well. The quality of the bowel preparation was good. Findings: The perianal and digital rectal examinations were normal. 2 diminutive polyps were found in the sigmoid colon. The polyps were sessile. The polyp were removed with a cold biopsy forceps. Resection and retrieval were complete. Verification of patient identification for the specimen was done. Estimated blood loss was minimal. Non-bleeding small external hemorrhoids were found during retroflexion. The exam was otherwise without abnormality. Estimated Blood Loss: Estimated blood loss was minimal. Complications: No immediate complications. Impression: -2 small sigmoid colon polyps. Resected and retrieved. - Non-bleeding small external hemorrhoids. - The examination was otherwise normal. Recommendation: - Discharge patient to home (with escort). - Resume regular diet today. - Await pathology results. - Repeat colonoscopy in 5-10 years for surveillance based on pathology results. - Return to referring physician as previously scheduled. -Return to clinic as previous scheduled in January 2018 Signed by: VILMA PULLIAM 11/01/2017 10:16 AM documented in this encounter Plan of Treatment Upcoming Encounters Date Type Department Care Team (Late st Contact Info) Description 11/06/2024 12:30 PM PETROLEUM REFINERY OPERATOR [facility] [place] [address] Danny Steele MD [facility] [address] [place] [address] [phone] 11/06/2024 1:00 PM PETROLEUM REFINERY OPERATOR Appointment [facility] Ultrasound [address] [facility] [place] [address] Danny Steele MD [facility] [address] [place] [address] [address] documented as of this encounter Procedures Procedure Name Priority Date/Time Associated Diagnosis Comments COLONOSCOPY Routine 11/01/2017 12:00 AM PETROLEUM REFINERY OPERATOR documented in this encounter Results * Colonoscopy (11/01/2017 12:00 AM PETROLEUM REFINERY OPERATOR) 11/01/2017 11/01/2017 Narrative [facility] TO EPIC CONVERSION - 11/01/2017 12:00 AM PETROLEUM REFINERY OPERATOR Documented hx of procedure Procedure Note Cheko Tucker MD - 07/09/2018 Documented hx of procedure us Generic Conversion Md TUCKER GI PROCEDURE ORDERABLES Final Result Performing Organization Address City/State/[facility] Co de Phone Number [facility] TO [facility]IC CONVERSION documented in this encounter Visit Diagnoses Not on filedocumented in this encounter Care Teams Still Operator Gin Relationship Specialty Start Date End Date Zane Foy MD PCP - General 08/02/16 02/02/18 Codi Winters APNP Family & Internal Medicine [address] [address] PCP - General ADVANCED PRACTICE WAREHOUSE WORKER 2ND SHIFT 02/03/18 11/23/22 Staci Sanchez MD Family & Internal Medicine [address] [address] [employer] Tower Climber INTERVENTIONAL CARDIOLOGY 02/16/18 documented as of this encounter
--- OUTSIDE RECORDS SUMMARY | 2024-08-26 07:07 | XMS_ITS | Encounter Summary ---
Author Organization [facility] Address [address] [place] [address]. [place] [address] [place] [address] Care Team Providers Care Ball Sorter Name Role Phone Zane Foy MD Primary Care Provider Donovan junior Encounter Details Date Type Department Care Team (Late st Contact Info) Description 11/01/2017 9:38 AM ORACLE SPECIALIST Anesthesia Event [facility] [address] [facility] [address] [place], [place] [address] Homero Valdez MD [address] [facility] [address] [place], [place] [address] Anesthesia Record Procedure Summary Procedure Name Responsible Anesthesiologist Anesthesia Start Time Anesthesia Stop Time COLONOSCOPY WITH sigmoid polyps x 2 removed with forceps Homero Valdez MD 11/01/17 0938 11/01/17 1012 Events Date Time Event Comment 11/01/2017 0829 0829 AN Anesthesia Prepped 0938 An Start Patient ID and consent checked and patient reassessed. 0938 An Start Data 0938 Preoxygenation 0938 Nasal Cannula Applied 0939 AN REHAB TECHNICIAN Prepped 0940 An Induction 0940 Anesthesia Ready 1007 An Emergence 1010 an stop data 1012 Post Anesthetic Care Handoff I completed my handoff to the receiving nurse during which we: 1. Identified the patient 2. Identified the responsible provider 3. Reviewed the pertinent medical history 4. Discussed the surgical course 5. Reviewed intra-op anesthesia management and issues during anesthesia 6. Set expectations for post-procedure period 7. Allowed opportunity for questions and acknowledgement of understanding. 1012 An Stop Meds Name Total lidocaine (PF) (XYLOCAINE) 2% injection 50 mg propofol (DIPRIVAN) 200 mg/20 mL injecti on 400 mg lactated ringers infusion 500 mL * Agents Name O2 N2O Air * Blood No blood administrations on file. Lines, Drains, and Airways Type Details Placement Removal Peripheral IV Placement Date: 11/01/17; Placement Time: 842; Size: 20 G; Orientation: Right; Location: Hand; Site Prep: Chlorhexidine; Inserted By: shila martínez; Insertion attempts: 1; Patient Tolerance: Tolerated well; Removal Date: 11/01/17; Removal Time: 1114; Removal Reason: Patient Discharged 11/01/17 0843 by Shila Martínez RN 11/01/171114 by Shila Martínez RN Supraglottic Airway Placement Date: 11/01/17; Placement Time: 937; Airway Device: Nasal prong; Removal Date: 05/23/18 (Removed by LDA Completion Utility); Removal Time: 918 (Removed by LDA Completion Utility) 11/01/17 0938 by Sarah Hancock, HENRY 05/23/18 09 by Nurse Kali, RN documented in this encounter Social History Tobacco [...] AM CDT documented as of this encounter OR Notes * Anesthesia Postprocedure Evaluation - Homero Valdez MD - 11/01/2017 12:57 PM CST Anesthesia Post-op Note Saray Teague Whitten Procedure(s): COLONOSCOPY WITH sigmoid polyps x 2 removed with forceps (N/A ) Anesthesia type: general Vitals: 11/01/17 1110 BP: (!) 171/98 Pulse: 62 Resp: 19 Temp: SpO2: 99% Patient Location: Phase II/Outpatient Level of Consciousness: awake Pain Management: adequate analgesia Airway Patency: patent Respiratory Status: acceptable Cardiovascular Status: acceptable Post-Op Nausea: none Postoperative Hydration: euvolemic Complications: no anesthesia complication LE SPECIALIST * Anesthesia Postprocedure Evaluation - Homero Valdez MD - 11/01/2017 12:31 PM CST Anesthesia Post-op Note Saray Whitten Procedure(s): COLONOSCOPY WITH sigmoid polyps x 2 removed with forceps (N/A ) Anesthesia type: general Vitals: 11/01/17 1110 BP: (!) 171/98 Pulse: 62 Resp: 19 Temp: SpO2: 99% Patient Location: PACU Level of Consciousness: awake Pain Management: adequate analgesia Airway Patency: patent Respiratory Status: acceptable Cardiovascular Status: acceptable Post-Op Nausea: none Postoperative Hydration: euvolemic Complications: no anesthesia complication LE SPECIALIST * Anesthesia Preprocedure Evaluation - Homero Valdez MD - 11/01/2017 8:27 AM CST Anesthesia ROS/MED History Reviewed: Patient summary , Nursing notes , ECG, Family history anesthesia, Anesthesia history , Medications , Labs , Images/Studies Pre-Anesthetic State: alert, awake and responds appropriately no history of anesthetic complications Pulmonary neg pulmonary ROS (-) smoker Cardiovascular neg cardio ROS Exercise tolerance:good Neuro/Psych GI/Hepatic/Renal (-) GERD Endo/Other (+) obese, arthritis Comments: Sarcoidosis GENERAL COMMENTS No Known Allergies Past Medical History: No date: Sarcoidosis Past Surgical History: No date: OTHER PROCEDURE Comment: BREAST SURGERY YEARS AGO Physical Evaluation Airway Mallampati: III TM Distance: >3 FB Neck ROM: normal, small mouth opening Dental Pulmonary Pulmonary exam normal Breath sounds clear to auscultation Cardiovascular Rhythm: regular Rate: normal Cardiovascular exam normal Other findings: Height 5' 6.5 (1.689 m), weight 98 kg (216 lb). No results for input(s): WBC, RBC, HGB, HCT, PLT, NA, K, CL, CO2, AGAP, BUN, CR, BUNCREATININ, GFRNON, GFR, GLU, CA in the last 72 hours. Anesthesia Plan ASA 2 Intravenous Induction Anesthesia type: general Discussed potential risks of General Anesthesia including but not limited to corneal abrasion, visual impairment or visual loss, mouth injury, dental damage, sore throat, hoarseness, esophageal injury, awareness under anesthesia, nerve injury due to positioning, aspiration, pneumonia, stroke, cardiac event, adverse drug reactions and . Tiva anesthetic planned and discussed. Possible GA as needed. Informed Consent Anesthetic plan and risks discussed with patient of whom consent was obtained. . LE SPECIALIST documented in this encounter Plan of Treatment Upcoming Encounters Date Type Department Care Team (Late st Contact Info) Description 11/06/2024 12:30 PM ORACLE SPECIALIST Appointment [facility] [place] [phone] Danny Steele MD [address] [place] [address] 11/06/2024 1:00 PM ORACLE SPECIALIST Appointment [facility] ONE [place], [place] [phone] Danny Steele MD [address] [place] [phone] documented as of this encounter Visit Diagnoses Not on filedocumented in this encounter Administered Medications Inactive Administered Medications - up to 3 most recent administrations Medication Order MAR Action Action Date Dose Rate Site lactated ringers infusion at 10 mL/hr, Intravenous, Continuous, Starting on Tue11/01/17 at 0845, Until Tue11/01/17 at 1328, Infuse at TKO rate, Pre-Op New Bag 11/01/2017 9:37 AM ORACLE SPECIALIST lidocaine (PF) (XYLOCAINE) 2 % injection Intravenous, PRN, Starting on Tue11/01/17 at 0940, Until Tue11/01/17 at 1012, Anesthesia Intra-Op Given 11/01/2017 9:40 AM ORACLE SPECIALIST 50 mg propofol (DIPRIVAN) IV bolus Intravenous, PRN, Starting on Tue11/01/17 at 0940, Until Tue11/01/17 at 1012, Anesthesia Intra-Op Given 11/01/2017 10:06 AM ORACLE SPECIALIST 30 mg Given 11/01/2017 10:03 AM ORACLE SPECIALIST 30 mg Given 11/01/2017 10:00 AM ORACLE SPECIALIST 40 mg documented in this encounter Care Teams Ball Sorter Relationship Specialty Start Date End Date Zane Foy MD PCP - General 08/02/16 02/02/18 documented as of this encounter
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
--- OUTSIDE RECORDS SUMMARY | 2024-08-26 07:09 | XMS_ITS | Encounter Summary ---
Author Organization [facility] Address [address] [place] [address]. [place], [place] [address] [place] [address] Care Team Providers Care Lead C Developer Name Role Phone Zane Foy MD Primary Care Provider Zane Ruiz MD Primary Care Provider Codi Higgins Primary Care Provider [phone] Staci Sanchez MD Unavailable [phone] Encounter Details Date Type Department Care Team (Latest Contact Info) Description 06/03/2016 Abstract [facility] Medical [facility] Social History Tobacco Use Types Packs/Day Years Used Date Smoking Tobacco: Never Assessed Comments Unknown Sex and Gender Information Value Date Recorded Sex Assigned at Not on file Legal Sex Female 8:22 PM CDT Gender Identity Not on file Sexual Orientation Straight 06/27/2024 8: 00 AM CDT documented as of this encounter Progress Notes * Zane Foy MD - 06/03/2016 8:03 AM CDT Message Pt updated-joi Verified Results *Urine dip auto In Office [id number] 03:50PM Zane Foy Test Name Result Flag Reference Color Yellow Clarity Cloudy Glucose Negative Bilirubin Negative Ketones 5 mg/dL-Trace Specific [place] 1.025 Blood Negative pH 5.0 5.0 - 7.0 Protein Negative Urobilinogen 0.2 E.U./dL Nitrites neg Leukocytes Small-1+ CBC W Differential [id number] 03:48PM Zane Foy Test Name Result Flag Reference WBC 5.0 X10'3/uL 4.8-10.8 RBC 4.95 X10'6/uL 4.20-5.40 Hemoglobin (HGB) 13.6 g/dL 12.0-16.0 Hematocrit (HCT) 42.7 % 38.0-48.0 Mean Corpuscular Volume (MCV) 86.3 fL 81.0-99.0 Mean Corpuscular Hgb (MCH) 27.5 pg 27.0-31.0 Mean Corpuscular Hgb Conc (MCH 31.9 g/dL L 32.0-36.0 RDW 14.2 % 11.5-14.5 PLATELET COUNT 222 X10'3/uL 130-400 Mean Platelet Volume (MPV) 10.9 fL 9.3-12.2 Differential Type AUTOMATED NEUTROPHILS 47.0 % 43.0-65.0 Lymphocytes % (Auto) 40.6 % 20.0-46.0 MONOCYTES 9.2 % 5.0-12.0 Eosinophils % (Auto) 2.6 % 1.0-3.0 Basophils % (Auto) 0.4 % 0.0-1.0 IMMATURE GRANULOCYTES 0.2 % 0.0-1.0 Compr Metabolic Prof ( CMP ) [id number] 03:48PM Zane Foy Test Name Result Flag Reference Glucose 92 mg/dL 70-99 Blood Urea Nitrogen (BUN) 14 mg/dL 8-23 Creatinine 0.73 mg/dL 0.60-1.10 Sodium (Na) 139 mmol/L 136-145 Potassium (K) 4.4 mmol/L 3.5-5.1 Chloride (Cl) 100 mmol/L 98-107 Carbon Dioxide (CO2) 28 mmol/L 22-29 Total Bilirubin 0.5 mg/dL 0.2-1.2 Calcium 9.8 mg/dL 8.6-10.2 Alkaline Phosphatase (ALKP) 87 U/L 35-104 AST/GOT 18 U/L 0-32 Total Protein 8.0 g/dL 6.4-8.3 Albumin 4.5 g/dL 3.5-5.2 ALT/GPT 12 U/L 0-33 Globulin, Calc 3.5 g/dL 2.3-3.6 A:G Ratio 1.3 1.0-2.0 Anion Gap 15 8-20 Glomerular Filt Rate Calc >60 mL/min/1.73m'2 >60 Glomerular Filt Rate (AA) Calc >60 >60 NOTE: eGFR is not calculated for patients <18 years of age. This is an estimated GFR (CKD EPI) and should not be used for calculating drug doses. mL/min/1.73m'2 Thyroid Stim Hormone ( TSH ) 31May2016 03:48PM Zane Foy Test Name Result Flag Reference Thyroid Stim Hormone (TSH) 0.70 mIU/mL 0.27-4.20 Urine Culture [id number] 03:48PM Zane Foy Test Name Result Flag Reference Urine Culture (Report) SPECIMEN DESCRIPTION - URINE CLEAN CATCH SPECIAL REQUESTS - NO SPECIAL REQUEST CULTURE - POLYMICROBIAL GROWTH CONSISTENT WITH NORMAL GENITAL ROS. SUSCEPTIBILITIES NOT CULTURE - ROUTINELY PERFORMED. REPORT STATUS - FINAL 06/02/2016 Lipid Profile 31May2016 03:48PM Zane Foy Test Name Result Flag Reference CHOLESTEROL 225 MG/DL H <200 NOTE: Acetaminophen, N Acetyl p benzoquinone imine (NAPQI), N acetylcysteine (NAC), Metamizole, 4 Aminoantipyrine (4 AAP) and 4 Methylamino antipyrine (4 MAP) at high concentrations can cause falsely low results on Lactate, Uric Acid, Cholesterol, Triglyceride, HDL, and Direct LDL. TRIGLYCERIDE 55 MG/DL <150 HDL CHOLESTEROL 78 MG/DL >59 LDL CALCULATED 136 MG/DL H <100 Non HDL, Calc 147 MG/DL H <130 NOTE: WHEN THE TRIGLYCERIDES ARE >200 mg/dL, NON HDL C IS A SECONDARY TARGET OF THERAPY, WITH A GOAL 30 mg/dL HIGHER THAN THE IDENTIFIED LDL C GOAL. CHOL/HDL RATIO 2.9 0.0-4.5 VLDL Cholesterol 11 MG/DL 5-55 Lipid Profile Comment 1 (Report) [facility] CONCENSUS REPORT RECOMMENDATIONS: ADULT CHILD LOW RISK: CHOLESTEROL <200 <170 TRIGLYCERIDE <150 --- HDL >=60 --- LDL <100 <110 BORDERLINE: CHOLESTEROL 200-239 170-199 TRIGLYCERIDE 150-199 --- HDL 40-59 --- LDL 100-159 110-129 HIGH RISK: CHOLESTEROL >=240 >=200 TRIGLYCERIDE >=200 --- HDL <40 --- LDL >=160 >=130 EKG In Office 31May2016 12:00AM Zane Foy . Test Name Result Flag Reference EKG/ECG NSR without ST T wave changes. Plan Elevated cholesterol ?? Simvastatin 10 MG Oral Tablet; TAKE 1 TABLET DAILY DIRECTED ?? Hepatic ( Liver ) Profile; Status:Hold For - Manual Activation; Requested for:[id number]; ?? Lipid Profile; Status:Hold For - Manual Activation; Requested for:[id number]; Discussion/Summary blood and urine tests are good/normal other than mildly elevated cholesterol 225 mg. Treatment is decrease fat and cholesterol in the diet, increase activity and modest weight loss. We can add a small dose of cholesterol medicine if agreeable. Simvastatin 10 mg daily. Recheck lipid in eight weeks. Signatures Electronically signed by : Jaja Ferguson R.N.; Jun 04 2016 8:15AM JUNIOR RECRUITER (Author) documented in this encounter Plan of Treatment Upcoming Encounters Date Type Department Care Team (Late st Contact Info) Description 11/06/2024 12:30 PM JUNIOR RECRUITER Appointment [facility] [address] Danny Steele MD [address] [place] [address] [phone] 11/06/2024 1:00 PM JUNIOR RECRUITER Appointment [facility] [place] [address] Danny Steele MD [address] [place] [address] [phone] documented as of this encounter Procedures Procedure Name Priority Date/Time Associated Diagnosis Comments LIPID PANEL Routine 08/02/2016 2:02 PM JUNIOR RECRUITER documented in this encounter Results * (ABNORMAL) LIPID PANEL (08/02/2016 2:02 PM JUNIOR RECRUITER) CHOLESTEROL 213(H) <200 MG/DL [facility] TO EPIC CONVERSION Comment: Result Comment: NOTE: Acetaminophen, N Acetyl p benzoquinone imine (NAPQI), N acetylcysteine (NAC), Metamizole, 4 Aminoantipyrine (4 AAP) and 4 Methylamino antipyrine (4 MAP) at high concentrations can cause falsely low results on Lactate, Uric Acid, Cholesterol, Triglyceride, HDL, and Direct LDL. TRIGLYCERIDES 41 <150 MG/DL [facility] TO EPIC CONVERSION HDL 85 >59 MG/DL [facility] TO EPIC CONVERSION LDL (CALCULATED) 120(H) <100 MG/DL [facility] TO EPIC CONVERSION NON HDL CHOLESTEROL 128 <130 MG/DL [facility] TO EPIC CONVERSION Comment: Result Comment: NOTE: WHEN THE TRIGLYCERIDES ARE >200 mg/dL, NON HDL C IS A SECONDARY TARGET OF THERAPY, WITH A GOAL 30 mg/dL HIGHER THAN THE IDENTIFIED LDL C GOAL. CHOL/HDL RATIO 2.5 0.0 - 4.5 [facility] TO EPIC CONVERSION VLDL CHOLESTEROL (LMP) 8 5 - 55 MG/DL [facility] TO EPIC CONVERSION LIPID INTERPRETATION NIH CONCENSUS REPORT RECOMMENDATI ONS: ?ADULT ?CHILD ??LOW RISK: ?CHOLESTERO L ? <200 ? <170 ?TRIGLYCERI DE ?<150 ?--- ?HDL ? >=60 ?--- ?LDL ? <100 ? <110 ?BORDERLINE : ?CHOLESTERO L ? 200-239 ?? 170-199 ?TRIGLYCERI DE ?150-199 ? --- ?HDL ?40-59 ?--- ?LDL ? 100-159 ?? 110-129 ?HIGH RISK: ?CHOLESTERO L ? >=240 ?>=200 ?TRIGLYCERI DE ?>=200 ? --- ?HDL ?<40 ?--- ?LDL ? >=160 ?>=130 [facility] TO EPIC CONVERSION 08/02/2016 2:02 PM JUNIOR RECRUITER 08/02/2016 2:02 PM JUNIOR RECRUITER Narrative [facility] TO EPIC CONVERSION - 08/02/2016 9:08 PM JUNIOR RECRUITER Result Communication: No patient communication needed at this time Laurence Adam CONVEYOR FEEDER [employer]AT[employer] Final Result [facility] TO [facility] CONVERSION documented in this encounter Visit Diagnoses Not on filedocumented in this encounter Care Teams Lead C Developer Relationship Specialty Start Date End Date Zane Foy MD PCP - General 08/02/16 02/02/18 Zane Foy MD PCP - General 05/31/16 08/01/16 Codi Winters APNP Family & Internal Medicine [address] [address] PCP - General ADVANCED PRACTICE TEMPERER 02/03/18 11/23/22 Staci Sanchez MD Family & Internal Medicine [address] [address] Nadira Compressor Service Technician INTERVENTIONAL CARDIOLOGY 02/16/18 documented as of this encounter
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
--- OUTSIDE RECORDS SUMMARY | 2024-08-26 07:09 | XMS_ITS | Encounter Summary ---
Author Organization [facility] Address [address] [place] [address]. [place] [address] [place] [address] Care Team Providers Care Towel Distributor Name Role Phone Zane Foy MD Primary Care Provider Donovan junior Encounter Details Date Type Department Care Team (Late st Contact Info) Description 08/02/2016 Abstract [facility] [address] Zane Foy MD Social History Tobacco Use [...] st Contact Info) Description 11/06/2024 12:30 PM ENTRY LEVEL TRUCK DRIVER Appointment [facility] [place] [address] Danny Steele MD [address] [place] [address] [phone] 11/06/2024 1:00 PM ENTRY LEVEL TRUCK DRIVER Appointment [facility] [address] Danny Steele MD [address] [place] [address] [phone] documented as of this encounter Procedures Procedure Name Priority Date/Time Associated Diagnosis Comments LIPID PANEL Routine 08/02/2016 2:02 PM ENTRY LEVEL TRUCK DRIVER documented in this encounter Results * (ABNORMAL) LIPID PANEL (08/02/2016 2:02 PM ENTRY LEVEL TRUCK DRIVER) CHOLESTEROL 213(H) <200 MG/DL 08/02/2016 10:08 PM [facility] Comment: NOTE: Acetaminophen, N Acetyl p benzoquinone imine (NAPQI), N acetylcysteine (NAC), Metamizole, 4 Aminoantipyrine (4 AAP) and 4 Methylamino antipyrine (4 MAP) at high concentrations can cause falsely low results on Lactate, Uric Acid, Cholesterol, Triglyceride, HDL, and Direct LDL. TRIGLYCERIDES 41 <150 MG/DL 08/02/2016 10:08 PM [facility] HDL 85 >59 MG/DL 08/02/2016 10:08 PM [facility] LDL (CALCULATED) 120(H) <100 MG/DL 08/02/2016 10:08 PM [facility] NON HDL CHOLESTEROL 128 <130 MG/DL 08/02/2016 10:08 PM [facility] Comment: NOTE: WHEN THE TRIGLYCERIDES ARE >200 mg/dL, NON HDL C IS A SECONDARY TARGET OF THERAPY, WITH A GOAL 30 mg/dL HIGHER THAN THE IDENTIFIED LDL C GOAL. CHOL/HDL RATIO 2.5 0.0 - 4.5 08/02/2016 10:08 PM [facility] VLDL CALCULATION 8 5 - 55 MG/DL 08/02/2016 10:08 PM [facility] LIPID INTERPRETATION 08/02/2016 10:08 PM [facility] Comment: [facility] CONCENSUS REPORT RECOMMENDATIONS: ?ADULT ?CHILD ??LOW RISK: ?CHOLESTEROL ? <200 ? <170 ?TRIGLYCERIDE ?<150 ?--- ?HDL ? >=60 ?--- ?LDL ? <100 ? <110 ??BORDERLINE: ?CHOLESTEROL ? 200-239 ?? 170-199 ?TRIGLYCERIDE ?150-199 ? --- ?HDL ?40-59 ?--- ?LDL ? 100-159 ?? 110-129 ??HIGH RISK: ?CHOLESTEROL ? >=240 ?>=200 ?TRIGLYCERIDE ?>=200 ? --- ?HDL ?<40 ?--- ?LDL ? >=160 ?>=130 08/02/2016 2:02 PM ENTRY LEVEL TRUCK DRIVER 08/02/2016 9:06 PM ENTRY LEVEL TRUCK DRIVER us Generic Conversion [facility] Final R esult [facility] [address] [place] [address], documented in this encounter Visit Diagnoses Diagnosis Pure hypercholesterolemia documented in this encounter Care Teams Towel Distributor Relationship Specialty Start Date End Date Zane Foy MD PCP - General 08/02/16 02/02/18 documented as of this encounter
--- OUTSIDE RECORDS SUMMARY | 2024-08-26 07:09 | XMS_ITS | Encounter Summary ---
Author Organization [facility] Address [address] [place] [address]. [place] [address] [place] [address] Care Team Providers Care Full Time Paramedic Name Role Phone Zane Foy MD Primary Care Provider Donovan junior Encounter Details Date Type Department Care Team (Latest Contact Info) Description 11/01/2017 7:29 AM CUT OFF [facility] - 11/01/2017 11:25 AM CUT OFF [facility] Hospital Encounter [facility] Endo/GI [address] [place], [place] [id number] Gennaro Pulliam MD [address] [place] [address] Discharge Disposition: Home or Self Care (Routine [...] Comments Blood Pressure 171/98 11/01/2017 11:10 AM CUT [facility] Pulse 62 11/01/2017 11:10 AM CUT [facility] Temperature 37.1 ??C (98.8 ??F) 11/01/2017 10:[address] Respiratory Rate 19 11/01/2017 11:10 AM CUT OFF [facility] Oxygen Saturation 99% 11/01/2017 11:10 AM CUT OFF [facility] Inhaled Oxygen Concentration - - Weight 98 kg (216 lb) 10/27/2017 12:01 AM CUT OFF [facility] Height 168.9 cm (5' 6.5 ) 10/27/2017 12:01 AM CS T Body Mass Index 34.34 10/27/2017 12:01 AM CUT OFF [facility] documented in this encounter Discharge Instructions * Discharge Instructions* Shila Vogel, RN - 11/01/2017 10:35 AM CUT OFF [facility] Images from the original note were not included. Diagnosis: polyps x2 Keep appointment with Dr. Pulliam. (Dr. Pulliam will discuss results with you at that appointment.) Continue Miralax daily Call Dr. Pulliam if any questions or concerns [phone] ACTIVITY ?? Limit your activity for the [...] belly pain. Where can I learn more? [employer] http://www.gastro.org/info_for_patients/ulthczwdfwr-622-twpb-rm-x-ozilzfgnwkj [employer] Society for Gastrointestinal Endoscopy http://www.asge.org/patients/patients.aspx?tp=349 National Digestive Diseases Information Clearinghouse http://digestive.niddk.nih.gov/ddiseases/pubs/colonoscopy/ Last [...] for you. Copyright Copyright ?? 2017 [employer] and its affiliates and/or licensors. All rights reserved. OFF [facility] documented in this encounter Medications at Time of Discharge multivitamin tablet Take 1 tablet by mouth daily. ibuprofen 800 MG tablet Take 800 mg by mouth every 8 (eight) hours as needed for Pain. 03/13/2018 documented as of this encounter H&P Notes * Gennaro Chahla, MD - 10/31/2017 8:37 PM CST HISTORY AND PHYSICAL INTERVAL NOTE: I have reviewed Saray Teague Whitten History & Physical which was performed within the past 30 days. After examining Saray Teague Whitten, no change has occurred in the patient's condition since the H&P was completed. Informed Consent Discussion: Risks, benefits, alternatives as well as the consequences of not performing the surgery/procedure were discussed with the patient and/or family/personal phlebotomy services representative. Questions were answered and the patient/family/personal phlebotomy services representative verbalized understanding and desires to proceed. 57 [...] 3 TIMES DAILY WITH FOOD NEEDED; Therapy: [id number] to (Evaluate:09Nov2017) Requested for: [id number]; Last Rx:[id number] Ordered Rx By: Codi Winters; Dispense: 20 Days ; #:60 Tablet; Refill: 0;For: Left hip pain, Low back painpotentially associated with radiculopathy, Right hip pain; CRISTOPHER = N; [facility]; Last Updated By: Vicky Boogie; [...] MANUAL Compr Metabolic Prof ( CMP ) 20Oct2017 01:55PM Codi Winters Test Name Result [...] Gennaro Pulliam MD; Oct 26 2017 2:23PM CUT OFF [facility] (Author) OFF [facility] documented in this encounter OR Notes * [...] clinic as previous scheduled in January 2018 OFF [facility] documented in this encounter Plan of Treatment Upcoming Encounters Date Type Department Care Team (Late st Contact Info) Description 11/06/2024 12:30 PM CUT OFF [facility] Appointment [facility] [place], [place] [phone] Danny Steele MD [address] [place] [phone] 11/06/2024 1:00 PM CUT OFF [facility] Appointment [facility] [place] [id number] Danny Steele MD [address] [place] [phone] documented as of this encounter Procedures Procedure Name Priority Date/Time Associated Diagnosis Comments COLONOSCOPY WITH BIOPSY 11/01/2017 9:25 AM CUT OFF [facility] COLON CANCER SCREENING, CHANGE IN BOWELS Case Notes RADHA BY FAX 2-76-19 ML documented in this encounter Visit Diagnoses Not on filedocumented in this encounter Administered Medications Inactive Administered Medications - up to 3 most recent administrations Medication Order MAR Action Action Date Dose Rate Site lactated ringers infusion at 10 mL/hr, Intravenous, Continuous, Starting on Tue11/01/17 at 0845, Until Tue11/01/17 at 1328, Infuse at TKO rate, Pre-Op New Bag 11/01/2017 9:37 AM CUT OFF [facility] documented in this encounter Active and Recently Administered Medications Times are shown in CUT OFF [facility]. Continuous Medication Order 10/30/2017 10/31/2017 11/01/2017 lactated ringers infusion at 10 mL/hr, Intravenous, Continuous, Starting on 11/01/17 at 0845, Until 11/01/17 at 1328, Infuse at TKO rate, Pre-Op [...] exam) documented in this encounter Care Teams Full Time Paramedic Relationship Specialty Start Date End Date Zane Foy MD PCP - General 08/02/16 02/02/18 documented as of this encounter
--- OUTSIDE RECORDS SUMMARY | 2024-08-26 07:09 | XMS_ITS | Encounter Summary ---
Author Organization [facility] Address [address] [place] [address]. [place], [place] [address] [place] [address] Care Team Providers Care Reinforcing Steel Worker Name Role Phone Zane Foy MD Primary Care Provider Codi Higgins Primary Care Provider [phone] Staci Sanchez MD Unavailable [phone] Encounter Details Date Type Department Care Team (Latest Contact Info) Description 04/22/2017 Abstract [facility] Social History Tobacco Use Types [...] st Contact Info) Description 11/06/2024 12:30 PM COMPRESSION MOLDING MACHINE OPERATOR Appointment [facility] [address] [place], [place] [phone] Danny Steele MD [facility] [phone] 11/06/2024 1:00 PM COMPRESSION MOLDING MACHINE OPERATOR Appointment [facility] [address] [place], [place] [address] Danny Steele MD [facility] [address] [phone] documented as of this encounter Visit Diagnoses Not on filedocumented in this encounter Care Teams Reinforcing Steel Worker Relationship Specialty Start Date End Date Zane Foy MD PCP - General 08/02/16 02/02/18 Codi Winters APNP Family & Internal Medicine [address] [address] PCP - General ADVANCED PRACTICE LEAD BUSINESS ANALYST 02/03/18 11/23/22 Staci Sanchez MD [facility] [address] [address] Nadira Perl Developer INTERVENTIONAL CARDIOLOGY 02/16/18 documented as of this encounter
--- OUTSIDE RECORDS SUMMARY | 2024-08-26 07:09 | XMS_ITS | Encounter Summary ---
Author Organization [facility] Address [address] [place] [address]. [place] [address] [place] [address] Care Team Providers Care Radiotelegraph Operator Servicer Name Role Phone Zane Foy MD Primary Care Provider Donovan junior Encounter Details Date Type Department Care Team (Late st Contact Info) Description 10/21/2017 Orders Only [facility] [place], [place] [address] Codi Winters, JT [address] [place] [address] Social History Tobacco Use Types Packs/Day Years [...] st Contact Info) Description 11/06/2024 12:30 PM CRABBING MACHINE OPERATOR Appointment [facility] [address] Danny Steele MD [address] [place] [id number] 11/06/2024 1:00 PM CRABBING MACHINE OPERATOR Appointment [facility] [place], [place] [address] Danny Steele MD [facility] [place] [address] documented as of this encounter Results * CULTURE URINE (10/21/2017 10:40 AM CRABBING MACHINE OPERATOR) SPEC DESCRIPTION URINE VOIDED 10/21/2017 6:45 PM CRABBING MACHINE OPERATOR [facility] SPECIAL REQUESTS NO SPECIAL REQUEST 10/21/2017 6:45 PM CRABBING MACHINE OPERATOR [facility] CULTURE RESULT POLYMICROBIAL GROWTH CONSISTENT WITH NORMAL GENITAL ROS. ?? SUSCEPTIBILITIES NOT ROUTINELY PERFORMED. 10/24/2017 9:43 AM CRABBING MACHINE OPERATOR [facility] URINE SPECIMEN FROM URETHRA / Unknown 10/21/2017 10:40 AM CRABBING MACHINE OPERATOR 10/21/2017 7:16 PM CRABBING MACHINE OPERATOR us Codi WATERS MICROBIOLOGY - GENERAL [place] Final Result [facility] [address] [place] [address], documented in this encounter Visit Diagnoses Diagnosis Other abnormal findings in urine documented in this encounter Care Teams Radiotelegraph Operator Servicer Relationship Specialty Start Date End Date Zane Foy MD PCP - General 08/02/16 02/02/18 documented as of this encounter
--- OUTSIDE RECORDS SUMMARY | 2024-08-26 07:09 | XMS_ITS | Encounter Summary ---
Author Organization [facility] Address [facility]. [place], [place] [address] [place] [address] Care Team Providers Care Agricultural Lender Name Role Phone Zane Foy MD Primary Care Provider Codi Higgins Primary Care Provider [phone] Staci Sanchez MD Unavailable [phone] Encounter Details Date Type Department Care Team (Late st Contact Info) Description 10/21/2017 Abstract [facility] Medical Group Family & Internal Medicine [id number] [place] [address] Huang Colindres MD [facility] [place], [place] [phone] Social History Tobacco Use Types Packs/Day Years Used Date Smoking Tobacco: Never Assessed Comments Unknown Sex and Gender Information Value Date Recorded Sex Assigned at Not on file Legal Sex Female 8:22 PM CDT Gender Identity Not on file Sexual Orientation Straight 06/27/2024 8: 00 AM CDT documented as of this encounter Progress Notes * Generic Conversion MD Raquel - 10/21/2017 10:54 AM CST Message Recorded as Task Date: 10/21/2017 10:08 AM, Created By: Justine Brandt Task Name: Medical Complaint Callback [facility] Regarding Patient: Saray Whitten, Status: Active Comment: Justine Brandt - 21 Oct 2017 10:08 AM TASK CREATED Caller: Self; Medical Complaint; would like to have colonoscopy fells it long enough time between cb - [phone] Codi Winters - 21 Oct 2017 11:25 AM TASK EDITED Colonoscopy was ordered for her. Double check please Message: Pt updated-joi Plan 1. Physical Therapy Referral Outpatient For: Bilateral leg pain For: Right hip pain For: Left hip pain For: Neck pain For: Thoracolumbar back pain For: Low back pain potentially associated with radiculopathy Status: Active Requested for: [id number] Ordered; For: Bilateral leg pain, Left hip pain, Low back pain potentially associated with radiculopathy, Neck pain, Right hip pain, Thoracolumbar back pain; Ordered By: Codi Winters Performed: Due: 03Nov2017; Last Updated By: Zari Wright; 10/21/2017 10:59:46 AM see referral flow sheet 2. Gastroenterology Referral Outpatient For: Change in bowel habit Status: Active Requested for: [id number] Ordered RITA; For: Change in bowel habit; Ordered By: Codi Winters Performed: Due: 27Oct2017; Last Updated By: Zari Wright; 10/21/2017 10:55:17 AM see referral flow sheet 3. Cardiology Referral Outpatient For: Chest pain, atypical Status: Active Requested for: [id number] Ordered; For: Chest pain, atypical; Ordered By: Codi Winters Performed: Due: 03Nov2017; Last Updated By: Zari Wright; 10/21/2017 10:59:46 AM see referral flow sheet 4. MRI L SPINE W/O; Status:Need Information - Financial Authorization; Requested for:[id number]; Perform:Other Radiology; Due:19Nov2017; Last Updated By:Zari Wright; 10/21/2017 11:02:42 AM;Ordered; For:Left hip pain, Low back pain potentially associated with radiculopathy, Right hip pain; Ordered By:Codi Winters; request submitted online with [facility], case is currently been submitted for further medical review, awaiting response; Service Order# [id number]; ml for pt regarding current status Signatures Electronically signed by : Jaja Ferguson RKasey; Oct 21 2017 1:42PM TICKET CLERK (Author) documented in this encounter Plan of Treatment Upcoming Encounters Date Type Department Care Team (Late st Contact Info) Description 11/06/2024 12:30 PM TICKET CLERK Appointment [facility] [place] [address] Danny Steele MD [address] [phone] 11/06/2024 1:00 PM TICKET CLERK Appointment [facility] [place] [phone] Danny Steele MD [address] [place] [phone] documented as of this encounter Procedures Procedure Name Priority Date/Time Associated Diagnosis Comments URINALYSIS AUTO DIP Routine 10/21/2017 1 2:01 PM TICKET CLERK URINE BACTERIA CULTURE Routine 10/21/2017 10:40 AM TICKET CLERK documented in this encounter Results * (ABNORMAL) URINALYSIS AUTO DIP (10/21/2017 12:01 PM TICKET CLERK) COLOR (U) Straw [facility] T O EPIC CONVERSION TRANSPARENCY Clear [facility] P TO EPIC CONVERSION GLUCOSE Negative [facility] T O EPIC CONVERSION BILIRUBIN (U) Negative [facility] UP TO EPIC CONVERSION KETONE (U) Negative [facility] TO EPIC CONVERSION SPECIFIC GRAVITY (U) 1.020 [facility] TO EPIC CONVERSION BLOOD (U) Negative [facility] T O EPIC CONVERSION PH (U) 7.0 5.0 - 7.0 [facility] T O EPIC CONVERSION PROTEIN (ELP) (U) Negative [facility] TO EPIC CONVERSION UROBILINOGEN 0.2 E.U./dL [facility] OUP TO EPIC CONVERSION NITRITES neg [facility] T O EPIC CONVERSION LEUKOCYTES (U) Small-1+(A) [facility] TO EPIC CONVERSION 10/21/2017 12:0 1 PM TICKET CLERK 10/21/2017 12:01 PM TICKET CLERK Narrative [facility] TO EPIC CONVERSION - 10/21/2017 12:01 PM TICKET CLERK Result Communication: Call patient with results Codi WATERS URINE ORDERABLES Final Resu lt [facility] TO EPIC CONVERSION * CULTURE URINE (10/21/2017 10:40 AM TICKET CLERK) CULTURE URINE SPECIMEN DESCRIPTION ? - URINE VOIDED SPECIAL REQUESTS ? - NO SPECIAL REQUEST CULTURE ?- POLYMICROBIAL GROWTH CONSISTENT WITH NORMAL GENITAL ROS. ??SUSCEPTIBILITIE S NOT CULTURE ?- ??ROUTINELY PERFORMED. REPORT STATUS ?- FINAL 10/24/2017 [facility] TO EPIC CONVERSION 10/21/2017 10:4 0 AM TICKET CLERK 10/21/2017 10:40 AM TICKET CLERK Narrative [facility] TO EPIC CONVERSION - 10/24/2017 9:43 AM TICKET CLERK Result Communication: Call patient with results Codi WATERS MICROBIOLOGY - GENERAL ORDE RABLES Final Result Performing Organization Address [facility] Co de Phone Number [facility] TO EPIC CONVERSION documented in this encounter Visit Diagnoses Not on filedocumented in this encounter Care Teams Agricultural Lender Relationship Specialty Start Date End Date Zane Foy MD PCP - General 08/02/16 02/02/18 Codi Winters APNP Family & Internal Medicine [address] [address] PCP - General ADVANCED PRACTICE FINANCE LEAD 02/03/18 11/23/22 Staci Sanchez MD Family & Internal Medicine [address] [address] Nadira Ambulatory Care Coordinator INTERVENTIONAL CARDIOLOGY 02/16/18 documented as of this encounter
--- OUTSIDE RECORDS SUMMARY | 2024-08-26 07:09 | XMS_ITS | Encounter Summary ---
Author Organization [facility] - [facility] Address [address] [place] [address]. [place] [address] [place] [address] Care Team Providers Care Lithograph Designer Name Role Phone Zane Foy MD Primary Care Provider Codi Higgins Primary Care Provider [phone] Staci Sanchez MD Unavailable [phone] Encounter Details Date Type Department Care Team (Late st Contact Info) Description 10/26/2017 Abstract [facility] Medical Group Multispecialty Care - [facility] [address] [facility] [address] [place] [address] Gennaro Pulliam MD [address] [facility] [address] [place] [address] Social History Tobacco Use Types Packs/Day Years [...] Sign Reading Time Taken Comments Blood Pressure 134/84 10/26/2017 2:05 PM ANCHORMAN Pulse 85 10/26/2017 2:05 PM ANCHORMAN Temperature - - Respiratory Rate - - Oxygen Saturation - - Inhaled Oxygen Concentration - - Weight 98 kg (216 lb) 10/26/2017 2:05 PM ANCHORMAN Height 167.6 cm (5' 6 ) 10/26/2017 2:05 PM ANCHORMAN Body Mass Index 34.86 10/26/2017 2:05 PM ANCHORMAN documented in this encounter Progress Notes * Gennaro Pulliam MD - 10/26/2017 2:20 PM CST Reason For Visit chronic constipation Chief Complaint chronic constipation History of Present Illness 57 yo AAF with h/o chronic constipation, [...] 3 TIMES DAILY WITH FOOD NEEDED; Therapy: [id number] to (Evaluate:09Nov2017) Requested for: [id number]; Last Rx:[id number] Ordered Rx By: Codi Winters; Dispense: 20 Days ; #:60 Tablet; Refill: 0; For: Left hip pain, Low back pain potentially associated with radiculopathy, Right hip pain; CRISTOPHER = N; Verified Transmission to [facility]; Last Updated By: Vicky Boogie; 10/20/2017 11:06:37 AM Allergies 1. No Known Drug Allergies Recorded By: Laurence Fernandez; 10/06/2012 2:40:15 PM Vitals Recorded: [id number] 02:05PM Heart Rate 85 Systolic 134 Diastolic [...] x 3 Results/Data CBC W Manual Differential [id number] 01:55PM Codi Winters Test Name Result Flag [...] MANUAL Compr Metabolic Prof ( CMP ) [id number] 01:55PM Codi Winters Test Name Result Flag [...] with the colonoscopy soon Plan Constipation 1. Dulcolax 5 MG Oral Tablet Delayed Release; TAKE 1 TABLET DAILY NEEDED Rx By: Gennaro Pulliam; Dispense: 30 Days ; #:30 Tablet; Refill: 3; For: Constipation; CRISTOPHER = N; Record 2. Polyethylene Glycol 3350 Oral Powder (MiraLax); MIX 1 CAPFUL (17GM) IN 8 OUNCES OF WATER, JUICE, OR TEA AND DRINK DAILY Rx By: Gennaro Pulliam; Dispense: 28 Days ; #:4 X 119 GM Bottle; Refill: 6; For: Constipation; CRISTOPHER = N; Record Discussion/Summary - Schedule colonoscopy - Split prep [...] Gennaro Pulliam MD; Oct 26 2017 2:23PM ANCHORMAN (Author) documented in this encounter Plan of Treatment Upcoming Encounters Date Type Department Care Team (Late st Contact Info) Description 11/06/2024 12:30 PM ANCHORMAN Appointment [facility] [address] Danny Steele MD [address] [place] [phone] 11/06/2024 1:00 PM ANCHORMAN Appointment [facility] [place] [address] Danny Steele MD [address] [place] [phone] documented as of this encounter Visit Diagnoses Not on filedocumented in this encounter Care Teams Lithograph Designer Relationship Specialty Start Date End Date Zane Foy MD PCP - General 08/02/16 02/02/18 Codi Winters APNP Family & Internal Medicine [address] [address] PCP - General ADVANCED PRACTICE STAIN SPRAYER 02/03/18 11/23/22 Staci Sanchez MD Family & Internal Medicine [address] [address] [employer] Driver INTERVENTIONAL CARDIOLOGY 02/16/18 documented as of this encounter
--- OUTSIDE RECORDS SUMMARY | 2024-08-26 07:09 | XMS_ITS | Encounter Summary ---
Author Organization [facility] Address [address] [place] [address]. [place], [place] [id number] [place] [address] Care Team Providers Care Outside Salesperson Name Role Phone Zane Foy MD Primary Care Provider Zane Ruiz MD Primary Care Provider Donovan junior Encounter Details Date Type Department Care Team (Late st Contact Info) Description 05/31/2016 Abstract [facility] [place] [address] Zane Foy MD Social History Tobacco Use [...] (Late Contact Info) Description 11/06/2024 12:30 PM CLAM SHUCKER Appointment [facility] [address] Danny Steele MD [address] [place] [phone] 11/06/2024 1:00 PM CLAM SHUCKER Appointment [facility] [address] aDnny Steele MD [address] [place] [phone] documented as of this encounter Procedures Procedure Name Priority Date/Time Associated Diagnosis Comments URINE BACTERIA CULTURE Routine 3:48 PM CDT COMPREHENSIVE METABOLIC PANEL Routine 05/31/2016 3:48 PM CDT LIPID PANEL Routine 05/31/2016 3:48 PM CDT CBC W/DIFF AUTOMATED Routine 05/31/2016 3:48 PM CDT THYROID STIM HORMONE TSH Routine 05/31/2016 3:48 PM CDT documented in this encounter Results * CULTURE URINE (05/31/2016 3:48 PM CDT) SPEC DESCRIPTION URINE CLEAN CATCH 05/31/2016 10:12 PM CDT [facility] SPECIAL REQUESTS NO SPECIAL REQUEST 05/31/2016 10:12 PM CDT [facility] CULTURE RESULT POLYMICROBIAL GROWTH CONSISTENT WITH NORMAL GENITAL ROS. ?? SUSCEPTIBILITIES NOT ROUTINELY PERFORMED. 06/02/2016 11:09 AM CDT [facility] URINE SPECIMEN OBTAINED BY CLEAN CATCH PROCEDURE / Unknown 05/31/2016 3:48 PM CDT 05/31/2016 10:16 PM CDT us Generic Conversion Md [facility] - GENERAL ORDERABLES Final Result [facility] [address] [place] [address], * THYROID STIM HORMONE, TSH (05/31/2016 3:48 PM CDT) TSH 0.70 0.27 - 4.20 mIU/mL 05/31/2016 10:43 PM CDT [facility] SERUM OR PLASMA SPECIMEN / Unknown 05/31/2016 3:48 PM CDT 05/31/2016 10:16 PM CDT us Generic Conversion Md [facility] Final R esult [facility] [address] [place] [address], * (ABNORMAL) LIPID PANEL (05/31/2016 3:48 PM CDT) [facility] CHOLESTEROL 225(H) <200 MG/DL 05/31/2016 10:43 PM CDT [facility] Comment: NOTE: Acetaminophen, N Acetyl p benzoquinone imine (NAPQI), N acetylcysteine (NAC), Metamizole, 4 Aminoantipyrine (4 AAP) and 4 Methylamino antipyrine (4 MAP) at high concentrations can cause falsely low results on Lactate, Uric Acid, Cholesterol, Triglyceride, HDL, and Direct LDL. TRIGLYCERIDES 55 <150 MG/DL 05/31/2016 10:43 PM CDT [facility] HDL 78 >59 MG/DL 05/31/2016 10:43 PM CDT [facility] LDL (CALCULATED) 136(H) <100 MG/DL 05/31/2016 10:43 PM CDT [facility] NON HDL CHOLESTEROL 147(H) <130 MG/DL 05/31/2016 10:43 PM CDT [facility] Comment: NOTE: WHEN THE TRIGLYCERIDES ARE >200 mg/dL, NON HDL C IS A SECONDARY TARGET OF THERAPY, WITH A GOAL 30 mg/dL HIGHER THAN THE IDENTIFIED LDL C GOAL. CHOL/HDL RATIO 2.9 0.0 - 4.5 05/31/2016 10:43 PM CDT [facility] VLDL CALCULATION 11 5 - 55 MG/DL 05/31/2016 10:43 PM T [facility] LIPID INTERPRETATION 05/31/2016 10:43 PM CDT [facility] Comment: [facility] REPORT RECOMMENDATIONS: ?ADULT ?CHILD ??LOW RISK: ?CHOLESTEROL ? <200 ? <170 ?TRIGLYCERIDE ?<150 ?--- ?HDL ? >=60 ?--- ?LDL ? <100 ? <110 ??BORDERLINE: ?CHOLESTEROL ? 200-239 ?? 170-199 ?TRIGLYCERIDE ?150-199 ? --- ?HDL ?40-59 ?--- ?LDL ? 100-159 ?? 110-129 ??HIGH RISK: ?CHOLESTEROL ? >=240 ?>=200 ?TRIGLYCERIDE ?>=200 ? --- ?HDL ?<40 ?--- ?LDL ? >=160 ?>=130 05/31/2016 3:48 PM CDT 05/31/2016 10:16 PM CDT us Generic Conversion Md [facility] Final R esult [facility] [address] [place] [address], * COMPREHENSIVE METABOLIC PANEL (05/31/2016 3:48 PM CDT) [facility] GLUCOSE 92 70 - 99 mg/dL 05/31/2016 10:43 PM CDT [facility] BUN 14 8 - 23 mg/dL 05/31/2016 10:43 PM CDT [facility] CREATININE S/P/B 0.73 0.60 - 1.10 mg/dL 05/31/2016 10:43 PM CDT [facility] SODIUM S/P/B 139 136 - 145 mmol/L 05/31/2016 10:43 PM CDT [facility] POTASSIUM S/P/B 4.4 3.5 - 5.1 mmol/L 05/31/2016 10:43 PM CDT [facility] CHLORIDE S/P/B 100 98 - 107 mmol/L 05/31/2016 10:43 PM CDT [facility] CO2 28 22 - 29 mmol/L 05/31/2016 10:43 PM CDT [facility] BILIRUBIN TOTAL S/P/B 0.5 0.2 - 1.2 mg/dL 05/31/2016 10:43 PM CDT [facility] CALCIUM S/P/B 9.8 8.6 - 10.2 mg/dL 05/31/2016 10:43 PM CDT [facility] ALKALINE PHOSPHATASE S/P/B 87 35 - 104 U/L 05/31/2016 10:43 PM CDT [facility] AST 18 0 - 32 U/L 05/31/2016 10:43 PM CDT [facility] TOTAL PROTEIN S/P/B 8.0 6.4 - 8.3 g/dL 05/31/2016 10:43 PM CDT [facility] ALBUMIN S/P/B 4.5 3.5 - 5.2 g/dL 05/31/2016 10:43 PM CDT [facility] ALT 12 0 - 33 U/L 05/31/2016 10:43 PM CDT [facility] GLOBULIN 3.5 2.3 - 3.6 g/dL 05/31/2016 10:43 PM CDT [facility] A/G RATIO 1.3 1.0 - 2.0 05/31/2016 10:43 PM CDT [facility] ANION GAP 15 8 - 20 05/31/2016 10:43 PM CDT [facility] EGFR NON-AFR. AMER. >60 >60 mL/min/1.7 3m'2 05/31/2016 10:43 PM CDT [facility] EGFR AFR. AMER. >60 >60 mL/min/1.7 3m'2 05/31/2016 10:43 PM CDT [facility] Comment: NOTE: eGFR is not calculated for patients <18 years of age. This is an estimated GFR (CKD EPI) and should not be used for calculating drug doses. 05/31/2016 3:48 PM CDT 05/31/2016 10:16 PM CDT us Generic Conversion Md [facility] Final R esult [facility] [address] [place] [address], * (ABNORMAL) CBC W/DIFF AUTOMATED (05/31/2016 3:48 PM CDT) WBC 5.0 4.8 - 10.8 X10'3/uL 05/31/2016 10:21 PM CDT [facility] RBC 4.95 4.20 - 5.40 X10'6/uL 05/31/2016 10:21 PM CDT [facility] HGB 13.6 12.0 - 16.0 g/dL 05/31/2016 10:21 PM CDT [facility] HCT 42.7 38.0 - 48.0 % 05/31/2016 10:21 PM CDT [facility] MCV 86.3 81.0 - 99.0 fL 05/31/2016 10:21 PM CDT [facility] MCH 27.5 27.0 - 31.0 pg 05/31/2016 10:21 PM CDT [facility] MCHC 31.9(L) 32.0 - 36.0 g/dL 05/31/2016 10:21 PM CDT [facility] RDW 14.2 11.5 - 14.5 % 05/31/2016 10:21 PM CDT [facility] PLT 222 130 - 400 X10'3/uL 05/31/2016 10:21 PM CDT [facility] MPV 10.9 9.3 - 12.2 fL 05/31/2016 10:21 PM CDT [facility] DIFFERENTIAL TYPE AUTOMATED 05/31/2016 10:21 PM CDT [facility] NEUTROPHILS % 47.0 43.0 - 65.0 % 05/31/2016 10:21 PM CDT [facility] LYMPHOCYTES % 40.6 20.0 - 46.0 % 05/31/2016 10:21 PM CDT [facility] MONOCYTES % 9.2 5.0 - 12.0 % 05/31/2016 10:21 PM CDT [facility] EOSINOPHILS 2.6 1.0 - 3.0 % 05/31/2016 10:21 PM CDT [facility] BASOPHILS 0.4 0.0 - 1.0 % 05/31/2016 10:21 PM CDT [facility] IMMATURE GRANS % 0.2 0.0 - 1.0 % 05/31/2016 10:21 PM CDT [facility] 05/31/2016 3:48 PM CDT 05/31/2016 10:16 PM CDT us Generic Conversion Md [facility] Final R esult Performing Organization Address City/State/[facility] Co de Phone Number [facility] [address] [place] [address], documented in this encounter Visit Diagnoses Diagnosis Other chest pain documented in this encounter Care Teams Outside Salesperson Relationship Specialty Start Date End Date Zane Foy MD PCP - General 08/02/16 02/02/18 Zane Foy MD PCP - General 05/31/16 08/01/16 documented as of this encounter
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
--- OUTSIDE RECORDS SUMMARY | 2024-08-26 07:09 | XMS_ITS | Encounter Summary ---
Author Organization [facility] Address [address] [place] [address]. [place] [address] [place] [address] Care Team Providers Care Select Banker Name Role Phone Zane Foy MD Primary Care Provider Donovan junior Encounter Details Date Type Department Care Team (Late st Contact Info) Description 10/20/2017 Orders Only [facility] [place], [place] [phone] Codi Winters, JT [address] [place] [phone] Social History Tobacco Use Types Packs/Day Years [...] st Contact Info) Description 11/06/2024 12:30 PM STEAM FITTER HELPER Appointment [facility] [address] Danny Steele MD [address] [place] [phone] 11/06/2024 1:00 PM STEAM FITTER HELPER Appointment [facility] [place], [place] [address] Danny Steele MD [facility] [place] [phone] documented as of this encounter Results * URIC ACID BLOOD (10/20/2017 1:55 PM STEAM FITTER HELPER) Pathologist [facility] URIC ACID 4.8 2.6 - 6.0 MG/DL 10/20/2017 9:[address] [facility] 10/20/2017 1:55 PM STEAM FITTER HELPER [facility] Final Resul t [facility] [address] [place] [address], [place] [phone] * TSH W/REFLEX (10/20/2017 1:55 PM STEAM FITTER HELPER) Pathologist [facility] TSH 0.698 0.358 - 3.74 uIU/ML 10/20/2017 9:[address] [facility] Comment: HIGH DOSES OF BIOTIN MAY INTERFERE WITH THIS TEST RESULT. CORRELATION TO CLINICAL HISTORY AND PRESENTATION RECOMMENDED. FREE T4 NOT INDICATED 10/20/2017 1:55 PM STEAM FITTER HELPER [facility] Final Resul t Performing Organization Address City/[facility]/ZIP Co de Phone Number [facility] [address] [place] [address], [place] [phone] * (ABNORMAL) LIPID PANEL (10/20/2017 1:55 PM STEAM FITTER HELPER) Pathologist [facility] CHOLESTEROL 200(H) <200 MG/DL 10/20/2017 9:[address] [facility] TRIGLYCERIDES 50 <150 MG/DL 10/20/2017 9:[address] [facility] HDL 70 >40.0 MG/DL 10/20/2017 9:45 PM [facility] LDL (CALCULATED) 120.0(H) <100 MG/L 10/20/19 18 9:45 PM [facility] NON HDL CHOLESTEROL 130(H) <130 MG/DL 10/20/2017 9:45 PM [facility] CHOL/HDL RATIO 2.9 0.0 - 4.5 10/20/2017 9:45 PM [facility] VLDL CALCULATION 10 5 - 55 MG/DL 10/20/2017 9:45 PM [facility] LIPID INTERPRETATION 10/20/2017 9:45 PM [facility] Comment: [facility] REPORT RECOMMENDATIONS: ?ADULT ?CHILD ??LOW RISK: ?CHOLESTEROL ? <200 ? <170 ?TRIGLYCERIDE ?<150 ?--- ?HDL ? >=60 ?--- ?LDL ? <100 ? <110 ??BORDERLINE: ?CHOLESTEROL ? 200-239 ?? 170-199 ?TRIGLYCERIDE ?150-199 ? --- ?HDL ?40-59 ?--- ?LDL ? 100-159 ?? 110-129 ??HIGH RISK: ?CHOLESTEROL ? >=240 ?>=200 ?TRIGLYCERIDE ?>=200 ? --- ?HDL ?<40 ?--- ?LDL ? >=160 ?>=130 10/20/2017 1:55 PM STEAM FITTER HELPER us [facility] Final Resul t [facility] [address] [place] [address], * (ABNORMAL) COMPREHENSIVE METABOLIC PANEL (10/20/2017 1:55 PM STEAM FITTER HELPER) GLUCOSE 82 70 - 99 MG/DL 10/20/2017 9:[address] [facility] BUN 13 7 - 18 MG/DL 10/20/2017 9:[address] [facility] CREATININE S/P/B 0.64 0.55 - 1.02 MG/DL 10/20/2017 9:45 PM [facility] SODIUM S/P/B 144 136 - 145 MMOL/L 10/20/2017 9:[address] [facility] POTASSIUM S/P/B 4.4 3.5 - 5.1 MMOL/L 10/20/2017 9:[address] [facility] CHLORIDE S/P/B 109(H) 100 - 108 MMOL/L 10/20/2017 9:45 PM [facility] CO2 27.9 21 - 32 MMOL/L 10/20/2017 9:45 PM [facility] CALCIUM S/P/B 9.2 8.5 - 10.1 MG/DL 10/20/2017 9:45 PM [facility] BILIRUBIN TOTAL S/P/B 0.5 0.2 - 1.2 MG/DL 10/20/2017 9:45 PM [facility] TOTAL PROTEIN S/P/B 7.9 6.4 - 8.2 G/DL 10/20/2017 9:45 PM [facility] ALBUMIN S/P/B 3.8 3.4 - 5.0 G/DL 10/20/2017 9:45 PM [facility] AST 15 15 - 37 U/L 10/20/2017 9:45 PM [facility] ALT 21 14 - 55 U/L 10/20/2017 9:45 PM [facility] ALKALINE PHOSPHATASE S/P/B 89 50 - 136 U/L 10/20/2017 9:45 PM [facility] ANION GAP 11.5 8 - 20 MMOL/L 10/20/2017 9:45 PM [facility] BUN CREATININE RATIO 20.3 6 - 26 10/20/2017 9:45 PM [facility] A/G RATIO 0.9(L) 1.0 - 2.0 RATIO 10/20/2017 9:45 PM [facility] EGFR NON-AFR. AMER. >60 >60 ML/MIN/1.7 3 M2 10/20/2017 9:45 PM [facility] EGFR AFR. AMER. >60 >60 ML/MIN/1.7 3 M2 10/20/2017 9:45 PM [facility] Comment: NOTE: eGFR is not calculated for patients <18 years of age. This is an estimated GFR (CKD EPI) and should not be used for calculating drug doses. 10/20/2017 1:55 PM STEAM FITTER HELPER Codi Winters APNP LABORATORY Final Resul t [facility] [address] [place] [address], [place] [phone] * (ABNORMAL) CBC, MANUAL DIFF (10/20/2017 1:55 PM STEAM FITTER HELPER) WBC 4.3(L) 4.8 - 10.8 x10'3/uL 10/20/2017 9:[address] [facility] RBC 4.81 4.20 - 5.40 x10'6/uL 10/20/2017 9:[address] [facility] HGB 13.1 12.0 - 16.0 G/DL 10/20/2017 9:50 PM [facility] HCT 42.9 38.0 - 48.0 % 10/20/2017 9:[address] [facility] MCV 89.2 81.0 - 99.0 FL 10/20/2017 9:[address] [facility] MCH 27.2 27.0 - 31.0 PG 10/20/2017 9:[address] [facility] MCHC 30.5(L) 32.0 - 36.0 G/DL 10/20/2017 9:[address] [facility] RDW 14.3 11.5 - 14.5 % 10/20/2017 9:[address] [facility] PLT 210 130 - 400 x10'3/uL 10/20/2017 9:50 [address] [facility] MPV 11.1 9.3 - 12.2 FL 10/20/2017 9:[address] [facility] EOSINOPHILS 5(H) 1.0 - 3.0 % 10/20/2017 9:59 [address] [facility] SEG NEUTROPHILS 46 43.0 - 65.0 % 10/20/2017 9:59 [address] [facility] LYMPHOCYTES 44 20.0 - 46.0 % 10/20/2017 9:[address] [facility] MONOCYTES 5 5.0 - 12.0 % 10/20/2017 9:[address] [facility] DIFFERENTIAL TYPE MANUAL 018 9:[address] [facility] 10/20/2017 1:55 PM STEAM FITTER HELPER us [facility] Final Resul t [facility] [address] [place] [address], [place] [phone] documented in this encounter Visit Diagnoses Diagnosis Encounter for general adult medical examination without abnormal findings Unspecified general medical examination Other chest pain Shortness of breath Constipation Unspecified constipation Pure hypercholesterolemia documented in this encounter Care Teams Select Banker Relationship Specialty Start Date End Date Zane Foy MD PCP - General 08/02/16 02/02/18 documented as of this encounter
--- OUTSIDE RECORDS SUMMARY | 2024-08-26 07:09 | XMS_ITS | Encounter Summary ---
Author Organization [facility] Address [address] [place] [address]. [place], [place] [address] [place] [address] Care Team Providers Care Conductor/Engineer Name Role Phone Zane Foy MD Primary Care Provider Codi Higgins Primary Care Provider [phone] Staci Sanchez MD Unavailable [phone] Encounter Details Date Type Department Care Team (Latest Contact Info) Description 10/27/2017 Abstract [facility] Medical [facility] [...] st Contact Info) Description 11/06/2024 12:30 PM LETTUCE TRIMMER Appointment [facility] [place], [place] [phone] Danny Steele MD [facility] [phone] 11/06/2024 1:00 PM LETTUCE TRIMMER Appointment [facility] [place], [place] [address] Danny Steele MD [facility] [address] [phone] documented as of this encounter Visit Diagnoses Not on filedocumented in this encounter Care Teams Conductor/Engineer Relationship Specialty Start Date End Date Zane Foy MD PCP - General 08/02/16 02/02/18 Codi Winters APNP Family & Internal Medicine [address] [address] PCP - General ADVANCED PRACTICE CLIENT ADMINISTRATOR 02/03/18 11/23/22 Staci Sanchez MD [facility] [address] [address] Nadira Apartment Manager INTERVENTIONAL CARDIOLOGY 02/16/18 documented as of this encounter
--- OUTSIDE RECORDS SUMMARY | 2024-08-26 07:09 | XMS_ITS | Encounter Summary ---
Author Organization [facility] Address [address] [place] [address]. [place], [place] [address] [place] [address] Care Team Providers Care Telegrapher Agent Name Role Phone Zane Foy MD Primary Care Provider Codi Higgins Primary Care Provider [phone] Staci Sanchez MD Unavailable [phone] Encounter Details Date Type Department Care Team (Latest Contact Info) Description 04/27/2017 Abstract [facility] Medical [facility] Social [...] Contact Info) Description 11/06/2024 12:30 PM DIGITAL MEDIA PRODUCER Appointment [facility] [place], [place] [address] Danny Steele MD [facility] [address] [phone] 11/06/2024 1:00 PM DIGITAL MEDIA PRODUCER Appointment [facility] [place], [place] [address] Danny Steele MD [facility] [address] [phone] documented as of this encounter Visit Diagnoses Not on filedocumented in this encounter Care Teams Telegrapher Agent Relationship Specialty Start Date End Date Zane Foy MD PCP - General 08/02/16 02/02/18 Codi Winters APNP Family & Internal Medicine [address] [address] PCP - General ADVANCED PRACTICE POWDER WORKER TNT 02/03/18 11/23/22 Staci Sanchez MD [facility] & Internal [address] [address] Nadira Nuclear Medicine Specialist INTERVENTIONAL CARDIOLOGY 02/16/18 documented as of this encounter
--- OUTSIDE RECORDS SUMMARY | 2024-08-26 07:09 | XMS_ITS | Encounter Summary ---
Author Organization [facility] Address [address] [place] [address]. [place] [address] [place] [address] Care Team Providers Care Maintenance Groundskeeper Name Role Phone Zane Foy MD Primary Care Provider Donovan junior Encounter Details Date Type Department Care Team (Late st Contact Info) Description 07/09/2017 Scan EDNA CONVERSION [place], [place] [id number] , Generic ConversionMD Social History Tobacco Use [...] st Contact Info) Description 11/06/2024 12:30 PM CONTROL PANEL TESTER Appointment [facility] [place], [place] [phone] Danny Steele MD [address] [place] [address] [phone] 11/06/2024 1:00 PM CONTROL PANEL TESTER Appointment [facility] [place], [place] 4632[address] Danny Steele MD [address] [place] [address] [phone] documented as of this encounter Visit Diagnoses Not on filedocumented in this encounter Care Teams Maintenance Groundskeeper Relationship Specialty Start Date End Date Zane Foy MD PCP - General 08/02/16 02/02/18 documented as of this encounter
--- OUTSIDE RECORDS SUMMARY | 2024-08-26 07:09 | XMS_ITS | Encounter Summary ---
Author Organization [facility] Address [facility]. [place], [place] [address] [place] [address] Care Team Providers Care Certified Alcohol Counselor Name Role Phone Zane Foy MD Primary Care Provider Codi Higgins Primary Care Provider [phone] Staci Sanchez MD Unavailable [phone] Encounter Details Date Type Department Care Team (Latest Contact Info) Description 11/19/2016 Abstract [facility] Medical [facility] , Cheko Fischer MD Social History Tobacco Use Types Packs/Day Years Used Date Smoking Tobacco: Never Assessed Comments Unknown Sex and Gender Information Value Date Recorded Sex Assigned at Not on file Legal Sex Female 8:22 PM CDT Gender Identity Not on file Sexual Orientation Straight 06/27/2024 8: 00 AM CDT documented as of this encounter Progress Notes * Generic Amado García MD - 11/19/2016 9:13 AM CDT Message Recorded as Task Date: 11/18/2016 02:59 PM, Created By: Yessenia Brandt Task Name: Medical Complaint Callback Assigned To: [facility] [place] Regarding Patient: Saray Whitten, Status: In Progress Comment: Yessenia Brandt - 18 Nov 2016 2:59 PM TASK CREATED c/o dry cough , head congestion since tuesday and diarrhea started today please advise jared perez #: [phone] Zane Foy - 18 Nov 2016 4:54 PM TASK REASSIGNED: Previously Assigned To Zane Foy Respiratory symptoms mixed with stomach symptoms are almost always viral syndromes that you cannot make go away quickly. We usually just treat the symptoms as best we can. OTC as needed although Rx cough med with codiene might be a good addition. Cheratussin AC 180ml Jaja Ferguson - 18 Nov 2016 5:02 PM TASK EDITED [id number] Oumou FergusonJaja - 18 Nov 2016 5:02 PM TASK IN PROGRESS Message: pt notified and rx ordered Signatures Electronically signed by : Nydia Simmons, ; Nov 19 2016 9:14AM TEMPERATURE LOGGING OPERATOR (Author) documented in this encounter Plan of Treatment Upcoming Encounters Date Type Department Care Team (Late st Contact Info) Description 11/06/2024 12:30 PM TEMPERATURE LOGGING OPERATOR Appointment [facility] [place], [place] [address] Danny Steele MD [address] [place] [address] [phone] 11/06/2024 1:00 PM TEMPERATURE LOGGING OPERATOR Appointment [facility] [place], [place] [phone] Danny Steele MD [address] [place] [address] [phone] documented as of this encounter Visit Diagnoses Not on filedocumented in this encounter Care Teams Certified Alcohol Counselor Relationship Specialty Start Date End Date Zane Foy MD PCP - General 08/02/16 02/02/18 Codi Winters APNP Family & Internal Medicine [address] [phone] PCP - General ADVANCED PRACTICE LADIES SUIT OPERATOR 02/03/18 11/23/22 Staci Sanchez MD Family & Internal Medicine [address] [phone] Nadira Advanced Developer INTERVENTIONAL CARDIOLOGY 02/16/18 documented as of this encounter
--- OUTSIDE RECORDS SUMMARY | 2024-08-26 07:09 | XMS_ITS | Encounter Summary ---
Author Organization [facility] Address [address] [place] [address]. [place] [address] [place] [address] Care Team Providers Care Patent Searcher Name Role Phone Zane Foy MD Primary Care Provider Zane Ruiz MD Primary Care Provider Zane Ruiz MD Primary Care Provider Codi Higgins Primary Care Provider [phone] Staci Sanchez MD Unavailable [phone] Encounter Details Date Type Department Care Team (Latest Contact Info) Description 12/15/2015 Abstract [facility] Medical Group Social History Tobacco Use Types [...] st Contact Info) Description 11/06/2024 12:30 PM MACHINE BOSS Appointment [facility] [place], [place] [address] Danny Steele MD [address] [place] [address] [phone] 11/06/2024 1:00 PM MACHINE BOSS Appointment [facility] [place], [place] [address] Danny Steele MD [address] [place] [phone] documented as of this encounter Visit Diagnoses Not on filedocumented in this encounter Care Teams Patent Searcher Relationship Specialty Start Date End Date Zane Foy MD PCP - General 08/02/16 02/02/18 Zane Foy MD PCP - General 05/31/16 08/01/16 Zane Foy MD PCP - General 11/08/15 05/30/16 Codi Winters APNP Family & Internal Medicine [address] [address] PCP - General ADVANCED PRACTICE OFFAL BALER 02/03/18 11/23/22 Staci Sanchez MD [facility] & Internal [address] [address] Nadira Assisted Living Nursing Director INTERVENTIONAL CARDIOLOGY 02/16/18 documented as of this encounter
--- OUTSIDE RECORDS SUMMARY | 2024-08-26 07:09 | XMS_ITS | Encounter Summary ---
Author Organization [facility] Address [address] [place] [address]. [place], [place] [address] [place] [address] Care Team Providers Care Supervisor Aluminum Fabrication Name Role Phone Zane Foy MD Primary Care Provider Codi Higgins Primary Care Provider [phone] Staci Sanchez MD Unavailable [phone] Encounter Details Date Type Department Care Team (Latest Contact Info) Description 08/16/2016 Abstract [facility] Medical Group Social History Tobacco [...] Notes * Generic Conversion MD Raquel - 08/16/2016 12:36 PM CST Message Recorded as Task Date: 08/16/2016 09:27 AM, Created By: Shrery Falk Task Name: Medical Complaint Callback Assigned To: [facility] Team Law Regarding Patient: Saray Whitten, Status: In Progress Comment: Sherry Falk - 16 Aug 2016 9:27 AM TASK CREATED Caller: Self; Medical Complaint; c/o coughing-dry, chest tightness, pressure headache, chills, started Tuesday NKDA, uses [facility] Zane Foy - 16 Aug 2016 10:00 AM TASK REASSIGNED: Previously Assigned To Zane Foyatusrosalind AC 180ml Marianne Diezt - 16 Aug 2016 12:35 PM TASK IN PROGRESS Message: patient notfiied , rx sent to pharmacy Plan 1. Cheratussin AC 100-10 MG/5ML Oral Syrup; TAKE 5 ML EVERY 4 TO 6 HOURS NEEDED FOR COUGH Rx By: Zane Foy; Dispense: 6 Days ; #:180 ML; Refill: 0; For: URI (upper respiratory infection); CRISTOPHER = N; Print Rx; Msg to Pharmacy: call [phone]; Last Updated By: Marianne Dietz; 08/16/2016 12:38:26 PM 2. Zithromax Z-Neville 250 MG Oral Tablet (Azithromycin); TAKE 2 TABLETS ON DAY 1 THEN TAKE 1 TABLET A DAY FOR 4 DAYS Rx By: Zane Foy; Dispense: 0 Days ; #:1 X 6 Tablet Disp Pack; Refill: 0; For: URI (upper respiratory infection); CRISTOPHER = N; Sent To: [facility]; Last Updated By: Marianne Dietz; 08/16/2016 12:38:26 PM Signatures Electronically signed by : Marianne Dietz MA; Aug 16 2016 12:38PM AUTOMOBILE BRAKES BONDER (Author) documented in this encounter Plan of Treatment Upcoming Encounters Date Type Department Care Team (Late st Contact Info) Description 11/06/2024 12:30 PM AUTOMOBILE BRAKES BONDER Appointment [facility] [place] [address] Danny Steele MD [address] [place] [phone] 11/06/2024 1:00 PM AUTOMOBILE BRAKES BONDER Appointment [facility] [place] [address] Danny Steele MD [address] [place] [address] [phone] documented as of this encounter Visit Diagnoses Not on filedocumented in this encounter Care Teams Supervisor Aluminum Fabrication Relationship Specialty Start Date End Date Zane Foy MD PCP - General 08/02/16 02/02/18 Codi Winters APNP [facility] & [facility] Medicine [address] [address] PCP - General ADVANCED PRACTICE CABINET FINISHER 02/03/18 11/23/22 Staci Sanchez MD [facility] & Internal [address] [address] Nadira Chest Painting Leader INTERVENTIONAL CARDIOLOGY 02/16/18 documented as of this encounter
--- OUTSIDE RECORDS SUMMARY | 2024-08-26 07:09 | XMS_ITS | Encounter Summary ---
Author Organization [facility] Address [address] [place] [address]. [place], [place] [phone] [place] [address] Care Team Providers Care Cnc Manufacturing Engineer Name Role Phone Zane Foy MD Primary Care Provider Codi Higgins Primary Care Provider [phone] Staci Sanchez MD Unavailable [phone] Encounter Details Date Type Department Care Team (Latest Contact Info) Description 10/24/2017 Abstract [facility] Medical Group , Cheko Fischer MD [...] encounter Progress Notes * JT Fernando - 10/24/2017 12:42 PM CST Message Cholesterol still slightly elevated. Stable from previous visits. HDL normal, so that's good. Need to continue low cholesterol diet. WBC just very slightly low. Nothing to be concerned about, but would like to repeat in 3 months. Labs otherwise normal. patyient notified, order mailed -[facility] Verified Results *Urine dip auto In Office [id number] 12:01PM Codi Winters Test Name Result Flag Reference Color Straw Clarity Clear Glucose Negative Bilirubin Negative Ketones Negative Specific Deweese 1.020 Blood Negative pH 7.0 5.0 - 7.0 Protein Negative Urobilinogen 0.2 E.U./dL Nitrites neg Leukocytes Small-1+ A Urine Culture 21Oct2017 10:40AM Codi Winters Test Name Result Flag Reference Urine Culture (Report) SPECIMEN DESCRIPTION - URINE VOIDED SPECIAL REQUESTS - NO SPECIAL REQUEST CULTURE - POLYMICROBIAL GROWTH CONSISTENT WITH NORMAL GENITAL ROS. SUSCEPTIBILITIES NOT CULTURE - ROUTINELY PERFORMED. REPORT STATUS - FINAL 10/24/2017 CBC W Manual Differential [id number] 01:55PM Codi Winters Test Name Result Flag [...] MANUAL Compr Metabolic Prof ( CMP ) [id number] 01:55PM Codi Winters Test Name Result Flag [...] not be used for calculating drug doses. Lipid Profile 20Oct2017 01:55PM Codi Winters Test Name Result Flag Reference CHOLESTEROL 200 MG/DL H <200 TRIGLYCERIDE 50 MG/DL <150 HDL CHOLESTEROL 70 MG/DL >40.0 CHOL/HDL RATIO 2.9 0.0-4.5 VLDL Cholesterol 10 MG/DL 5-55 LDL CALCULATED 120.0 MG/L H <100 NON HDL CHOLESTEROL 130 MG/DL H <130 INTERPRETATION (Report) NIH CONCENSUS REPORT RECOMMENDATIONS: ADULT CHILD LOW RISK: CHOLESTEROL <200 <170 TRIGLYCERIDE <150 --- HDL >=60 --- LDL <100 <110 BORDERLINE: CHOLESTEROL 200-239 170-199 TRIGLYCERIDE 150-199 --- HDL 40-59 --- LDL 100-159 110-129 HIGH RISK: CHOLESTEROL >=240 >=200 TRIGLYCERIDE >=200 --- HDL <40 --- LDL >=160 >=130 TSH W Reflex Free T4 [id number] 01:55PM Codi Winters Test Name Result Flag Reference TSH w Reflex Free T4 0.698 uIU/ML 0.358-3.74 HIGH DOSES OF BIOTIN MAY INTERFERE WITH THIS TEST RESULT. CORRELATION TO CLINICAL HISTORY AND PRESENTATION RECOMMENDED. FREE T4 NOT INDICATED Uric Acid [id number] 01:55PM Codi Winters Test Name Result Flag Reference Uric Acid 4.8 MG/DL 2.6-6.0 Signatures Electronically signed by : Marianne Dietz MA; Oct 24 2017 1:04PM JOB TRAINING SPECIALIST (Author) documented in this encounter Plan of Treatment Upcoming Encounters Date Type Department Care Team (Late st Contact Info) Description 11/06/2024 12:30 PM JOB TRAINING SPECIALIST Appointment [facility] [place] [address] Danny Steele MD [address] [address] 11/06/2024 1:00 PM JOB TRAINING SPECIALIST Appointment [facility] [place] [address] [facility] [address] [phone] documented as of this encounter Visit Diagnoses Not on filedocumented in this encounter Care Teams Cnc Manufacturing Engineer Relationship Specialty Start Date End Date Zane Foy MD PCP - General 08/02/16 02/02/18 Codi Winters APNP Family & Internal Medicine [address] [phone] PCP - General ADVANCED PRACTICE OFFSET PRESS ASSISTANT 02/03/18 11/23/22 Staci Sanchez MD Family & Internal Medicine [address] [phone] Nadira Vector Control Assistant INTERVENTIONAL CARDIOLOGY 02/16/18 documented as of this encounter
--- OUTSIDE RECORDS SUMMARY | 2024-08-26 07:09 | XMS_ITS | Encounter Summary ---
Author Organization [facility] Address [address] [place] [address]. [place] [address] [place] [address] Care Team Providers Care Inspector Tubes Name Role Phone Zane Foy MD Primary Care Provider Zane Ruiz MD Primary Care Provider Zane Ruiz MD Primary Care Provider Codi Higgins Primary Care Provider [phone] Staci Sanchez MD Unavailable [phone] Encounter Details Date Type Department Care Team (Latest Contact Info) Description 01/16/2016 Abstract [facility] Medical Group Social History Tobacco Use [...] st Contact Info) Description 11/06/2024 12:30 PM BATTING MACHINE OPERATOR INSULATION Appointment [facility] [place], [place] [address] Danny Steele MD [address] [place] [address] [phone] 11/06/2024 1:00 PM BATTING MACHINE OPERATOR INSULATION Appointment [facility] [place], [place] [address]989 Danny Steele MD [address] [place] [phone] documented as of this encounter Visit Diagnoses Not on filedocumented in this encounter Care Teams Inspector Tubes Relationship Specialty Start Date End Date Zane Foy MD PCP - General 08/02/16 02/02/18 Zane Foy MD PCP - General 05/31/16 08/01/16 Zane Foy MD PCP - General 11/08/15 05/30/16 Codi Winters APNP Family & Internal Medicine [address] [address] PCP - General ADVANCED PRACTICE PALLIATIVE NURSE 02/03/18 11/23/22 Staci Sanchez MD [facility] & Internal [address] [address] Nadira Bookmobile Clerk INTERVENTIONAL CARDIOLOGY 02/16/18 documented as of this encounter
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
--- OUTSIDE RECORDS SUMMARY | 2024-08-26 07:09 | XMS_ITS | Encounter Summary ---
Author Organization [facility] Address [address] [place] [address]. [place] [address] [place] [address] Care Team Providers Care Gauger Chief Name Role Phone Zane Foy MD Primary Care Provider Donovan junior Encounter Details Date Type Department Care Team (Latest Contact Info) Description 10/21/2017 6:44 PM CASH APPLICATION CLERK - 10/21/2017 11:59 PM CASH APPLICATION CLERK Hospital Encounter [facility] [place], [place] [phone] Codi Winters, [facility] [place] [address] Discharge Disposition: Home or Self Care (Routine [...] st Contact Info) Description 11/06/2024 12:30 PM CASH APPLICATION CLERK Appointment [facility] [place], [place] [address] Danyn Steele MD [facility] [phone] 11/06/2024 1:00 PM CASH APPLICATION CLERK Appointment [facility] [place] [address] Danny Steele MD [address] [phone] documented as of this encounter Procedures Procedure Name Priority Date/Time Associated Diagnosis Comments URINE BACTERIA CULTURE Routine 10/21/2017 10:40 AM CASH APPLICATION CLERK Other abnormal findings in urine documented in this encounter Results * CULTURE URINE (10/21/2017 10:40 AM CASH APPLICATION CLERK) SPEC DESCRIPTION URINE VOIDED 10/21/2017 6:45 PM CASH APPLICATION CLERK [facility] SPECIAL REQUESTS NO SPECIAL REQUEST 10/21/2017 6:45 PM CASH APPLICATION CLERK [facility] CULTURE RESULT POLYMICROBIAL GROWTH CONSISTENT WITH NORMAL GENITAL ROS. ?? SUSCEPTIBILITIES NOT ROUTINELY PERFORMED. 10/24/2017 9:43 AM CASH APPLICATION CLERK [facility] URINE SPECIMEN FROM URETHRA / Unknown 10/21/2017 10:40 AM CASH APPLICATION CLERK 10/21/2017 7:16 PM CASH APPLICATION CLERK Codi WATERS MICROBIOLOGY - GENERAL [place] Final Result [facility] [address] [place] [address], documented in this encounter Visit Diagnoses Diagnosis Other abnormal findings in urine documented in this encounter Care Teams Gauger Chief Relationship Specialty Start Date End Date Zane Foy MD PCP - General 08/02/16 02/02/18 documented as of this encounter
--- OUTSIDE RECORDS SUMMARY | 2024-08-26 07:09 | XMS_ITS | Encounter Summary ---
Author Organization [facility] Address [address] [place] [address]. [place], [place] [id number] [place] [address] Care Team Providers Care Pulpwood Cutter Name Role Phone Zane Foy MD Primary Care Provider Zane Ruiz MD Primary Care Provider Zane Ruiz MD Primary Care Provider Codi Higgins Primary Care Provider [phone] Staci Sanhcez MD Unavailable [phone] Encounter Details Date Type Department Care Team (Latest Contact Info) Description 12/10/2015 Abstract [facility] Social History Tobacco Use Types Packs/Day Years Used Date Smoking Tobacco: Never Assessed Comments Unknown Sex and Gender Information Value Date Recorded Sex Assigned at Not on file Legal Sex Female 8:22 PM CDT Gender Identity Not on file Sexual Orientation Straight 06/27/2024 8: 00 AM CDT documented as of this encounter Progress Notes * Generic Conversion MD Raquel - 12/10/2015 1:40 PM CDT Message Recorded as Task Date: 12/09/2015 11:11 AM, Created By: Zane Foy Task Name: Follow Up Assigned To: [facility] Team Law Regarding Patient: Saray Whitten, Status: In Progress Comment: Zane Foy - 09 Dec 2015 11:11 AM TASK CREATED MRI shows what would be considered more chronic degenerative changes at the L4-5 L5-S1 levels. There no changes that are obviously new or acute. Her persisting pain is still likely a muscular or other soft tissue problem that hopefully will resolve with formal physical therapy as we had discussed. Jaja Ferguson - 09 Dec 2015 2:01 PM TASK IN PROGRESS Jaja Ferguson - 09 Dec 2015 2:01 PM TASK EDITED [id number] Message: patient notified -sjs Signatures Electronically signed by : Marianne Dietz MA; Dec 10 2015 1:40PM STRADDLE TRUCK OPERATOR (Author) documented in this encounter Plan of Treatment Upcoming Encounters Date Type Department Care Team (Late st Contact Info) Description 11/06/2024 12:30 PM STRADDLE TRUCK OPERATOR Appointment [facility] [place], [place] [address] Danny Steele MD [address] [place] [phone] 11/06/2024 1:00 PM STRADDLE TRUCK OPERATOR Appointment [facility] [place], [place] [phone] Danny Steele MD [address] [place] [phone] documented as of this encounter Visit Diagnoses Not on filedocumented in this encounter Care Teams Pulpwood Cutter Relationship Specialty Start Date End Date Zane Foy MD PCP - General 08/02/16 02/02/18 Zane Foy MD PCP - General 05/31/16 08/01/16 Zane Foy MD PCP - General 11/08/15 05/30/16 Codi Winters APNP Family & Internal Medicine [place] [address] [place] [address] PCP - General AD[employer]ED PRACTICE CHIEF TRANSFER AND PUMPHOUSE OPERATOR 02/03/18 11/23/22 Staci Sanchez MD Family & Internal Medicine [place] [address] [place] [address] Nadira Finance Consultant INTERVENTIONAL CARDIOLOGY 02/16/18 documented as of this encounter
--- OUTSIDE RECORDS SUMMARY | 2024-08-26 07:09 | XMS_ITS | Encounter Summary ---
Author Organization [facility] Address [address] [place] [address]. [place], [place] [id number] [place] [address] Care Team Providers Care Family Therapist Name Role Phone Zane Foy MD Primary Care Provider Codi Higgins Primary Care Provider [phone] Staci Sanchez MD Unavailable [phone] Encounter Details Date Type Department Care Team (Latest Contact Info) Description 10/31/2017 Abstract [facility] Vilma Pulliam MD [address] [facility] [address] [place] [address] Social History Tobacco Use Types Packs/Day Years [...] AM CDT documented as of this encounter H&P Notes * Vilma Pulliam MD - 10/31/2017 8:37 PM CST [address] [address] Patient Name: SARAY WHITTEN Date of : 1960 Med Rec #: [id number] Date of Service: 10/31/2017 Disch Date: HISTORY AND PHYSICAL INTERVAL NOTE: I have reviewed Saray Whitten History Physical which was performed within the past 30 days. After examining Saray Whitten, no change has occurred in the patient's condition since the Hwas completed. Informed Consent Discussion: Risks, benefits, alternatives as well as the consequences of not performing the surgery/procedure were discussed with the patient and/or family/personal promotions representative. Questions were answered and the patient/family/personal promotions representative verbalized understanding and desires to proceed. 57 yo AAF with h/o chronic constipation, OA referred to GI clinic for worsening constipation. + chronic constipation x 1 year, she can go up to 3 days w/o a BM. + straining, +hard stool, + feeling of incomplete evacuation at times. no hematochezia or melena. She did try stool softeners which did not help. Never tried miralax. Patient denies No nausea, vomiting, dysphagia, abdominal pain, no heart burn or acid reflux. No diarrhea, no hematochezia or melena. No weight loss, no prior abdominal surgeries. No family hx colon cancer. + prior colonoscopies 9 years ago. Review of Systems Constitutional: [...] Family history of Hypertension (V17.49) Social History ? Former smoker (V15.82) (Z87.891) Current Meds 1. Ibuprofen 800 MG Oral Tablet; TAKE 1 TABLET 3 TIMES DAILY WITH FOOD NEEDED; Therapy: [id number] to (Evaluate:09Nov2017) Requested for: [id number]; Last Rx:[id number] Ordered Rx By: Codi Winters; Dispense: 20 Days ; #:60 Tablet; Refill: 0;For: Left hip pain, Low back pain potentially associated with radiculopathy, Right hip pain; CRISTOPHER = N; Verified Transmission to [facility]; Last Updated By: Vicky Boogie; 10/20/2017 11:06:37 AM Allergies 1. No Known Drug Allergies Recorded By: Laurence Fernandez; 10/06/2012 2:40:15 PM Vitals Recorded: [id number] 02:05PM Heart Rate 85 Systolic 134 Diastolic [...] x 3 Results/Data CBC W Manual Differential [id number] 01:55PM Codi Winters Test Name Result Flag [...] MANUAL Compr Metabolic Prof ( CMP ) [id number] 01:55PM Codi Winters Test Name Result Flag [...] TAKE 1 TABLET DAILY NEEDED Rx By: Vilma Pulliam; Dispense: 30 Days ; #:30 Tablet; Refill: 3;For: Constipation; CRISTOPHER = N; Record 2. Start: Polyethylene Glycol 3350 Oral Powder (MiraLax); MIX 1 CAPFUL (17GM) IN 8 OUNCES OF WATER, JUICE, OR TEA AND DRINK DAILY Rx By: Vilma Pulliam; Dispense: 28 Days ; #:4 X 119 GM Bottle; Refill: 6;For: Constipation; CRISTOPHER = N; Record Discussion/Summary - [...] perforation of the bowel which may require hospitalization and surgery, bleeding, infection, aspiration ), benefits, and alternatives of the procedure(s) and they are agreeable to proceed as planned. Signatures Electronically signed by : Vilma Pulliam MD; Oct 26 2017 2:23PM ADVERTISING REP (Author) Signed by: VILMA PULLIAM 11/01/2017 09:35 AM documented in this encounter Plan of Treatment Upcoming Encounters Date Type Department Care Team (Late st Contact Info) Description 11/06/2024 12:30 PM ADVERTISING REP Appointment [facility] [place] [address] Danny Steele MD [address] [place] [phone] 11/06/2024 1:00 PM ADVERTISING REP Appointment [facility] [place], [place] [address] Danny Steele MD [address] [place] [address] [phone] documented as of this encounter Visit Diagnoses Not on filedocumented in this encounter Care Teams Family Therapist Relationship Specialty Start Date End Date Zane Foy MD PCP - General 08/02/16 02/02/18 Codi Winters APNP Family & Internal Medicine [place] [address] [place], [place] [id number] PCP - General ADVANCED PRACTICE JAVA PROJECT MANAGER 02/03/18 11/23/22 Staci Sanchez MD Family & Internal Medicine [place] [address] [place], [place] [phone] Nadira Film Producer INTERVENTIONAL CARDIOLOGY 02/16/18 documented as of this encounter
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
--- OUTSIDE RECORDS SUMMARY | 2024-08-26 07:09 | XMS_ITS | Encounter Summary ---
Author Organization [facility] Address [address] [place] [address]. [place] [address] [place] [address] Care Team Providers Care Agronomy Specialist Name Role Phone Zane Foy MD Primary Care Provider Donovan junior Encounter Details Date Type Department Care Team (Latest Contact Info) Description 10/20/2017 8:05 PM LINE THERAPIST - 10/20/2017 11:59 PM LINE THERAPIST Hospital Encounter [facility] [place], [place] [address] Codi Winters, JT [facility] [place] [address] Discharge Disposition: Home or Self Care (Routine [...] st Contact Info) Description 11/06/2024 12:30 PM LINE THERAPIST Appointment [facility] [place], [place] [address] Danny Steele MD [facility] [address] [phone] 11/06/2024 1:00 PM LINE THERAPIST Appointment [facility] [address] Danny Steele MD [address] [phone] documented as of this encounter Procedures Procedure Name Priority Date/Time Associated Diagnosis Comments TSH W/REFLEX Routine 10/20/2017 1:55 PM LINE THERAPIST Constipation Pure hypercholesterolemi a Other chest pain Shortness of breath COMPREHENSIVE METABOLIC PANEL Routine 10/20/2017 1:55 PM LINE THERAPIST Constipation Pure hypercholesterolemi a Other chest pain Shortness of breath LIPID PANEL Routine 10/20/2017 1:55 PM LINE THERAPIST Constipation Pure hypercholesterolemi a Other chest pain Shortness of breath CBC, MANUAL DIFF Routine 10/20/2017 1:55 PM LINE THERAPIST Encounter for general adult medical examination without abnormal findings Other chest pain Shortness of breath URIC ACID BLOOD Routine 10/20/2017 1:55 PM LINE THERAPIST Constipation Pure hypercholesterolemi a Other chest pain Shortness of breath documented in this encounter Results * URIC ACID BLOOD (10/20/2017 1:55 PM LINE THERAPIST) URIC ACID 4.8 2.6 - 6.0 MG/DL 10/20/2017 9:45 PM LINE THERAPIST [facility] 10/20/2017 1:55 PM LINE THERAPIST [facility] Final Resul t [facility] [address] [place] [address], [place] [phone] * TSH W/REFLEX (10/20/2017 1:55 PM LINE THERAPIST) TSH 0.698 0.358 - 3.74 uIU/ML 10/20/2017 9:45 PM LINE THERAPIST [facility] Comment: HIGH DOSES OF BIOTIN MAY INTERFERE WITH THIS TEST RESULT. CORRELATION TO CLINICAL HISTORY AND PRESENTATION RECOMMENDED. FREE T4 NOT INDICATED 10/20/2017 1:55 PM LINE THERAPIST us Codi Burnett Vianey [facility] Final Resul t [facility] [address] [place] [address], * (ABNORMAL) LIPID PANEL (10/20/2017 1:55 PM LINE THERAPIST) CHOLESTEROL 200(H) <200 MG/DL 10/20/2017 9:45 PM [facility] TRIGLYCERIDES 50 <150 MG/DL 10/20/2017 9:45 PM [facility] HDL 70 >40.0 MG/DL 10/20/2017 9:45 PM LINE THERAPIST [facility] LDL (CALCULATED) 120.0(H) <100 MG/L 10/20/19 18 9:45 PM [facility] NON HDL CHOLESTEROL 130(H) <130 MG/DL 10/20/2017 9:45 PM [facility] CHOL/HDL RATIO 2.9 0.0 - 4.5 10/20/2017 9:45 PM [facility] VLDL CALCULATION 10 5 - 55 MG/DL 10/20/2017 9:45 PM [facility] LIPID INTERPRETATION 10/20/2017 9:45 PM [facility] Comment: NIH CONCENSUS REPORT RECOMMENDATIONS: [...] ?LDL ? >=160 ?>=130 10/20/2017 1:55 PM LINE THERAPIST us Codi Winters APNP LABORATORY Final Resul t [facility] [address] [place] [address], * (ABNORMAL) COMPREHENSIVE METABOLIC PANEL (10/20/2017 1:55 PM LINE THERAPIST) GLUCOSE 82 70 - 99 MG/DL 10/20/2017 9:45 PM LINE THERAPIST [facility] BUN 13 7 - 18 MG/DL 10/20/2017 9:45 PM [facility] CREATININE S/P/B 0.64 0.55 - 1.02 MG/DL 10/20/2017 9:45 PM [facility] SODIUM S/P/B 144 136 - 145 MMOL/L 10/20/2017 9:45 PM [facility] POTASSIUM S/P/B 4.4 3.5 - 5.1 MMOL/L 10/20/2017 9:45 PM [facility] CHLORIDE S/P/B 109(H) 100 - 108 MMOL/L 10/20/2017 9:45 PM [facility] CO2 27.9 21 - 32 MMOL/L 10/20/2017 9:45 PM [facility] CALCIUM S/P/B 9.2 8.5 - 10.1 MG/DL 10/20/2017 9:45 PM [facility] BILIRUBIN TOTAL S/P/B 0.5 0.2 - 1.2 MG/DL 10/20/2017 9:45 PM [facility] TOTAL PROTEIN S/P/B 7.9 6.4 - 8.2 G/DL 10/20/2017 9:45 PM [facility] ALBUMIN S/P/B 3.8 3.4 - 5.0 G/DL 10/20/2017 9:45 PM [facility] AST 15 15 - 37 U/L 10/20/2017 9:45 PM [facility] ALT 21 14 - 55 U/L 10/20/2017 9:45 PM [facility] ALKALINE PHOSPHATASE S/P/B 89 50 - 136 U/L 10/20/2017 9:45 PM [facility] ANION GAP 11.5 8 - 20 MMOL/L 10/20/2017 9:45 PM LINE THERAPIST [facility] BUN CREATININE RATIO 20.3 6 - 26 10/20/2017 9:45 PM LINE THERAPIST [facility] A/G RATIO 0.9(L) 1.0 - 2.0 RATIO 10/20/2017 9:45 PM [facility] EGFR NON-AFR. AMER. >60 >60 ML/MIN/1.7 3 M2 10/20/2017 9:45 PM [facility] EGFR AFR. AMER. >60 >60 ML/MIN/1.7 3 M2 10/20/2017 9:45 PM [facility] Comment: NOTE: eGFR is not calculated for patients <18 years of age. This is an estimated GFR (CKD EPI) and should not be used for calculating drug doses. 10/20/2017 1:55 PM LINE THERAPIST [facility] Final Resul t [facility] [address] [place] [address], * (ABNORMAL) CBC, MANUAL DIFF (10/20/2017 1:55 PM LINE THERAPIST) WBC 4.3(L) 4.8 - 10.8 x10'3/uL 10/20/2017 9:50 PM LINE THERAPIST [facility] RBC 4.81 4.20 - 5.40 x10'6/uL 10/20/2017 9:50 PM LINE THERAPIST [facility] HGB 13.1 12.0 - 16.0 G/DL 10/20/2017 9:50 PM [facility] HCT 42.9 38.0 - 48.0 % 10/20/2017 9:50 PM [facility] MCV 89.2 81.0 - 99.0 FL 10/20/2017 9:50 PM LINE THERAPIST [facility] MCH 27.2 27.0 - 31.0 PG 10/20/2017 9:50 PM LINE THERAPIST [facility] MCHC 30.5(L) 32.0 - 36.0 G/DL 10/20/2017 9:50 PM LINE THERAPIST [facility] RDW 14.3 11.5 - 14.5 % 10/20/2017 9:50 PM LINE THERAPIST [facility] PLT 210 130 - 400 x10'3/uL 10/20/2017 9:50 PM LINE THERAPIST [facility] MPV 11.1 9.3 - 12.2 FL 10/20/2017 9:50 PM LINE THERAPIST [facility] EOSINOPHILS 5(H) 1.0 - 3.0 % 10/20/2017 9:59 PM LINE THERAPIST [facility] SEG NEUTROPHILS 46 43.0 - 65.0 % 10/20/2017 9:59 PM LINE THERAPIST [facility] LYMPHOCYTES 44 20.0 - 46.0 % 10/20/2017 9:59 PM LINE THERAPIST [facility] MONOCYTES 5 5.0 - 12.0 % 10/20/2017 9:59 PM LINE THERAPIST [facility] DIFFERENTIAL TYPE MANUAL 018 9:59 PM [facility] 10/20/2017 1:55 PM LINE THERAPIST us C[facility] Final Resul t [facility] [address] [place] [address], [place] [phone] documented in this encounter Visit Diagnoses Diagnosis Encounter for general adult medical examination without abnormal findings Unspecified general medical examination Other chest pain Shortness of breath Constipation Unspecified constipation Pure hypercholesterolemia documented in this encounter Care Teams Agronomy Specialist Relationship Specialty Start Date End Date Zane Foy MD PCP - General 08/02/16 02/02/18 documented as of this encounter
--- OUTSIDE RECORDS SUMMARY | 2024-08-26 07:09 | XMS_ITS | Encounter Summary ---
Author Organization [facility] Address [address] [place] [address]. [place], [place] [address] [place] [address] Care Team Providers Care Rehab Physician Name Role Phone Zane Foy MD Primary Care Provider Codi Higgins Primary Care Provider [phone] Staci Sanchez MD Unavailable [phone] Encounter Details Date Type Department Care Team (Latest Contact Info) Description 08/10/2016 Abstract [facility] Medical [facility] Social History Tobacco Use Types Packs/Day Years Used Date Smoking Tobacco: Never Assessed Comments Unknown Sex and Gender Information Value Date Recorded Sex Assigned at Not on file Legal Sex Female 8:22 PM CDT Gender Identity Not on file Sexual Orientation Straight 06/27/2024 8: 00 AM CDT documented as of this encounter Progress Notes * GARY Martin - 08/10/2016 8:24 AM CST Message Recorded as Task Date: 08/09/2016 10:20 AM, Created By: Laurence Adam Task Name: Medical Complaint Callback Assigned To: [facility] Nurse Team Regarding Patient: Saray Whitten, Status: In Progress Comment: Laurence Adam - 09 Aug 2016 10:20 AM TASK CREATED Saray's cholesterol level was slightly elevated at 213 for her total cholesterol which should be under 200. Continue current managment with low fat, low cholesterol diet and exercise. Marianne Dietz - 09 Aug 2016 4:04 PM TASK IN PROGRESS Marianne Dietz - 09 Aug 2016 4:09 PM TASK EDITED [id number] Message: Pt updated, no questions at this time. Signatures Electronically signed by : Jaja Ferguson RKasey; Aug 10 2016 8:25AM EMERGENCY COMMUNICATIONS OPERATOR (Author) documented in this encounter Plan of Treatment Upcoming Encounters Date Type Department Care Team (Late st Contact Info) Description 11/06/2024 12:30 PM EMERGENCY COMMUNICATIONS OPERATOR Appointment [facility] [address] Danny Steele MD [address] [place] [phone] 11/06/2024 1:00 PM EMERGENCY COMMUNICATIONS OPERATOR Appointment [facility] [place] [address] Danny Steele MD [address] [place] [phone] documented as of this encounter Visit Diagnoses Not on filedocumented in this encounter Care Teams Rehab Physician Relationship Specialty Start Date End Date Zane Foy MD PCP - General 08/02/16 02/02/18 Codi Winters APNP [facility] [address] [address] PCP - General ADVANCED PRACTICE PATIENT CARE TECHNICIAN INSTRUCTOR 02/03/18 11/23/22 Staci Sanchez MD [facility] [address] [phone] [place] Car Cleaning Supervisor INTERVENTIONAL CARDIOLOGY 02/16/18 documented as of this encounter
--- OUTSIDE RECORDS SUMMARY | 2024-08-26 07:09 | XMS_ITS | Encounter Summary ---
Author Organization [facility] Address [address] [place] [address]. [place], [place] [address] [place] [address] Care Team Providers Care Fitness Center Attendant Name Role Phone Zane Foy MD Primary Care Provider Codi Higgins Primary Care Provider [phone] Staci Sanchez MD Unavailable [phone] Encounter Details Date Type Department Care Team (Latest Contact Info) Description 11/22/2016 Abstract [facility] Medical [facility] Social History Tobacco Use Types Packs/Day Years Used Date Smoking Tobacco: Never Assessed Comments Unknown Sex and Gender Information Value Date Recorded Sex Assigned at Not on file Legal Sex Female 8:22 PM CDT Gender Identity Not on file Sexual Orientation Straight 06/27/2024 8: 00 AM CDT documented as of this encounter Progress Notes * Generic Conversion MD Raquel - 11/22/2016 12:57 PM CDT Message Recorded as Task Date: 11/22/2016 09:15 AM, Created By: Gayla Kevin Task Name: Medical Complaint Callback Assigned To: [facility] Team Law Regarding Patient: Saray Whitten, Status: In Progress Comment: Gayla Kevin - 22 Nov 2016 9:15 AM TASK CREATED Pt requesting an order for chest xray- she was coughing since last Tuesday she believes she had the flu - she is still coughing sputum light yellowush green all other sx resolved but she is now starting to Wheeze- please advise CB# [phone] Up until 1 pm--- [phone] Pharm- [facility] Allergies ROMANDA Zane Foy - 22 Nov 2016 10:00 AM TASK REASSIGNED: Previously Assigned To Zane Foy CXR If she feels that she is slowly getting better each day or two, we can presume that trend will continue. If she thinks things are worsening, we usually error on the side of starting an antibiotic fora possible secondary bacteria infection. Shila Holt - 22 Nov 2016 12:00 PM TASK REPLIED TO: Previously Assigned To [facility] Team Law Left message for patient to return office call. Shila Garcia - 22 Nov 2016 12:00 PM TASK IN PROGRESS Message: pt notified. She did say she felt like it was getting worse and would like the antibiotic.rx sent Signatures Electronically signed by : Nydia Simmons, ; Nov 22 2016 12:58PM FINAL INSPECTOR (Author) documented in this encounter Plan of Treatment Upcoming Encounters Date Type Department Care Team (Late st Contact Info) Description 11/06/2024 12:30 PM FINAL INSPECTOR Appointment [facility] [address] Danny Steele MD [address] [place] [phone] 11/06/2024 1:00 PM FINAL INSPECTOR Appointment [facility] [place], [place] [address] Danny Steele MD [address] [place] [address] [phone] documented as of this encounter Visit Diagnoses Not on filedocumented in this encounter Care Teams Fitness Center Attendant Relationship Specialty Start Date End Date Zane Foy MD PCP - General 08/02/16 02/02/18 Codi Winters APNP Family [facility] Internal Medicine [address] [address] PCP - General ADVANCED PRACTICE JUVENILE JUSTICE OFFICER 02/03/18 11/23/22 Staci Sanchez MD [facility] [place] [address] [employer] Learning Consultant INTERVENTIONAL CARDIOLOGY 02/16/18 documented as of this encounter
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
--- OUTSIDE RECORDS SUMMARY | 2024-08-26 07:09 | XMS_ITS | Encounter Summary ---
Author Organization [facility] Address [address] [place] [address]. [place], [place] [address] [place] [address] Care Team Providers Care Hand Nailer Name Role Phone Zane Foy MD Primary Care Provider Zane Ruiz MD Primary Care Provider Codi Higgins Primary Care Provider Staci Sanchez MD Unavailable [phone] Encounter Details Date Type Department Care Team (Latest Contact Info) Description 06/18/2016 Abstract [facility] Medical Group Social History Tobacco Use [...] st Contact Info) Description 11/06/2024 12:30 PM RN NICU Appointment [facility] [address] Danny Steele MD [address] [place] [phone] 11/06/2024 1:00 PM RN NICU Appointment [facility] [place] [address] Danny Steele MD [address] [place] [address] [phone] documented as of this encounter Visit Diagnoses Not on filedocumented in this encounter Care Teams Hand Nailer Relationship Specialty Start Date End Date Zane Foy MD PCP - General 08/02/16 02/02/18 Zane Foy MD PCP - General 05/31/16 08/01/16 Codi Winters APNP [facility] [address] [address] PCP - General ADVANCED PRACTICE CLOUD OPERATIONS ENGINEER 02/03/18 11/23/22 Staci Sanchez MD [facility] [address] [address] Nadira Flight Teacher INTERVENTIONAL CARDIOLOGY 02/16/18 documented as of this encounter
--- OUTSIDE RECORDS SUMMARY | 2024-08-26 07:09 | XMS_ITS | Encounter Summary ---
Author Organization [facility] Address [address] [place] [address]. [place] [address] [place] [address] Care Team Providers Care Director Of Regional Sales Name Role Phone Zane Foy MD Primary Care Provider Donovan junior Reason for Visit * Reason Onset Date Comments Consult 10/27/2017 Encounter Details Date Type Department Care Team (Late st Contact Info) Description 10/27/2017 Telephone [facility] [place] [facility] [address] [place], [place] [phone] Bijan Zarate MD [facility]. [facility] [address] [place], [place] [phone] Consult Social History Tobacco Use Types Packs/Day Years Used Date Smoking Tobacco: Never Assessed Comments Unknown Sex and Gender Information Value Date Recorded Sex Assigned at Not on file Legal Sex Female 8:22 PM CDT Gender Identity Not on file Sexual Orientation Straight 06/27/2024 8: 00 AM CDT documented as of this encounter Progress Notes * Misa Zhang - 10/27/2017 8:56 AM CST LEFT MESSAGE ON VOICEMAIL FOR PATIENT TO SCHEDULE CONSULT ORDERED BY JACQUELYN IBRAHIM NP FILLER documented in this encounter Plan of Treatment Upcoming Encounters Date Type Department Care Team (Late st Contact Info) Description 11/06/2024 12:30 PM BULB FILLER Appointment [facility] [place], [place] [phone] Danny Steele MD [facility] [address] [phone] 11/06/2024 1:00 PM BULB FILLER Appointment [facility] [place] [address] Danny Steele MD [facility] [address] [phone] documented as of this encounter Visit Diagnoses Not on filedocumented in this encounter Care Teams Director Of Regional Sales Relationship Specialty Start Date End Date Zane Foy MD PCP - General 08/02/16 02/02/18 documented as of this encounter
--- OUTSIDE RECORDS SUMMARY | 2024-08-26 07:10 | XMS_ITS | Encounter Summary ---
Author Organization [facility] Address [address] [place] [address]. [place] [address] [place] [address] Care Team Providers Care Manager Switch Name Role Phone Zane Foy MD Primary Care Provider Zane Ruiz MD Primary Care Provider Zane Ruiz MD Primary Care Provider Donovan junior Encounter Details Date Type Department Care Team (Late st Contact Info) Description 01/19/2011 Abstract [facility] [address] Dora Pathak MD [address] [place] [id number] Social History Tobacco Use Types Packs/Day Years [...] st Contact Info) Description 11/06/2024 12:30 PM ATTORNEY Appointment [facility] [place] [address] Danny Steele MD [address] [place] [id number] 11/06/2024 1:00 PM ATTORNEY Appointment [facility] [place] [address] Danny Steele MD [facility] [address] [address] documented as of this encounter Visit Diagnoses Diagnosis Pain in joint, shoulder region documented in this encounter Care Teams Manager Switch Relationship Specialty Start Date End Date Zane Foy MD PCP - General 08/02/16 02/02/18 Zane Foy MD PCP - General 05/31/16 08/01/16 Zane Foy MD PCP - General 11/08/15 05/30/16 documented as of this encounter
--- OUTSIDE RECORDS SUMMARY | 2024-08-26 07:10 | XMS_ITS | Encounter Summary ---
Author Organization [facility] Address [address] [place] [address]. [place], [place] [address] [place] [address] Care Team Providers Care Materials Planning Analyst Name Role Phone Zane Foy MD Primary Care Provider Zane Ruiz MD Primary Care Provider Zane Ruiz MD Primary Care Provider Codi Higgins Primary Care Provider [phone] Staci Sanchez MD Unavailable [phone] Encounter Details Date Type Department Care Team (Late st Contact Info) Description 01/21/2015 Abstract [facility] Family & Internal Medicine [address] [phone] Zane Foy MD Social History [...] Sign Reading Time Taken Comments Blood Pressure 152/93 01/21/2015 3:26 PM CDT Pulse 77 01/21/2015 3:26 PM CDT Temperature - - Respiratory Rate - - Oxygen Saturation - - Inhaled Oxygen Concentration - - Weight 83.2 kg (183 lb 8 oz) 01/21/2015 3:26 PM CDT Height 167.6 cm (5' 6 ) 01/21/2015 3:26 PM CDT Body Mass Index 29.62 01/21/2015 3:26 PM CDT documented in this encounter Progress Notes * Zane Foy MD - 01/21/2015 3:30 PM CDT Reason For Visit Reason For Visit: Acute Visit Chief Complaint Patient states she is here for physical but c/o of stress and anxiety after mothers passing last month and beginning of menopause History of Present Illness Here for followup having not been in the office for some time. She needs to get some labs done. Shehas had sad and anxious moods as she deals with the recent passing of her mother. She is also having trouble sleeping. Review of Systems See HPI for pertinent positives. Constitutional: feeling tired. Cardiovascular: no chest pain and no palpitations. Respiratory: no shortness of breath and no cough. Gastrointestinal: constipation, but no abdominal pain, no vomiting and no diarrhea. Psychiatric: anxiety and depression, but no ideation. Active Problems 1. Blood tests for routine general physical examination (V72.62) (Z00.00) 2. Cough (786.2) (R05) 3. Fatigue (780.79) (R53.83) Past Medical History 1. History of Sarcoidosis (135) (D86.9) Surgical History 1. Denied: History of Surgery Family History Family History 1. Family history of Alzheimer Disease 2. Family history of Chronic Obstructive Pulmonary Disease 3. Family history of Heart Disease (V17.49) 4. Family history of Hypertension (V17.49) Social History ?? Former smoker (V15.82) (Z87.891) Allergies 1. No Known Drug Allergies Recorded By: Laurence Fernandez; 10/06/2012 2:40:15 PM Vitals Recorded: [id number] 03:26PM Heart Rate 77 Respiration 16 Systolic 152 Diastolic 93 O2 Saturation 100 Height 5 ft 6 in Weight 183 lb 8 oz BMI Calculated 29.62 BSA Calculated 1.93 Physical Exam Constitutional General appearance: No acute distress, well appearing and well nourished. Pulmonary Respiratory effort: No increased work of [...] and nails: Normal without clubbing or cyanosis. Psychiatric Orientation to person, place, and time: Normal. Mood and affect: Normal. Results/Data LC-CBC With Differential/Platelet [id number] 12:00AM Zane Foy Test Name Result Flag Reference WBC 4.8 x10E3/uL 3.4-10.8 RBC 4.78 x10E6/uL 3.77-5.28 Hemoglobin 13.1 g/dL 11.1-15.9 Hematocrit 40.6 % 34.0-46.6 MCV 85 fL 79-97 MCH 27.4 pg 26.6-33.0 MCHC 32.3 g/dL 31.5-35.7 RDW 14.2 % 12.3-15.4 Platelets 220 x10E3/uL 150-379 Neutrophils 49 % Lymphs 40 % Monocytes 8 % Eos 3 % Basos 0 % Immature Cells Neutrophils (Absolute) 2.4 x10E3/uL 1.4-7.0 Lymphs (Absolute) 1.9 x10E3/uL 0.7-3.1 Monocytes(Absolute) 0.4 x10E3/uL 0.1-0.9 Eos (Absolute) 0.1 x10E3/uL 0.0-0.4 Baso (Absolute) 0.0 x10E3/uL 0.0-0.2 Immature Granulocytes 0 % Immature Grans (Abs) 0.0 x10E3/uL 0.0-0.1 NRBC Hematology Comments: LC-Comp. Metabolic Panel ( CMP ) [id number] 12:00AM Zane Foy Test Name Result Flag Reference Glucose, Serum 88 mg/dL 65-99 BUN 15 mg/dL 6-24 Creatinine, Serum 0.72 mg/dL 0.57-1.00 eGFR If NonAfricn Am 95 mL/min/1.73 >59 eGFR If Africn Am 109 mL/min/1.73 >59 BUN/Creatinine Ratio 21 9-23 Sodium, Serum 142 mmol/L 134-144 Potassium, Serum 4.2 mmol/L 3.5-5.2 Chloride, Serum 100 mmol/L 97-108 Carbon Dioxide, Total 26 mmol/L 18-29 Calcium, Serum 9.9 mg/dL 8.7-10.2 Protein, Total, Serum 7.5 g/dL 6.0-8.5 Albumin, Serum 4.6 g/dL 3.5-5.5 Globulin, Total 2.9 g/dL 1.5-4.5 A/G Ratio 1.6 1.1-2.5 Bilirubin, Total 0.4 mg/dL 0.0-1.2 Alkaline Phosphatase, S 59 IU/L 39-117 AST (SGOT) 24 IU/L 0-40 ALT (SGPT) 33 IU/L H 0-32 LC-Lipid Panel [id number] 21Jan2015 12:00AM Zane Foy Test Name Result Flag Reference Cholesterol, Total 219 mg/dL H 100-199 Triglycerides 62 mg/dL 0-149 HDL Cholesterol 78 mg/dL >39 According to ATP-III Guidelines, HDL-C >59 mg/dL is considered a negative risk factor for CHD. VLDL Cholesterol Magan 12 mg/dL 5-40 LDL Cholesterol Calc 129 mg/dL H 0-99 Comment: LC-TSH [id number] 21Jan2015 12:00AM Zane Foy Test Name Result Flag Reference TSH 0.765 uIU/mL 0.450-4.500 Assessment 1. Constipation (564.00) (K59.00) 2. Insomnia (780.52) (G47.00) 3. Fatigue (780.79) (R53.83) 4. Anxiety (300.00) (F41.9) Plan Anxiety 1. Sertraline HCl - 50 MG Oral Tablet; TAKE 1 TABLET BY MOUTH DAILY Rx By: Zane Foy; Dispense: 30 Days ; #:30 Tablet; Refill: 2; For: Anxiety; CRISTOPHER = N; Print Rx Formulary Override Reason: No Formulary Equivalent Exists Anxiety, Constipation, Health Maintenance, Fatigue, Insomnia 2. LC-CBC With Differential/Platelet [id number]; Status:Resulted - Requires Verification; Done: 21Jan2015 12:00AM Performed:[facility]; Due:20Feb2015;Ordered; For:Anxiety, Constipation, Health Maintenance, Fatigue, Insomnia; Ordered By:Zane Foy; 3. LC-Comp. Metabolic Panel ( CMP ) [id number]; Status:Resulted - Requires Verification; Done: 21Jan2015 12:00AM Performed:[facility]; Due:20Feb2015;Ordered; For:Anxiety, Constipation, Health Maintenance, Fatigue, Insomnia; Ordered By:Zane Foy; 4. LC-Lipid Panel [id number]; Status:Resulted - Requires Verification; Done: 21Jan2015 12:00AM Performed:[facility]; Due:20Feb2015;Ordered; For:Anxiety, Constipation, Health Maintenance, Fatigue, Insomnia; Ordered By:Zane Foy; 5. LC-TSH [id number]; Status:Resulted - Requires Verification; Done: 21Jan2015 12:00AM Performed:[facility]; Due:20Feb2015;Ordered; For:Anxiety, Constipation, Health Maintenance, Fatigue, Insomnia; Ordered By:Zane Foy; Anxiety, Insomnia 6. LORazepam 0.5 MG Oral Tablet; take one half to two tablets up to three times a day Rx By: Zane Foy; Dispense: 0 Days ; #:30 Tablet; Refill: 0; For: Anxiety, Insomnia; CRISTOPHER = N; Print Rx Formulary Override Reason: No Formulary Equivalent Exists Given her busy schedule, she would rather call us in 2-3 weeks with an update on her symptoms and response to her new medicine. Signatures Electronically signed by : Zane Foy M.D.; Jan 23 2015 8:18PM TAPE CUTTING MACHINE OPERATOR (Author) * Generic Conversion MD Raquel - 01/21/2015 3:30 PM CDT Message patient notified-sjs Verified Results LC-CBC With Differential/Platelet [id number] 21Jan2015 12:00AM Zane Foy Test Name Result Flag Reference WBC 4.8 x10E3/uL 3.4-10.8 RBC 4.78 x10E6/uL 3.77-5.28 Hemoglobin 13.1 g/dL 11.1-15.9 Hematocrit 40.6 % 34.0-46.6 MCV 85 fL 79-97 MCH 27.4 pg 26.6-33.0 MCHC 32.3 g/dL 31.5-35.7 RDW 14.2 % 12.3-15.4 Platelets 220 x10E3/uL 150-379 Neutrophils 49 % Lymphs 40 % Monocytes 8 % Eos 3 % Basos 0 % Immature Cells Neutrophils (Absolute) 2.4 x10E3/uL 1.4-7.0 Lymphs (Absolute) 1.9 x10E3/uL 0.7-3.1 Monocytes(Absolute) 0.4 x10E3/uL 0.1-0.9 Eos (Absolute) 0.1 x10E3/uL 0.0-0.4 Baso (Absolute) 0.0 x10E3/uL 0.0-0.2 Immature Granulocytes 0 % Immature Grans (Abs) 0.0 x10E3/uL 0.0-0.1 NRBC Hematology Comments: LC-Comp. Metabolic Panel ( CMP ) [id number] 21Jan2015 12:00AM Zane Foy Test Name Result Flag Reference Glucose, Serum 88 mg/dL 65-99 BUN 15 mg/dL 6-24 Creatinine, Serum 0.72 mg/dL 0.57-1.00 eGFR If NonAfricn Am 95 mL/min/1.73 >59 eGFR If Africn Am 109 mL/min/1.73 >59 BUN/Creatinine Ratio 21 9-23 Sodium, Serum 142 mmol/L 134-144 Potassium, Serum 4.2 mmol/L 3.5-5.2 Chloride, Serum 100 mmol/L 97-108 Carbon Dioxide, Total 26 mmol/L 18-29 Calcium, Serum 9.9 mg/dL 8.7-10.2 Protein, Total, Serum 7.5 g/dL 6.0-8.5 Albumin, Serum 4.6 g/dL 3.5-5.5 Globulin, Total 2.9 g/dL 1.5-4.5 A/G Ratio 1.6 1.1-2.5 Bilirubin, Total 0.4 mg/dL 0.0-1.2 Alkaline Phosphatase, S 59 IU/L 39-117 AST (SGOT) 24 IU/L 0-40 ALT (SGPT) 33 IU/L H 0-32 -Lipid Panel [id number] 12:00AM Zane Foy Test Name Result Flag Reference Cholesterol, Total 219 mg/dL H 100-199 Triglycerides 62 mg/dL 0-149 HDL Cholesterol 78 mg/dL >39 According to ATP-III Guidelines, HDL-C >59 mg/dL is considered a negative risk factor for CHD. VLDL Cholesterol Magan 12 mg/dL 5-40 LDL Cholesterol Calc 129 mg/dL H 0-99 Comment: LC-TSH [id number] 21Jan2015 12:00AM Zane Foy Test Name Result Flag Reference TSH 0.765 uIU/mL 0.450-4.500 Plan Anxiety ?? HCl - 50 MG Oral Tablet; TAKE 1 TABLET BY MOUTH DAILY Anxiety, Constipation, Health Maintenance, Fatigue, Insomnia ?? LC-CBC With Differential/Platelet [id number]; Status:Complete; Done: 21Jan2015 12:00AM ?? LC-Comp. Metabolic Panel ( CMP ) [id number]; Status:Complete; Done: 21Jan2015 12:00AM ?? LC-Lipid Panel [id number]; Status:Complete; Done: 21Jan2015 12:00AM ?? LC-TSH [id number]; Status:Complete; Done: 21Jan2015 12:00AM Anxiety, Insomnia ?? 0.5 MG Oral Tablet; take one half to two tablets up to three times a day Discussion/Summary labs all good. Continue current medicines and let us know how she is doing in a couple more weeks. Signatures Electronically signed by : Marianne Dietz, ; Jan 24 2015 12:08PM TAPE CUTTING MACHINE OPERATOR (Author) documented in this encounter Plan of Treatment Upcoming Encounters Date Type Department Care Team (Late st Contact Info) Description 11/06/2024 12:30 PM TAPE CUTTING MACHINE OPERATOR Appointment [facility] [place], [place] [address] Danny Steele MD [address] [place] [address] 11/06/2024 1:00 PM TAPE CUTTING MACHINE OPERATOR Appointment [facility] [place], [place] [address] Danny Steele MD [address] [address] documented as of this encounter Procedures Procedure Name Priority Date/Time Associated Diagnosis Comments COMPREHENSIVE METABOLIC PANEL Routine 01/21/2015 12:00 AM CDT LIPID PANEL Routine 01/21/2015 12:00 AM CDT CBC W/DIFF AUTOMATED Routine 01/21/2015 12:00 AM CDT THYROID STIM HORMONE TSH Routine 01/21/2015 12:00 AM CDT documented in this encounter Results * CBC W/DIFF AUTOMATED (01/21/2015 12:00 AM CDT) WBC 4.8 3.4 - 10.8 x10E3/uL [facility] TO [facility] CONVERSION RBC 4.78 3.77 - 5.28 x10E6/uL [facility] TO EPIC CONVERSION HEMOGLOBIN MIXED VENOUS 13.1 11.1 - 15.9 g/dL [facility] TO [facility] CONVERSION HCT 40.6 34.0 - 46.6 % [facility] TO [facility] CONVERSION MCV 85 79 - 97 fL [facility] TO [facility] CONVERSION MCH 27.4 26.6 - 33.0 pg [facility] TO [facility]IC CONVERSION MCHC 32.3 31.5 - 35.7 g/dL [facility] TO [facility] CONVERSION RDW 14.2 12.3 - 15.4 % [facility] TO [facility] CONVERSION PLT 220 150 - 379 x10E3/uL [facility] TO [facility] CONVERSION SEG NEUTROPHILS 49 % [facility] ROUP TO EPIC CONVERSION LYMPHOCYTES 40 % [facility] TO [facility]IC CONVERSION MONOCYTES 8 % [facility] T O EPIC CONVERSION EOSINOPHILS 3 % [facility] TO EPIC CONVERSION BASOPHILS % 0 % [facility] TO [facility]IC CONVERSION IMMATURE CELLS [facility] OUP TO EPIC CONVERSION ABS. NEUTROPHILS 2.4 1.4 - 7.0 x10E3/uL [facility] TO EPIC CONVERSION ABS. LYMPHOCYTES 1.9 0.7 - 3.1 x10E3/uL [facility] TO EPIC CONVERSION ABS. MONOCYTES 0.4 0.1 - 0.9 x10E3/uL [facility] TO EPIC CONVERSION ABS. EOSINOPHILS 0.1 0.0 - 0.4 x10E3/uL [facility] TO EPIC CONVERSION ABS. BASOPHILS 0.0 0.0 - 0.2 x10E3/uL [facility] TO EPIC CONVERSION IMMATURE CELLS 0 % [facility] OUP TO EPIC CONVERSION ABS. IMMATURE GRANULOCYTES 0.0 0.0 - 0.1 x10E3/uL [facility] TO EPIC CONVERSION NRBC [facility] T O EPIC CONVERSION CBC COMMENT [facility] TO [facility] CONVERSION 01/21/2015 01/21/2015 Narrative [facility] CONVERSION - 01/22/2015 7:49 AM CDT Result Communication: No patient communication needed at this time us Zane Foy MD LABORATORY Final Result [facility] TO [facility] CONVERSION * THYROID STIM HORMONE, TSH (01/21/2015 12:00 AM CDT) TSH 0.765 0.450 - 4.500 uIU/mL [facility] TO [facility] CONVERSION 01/21/2015 01/21/2015 Narrative [facility] CONVERSION - 01/22/2015 7:49 AM CDT Result Communication: Call patient with results us Zane Foy MD LABORATORY Final Result [facility] TO [facility] CONVERSION * (ABNORMAL) COMPREHENSIVE METABOLIC PANEL (01/21/2015 12:00 AM CDT) GLUCOSE 88 65 - 99 mg/dL [facility] TO [facility] CONVERSION BUN 15 6 - 24 mg/dL [facility] TO [facility] CONVERSION CREATININE S/P/B 0.72 0.57 - 1.00 mg/dL [facility] TO EPIC CONVERSION EGFR NON-AFR. AMER. 95 >59 mL/min/1.7 3 [facility] TO EPIC CONVERSION EGFR AFR. AMER. 109 >59 mL/min/1.7 3 [facility] TO [facility]IC CONVERSION BUN CREATININE RATIO 21 9 - 23 [facility] TO [facility] CONVERSION SODIUM S/P/B 142 134 - 144 mmol/L [facility] TO [facility]IC CONVERSION POTASSIUM S/P/B 4.2 3.5 - 5.2 mmol/L [facility] TO EPIC CONVERSION CHLORIDE S/P/B 100 97 - 108 mmol/L [facility] TO [facility] CONVERSION TCO2 26 18 - 29 mmol/L [facility] TO [facility] CONVERSION CALCIUM S/P/B 9.9 8.7 - 10.2 mg/dL [facility] TO EPIC CONVERSION PROTEIN 7.5 6.0 - 8.5 g/dL [facility] TO EPIC CONVERSION ALBUMIN S/P/B 4.6 3.5 - 5.5 g/dL [facility] TO [facility]IC CONVERSION GLOBULIN 2.9 1.5 - 4.5 g/dL [facility] TO [facility]IC CONVERSION A/G RATIO 1.6 1.1 - 2.5 [facility] T O EPIC CONVERSION BILIRUBIN TOTAL (FLUID) 0.4 0.0 - 1.2 mg/dL [facility] TO EPIC CONVERSION ALKALINE PHOSPHATASE S/P/B 59 39 - 117 IU/L [facility] TO [facility] CONVERSION AST 24 0 - 40 IU/L [facility] TO [facility] CONVERSION ALT 33(H) 0 - 32 IU/L [facility] CONVERSION 01/21/2015 01/21/2015 Narrative [facility] CONVERSION - 01/22/2015 7:49 AM CDT Result Communication: No patient communication needed at this time Zane Foy MD LABORATORY Final Result Performing Organization Address City/State/[facility] Co de Phone Number [facility] TO [facility] CONVERSION * (ABNORMAL) LIPID PANEL (01/21/2015 12:00 AM CDT) [facility] CHOLESTEROL 219(H) 100 - 199 mg/dL [facility] TO [facility] CONVERSION TRIGLYCERIDES 62 0 - 149 mg/dL [facility] TO [facility] CONVERSION HDL 78 >39 mg/dL [facility] T O EPIC CONVERSION Comment: Result Comment: According to ATP-III Guidelines, HDL-C >59 mg/dL is considered a negative risk factor for CHD. VLDL CALCULATION 12 5 - 40 mg/dL [facility] TO [facility] CONVERSION LDL (CALCULATED) 129(H) 0 - 99 mg/dL [facility] TO [facility]IC CONVERSION COMMENT [facility] T O EPIC CONVERSION 01/21/2015 01/21/2015 Narrative [facility] TO [facility] CONVERSION - 01/22/2015 7:49 AM CDT Result Communication: No patient communication needed at this time us Zane Foy MD LABORATORY Final Result [facility] TO [facility] CONVERSION documented in this encounter Visit Diagnoses Not on filedocumented in this encounter Care Teams Materials Planning Analyst Relationship Specialty Start Date End Date Zane Foy MD PCP - General 08/02/16 02/02/18 Zane Foy MD PCP - General 05/31/16 08/01/16 Zane Foy MD PCP - General 11/08/15 05/30/16 Codi Winters APNP Family & Internal Medicine [address] [phone] PCP - General ADVANCED PRACTICE COLLATOR 02/03/18 11/23/22 Staci Sanchez MD Family & Internal Medicine [address] [phone] [employer] Car Checker INTERVENTIONAL CARDIOLOGY 02/16/18 documented as of this encounter
--- OUTSIDE RECORDS SUMMARY | 2024-08-26 07:10 | XMS_ITS | Encounter Summary ---
Author Organization [facility] Address [address] [place] [address]. [place], [place] [address] [place] [address] Care Team Providers Care Pattern Perforating Machine Operator Name Role Phone Zane Foy MD Primary Care Provider Zane Ruiz MD Primary Care Provider Zane Ruiz MD Primary Care Provider Donovan junior Encounter Details Date Type Department Care Team (Late st Contact Info) Description 10/02/2013 Abstract [facility] [address] Sammy Taylor MD Social History Tobacco Use Types Packs/Day [...] (Late Contact Info) Description 11/06/2024 12:30 PM CONTRACT ENGINEER Appointment [facility] [address] Danny Steele MD [facility] [address] [address] 11/06/2024 1:00 PM CONTRACT ENGINEER Appointment [facility] [address] Danny Steele MD [address] [place] [address] documented as of this encounter Visit Diagnoses Diagnosis Laboratory exam ordered as part of routine general medical examination Laboratory examination ordered as part of a routine general medical examination documented in this encounter Care Teams Pattern Perforating Machine Operator Relationship Specialty Start Date End Date Zane Foy MD PCP - General 08/02/16 02/02/18 Zane Foy MD PCP - General 05/31/16 08/01/16 Zane Foy MD PCP - General 11/08/15 05/30/16 documented as of this encounter
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
--- OUTSIDE RECORDS SUMMARY | 2024-08-26 07:10 | XMS_ITS | Encounter Summary ---
Author Organization [facility] Address [address] [place] [address]. [place], [place] [address] [place] [address] Care Team Providers Care Complaint Clerk Name Role Phone Zane Foy MD Primary Care Provider Zane Ruiz MD Primary Care Provider Zane Ruiz MD Primary Care Provider Codi Higgins Primary Care Provider [phone] Staci Sanchez MD Unavailable [phone] Encounter Details Date Type Department Care Team (Latest Contact Info) Description 11/15/2011 Abstract [facility] Sammy Taylor MD Social History Tobacco Use [...] st Contact Info) Description 11/06/2024 12:30 PM ROOF PLUMBER Appointment [facility] [place] [address] Danny Steele MD [address] [place] [phone] 11/06/2024 1:00 PM ROOF PLUMBER Appointment [facility] [place], [place] [address] Danny Steele MD [facility] [address] [address] documented as of this encounter Visit Diagnoses Not on filedocumented in this encounter Care Teams Complaint Clerk Relationship Specialty Start Date End Date Zane Foy MD PCP - General 08/02/16 02/02/18 Zane Foy MD PCP - General 05/31/16 08/01/16 Zane Foy MD PCP - General 11/08/15 05/30/16 Codi Winters APNP Family & Internal Medicine [address] [phone] PCP - General ADVANCED PRACTICE CYLINDER PRESS OPERATOR APPRENTICE 02/03/18 11/23/22 Staci Sanchez MD Family & Internal [address] [address] Nadira Cuprous Chloride Helper INTERVENTIONAL CARDIOLOGY 02/16/18 documented as of this encounter
--- OUTSIDE RECORDS SUMMARY | 2024-08-26 07:10 | XMS_ITS | Encounter Summary ---
Author Organization [facility] Address [address] [place] [address]. [place], [place] [address] [place] [address] Care Team Providers Care Toll Testboard Worker Name Role Phone Zane Foy MD Primary Care Provider Zane Ruiz MD Primary Care Provider Zane Ruiz MD Primary Care Provider Codi Higgins Primary Care Provider [phone] Staci Sanchez MD Unavailable [phone] Encounter Details Date Type Department Care Team (Latest Contact Info) Description 12/05/2015 Abstract [facility] Medical Group Zane Foy MD Social History Tobacco Use [...] st Contact Info) Description 11/06/2024 12:30 PM CHUCKING MACHINE SET UP OPERATOR Appointment [facility] [place] [address] Danny Steele MD [address] [place] [address] [phone] 11/06/2024 1:00 PM CHUCKING MACHINE SET UP OPERATOR Appointment [facility] [place], [place] [address] Danny Steele MD [facility] [address] documented as of this encounter Visit Diagnoses Not on filedocumented in this encounter Care Teams Toll Testboard Worker Relationship Specialty Start Date End Date Zane Foy MD PCP - General 08/02/16 02/02/18 Zane Foy MD PCP - General 05/31/16 08/01/16 Zane Foy MD PCP - General 11/08/15 05/30/16 Codi Winters APNP Family & Internal Medicine [address] [phone] PCP - General ADVANCED PRACTICE MANAGER VIDEO 02/03/18 11/23/22 Staci Sanchez MD [facility] Medicine [address] [address] Nadira Leather Goods I Assembler INTERVENTIONAL CARDIOLOGY 02/16/18 documented as of this encounter
--- OUTSIDE RECORDS SUMMARY | 2024-08-26 07:10 | XMS_ITS | Encounter Summary ---
Author Organization [facility] Address [address] [place] [address]. [place], [place] [address] [place] [address] Care Team Providers Care Intervention Analyst Name Role Phone Zane Foy MD Primary Care Provider Zane Ruiz MD Primary Care Provider Zane Ruiz MD Primary Care Provider Codi Higgins Primary Care Provider [phone] Staci Sanchez MD Unavailable [phone] Encounter Details Date Type Department Care Team (Latest Contact Info) Description 01/22/2015 Abstract [facility] Medical Group Zane Foy MD Social History [...] st Contact Info) Description 11/06/2024 12:30 PM CHICKEN HANDLER Appointment [facility] [place] [address] Danny Steele MD [address] [place] [address] [phone] 11/06/2024 1:00 PM CHICKEN HANDLER Appointment [facility] [place], [place] [address] Danny Steele MD [facility] [address] [address] documented as of this encounter Visit Diagnoses Not on filedocumented in this encounter Care Teams Intervention Analyst Relationship Specialty Start Date End Date Zane Foy MD PCP - General 08/02/16 02/02/18 Zane Foy MD PCP - General 05/31/16 08/01/16 Zane Foy MD PCP - General 11/08/15 05/30/16 Codi Winters APNP Family & Internal Medicine [address] [phone] PCP - General ADVANCED PRACTICE SURGICAL SERVICES ASST 02/03/18 11/23/22 Staci Sanchez MD Family [facility] Internal Medicine [address] [address] Nadira Teamcenter Consultant INTERVENTIONAL CARDIOLOGY 02/16/18 documented as of this encounter
--- OUTSIDE RECORDS SUMMARY | 2024-08-26 07:10 | XMS_ITS | Encounter Summary ---
Author Organization [facility] Address [address] [place] [address]. [place] [address] [place] [address] Care Team Providers Care Hris Manager Name Role Phone Zane Foy MD Primary Care Provider Zane Ruiz MD Primary Care Provider Zane Ruiz MD Primary Care Provider Codi Higgins Primary Care Provider [phone] Staci Sanchez MD Unavailable [phone] Encounter Details Date Type Department Care Team (Latest Contact Info) Description 11/08/2015 Abstract [facility] Medical Group Social History Tobacco [...] st Contact Info) Description 11/06/2024 12:30 PM INTERACTIVE VIDEO TECHNICIAN Appointment [facility] [place], [place] 26[address]19 Danny Steele MD [address] [place] [address] [phone] 11/06/2024 1:00 PM INTERACTIVE VIDEO TECHNICIAN Appointment [facility] [place] [address]289 Danny Steele MD [address] [place] [address] documented as of this encounter Visit Diagnoses Not on filedocumented in this encounter Care Teams Hris Manager Relationship Specialty Start Date End Date Zane Foy MD PCP - General 08/02/16 02/02/18 Zane Foy MD PCP - General 05/31/16 08/01/16 Zane Foy MD PCP - General 11/08/15 05/30/16 Codi Winters APNP Family & Internal Medicine [address] [address] PCP - General ADVANCED PRACTICE ELECTRIC SIGN WIRER 02/03/18 11/23/22 Staci Sanchez MD [facility] [address] [address] Nadira Line Worker INTERVENTIONAL CARDIOLOGY 02/16/18 documented as of this encounter
--- OUTSIDE RECORDS SUMMARY | 2024-08-26 07:10 | XMS_ITS | Encounter Summary ---
Author Organization [facility] Address [address] [place] [address]. [place] [address] [place] [address] Care Team Providers Care Waste Machine Operator Name Role Phone Zane Foy MD Primary Care Provider Zane Ruiz MD Primary Care Provider Zane Ruiz MD Primary Care Provider Donovan junior Encounter Details Date Type Department Care Team (Late st Contact Info) Description 11/08/[address] [facility] Emergency Room [place], [place] [phone] Melly Chiu PASaloniC [address] [facility] [address] [phone] Social History Tobacco Use Types Packs/Day Years [...] st Contact Info) Description 11/06/2024 12:30 PM MANAGER COMPLIANCE Appointment [facility] [place], [place] [phone] Danny Steele MD [facility] [address] [phone] 11/06/2024 1:00 PM MANAGER COMPLIANCE Appointment [facility] [address] [facility] [place] [address] Danny Steele MD [address] [facility] [address] [place], [place] [phone] documented as of this encounter Visit Diagnoses Diagnosis Strain of muscle, fascia and tendon at neck level, initial encounter documented in this encounter Care Teams Waste Machine Operator Relationship Specialty Start Date End Date Zane Foy MD PCP - General 08/02/16 02/02/18 Zane Foy MD PCP - General 05/31/16 08/01/16 Zane Foy MD PCP - General 11/08/15 05/30/16 documented as of this encounter
--- OUTSIDE RECORDS SUMMARY | 2024-08-26 07:10 | XMS_ITS | Encounter Summary ---
Author Organization [facility] Address [address] [place] [address]. [place] [address] [place] [address] Care Team Providers Care Plate Drying Machine Tender Name Role Phone Zane Foy MD Primary Care Provider Zane Ruiz MD Primary Care Provider Zane Ruiz MD Primary Care Provider Donovan junior Encounter Details Date Type Department Care Team (Late st Contact Info) Description 05/15/2008 Abstract [facility] Diagnostic Imaging [address] [place], [place] [phone] , Cheko Fischer MD Social History Tobacco [...] (Late Contact Info) Description 11/06/2024 12:30 PM ENDOCRINOLOGY PHYSICIAN Appointment [facility] [place], [place] [phone] Danny Steele MD [facility] [address] 11/06/2024 1:00 PM ENDOCRINOLOGY PHYSICIAN Appointment [facility] [place] [address] Danny Steele MD [facility] [address] [address] documented as of this encounter Visit Diagnoses Not on filedocumented in this encounter Care Teams Plate Drying Machine Tender Relationship Specialty Start Date End Date Zane Foy MD PCP - General 08/02/16 02/02/18 Zane Foy MD PCP - General 05/31/16 08/01/16 Zane Foy MD PCP - General 11/08/15 05/30/16 documented as of this encounter
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
--- OUTSIDE RECORDS SUMMARY | 2024-08-26 07:10 | XMS_ITS | Encounter Summary ---
Author Organization [facility] Address [address] [place] [address]. [place] [address] [place] [address] Care Team Providers Care Program Advisor Name Role Phone Zane Foy MD Primary Care Provider Zane Ruiz MD Primary Care Provider Zane Ruiz MD Primary Care Provider Donovan junior Encounter Details Date Type Department Care Team (Late Contact Info) Description 08/08/2006 Abstract [place] [place] [address] Judson Abreu MD [address] [facility] [address] [place] [address] Social History Tobacco Use Types Packs/Day Years [...] (Late Contact Info) Description 11/06/2024 12:30 PM TRUSS PULLER HELPER Appointment [facility] [place] [address] Danny Steele MD [facility] [address] [phone] 11/06/2024 1:00 PM TRUSS PULLER HELPER Appointment [facility] [place] [address] Danny Steele MD [facility] [address] [phone] documented as of this encounter Visit Diagnoses Not on filedocumented in this encounter Care Teams Program Advisor Relationship Specialty Start Date End Date Zane Foy MD PCP - General 08/02/16 02/02/18 Zane Foy MD PCP - General 05/31/16 08/01/16 Zane Foy MD PCP - General 11/08/15 05/30/16 documented as of this encounter
--- OUTSIDE RECORDS SUMMARY | 2024-08-26 07:10 | XMS_ITS | Encounter Summary ---
Author Organization [facility] Address [address] [place] [address]. [place] [address] [place] [address] Care Team Providers Care Welcome Desk Agent Name Role Phone Zane Foy MD Primary Care Provider Zane Ruiz MD Primary Care Provider Zane Ruiz MD Primary Care Provider Cdoi Higgins Primary Care Provider [phone] Staci Sanchez MD Unavailable [phone] Encounter Details Date Type Department Care Team (Latest Contact Info) Description 09/02/2014 Abstract [facility] Medical Group Social History Tobacco [...] st Contact Info) Description 11/06/2024 12:30 PM EQUIPMENT ENGINEERING TECHNICIAN Appointment [facility] [place], [place] [address] Danny Steele MD [address] [place] [address] [phone] 11/06/2024 1:00 PM EQUIPMENT ENGINEERING TECHNICIAN Appointment [facility] [place], [place] [address] Danny Steele MD [address] [place] [address] documented as of this encounter Visit Diagnoses Not on filedocumented in this encounter Care Teams Welcome Desk Agent Relationship Specialty Start Date End Date Zaen Foy MD PCP - General 08/02/16 02/02/18 Zane Foy MD PCP - General 05/31/16 08/01/16 Zane Foy MD PCP - General 11/08/15 05/30/16 Codi Winters APNP Family & Internal Medicine [address] [address] PCP - General ADVANCED PRACTICE CLINICAL REHAB LIAISON 02/03/18 11/23/22 Staci Sanchez MD [facility] [address] [address] Nadira Refuge Manager INTERVENTIONAL CARDIOLOGY 02/16/18 documented as of this encounter
--- OUTSIDE RECORDS SUMMARY | 2024-08-26 07:10 | XMS_ITS | Encounter Summary ---
Author Organization [facility] Address [address] [place] [address]. [place], [place] [address] [place] [address] Care Team Providers Care Support Services Manager Name Role Phone Zane Foy MD Primary Care Provider Zane Ruiz MD Primary Care Provider Zane Ruiz MD Primary Care Provider Codi Higgins Primary Care Provider [phone] tSaci Sanchez MD Unavailable [phone] Encounter Details Date Type Department Care Team (Latest Contact Info) Description 10/09/2012 Abstract [facility] Medical Group Sammy Taylor MD Social History [...] Sign Reading Time Taken Comments Blood Pressure 126/80 10/09/2012 2:16 PM MEDICAL DEVICE SALES CONSULTANT Pulse 72 10/09/2012 2:16 PM MEDICAL DEVICE SALES CONSULTANT Temperature - - Respiratory Rate - - Oxygen Saturation - - Inhaled Oxygen Concentration - - Weight 82.6 kg (182 lb) 10/09/2012 2:16 PM MEDICAL DEVICE SALES CONSULTANT Height 167.6 cm (5' 6 ) 10/09/2012 2:16 PM MEDICAL DEVICE SALES CONSULTANT Body Mass Index 29.38 10/09/2012 2:16 PM MEDICAL DEVICE SALES CONSULTANT documented in this encounter Progress Notes * Sammy Taylor MD - 10/09/2012 2:15 PM CST Chief Complaint 1. Shortness of Breath 2. Anxiety 3. Palpitations PHYSICAL. PT ALSO C/O SEVERAL SYMPTOMS. SEE LIST History of Present Illness HPI Free Text: Saray here with a variety of symptoms. She has been under a lot ofstress dealing with her aging mom's health and helping her sister in rough times. she has felt fatigued, palpitations, anxiety, occ dyspnea, no CP, difficulty focusing, decreased memory, occ parasthesias left forearm and left lower leg, occ associated with low back or mild neck pain. Review of Systems Constitutional: fatigue, but no fever and no chills. Head and Face: negative. Eyes: negative. ENT: negative. Cardiovascular: palpitations, but no chest pain, the heart is not racing, no lightheadedness and nolower extremity edema. Respiratory: shortness of breath, but no wheezing and no cough. Gastrointestinal: no abdominal pain, no abdominal bloating, no nausea, no vomiting, no diarrhea, noconstipation, no bright red blood per rectum and no melena. Genitourinary: urinary frequency, but no dysuria, no urinary urgency, no flank pain, no pelvic painand no hematuria. Psychiatric: insomnia and anxiety. Hematologic and Lymphatic: no swollen glands. Active Problems 1. Fatigue 780.79 Social History ?? Former Smoker V15.82 Current Meds 1. Microgestin FE 09/24 1-20 MG-MCG Oral Tablet; TAKE 1 TABLET DAILY DIRECTED; Therapy: (Recorded:[id number]) to Recorded; Dispense: 0 Days ; #: Sufficient Tablet; Refill: 0; Record; Last Updated By: Laurence Fernandez Allergies 1. No Known Drug Allergies No Known Drug Allergies Vitals [id number] 02:16PM Heart Rate 72 Respiration 18 Systolic 126 Diastolic 80 BMI Calculated 29.25 BSA Calculated 1.92 Height 5 ft 6 in Weight 182 lb Physical Exam Constitutional General appearance: No acute distress, well appearing and well nourished. Eyes Conjunctiva and lids: No swelling, erythema or discharge. Pupils and irises: Equal, round and reactive to light. Ears, Nose, Mouth, and Throat External inspection [...] lymph nodes in neck: No lymphadenopathy. Musculoskeletal Strength 5/5 UE, LE. Assessment 1. Fatigue 780.79 fatigue, palpitations, memory and focus issues, anxiety, dyspnea Plan Unlinked ?? KlonoPIN 0.5 MG Oral Tablet; TAKE 1 TABLET AT BEDTIME; Status: DISCONTINUED Recorded; Dispense: 0 Days ; #: Sufficient Tablet; Refill: 0; Record; Last Updated By: Laurence Fernandez check complete labs to start. Sees gyne this week Signatures Electronically signed by : Sammy Taylor M.D.; Oct 09 2012 3:03PM (Author) CAL DEVICE SALES CONSULTANT documented in this encounter Plan of Treatment Upcoming Encounters Date Type Department Care Team (Late st Contact Info) Description 11/06/2024 12:30 PM MEDICAL DEVICE SALES CONSULTANT Appointment [facility] [place] [address] Danny Steele MD [address] [place] [phone] 11/06/2024 1:00 PM MEDICAL DEVICE SALES CONSULTANT Appointment [facility] [place] [address] Danny Steele MD [address] [place] [address] [phone] documented as of this encounter Visit Diagnoses Not on filedocumented in this encounter Care Teams Support Services Manager Relationship Specialty Start Date End Date Zane Foy MD PCP - General 08/02/16 02/02/18 Zane Foy MD PCP - General 05/31/16 08/01/16 Zane Foy MD PCP - General 11/08/15 05/30/16 Codi Winters APNP [facility] Medicine [address] [address] PCP - General ADVANCED PRACTICE MYSQL DATABASE ADMINISTRATOR 02/03/18 11/23/22 Staci Sanchez MD [facility] Medicine [address] [address] Nadira Knockdown Worker INTERVENTIONAL CARDIOLOGY 02/16/18 documented as of this encounter
--- OUTSIDE RECORDS SUMMARY | 2024-08-26 07:10 | XMS_ITS | Encounter Summary ---
Author Organization [facility] Address [address] [place] [address]. [place], [place] [id number] [place] [address] Care Team Providers Care Comb Setter Name Role Phone Zane Foy MD Primary Care Provider Zane Ruiz MD Primary Care Provider Zane Ruiz MD Primary Care Provider Donovan junior Encounter Details Date Type Department Care Team (Late st Contact Info) Description 11/15/2011 Abstract [facility] [address] Sammy Taylor MD Social History Tobacco Use [...] (Late Contact Info) Description 11/06/2024 12:30 PM COCONUT BOILER Appointment [facility] [address] Danny Steele MD [facility] [address] [address] 11/06/2024 1:00 PM COCONUT BOILER Appointment [facility] [address] Danny Steele MD [address] [place] [address] documented as of this encounter Visit Diagnoses Diagnosis Routine general medical examination at a health care facility documented in this encounter Care Teams Comb Setter Relationship Specialty Start Date End Date Zane Foy MD PCP - General 08/02/16 02/02/18 Zane Foy MD PCP - General 05/31/16 08/01/16 Zane Foy MD PCP - General 11/08/15 05/30/16 documented as of this encounter
--- OUTSIDE RECORDS SUMMARY | 2024-08-26 07:10 | XMS_ITS | Encounter Summary ---
Author Organization [facility] Address [address] [place] [address]. [place] [address] [place] [address] Care Team Providers Care Hybrid Technologist Name Role Phone Zane Foy MD Primary Care Provider Zane Ruiz MD Primary Care Provider Zane Ruiz MD Primary Care Provider Codi Higgins Primary Care Provider [phone] Staci Sanchez MD Unavailable [phone] Encounter Details Date Type Department Care Team (Latest Contact Info) Description 11/14/2015 Abstract [facility] Social History Tobacco [...] st Contact Info) Description 11/06/2024 12:30 PM AUTOMATION TEST ENGINEER Appointment [facility] [place], [place] [address] Danny Steele MD [address] [place] [phone] 11/06/2024 1:00 PM AUTOMATION TEST ENGINEER Appointment [facility] [place], [place] [address] Danny Steele MD [address] [place] [phone] documented as of this encounter Visit Diagnoses Not on filedocumented in this encounter Care Teams Hybrid Technologist Relationship Specialty Start Date End Date Zane Foy MD PCP - General 08/02/16 02/02/18 Zane Foy MD PCP - General 05/31/16 08/01/16 Zane Foy MD PCP - General 11/08/15 05/30/16 Codi Winters APNP Family & Internal Medicine [address] [address] PCP - General ADVANCED PRACTICE TRAVELING CRANE OPERATOR 02/03/18 11/23/22 Staci Sanchez MD [facility] [address] [address] Nadira Precast Concrete Products Installer INTERVENTIONAL CARDIOLOGY 02/16/18 documented as of this encounter
--- OUTSIDE RECORDS SUMMARY | 2024-08-26 07:10 | XMS_ITS | Encounter Summary ---
Author Organization [facility] Address [address] [place] [address]. [place], [place] [address] [place] [address] Care Team Providers Care Director Of Enterprise Applications Name Role Phone Zane Foy MD Primary Care Provider Zane Ruiz MD Primary Care Provider Zane Ruiz MD Primary Care Provider Codi Higgins Primary Care Provider [phone] Staci Sanchez MD Unavailable [phone] Encounter Details Date Type Department Care Team (Latest Contact Info) Description 10/02/[address] [facility] Sammy Taylor MD Social History [...] Sign Reading Time Taken Comments Blood Pressure 122/76 10/02/2013 2:57 PM POULTRY FARM LABORER Pulse 81 10/02/2013 2:57 PM POULTRY FARM LABORER Temperature - - Respiratory Rate - - Oxygen Saturation - - Inhaled Oxygen Concentration - - Weight 82.6 kg (182 lb) 10/02/2013 2:57 PM POULTRY FARM LABORER Height - - Body Mass Index 29.38 10/09/2012 2:16 PM POULTRY FARM LABORER documented in this encounter Progress Notes * Sammy Taylor MD - 10/02/2013 2:45 PM CST Chief Complaint YEARLY CHECK-UP. ALSO F/U POST TAKING PREDNISONE FOR BODY ACHES AND COUGH History of Present Illness HM, Adult Female: The patient is being seen for a health maintenance evaluation. General Health: The patient's health since the last visit is described as good. Lifestyle:. She consumes a diverse and healthy diet. She exercises regularly. Screening: Review of Systems Constitutional: negative. Head and Face: negative. Eyes: negative. ENT: negative. Cardiovascular: negative. Respiratory: negative. Gastrointestinal: negative. Genitourinary: negative. Musculoskeletal: negative. Integumentary negative. Negative negative Psychiatric: negative. negative Hematologic and Lymphatic: negative. Active Problems 1. Cough 786.2 2. Fatigue 780.79 Past Medical History ?? History of Sarcoidosis 135 Surgical History Denied ?? History of Surgery Family History ?? Family history of Alzheimer Disease ?? Family history of Chronic Obstructive Pulmonary Disease ?? Family history of Heart Disease V17.49 ?? Family history of Hypertension V17.49 Social History ?? Former Smoker V15.82 Current Meds 1. Microgestin FE 09/24 1-20 MG-MCG Oral Tablet; TAKE 1 TABLET DAILY DIRECTED; Therapy: (Recorded:[id number]) to Recorded; Dispense: 0 Days ; #: Sufficient Tablet; Refill: 0; Record; Last Updated By: Laurence Fernandez Allergies 1. No Known Drug Allergies No Known Drug Allergies Vitals 02Oct2013 02:57PM Heart Rate 81 Respiration 18 Systolic 122 Diastolic 76 O2 Saturation 98 BMI Calculated 29.25 BSA Calculated 1.92 Weight 182 lb Physical Exam Constitutional General [...] lymph nodes in neck: No lymphadenopathy. Musculoskeletal Inspection/palpation of joints, bones, and muscles: Normal. Skin Skin and subcutaneous tissue: Normal without rashes or lesions. Neurologic Reflexes: 2+ and symmetric. Sensation: No sensory loss. Results/Data Lipid Profile 02Oct2013 03:58PM Sammy Taylor Test Name Result Flag Reference Cholesterol 216 mg/dL H <200 Triglycerides 91 mg/dL <150 HDL Cholesterol 61 mg/dL >59 LDL Cholesterol, Calculated 137 mg/dL H <100 Non HDL, Calc 155 mg/dL H <130 NOTE: WHEN THE TRIGLYCERIDES ARE >200 mg/dL, NON HDL C IS A SECONDARY TARGET OF THERAPY, WITH A GOAL 30 mg/dL HIGHER THAN THE IDENTIFIED LDL C GOAL. Cholesterol/HDL Ratio 3.5 0.0-4.5 VLDL Cholesterol 18 mg/dL 5-55 NIH CONCENSUS REPORT RECOMMENDATIONS: ADULT CHILD LOW RISK: CHOLESTEROL <200 <170 TRIGLYCERIDE <150 --- HDL >=60 --- LDL <100 <110 BORDERLINE: CHOLESTEROL 200-239 170-199 TRIGLYCERIDE 150-199 --- HDL 40-59 --- LDL 100-159 110-129 HIGH RISK: CHOLESTEROL >=240 >=200 TRIGLYCERIDE >=200 --- HDL <40 --- LDL >=160 >=130 CBC W Differential 02Oct2013 03:58PM Sammy Taylor Test Name Result Flag Reference White Blood Cell Count (WBC) 6.3 X10'3/uL 4.8-10.8 Red Blood Cell Count (RBC) 4.62 X10'6/uL 4.20-5.40 Hemoglobin (HGB) 12.9 g/dL 12.0-16.0 Hematocrit (HCT) 39.5 % 37.0-47.0 Mean Corpuscular Volume (MCV) 85.5 fL 81.0-99.0 Mean Corpuscular Hgb (MCH) 27.9 pg 27.0-31.0 Mean Corpuscular Hgb Conc (MCH 32.7 g/dL 32.0-36.0 Red Cell Distrib Width (RDW) 14.8 % H 11.5-14.5 Platelet Count (PLT) 202 X10'3/uL 130-400 Mean Platelet Volume (MPV) 9.5 fL 7.0-10.4 Basophils % (Auto) 0.4 % 0.0-1.0 Eosinophils % (Auto) 1.6 % 1.0-3.0 Neutrophils % (Auto) 52.3 % 43.0-65.0 Lymphocytes % (Auto) 36.9 % 20.0-46.0 Monocytes % (Auto) 8.8 % 5.0-12.0 RBC Morphology 1+Anisocytosis Differential Type AUTOMATED CMP / Liver 02Oct2013 03:58PM Brandon Sammy Test Name Result Flag Reference Glucose 86 mg/dL 70-99 Blood Urea Nitrogen (BUN) 8 mg/dL 8-23 CREATININE 0.73 mg/dL 0.60-1.10 Sodium (Na) 142 mmol/L 136-145 Potassium (K) 4.4 mmol/L 3.5-5.1 Chloride (Cl) 104 mmol/L 98-107 Carbon Dioxide (CO2) 26 mmol/L 22-29 Anion Gap 16 8-20 Calcium 9.0 mg/dL 8.6-10.2 Total Bilirubin 0.5 mg/dL 0.2-1.2 Direct Bilirubin <0.20 mg/dL 0.0-0.3 Indirect Bilirubin NOT CALCULATED mg/dL 0.0-0.9 Total Protein 7.5 g/dL 6.4-8.3 ALBUMIN 4.2 g/dL 3.5-5.2 AST/GOT 12 IU/L 0-32 ALT/GPT 13 IU/L 0-33 Alkaline Phosphatase (ALKP) 44 IU/L 35-104 A:G Ratio 1.3 1.0-2.0 Glomerular Filt Rate Calc >60 mL/min/1.73m'2 >60 >60 NOTE: eGFR is not calculated for patients <18 years of age. This is an estimated GFR (CKD EPI) and should not be used for calculating drug doses. mL/min/1.73m'2 Globulin, Calc 3.3 g/dL 2.3-3.6 Thyroid Stim Hormone ( TSH ) 02Oct2013 03:58PM Brandon Sammy Test Name Result Flag Reference Thyroid Stim Hormone (TSH) 0.56 mIU/mL 0.27-4.20 Assessment 1. Health Maintenance V70.0 Well yealry exam. Patient see's a paper core machine operator yearly and has had normal paps and mammograms. Patient did have a recent normal colonoscopy. I will order routine fasting labs today and we will call patient with results. Patient advised to follow up yearly Plan Blood Chemistry Screening Tests As Part Of General Physical Exam (V72.62) ?? CBC W Differential Done: 02Oct2013 03:58PM Ordered; For: Blood Chemistry Screening Tests As Part Of General Physical Exam (V72.62); Ordered By: Sammy Taylor Performed: [facility] Due: [id number]; Last Updated By: Brenna Rich ?? CMP / Liver Done: 02Oct2013 03:58PM Ordered; For: Blood Chemistry Screening Tests As Part Of General Physical Exam (V72.62); Ordered By: Sammy Taylor Performed: [facility] Due: [id number]; Last Updated By: Brenna Rich ?? Lipid Profile Done: 02Oct2013 03:58PM Ordered; For: Blood Chemistry Screening Tests As Part Of General Physical Exam (V72.62); Ordered By: Sammy Taylor Performed: [facility] Due: [id number]; Last Updated By: Brenna Rich ?? Thyroid Stim Hormone ( TSH ) Done: 02Oct2013 03:58PM Ordered; For: Blood Chemistry Screening Tests As Part Of General Physical Exam (V72.62); Ordered By: Sammy Taylor Performed: [facility] Due: [id number]; Last Updated By: Brenna Rich Cough (786.2) ?? Levofloxacin 500 MG Oral Tablet; TAKE 1 TABLET Daily FOR 7 DAYS; Therapy: 18Sep2013 to 02Oct2013; Last Rx:18Sep2013; Status: DISCONTINUED Ordered; For: Cough (786.2); Rx By: Sammy Taylor; Dispense: 0 Days ; #:7 Tablet; Refill: 0; Sent To: [facility]; Last Updated By: Laurence Fernandez ?? PredniSONE 20 MG Oral Tablet; TAKE 2 TABLETS DAILY FOR 3 DAYS, FOLLOWED BY 1 TABLET DAILY FOR 3 DAYS; Therapy: 18Sep2013 to 02Oct2013; Last Rx:18Sep2013; Status: DISCONTINUED Ordered; For: Cough (786.2); Rx By: Sammy Taylor; Dispense: 0 Days ; #:9 Tablet; Refill: 0; Sent To: [facility]; Last Updated By: Laurence Fernandez Health Maintenance (V70.0) ?? Azithromycin 250 MG Oral Tablet; TAKE 2 TABLETS ON DAY 1 THEN TAKE 1 TABLET A DAY FOR 4 DAYS; Therapy: 07Sep2013 to 02Oct2013; Last Rx:07Sep2013; Status: DISCONTINUED Ordered; For: Health Maintenance (V70.0); Rx By: Pan Taylor; Dispense: 0 Days ; #:6 Tablet; Refill: 0; Sent To: [facility]; Last Updated By: Laurence Fernandez ?? Call if: You find a new or different kind of lump in your breast. Done: 02Oct2013 Ordered; For: Health Maintenance (V70.0); Ordered By: Sammy Taylor; Last Updated By: Brenna Rich Get labs today and follow up yearly. Signatures Electronically signed by : Sammy Taylor M.D.; Oct 03 2013 9:09PM (Author) TRY FARM LABORER documented in this encounter Plan of Treatment Upcoming Encounters Date Type Department Care Team (Late st Contact Info) Description 11/06/2024 12:30 PM POULTRY FARM LABORER Appointment [facility] [place], [place] [address] Danny Steele MD [facility] [address] [phone] 11/06/2024 1:00 PM POULTRY FARM LABORER Appointment [facility] [place], [place] [address] Danny Steele MD [address] [address] documented as of this encounter Procedures Procedure Name Priority Date/Time Associated Diagnosis Comments COMPREHENSIVE METABOLIC PNL W DBIL Routine 10/02/2013 3:58 PM POULTRY FARM LABORER LIPID PANEL Routine 10/02/2013 3:58 PM POULTRY FARM LABORER CBC W/DIFF AUTOMATED Routine 10/02/2013 3:58 PM POULTRY FARM LABORER THYROID STIM HORMONE TSH Routine 10/02/2013 3:58 PM POULTRY FARM LABORER documented in this encounter Results * (ABNORMAL) CBC W/DIFF AUTOMATED (10/02/2013 3:58 PM POULTRY FARM LABORER) WBC 6.3 4.8 - 10.8 X10'3/uL [facility] TO EPIC CONVERSION RBC 4.62 4.20 - 5.40 X10'6/uL [facility] TO EPIC CONVERSION HGB 12.9 12.0 - 16.0 g/dL [facility] TO EPIC CONVERSION HCT 39.5 37.0 - 47.0 % [facility] TO EPIC CONVERSION MCV 85.5 81.0 - 99.0 fL [facility] TO EPIC CONVERSION MCH 27.9 27.0 - 31.0 pg [facility] TO EPIC CONVERSION MCHC 32.7 32.0 - 36.0 g/dL [facility] TO EPIC CONVERSION RDW 14.8(H) 11.5 - 14.5 % [facility] TO EPIC CONVERSION PLT 202 130 - 400 X10'3/uL [facility] TO EPIC CONVERSION GLUCOSE 9.5 7.0 - 10.4 fL [facility] TO EPIC CONVERSION BASOPHILS % 0.4 0.0 - 1.0 % [facility] TO EPIC CONVERSION EOSINOPHILS % 1.6 1.0 - 3.0 % [facility] TO EPIC CONVERSION NEUTROPHILS % 52.3 43.0 - 65.0 % [facility] TO EPIC CONVERSION LYMPHOCYTES % 36.9 20.0 - 46.0 % [facility] TO EPIC CONVERSION MONOCYTES % 8.8 5.0 - 12.0 % [facility] TO EPIC CONVERSION RBC MORPHOLOGY 1+Anisocytosi s [facility] TO EPIC CONVERSION DIFFERENTIAL TYPE AUTOMATED [facility] TO [facility]IC CONVERSION 10/02/2013 3:58 PM POULTRY FARM LABORER 10/02/2013 3:58 PM POULTRY FARM LABORER Narrative [facility] TO EPIC CONVERSION - 10/02/2013 9:02 PM POULTRY FARM LABORER Result Communication: Call patient with results us Sammy Taylor MD LABORATORY Final Result [facility] TO EPIC CONVERSION * COMPREHENSIVE METABOLIC PNL W DBIL (10/02/2013 3:58 PM POULTRY FARM LABORER) [facility] GLUCOSE 86 70 - 99 mg/dL [facility] TO EPIC CONVERSION BUN 8 8 - 23 mg/dL [facility] TO EPIC CONVERSION CREATININE S/P/B 0.73 0.60 - 1.10 mg/dL [facility] TO EPIC CONVERSION SODIUM S/P/B 142 136 - 145 mmol/L [facility] TO EPIC CONVERSION POTASSIUM S/P/B 4.4 3.5 - 5.1 mmol/L [facility] TO EPIC CONVERSION CHLORIDE S/P/B 104 98 - 107 mmol/L [facility] TO EPIC CONVERSION CO2 26 22 - 29 mmol/L [facility] TO EPIC CONVERSION ANION GAP 16 8 - 20 [facility] T O EPIC CONVERSION CALCIUM S/P/B 9.0 8.6 - 10.2 mg/dL [facility] TO EPIC CONVERSION BILIRUBIN TOTAL S/P/B 0.5 0.2 - 1.2 mg/dL [facility] TO EPIC CONVERSION BILIRUBIN DIRECT S/P/B <0.20 0.0 - 0.3 mg/dL [facility] TO EPIC CONVERSION BILIRUBIN INDIRECT S/P/B NOT CALCULATED 0.0 - 0.9 mg/dL [facility] TO EPIC CONVERSION TOTAL PROTEIN S/P/B 7.5 6.4 - 8.3 g/dL [facility] TO EPIC CONVERSION ALBUMIN S/P/B 4.2 3.5 - 5.2 g/dL [facility] TO EPIC CONVERSION AST 12 0 - 32 IU/L [facility] TO EPIC CONVERSION ALT 13 0 - 33 IU/L [facility] TO EPIC CONVERSION ALKALINE PHOSPHATASE S/P/B 44 35 - 104 IU/L [facility] TO EPIC CONVERSION A/G RATIO 1.3 1.0 - 2.0 [facility] TO EPIC CONVERSION GFR ESTIMATE >60 >60 mL/min/1 .73m'2 [facility] TO EPIC CONVERSION EGFR AFR. AMER. >60 NOTE: eGFR is not calculated for patients <18 years of age. This is an estimated GFR (CKD EPI) and should not be used for calculating drug doses. >60 mL/min/1 .73m'2 [facility] TO EPIC CONVERSION GLOBULIN 3.3 2.3 - 3.6 g/dL [facility] TO EPIC CONVERSION 10/02/2013 3:58 PM POULTRY FARM LABORER 10/02/2013 3:58 PM POULTRY FARM LABORER Narrative [facility] TO EPIC CONVERSION - 10/02/2013 9:35 PM POULTRY FARM LABORER Result Communication: Call patient with results Sammy Taylor MD LABORATORY Final Result [facility] TO EPIC CONVERSION * THYROID STIM HORMONE, TSH (10/02/2013 3:58 PM POULTRY FARM LABORER) TSH 0.56 0.27 - 4.20 mIU/mL [facility] TO EPIC CONVERSION 10/02/2013 3:58 PM POULTRY FARM LABORER 10/02/2013 3:58 PM POULTRY FARM LABORER Narrative [facility] TO EPIC CONVERSION - 10/02/2013 9:35 PM POULTRY FARM LABORER Result Communication: Call patient with results Sammy Taylor MD LABORATORY Final Result Performing Organization Address [facility] de Phone Number [facility] TO EPIC CONVERSION * (ABNORMAL) LIPID PANEL (10/02/2013 3:58 PM POULTRY FARM LABORER) CHOLESTEROL 216(H) <200 mg/dL [facility] TO EPIC CONVERSION TRIGLYCERIDES 91 <150 mg/dL [facility] TO EPIC CONVERSION HDL 61 >59 mg/dL [facility] TO EPIC CONVERSION LDL (CALCULATED) 137(H) <100 mg/dL [facility] TO EPIC CONVERSION NON HDL CHOLESTEROL 155(H) <130 mg/dL [facility] TO EPIC CONVERSION Comment: Result Comment: NOTE: WHEN THE TRIGLYCERIDES ARE >200 mg/dL, NON HDL C IS A SECONDARY TARGET OF THERAPY, WITH A GOAL 30 mg/dL HIGHER THAN THE IDENTIFIED LDL C GOAL. CHOL/HDL RATIO 3.5 0.0 - 4.5 [facility] TO EPIC CONVERSION VLDL CHOLESTEROL (LMP) 18 5 - 55 mg/dL [facility] TO EPIC CONVERSION LIPID INTERPRETATION NIH [...] ? >=160 ?>=130 [facility] TO EPIC CONVERSION 10/02/2013 3:58 PM POULTRY FARM LABORER 10/02/2013 3:58 PM POULTRY FARM LABORER Narrative [facility] TO EPIC CONVERSION - 10/02/2013 9:35 PM POULTRY FARM LABORER Result Communication: Call patient with results Sammy Taylor MD LABORATORY Final Result [facility] TO EPIC CONVERSION documented in this encounter Visit Diagnoses Not on filedocumented in this encounter Care Teams Director Of Enterprise Applications Relationship Specialty Start Date End Date Zane Foy MD PCP - General 08/02/16 02/02/18 Zane Foy MD PCP - General 05/31/16 08/01/16 Zane Foy MD PCP - General 11/08/15 05/30/16 Codi Winters APNP [facility] [address] [address] PCP - General ADVANCED PRACTICE NETWORK SOLUTIONS ARCHITECT 02/03/18 11/23/22 Staci Sanchez MD [facility] [address] [address] Nadira Barber Apprentice INTERVENTIONAL CARDIOLOGY 02/16/18 documented as of this encounter
--- OUTSIDE RECORDS SUMMARY | 2024-08-26 07:10 | XMS_ITS | Encounter Summary ---
Author Organization [facility] Address [address] [place] [address]. [place] [address] [place] [address] Care Team Providers Care Network Pricing Consultant Name Role Phone Zane Foy MD Primary Care Provider Zane Ruiz MD Primary Care Provider Zane Ruiz MD Primary Care Provider Donovan junior Encounter Details Date Type Department Care Team (Late st Contact Info) Description 10/12/2010 Abstract [facility] [address] [place], [place] [id number] Sammy Taylor MD Social History Tobacco Use [...] (Late Contact Info) Description 11/06/2024 12:[address] [facility] [place], [place] [address] Danny Steele MD [facility] [address] [phone] 11/06/2024 1:[address] [facility] [place], [place] [address] Danny Steele MD [facility] [address] [address] documented as of this encounter Visit Diagnoses Diagnosis Generalized pain documented in this encounter Care Teams Network Pricing Consultant Relationship Specialty Start Date End Date Zane Foy MD PCP - General 08/02/16 02/02/18 Zane Foy MD PCP - General 05/31/16 08/01/16 Zane Foy MD PCP - General 11/08/15 05/30/16 documented as of this encounter
--- OUTSIDE RECORDS SUMMARY | 2024-08-26 07:10 | XMS_ITS | Encounter Summary ---
Author Organization [facility] Address [address] [place] [address]. [place], [place] [address] [place] [address] Care Team Providers Care Maintenance Equipment Operator Name Role Phone Zane Foy MD Primary Care Provider Zane Ruiz MD Primary Care Provider Zane Ruiz MD Primary Care Provider Codi Higgins Primary Care Provider [phone] Staci aSnchez MD Unavailable [phone] Encounter Details Date Type Department Care Team (Latest Contact Info) Description 09/07/2013 Abstract [facility] , Cheko Fischer MD Social History Tobacco Use Types Packs/Day Years Used Date Smoking Tobacco: Never Assessed Comments Unknown Sex and Gender Information Value Date Recorded Sex Assigned at Not on file Legal Sex Female 8:22 PM CDT Gender Identity Not on file Sexual Orientation Straight 06/27/2024 8: 00 AM CDT documented as of this encounter Progress Notes * Sammy Taylor MD - 09/07/2013 2:20 PM CST Message Recorded as Task Date: 09/07/2013 01:52 PM, Created By: Shayy Alston Task Name: Call Back Assigned To: Shonna Hamilton Team Regarding Patient: Saray Whitten, Status: Active Comment: Shayy Alston - 07 Sep 2013 1:52 PM TASK CREATED Caller: Self; WE CALLED IN A ZPACK EARLIER FOR PT , PT IS WANTING TO KNOW IF SHE CAN HAVE SOME COUGH MEDS NO STOPCOUGHING [facility] IN [place] Brenna Sandhu - 07 Sep 2013 1:54 PM TASK REASSIGNED: Previously Assigned To Shonna [facility] Team Pan Taylor - 07 Sep 2013 2:07 PM TASK EDITED can do tessalon pearls 200mg tid for cough. please do 10 day supply with one refills Shayy Alston - 07 Sep 2013 2:20 PM TASK EDITED RXCALLED IN Signatures Electronically signed by : Shayy Alston, ; Sep 07 2013 2:20PM (Author) YARD OPERATOR * Cheko Fischer Md, MD - 09/07/2013 1:28 PM CST Message Recorded as Task Date: 09/07/2013 08:24 AM, Created By: Laura Ray Task Name: Call Back Assigned To: Shonna [facility] Team Regarding Patient: Saray Whitten, Status: In Progress Comment: Laura Ray - 07 Sep 2013 8:24 AM TASK CREATED Caller: Self; TIGHT CHEST - DEEP COUGH - SINUS PRESSURE - RUNNY NOSE - CHILLS LAST NIGHT - UNSURE OF FEVER - SXS'S SINCE YESTERDAY PHARM=-Brenna Frazier - 07 Sep 2013 8:43 AM TASK REASSIGNED: Previously Assigned To [facility] Team Pan Taylor - 07 Sep 2013 12:21 PM TASK EDITED Pan Taylor - 07 Sep 2013 12:37 PM TASK EDITED please call in z pack. if symptoms dont improve by tuesday or develops fever, needs to be evaluated in the er. Verna Vann - 07 Sep 2013 1:27 PM TASK IN PROGRESS Verna Vann - 07 Sep 2013 1:29 PM TASK EDITED escribed meds to pharm hjd Plan 1. Azithromycin 250 MG Oral Tablet; TAKE 2 TABLETS ON DAY 1 THEN TAKE 1 TABLET A DAY FOR 4 DAYS; Therapy: 07Sep2013 to (Last Rx:07Sep2013) Signatures Electronically signed by : Verna Vann, ; Sep 07 2013 1:29PM (Author) YARD OPERATOR documented in this encounter Plan of Treatment Upcoming Encounters Date Type Department Care Team (Late st Contact Info) Description 11/06/2024 12:30 PM FUEL YARD OPERATOR Appointment [facility] [place] [address] Danny Steele MD [address] [address] 11/06/2024 1:00 PM FUEL YARD OPERATOR Appointment [facility] [place] [address] Danny Steele MD [facility] [address] [phone] documented as of this encounter Visit Diagnoses Not on filedocumented in this encounter Care Teams Maintenance Equipment Operator Relationship Specialty Start Date End Date Zane Foy MD PCP - General 08/02/16 02/02/18 Zane Foy MD PCP - General 05/31/16 08/01/16 Zane Foy MD PCP - General 11/08/15 05/30/16 Codi Winters APNP Family & Internal Medicine [address] [address] PCP - General ADVANCED PRACTICE EDUCATIONAL DIAGNOSTICIAN 02/03/18 11/23/22 Staci Sanchez MD Family & Internal Medicine [address] [phone] [place] Conveyor Maintenance Mechanic INTERVENTIONAL CARDIOLOGY 02/16/18 documented as of this encounter
--- OUTSIDE RECORDS SUMMARY | 2024-08-26 07:10 | XMS_ITS | Encounter Summary ---
Author Organization [facility] Address [address] [place] [address]. [place], [place] [address] [place] [address] Care Team Providers Care Scuba Diving Teacher Name Role Phone Zane Foy MD Primary Care Provider Zane Ruiz MD Primary Care Provider Zane Ruiz MD Primary Care Provider Codi Higgins Primary Care Provider [phone] Staci Sanchez MD Unavailable [phone] Encounter Details Date Type Department Care Team (Latest Contact Info) Description 05/28/2014 Abstract [facility] Yaron Aguila MD Social History Tobacco Use Types Packs/Day [...] st Contact Info) Description 11/06/2024 12:30 PM MATERIAL REQUISITIONER Appointment [facility] [place], [place] [address] Danny Steele MD [address] [place] [address] [phone] 11/06/2024 1:00 PM MATERIAL REQUISITIONER Appointment [facility] [place], [place] [address] Danny Steele MD [facility] [address] [address] documented as of this encounter Visit Diagnoses Not on filedocumented in this encounter Care Teams Scuba Diving Teacher Relationship Specialty Start Date End Date Zane Foy MD PCP - General 08/02/16 02/02/18 Zane Foy MD PCP - General 05/31/16 08/01/16 Zane Foy MD PCP - General 11/08/15 05/30/16 Codi Winters APNP Family & Internal Medicine [address] [address] PCP - General ADVANCED PRACTICE STAFF RESPIRATORY THERAPIST 02/03/18 11/23/22 Staci Sanchez MD Family & Internal [address] [address] Nadira Lease Picker INTERVENTIONAL CARDIOLOGY 02/16/18 documented as of this encounter
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
--- OUTSIDE RECORDS SUMMARY | 2024-08-26 07:10 | XMS_ITS | Encounter Summary ---
Author Organization [facility] Address [address] [place] [address]. [place], [place] [address] [place] [address] Care Team Providers Care Real Estate Economist Name Role Phone Zane Foy MD Primary Care Provider Zane Ruiz MD Primary Care Provider Zane Ruiz MD Primary Care Provider Codi Higgins Primary Care Provider [phone] Staci Sanchez MD Unavailable [phone] Encounter Details Date Type Department Care Team (Latest Contact Info) Description 10/30/2013 Abstract [facility] Medical Group Social History Tobacco Use Types Packs/Day Years Used Date Smoking Tobacco: Never Assessed Comments Unknown Sex and Gender Information Value Date Recorded Sex Assigned at Not on file Legal Sex Female 8:22 PM CDT Gender Identity Not on file Sexual Orientation Straight 06/27/2024 8: 00 AM CDT documented as of this encounter Progress Notes * Sammy Taylor MD - 10/30/2013 3:36 PM CST Message Recorded as Task Date: 10/30/2013 03:36 PM, Created By: Sammy Taylor Task Name: Call Patient with results Assigned To: Sammy Taylor Regarding Patient: Saray Whitten, Status: In Progress Comment: Sammy Taylor - 30 Oct 2013 3:36 PM Patient sorry for delay, blood count, thyroid, sugar, kidneys,liver,electrolytes all normal. Lipids borderline elevated so work on heart healthy diet and exercise over spring and summer and suggest repeat lipids at end of summer Brenna Rich - 30 Oct 2013 3:48 PM TASK IN PROGRESS Signatures Electronically signed by : Shayy Alston, ; Oct 31 2013 8:03AM CONDUCTOR YARD (Author) UCTOR YARD * Sammy Taylor MD - 10/30/2013 3:36 PM CST Message sorry for delay, blood count, thyroid, sugar, kidneys,liver,electrolytes all normal. Lipids borderline elevated so work on heart healthy diet and exercise over spring and summer and suggest repeat lipids at end of summer10-30-13 [facility] 10-31-2013 RTP Verified Results Lipid Profile 02Oct2013 03:58PM Sammy Taylor Test [...] 3.5 0.0-4.5 VLDL Cholesterol 18 mg/dL 5-55 Lipid Profile Comment 1 (Report) NIH [...] Type AUTOMATED CMP / Liver 02Oct2013 03:58PM Sammy Taylor Test Name Result Flag Reference Glucose 86 [...] Stim Hormone ( TSH ) 02Oct2013 03:58PM Sammy Taylor Test Name Result Flag Reference Thyroid Stim Hormone (TSH) 0.56 mIU/mL 0.27-4.20 Signatures Electronically signed by : Shayy Alston, ; Oct 31 2013 8:02AM CONDUCTOR YARD (Author) UCTOR YARD documented in this encounter Plan of Treatment Upcoming Encounters Date Type Department Care Team (Late st Contact Info) Description 11/06/2024 12:30 PM CONDUCTOR YARD Appointment [facility] [place] [address] Danny Steele MD [address] [place] [phone] 11/06/2024 1:00 PM CONDUCTOR YARD Appointment [facility] [address] Danny Steele MD [address] [place] [address] [phone] documented as of this encounter Visit Diagnoses Not on filedocumented in this encounter Care Teams Real Estate Economist Relationship Specialty Start Date End Date Zane Foy MD PCP - General 08/02/16 02/02/18 Zane Foy MD PCP - General 05/31/16 08/01/16 Zane Foy MD PCP - General 11/08/15 05/30/16 Codi Winters APNP Family & Internal Medicine [address] [address] PCP - General ADVANCED PRACTICE DIRECTOR INVESTMENT BANKING 02/03/18 11/23/22 Staci Sanchez MD Family & Internal Medicine [address] [address] Nadira Fruit Raiser INTERVENTIONAL CARDIOLOGY 02/16/18 documented as of this encounter
--- OUTSIDE RECORDS SUMMARY | 2024-08-26 07:10 | XMS_ITS | Encounter Summary ---
Author Organization [facility] Address [address] [place] [address]. [place] [address] [place] [address] Care Team Providers Care Director Of Medical Services Name Role Phone Zane Foy MD Primary Care Provider Zane Ruiz MD Primary Care Provider Zane Ruiz MD Primary Care Provider Donovan junior Encounter Details Date Type Department Care Team (Late st Contact Info) Description 01/06/2005 Abstract [facility] Diagnostic Imaging [address] [place], [place] [phone] , Cheko Fischer MD Social History Tobacco [...] (Late Contact Info) Description 11/06/2024 12:30 PM WEB MARKETING COORDINATOR Appointment [facility] [place], [place] [phone] Danny Steele MD [facility] [address] [address] 11/06/2024 1:00 PM WEB MARKETING COORDINATOR Appointment [facility] [place], [place] [address] Danny Steele MD [facility] [address] [address] documented as of this encounter Visit Diagnoses Not on filedocumented in this encounter Care Teams Director Of Medical Services Relationship Specialty Start Date End Date Zane Foy MD PCP - General 08/02/16 02/02/18 Zane Foy MD PCP - General 05/31/16 08/01/16 Zane Foy MD PCP - General 11/08/15 05/30/16 documented as of this encounter
--- OUTSIDE RECORDS SUMMARY | 2024-08-26 07:10 | XMS_ITS | Encounter Summary ---
Author Organization [facility] Address [address] [place] [address]. [place], [place] [address] [place] [address] Care Team Providers Care Retail Merchandising Manager Name Role Phone Zane Foy MD Primary Care Provider Zane Ruiz MD Primary Care Provider Zane Ruiz MD Primary Care Provider Codi Higgins Primary Care Provider [phone] Staci Sanchez MD Unavailable [phone] Encounter Details Date Type Department Care Team (Latest Contact Info) Description 09/19/2013 Abstract [facility] Medical Group Social [...] Progress Notes * Sammy Taylor MD - 09/19/2013 8:58 AM CST Message Recorded as Task Date: 09/18/2013 01:33 PM, Created By: Riri Ramon Task Name: Follow Up [facility] Regarding Patient: Saray Whitten, Status: In Progress Comment: Riri Ramon - 18 Sep 2013 1:33 PM TASK CREATED Caller: Self; General Medical Question; Patient was diagnosed with the flu and Dr. Taylor gave her a Z-pack. She is still coughing a lot and her chest is still a little tight. Would like Dr. Taylor to call her in another zpack or antibiotic to [facility]. NKDA. [phone] Shayy Alston - 18 Sep 2013 1:56 PM TASK REASSIGNED: Previously Assigned To [facility]- Nursing Team we called in meds before on this pt Sammy Taylor - 18 Sep 2013 2:20 PM TASK REASSIGNED: Previously Assigned To BrandonSammy lets try levaquin 500 qd for 7 sola Prednisonne 20 mg 2 for 3d then 1 for 3d Laurence Fernandez - 18 Sep 2013 3:32 PM TASK IN PROGRESS Laurence Fernandez - 18 Sep 2013 3:33 PM TASK EDITED PATIENT IS DUE FOR AN APPT IN 3 WEEKS. PLEASE HAVE PATIENT SCHEDULE APPT AND THEN WE CAN SEND IN RX'S Riri Ramon - 18 Sep 2013 3:36 PM TASK REASSIGNED: Previously Assigned To Riri Ramon Amy - 18 Sep 2013 3:44 PM TASK EDITED left message on voicemail to please call the office to make appt. -Riri Marino - 18 Sep 2013 3:58 PM TASK REASSIGNED: Previously Assigned To [facility]- Nursing Team Shayy Alston - 18 Sep 2013 4:11 PM TASK REASSIGNED: Previously Assigned To [facility]-Usability Specialist Team Laurence Fernandez - 18 Sep 2013 4:25 PM TASK EDITED RX E-PRESCRIBED. WE STILL NEED TO CONTACT PATIENT ABOUT NEED FOR APPT Shayy Alston - 19 Sep 2013 8:58 AM TASK EDITED APPT MADE FOR 10-01-2013 AT 3:30PM Signatures Electronically signed by : Shayy Alston, ; Sep 19 2013 8:59AM (Author) NG CHECKER documented in this encounter Plan of Treatment Upcoming Encounters Date Type Department Care Team (Late st Contact Info) Description 11/06/2024 12:[address] [facility] [place] [address] Danny Steele MD [facility] [address] [phone] 11/06/2024 1:[address] [facility] [address] [facility] [place] [address] Danny Steele MD [address] [phone] documented as of this encounter Visit Diagnoses Not on filedocumented in this encounter Care Teams Retail Merchandising Manager Relationship Specialty Start Date End Date Zane Foy MD PCP - General 08/02/16 02/02/18 Zane Foy MD PCP - General 05/31/16 08/01/16 Zane Foy MD PCP - General 11/08/15 05/30/16 Codi Winters APNP Family & Internal Medicine [place] [address] [place], [place] [phone] PCP - General ADVANCED PRACTICE DISPATCHER RADIO 02/03/18 11/23/22 Staci Sanchez MD Family & Internal Medicine [place] [address] [place], [place] [phone] [place] Process Engineering Technician INTERVENTIONAL CARDIOLOGY 02/16/18 documented as of this encounter
--- OUTSIDE RECORDS SUMMARY | 2024-08-26 07:10 | XMS_ITS | Encounter Summary ---
Author Organization [facility] Address [address] [place] [address]. [place] [address] [place] [address] Care Team Providers Care Braze Operator Name Role Phone Zane Foy MD Primary Care Provider Zane Ruiz MD Primary Care Provider Zane Ruiz MD Primary Care Provider Donovan junior Encounter Details Date Type Department Care Team (Late st Contact Info) Description 11/07/2007 Emergency [facility] [place] [address] Tabatha Nicole MD [address] [place] [address] [phone] Social History Tobacco Use Types Packs/Day Years [...] Contact Info) Description 11/06/2024 12:30 PM CYBER SECURITY SPECIALIST Appointment [facility] Mammography [place], [place] [phone] Danny Steele MD [address] [place] [phone] 11/06/2024 1:00 PM CYBER SECURITY SPECIALIST Appointment [facility] [place] [address] Danny Steele MD [address] [facility] [address] [place], [place] [phone] documented as of this encounter Visit Diagnoses Not on filedocumented in this encounter Care Teams Braze Operator Relationship Specialty Start Date End Date Zane Foy MD PCP - General 08/02/16 02/02/18 Zane Foy MD PCP - General 05/31/16 08/01/16 Zane Foy MD PCP - General 11/08/15 05/30/16 documented as of this encounter
--- OUTSIDE RECORDS SUMMARY | 2024-08-26 07:10 | XMS_ITS | Encounter Summary ---
Author Organization [facility] Address [address] [place] [address]. [place] [address] [place] [address] Care Team Providers Care Economic Development Manager Name Role Phone Zane Foy MD Primary Care Provider Zane Ruiz MD Primary Care Provider Zane Ruiz MD Primary Care Provider Donovan junior Encounter Details Date Type Department Care Team (Late st Contact Info) Description 09/22/2009 Abstract [facility] [address] [place] [address] Cheko García MD Social History Tobacco Use Types Packs/Day [...] (Late Contact Info) Description 11/06/2024 12:30 PM ELEVATED MOTORMAN Appointment [facility] [place], [place] [phone] Danny Steele MD [address] [place] [address] 11/06/2024 1:00 PM ELEVATED MOTORMAN Appointment [facility] [place] [place] [address] Danny Steele MD [address] [place] [address] documented as of this encounter Visit Diagnoses Not on filedocumented in this encounter Care Teams Economic Development Manager Relationship Specialty Start Date End Date Zane Foy MD PCP - General 08/02/16 02/02/18 Zane Foy MD PCP - General 05/31/16 08/01/16 Zane Foy MD PCP - General 11/08/15 05/30/16 documented as of this encounter
--- OUTSIDE RECORDS SUMMARY | 2024-08-26 07:10 | XMS_ITS | Encounter Summary ---
Author Organization [facility] Address [address] [place] [address]. [place], [place] [address] [place] [address] Care Team Providers Care Forms Analyst Name Role Phone Zane Foy MD Primary Care Provider Zane Ruiz MD Primary Care Provider Zane Ruiz MD Primary Care Provider Donovan junior Encounter Details Date Type Department Care Team (Late st Contact Info) Description 10/09/2012 Abstract [facility] [address] Sammy Taylor MD Social History Tobacco Use [...] (Late Contact Info) Description 11/06/2024 12:30 PM NATURAL SCIENCES MANAGER Appointment [facility] [address] Danny Steele MD [facility] [address] [address] 11/06/2024 1:00 PM NATURAL SCIENCES MANAGER Appointment [facility] [address] Danny Steele MD [address] [place] [address] documented as of this encounter Visit Diagnoses Diagnosis Other malaise and fatigue documented in this encounter Care Teams Forms Analyst Relationship Specialty Start Date End Date Zaen Foy MD PCP - General 08/02/16 02/02/18 Zane Foy MD PCP - General 05/31/16 08/01/16 Zane Foy MD PCP - General 11/08/15 05/30/16 documented as of this encounter
--- OUTSIDE RECORDS SUMMARY | 2024-08-26 07:11 | XMS_ITS | Encounter Summary ---
Author Organization [facility] Address [address] [place] [address]. [place], [place] [address] [place] [address] Care Team Providers Care Construction Area Manager Name Role Phone Zane Foy MD Primary Care Provider Zane Ruiz MD Primary Care Provider Zane Ruiz MD Primary Care Provider Donovan junior Encounter Details Date Type Department Care Team (Late st Contact Info) Description 07/22/1997 Abstract [facility] [place], [place] [phone] , Generic ConversionMD Social History Tobacco Use [...] (Late Contact Info) Description 11/06/2024 12:30 PM PHP WEBSITE DEVELOPER Appointment [facility] [place] [address] Danny Steele MD [address] [place] [address] 11/06/2024 1:00 PM PHP WEBSITE DEVELOPER Appointment [facility] [address] Danny Steele MD [address] [place] [address] documented as of this encounter Visit Diagnoses Not on filedocumented in this encounter Care Teams Construction Area Manager Relationship Specialty Start Date End Date Zane Foy MD PCP - General 08/02/16 02/02/18 Zane Foy MD PCP - General 05/31/16 08/01/16 Zane Foy MD PCP - General 11/08/15 05/30/16 documented as of this encounter
--- OUTSIDE RECORDS SUMMARY | 2024-08-26 07:11 | XMS_ITS | Encounter Summary ---
Author Organization [facility] Address [address] [place] [address]. [place], [place] [address] [place] [address] Care Team Providers Care Palliative Care Nurse Practitioner Name Role Phone Zane Foy MD Primary Care Provider Zane Ruiz MD Primary Care Provider Zane Ruiz MD Primary Care Provider Donovan junior Encounter Details Date Type Department Care Team (Late st Contact Info) Description 04/20/1997 Abstract EDNA CONVERSION [place], [place] [id number] , Generic ConversionMD Social History Tobacco Use [...] (Late Contact Info) Description 11/06/2024 12:30 PM AUTOMOTIVE GLASS SPECIALIST Appointment [facility] [place] [address] Danny Steele MD [address] [place] [address] 11/06/2024 1:00 PM AUTOMOTIVE GLASS SPECIALIST Appointment [place] [address] Danny Steele MD [address] [place] [phone] documented as of this encounter Visit Diagnoses Not on filedocumented in this encounter Care Teams Palliative Care Nurse Practitioner Relationship Specialty Start Date End Date Zane Foy MD PCP - General 08/02/16 02/02/18 Zane Foy MD PCP - General 05/31/16 08/01/16 Zane Foy MD PCP - General 11/08/15 05/30/16 documented as of this encounter
--- OUTSIDE RECORDS SUMMARY | 2024-08-26 07:11 | XMS_ITS | Encounter Summary ---
Author Organization [facility] Address [address] [place] [address]. [place], [place] [address] [place] [address] Care Team Providers Care Associate Manager Name Role Phone Zane Foy MD Primary Care Provider Zane Ruiz MD Primary Care Provider Zane Ruiz MD Primary Care Provider Donovan junior Encounter Details Date Type Department Care Team (Late st Contact Info) Description 06/23/1998 Abstract [place] [address] , Generic ConversionMD Social History Tobacco Use [...] (Late Contact Info) Description 11/06/2024 12:30 PM GENERAL MAINTENANCE ENGINEER Appointment [facility] ONE [facility] [address] Danny Steele MD [address] [place] [address] 11/06/2024 1:00 PM GENERAL MAINTENANCE ENGINEER Appointment [place] [address] Danny Steele MD [address] [place] [phone] documented as of this encounter Visit Diagnoses Not on filedocumented in this encounter Care Teams Associate Manager Relationship Specialty Start Date End Date Zane Foy MD PCP - General 08/02/16 02/02/18 Zane Foy MD PCP - General 05/31/16 08/01/16 Zane Foy MD PCP - General 11/08/15 05/30/16 documented as of this encounter
--- OUTSIDE RECORDS SUMMARY | 2024-08-26 07:11 | XMS_ITS | Encounter Summary ---
Author Organization [facility] Address [address] [place] [address]. [place] [address] [place] [address] Care Team Providers Care Personal Injury Attorney Name Role Phone Zane Foy MD Primary Care Provider Zane uRiz MD Primary Care Provider Zane Ruiz MD Primary Care Provider Donovan junior Encounter Details Date Type Department Care Team (Late st Contact Info) Description 01/15/2002 Abstract [facility] [address] Danny Londono MD [address] [address] Social History Tobacco Use Types Packs/Day Years [...] st Contact Info) Description 11/06/2024 12:30 PM CONTACT MANAGER Appointment [facility] [place] [address] Danny Steele MD [facility] [address] [address] 11/06/2024 1:00 PM CONTACT MANAGER Appointment [facility] [address] Danny Steele MD [facility] [address] [phone] documented as of this encounter Visit Diagnoses Not on filedocumented in this encounter Care Teams Personal Injury Attorney Relationship Specialty Start Date End Date Zane Foy MD PCP - General 08/02/16 02/02/18 Zane Foy MD PCP - General 05/31/16 08/01/16 Zane Foy MD PCP - General 11/08/15 05/30/16 documented as of this encounter
--- OUTSIDE RECORDS SUMMARY | 2024-08-26 07:11 | XMS_ITS | Encounter Summary ---
Author Organization [facility] Address [address] [place] [address]. [place], [place] [address] [place] [address] Care Team Providers Care Perinatal Technician Name Role Phone Zane Foy MD Primary Care Provider Zane Ruiz MD Primary Care Provider Zaen Ruiz MD Primary Care Provider Donovan junior Encounter Details Date Type Department Care Team (Late st Contact Info) Description 06/17/1998 Abstract [place] [address] , Generic ConversionMD Social History Tobacco Use [...] (Late Contact Info) Description 11/06/2024 12:30 PM ANALYTICS LEADER Appointment [facility] [place] [address] Danny Steele MD [address] [place] [address] 11/06/2024 1:00 PM ANALYTICS LEADER Appointment [place] [address] Danny Steele MD [address] [place] [address] documented as of this encounter Visit Diagnoses Not on filedocumented in this encounter Care Teams Perinatal Technician Relationship Specialty Start Date End Date Zane Foy MD PCP - General 08/02/16 02/02/18 Zane Foy MD PCP - General 05/31/16 08/01/16 Zane Foy MD PCP - General 11/08/15 05/30/16 documented as of this encounter
--- OUTSIDE RECORDS SUMMARY | 2024-08-26 07:11 | XMS_ITS | Encounter Summary ---
Author Organization [facility] Address [address] [place] [address]. [place] [address] [place] [address] Care Team Providers Care Food Products Sales Representative Name Role Phone Zane Foy MD Primary Care Provider Zane Ruiz MD Primary Care Provider Zane Ruiz MD Primary Care Provider Donovan junior Encounter Details Date Type Department Care Team (Late Contact Info) Description 01/15/[address] [place] [address] Wally Dobbs MD [address] [place] [address] Social History Tobacco Use Types Packs/Day Years [...] (Late Contact Info) Description 11/06/2024 12:30 PM E COMMERCE MARKETING MANAGER [facility]ointment [facility] [address] Danny Steele MD [facility] [address] [address] 11/06/2024 1:00 PM E COMMERCE MARKETING MANAGER [facility] [place] [address] Danny Steele MD [facility] [address] [phone] documented as of this encounter Visit Diagnoses Not on filedocumented in this encounter Care Teams Food Products Sales Representative Relationship Specialty Start Date End Date Zane Foy MD PCP - General 08/02/16 02/02/18 Zane Foy MD PCP - General 05/31/16 08/01/16 Zane Foy MD PCP - General 11/08/15 05/30/16 documented as of this encounter
--- OUTSIDE RECORDS SUMMARY | 2024-08-26 07:11 | XMS_ITS | Encounter Summary ---
Author Organization [facility] Address [address] [place] [address]. [place], [place] [address] [place] [address] Care Team Providers Care Supervisor Lamp Shades Name Role Phone Zane Foy MD Primary Care Provider Zane Ruiz MD Primary Care Provider Zane Ruiz MD Primary Care Provider Donovan junior Encounter Details Date Type Department Care Team (Late st Contact Info) Description 07/03/1998 [place] [address] , Generic ConversionMD Social History Tobacco Use [...] (Late Contact Info) Description 11/06/2024 12:30 PM URBAN PLANNING TEACHER Appointment [facility] [place] [address] Danny Steele MD [address] [place] [address] 11/06/2024 1:00 PM URBAN PLANNING TEACHER Appointment [place] [address] Danny Steele MD [address] [place] [phone] documented as of this encounter Visit Diagnoses Not on filedocumented in this encounter Care Teams Supervisor Lamp Shades Relationship Specialty Start Date End Date Zane Foy MD PCP - General 08/02/16 02/02/18 Zane Foy MD PCP - General 05/31/16 08/01/16 Zane Foy MD PCP - General 11/08/15 05/30/16 documented as of this encounter
--- OUTSIDE RECORDS SUMMARY | 2024-08-26 07:11 | XMS_ITS | Encounter Summary ---
Author Organization [facility] Address [address] [place] [address]. [place], [place] [address] [place] [address] Care Team Providers Care Open Hearth Furnace Laborer Name Role Phone Zane Foy MD Primary Care Provider Zane Ruiz MD Primary Care Provider Zane Ruiz MD Primary Care Provider Donovan junior Encounter Details Date Type Department Care Team (Late st Contact Info) Description 01/23/1997 Abstract EDNA CONVERSION [place], [place] [id number] , Generic ConversionMD Social History Tobacco Use [...] (Late Contact Info) Description 11/06/2024 12:30 PM BUSINESS UNIT LEADER Appointment [facility] [place] [address] Danny Steele MD [address] [place] [address] 11/06/2024 1:00 PM BUSINESS UNIT LEADER Appointment [facility] [address] Danny Steele MD [address] [place] [phone] documented as of this encounter Visit Diagnoses Not on filedocumented in this encounter Care Teams Open Hearth Furnace Laborer Relationship Specialty Start Date End Date Zane Foy MD PCP - General 08/02/16 02/02/18 Zane Foy MD PCP - General 05/31/16 08/01/16 Zane Foy MD PCP - General 11/08/15 05/30/16 documented as of this encounter
--- OUTSIDE RECORDS SUMMARY | 2024-08-26 07:11 | XMS_ITS | Encounter Summary ---
Author Organization [facility] Address [address] [place] [address]. [place], [place] [address] [place] [address] Care Team Providers Care Sales Representative Uniforms Name Role Phone Zane Foy MD Primary Care Provider Zane Ruiz MD Primary Care Provider Zane Ruiz MD Primary Care Provider Donovan junior Encounter Details Date Type Department Care Team (Late st Contact Info) Description 08/11/1999 Emergency [facility] Emergency Room [place], [place] [id number] Cheko García MD Social History Tobacco Use [...] (Late Contact Info) Description 11/06/2024 12:30 PM ANIMATED CARTOONS PAINTER Appointment [facility] [place], [place] [phone] Danny Steele MD [address] [place] [phone] 11/06/2024 1:00 PM ANIMATED CARTOONS PAINTER Appointment [facility] [place], [place] [address] Danny Steele MD [address] [place] [address] documented as of this encounter Visit Diagnoses Not on filedocumented in this encounter Care Teams Sales Representative Uniforms Relationship Specialty Start Date End Date Zane Foy MD PCP - General 08/02/16 02/02/18 Zane Foy MD PCP - General 05/31/16 08/01/16 aZne Foy MD PCP - General 11/08/15 05/30/16 documented as of this encounter
--- OUTSIDE RECORDS SUMMARY | 2024-08-26 07:11 | XMS_ITS | Encounter Summary ---
Author Organization [facility] Address [address] [place] [address]. [place], [place] [address] [place] [address] Care Team Providers Care Public Works Inspector Name Role Phone Zane Foy MD Primary Care Provider Zane Ruiz MD Primary Care Provider Zane Ruiz MD Primary Care Provider Donovan junior Encounter Details Date Type Department Care Team (Late st Contact Info) Description 05/15/1997 Abstract [place] [address] , Generic ConversionMD Social History Tobacco Use [...] (Late Contact Info) Description 11/06/2024 12:30 PM PLANT MAINTENANCE MANAGER Appointment [facility] [place] [address] Danny Steele MD [address] [place] [address] 11/06/2024 1:00 PM PLANT MAINTENANCE MANAGER Appointment [facility] [place] [address] Dnany Steele MD [address] [place] [address] documented as of this encounter Visit Diagnoses Not on filedocumented in this encounter Care Teams Public Works Inspector Relationship Specialty Start Date End Date Zane Foy MD PCP - General 08/02/16 02/02/18 Zane Foy MD PCP - General 05/31/16 08/01/16 Zane Foy MD PCP - General 11/08/15 05/30/16 documented as of this encounter
--- OUTSIDE RECORDS SUMMARY | 2024-08-26 07:11 | XMS_ITS | Encounter Summary ---
Author Organization [facility] Address [address] [place] [address]. [place] [address] [place] [address] Care Team Providers Care Process Engineer Name Role Phone Zane Foy MD Primary Care Provider Zane Ruiz MD Primary Care Provider Zane Ruiz MD Primary Care Provider Donovan junior Encounter Details Date Type Department Care Team (Late Contact Info) Description 02/11/2001 Abstract [facility] [address] [place] [address] Indu [place] MD [address] [address] Social History Tobacco Use Types Packs/Day Years [...] (Late Contact Info) Description 11/06/2024 12:30 PM COMMUNITY SERVICE ORGANIZATION DIRECTOR Appointment [facility] [place] [address] Danny Steele MD [address] [phone] 11/06/2024 1:00 PM COMMUNITY SERVICE ORGANIZATION DIRECTOR Appointment [facility] [address] [facility] [address] Danny Steele MD 1414 [facility] 330 [place], [place] [phone] documented as of this encounter Visit Diagnoses Not on filedocumented in this encounter Care Teams Process Engineer Relationship Specialty Start Date End Date Zane Foy MD PCP - General 08/02/16 02/02/18 Zane Foy MD PCP - General 05/31/16 08/01/16 Zane Foy MD PCP - General 11/08/15 05/30/16 documented as of this encounter
--- OUTSIDE RECORDS SUMMARY | 2024-08-26 07:11 | XMS_ITS | Encounter Summary ---
Author Organization [facility] Address [address] [place] [address]. [place], [place] [address] [place] [address] Care Team Providers Care Environmental Control Administrator Name Role Phone Zane Foy MD Primary Care Provider Zane Ruiz MD Primary Care Provider Zane Ruiz MD Primary Care Provider Donovan junior Encounter Details Date Type Department Care Team (Late st Contact Info) Description 12/26/1998 [place] [address] , Generic ConversionMD Social History Tobacco Use [...] (Late Contact Info) Description 11/06/2024 12:30 PM BONDERITE OPERATOR Appointment [facility] [place] [address] Danny Steele MD [address] [place] [address] 11/06/2024 1:00 PM BONDERITE OPERATOR Appointment [place] [address] Danny Steele MD [address] [place] [phone] documented as of this encounter Visit Diagnoses Not on filedocumented in this encounter Care Teams Environmental Control Administrator Relationship Specialty Start Date End Date Zane Foy MD PCP - General 08/02/16 02/02/18 Zane Foy MD PCP - General 05/31/16 08/01/16 Zane Foy MD PCP - General 11/08/15 05/30/16 documented as of this encounter
--- OUTSIDE RECORDS SUMMARY | 2024-08-26 07:11 | XMS_ITS | Encounter Summary ---
Author Organization [facility] Address [address] [place] [address]. [place], [place] [address] [place] [address] Care Team Providers Care Supply Assistant Name Role Phone Zane Foy MD Primary Care Provider Zane Ruiz MD Primary Care Provider Zane Ruiz MD Primary Care Provider Donovan junior Encounter Details Date Type Department Care Team (Late st Contact Info) Description 12/21/1997 Abstract EDNA CONVERSION [place], [place] [id number] , Generic ConversionMD Social History Tobacco Use [...] (Late Contact Info) Description 11/06/2024 12:30 PM HEALTHCARE ADVISORY SERVICES MANAGER Appointment [facility] [place] [address] Danny Steele MD [address] [place] [address] 11/06/2024 1:00 PM HEALTHCARE ADVISORY SERVICES MANAGER Appointment [facility] [place] [address] Danny Steele MD [address] [place] [phone] documented as of this encounter Visit Diagnoses Not on filedocumented in this encounter Care Teams Supply Assistant Relationship Specialty Start Date End Date Zane Foy MD PCP - General 08/02/16 02/02/18 Zane Foy MD PCP - General 05/31/16 08/01/16 Zane oFy MD PCP - General 11/08/15 05/30/16 documented as of this encounter
--- OUTSIDE RECORDS SUMMARY | 2024-08-26 07:11 | XMS_ITS | Encounter Summary ---
Author Organization [facility] Address [address] [place] [address]. [place], [place] [address] [place] [address] Care Team Providers Care Photographic Machine Operator Name Role Phone Zane Foy MD Primary Care Provider Zane Ruiz MD Primary Care Provider Zane Ruiz MD Primary Care Provider Donovan junior Encounter Details Date Type Department Care Team (Late st Contact Info) Description 12/14/1996 Abstract EDNA CONVERSION ONE [place], [place] [id number] , Generic ConversionMD Social History Tobacco Use [...] (Late Contact Info) Description 11/06/2024 12:30 PM RUN BOAT OPERATOR Appointment [facility] [place] [place] [address] Danny Steele MD [address] [place] [address] 11/06/2024 1:00 PM RUN BOAT OPERATOR Appointment [facility] [address] Danny Steele MD [address] [place] [phone] documented as of this encounter Visit Diagnoses Not on filedocumented in this encounter Care Teams Photographic Machine Operator Relationship Specialty Start Date End Date Zane Foy MD PCP - General 08/02/16 02/02/18 Zane Foy MD PCP - General 05/31/16 08/01/16 Zane Foy MD PCP - General 11/08/15 05/30/16 documented as of this encounter
--- OUTSIDE RECORDS SUMMARY | 2024-08-26 07:11 | XMS_ITS | Encounter Summary ---
Author Organization [facility] Address [address] [place] [address]. [place] [address] [place] [address] Care Team Providers Care Industrial Engineering Technologist Name Role Phone Zane Foy MD Primary Care Provider Zane Ruiz MD Primary Care Provider Zane Ruiz MD Primary Care Provider Donovan junior Encounter Details Date Type Department Care Team (Late st Contact Info) Description 07/27/2004 Abstract [facility] [address] [place] [address] Zane Foy MD Social History Tobacco Use [...] (Late Contact Info) Description 11/06/2024 12:30 PM CAGE SHIFT MANAGER Appointment [facility] [place] [place] [phone] Danny Steele MD [facility] [address] [address] 11/06/2024 1:00 PM CAGE SHIFT MANAGER Appointment [facility] [place] [address] Danny Steele MD [address] [place] [address] documented as of this encounter Visit Diagnoses Not on filedocumented in this encounter Care Teams Industrial Engineering Technologist Relationship Specialty Start Date End Date Zane Foy MD PCP - General 08/02/16 02/02/18 Zane Foy MD PCP - General 05/31/16 08/01/16 Zane Foy MD PCP - General 11/08/15 05/30/16 documented as of this encounter
--- OUTSIDE RECORDS SUMMARY | 2024-08-26 07:11 | XMS_ITS | Encounter Summary ---
Author Organization [facility] Address [address] [place] [address]. [place], [place] [address] [place] [address] Care Team Providers Care Golf Club Weighter Name Role Phone Zane Foy MD Primary Care Provider Zane Ruiz MD Primary Care Provider Zane Ruiz MD Primary Care Provider Donovan junior Encounter Details Date Type Department Care Team (Late Contact Info) Description 11/28/1999 Emergency [facility] [place] [address] Indu [place] MD [address] [address] Social History Tobacco Use Types Packs/Day Years [...] (Late Contact Info) Description 11/06/2024 12:30 PM INSULATION INSTALLER Appointment [facility] Mammography [place], [place] 06[address] Danny Steele MD [address] [phone] 11/06/2024 1:00 PM INSULATION INSTALLER Appointment [facility] [address] Danny Steele MD 1414 [facility] [address] [place] [address] documented as of this encounter Visit Diagnoses Not on filedocumented in this encounter Care Teams Golf Club Weighter Relationship Specialty Start Date End Date Zane Foy MD PCP - General 08/02/16 02/02/18 Zane Foy MD PCP - General 05/31/16 08/01/16 Zane Foy MD PCP - General 11/08/15 05/30/16 documented as of this encounter
--- OUTSIDE RECORDS SUMMARY | 2024-08-26 07:11 | XMS_ITS | Encounter Summary ---
Author Organization [facility] Address [address] [place] [address]. [place] [address] [place] [address] Care Team Providers Care Extension Service Supervisor Name Role Phone Zane Foy MD Primary Care Provider Zane Ruiz MD Primary Care Provider Zane Ruiz MD Primary Care Provider Donovan junior Encounter Details Date Type Department Care Team (Late st Contact Info) Description 01/30/[address] [facility] [place] [address] Indu [place] MD [address] [address] Social History Tobacco Use Types Packs/Day Years [...] st Contact Info) Description 11/06/2024 12:30 PM FLOTATION TENDER Appointment [facility] [place], [place] [address] Danny Steele MD [address] [phone] 11/06/2024 1:00 PM FLOTATION TENDER Appointment [facility] [place] [address] Danny Steele MD 1414 [facility] 330 [place] [address] documented as of this encounter Visit Diagnoses Not on filedocumented in this encounter Care Teams Extension Service Supervisor Relationship Specialty Start Date End Date Zane Foy MD PCP - General 08/02/16 02/02/18 Zane Foy MD PCP - General 05/31/16 08/01/16 Zane Foy MD PCP - General 11/08/15 05/30/16 documented as of this encounter
--- OUTSIDE RECORDS SUMMARY | 2024-08-26 07:11 | XMS_ITS | Encounter Summary ---
Author Organization [facility] Address [address] [place] [address]. [place] [address] [place] [address] Care Team Providers Care Parks Recreation Director Name Role Phone Zane Foy MD Primary Care Provider Zane Ruiz MD Primary Care Provider Zane Ruiz MD Primary Care Provider Donovan junior Encounter Details Date Type Department Care Team (Late st Contact Info) Description 01/18/2001 Abstract [facility] [place] [address] Danny Londono MD [address] [address] Social History Tobacco Use Types Packs/Day Years [...] st Contact Info) Description 11/06/2024 12:30 PM ZONE MAINTENANCE TECHNICIAN Appointment [facility] [address] Danny Steele MD [facility] [address] [address] 11/06/2024 1:00 PM ZONE MAINTENANCE TECHNICIAN Appointment [facility] [address] Danny Steele MD [facility] [address] [phone] documented as of this encounter Visit Diagnoses Not on filedocumented in this encounter Care Teams Parks Recreation Director Relationship Specialty Start Date End Date Zane Foy MD PCP - General 08/02/16 02/02/18 Zane Foy MD PCP - General 05/31/16 08/01/16 Zane Foy MD PCP - General 11/08/15 05/30/16 documented as of this encounter
--- OUTSIDE RECORDS SUMMARY | 2024-08-26 07:11 | XMS_ITS | Encounter Summary ---
Author Organization [facility] Address [address] [place] [address]. [place] [address] [place] [address] Care Team Providers Care Catering Assistant Name Role Phone Zane Foy MD Primary Care Provider Zane Ruiz MD Primary Care Provider Zane Ruiz MD Primary Care Provider Donovan junior Encounter Details Date Type Department Care Team (Late st Contact Info) Description 09/14/2001 Abstract [facility] [address] [place] [address] Cheko García MD Social History [...] (Late Contact Info) Description 11/06/2024 12:30 PM SELLING UNDERWRITER Appointment [facility] [place], [place] [phone] Danny Steele MD [address] [place] [phone] 11/06/2024 1:00 PM SELLING UNDERWRITER Appointment [facility] [place], [place] [address] Danny Steele MD [address] [place] [phone] documented as of this encounter Visit Diagnoses Not on filedocumented in this encounter Care Teams Catering Assistant Relationship Specialty Start Date End Date Zane Foy MD PCP - General 08/02/16 02/02/18 Zane Foy MD PCP - General 05/31/16 08/01/16 Zane Foy MD PCP - General 11/08/15 05/30/16 documented as of this encounter
--- OUTSIDE RECORDS SUMMARY | 2024-08-26 07:12 | XMS_ITS | Encounter Summary ---
Author Organization [facility] Address [address] [place] [address]. [place], [place] [address] [place] [address] Care Team Providers Care Antique Furniture Reproducer Name Role Phone Zane Foy MD Primary Care Provider Zane Ruiz MD Primary Care Provider Zane Ruiz MD Primary Care Provider Donovan junior Encounter Details Date Type Department Care Team (Late st Contact Info) Description 06/08/1996 [place] [address] , Generic ConversionMD Social History Tobacco Use [...] (Late Contact Info) Description 11/06/2024 12:30 PM BED SETTER Appointment [facility] [place] [address] Danny Steele MD [address] [place] [phone] 11/06/2024 1:00 PM BED SETTER Appointment [facility] [address] Danny Steele MD [address] [place] [phone] documented as of this encounter Visit Diagnoses Not on filedocumented in this encounter Care Teams Antique Furniture Reproducer Relationship Specialty Start Date End Date Zane Foy MD PCP - General 08/02/16 02/02/18 Zane Foy MD PCP - General 05/31/16 08/01/16 Zane Foy MD PCP - General 11/08/15 05/30/16 documented as of this encounter
--- OUTSIDE RECORDS SUMMARY | 2024-08-26 07:12 | XMS_ITS | Encounter Summary ---
Author Organization [facility] Address [address] [place] [address]. [place], [place] [address] [place] [address] Care Team Providers Care Director Of Annual Giving Name Role Phone Zane Foy MD Primary Care Provider Zane Ruiz MD Primary Care Provider Zane Ruiz MD Primary Care Provider Donovan junior Encounter Details Date Type Department Care Team (Late st Contact Info) Description 08/23/1996 Abstract [facility] [place], [place] [id number] , Generic ConversionMD Social History Tobacco Use [...] (Late Contact Info) Description 11/06/2024 12:30 PM LICENSE EXAMINER Appointment [facility] [place] [address] Danny Steele MD [address] [place] [phone] 11/06/2024 1:00 PM LICENSE EXAMINER Appointment [place] [address] Danny Steele MD [address] [place] [phone] documented as of this encounter Visit Diagnoses Not on filedocumented in this encounter Care Teams Director Of Annual Giving Relationship Specialty Start Date End Date Zane Foy MD PCP - General 08/02/16 02/02/18 Zane Foy MD PCP - General 05/31/16 08/01/16 Zane Foy MD PCP - General 11/08/15 05/30/16 documented as of this encounter
--- OUTSIDE RECORDS SUMMARY | 2024-08-26 07:12 | XMS_ITS | Encounter Summary ---
Author Organization [facility] Address [address] [place] [address]. [place], [place] [address] [place] [address] Care Team Providers Care Bioinformatics Programmer Name Role Phone Zane Foy MD Primary Care Provider Zane Ruiz MD Primary Care Provider Zane Ruiz MD Primary Care Provider Donovan junior Encounter Details Date Type Department Care Team (Late st Contact Info) Description 08/15/1996 [place] [address] , Generic ConversionMD Social History Tobacco Use [...] (Late Contact Info) Description 11/06/2024 12:30 PM BREEDING MANAGER Appointment [facility] [place] [address] Danny Steele MD [address] [place] [phone] 11/06/2024 1:00 PM BREEDING MANAGER Appointment [facility] [address] Danny Steele MD [address] [place] [phone] documented as of this encounter Visit Diagnoses Not on filedocumented in this encounter Care Teams Bioinformatics Programmer Relationship Specialty Start Date End Date Zane Foy MD PCP - General 08/02/16 02/02/18 Zane Foy MD PCP - General 05/31/16 08/01/16 Zane Foy MD PCP - General 11/08/15 05/30/16 documented as of this encounter
--- OUTSIDE RECORDS SUMMARY | 2024-08-26 07:12 | XMS_ITS | Encounter Summary ---
Author Organization [facility] Address [address] [place] [address]. [place], [place] [address] [place] [address] Care Team Providers Care Corporate Financial Analyst Name Role Phone Zane Foy MD Primary Care Provider Zane Ruiz MD Primary Care Provider Zane Ruiz MD Primary Care Provider Donovan junior Encounter Details Date Type Department Care Team (Late st Contact Info) Description 09/27/1996 [place] [address] , Generic ConversionMD Social History Tobacco Use [...] (Late Contact Info) Description 11/06/2024 12:30 PM RECEPTIONIST DOCTOR'S OFFICE Appointment [facility] [place] [address] Danny Steele MD [address] [place] [phone] 11/06/2024 1:00 PM RECEPTIONIST DOCTOR'S OFFICE Appointment [facility] [address] Danny Steele MD [address] [place] [phone] documented as of this encounter Visit Diagnoses Not on filedocumented in this encounter Care Teams Corporate Financial Analyst Relationship Specialty Start Date End Date Zane Foy MD PCP - General 08/02/16 02/02/18 Zane Foy MD PCP - General 05/31/16 08/01/16 Zane Foy MD PCP - General 11/08/15 05/30/16 documented as of this encounter
--- OUTSIDE RECORDS SUMMARY | 2024-08-26 07:12 | XMS_ITS | Encounter Summary ---
Author Organization [facility] Address [address] [place] [address]. [place], [place] [address] [place] [address] Care Team Providers Care Cashier And Waiter/Waitress Name Role Phone Zane Foy MD Primary Care Provider Zane Ruiz MD Primary Care Provider Zane Ruiz MD Primary Care Provider Donovan junior Encounter Details Date Type Department Care Team (Late st Contact Info) Description 06/22/1996 [place] [address] , Generic ConversionMD Social History Tobacco Use [...] (Late Contact Info) Description 11/06/2024 12:30 PM STONEWORK TRACER Appointment [facility] [place] [address] Danny Steele MD [address] [place] [phone] 11/06/2024 1:00 PM STONEWORK TRACER Appointment [facility] [place] [address] Danny Steele MD [address] [place] [phone] documented as of this encounter Visit Diagnoses Not on filedocumented in this encounter Care Teams Cashier And Waiter/Waitress Relationship Specialty Start Date End Date Zane Foy MD PCP - General 08/02/16 02/02/18 Zane Foy MD PCP - General 05/31/16 08/01/16 Zane Foy MD PCP - General 11/08/15 05/30/16 documented as of this encounter
--- OUTSIDE RECORDS SUMMARY | 2024-08-26 07:12 | XMS_ITS | Encounter Summary ---
Author Organization [facility] Address [address] [place] [address]. [place], [place] [address] [place] [address] Care Team Providers Care Road Supervisor Of Engines Name Role Phone Zane Foy MD Primary Care Provider Zane Ruiz MD Primary Care Provider Zane Ruiz MD Primary Care Provider Donovan junior Encounter Details Date Type Department Care Team (Late st Contact Info) Description 08/16/1996 [place] [address] , Generic ConversionMD Social History Tobacco Use [...] (Late Contact Info) Description 11/06/2024 12:30 PM SALES AND MARKETING ADMINISTRATOR Appointment [facility] [place] [address] Danny Steele MD [address] [place] [phone] 11/06/2024 1:00 PM SALES AND MARKETING ADMINISTRATOR Appointment [facility] [place] [address] Danny Steele MD [address] [place] [phone] documented as of this encounter Visit Diagnoses Not on filedocumented in this encounter Care Teams Road Supervisor Of Engines Relationship Specialty Start Date End Date Zane Foy MD PCP - General 08/02/16 02/02/18 Zane Foy MD PCP - General 05/31/16 08/01/16 Zane Foy MD PCP - General 11/08/15 05/30/16 documented as of this encounter
--- OUTSIDE RECORDS SUMMARY | 2024-08-26 07:50 | XMS_ITS | Clinical Summary ---
Author Organization [facility] [facility] Address [address] [place] [phone] Phone Care Team Providers Care Telegraphic Typewriter Operator Name Role Phone Esperanza Ho MD Primary Care Provider Reji CRUZ MD, [facility] [phone] Allergies No known active allergies Medications amitriptyline (ELAVIL) 25 mg tablet Take 25 mg by mouth nightly 3 02/08/[address] (CYMBALTA) 30 mg capsule Take 30 mg by mouth daily Active Active Problems Problem Noted Date Diagnosed Date Lumbosacral radiculopathy at L5 05/19/2019 Spondylolisthesis at L4-L5 level 04/13/2019 Asymptomatic microscopic hematuria 03/22/2019 Assessment & Plan (03/22/2019 4:04 PM CDT): 3-10 rbcs seen on recent UA. Denies any urinary complaints. Patient was advised to follow up with PCP regarding this. May need further evaluation with nephrology. Spinal stenosis of lumbar region 02/28/2019 Overview (04/23/2019): Initial serologies 02/28/2019: Positive OLEG 1:80 speckled on Avise. 3-10 rbcs seen on UA MRI L-spine 03/07/2019: Disc bulging, degenerative changes and ligamentous hypertrophy are associated with severe spinal stenosis at the L4-L5 level were grade 1 spondylolisthesis is evident. Disc bulging and foraminal narrowing. Foraminal narrowing is most marked on the left at the L5-S1 level associated with asymmetric disc bulging the left at this level X-ray 03/13/2019: CXR: Negative; L spine: Narrowing of the L4-L5 disc space; SI joints: Negative Primary complaint today is lower back/posterior hip pain with radicular symptoms, primarily L sided. Symptoms improve when leaning forward and worse when sitting upright. Decreased left patellar and Achilles tendon reflex were noted. On lyrica, tramadol in the past (unsure of why stopped) cymbalta no benefit Assessment & Plan (04/23/2019 4:30 PM CDT): Since last visit, patient has seen Dr. Carrero, orthopedics, in regards to this. Is scheduled for epidural injection next week, per her report. Considering surgical intervention if symptoms not improved with injections. Will have patient continue to follow with Dr. Carrero for this issue. Can have patient follow up as needed at this point or if any new or worsening symptoms arise. Seen with Dr. Mendoza. Of note, at this point, do believe that the majority of her symptoms are due to her spinal stenosis. Do not see much clinical evidence to support fibromyalgia at this time. Assessment & Plan (03/22/2019 4:03 PM CDT): Primary complaint continues to be lower back/posterior hip pain with radicular symptoms, primarily left-sided. Symptoms do improve with leaning forward and worsened when symptoms sitting upright. Decreased left patellar and Achilles tendon reflex noted. MRI L-spine 03/07/2019 displayed disc bulging, tenderness changes, as well as the ligamentous hypertrophy associated with severe spinal stenosis at the L4-L5 level with grade 1 spondylolisthesis. Disc bulging and foraminal narrowing most marked on the left at the L5-S1 level. Symptoms and MRI findings do appear compatible with spinal stenosis, which is likely contributing to the majority of her complaints. Given the degree of spinal stenosis, will refer to Dr. Goff, orthopedics for further evaluation and management. Fu 4 weeks. Sooner if needed. Seen with Dr. Mendoza. Assessment & Plan (02/28/2019 4:26 PM CDT): Primary complaint today is lower back/posterior hip pain with radicular symptoms, primarily L sided. Symptoms improve when leaning forward and worse when sitting upright. Decreased left patellar and Achilles tendon reflex were noted. Symptoms are concerning for possible spinal stenosis vs sciatica. Secondarily, patient does complain of some generalized myalgias/arthralgias, which I do suspect she does have a degree of fibromyalgia contributing to these symptoms. Would like to further evaluate with appropriate serologies, radiographs, as well as a L spine MRI. Follow-up 2 weeks. Sooner if needed. Seen with Dr. Mendoza. Surgical History Surgery Date Site/Laterality Comments BREAST BIOPSY Left benign excisional biopsy per patient. 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 Not on file Not o n file Obstetrics History Para Term AB IAB SAB Ectopic Multiple Livin g Live Births 2 2 2 Date Outcome GA Total Labor Labor/2nd/3rd Weight Sex Type Anes PTL Shikha A1 A5 Name Clin Term Term Last Filed Vital Signs Vital Sign Reading Time Taken Comments Blood Pressure 142/78 06/12/2019 2:48 PM CDT Pulse 99 04/23/2019 2:33 PM CDT Temperature - - Respiratory Rate - - Oxygen Saturation - - Inhaled Oxygen Concentration - - Weight 94.3 kg (208 lb) 06/12/2019 2:48 PM CDT Height 167.6 cm (5' 6 ) 06/12/2019 2:48 PM CDT Body Mass Index 33.57 06/12/2019 2:48 PM CDT Plan of Treatment Health Maintenance Due Date Last Done Comments Cervical Cancer Screening 1959 Colon Cancer Screening-Colonoscopy 1959 Depression Screening 1959 Fall Risk Assessment 1959 Osteoporosis Screening-Bone Density Scan 1959 DTaP/Tdap/Td Vaccine (1 - Tdap) 1970 Hepatitis B Screening 1977 Zoster Vaccine (1 of 2) 2009 Breast Cancer Screening-Mammogram 11/16/2022 11/16/2021, 08/08/2020, 06/26/2019, Additional history exists Pneumococcal vaccine 65+ (1 of 1 - PCV) 2024 Well Visit 65+ 2024 Covid-19 Vaccine (3 - 2023-2 5 season) 2024 12/26/2020, 11/28/2020 Influenza Vaccine (#1) 2024 Hepatitis C Screening Completed 02/28/2019 Procedures Procedure Name Priority Date/Time Associated Diagnosis Comments SCREENING MAMMOGRAM BILATERAL W [facility] Schedule Routine, Read Routine (OP Routine) 11/16/2021 3:03 PM CDT Screening breast examination HEPATITIS C ANTIBODY Routine 02/28/2019 12:32 PM CDT from Last 3 Months or Most Recently Relevant to Health Maintenance Results * Screening Mammogram Bilateral [facility] [place] (11/16/2021 3:03 PM CDT) Anatomical Region Laterality Modality Breast Bilateral Mammography Impressions 11/16/2021 3:34 PM CDT BI-RADS?? ATLAS category (overall): 1 - Negative There is no mammographic evidence of malignancy. A 1 year screening mammogram is recommended. The patient has been or will be contacted. We recommend annual screening mammography for women at average risk of breast cancer beginning at age 40, based on guidelines of the [employer] (ACR Practice Parameter for the Performance of Screening and Diagnostic Mammography) and [place] [employer]. For women with and elevated risk of breast cancer, please refer to the ACR Practice Parameter for specific screening recommendations. The patient will be entered into a reminder system with a target due date of 1 year for her next screening exam. Narrative 11/16/2021 3:34 PM CDT Screening Mammogram Bilateral [place]: 11/16/21 The study was acquired using full field digital technology and interpreted from soft copy. 2D digital mammographic views, as well as 3D digital tomosynthesis were performed in the CC and MLO projections. CLINICAL: ??Screening breast examination ??No relevant medical history has been documented for this patient. ??History of breast cancer in Neg Hx. COMPARISONS: 08/08/2020 Screening Mammogram Bilateral [place] 06/26/2019 Screening Mammogram Bilateral [facility] [place] 05/29/2018 Screening Mammogram Bilateral [facility] [place] 04/04/2017 Screening Mammogram Bilateral [facility] [place] 01/19/2016 Screening Mammogram Bilateral [facility] [place] BREAST TISSUE: The breasts have scattered areas of fibroglandular density. FINDINGS: No suspicious masses, suspicious calcifications, or other suspicious findings are seen within either breast. There has been no suspicious change. Procedure Note Silver Dias MD - 11/16/2021 Screening Mammogram Bilateral [place]: 11/16/21 The study was acquired using full field digital technology and interpretedfrom soft copy. 2D digital mammographic views, as well as 3D digitaltomosynthesis were performed in the CC and MLO projections. CLINICAL: Screening breast examination No relevant medical history hasbeen documented for this patient. History of breast cancer in Neg Hx. COMPARISONS: 08/08/2020 Screening Mammogram Bilateral [place] 06/26/2019 Screening Mammogram Bilateral [facility] [place] 05/29/2018 Screening Mammogram Bilateral [facility] [place] 04/04/2017 Screening Mammogram Bilateral [facility] [place] 01/19/2016 Screening Mammogram Bilateral [facility] [place] BREAST TISSUE: The breasts have scattered areas of fibroglandular density. FINDINGS: No suspicious masses, suspicious calcifications, or othersuspicious findings are seen within either breast. There has been nosuspicious change. IMPRESSION: BI-RADS?? ATLAS category (overall): 1 - Negative There is no mammographic evidence of malignancy. A 1 year screeningmammogram is recommended. The patient has been or will be contacted. We recommend annual screening mammography for women at average risk ofbreast cancer beginning at age 40, based on guidelines of the AmericanCollege of Radiology (ACR Practice Parameter for the Performance ofScreening and Diagnostic Mammography) and [place] [employer] ofObstetricians and Gynecologists. For women with and elevated risk ofbreast cancer, please refer to the ACR Practice Parameter for specificscreening recommendations. The patient will be entered into a reminder system with a target due dateof 1 year for her next screening exam. us Judson Abreu MD IMG MAMMO PROCEDURES F inal Result * Hepatitis C antibody (02/28/2019 12:32 PM CDT) Hep C Ab NON-REACT MARGARITA NON-REACT MARGARITA [facility] SIGNAL TO CUT-OFF 0.01 <1.00 [facility] [place] Comment: HCV antibody was non-reactive. There is no laboratory evidence of HCV infection. In most cases, no further action is required. However, if recent HCV exposure is suspected, a test for HCV RNA (test code 13660) is suggested. For additional information please refer to http://education.[employer]/faq/RGB86t5 (This link is being provided for informational/ educational purposes only.) 02/28/2019 12:3 2 PM CDT 02/28/2019 12:33 PM CDT Narrative Resulting Agency Comment Performing Organization Information: ?Site ID: [place] ?Name: [email or web address] ?Address: [address] [place] [id number] ?Director: Julien Neville D.O., MPH [facility] - GENE RAL ORDERABLES Final Result Performing Organization Address City/State/[facility] Co de Phone Number [facility] [place] from Last 3 Months or Most Recently Relevant to Health Maintenance Insurance [facility] [employer] [employer] Care Teams Telegraphic Typewriter Operator Relationship Specialty Start Date End Date Esperanza Ho MD [address] [place] [address] PCP - General Family Medicine 02/01/19 [place] Mendoza III, MD [address] [place] [address] Consulting Physician Rheumatology 02/01/19
--- OUTSIDE RECORDS SUMMARY | 2024-08-26 07:51 | XMS_ITS | Encounter Summary ---
Author Organization [facility] Healthcare Address [address] [place] [address] Care Team Providers Care Dip Dyer Name Role Phone Esperanza Ho MD Primary Care Provider [facility]ji CRUZ [facility], [facility] [phone] Encounter Details Date Type Department Care Team (Late st Contact Info) Description 08/08/2020 2:26 PM PRINCIPAL DATA ARCHITECT Hospital Encounter [facility] OP INTERIM Judson Abreu MD [address] [place] [address] Social History Tobacco Use Types Packs/Day Years Used Date Smoking Tobacco: Never Assessed Comments Unknown Sex and Gender Information Value Date Recorded Sex Assigned at Not on file Legal Sex Female 7:47 PM PRINCIPAL DATA ARCHITECT Gender Identity Not on file Sexual Orientation Not on file 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 Not on file Not o n file documented as of this encounter Medications at Time of Discharge amitriptyline (ELAVIL) 25 mg tablet Take 25 mg by mouth nightly 3 02/08/[address] (CYMBALTA) 30 mg capsule Take 30 mg by mouth daily documented as of this encounter Plan of Treatment Not on file documented as of this encounter Procedures Procedure Name Priority Date/Time Associated Diagnosis Comments SCREENING MAMMOGRAM BILATERAL W LATRELL 08/08/2020 2:28 PM PRINCIPAL DATA ARCHITECT GENERAL RADIOLOGY REPORT 08/08/2020 12:00 AM PRINCIPAL DATA ARCHITECT documented in this encounter Results * Screening Mammogram Bilateral W Latrell (08/08/2020 2:28 PM PRINCIPAL DATA ARCHITECT) Anatomical Region Laterality Modality Breast Bilateral Mammography 08/08/2020 2:32 PM PRINCIPAL DATA ARCHITECT Narrative 08/08/2020 3:58 PM PRINCIPAL DATA ARCHITECT Patient Name: SARAY WHITTEN ?Ordering Dr: Judson Abreu MD ?? D.O.B: 1960 ? Exam Date: 08/08/20 ?? 1428 ?? Age: 60 ?Sex: Female ? MR#: [id number] ?? Loc: ? RADIOLOGY REPORT ?? Order #[id number] ?? [facility] ? Gissel Bilat Screening 3D ? Signed ?- MG ?? BILATERAL DIGITAL SCREENING MAMMOGRAM 3D/2D WITH MEDIOLATERAL OBLIQUE ?? CRANIOCAUDAL: 08/08/2020 ?? The study was acquired using full field digital technology and interpreted from ?soft copy. ?2D digital mammographic views, as well as 3D digital tomosynthesis were ?? performed in the CC and MLO projections. ? CLINICAL: Routine mammogram. Denies any problems today. No personal history of ?? breast cancer. No family history of breast cancer. ? COMPARISONS: Comparison is made to exams dated: ??06/26/2019 mammogram, ?? 05/29/2018 mammogram - [facility], and 04/04/2017 mammogram - ?? [facility]. ? BREAST TISSUE: There are scattered areas of fibroglandular density. ? FINDINGS: No significant masses, calcifications, or other findings are seen in ?? either breast. ? There has been no significant interval change. ? IMPRESSION: BI-RAD 1 ??NEGATIVE ?? There is no mammographic evidence of malignancy. A 1 year screening mammogram ?? is recommended. ? The patient has been or will be contacted. ? We recommend annual screening mammography for women at average risk of breast ?? cancer beginning at age 40, based on guidelines of the [place] [employer] ?? Radiology (ACR Practice Parameter for the Performance of Screening and ?? Diagnostic Mammography) and [place] [employer] of Obstetricians and ?? Gynecologists. For women with an elevated risk of breast cancer, please refer ?? to the ACR Practice Parameter for specific screening recommendations. ? The patient will be entered into a reminder system with a target due date of 1 ?? year for her next screening exam. ? Electronically signed by: ?Cortes Jackson M.D. ? /gemma:08/08/2020 15:58:33 ? Ed Special Education Teacher: Opal Ramires, [facility] ?? letter sent: Normal Exam ? Reading location: ?? BI-RADS: 1 Negative ? REPORT ELECTRONICALLY SIGNED IN OTHER VENDOR SYSTEM ?? Resulting Agency Comment O Procedure Note Cortes Jackson MD - 08/08/2020 Patient Name: SARAY WHITTEN Dr: Judson Abreu MD D.O.B: 1960 Exam Date: 08/08/20 1428 Age: 60 Sex: Female MR#: [id number] Loc: RADIOLOGY REPORT Order #[id number] [facility] Gissel Bilat Screening 3D Signed - MG BILATERAL DIGITAL SCREENING MAMMOGRAM 3D/2D WITH MEDIOLATERAL OBLIQUE CRANIOCAUDAL: 08/08/2020 The study was acquired using full field digital technology andinterpreted from soft copy. 2D digital mammographic views, as well as 3D digital tomosynthesis were performed in the CC and MLO projections. CLINICAL: Routine mammogram. Denies any problems today. No personalhistory of breast cancer. No family history of breast cancer. COMPARISONS: Comparison is made to exams dated: 06/26/2019 mammogram, 05/29/2018 mammogram - [facility], and 04/04/2017mammogram - [facility]. BREAST TISSUE: There are scattered areas of fibroglandular density. FINDINGS: No significant masses, calcifications, or other findings areseen in either breast. There has been no significant interval change. IMPRESSION: BI-RAD 1 NEGATIVE There is no mammographic evidence of malignancy. A 1 year screeningmammogram is recommended. The patient has been or will be contacted. We recommend annual screening mammography for women at average risk ofbreast cancer beginning at age 40, based on guidelines of the [place] [employer] (ACR Practice Parameter for the Performance of Screening and Diagnostic Mammography) and [place] [employer] of Obstetricians and Gynecologists. For women with an elevated risk of breast cancer, pleaserefer to the ACR Practice Parameter for specific screening recommendations. The patient will be entered into a reminder system with a target due dateof 1 year for her next screening exam. Electronically signed by: Cortes Jackson M.D., md/gemma:08/08/2020 15:58:33 Ed Special Education Teacher: Opal Ramires, [facility] letter sent: Normal Exam Reading location: BI-RADS: 1 Negative REPORT ELECTRONICALLY SIGNED IN OTHER VENDOR SYSTEM Judson Abreu MD IMG MAMMO PROCEDURES F inal Result * GENERAL RADIOLOGY REPORT (08/08/2020 12:00 AM PRINCIPAL DATA ARCHITECT) Anatomical Region Laterality Modality Radiographic Mayad ging Narrative 08/08/2020 12:00 AM PRINCIPAL DATA ARCHITECT Ordered by an unspecified provider. Historical Provider MD MAGANA XR PROCEDURES Final R esult documented in this encounter Visit Diagnoses Not on filedocumented in this encounter Care Teams Dip Dyer Relationship Specialty Start Date End Date Esperanza Ho MD [address] [place] [address] PCP - General Family Medicine 02/01/19 [place] Mendoza III, MD [address] [place] [address] Consulting Physician Rheumatology 02/01/19 documented as of this encounter
--- OUTSIDE RECORDS SUMMARY | 2024-08-26 07:51 | XMS_ITS | Referral Summary ---
Author Organization [facility] [address] [facility] [facility] Address [address] [place] [address] Phone Care Team Providers Care Classifier Operator Name Role Phone Esperanza Ho MD Primary Care Provider Reji CRUZ MD, [facility] [phone] Allergies No known active allergies Medications amitriptyline [...] Sooner if needed. Seen with Dr. Mendoza. 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 For women with and elevated risk ofbreast cancer, please refer to the ACR Practice Parameter for specificscreening recommendations. The patient will be entered into a reminder system with a target due dateof 1 year for her next screening exam. Judson Abreu MD IMG MAMMO PROCEDURES F [...] a test for HCV RNA (test code 11806) is suggested. For additional information please refer to http://education.Provigent/faq/JFV50x3 (This link is being provided for informational/ educational purposes only.) 02/28/2019 12:3 2 PM CDT 02/28/2019 12:33 PM CDT Narrative Resulting Agency Comment Performing Organization Information: ?Site ID: [id number] ?Name: [facility] ?Address: [address] [id number] ?Director: Julien Neville D.O., MPH Bernard [facility] MICROBIOLOGY - GENE RAL ORDERABLES Final Result [facility] [place] [facility] Newman from Last 3 Months or Most Recently Relevant to Health Maintenance Insurance [facility] Address: [place] [address] [facility] Address: [place] [address] [facility] Address: [address] [place] [address], [place] [address] Care Teams Classifier Operator Relationship Specialty Start Date End Date Esperanza Ho MD [address] [facility] [facility] [address] [place] [address] PCP - General Family Medicine 02/01/19 [place] Mendoza III, MD [address] [facility] [address] [place] [address] Consulting Physician Rheumatology 02/01/19
--- OUTSIDE RECORDS SUMMARY | 2024-08-26 07:51 | XMS_ITS | Encounter Summary ---
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 D.O.B: 1960 ? Exam Date: 06/26/19 ?? 1435 ?? Age: 59 ?Sex: Female ? MR#: [id number] ?? Loc: ? RADIOLOGY REPORT ?? Order #[id number] ?? [facility] ? Gissel Bilat Screening 3D ? Signed ?- MG ?? BILATERAL DIGITAL SCREENING MAMMOGRAM 3D/2D WITH MEDIOLATERAL OBLIQUE ?? CRANIOCAUDAL: 06/26/2019 ?? The study was acquired using full field digital technology and interpreted from ?soft copy. ?2D digital mammographic views, as well as 3D digital tomosynthesis were ?? performed in the CC and MLO projections. ? CLINICAL: Routine mammogram. Denies any problems today. No personal history of ?? breast cancer. No family history of breast cancer. ? COMPARISONS: Comparison is made to exams dated: ??05/29/2018 mammogram - [facility] ?[facility], 04/04/2017 mammogram - [facility], and 01/19/2016 ?mammogram - [facility]. ? BREAST TISSUE: There are scattered areas [...] age 40, based on guidelines of the [place] [employer] ?? Radiology (ACR Practice Parameter for the Performance of Screening and ?? Diagnostic Mammography) and [place] [employer] of Obstetricians and ?? Gynecologists. For women with an elevated risk of breast cancer, please refer ?? to the ACR Practice Parameter for specific screening recommendations. ? The patient will be entered into a reminder system with a target due date of 1 ?? year for her next screening exam. ? Electronically signed by: ?Cortes Jackson M.D. ? /gemma:06/26/2019 15:00:08 ? [employer] Sales: Opal Ramires, [facility] ?? letter sent: Normal Exam ? Reading location: ?? BI-RADS: 1 Negative ? REPORT ELECTRONICALLY SIGNED IN OTHER VENDOR SYSTEM ?? Resulting Agency Comment O Procedure Note Cortes Jackson MD - 06/26/2019 Patient Name: SARAY WHITTEN Dr: Judson Abreu MD D.O.B: 1960 Exam Date: 06/26/19 1435 Age: 59 Sex: Female MR#: [id number] Loc: RADIOLOGY REPORT Order #[id number] [facility] Gissel Bilat Screening 3D Signed - MG BILATERAL DIGITAL SCREENING MAMMOGRAM 3D/2D WITH MEDIOLATERAL OBLIQUE CRANIOCAUDAL: 06/26/2019 The study was acquired using full field digital technology andinterpreted from soft copy. 2D digital mammographic views, as well as 3D digital tomosynthesis were performed in the CC and MLO projections. CLINICAL: Routine mammogram. Denies any problems today. No personalhistory of breast cancer. No family history of breast cancer. COMPARISONS: Comparison is made to exams dated: [facility], 04/04/2017 mammogram - [facility], and01/19/2016 mammogram - [facility]. BREAST TISSUE: There are scattered areas of [...] age 40, based on guidelines of the [place] [employer] (ACR Practice Parameter for the Performance of Screening and Diagnostic Mammography) and [place] [employer] of Obstetricians and Gynecologists. For women with an elevated risk of breast cancer, pleaserefer to the ACR Practice Parameter for specific screening recommendations. The patient will be entered into a reminder system with a target due dateof 1 year for her next screening exam. Electronically signed by: Cortes Jackson M.D., md/gemma:06/26/2019 15:00:08 [employer] Sales: Opla Ramires [facility] letter sent: Normal Exam Reading location: BI-RADS: 1 Negative REPORT ELECTRONICALLY SIGNED IN OTHER VENDOR SYSTEM Judson Abreu MD IMG MAMMO PROCEDURES F inal Result * GENERAL RADIOLOGY REPORT (06/26/2019 12:00 AM CDT) Anatomical Region Laterality Modality Radiographic Mayda ging Narrative 06/26/2019 12:00 AM CDT Ordered by an unspecified provider. Historical Provider MD MAGANA XR PROCEDURES Final R esult documented in this encounter Visit Diagnoses Not on filedocumented in this encounter Care Teams Tax Auditor Relationship Specialty Start Date End Date Esperanza Ho MD [address] [place] [address] PCP - General Family Medicine 02/01/19 [place] Mendoza III, MD [address] [place] [address] Consulting Physician Rheumatology 02/01/19 documented as of this encounter
--- OUTSIDE RECORDS SUMMARY | 2024-08-26 07:51 | XMS_ITS | Encounter Summary ---
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 Gender Identity Not on file Sexual Orientation Not on file 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
--- OUTSIDE RECORDS SUMMARY | 2024-08-26 07:51 | XMS_ITS | Encounter Summary ---
Author Organization [facility] Healthcare Address [address] [place] [address] Care Team Providers Care International Project Engineer Name Role Phone Esperanza Ho MD Primary Care Provider Reji CRUZ MD, [facility] [phone] Reason for Referral * Diagnostic Imaging (Routine) - Closed Specialty Diagnoses / Procedures Referred By Amy amaro Referred To Contact Diagnoses Screening breast examination Procedures Screening Mammogram Bilateral W Judson Le MD [address] [address] Phone: tel: fax: [address] [phone] Referral ID Status Reason Start Date Expiration Date Visits Re quested Visits Authorized [id number] Closed 06/23/2021 07/23/2022 1 1 Reason for Visit * Diagnostic Imaging (Routine) - Closed Specialty Diagnoses / Procedures Referred By Amy amaro Referred To Contact Diagnoses Screening breast examination Procedures Screening Mammogram Bilateral W Judson Le MD [address] [address] Phone: tel: fax: [address] [phone] Referral ID Status Reason Start Date Expiration Date Visits Re quested Visits Authorized [id number] Closed 06/23/2021 07/23/2022 1 1 Encounter Details Date Type Department Care Team (Latest Contact Info) Description 11/16/2021 2:27 PM CDT - 11/16/2021 11:59 PM CDT Hospital Encounter [facility] Breast Imaging [address] [place] [address] Screening breast examination Discharge Disposition: Discharge to home or self care Social History Tobacco Use Types Packs/Day Years Used Date Smoking Tobacco: Never Assessed Comments No Sex and Gender Information Value Date Recorded Sex Assigned at Not on file 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 Gender Identity Not on file Sexual Orientation [...] mouth daily documented as of this encounter Discharge Disposition Disposition Code Departure Means Destination Discharge to home or self care documented in this encounter Plan of Treatment Not on file documented as of this encounter Procedures Procedure Name Priority Date/Time Associated Diagnosis Comments SCREENING MAMMOGRAM BILATERAL W LATRELL Schedule Routine, Read Routine (OP Routine) 11/16/2021 3:03 PM CDT Screening breast examination documented in this encounter Results * Screening [...] age 40, based on guidelines of the [place] [employer] (ACR Practice Parameter for the Performance of Screening and Diagnostic Mammography) and [place] [employer]etricians and Gynecologists. For women [...] the Performance ofScreening and Diagnostic Mammography) and [place] [employer] ofObstetricians and Gynecologists. For women with and elevated risk ofbreast cancer, please refer to the ACR Practice Parameter for specificscreening recommendations. The patient will be entered into a reminder system with a target due dateof 1 year for her next screening exam. Judson Abreu MD IMG MAMMO PROCEDURES F inal Result documented in this encounter Visit Diagnoses Diagnosis Screening breast examination Other screening breast examination documented in this encounter Care Teams International Project Engineer Relationship Specialty Start Date End Date Esperanza Ho MD [address] [place] [address] PCP - General Family Medicine 02/01/19 [place] Mendoza III, MD [address] [facility] [address] [place] [address] Consulting Physician Rheumatology 02/01/19 documented as of this encounter
--- OUTSIDE RECORDS SUMMARY | 2024-08-26 07:52 | XMS_ITS | Encounter Summary ---
Author Organization [facility] Facility Care Team Providers Care Developer Prover Mechanical Name Role Phone Esperanza Ho MD Primary Care Provider Reji CRUZ MD, John J. 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
--- OUTSIDE RECORDS SUMMARY | 2024-08-26 07:52 | XMS_ITS | Encounter Summary ---
Author Organization [facility] Address [address] [place] [address] Phone Care Team Providers Care Licensed Mortgage Loan Officer Name Role Phone Esperanza Ho MD Primary Care Provider Reji CRUZ MD, [place] [facility] [phone] Reason for Visit * Reason Onset Date Comments Handicap Parking Placard 05/01/2019 Encounter Details Date Type Department Care Team (Late st Contact Info) Description 05/01/2019 Telephone [facility] [address] [place] [address] Johny Diaz Handicap Parking Placard Social History Tobacco Use Types Packs/Day Years Used Date Smoking Tobacco: Never Assessed Comments Unknown Sex and Gender Information Value Date Recorded Sex Assigned at Not on file Legal Sex Female 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 CB# [phone]. Parking placard form filled out by Dr. Mendoza, scanned and mailed to pt. Pt informed. documented in this encounter Plan of Treatment Not on file documented as of this encounter Visit Diagnoses Not on filedocumented in this encounter Care Teams Licensed Mortgage Loan Officer Relationship Specialty Start Date End Date Esperanza Ho MD [address] [place] [address] PCP - General Family Medicine 02/01/19 [place] Mendoza III, MD [address] [facility] [address] [place] [address] Consulting Physician Rheumatology 02/01/19 documented as of this encounter
--- OUTSIDE RECORDS SUMMARY | 2024-08-26 07:52 | XMS_ITS | Encounter Summary ---
Author Organization [facility] Care Team Providers Care Pullman Clerk Name Role Phone Esperanza Ho MD Primary Care Provider Reji CRUZ MD, John J. 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
--- OUTSIDE RECORDS SUMMARY | 2024-08-26 07:52 | XMS_ITS | Encounter Summary ---
Author Organization [facility] Address [address] [place] [address] Phone Care Team Providers Care Medical Psychotherapist Name Role Phone Esperanza Ho MD Primary Care Provider Reji CRUZ MD, [place] [facility] [phone] Reason for Visit * Reason Comments Joint Pain Encounter Details Date Type Department Care Team (Late st Contact Info) Description 03/22/2019 3:00 PM CDT Office Visit [facility] [address] [address] Bernard Crandall PA [address] [place] [address] Spinal stenosis of lumbar region, unspecified whether neurogenic claudication present (Primary Dx); Asymptomatic microscopic hematuria Social History Tobacco Use Types Packs/Day Years Used Date Smoking Tobacco: Never Assessed Comments Unknown Sex and Gender Information Value Date Recorded Sex Assigned at Not on file Legal Sex Female 7: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 female. Chief Complaint Joint Pain HPI C2: Patient presents for c2 follow up visit. Denies much change in symptoms since last visit. Initial HPI: Patient here for evaluation of recent diagnosis of fibromyalgia. Biggest complaint at today's visit is pain in the lower back, posterior hips, bilateral lateral hips with radiation of symptoms down the bilateral legs at times. Notes cold sensation/tingling on the bilateral distal lowerextremities and into the feet at times. Did have prior lumbar spine x-rays which displayed degenerative arthritis, per patient report. Symptoms improve when leaning forward and worsen when standing upright. Went to PT in 2016 for lower back symptoms, although denies any benefit. Patient also notes cramping in the bilateral hands and feet intermittently. Denies much pain or stiffness in the hands/feet. Does secondarily complain of some generalized myalgias/arthralgias. Patient does note a prior diagnosis of sarcoidosis in 1994, which patient was placed on prednisone for 1 year. Notes a cold sensation in the fingers at times, although denies any color changes. Dry mouth with mild dry eyes at times. Does have some sharp pains in the chest intermittently, which do occur with the present. Has been evaluated by Cardiology and pulmonology with stress test, echocardiogram, EKG. Everything looked okay per patient report. Denies rashes, photosensitivity, raynauds, oral ulcers, eye pain or redness, cough or dyspnea. Medical hx: DDD; sarcoidosis, Denies other heart, lung, liver, thyroid, and/or kidney issues. Denies hx of gout, blood clots, transfusions, or hepatitis. 2 children with 0 miscarriages. Denies IBD or psoriasis. Family hx: mother: RA Review of Systems Constitutional: positive for fatigue. Negative for chills and fever. HENT: Negative for congestion and mouth sores. Respiratory: Negative for cough and shortness of breath. Cardiovascular: Negative for chest pain. Gastrointestinal: Negative for abdominal pain, diarrhea, nausea and vomiting. Musculoskeletal: positive for arthralgias. Negative for myalgias. Skin: Negative for rash. Physical Exam Constitutional: oriented to person, place, and time. appears well-developed and well-nourished. HENT: Head: Normocephalic. Mouth/Throat: Oropharynx is clear and moist. Eyes: Conjunctivae are normal. Pupils are equal, round, and reactive to light. Cardiovascular: Normal rate, regular rhythm and normal heart sounds. No murmur heard. Pulmonary/Chest: Effort normal and breath sounds normal. no wheezes. no rales. Musculoskeletal: no obvious peripheral synovitis; few FM tenderpoints; full rom all ext c 5/5 strength; 100% fist pedro; service center manager intact; Lymphadenopathy: no cervical adenopathy. Neurological: alert and oriented to person, place, and time. Decreased patellar/achilles reflex L side; Skin: Skin is warm and dry. No rash noted. Psychiatric: normal mood and affect. speech is normal and behavior is normal. Cognition and memory are normal. Assessment/Plan Diagnoses and all orders for this visit: Spinal stenosis of lumbar region, unspecified whether neurogenic claudication present (Primary) Assessment & Plan: Primary complaint continues to be lower back/posterior [...] MRI findings do appear compatible with spinal stenosis,which is likely contributing to the majority of her complaints. Given the degree of spinal stenosis, will refer to Dr. Goff, orthopedics for further evaluation and management. Fu 4 weeks. Sooner ifneeded. Seen with Dr. Mendoza. Orders: - Ambulatory referral to Orthopedic Surgery; Future - Ambulatory referral order to Physical Therapy -; Future Asymptomatic microscopic hematuria Assessment & Plan: 3-10 rbcs seen on recent UA. Denies any urinary complaints. Patient was advised to follow up with PCP regarding this. May need further evaluation with nephrology. Bernard Crandall PA-C dictating using fluency direct. Helmet Hat Puncher variances may occur. Cosigned by [place] Mendoza III, MD at 03/22/2019 5:32 PM CDT documented in this encounter Miscellaneous Notes * Assessment & Plan Note - Bernard Crandall PA - 03/22/2019 4:03 PM CDT Associated Problem(s): Asymptomatic microscopic hematuria 3-10 rbcs seen on recent UA. Denies any urinary complaints. Patient was advised to follow up with PCP regarding this. May need further evaluation with nephrology. * Assessment & Plan Note - Bernard Crandall PA - 03/22/2019 3:59 PM CDT Associated Problem(s): Spinal stenosis of lumbar region Primary complaint continues to be lower back/posterior [...] MRI findings do appear compatible with spinal stenosis,which is likely contributing to the majority of her complaints. Given the degree of spinal stenosis, will refer to Dr. Goff, orthopedics for further evaluation and management. Fu 4 weeks. Sooner ifneeded. Seen with Dr. Mendoza. documented in this encounter Plan of Treatment Not on file documented as of this encounter Visit Diagnoses Diagnosis Spinal stenosis of lumbar region, unspecified whether neurogenic claudication present- Primary Asymptomatic microscopic hematuria documented in this encounter Care Teams Medical Psychotherapist Relationship Specialty Start Date End Date Esperanza Ho MD [address] [place] [address] PCP - General Family Medicine 02/01/19 [place] Mendoza III, MD [address] [address] Consulting Physician Rheumatology 02/01/19 documented as of this encounter
--- OUTSIDE RECORDS SUMMARY | 2024-08-26 07:52 | XMS_ITS | Encounter Summary ---
Author Organization [facility] Address [address] [place] [address] Phone Care Team Providers Care Tank Washer Name Role Phone Esperanza Ho MD Primary Care Provider Reji CRUZ MD, [place] [facility] [phone] Reason for Visit * Reason Onset Date Comments Maged Mackenzie 03/28/2019 Encounter Details Date Type Department Care Team (Late st Contact Info) Description 03/28/[address] [address] Johny Diaz Social History Tobacco Use Types Packs/Day Years Used Date Smoking Tobacco: Never Assessed Comments Unknown Sex and Gender Information Value Date Recorded Sex Assigned at Not on file 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 Ptsays there were 2 tests they won't cover stating not suitable for pts condition. Received fax of bill. Called maged, spoke to Concha. Test code R76.8 added and bill resubmitted. Pt informed. documented in this encounter Plan of Treatment Not on file documented as of this encounter Visit Diagnoses Not on filedocumented in this encounter Care Teams Tank Washer Relationship Specialty Start Date End Date Esperanza Ho MD [address] [place] [address] PCP - General Family Medicine 02/01/19 [place] Mendoza III, MD [address] [facility] [address] [place] [address] Consulting Physician Rheumatology 02/01/19 documented as of this encounter
--- OUTSIDE RECORDS SUMMARY | 2024-08-26 07:52 | XMS_ITS | Encounter Summary ---
Author Organization [facility] Address [address] [place] [address] Phone Care Team Providers Care Dowel Sticker Operator Name Role Phone Esperanza Ho MD Primary Care Provider Reji CRUZ MD, [place] [facility] [phone] Encounter Details Date Type Department Care Team (Late st Contact Info) Description 03/12/2019 Orders Only [facility] [address] [address] Bernard Crandall PA [address] [place] [address] Social History Tobacco Use Types Packs/Day Years Used Date Smoking Tobacco: Never Assessed Comments Unknown Sex and Gender Information Value Date Recorded Sex Assigned at Not on file Legal 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 Female 7: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 Gender Identity Not on file Sexual Orientation Not on file documented as of this encounter Plan of Treatment Not on file documented as of this encounter Procedures Procedure Name Priority Date/Time Associated Diagnosis Comments SCAN - RADIOLOGY/IMAGING 03/12/2019 3:01 PM CDT documented in this encounter Results * SCAN - RADIOLOGY/IMAGING (03/12/2019 3:01 PM CDT) Anatomical Region Laterality Modality Other us Bernard PRIETO Final R esult documented in this encounter Visit Diagnoses Not on filedocumented in this encounter Care Teams Dowel Sticker Operator Relationship Specialty Start Date End Date Esperanza Ho MD [address] [place] [address] PCP - General Family Medicine 02/01/19 [place] Mendoza III, MD [address] [facility] [address] [place] [address] Consulting Physician Rheumatology 02/01/19 documented as of this encounter
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
--- OUTSIDE RECORDS SUMMARY | 2024-08-26 07:52 | XMS_ITS | Encounter Summary ---
Author Organization [facility] Care Team Providers Care County Commissioner Name Role Phone Esperanza Ho MD Primary Care Provider Reji CRUZ MD, John J. 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
--- OUTSIDE RECORDS SUMMARY | 2024-08-26 07:52 | XMS_ITS | Encounter Summary ---
Author Organization [facility] Address [address] [place] [address] Phone Care Team Providers Care Medical Assistant Name Role Phone Esperanza Ho MD Primary Care Provider Reji CRUZ MD, [place] [facility] [phone] Reason for Visit * Reason Comments Joint Pain Encounter Details Date Type Department Care Team (Late st Contact Info) Description 04/23/2019 3:00 PM CDT Office Visit [facility] [address] [place] [address] Bernard Crandall PA [address] [place] [address] Spinal stenosis of lumbar region, unspecified whether neurogenic claudication present (Primary Dx) Social History Tobacco Use Types Packs/Day Years Used Date Smoking Tobacco: Never Assessed Comments Unknown Sex and Gender Information Value Date Recorded Sex Assigned at Not on file 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 Gender Identity Not on file Sexual Orientation Not on file documented as of this encounter Last Filed Vital Signs Vital Sign Reading Time Taken Comments Blood Pressure 136/72 04/23/2019 2:33 PM CDT Pulse 99 04/23/2019 2:33 PM CDT Temperature - - Respiratory Rate - - Oxygen Saturation - - Inhaled Oxygen Concentration - - Weight 97.1 kg (214 lb) 04/23/2019 2:33 PM CDT Height 167.6 cm (5' 6 ) 04/23/2019 2:33 PM CDT Body Mass Index 34.54 04/23/2019 2:33 PM CDT documented in this encounter Progress Notes * Bernard Crandall PA - 04/23/2019 3:00 PM CDT Subjective/Objective Patient ID: Saray Whitten is a 59 y.o. female. Chief Complaint Joint Pain HPI Returns for routine follow up. Patient had seen Dr. Carrero, orthopedics. Patient is scheduled for epidural injection next to her severe spinal stenosis. She continues to have significant pain in the lower back with radiation of symptoms into the bilateral legs. Denies any major change since last visit. Depending on her response to epidural injections, considering possible need for surgical intervention. Other thanlower back/radicular symptoms, patient denies much generalized joint/muscle achiness. Denies fevers, infections, rashes, mouth sores, cough, dyspnea, pleurisy, n/v. Review of Systems Constitutional: negative for fatigue. Negative for chills and fever. HENT: Negative for congestion and mouth sores. Respiratory: Negative for cough and shortness of breath. Cardiovascular: Negative for chest pain. Gastrointestinal: Negative for abdominal pain, diarrhea, nausea and vomiting. Musculoskeletal: negative for arthralgias. Negative for myalgias. Skin: Negative [...] sounds normal. no wheezes. no rales. Musculoskeletal: TTP L spine; no obvious peripheral synovitis; full rom all ext c 5/5 strength; 100% fist pedro; heating plant superintendent intact; Lymphadenopathy: no cervical adenopathy. Neurological: alert and oriented to person, place, and time. Skin: Skin is warm and dry. No rash noted. Psychiatric: normal mood and affect. speech is normal and behavior is normal. Cognition and memory are normal. Assessment/Plan Diagnoses and all orders for this visit: Spinal stenosis of lumbar region, unspecified whether neurogenic claudication present (Primary) Assessment & Plan: Since last visit, patient has seen Dr. [...] evidence to support fibromyalgia at this time. Bernard Crandall PA-C dictating using fluency direct. Vice President For Philanthropy variances may occur. Cosigned by [place] Mendoza III, MD at 04/23/2019 6:20 PM CDT documented in this encounter Miscellaneous Notes * Assessment & Plan Note - Bernard Crandall PA - 04/23/2019 4:28 PM CDT Associated Problem(s): Spinal stenosis of lumbar region Since last visit, patient has seen Dr. [...] evidence to support fibromyalgia at this time. documented in this encounter Plan of Treatment Not on file documented as of this encounter Visit Diagnoses Diagnosis Spinal stenosis of lumbar region, unspecified whether neurogenic claudication present- Primary documented in this encounter Discontinued Medications Medication Sig Discontinue Reason Start Date End Da te DULoxetine DR (CYMBALTA) 30 mg capsule TK ONE C PO D 01/11/2019 04/23/2019 documented as of this encounter Care Teams Medical Assistant Relationship Specialty Start Date End Date Esperanza Ho MD [address] [facility] [address] [facility] [address] [place] [address] PCP - General Family Medicine 02/01/19 [place] Mendoza III, MD [address] [facility] [address] [place] [address] Consulting Physician Rheumatology 02/01/19 documented as of this encounter
--- OUTSIDE RECORDS SUMMARY | 2024-08-26 07:52 | XMS_ITS | Encounter Summary ---
Author Organization [facility] Address [address] [place] [address] Phone Care Team Providers Care Shoe Planner Name Role Phone Esperanza Ho MD Primary Care Provider Reji CRUZ MD, [place] [facility] [phone] Encounter Details Date Type Department Care Team (Late st Contact Info) Description 03/13/2019 Orders Only [facility] [address] [place] [phone] Bernard Crandall PA [address] [place] [address] Social History Tobacco Use Types Packs/Day Years Used Date Smoking Tobacco: Never Assessed Comments Unknown Sex and Gender Information Value Date Recorded Sex Assigned at Not on file Legal Sex Female 7:[address]ANT Gender Identity Not on file Sexual Orientation Not on file documented as of this encounter Plan of Treatment Not on file documented as of this encounter Procedures Procedure Name Priority Date/Time Associated Diagnosis Comments SCAN - RADIOLOGY/IMAGING 03/13/2019 8:26 AM CDT documented in this encounter Results * SCAN - RADIOLOGY/IMAGING (03/13/2019 8:26 AM CDT) Anatomical Region Laterality Modality Other us Bernard PRIETO Final R esult documented in this encounter Visit Diagnoses Not on filedocumented in this encounter Care Teams Shoe Planner Relationship Specialty Start Date End Date Esperanza Ho MD [address] [place] [address] PCP - General Family Medicine 02/01/19 [place] Mendoza III, MD [address] [facility] [address] [place] [address] Consulting Physician Rheumatology 02/01/19 documented as of this encounter
--- OUTSIDE RECORDS SUMMARY | 2024-08-26 07:53 | XMS_ITS | Encounter Summary ---
Author Organization [facility] Healthcare Address [address] [place] [address] Care Team Providers Care Bulk Filler Name Role Phone Unavailable Primary Care Provider Unavailabl e Encounter Details Date Type Department Care Team (Latest Contact Info) Description 12/05/2013 2:26 PM CDT Hospital Encounter [facility] Judson Abreu MD [address] [facility] [address] [place] [address] Other screening mammogram Social History Tobacco Use Types Packs/Day Years Used Date Smoking Tobacco: Never Assessed Comments Unknown Sex and Gender Information Value Date Recorded Sex Assigned at Not on file 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 No mammographic evidence of malignancy. ??Recommend routine annual screening mammography. ASSESSMENT: ??BIRADS: 1 - Negative A letter will be mailed to the patient with the results and recommendations. Additionally, the patient will be entered into a reminder system for an annual screening mammogram in 1 year. THIS IS AN ELECTRONICALLY VERIFIED REPORT 12/05/2013 3:17 PM: ??Zahira Wick M.D. Zahira Wick M.D. KL:rodolfo 03:17 PM 03:17 PM [facility] [EOD] Narrative 12/05/2013 3:20 PM CDT EXAMINATION: ??Bilateral screening mammography HISTORY: Routine screening mammogram. Prior benign excisional breast biopsy. COMPARISON: ??Prior mammograms including 10/23/12 and 09/29/11. TECHNIQUE: ??Bilateral digital full field of view mammography was performed, with the aid of computer aided detection (CAD). FINDINGS: ??The breasts are composed of heterogeneously dense tissue, which may limit the sensitivity of mammography. No significant mass, microcalcifications, or other abnormalities are seen. Procedure Note Provider, MD Sravanthi - 01/21/2021 EXAMINATION: Bilateral screening mammography HISTORY: Routine screening mammogram. Prior benign excisional breastbiopsy. COMPARISON: Prior mammograms including 10/23/12 and 09/29/11. TECHNIQUE: Bilateral digital full field of view mammography wasperformed, with the aid of computer aided detection (CAD). FINDINGS: The breasts are composed of heterogeneously dense tissue, whichmay limit the sensitivity of mammography. No significant mass, microcalcifications, or other abnormalities are seen. IMPRESSION: No mammographic evidence of malignancy. Recommend routine annualscreening mammography. ASSESSMENT: BIRADS: 1 - Negative A letter will be mailed to the patient with the results andrecommendations. Additionally, the patient will be entered into a reminder system for anannual screening mammogram in 1 year. THIS IS AN ELECTRONICALLY VERIFIED REPORT 12/05/2013 3:17 PM: Zahira Wick M.D. Zahira Wick M.D. KL:rodolfo 03:17 PM 03:17 PM [facility] [EOD] Judson RICEG MAMMO PROCEDURES F inal Result * GENERAL RADIOLOGY REPORT (12/05/2013 12:00 AM CDT) Anatomical Region Laterality Modality Radiographic Mayda ging Narrative 12/05/2013 12:00 AM CDT Ordered by an unspecified provider. us Historical Provider MD MAGANA XR PROCEDURES Final R esult documented in this encounter Visit Diagnoses Diagnosis Other screening mammogram documented in this encounter
--- OUTSIDE RECORDS SUMMARY | 2024-08-26 07:53 | XMS_ITS | Encounter Summary ---
Author Organization [facility] Healthcare Address [address] [place] [address] Care Team Providers Care Internal Combustion Engineer Name Role Phone Unavailable Primary Care Provider Unavailabl e Encounter Details Date Type Department Care Team (Latest Contact Info) Description 10/23/2012 9:51 AM STATIONARY FIREMAN Hospital Encounter [facility] Judson Abreu MD [address] [facility] [address] [place] [address] Other screening mammogram Social History Tobacco Use Types Packs/Day Years Used Date Smoking Tobacco: Never Assessed Comments Unknown Sex and Gender Information Value Date Recorded Sex Assigned at Not on file Legal Sex Female 7:47 PM 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 No mammographic evidence of malignancy. ??Recommend routine annual screening mammography. ASSESSMENT: ??BIRADS: 1 - Negative THIS IS AN ELECTRONICALLY VERIFIED REPORT 10/23/2012 11:53 AM: ??Zahira Wick M.D. Johanny Alvarenga:rodolfo 11:53 AM 11:53 AM [EOD] Narrative 10/23/2012 11:57 AM STATIONARY FIREMAN EXAMINATION: ??BILATERAL SCREENING MAMMOGRAPHY HISTORY: ??Routine screening mammogram. ??Prior benign left breast biopsy over 10 years ago. COMPARISON: ??Prior mammograms including 09/29/11 and 09/28/10. TECHNIQUE: ??Bilateral digital full field of view mammography was performed, with the aid of computer aided detection (CAD). FINDINGS: ??The breasts are composed of heterogeneously dense tissue, which may limit the sensitivity of mammography. No significant masses, microcalcifications, architectural distortion or skin thickening are seen. There has been no significant interval change relative to the prior studies. Procedure Note Provider, MD Sravanthi - 01/21/2021 EXAMINATION: BILATERAL SCREENING MAMMOGRAPHY HISTORY: Routine screening mammogram. Prior benign left breast biopsyover 10 years ago. COMPARISON: Prior mammograms including 09/29/11 and 09/28/10. TECHNIQUE: Bilateral digital full field of view mammography wasperformed, with the aid of computer aided detection (CAD). FINDINGS: The breasts are composed of heterogeneously dense tissue, whichmay limit the sensitivity of mammography. No significant masses, microcalcifications, architectural distortion or skin thickening are seen. There has been no significant interval change relative to the priorstudies. IMPRESSION: No mammographic evidence of malignancy. Recommend routine annualscreening mammography. ASSESSMENT: BIRADS: 1 - Negative THIS IS AN ELECTRONICALLY VERIFIED REPORT 10/23/2012 11:53 AM: Zahira Wick M.D. Johanny Alvarenga:rodolfo 11:53 AM 11:53 AM [EOD] us Judson Abreu MD IMG MAMMO PROCEDURES F inal Result documented in this encounter Visit Diagnoses Diagnosis Other screening mammogram documented in this encounter
--- OUTSIDE RECORDS SUMMARY | 2024-08-26 07:53 | XMS_ITS | Encounter Summary ---
Author Organization [facility] Healthcare Address [address] [place] [address] Care Team Providers Care Machine Stoppage Frequency Checker Name Role Phone Unavailable Primary Care Provider Unavailabl e Encounter Details Date Type Department Care Team (Latest Contact Info) Description 04/04/2017 2:11 PM CDT Hospital Encounter [facility] Judson Abreu MD [address] [facility] [address] [place], [place] [id number] Encounter for screening mammogram for malignant neoplasm of breast Social History Tobacco Use Types Packs/Day Years Used Date Smoking Tobacco: Never Assessed Comments Unknown Sex and Gender Information Value Date Recorded Sex Assigned at Not on file 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 Gender Identity Not on file Sexual Orientation Not on file documented as of this encounter Plan of Treatment Not on file documented as of this encounter Procedures Procedure Name Priority Date/Time Associated Diagnosis Comments SCREENING MAMMOGRAM BILATERAL W LATRELL Routine 04/04/2017 2:14 PM CDT GENERAL RADIOLOGY REPORT 04/04/2017 12:00 AM CDT documented in this encounter Results * Screening Mammogram Bilateral W Latrell (04/04/2017 2:14 PM CDT) Anatomical Region Laterality Modality Breast Bilateral Mammography 04/04/2017 2:14 PM CDT Impressions 04/04/2017 4:58 PM CDT BI-RAD 1 ??NEGATIVE There is no mammographic evidence of malignancy. A 1 year screening mammogram is recommended. ?? The patient has been or will be contacted. ?? The patient will be entered into a reminder system with a target due date of 1 year for her next screening exam. Electronically signed by: Dr. Allan Goode M.D. nj/gemma:04/04/2017 16:56:48 ?? Manager Crisis: Nadira Collazo Mammography letter sent: Normal Exam ?? Reading location: BI-RADS: 1 Negative [EOD] Narrative 04/04/2017 4:58 PM CDT - MG BILATERAL DIGITAL SCREENING MAMMOGRAM 3D/2D WITH MEDIOLATERAL OBLIQUE CRANIOCAUDAL: 04/04/2017 The study was acquired using full field digital technology and interpreted from soft copy. ?? 2D digital mammographic views, as well as 3D digital tomosynthesis were performed in the CC and MLO projections. CLINICAL: Routine mammogram. Denies any problems today. No personal history of breast cancer. No family history of breast cancer. ?? COMPARISONS: Comparison is made to exams dated: ??01/19/2016 mammogram and 01/15/2015 mammogram - [facility]. ?? BREAST TISSUE: There are scattered areas of fibroglandular density. ?? FINDINGS: No significant masses, calcifications, or other findings are seen in either breast. ?? There has been no significant interval change. Procedure Note Provider, MD Sravanthi - 01/21/2021 - MG BILATERAL DIGITAL SCREENING MAMMOGRAM 3D/2D WITH MEDIOLATERAL OBLIQUE CRANIOCAUDAL: 04/04/2017 The study was acquired using full field digital technology and interpretedfrom soft copy. 2D digital mammographic views, as well as 3D digital tomosynthesis were performed in the CC and MLO projections. CLINICAL: Routine mammogram. Denies any problems today. No personalhistory of breast cancer. No family history of breast cancer. COMPARISONS: Comparison is made to exams dated: 01/19/2016 mammogram and 01/15/2015 mammogram - [facility]. BREAST TISSUE: There are scattered areas of fibroglandular density. FINDINGS: No significant masses, calcifications, or other findings areseen in either breast. There has been no significant interval change. IMPRESSION: BI-RAD 1 NEGATIVE There is no mammographic evidence of malignancy. A 1 year screeningmammogram is recommended. The patient has been or will be contacted. The patient will be entered into a reminder system with a target due dateof 1 year for her next screening exam. Electronically signed by: Dr. Allan navarrete/gemma:04/04/2017 16:56:48 Manager Crisis: Nadira Collazo Mammography letter sent: Normal Exam Reading location: BI-RADS: 1 Negative [EOD] Judson Abreu MD IMG MAMMO PROCEDURES F inal Result * GENERAL RADIOLOGY REPORT (04/04/2017 12:00 AM CDT) Anatomical Region Laterality Modality Radiographic Mayda ging Narrative 04/04/2017 12:00 AM CDT Ordered by an unspecified provider. us Historical Provider MD MAGANA XR PROCEDURES Final R esult documented in this encounter Visit Diagnoses Diagnosis Encounter for screening mammogram for malignant neoplasm of breast documented in this encounter
--- OUTSIDE RECORDS SUMMARY | 2024-08-26 07:53 | XMS_ITS | Encounter Summary ---
Author Organization [facility] Healthcare Address [address] [place] [address] Care Team Providers Care Supervisor Tank Cleaning Name Role Phone Unavailable Primary Care Provider Unavailabl e Encounter Details Date Type Department Care Team (Latest Contact Info) Description 01/15/2015 5:50 PM CDT Hospital Encounter [facility] OP Judson Abreu MD [address] 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 us Historical Provider MD MAGANA XR PROCEDURES Final R esult * Screening Mammogram Bilateral W Latrell (01/15/2015 5:51 PM CDT) Anatomical Region Laterality Modality Breast Bilateral Mammography 01/15/2015 5:51 PM CDT Impressions 01/16/2015 3:59 PM CDT BIRADS 1: ??NEGATIVE There is no mammographic evidence of malignancy. A 1 year screening mammogram is recommended. ?? The patient has been or will be contacted. ?? The patient will be entered into an automated reminder system to schedule a mammogram in one year. Electronically signed by: Dr. Allan Goode nh/:01/16/2015 15:59:16 ?? Cotton Tipper: Humaira Abreu RT(R)(M), [facility] letter sent: Normal Exam ?? Reading location: BI-RADS: 1 Negative [EOD] Narrative 01/16/2015 3:59 PM CDT - [facility] BILAT SCREENING 3D W/CAD BILATERAL DIGITAL SCREENING MAMMOGRAM 3D/2D WITH CAD WITH MEDIOLATERAL OBLIQUE CRANIOCAUDAL: 01/15/2015 The study was acquired using full field digital technology and interpreted from soft copy. ?? Current study was also evaluated with ICAD version 7.2. CLINICAL: Routine mammogram. Patient denies any problems. No family or personal history of breast cancer. ?? COMPARISONS: Comparison is made to exams dated: ??12/05/2013 mammogram and 10/23/2012 mammogram - [facility]. ?? BREAST TISSUE: The tissue of both breasts is heterogeneously dense, which may obscure small masses. ?? FINDINGS: No significant masses, calcifications, or other findings are seen in either breast. ?? There has been no significant interval change. Procedure Note Provider, MD Sravanthi - 01/21/2021 - [facility] BILAT SCREENING 3D W/CAD BILATERAL DIGITAL SCREENING MAMMOGRAM 3D/2D WITH CAD WITH MEDIOLATERALOBLIQUE CRANIOCAUDAL: 01/15/2015 The study was acquired using full field digital technology and interpretedfrom soft copy. Current study was also evaluated with ICAD version 7.2. CLINICAL: Routine mammogram. Patient denies any problems. No family orpersonal history of breast cancer. COMPARISONS: Comparison is made to exams dated: 12/05/2013 mammogram and 10/23/2012 mammogram - [facility]. BREAST TISSUE: The tissue of both breasts is heterogeneously dense, whichmay obscure small masses. FINDINGS: No significant masses, calcifications, or other findings areseen in either breast. There has been no significant interval change. IMPRESSION: BIRADS 1: NEGATIVE There is no mammographic evidence of malignancy. A 1 year screeningmammogram is recommended. The patient has been or will be contacted. The patient will be entered into an automated reminder system to schedulea mammogram in one year. Electronically signed by: Dr. Allan Goode nh/:01/16/2015 15:59:16 Cotton Tipper: Humaira Abreu RT(R)(M), [facility] letter sent: Normal Exam Reading location: BI-RADS: 1 Negative [EOD] us Judson Abreu MD IMG MAMMO PROCEDURES F inal Result documented in this encounter Visit Diagnoses Diagnosis Other screening mammogram documented in this encounter
--- OUTSIDE RECORDS SUMMARY | 2024-08-26 07:53 | XMS_ITS | Encounter Summary ---
Author Organization [facility] Healthcare Address [address] [place] [address] Care Team Providers Care A And P Technician Name Role Phone Unavailable Primary Care Provider Unavailabl e Encounter Details Date Type Department Care Team (Latest Contact Info) Description 05/29/2018 2:05 PM CDT Hospital Encounter [facility] Judson Abreu MD [address] [facility] [address] [place] [address] Encounter for screening mammogram for malignant neoplasm of breast Social History Tobacco Use Types Packs/Day Years Used Date Smoking Tobacco: Never Assessed Comments Unknown Sex and Gender Information Value Date Recorded Sex Assigned at Not on file 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 Gender Identity Not on file Sexual Orientation Not on file documented as of this encounter Plan of Treatment Not on file documented as of this encounter Procedures Procedure Name Priority Date/Time Associated Diagnosis Comments SCREENING MAMMOGRAM BILATERAL W LATRELL Routine 05/29/2018 2:11 PM CDT GENERAL RADIOLOGY REPORT 05/29/2018 12:00 AM CDT documented in this encounter Results * Screening Mammogram Bilateral W Latrell (05/29/2018 2:11 PM CDT) Anatomical Region Laterality Modality Breast Bilateral Mammography 05/29/2018 2:11 PM CDT Impressions 05/29/2018 3:57 PM CDT BI-RAD 1 ??NEGATIVE There is no mammographic evidence of malignancy. A 1 year screening mammogram is recommended. ?? The patient has been or will be contacted. ?? The patient will be entered into a reminder system with a target due date of 1 year for her next screening exam. Electronically signed by: Dr. Allan navarrete/gemma:05/29/2018 15:56:35 ?? Supervisor Gear Repair: Opal Ramires, [facility] letter sent: Normal Exam ?? Reading location: [facility] BI-RADS: 1 Negative [EOD] Narrative 05/29/2018 3:57 PM CDT - MG BILATERAL DIGITAL SCREENING MAMMOGRAM 3D/2D WITH MEDIOLATERAL OBLIQUE CRANIOCAUDAL: 05/29/2018 The study was acquired using full field digital technology and interpreted from soft copy. ?? 2D digital mammographic views, as well as 3D digital tomosynthesis were performed in the CC and MLO projections. CLINICAL: Routine mammogram. Denies any problems today. No personal history of breast cancer. No family history of breast cancer. ?? COMPARISONS: Comparison is made to exams dated: ??04/04/2017 mammogram - [facility] and 01/19/2016 mammogram - [facility]. ?? BREAST TISSUE: There are scattered areas of fibroglandular density. ?? FINDINGS: No significant masses, calcifications, or other findings are seen in either breast. ?? There has been no significant interval change. Procedure Note Provider, MD Sravanthi - 01/21/2021 - MG BILATERAL DIGITAL SCREENING MAMMOGRAM 3D/2D WITH MEDIOLATERAL OBLIQUE CRANIOCAUDAL: 05/29/2018 The study was acquired using full field digital technology and interpretedfrom soft copy. 2D digital mammographic views, as well as 3D digital tomosynthesis were performed in the CC and MLO projections. CLINICAL: Routine mammogram. Denies any problems today. No personalhistory of breast cancer. No family history of breast cancer. COMPARISONS: Comparison is made to exams dated: 04/04/2017 mammogram -[facility] and 01/19/2016 mammogram - [facility]. BREAST TISSUE: There are scattered areas of [...] Electronically signed by: Dr. Allan Goode M.D. nh/penrad:05/29/2018 15:56:35 Supervisor Gear Repair: Opal Ramires, [facility] letter sent: Normal Exam Reading location: [facility] BI-RADS: 1 Negative [EOD] Judson Abreu MD IMG MAMMO PROCEDURES F inal Result * GENERAL RADIOLOGY REPORT (05/29/2018 12:00 AM CDT) Anatomical Region Laterality Modality Radiographic Mayda ging Narrative 05/29/2018 12:00 AM CDT Ordered by an unspecified provider. Historical Provider IMG XR PROCEDURES Final R esult documented in this encounter Visit Diagnoses Diagnosis Encounter for screening mammogram for malignant neoplasm of breast documented in this encounter
--- OUTSIDE RECORDS SUMMARY | 2024-08-26 07:53 | XMS_ITS | Encounter Summary ---
Author Organization [facility] Address [address] [place] [id number] Care Team Providers Care Commercial Credit Officer Name Role Phone Unavailable Primary Care Provider Unavailabl e Encounter Details Date Type Department Care Team (Latest Contact Info) Description 01/19/2016 1:33 PM CDT Hospital Encounter [facility] Judson Abreu MD [address] [facility] [address] [place], [place] [id number] Encounter for screening mammogram for malignant neoplasm of breast Social History Tobacco Use Types Packs/Day Years Used Date Smoking Tobacco: Never Assessed Comments Unknown Sex and Gender Information Value Date Recorded Sex Assigned at Not on file Legal Sex Female 7:47 PM [employer] Gender Identity Not on file Sexual Orientation Not on file documented as of this encounter Plan of Treatment Not on file documented as of this encounter Procedures Procedure Name Priority Date/Time Associated Diagnosis Comments SCREENING MAMMOGRAM BILATERAL W LATRELL Routine 01/19/2016 1:36 PM CDT GENERAL RADIOLOGY REPORT 01/19/2016 12:00 AM CDT documented in this encounter Results * Screening Mammogram Bilateral W Latrell (01/19/2016 1:36 PM CDT) Anatomical Region Laterality Modality Breast Bilateral Mammography 01/19/2016 1:36 PM CDT Impressions 01/19/2016 3:28 PM CDT BI-RAD 1 ??NEGATIVE There is no mammographic evidence of malignancy. A 1 year screening mammogram is recommended. ?? The patient has been or will be contacted. ?? The patient will be entered into a reminder system with a target due date of 1 year for her next screening exam. Electronically signed by: Cortes Jackson md/gemma:01/19/2016 15:27:03 ?? Manager Lvn: Humaira Abreu RT(R)(M), [facility] letter sent: Normal Exam ?? Reading location: BI-RADS: 1 Negative [EOD] Narrative 01/19/2016 3:28 PM CDT - MG BILATERAL DIGITAL SCREENING MAMMOGRAM 3D/2D WITH CAD WITH MEDIOLATERAL OBLIQUE CRANIOCAUDAL: 01/19/2016 The study was acquired using full field digital technology and interpreted from soft copy. ?? Current study was also evaluated with R2 CAD. 2D digital mammographic views, as well as 3D digital tomosynthesis were performed in the CC and MLO projections. CLINICAL: Routine mammogram. Denies any problems today. No personal history of breast cancer. No family history of breast cancer. ?? COMPARISONS: Comparison is made to exams dated: ??01/15/2015 mammogram - [facility], 12/05/2013 mammogram, and 10/23/2012 mammogram - [facility]. BREAST TISSUE: There are scattered areas of fibroglandular density. ?? FINDINGS: No significant masses, calcifications, or other findings are seen in either breast. ?? There has been no significant interval change. Procedure Note Provider, MD Sravanthi - 01/21/2021 - MG BILATERAL DIGITAL SCREENING MAMMOGRAM 3D/2D WITH CAD WITH MEDIOLATERALOBLIQUE CRANIOCAUDAL: 01/19/2016 The study was acquired using full field digital technology and interpretedfrom soft copy. Current study was also evaluated with R2 CAD. 2D digital mammographic views, as well as 3D digital tomosynthesis were performed in the CC and MLO projections. CLINICAL: Routine mammogram. Denies any problems today. No personalhistory of breast cancer. No family history of breast cancer. COMPARISONS: Comparison is made to exams dated: 01/15/2015 mammogram -[facility], 12/05/2013 mammogram, and [facility]23/2012 [facility]. BREAST TISSUE: There are scattered areas of [...] screening exam. Electronically signed by: Cortes Jackson md/gemma:01/19/2016 15:27:03 Manager Lvn: Humaira Abreu RT(R)(M), [facility] letter sent: Normal Exam Reading location: BI-RADS: 1 Negative [EOD] Judson Abreu MD IMG MAMMO PROCEDURES F inal Result * GENERAL RADIOLOGY REPORT (01/19/2016 12:00 AM CDT) Anatomical Region Laterality Modality Radiographic Mayda ging Narrative 01/19/2016 12:00 AM CDT Ordered by an unspecified provider. Historical Provider MD MAGANA XR PROCEDURES Final R esult documented in this encounter Visit Diagnoses Diagnosis Encounter for screening mammogram for malignant neoplasm of breast documented in this encounter
--- OUTSIDE RECORDS SUMMARY | 2024-08-26 07:53 | XMS_ITS | Encounter Summary ---
Author Organization [facility] Address [address] [place] [phone] Phone Care Team Providers Care Gifted Teacher Name Role Phone Esperanza Ho MD Primary Care Provider Reji CRUZ MD, [facility] [phone] Reason for Referral * Diagnostic Imaging (Routine) - Closed Specialty Diagnoses / Procedures Referred By Contac t Referred To Contact Diagnoses Low back pain radiating to lower extremity Procedures MRI Lumbar Spine WO Contrast Bernard Crandall PA Phone: tel: External Order Referral ID Status Reason Start Date Expiration Date Visits Re quested Visits Authorized [id number] Closed 02/28/2019 09/08/2020 1 1 * Diagnostic Imaging (Routine) - Closed Specialty Diagnoses / Procedures Referred By Contac t Referred To Contact Diagnoses Polyarthralgia Procedures XR Sacroiliac Joints 3 or More Views Bernard Crandall PA Phone: tel: External Order Referral ID Status Reason Start Date Expiration Date Visits Re quested Visits Authorized [id number] Closed 02/28/2019 09/08/2020 1 1 * Diagnostic Imaging (Routine) - Closed Specialty Diagnoses / Procedures Referred By Contac t Referred To Contact Diagnoses Polyarthralgia Procedures XR Spine Lumbar 2 or 3 Views Bernard Crandall PA Phone: tel: External Order Referral ID Status Reason Start Date Expiration Date Visits Re quested Visits Authorized [id number] Closed 02/28/2019 09/08/2020 1 1 * Diagnostic Imaging (Routine) - Closed Specialty Diagnoses / Procedures Referred By Contac t Referred To Contact Diagnoses Polyarthralgia Procedures XR Chest Pa Lateral 2 Views Bernard Crandall PA Phone: tel: External Order Referral ID Status Reason Start Date Expiration Date Visits Re quested Visits Authorized [id number] Closed 02/28/2019 09/08/2020 1 1 Reason for Visit * Reason Comments Joint Pain Encounter Details Date Type Department Care Team (Latest Contact Info) Description 02/28/2019 11:15 AM CDT Office Visit [address] [address] Bernard Crandall PA [address] [place] [address] Polyarthralgia (Primary Dx); Fatigue, unspecified type; Low back pain radiating to lower extremity Social History Tobacco Use Types Packs/Day Years Used Date Smoking Tobacco: Never Assessed Comments Unknown Sex and Gender Information Value Date Recorded Sex Assigned at Not on file Legal 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 Gender Identity Not on file Sexual Orientation Not on file documented as of this encounter Last Filed Vital Signs Vital Sign Reading Time Taken Comments Blood Pressure 110/62 02/28/2019 11:07 AM CDT Pulse 94 02/28/2019 11:07 AM CDT Temperature - - Respiratory Rate - - Oxygen Saturation - - Inhaled Oxygen Concentration - - Weight 93.9 kg (207 lb) 02/28/2019 11:07 AM CDT Height 167.6 cm (5' 6 ) 02/28/2019 11:07 AM CDT Body Mass Index 33.41 02/28/2019 11:07 AM CDT documented in this encounter Progress Notes * Bernard Crandall PA - 02/28/2019 11:15 AM CDT Subjective/Objective Patient ID: Saray Whitten is a 58 y.o. female. Chief Complaint Joint Pain HPI Patient here for evaluation of recent diagnosis of fibromyalgia. Biggest complaint at today's visitis pain in the lower back, posterior hips, bilateral lateral hips with radiation of symptoms down the bilateral legs at times. Notes cold sensation/tingling on the bilateral distal lower extremities and into the feet at times. Did have prior lumbar spine x-rays which displayed degenerative arthritis, per patient report. Symptoms improve when leaning forward and worsen when standing upright. Went to PT in 2016 for lower back symptoms, although denies any benefit. Patient also notes cramping in the bilateral hands and feet intermittently. Denies much pain or stiffness in the hands/feet. Does sec ondarily complain of some generalized myalgias/arthralgias. Patient does [...] Family hx: mother: RA Review of Systems Constitutional:Positive for fatigue. Negative for fever. HENT: Negative for mouth sores. Eyes: Negative for redness. Respiratory: Negative for shortness of breath. Cardiovascular: Negative for chest pain. Gastrointestinal: Negative for blood in stool and diarrhea. No Dysphagia Genitourinary: No renal stones Musculoskeletal: Positive for arthralgias. Skin: Negative for rash. Neurological: Negative for seizures. Physical Exam Constitutional: appears well-developed and well-nourished. HENT: Head: Normocephalic. Right Ear: External ear normal. Left Ear: External ear normal. Nose: Nose normal. Mouth/Throat: No oropharyngeal exudate. Eyes: Conjunctivae and EOM are normal. Pupils are equal, round, and reactive to light. Right eye exhibits no discharge. Left eye exhibits no discharge. No scleral icterus. Neck: Normal range of motion. Neck supple. No tracheal deviation present. No thyromegaly present. Cardiovascular: Normal rate, regular rhythm, normal heart sounds and intact distal pulses. Exam reveals no gallop and no friction rub. No murmur heard. Pulmonary/Chest: Effort normal. No respiratory distress. no wheezes. no rales. Musculoskeletal: pes cavus; TTP bilateral plantar midfoot region; TTP L-spine; few fibromyalgia tender points Lymphadenopathy: no cervical adenopathy. Neurological: alert. normal reflexes. No cranial nerve deficit or sensory deficit. normal muscle tone. Coordination normal. Decreased patellar/achilles reflex L side; Skin: Skin is warm and dry. No rash noted. No erythema. No pallor. Psychiatric: normal mood and affect. behavior is normal. Assessment/Plan Diagnoses and all orders for this visit: Polyarthralgia (Primary) Assessment & Plan: Primary complaint today is lower back/posterior hip pain with radicular symptoms, primarily L sided. Symptoms improve when leaning forward and worse when sitting upright. Decreased left patellar and Achilles tendon reflex were noted. Symptoms are concerning for possible spinal stenosis vs sciatica. Secondarily, patient does complain of some generalized myalgias/arthralgias, which I do suspect shedoes have a degree of fibromyalgia contributing to these symptoms. Would like to further evaluate with appropriate serologies, radiographs, as well as a L spine MRI. Follow-up 2 weeks. Sooner if needed. Seen with Dr. Mendoza. Orders: - Aldolase; Future - C3 complement; Future - C4 complement; Future - CBC with auto differential; Future - Complement, total; Future - Comprehensive metabolic panel; Future - Creatine kinase (CK), total; Future - CRP (acute phase); Future - Erythrocyte sedimentation rate; Future - Hepatitis B core antibody, total; Future - Hepatitis B Surface Antigen; Future - Hepatitis C antibody; Future - AVISE - Miscellaneous Test; Future - Protein / creatinine ratio, urine, random; Future - Urinalysis reflex to microscopic and culture Urine; Future - XR Chest Pa Lateral 2 Views; Future - XR Spine Lumbar 2 or 3 Views; Future - XR Sacroiliac Joints 3 or More Views; Future - TB test, quantiferon gold; Future Fatigue, unspecified type - CBC with auto differential; Future - Comprehensive metabolic panel; Future - Hepatitis B core antibody, total; Future - Hepatitis B Surface Antigen; Future - Hepatitis C antibody; Future Low back pain radiating to lower extremity - MRI Lumbar Spine WO Contrast; Future CONNER Rice-Chantel dictating using fluency direct. Livestock Nutritionist variances may occur. Cosigned by Montana Mendoza III, MD at 02/28/2019 5:08 PM CDT documented in this encounter Miscellaneous Notes * Assessment & Plan Note - Bernard Crandall PA - 02/28/2019 4:23 PM CDT Associated Problem(s): Spinal stenosis of lumbar region Primary complaint today is lower back/posterior hip pain with radicular symptoms, primarily L sided. Symptoms improve when leaning forward and worse when sitting upright. Decreased left patellar and Achilles tendon reflex were noted. Symptoms are concerning for possible spinal stenosis vs sciatica. Secondarily, patient does complain of some generalized myalgias/arthralgias, which I do suspect shedoes have a degree of fibromyalgia contributing to these symptoms. Would like to further evaluate with appropriate serologies, radiographs, as well as a L spine MRI. Follow-up 2 weeks. Sooner if needed. Seen with Dr. Mendoza. documented in this encounter Plan of Treatment Scheduled Orders Name Type Priority Associated Diagnoses Order Schedule Hepatitis B core antibody, total Lab Routine Polyarthralgia Fatigue, unspecified type Expected: 02/28/2019, Expires: 02/29/2020 Hepatitis B Surface Antigen Lab Routine Polyarthralgia Fatigue, unspecified type Expected: 02/28/2019, Expires: 02/29/2020 Hepatitis C antibody Lab Routine Polyarthralgia Fatigue, unspecified type Expected: 02/28/2019, Expires: 02/29/2020 Urinalysis reflex to microscopic and culture Urine Microbiology Routine Polyarthralgia Expected: 02/28/2019, Expires: 02/29/2020 XR Chest Pa Lateral 2 Views Imaging Schedule Routine, Read Routine (OP Routine) Polyarthralgia Expected: 02/28/2019, Expires: 02/29/2020 XR Spine Lumbar 2 or 3 Views Imaging Schedule Routine, Read Routine (OP Routine) Polyarthralgia Expected: 02/28/2019, Expires: 02/29/2020 XR Sacroiliac Joints 3 or More Views Imaging Schedule Routine, Read Routine (OP Routine) Polyarthralgia Expected: 02/28/2019, Expires: 02/29/2020 MRI Lumbar Spine WO Contrast Imaging Schedule Routine, Read Routine (OP Routine) Low back pain radiating to lower extremity Expected: 02/28/2019, Expires: 02/29/2020 documented as of this encounter Procedures Procedure Name Priority Date/Time Associated Diagnosis Comments C4 COMPLEMENT Routine 02/28/2019 12:32 PM CDT Polyarthralgia TB TEST, QUANTIFERON GOLD Routine 02/28/2019 12:32 PM CDT Polyarthralgia URINALYSIS AND REFLEX TO MICROSCOPIC AND CULTURE Routine 02/28/2019 12:32 PM CDT CBC WITH AUTO DIFFERENTIAL Routine 02/28/2019 12:32 PM CDT Polyarthralgia Fatigue, unspecified type HEPATITIS C ANTIBODY Routine 02/28/2019 12:32 PM CDT PROTEIN / CREATININE RATIO, URINE, RANDOM Routine 02/28/2019 12:32 PM CDT Polyarthralgia ALDOLASE Routine 02/28/2019 12:32 PM CDT Polyarthralgia HEPATITIS B CORE ANTIBODY, TOTAL Routine 02/28/2019 12:32 PM CDT HEPATITIS B SURFACE ANTIGEN Routine 02/28/2019 12:32 PM CDT ERYTHROCYTE SEDIMENTATION RATE Routine 02/28/2019 12:32 PM CDT Polyarthralgia COMPLEMENT, TOTAL Routine 02/28/2019 12: 32 PM CDT Polyarthralgia C3 COMPLEMENT Routine 02/28/2019 12:32 PM CDT Polyarthralgia CRP (ACUTE PHASE) Routine 02/28/2019 12: 32 PM CDT Polyarthralgia CREATINE KINASE (CK), TOTAL Routine 02/28/2019 12:32 PM CDT Polyarthralgia COMPREHENSIVE METABOLIC PANEL Routine 02/28/2019 12:32 PM CDT Polyarthralgia Fatigue, unspecified type MISCELLANEOUS LAB TEST Routine 02/28/2019 Polyarthralgia documented in this encounter Results * Hepatitis C antibody (02/28/2019 12:32 PM CDT) Hep C Ab NON-REACT MARGARITA NON-REACT MARGARITA [facility] [place] SIGNAL TO CUT-OFF 0.01 <1.00 [facility] [place] Comment: HCV antibody was non-reactive. There is no laboratory evidence of HCV infection. In most cases, no further action is required. However, if recent HCV exposure is suspected, a test for HCV RNA (test code 49722) is suggested. For additional information please refer to http://education.[employer] [facility]/faq/IUN57k8 (This link is being provided for informational/ educational purposes only.) 02/28/2019 12:3 2 PM CDT 02/28/2019 12:33 PM CDT Narrative Resulting Agency Comment Performing Organization Information: ?Site ID: [place] ?Name: [facility] ?Address: [address] [address] ?Director: Julien Neville D.O., MPH Bernard [facility] MICROBI[facility] - GENE RAL ORDERABLES Final Result Performing Organization Address [facility]/ZIP Co de Phone Number [facility] [place] * Hepatitis B core antibody, total (02/28/2019 12:32 PM CDT) Hep B core IgG/IgM NON-REACTI VE NON-REACTI VE [facility] [place] 02/28/2019 12:3 2 PM CDT 02/28/2019 12:33 PM CDT Narrative Resulting Agency Comment Performing Organization Information: ?Site ID: [place] ?Name: [facility] ?Address: [facility] [place] [address] ?Director: Julien Neville D.O., MPH Bernard [facility] MICROBIOLOGY - GENE RAL ORDERABLES Final Result Performing Organization Address [facility] Co de Phone Number [facility] [place] * Hepatitis B Surface Antigen (02/28/2019 12:32 PM CDT) HepBsAg NON-REACTI VE NON-REACTI VE [facility] [place] 02/28/2019 12:3 2 PM CDT 02/28/2019 12:33 PM CDT Narrative Resulting Agency Comment Performing Organization Information: ?Site ID: [place] ?Name: [facility] ?Address: [facility] [place] [address] ?Director: Julien Neville D.O. MPH Bernard [facility] MICROBI[facility]Y - GENE RAL ORDERABLES Final Result Performing Organization Address [facility] Co de Phone Number [facility] [place] * (ABNORMAL) Urinalysis reflex to microscopic and culture (02/28/2019 12:32 PM CDT) Color, ur YELLOW YELLOW [facility] [place] Appearance, ur CLEAR CLEAR [facility] [place] Specific gravity 1.013 1.001 - 1.035 [facility] [place] pH, ur 8.0 5.0 - 8.0 [facility] [place] Glucose, ur NEGATIVE NEGATIVE [facility] [place] Bilirubin, ur NEGATIVE NEGATIVE [facility] [place] Ketones, ur NEGATIVE NEGATIVE [facility] [place] Blood, ur NEGATIVE NEGATIVE [facility] [place] Protein, ur, quant NEGATIVE NEGATIVE [facility] [place] Nitrites, ur NEGATIVE NEGATIVE [facility] [place] Leukocyte esterase, ur 3+(A) NEGATIVE [facility] [place] WBC, ur 40-60(A) < OR = 5 /HPF [facility] [place] RBC, ur 3-10(A) < OR = 2 /HPF [facility] [place] Epithelial cells, squamous, ur 0-5 < OR = 5 /HPF [facility] [place] Bacteria, ur, quant FEW(A) NONE SEEN /HPF [facility] [place] Hyaline cast 1-3(A) NONE SEEN /LPF [facility] [place] Urine culture CULTURE INDICATED - RESULTS TO FOLLOW [facility] [place] Urine culture [facility] [place] Comment: ??CULTURE, URINE, ROUTINE ?MICRO NUMBER: ?[id number] ??TEST STATUS: ? FINAL ??SPECIMEN SOURCE: ?? URINE ??SPECIMEN QUALITY: ??ADEQUATE ??RESULT: ?Single organism less than 10,000 CFU/mL isolated. ? These organisms, commonly found on external and ? internal genitalia, are considered colonizers. ? No further testing performed. 02/28/2019 12:3 2 PM CDT 02/28/2019 12:33 PM CDT Narrative Resulting Agency Comment Performing Organization Information: ?Site ID: [place] ?Name: [facility] ?Address: [address] [address] ?Director: Julien Neville D.O., MPH us Bernard [facility] MICROBIOLOGY - GENE RAL ORDERABLES Final Result [facility] [place] * TB test, quantiferon gold (02/28/2019 12:32 PM CDT) QuantiFERON(R)-T B Gold Plus, [address] [facility] Comment: Negative test result. M. tuberculosis complex infection unlikely. NIL 0.03 IU/mL [facility] MITOGEN-NIL 9.24 IU/mL [facility] TB1-NIL 0.01 IU/mL [facility] TB2-NIL <0.00 IU/mL [facility] Comment: The Nil tube value reflects the background interferon gamma immune response of the patient's blood sample. This value has been subtracted from the patient's displayed TB and Mitogen results. Lower than expected results with the Mitogen tube prevent false-negative Quantiferon readings by detecting a patient with a potential immune suppressive condition and/or suboptimal pre-analytical specimen handling. The TB1 Antigen tube is coated with the M. tuberculosis-specific antigens designed to elicit responses from TB antigen primed CD4+ helper T-lymphocytes. The TB2 Antigen tube is coated with the M. tuberculosis-specific antigens designed to elicit responses from TB antigen primed CD4+ helper and CD8+ cytotoxic T-lymphocytes. For additional information, please refer to https://education.[facility] [facility]/faq/ZMR255 (This link is being provided for informational/ educational purposes only.) Blood specimen (specimen) 02/28/2019 12:32 PM CDT 02/28/2019 12:33 PM CDT Narrative Resulting Agency Comment Performing Organization Information: ?Site ID: [place] ?Name: [facility] ?Address: [address] [address] ?Director: Julien Neville D.O., MPH Bernard [facility] BLOOD ORDERABLES Fi nal Result [facility] [place] * Protein / creatinine ratio, urine, random (02/28/2019 12:32 PM CDT) Pathologist [facility] Creatinine, ur 95 20 - 275 mg/dL [facility] [place] Protein/creati nine ratio 116 21 - 161 mg/g creat [facility] [place] Protein, ur, quant 11 5 - 24 mg/dL [facility] [place] Urine 02/28/2019 12:3 2 PM CDT 02/28/2019 12:33 PM CDT Narrative Resulting Agency Comment Performing Organization Information: ?Site ID: [place] ?Name: [facility] ?Address: [facility] [place] [address] ?Director: Julien Neville D.O., MPH Bernard [facility] URINE ORDERABLES Fi nal Result Performing Organization Address [facility] Co de Phone Number [facility] [place] * Erythrocyte sedimentation rate (02/28/2019 12:32 PM CDT) Erythrocyte sedimentation rate 29 < OR = 30 mm/h [facility] [place] Blood specimen (specimen) 02/28/2019 12:32 PM CDT 02/28/2019 12:33 PM CDT Narrative Resulting Agency Comment Performing Organization Information: ?Site ID: [place] ?Name: [facility] ?Address: [facility] [place] [address] ?Director: Julien Neville D.O., MPH Bernard [facility] BLOOD ORDERABLES Fi nal Result Performing Organization Address City/[facility] Co de Phone Number [facility] [place] * CRP (acute phase) (02/28/2019 12:32 PM CDT) C-RP 4.8 <8.0 mg/L [facility] [place] Blood specimen (specimen) 02/28/2019 12:32 PM CDT 02/28/2019 12:33 PM CDT Narrative Resulting Agency Comment Performing Organization Information: ?Site ID: [place] ?Name: [facility] ?Address: [facility] [place] [address] ?Director: Julien Neville D.O., MPH Bernard [facility] BLOOD ORDERABLES Fi nal Result Performing Organization Address [facility]/ZIP Co de Phone Number [facility] [place] * Creatine kinase (CK), total (02/28/2019 12:32 PM CDT) CK 117 29 - 143 U/L [facility] [place] Blood specimen (specimen) 02/28/2019 12:32 PM CDT 02/28/2019 12:33 PM CDT Narrative Resulting Agency Comment Performing Organization Information: ?Site ID: [place] ?Name: [facility] ?Address: [facility] [place] [address] ?Director: Julien Neville D.O., MPH Bernard [facility] BLOOD ORDERABLES Fi nal Result Performing Organization Address [facility]/ZIP Co de Phone Number [facility] [place] * Comprehensive metabolic panel (02/28/2019 12:32 PM CDT) Glucose 85 65 - 99 mg/dL [facility] [place] Comment: ? Fasting reference interval BUN 9 7 - 25 mg/dL [facility] [place] Creatinine 0.67 0.50 - 1.05 mg/dL [facility] [place] Comment: For patients >49 years of age, the reference limit for Creatinine is approximately 13% higher for people identified as -Bahamian. eGFR NON-AFR. SURINAMESE 96 > OR = 60 mL/min/1 .73m2 [facility] [place] EGFR 112 > OR = 60 mL/min/1 .73m2 [facility] [place] BUN/creat ratio NOT APPLICABLE 6 - 22 (calc) [facility] [place] Sodium 139 135 - 146 mmol/L [facility] [place] Potassium, pl 4.3 3.5 - 5.3 mmol/L [facility] [place] Chloride 104 98 - 110 mmol/L [facility] [place] CO2 27 20 - 32 mmol/L [facility] [place] Calcium 9.6 8.6 - 10.4 mg/dL [facility] [place] Protein, sr 7.9 6.1 - 8.1 g/dL [facility] [place] Albumin 4.2 3.6 - 5.1 g/dL [facility] [place] GLOBULIN 3.7 1.9 - 3.7 g/dL (calc) [facility] [place] Alb/glob ratio 1.1 1.0 - 2.5 (calc) [facility] [place] Bilirubin, total 0.5 0.2 - 1.2 mg/dL [facility] [place] Alk phos 77 33 - 130 U/L [facility] [place] AST 18 10 - 35 U/L [facility] [place] ALT (SGPT) 17 6 - 29 U/L [facility] [place] Blood specimen (specimen) 02/28/2019 12:32 PM CDT 02/28/2019 12:33 PM CDT Narrative Resulting Agency Comment Performing Organization Information: ?Site ID: [place] ?Name: [facility] ?Address: [address] [place] [address] [place] [address] ?Director: Julien Neville D.O., MPH Bernard [facility] BLOOD ORDERABLES Fi nal Result [facility] [place] * (ABNORMAL) Complement, total (02/28/2019 12:32 PM CDT) Complement, total (CH50) >60(H) 31 - 60 U/mL [facility] [place] Blood specimen (specimen) 02/28/2019 12:32 PM CDT 02/28/2019 12:33 PM CDT Narrative Resulting Agency Comment Performing Organization Information: ?Site ID: [place] ?Name: [facility] ?Address: [facility] [place] [address] ?Director: Julien Neville D.O., MPH Bernard [facility] BLOOD ORDERABLES Fi nal Result [facility] [place] * (ABNORMAL) CBC with auto differential (02/28/2019 12:32 PM CDT) WBC 4.1 3.8 - 10.8 Thousand/u L [facility] [place] RBC, POC 5.00 3.80 - 5.10 Million/uL [facility] [place] Hgb 13.3 11.7 - 15.5 g/dL [facility] [place] Hct 42.0 35.0 - 45.0 % [facility] [place] MCV 84.0 80.0 - 100.0 fL [facility] [place] MCH 26.6(L) 27.0 - 33.0 pg [facility] [place] MCHC 31.7(L) 32.0 - 36.0 g/dL [facility] [place] Rdw 13.4 11.0 - 15.0 % [facility] [place] Platelets 210 140 - 400 Thousand/u L [facility] [place] MPV 10.3 7.5 - 12.5 fL [facility] [place] Neutrophils, abs 2,021 1,500 - 7,800 cells/uL [facility] [place] Lymphocytes, abs 1,615 850 - 3,900 cells/uL [facility] [place] Monocyte abs 295 200 - 950 cells/uL [facility] [place] Eosinophils, abs 139 15 - 500 cells/uL [facility] [place] Basophils, abs 29 0 - 200 cells/uL [facility] [place] Neutrophils 49.3 % [facility] [place] Lymphocyte pct 39.4 % [facility] [place] Monocytes 7.2 % [facility] [place] Eosinophils 3.4 % [facility] [place] Basophils 0.7 % [facility] [place] Blood specimen (specimen) 02/28/2019 12:32 PM CDT 02/28/2019 12:33 PM CDT Narrative Resulting Agency Comment Performing Organization Information: ?Site ID: [place] ?Name: [facility] ?Address: [address] [address] ?Director: Julien Neville D.O., MPH Bernard [facility] BLOOD ORDERABLES Fi nal Result Performing Organization Address City/[facility]/ZIP Co de Phone Number [facility] [place] * C4 complement (02/28/2019 12:32 PM CDT) Complement component C4C 43 15 - 57 mg/dL [facility] [place] Blood specimen (specimen) 02/28/2019 12:32 PM CDT 02/28/2019 12:33 PM CDT Narrative Resulting Agency Comment Performing Organization Information: ?Site ID: [place] ?Name: [facility] ?Address: [facility] [place] [address] ?Director: Julien Neville D.O., MPH Bernard [facility] BLOOD ORDERABLES Fi nal Result Performing Organization Address [facility] Co de Phone Number [facility] [place] * C3 complement (02/28/2019 12:32 PM CDT) Complement component C3C 160 83 - 193 mg/dL [facility] [place] Blood specimen (specimen) 02/28/2019 12:32 PM CDT 02/28/2019 12:33 PM CDT Narrative Resulting Agency Comment Performing Organization Information: ?Site ID: [place] ?Name: [facility] ?Address: [facility] [place] [address] ?Director: Julien Neville D.O., MPH Bernard [facility] BLOOD ORDERABLES Fi nal Result Performing Organization Address City/[facility] Co de Phone Number [facility] [place] * Aldolase (02/28/2019 12:32 PM CDT) ALDOLASE 4.2 < OR = 8.1 [facility] [place] Blood specimen (specimen) 02/28/2019 12:32 PM CDT 02/28/2019 12:33 PM CDT Narrative Resulting Agency Comment Performing Organization Information: ?Site ID: NOLAN ?Name: [facility] ?Address: [address] [address] ?Director: Julien Neville D.O., MPH us Bernard [facility] BLOOD ORDERABLES Fi nal Result [facility] [place] * AVISE - Miscellaneous Test (02/28/2019) Miscellaneous us Bernard PR[facility] BLOOD ORDERABLES Fi nal Result EXTERNAL LAB documented in this encounter Visit Diagnoses Diagnosis Polyarthralgia- Primary Pain in joint, multiple sites Fatigue, unspecified type Low back pain radiating to lower extremity documented in this encounter Historical Medications * This list may reflect changes made after this encounter. amitriptyline (ELAVIL) 25 mg tablet Take 25 mg by mouth nightly 3 02/08/[address] (CYMBALTA) 30 mg capsule TK ONE C PO D 2 01/11/2019 04/23/2019 added in this encounter Orders Imaging Orders Without Results Count Last Order ed Date First Ordered Date US HAND COMPLETE 1 02/28/2019 documented in this encounter Care Teams Gifted Teacher Relationship Specialty Start Date End Date Esperanza Ho MD [address] [place] [address] PCP - General Family Medicine 02/01/19 Montana Mendoza III, MD [address] [place] [address] Consulting Physician Rheumatology 02/01/19 documented as of this encounter
--- OUTSIDE RECORDS SUMMARY | 2024-08-26 07:56 | XMS_ITS | Encounter Summary ---
Author Organization [facility] Address [address] [place] [address] Care Team Providers Care Software Support Engineer Name Role Phone Unavailable Primary Care Provider Unavailabl e Encounter Details Date Type Department Care Team (Late st Contact Info) Description 03/23/2021 Orders Only [facility] LASTER [address] [place] [address] Rosendo Lees MD [address] [place] [address] Social History Tobacco Use Types Packs/Day Years Used Date Smoking Tobacco: Never Assessed Sex and Gender Information Value Date Recorded Sex Assigned at Not on file Gender Identity Not on file Sexual Orientation Not on file documented as of this encounter Plan of Treatment Not on file documented as of this encounter Procedures Procedure Name Priority Date/Time Associated Diagnosis Comments MAMMO 3D ELEANOR SCREEN BILAT W OR WO CAD Routine 03/21/2021 documented in this encounter Results * MAMMO SCRN BILAT 3D ELEANOR W OR WO CAD (03/21/2021) Anatomical Region Laterality Modality Breast Bilateral Other Rosendo Lees MD MAMMO ORDERABLES documented in this encounter Visit Diagnoses Not on filedocumented in this encounter
--- OUTSIDE RECORDS SUMMARY | 2024-08-26 07:56 | XMS_ITS | Clinical Summary ---
Author Organization [facility] Shelby Velasco Address [address] [facility] [place] [address] Phone Care Team Providers Care Electrical & Instrumentation Supervisor Name Role Phone Unavailable Primary Care Provider Unavailabl e Social History Tobacco Use Types Packs/Day Years Used Date Smoking Tobacco: Never Assessed Sex and Gender Information Value Date Recorded Sex Assigned at Not on file Gender Identity Not on file Sexual Orientation Not on file Plan of Treatment Health Maintenance Due Date Last Done Comments DTAP/TDAP/TD VACCINES (1 - Tdap) 1978 COLORECTAL SCREENING 2004 Colorectal Cancer Screening 2004 FIT-DNA Q 3 years 2004 FIT/FOBT Q 1 year 2004 Flex Sig/CT Colonography Q 5 years 2004 ZOSTER VACCINE (1 of 2) 2009 BREAST CANCER SCREENING 03/21/2022 03/21/2021 OSTEOPOROSIS SCREENING 2024 PNEUMOCOCCAL VACCINE 65+ YEARS (1 of 1 - PCV) 03/17/20 24 INFLUENZA VACCINE (#1) 2024 RSV VACCINE (60+ or ) (1 - 1-dose 75+ series) 2034 Procedures Procedure Name Priority Date/Time Associated Diagnosis Comments MAMMO 3D ELEANOR SCREEN BILAT W OR WO CAD Routine 03/21/2021 from Last 3 Months or Most Recently Relevant to Health Maintenance Results * MAMMO SCRN BILAT 3D ELEANOR W OR WO CAD (03/21/2021) Anatomical Region Laterality Modality Breast Bilateral Other Rosendo Lees MD MAMMO ORDERABLES from Last 3 Months or Most Recently Relevant to Health Maintenance
--- OUTSIDE RECORDS SUMMARY | 2024-08-26 07:57 | XMS_ITS | Encounter Summary ---
Author Organization [facility] Address [address] [place] [address] Care Team Providers Care Facility Technician Name Role Phone Unavailable Primary Care Provider Unavailabl e Encounter Details Date Type Department Care Team (Late st Contact Info) Description 01/06/2006 Outpatient Historical [facility] Support Serv. ([facility]) [address] [place] [address] Natacha Mujica MD Social History Tobacco Use Types Packs/Day [...]
--- OUTSIDE RECORDS SUMMARY | 2024-08-26 07:57 | XMS_ITS | Continuity of Care Document ---
Author Organization [facility] Address [address] [place] [address] Phone Care Team Providers Care Curing Supervisor Name Role Phone Brown Malone MD Unavailable Unavailable Allergies, Adverse Reactions, Alerts Substance Reaction Status Criticality No Known Allergies Active No Inform ation Medications Medication Instructions Dosage Effective Dates (start - stop) Status Comments sertraline 50 mg tablet take 1 tablet by oral route every day 50 MG - Active Vitamin D3 125 mcg (5,000 unit) tablet take 1 capsule by oral route 2 times every day 1 capsule - Active cetirizine 10 mg tablet take 1 tablet by oral route every day as needed for allergies 10 MG - Active latanoprost 0.005 % eye drops instill 1 drop by ophthalmic route every day into affected eye(s) in the evening 1.00 drop - Active fluticasone propionate 50 mcg/actuation nasal spray,suspension spray 1 - 2 spray by intranasal route every day in each nostril as needed 50-100 MCG - Active Centrum Women 18 mg-400 mcg tablet take 1 tablet by oral route every day with food 1.00 tablet - Active Procedures Procedure Date COMPREHEN METABOLIC PANEL CMP 2 LIPID PANEL ROUTINE VENIPUNCTURE PREVENTATIVE-EST: 40-64 BODY MASS INDEX DOCD SYST BP LT 130 MM HG DIAST BP 80-89 MM HG HEAD OR BRAIN CT W/O CONTRAST 2 OFFICE [id number] BODY MASS INDEX DOCD SYST BP >= 140 MM HG6 IT DIAST BP 80-89 MM HG COLONOSCOPY AND BIOPSY TISSUE EXAM BY PATHOLOGIST OFFICE ALGNI-BCN-CICETIWN BODY MASS INDEX DOCD SYST BP LT 130 MM HG DIAST BP < 80 MM HG Pt inelig neg scrn depres OFFICE [id number] BODY MASS INDEX DOCD SYST BP >= 140 MM HG6 IT DIAST BP < 80 MM HG COMPREHEN METABOLIC PANEL CMP LIPID PANEL THYROID STIMULATION HORMONE(TSH) 2020 ROUTINE VENIPUNCTURE PREVENTATIVE-NEW: 40-64 BODY MASS INDEX DOCD SYST BP >= 140 MM HG6 IT DIAST BP < 80 MM HG Advance Directives Directive Yes / No Effective Date File Name No Information Encounters Encounter Description Practice Location Reason(s) For Visit Diagnoses Date Provider Providers Copied on Encounter [facility], [address], [place], [place], [id number] , tel: [phone] [facility] No Information 4 Faisal Dasilva. [address] [place] [address], [id number] , [place]. tel: [phone] Referring Provider: Brown Malone, [address] [place] [address], [address] . tel:[phone] PREVENTATIVE -EST: 64 [facility], [address], [place], [place], [id number] , tel: [phone] [facility] Chronic Conditions (chief complaint) Adult general medical examColon cancer screeningEssential (primary) hypertension 2 Faisal Dasilva. [address] [place] [address], [id number] , . tel: [phone] Referring Provider: Brown Malone, [address] [place] [address], [address] . tel:[phone] [facility], [address] [place] [address], [id number] , tel: [phone] [facility] No Information 2 Carlozbalta Loja. [address] [place], [place], [id number] , [place]. tel: [phone] Referring Provider: Brown Malone, [address] [place] [address], [address] . tel:[phone] OFFICE YAKYO-TAX-KE PANDED [facility], [address] [facility], [place], [place], [id number] , tel: [phone] [facility] Chronic Conditions (chief complaint) Headache, unspecified 2 Faisal Dasilva. [address] [place] [address], [id number] , . tel: [phone] Referring Provider: Brown Malone, [address] [place] [address], [address] . tel:[phone] [facility], [address] [place] [address], [id number] , tel: [phone] [facility] No Information 1 Mark Sajidul. [address] [place] [address], [address], [id number] , . tel: [phone] Referring Provider: Brown Malone, [address] [place] [address], [address] . tel:[phone] [facility], [address] [place] [address], [id number] , tel: [phone] [facility] No Information 1 Mark Sajidul. [address], [address], [id number] , . tel: [phone] Referring Provider: Brown Malone, [address] [place] [address], [address] . tel:[phone] OFFICE SQMVR-WBH-CG TAILED [facility], [address], [place], [place], [id number] , tel: [phone] [facility] Chronic Conditions (chief complaint) Essential (primary) hypertensionMajor depressive disorder, recurrent, unspecified May-0 1 Faisal Dasilva. [address] [place] [address], [id number] , . tel: [phone] Referring Provider: Brown Malone, [address] [place] [address], [address] . tel:[phone] OFFICE DXUSA-FPH-UJ [facility], [address], [place], [place], [id number] , tel: [phone] [facility] Chronic Conditions (chief complaint) Major depressive disorder, recurrent, unspecifiedEssential hypertensionEncntr screen mammogram for malignant neoplasm of breast 1 Faisal Campbell [address] [place] [address], [id number] , . tel:[phone] Referring Provider: Brown Malone [address] [place] [address], [address] . tel:[phone] [facility], [address], [place], [place], [id number] , tel: [phone] [facility] Encntr for general adult medical exam w/o abnormal findings 1 Faisal Campbell [address] [place] [address], [id number] , . tel: [phone] Referring Provider: Brown Malone [address] [place] [address], [address] . tel:[phone] PREVENTATIVE -NEW: 40-64 [facility], [address] [place] [address], [id number] , tel: [phone] [facility] preventive exam (chief complaint) Colon cancer screeningAdult general medical examEncntr screen mammogram for malignant neoplasm of breastFamily history of aneurysm 1 Faisal Campbell [address] [place], [place], [id number] , . tel: [phone] Referring Provider: Brown Malone, [address] [facility], [place], [address] . tel:[phone] Family History Family Member Type Diagnosis Age At Onset Mother Problem Allergies Mother Problem malignant neopla sm of breast in first degree relative Father Problem Diabetes mellitus Father Problem alcoholism Father Problem Cardiovascular disease Mother Problem cancer of colon Father Problem hypertension Mother Problem hypertension Mother Problem migraine Payers Payer name Insurance type Covered green party ID Authoriza tion(s) No Information Social History Type Description Quantity Date Captured Comments Alcohol Use Details Unknown Caffeine Use Details Unknown Tobacco Use Status No Information Smoking Status No Information Sex Female Sexual Orientation Straight or heterosexual Gender Identity Female Chief Complaint And Reason For Visit No Information Reason For Referral Reason For Referral No Information Plan Of Treatment Date Type Action Status Referral Ordered: Echocardiogram, Doppler, complete ordered Referral Ordered: HEAD OR BRAIN CT W/O CONTRAST ordered Referral Ordered: Aortic ultrasound ordered Referral Ordered: SCREENING MAMMOGRAM (CAD) Bilateral breast ordered History Of Present Illness Encounter Date Complaint History Of Prese nt Illness Chronic Conditions *See Chronic Conditions HPI Chronic Conditions *See Chronic Conditions HPI Chronic Conditions *See Chronic Conditions HPI Chronic Conditions *See Chronic Conditions HPI preventive exam Pertinent negati ves include anxiety and depression.The patient states her exercise level is sedentary. Additional information: wants to do an exercise program, walks the dog 30 minutes, Transferring , lost touch, off sertraline since September 2020,. Functional Status Date Functional Assessmen t No Information Instructions Date Instruction Additional Infor mation due in 5 years Related to Colon cancer screening daily exercise discu ssed30 minute walk on non gym days20 grams of protein with each meal Related to Adult general medical exam monitor BP, weekly3 days a week to the gym, scheduled Related to Essential (primary) hypertension consistent with a wh iplash type injurymassage, and isometric exercise dailymuscle relaxers as neededcheck head CT Related to Headache, unspecified start a daily exerci se routine for one hourstart monitor calories, carbs and proteincalories 2000carbs limited except after 20g after exercise.protein 100-150 grams per daypossible dehydrationif the symptoms continue I recommend a heart monitorcheck heart rate and blood pressure if able Related to Essential (primary) hypertension goal blood pressure is less than 130/80ideal blood pressure is 120/70 monitor the blood pressure weekly and call in one month with the readings Related to Essential hypertension continue sertraline 50mg Related to Major depressive disorder, recurrent, unspecified I recommend an abdominal ultraso und Related to Family history of aneurysm GOVIND ALEGRIA MD [address] [address] P: F: Related to Colon cancer screening weight loss goals: a ctive lifestyle choices, routine daily exercise 45-60 minuteslimit saturated fats (cheese, processed meats) and refined carbohydrates (pasta, bread and sugar)be sure to eat enough protein to support muscle development, at least 50 grams a day, up to 100g a day would be advisable, use the increased appetite you'll get with exercise to eat more protein. Related to Adult general medical exam Assessments Type Assessment Date No Information Patient Care Teams Name Effective Dates (start - stop) Status Members No Information
--- OUTSIDE RECORDS SUMMARY | 2024-08-26 07:57 | XMS_ITS | Encounter Summary ---
Author Organization [facility] Address [address] [place] [address] Care Team Providers Care Track Grinder Name Role Phone Unavailable Primary Care Provider Christy e Encounter Details Date Type Department Care Team (Latest Contact Info) Description 01/05/2006 Outpatient Historical [facility] Taz Krishnamurthy MD [address] [place] [address] Ana Lilia Munoz MD [address] [facility] [address] [address] Unspecified Chest Pain (Primary Dx); Family History of Ischemic Heart Disease Social History Tobacco Use Types Packs/Day Years Used Date Smoking Tobacco: Never Assessed Sex and Gender Information Value Date Recorded Sex Assigned at Not on file Gender Identity Not on file Sexual Orientation Not on file documented as of this encounter Plan of Treatment Not on file documented as of this encounter Procedures Procedure Name Priority Date/Time Associated Diagnosis Comments TROPONIN Routine 01/06/2006 4:15 AM CDT TROPONIN (W/REFLEX CKMB/CK) Routine 01/05/2006 9:30 PM CDT CBC WITH DIFFERENTIAL Routine 01/05/2006 9:30 PM CDT CBC WITH DIFFERENTIAL Routine 01/05/2006 9:30 PM CDT documented in this encounter Results * TROPONIN (01/06/2006 4:15 AM CDT) TROPONIN T <0.01 <=0.03 ng/mL INTERFACE SYSTEM TROPONIN T INTERP Negative INTERFACE SYSTEM 01/06/2006 4:15 AM CDT Ana Lilia Munoz MD CHEMISTRY ORDERABLES Performing Organization Address [facility] Phone Number INTERFACE SYSTEM Refer to clinic/hospital department * TROPONIN (W/REFLEX CKMB/CK) (01/05/2006 9:30 PM CDT) TROPONIN T <0.01 <=0.03 ng/mL INTERFACE SYSTEM TROPONIN T INTERP Negative INTERFACE SYSTEM 01/05/2006 9:30 PM CDT Diandra Christian MD CHEMISTRY ORDERABLES Performing Organization Address [facility] Phone Number INTERFACE SYSTEM Refer to clinic/hospital department * CBC WITH DIFFERENTIAL (01/05/2006 9:30 PM CDT) NEUTROPHILS 52 45 - 70 % INTERFAC E SYSTEM LYMPHOCYTES 37 16 - 45 % INTERFAC E SYSTEM MONOCYTES 8 3 - 13 % INTERFACE SYSTEM EOSINOPHILS 2 0 - 7 % INTERFAC E SYSTEM BASOPHILS 0 0 - 2 % INTERFACE SYSTEM NEUTROPHIL ABSOLUTE 3.58 1.90 - 7.00 K/uL INTERFACE SYSTEM LYMPHOCYTE ABSOLUTE 2.56 0.70 - 4.50 K/uL INTERFACE SYSTEM MONOCYTE ABSOLUTE 0.58 0.10 - 1.30 K/uL INTERFACE SYSTEM EOSINOPHIL ABSOLUTE 0.16 0.00 - 0.70 K/uL INTERFACE SYSTEM BASOPHILS ABSOLUTE 0.02 0.00 - 0.20 K/uL INTERFACE SYSTEM 01/05/2006 9:30 PM CDT Diandra Christian MD HEMATOLOGY ORDERABLE S Performing Organization Address [facility] Phone Number INTERFACE SYSTEM Refer to clinic/hospital department * CBC WITH DIFFERENTIAL (01/05/2006 9:30 PM CDT) WBC 6.9 4.0 - 9.8 K/uL INTERFACE SYSTEM RBC 4.65 3.90 - 4.90 M/uL INTERFACE SYSTEM HEMOGLOBIN 12.7 11.8 - 14.8 g/dL INTERFACE SYSTEM HEMATOCRIT 39.3 35.5 - 44.0 % INTERFACE SYSTEM MCV 84.5 82.0 - 99.0 fL INTERFACE SYSTEM MCH 27.3 27.2 - 32.6 pg INTERFACE SYSTEM MCHC 32.3 31.5 - 35.5 % INTERFACE SYSTEM RDW 14.0 11.5 - 14.5 % INTERFACE SYSTEM RDW-STDEV 43.4 37.1 - 48.7 fL INTERFACE SYSTEM PLATELETS 235 140 - 350 K/uL INTERFACE SYSTEM MPV 10.6 9.3 - 12.4 fL INTERFACE SYSTEM 01/05/2006 9:30 PM CDT Diandra Christian MD HEMATOLOGY ORDERABLE S INTERFACE SYSTEM Refer to clinic/hospital department documented in this encounter Visit Diagnoses Diagnosis Chest pain, unspecified- Primary Family history of ischemic heart disease documented in this encounter
== END 2024-08-20 08:23 | disposition home or self-care (01) ==
PROVIDERS: PCP Family Medicine; Visit Provider Physician Assistant
DX: R07.9 Chest pain, unspecified (principal)
CPT/HCPCS: 93017

== ENCOUNTER 2025-04-23 16:13 | Inpatient (IN) | payer MEDICARE, SELFPAY ==
--- OUTSIDE RECORDS SUMMARY | 2025-02-04 19:00 | XMS_ITS | Continuity of Care Document ---
Author Organization [facility] Address [address] [place] [address] Phone Care Team Providers Care Relay Associate Name Role Phone Freedom Carty MD Unavailable Unavailable Allergies, Adverse Reactions, Alerts [...] OR BRAIN CT W/O CONTRAST 2 OFFICE ANETF-SLE-AQBHNCCK BODY MASS INDEX DOCD SYST BP >= 140 MM HG6 IT DIAST BP 80-89 MM HG COLONOSCOPY AND BIOPSY TISSUE EXAM BY PATHOLOGIST OFFICE [id number] BODY MASS INDEX DOCD SYST BP LT 130 MM HG DIAST BP < 80 MM HG Pt inelig neg scrn depres OFFICE [id number] BODY MASS INDEX DOCD SYST BP >= 140 MM HG6 IT DIAST BP < 80 MM HG COMPREHEN METABOLIC PANEL CMP LIPID PANEL THYROID STIMULATION HORMONE(TSH) 2020 ROUTINE VENIPUNCTURE PREVENTATIVE-NEW: - BODY MASS INDEX DOCD SYST BP >= 140 MM HG6 IT DIAST BP < 80 MM HG Advance Directives Directive Yes / No Effective Date File Name No Information Encounters Encounter Description Practice Location Reason(s) For Visit Diagnoses Date Provider Providers Copied on Encounter [facility], [address], [place], [place], [id number] , tel: [phone] [facility] No Information 5 Carloz Loja. [address], [place], [place], [id number] , [place]. tel: [phone] Referring Provider: Freedom Caryt, [address], [place], [address] . tel:[phone] PREVENTATIVE -EST: [facility], [address], [place], [place], [id number] , tel: [phone] [facility] Chronic Conditions (chief complaint) Adult general medical examColon cancer screeningEssential (primary) hypertension 2 [facility]. [address] [place] [address], [id number] , . tel: [phone] Referring Provider: Brown Malone, [address] [place] [address], [address] . tel:[phone] [facility], [address] [place] [address], [id number] , tel: [phone] [facility] No Information 2 Carlozbalta Loja. [address] [place], [place], [id number] , [place]. tel: [phone] Referring Provider: Brown Malone, [address] [place] [address], [address] . tel:[phone] OFFICE SERPZ-IVJ-VR PANDED [facility], [address] [address], [place], [place], [id number] , tel: [phone] [facility] Chronic Conditions (chief complaint) Headache, unspecified 2 Faisal Dasilva. [address] [place] [address], [id number] , . tel: [phone] Referring Provider: Brown Malone, [address] [place] [address], [address] . tel:[phone] [employer] [facility], [address] [place] [address], [id number] , tel: [phone] [facility] No Information 1 Mark Sajidul. [address] [place] [address], [id number] , . tel: [phone] Referring Provider: Brown Malone, [address] [place] [address], [address] . tel:[phone] [facility], [address], [id number] , tel: [phone] [facility] No Information 1 Mark Sajidul. [address] [place] [address], [address], [id number] , . tel: [phone] Referring Provider: Brown Malone, [address] [place] [address], [address] . tel:[phone] OFFICE [id number]-TSL-LM [facility], [address], [place], [place], [id number] , tel: [phone] [facility] Chronic Conditions (chief complaint) Essential (primary) hypertensionMajor depressive disorder, recurrent, unspecified May-0 1 Faisal Campbell [address] [place] [address], [id number] , . tel:[phone] Referring Provider: Brown Malone, [address] [place] [address], [address] . tel:[phone] OFFICE [id number]-BU TAILED [facility], [address] [facility], [place], [place], [id number] , tel: [phone] [facility] Chronic Conditions (chief complaint) Major depressive disorder, recurrent, unspecifiedEssential hypertensionEncntr screen mammogram for malignant neoplasm of breast 1 Faisal Campbell [address] [place] [address], [id number] , . tel:[phone] Referring Provider: Brown Malone [address] [place] [address], [address] . tel:[phone] [facility], [address] [facility] [facility], [place], [place], [id number] , [phone] [facility] Encntr for general adult medical exam w/o abnormal findings 1 Faisal Campbell [address] [place] [address], [id number] , . tel: [phone] Referring Provider: Brown Malone [address] [place] [address], [address] . tel:[phone] PREVENTATIVE -NEW: 40-64 [facility], [address] [facility], [place], [place], [id number] , tel: [phone] [facility] preventive exam (chief complaint) Colon cancer screeningAdult general medical examEncntr screen mammogram for malignant neoplasm of breastFamily history of aneurysm 1 Faisal Campbell [address] [place], [place], [id number] , . tel: [phone] Referring Provider: Brown Malone, [address] [facility], [place], [address] . tel:[phone] Family History Family Member Type Diagnosis Age At Onset Mother Problem Allergies Mother Problem malignant neopla sm of breast in first degree relative Father Problem Diabetes mellitus Father Problem alcoholism Father Problem Cardiovascular disease Mother Problem cancer of colon Father Problem hypertension Mother Problem hypertension Mother Problem migraine Payers Payer name Insurance type Covered constitution party ID Authoriza tion(s) No Information Social [...] Conditions HPI Chronic Conditions *See Chronic Conditions [facility] Chronic Conditions *See Chronic Conditions HPI preventive [...] of aneurysm GOVIND ALEGRIA MD [address] [place] [address] P: F: Related to Colon cancer screening [...]
[2025-04-23] VITALS (13 sets, daily range): BP systolic 137–187; BP diastolic 63–94; PULSE 74–98; RESP 16–22; TEMP 36.8; O2SAT 97–100
--- NOTE | ~2025-04-23 | CT_ITS ---
EXAMINATION: CT brain wo con DATE: 04/23/2025 17:13 INDICATION: Left-sided numbness TECHNIQUE: Computed tomography (CT) of the head was performed without intravenous contrast. The dose-length product was 681.00 mGy-cm. COMPARISON: None FINDINGS: No acute intracranial hemorrhage. No mass effect. No midline shift. No hydrocephalus. Tiny lacunar infarction versus Virchow-Seymour space in the medial left temporal lobe. No skull fracture. Visualized paranasal sinuses and mastoid air cells are clear. IMPRESSION: 1. No acute intracranial hemorrhage. 2. Tiny lacunar infarction of indeterminate age versus Virchow-Seymour space in the medial left temporal lobe. If of concern, consider a brain MRI for further assessment. Reviewed, dictated and finalized at location A. IMPRESSION: 1. No acute intracranial hemorrhage. 2. Tiny lacunar infarction of indeterminate age versus Virchow-Seymour space in t he medial left temporal lobe. If of concern, consider a brain MRI for further a ssessment.
--- NOTE | ~2025-04-23 | MR_ITS ---
EXAMINATION: MR brain/brain stem wo/w con DATE: 04/24/2025 13:36 INDICATION: Transient ischemic episode with left upper and lower limb tingling TECHNIQUE: Magnetic resonance imaging (MRI) of the brain and brainstem was performed without and with 20 mL Multihance intravenous contrast. Sequences included sagittal and axial T1-weighted SE, axial diffusion-weighted FS SE, axial 3D SWAN, axial T2-weighted FLAIR, and axial T2-weighted FSE. Postcontrast axial and coronal T1-weighted SE was obtained. Apparent diffusion coefficient (ADC) maps were created. COMPARISON: Head CT and CT angiogram dated 04/23/2025 and brain MR dated 01/28/15 FINDINGS: There are no areas of restricted diffusion to suggest acute infarction. No intracranial hemorrhage or abnormal intracranial mass lesion. There are scattered areas of nonspecific increased T2-weighted signal intensity in the cerebral white matter, predominantly involving the deep and periventricular whi te matter. There are no intraparenchymal signal abnormalities seen on the other pulse sequences. The ventricles are symmetric and normal in size. There are no abnormal extra-axial fluid collections. Flow voids are seen in the cerebral arteries on the T2-weighted sequences consistent with their expected patency. Visualized orbits and soft tissues are unremarkable. There are no areas of abnormal enhancement on the post contrast images. Moderate cervical spondylosis. IMPRESSION: 1. Mild scattered periventricular predominant nonspecific white matter T2 hyperintensity consistent with chronic small vessel ischemic disease. No acute intracranial process. Reviewed, dictated and finalized at location A. IMPRESSION: 1. Mild scattered periventricular predominant nonspecific white matter T2 hyper intensity consistent with chronic small vessel ischemic disease. No acute intra cranial process.
--- NOTE | ~2025-04-23 | CT_ITS ---
EXAMINATION: CTA brain carotid DATE: 04/23/2025 18:24 CDT INDICATION: Left arm, fluid in lower extremity tingling TECHNIQUE: Computed tomographic angiography (CTA) of the head was performed without and with 100 mL Omnipaque-350 intravenous contrast. CTA of the neck was performed with intravenous contrast. The dose-length product was 1132.17 mGy-cm. Maximum intensity projection and volume rendered 3D-reconstructions were created by the technologist on a separate workstation. Automated exposure control and iterative reconstruction technique were employed. COMPARISON: CT brain dated 04/23/2025. FINDINGS: HEAD CTA: There are codominant vertebral arteries. No evidence for aneurysm. No significant stenosis or occlusion. There is atherosclerosis in the cavernous segments of the internal carotid arteries. NECK CTA: There is mild atherosclerosis of the proximal internal carotid arteries without hemodynamically significant stenosis. No evidence for dissection. IMPRESSION: 1: No significant vascular abnormality of the head or neck. Reviewed, dictated and finalized at location A.
--- NOTE | ~2025-04-23 | XR_ITS ---
EXAMINATION: XR chest 1V portable 04/23/2025 17:31 INDICATION: Left-sided numbness PROCEDURE: AP portable chest COMPARISON: 12/02/2022 FINDINGS: The lungs are clear. The cardiomediastinal silhouette is within normal limits. There are no pleural effusions. There is no pneumothorax suspected. IMPRESSION: 1: NO ACUTE CARDIOPULMONARY DISEASE. Reviewed, dictated and finalized at location A.
--- OUTSIDE RECORDS SUMMARY | 2025-04-23 16:31 | XMS_ITS | Clinical Summary ---
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 Gender Identity Not on file Sexual Orientation Not on file Plan of Treatment Health Maintenance Due Date Last Done Comments DTAP/TDAP/TD VACCINES (1 - Tdap) 1978 COLORECTAL SCREENING 2004 Colorectal Cancer Screening 2004 FIT-DNA Q 3 years 2004 FIT/FOBT Q 1 year 2004 Flex Sig/CT Colonography Q 5 years 2004 PNEUMOCOCCAL VACCINE 50+ YEARS (1 of 1 - PCV) 03/17/20 09 ZOSTER VACCINE (1 of 2) 2009 BREAST CANCER SCREENING 03/21/2022 03/21/2021 OSTEOPOROSIS SCREENING 2024 INFLUENZA VACCINE (#1) 2025 RSV VACCINE (60+ or ) (1 - 1-dose 75+ series) 2034 Procedures Procedure Name Priority Date/Time Associated Diagnosis Comments MAMMO 3D ELEANOR SCREEN BILAT W OR WO CAD Routine 03/21/2021 from Last 3 Months or Most Recently Relevant to Health Maintenance Results * MAMMO SCRN BILAT 3D ELEANOR W OR WO CAD (03/21/2021) Anatomical Region Laterality Modality Breast Bilateral Mammography us Rosendo Lees MD MAMMO ORDERABLES Edited Result - Final from Last 3 Months or Most Recently Relevant to Health Maintenance
--- OUTSIDE RECORDS SUMMARY | 2025-04-23 16:31 | XMS_ITS | Clinical Summary ---
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
--- OUTSIDE RECORDS SUMMARY | 2025-04-23 16:31 | XMS_ITS | Encounter Summary ---
Author Organization [facility] Address [address] [place] [address] Care Team Providers Care Plastics Nurse Name Role Phone Unavailable Primary Care Provider Unavailabl e Encounter Details Date Type Department Care Team (Late st Contact Info) Description 01/06/2006 Outpatient Historical [facility] ([facility]t Cardiology[facility]) [address] 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
--- OUTSIDE RECORDS SUMMARY | 2025-04-23 16:31 | XMS_ITS | Clinical Summary ---
Author Organization [facility] [employer] Address [address] [place] [address] Care Team Providers Care E Business Manager Name Role Phone Esperanza Ho MD Primary Care Provider + Source Comments [facility] [employer],non-owned Affiliates and Associated Physician Practices is amultiple site organization consisting of ambulatory clinics and hospital sitesin [place], [place] and [place]. This disclosure is being madepursuant to the Care Everywhere program and may not contain all information available regarding this patient. Last updated 18.[facility] [facility] Allergies No known active allergies Medications * Be aware that medications may not be up to date on this document. Alwaysverify current medications with the patient. amitriptyline (ELAVIL) 25 MG tablet Take 25 mg by mouth at bedtime Active DULoxetine (CYMBALTA) 30 MG capsule Take 30 mg by mouth once daily Active senna-docusate (SENOKOT-S) 8.6-50 MG tablet Take 1 tablet by mouth 2 times daily 60 tablet 0 Active Additional Information Patient not taking.Reported on 04/15/2020 polyethylene glycol 3350 (MIRALAX) powder TAKE 17 GRAMS BY MOUTH ONCE DAILY 238 g 0 Active Additional Information Patient not taking.Reported on 04/15/2020 oxyCODONE-aceta minophen (PERCOCET) 10-325 MG tabletIndicatio ns:S/P lumbar spinal fusion Take 1 tablet by mouth every 4 hours as needed for Pain 42 tablet 0 Active Additional Information Patient not taking.Reported on 04/15/2020 zolpidem (AMBIEN) 10 MG tablet Take 10 mg by mouth at bedtime 0 Active gabapentin (NEURONTIN) 300 MG capsule Take 1 (one) capsule by mouth 3 times daily 90 capsule 2 1 Active Active Problems Problem Noted Date Diagnosed [...] at Not on file Legal Sex Female 1:51 PM CDT Gender Identity Not on file Sexual Orientation Not on file Last Filed Vital Signs Vital Sign Reading Time Taken Comments Blood Pressure 144/76 06/03/2020 2:04 PM CDT Pulse 85 06/03/2020 2:04 PM CDT Temperature 36.4 C (97.6 F) 06/03/2020 2:04 PM CDT Respiratory Rate 18 06/03/2020 2:04 PM CDT Oxygen Saturation 100% 06/03/2020 2:04 PM CDT Inhaled Oxygen Concentration - - Weight 99.3 kg (219 lb) 01/21/2021 3:57 PM CDT Height 167.6 cm (5' 6) 01/21/2021 3:57 PM CDT Body Mass Index [...] COLON CA SCREENING 1959 LIPID TESTING 1959 HEPATITIS C SCREENING 03/12/1977 DTAP/TDAP/TD VACCINES (1 - Tdap) 1978 PNEUMOCOCCAL VACCINE 50+ (1 of 1 - PCV) 2009 ZOSTER VACCINE (1 of 2) 2009 MAMMOGRAM 08/08/2022 08/08/2020, 06/26/2019 SCREENING FOR DIABETES 11/11/2022 0, 11/11/2019, 11/10/2019, Additional history exists COVID-19 VACCINE (2023- season) 2024 DEPRESSION SCREENING 09/05/2024 INFLUENZA VACCINE (#1) 2025 Respiratory Syncytial Virus (RSV) Vaccine Pt: or [...] patient's age to complete this topic MENINGOCOCCAL (Group B) VACCINE SHARED DECISION-MAKING Aged Out No longer eligible based on patient's age to complete this topic MENINGOCOCCAL GROUPS A/C/Y/W VACCINE Aged Out No longer eligible based on patient's age to complete this topic Medical Devices Implanted Type Area Hand Fur Cleaner Device Identifier Shelf Expiration Date Model / Serial / Lot Spcr Spnl 12mm Primtr 12d Lrdtc Lg Vert Implanted:Qty: 1 on 11/02/2019 by Sammy Carrero MD at [facility] N/A: Spine Lumbar Medtronic [employer] 02/17/2024 [id number] / / Graft Bone Infs Bvn Clgn Rhbmp-2 Sm 2.8 Implanted:Qty: 1 on 11/02/2019 by Sammy Carrero MD at [facility] N/A: Spine Lumbar Medtronic [employer] [id number] / / Spcr Spnl 12mm Primtr 12d Lrdtc Lg Vert Implanted:Qty: 1 on 11/02/2019 by Sammy Carrero MD at [facility] N/A: Spine Lumbar Medtronic [employer] [id number] / / Graft Bone Canc 4-9.5mm 30cc Algrf Frzdr Implanted:Qty: 1 on 11/02/2019 by Sammy Carrero MD at [facility] N/A: Spine Lumbar [employer] [id number] / / Screw Set Ti Spnl Brk Off Cd Hzn Nonster Implanted:Qty: 6 on 11/02/2019 by Sammy Carrero MD at [facility] N/A: Spine Medtronic [employer] [id number] / / Screw 6.5mm 40mm Ma Spne Solera Cd Hzn Implanted:Qty: 4 on 11/02/2019 by Sammy Carrero MD at [facility] N/A: Spine Medtronic [employer] [id number] / / Screw 7.5mm 40mm Ma Spne Solera Cd Hzn Implanted:Qty: 2 on 11/02/2019 by Sammy Carrero MD at [facility] N/A: Spine Medtronic [employer] [id number] / / Roger Spnl 70mm 5.5mm Cd Hzn Crv [place] Implanted:Qty: 2 on 11/02/2019 by Sammy Carrero MD at [facility] N/A: Spine [employer] Inc [id number] / / Procedures Procedure Name Priority Date/Time Associated Diagnosis Comments BASIC METABOLIC PANEL (CALCIUM TOTAL) AM Draw 11/12/2019 2:57 AM CDT from Last 3 Months or Most Recently Relevant to Health Maintenance Results * BASIC METABOLIC PANEL (CALCIUM TOTAL) (11/12/2019 2:57 AM CDT) BUN 7 7 - 26 mg/dL 11/12/2019 3:36 AM CDT [facility] Creatinine 0.7 0.6 - 1.2 mg/dL 11/12/2019 3:36 AM CDT [facility] Sodium 140 136 - 145 mmol/L 11/12/2019 3:36 AM CDT [facility] Potassium 4.1 3.5 - 4.5 mmol/L 11/12/2019 3:36 AM [facility] Chloride 105 98 - 107 mmol/L 11/12/2019 3:36 AM [facility] CO2 25 22 - 29 mmol/L 11/12/2019 3:36 AM [facility] Glucose 102 70 - 115 mg/dL 11/12/2019 3:36 AM [facility] Calcium 8.5 8.4 - 10.2 mg/dL 11/12/2019 3:36 AM [facility] Anion Gap 14 8 - 18 11/12/2019 3:36 AM [facility] BUN/Creatinine Ratio 10 7 - 23 11/12/2019 3:36 AM [facility] Osmolality Calculated 288 270 - 300 mOsm/kg 11/12/2019 3:36 AM [facility] eGFR >60 >60 mL/min/1.7 3 m2 11/12/2019 3:36 AM [facility] Blood BLOOD SPECIMEN / Unknown Lab Venipuncture / Unknown 11/12/2019 2:57 AM CDT 11/12/2019 3:10 AM T Julien Bullock Jr., MD LAB - CHEMISTRY ORDERA BLES Final Result Performing Organization Address City/State/[facility] Co de Phone Number [facility] [address] [place] [address] from Last 3 Months or Most Recently Relevant to Health Maintenance Insurance [facility] Advance Directives * Full Code (Latest Code Status on File) Date Activated Date Inactivated Comments 11/01/2019 2:49 PM 11/12/2019 9:11 PM Care Teams E Business Manager Relationship Specialty Start Date End Date Esperanza Ho MD [address] [place] [address] PCP - General 04/10/19
--- OUTSIDE RECORDS SUMMARY | 2025-04-23 16:31 | XMS_ITS | Encounter Summary ---
Author Organization [employer] Address [address] [place] [address] Care Team Providers Care Solid Waste Facility Operator Name Role Phone Unavailable Primary Care Provider Christy e Encounter Details Date Type Department Care Team (Latest Contact Info) Description 01/05/2006 Outpatient Historical [facility] Taz Krishnamurthy MD [address] [place] [address] Ana Lilia Munoz MD [address] [address] Unspecified Chest Pain (Primary Dx); Family History of Ischemic Heart Disease Social History Tobacco Use Types Packs/Day Years Used Date Smoking Tobacco: Never Assessed Comments Unknown Sex and Gender Information Value Date Recorded Sex Assigned at Not on file Legal Sex Female 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 Gender Identity Not on file Sexual Orientation [...] Negative INTERFACE SYSTEM 01/06/2006 4:15 AM CDT us Ana Lilia Munoz MD CHEMISTRY ORDERABLES Final Res ult Performing Organization Address [facility] Phone Number INTERFACE SYSTEM Refer to clinic/hospital department * TROPONIN (W/REFLEX CKMB/CK) (01/05/2006 9:30 PM CDT) TROPONIN T <0.01 <=0.03 ng/mL INTERFACE SYSTEM TROPONIN T INTERP Negative INTERFACE SYSTEM 01/05/2006 9:30 PM CDT us Diandra Christian MD CHEMISTRY ORDERABLES Final Resul t Performing Organization Address [facility] Phone Number INTERFACE SYSTEM Refer to clinic/hospital [...] K/uL INTERFACE SYSTEM 01/05/2006 9:30 PM CDT us Diandra Christian MD HEMATOLOGY ORDERABLES Final Resu lt Performing Organization Address [facility] Phone Number INTERFACE SYSTEM Refer to clinic/hospital [...] fL INTERFACE SYSTEM 01/05/2006 9:30 PM CDT us Diandra Christian MD HEMATOLOGY ORDERABLES Final Resu lt INTERFACE SYSTEM Refer to clinic/hospital department documented in this encounter Visit Diagnoses Diagnosis Chest pain, unspecified- Primary Family history of ischemic heart disease documented in this encounter
--- NOTE | 2025-04-23 16:44 | ECG_ITS ---
Test Date: 2025-04-23 17:19:31 Measurements Intervals [place] Rate: 90 P: 61 IA: 112 QRS: 15 QRSD: 93 T: 22 QT: 353 QTc: 433 Interpretive Statements SINUS RHYTHM WITH SHORT IA INTERVAL BORDERLINE ST ABNORMALITY- ANTEROLATERAL LEADS BORDERLINE ECG No previous ECG available for comparison Electronically Signed On 04-23-2025 19:09:11 CDT by Emre Gay D.O.
[2025-04-23 17:08] LABS: Hematocrit 42.0 % (37.0-47.0); Hemoglobin 13.0 g/dL (12.0-15.0); Immature Granulocyte Percent A 0.3 % (0-0.5); Lymphocytes Absolute Auto 2.79 K/mm3 (0.9-3.2); Mean Corpuscular HGB Conc 31.0 g/dl (32-36); Mean Corpuscular Hemoglobin 26.7 pg (26-34); Mean Corpuscular Volume 86.2 fl (80-100); Nucleated Red Blood Cells Absolute Auto 0.000 K/mm3 (0.0-0.012); Nucleated Red Blood Cells Perc 0.0 % (0.0-0.2); Platelet Count Result 203 k/mm3 (150-375); Red Blood Count 4.87 M/mm3 (4.2-5.4); White Blood Count 6.7 K/mm3 (4.5-10.0)
[2025-04-23 17:26] LABS: INR 1.0; Prothrombin Time 13.2 Seconds (11.1-14.7)
[2025-04-23 17:27] LABS: Partial Thromboplastin Time 26.7 Seconds (22.3-36.8)
--- NOTE | 2025-04-23 17:51 | ED_ITS ---
HPI - Neuro Symptoms/Deficit General Chief Complaint: Neuro Symptoms/Deficit <ROC Farah Last Filed: 04/23/25 23:33> Stated Complaint: left toe tingling, cold to left arm, lips numb <ROC Farah Last Filed: 04/23/25 23:33> Time Seen by Provider: 04/23/25 17:04 <ROC Farah Last Filed: 04/23/25 23:33> Source: patient <ROC Farah Last Filed: 04/23/25 23:33> Mode of arrival: ambulatory <ROC Farah Filed: 04/23/25 23:33> Limitations: no limitations <ROC Farah Filed: 04/23/25 23:33> History of Present Illness HPI Narrative: Patient is a 65 y/o female who presents to the ED with c/o L arm/leg tingling. Patient reports she woke up this morning with a tingling/asleep sensation in her L lower leg/foot and L arm. States she was normal last night when she went to sleep. Also reports a cold sensation of her left arm. Denies weakness of her left arm or leg. Denies headache, vision changes, dizziness, lightheadedness, chest pain, shortness of breath, slurred speech, confusion, difficulty ambulating. Patient does not currently take any medications. <ROC Farah Last Filed: 04/23/25 23:33> Related Data Home Medications: Home Medications ?Medication ?Instructions ?Recorded ?Confirmed ?Last Taken ?Type multivitamin (Daily Multi-Vitamin 1 tablet PO DAILY 04/24/25 04/23/25 History tablet) <ROC Farah Last Filed: 04/23/25 23:33> Allergies/Adverse Reactions: Allergies Allergy/AdvReac Type Severity Reaction Status Date / Time No Known Allergies Allergy Verified 04/23/25 16:24 <ROC Farah Last Filed: 04/23/25 23:33> Review of Systems 2 Review of Systems: All systems reviewed & are unremarkable except as noted in HPI. <Awilda Moreira PA-C - Last Filed: 04/23/25 23:33> All systems reviewed & are unremarkable except as noted in HPI and below < Awilda Moreira PA-C - Last Filed: 04/23/25 23:33> [facility] Past Medical History Medical History: Medical History Ankylosing spondylitis Positive OLEG (antinuclear antibody) Polyp of vocal cord or larynx Vocal cord dysfunction Chronic pain syndrome Primary fibromyalgia Spinal stenosis at L4-L5 level <Awilda Moreira PA-C - Last Filed: 04/23/25 23:33> Surgical History Surgical History: Surgical History History of vocal cord polypectomy S/P lumbar fusion <Awilda Moreira PA-C - Last Filed: 04/23/25 23:33> Family History Family History: Family History (Updated 04/24/25 @ 01:31 by Addie Langley RN) Mother Heart failure Other Parents <Awilda Moreira PA-C - Last Filed: 04/23/25 23:33> Social History Social History: Social History Social History: Years smoked: 3 Smoking status: Never smoker Tobacco type: cigarettes Second hand tobacco smoke exposure: No Smoking end date: 09/05/69 Alcohol intake: never Alcohol use details: Occasionally Substance use: never Substance use type: does not use Do You Feel Safe in your Home?: Yes Lack of Transportation: No Lack of Food: Never True Current Housing: I Have Housing Concerned About Future Housing: No Difficulty Paying Gas/Electric Bills: No Difficulty Paying for Meds: No Currently Unemployed: No Education: High School Diploma/GED Difficulty w/ Childcare or Family Care: No Living arrangements: with family Occupation/Education: occupation Gender identity (if verbalized by the patient): Female Sexual Orientation (if Verbalized by the Patient): Straight or Heterosexual Spiritual care concerns: No <Awilda Moreira PA-C - Last Filed: 04/23/25 23:33> Exam 2 Narrative: GENERAL: Well appearing, obese with BMI of 35.7, non-toxic, in no acute distress. HEAD: Normocephalic, atraumatic. EYES: PERRL/EOMI, conjunctivae clear bilaterally. No nystagmus. NECK: Supple. No meningeal signs. RESPIRATORY: Airway patent, respirations nonlabored. Clear to auscultation bilaterally, no rales, rhonchi, wheezing. CARDIOVASCULAR: Regular rate and rhythm without murmurs, rubs, or gallops. Peripheral pulses 2+ and equal bilaterally. MUSCULOSKELETAL: Moves all extremities. No gross deformities. No peripheral edema. SKIN: Warm, dry, normal color. No rashes. NEURO: A&O X3. Speech clear. Follows commands. CN II-XII intact. Sharp and dull sensation is intact throughout all extremities, symmetric bilaterally. Steady gait. No ataxic movements. Strength 5/5 in upper and lower extremities bilaterally. [id number] testing intact bilaterally. No pronator drift. Equal tumblers supervisor strength bilaterally. PSYCHIATRIC: Appropriate mood and affect. Normal interaction. <Awilda Moreira PA-C - Last Filed: 04/23/25 23:33> Course Course Emergency Course: This visit was performed by both a physician and an APC. I performed all aspects of the MDM as documented. <Colin Moran MD - Last Filed: 04/24/25 04:02> Vital Signs Vital signs: Vital Signs Temperature 98.2 F 04/23/25 16:20 Pulse Rate 98 04/23/25 16:20 Respiratory Rate 16 04/23/25 16:20 Blood Pressure 187/91 H 04/23/25 16:20 Pulse Oximetry 98 04/23/25 16:20 Temperature 98.1 F 04/24/25 01:31 Pulse Rate 76 04/24/25 01:31 Respiratory Rate 18 04/24/25 01:31 Blood Pressure 153/82 H 04/24/25 01:31 Pulse Oximetry 100 04/24/25 01:31 <Awilda Moreira PA-C - Last Filed: 04/23/25 23:33> Vital Signs Temperature 98.2 F 04/23/25 16:20 Pulse Rate 98 04/23/25 16:20 Respiratory Rate 16 04/23/25 16:20 Blood Pressure 187/91 H 04/23/25 16:20 Pulse Oximetry 98 04/23/25 16:20 Temperature 98.1 F 04/24/25 01:31 Pulse Rate 76 04/24/25 01:31 Respiratory Rate 18 04/24/25 01:31 Blood Pressure 153/82 H 04/24/25 01:31 Pulse Oximetry 100 04/24/25 01:31 <Colin Moran MD - Last Filed: 04/24/25 04:02> MDM - Neuro Symptoms/Deficit MDM Narrative Medical decision making narrative: Patient presented to ED with subjective numbness/tingling/asleep sensation to left leg and left arm that began this morning upon waking. Patient's last normal was last night. Patient is out of the window for any thrombolytics if this was a CVA. Patient mildly hypertensive upon arrival. It appears she does have a previous history of hypertension and had been on amlodipine at 1 point, however patient reports she does not currently take any medications. She states she does follow with a physician. Vital signs are otherwise stable. Patient is otherwise in no acute distress. She is neurologically intact upon my evaluation. No objective sensory deficits on exam. No strength discrepancies. No appreciable focal deficits. EKG with sinus rhythm, no concerning ST changes. Basic laboratory studies are unremarkable. Chest x-ray is clear CT brain: IMPRESSION: 1. No acute intracranial hemorrhage. 2. Tiny lacunar infarction of indeterminate age versus Virchow-Seymour space in the medial left temporal lobe. If of concern, consider a brain MRI for further assessment. CTA brain/carotids obtained: Negative Discussed case with Dr. Gonzalez, neurology, concerned for TIA, recommended admission for ECHO/MRI. Discussed case with Dr. Ashby, hospitalist, accepted patient for admission. Patient in agreement with plan and admission. - This visit was performed by both a physician and an APC. I performed all aspects of the MDM as documented. <Awilda Moreira PA-C - Last Filed: 04/23/25 23:33> Patient presented to ED with subjective numbness/tingling/asleep sensation to left leg and left arm that began this morning upon waking. Patient's last normal was last night. Patient is out of the window for any thrombolytics if this was a CVA. Patient mildly hypertensive upon arrival. It appears she does have a previous history of hypertension and had been on amlodipine at 1 point, however patient reports she does not currently take any medications. She states she does follow with a physician. Vital signs are otherwise stable. Patient is otherwise in no acute distress. She is neurologically intact upon my evaluation. No objective sensory deficits on exam. No strength discrepancies. No appreciable focal deficits. EKG with sinus rhythm, no concerning ST changes. Basic laboratory studies are unremarkable. Chest x-ray is clear CT brain: IMPRESSION: 1. No acute intracranial hemorrhage. 2. Tiny lacunar infarction of indeterminate age versus Virchow-Seymour space in the medial left temporal lobe. If of concern, consider a brain MRI for further assessment. CTA brain/carotids obtained: Negative Discussed case with Dr. Gonzalez, neurology, concerned for TIA, recommended admission for ECHO/MRI. This visit was performed by both a physician and an APC. I performed all aspects of the MDM as documented. <Colin Moran MD - Last Filed: 04/24/25 04:02> Medical Records Attestation: I reviewed the patient's medical records. <Awilda Moreira PA-C - Last Filed: 04/23/25 23:33> Lab Data Attestation: I reviewed the patient's lab results. <Awilda Moreira PA-C - Last Filed: 04/23/25 23:33> Result diagrams: 04/23/25 17:01 04/23/25 17:01 <Awilda Moreira PA-C - Last Filed: 04/23/25 23:33> Labs: Lab Results 04/23/25 04/23/25 Range/Units 16:51 17:01 WBC 6.7 (4.5-10.0) K/mm3 RBC 4.87 (4.2-5.4) M/mm3 Hgb 13.0 (12.0-15.0) g/dL Hct 42.0 (37.0-47.0) % MCV 86.2 (80-100) fl MCH 26.7 (26-34) pg MCHC 31.0 L (32-36) g/dl RDW 14.4 (11.5-14.5) % Plt Count 203 (150-375) k/mm3 MPV 9.9 (7.4-10.4) fl Immature Gran % (Auto) 0.3 (0-0.5) % Neut % (Auto) 44.4 L (45.5-73.1) % Lymph % (Auto) 41.9 (18.3-44.2) % Briscoe % (Auto) 10.5 H (2.6-8.5) % Eos % (Auto) 2.6 (0-4.4) % Baso % (Auto) 0.3 (0.2-1.2) % Lymph # (Auto) 2.79 (0.9-3.2) K/mm3 Briscoe # (Auto) 0.7 H (0.1-0.6) K/mm3 Eos # (Auto) 0.2 (0-0.3) K/mm3 Baso # (Auto) 0.0 (0.0-0.1) K/mm3 Abs Immat Gran (auto) 0.02 (0.00-0.031) K/mm3 Absolute Neuts (auto) 3.0 (1.3-6.7) K/mm3 Absolute Nucleated RBC 0.000 (0.0-0.012) K/mm3 Nucleated RBC % 0.0 (0.0-0.2) % PT 13.2 (11.1-14.7) Seconds INR 1.0 APTT 26.7 (22.3-36.8) Seconds Sodium 139 (137-145) mmol/L Potassium 3.9 (3.4-5.0) mmol/L Chloride 105 (98-107) mmol/L Carbon Dioxide 25 (22-30) mmol/L Anion Gap 9 (4-12) mmol/L BUN 18 H (7-17) mg/dL Creatinine 0.83 (0.7-1.0) mg/dL Estim Creat Clear Calc 70 ml/min Estimated GFR > 60 (59 - ) Glucose 90 (65-110) mg/dL POC Capillary Glucose 103 (65-105) mg/dl Calcium 9.5 (8.4-10.2) mg/dL Total Bilirubin 0.4 (0.2-1.3) mg/dL AST 33 (14-36) U/L ALT 24 (6-35) U/L Alkaline Phosphatase 81 (38-126) U/L Troponin I < 0.012 (0.000-0.034) ng/mL Total Protein 8.5 H (6.3-8.2) g/dL Albumin 4.3 (3.5-5.1) g/dL <Awilda Moreira PA-C - Last Filed: 04/23/25 23:33> Lab Results 04/23/25 04/23/25 Range/Units 16:51 17:01 WBC 6.7 (4.5-10.0) K/mm3 RBC 4.87 (4.2-5.4) M/mm3 Hgb 13.0 (12.0-15.0) g/dL Hct 42.0 (37.0-47.0) % MCV 86.2 (80-100) fl MCH 26.7 (26-34) pg MCHC 31.0 L (32-36) g/dl RDW 14.4 (11.5-14.5) % Plt Count 203 (150-375) k/mm3 MPV 9.9 (7.4-10.4) fl Immature Gran % (Auto) 0.3 (0-0.5) % Neut % (Auto) 44.4 L (45.5-73.1) % Lymph % (Auto) 41.9 (18.3-44.2) % Briscoe % (Auto) 10.5 H (2.6-8.5) % Eos % (Auto) 2.6 (0-4.4) % Baso % (Auto) 0.3 (0.2-1.2) % Lymph # (Auto) 2.79 (0.9-3.2) K/mm3 Briscoe # (Auto) 0.7 H (0.1-0.6) K/mm3 Eos # (Auto) 0.2 (0-0.3) K/mm3 Baso # (Auto) 0.0 (0.0-0.1) K/mm3 Abs Immat Gran (auto) 0.02 (0.00-0.031) K/mm3 Absolute Neuts (auto) 3.0 (1.3-6.7) K/mm3 Absolute Nucleated RBC 0.000 (0.0-0.012) K/mm3 Nucleated RBC % 0.0 (0.0-0.2) % PT 13.2 (11.1-14.7) Seconds INR 1.0 APTT 26.7 (22.3-36.8) Seconds Sodium 139 (137-145) mmol/L Potassium 3.9 (3.4-5.0) mmol/L Chloride 105 (98-107) mmol/L Carbon Dioxide 25 (22-30) mmol/L Anion Gap 9 (4-12) mmol/L BUN 18 H (7-17) mg/dL Creatinine 0.83 (0.7-1.0) mg/dL Estim Creat Clear Calc 70 ml/min Estimated GFR > 60 (59 - ) Glucose 90 (65-110) mg/dL POC Capillary Glucose 103 (65-105) mg/dl Calcium 9.5 (8.4-10.2) mg/dL Total Bilirubin 0.4 (0.2-1.3) mg/dL AST 33 (14-36) U/L ALT 24 (6-35) U/L Alkaline Phosphatase 81 (38-126) U/L Troponin I < 0.012 (0.000-0.034) ng/mL Total Protein 8.5 H (6.3-8.2) g/dL Albumin 4.3 (3.5-5.1) g/dL <Colin Moran MD - Last Filed: 04/24/25 04:02> Imaging Data Attestation: I personally reviewed and interpreted this imaging study as follows: < Awilda Moreira PA-C - Last Filed: 04/23/25 23:33> Radiologist's impression: ITS Impressions Head CT 04/23/25 17:22 IMPRESSION: 1. No acute intracranial hemorrhage. 2. Tiny lacunar infarction of indeterminate age versus Virchow-Seymour space in the medial left temporal lobe. If of concern, consider a brain MRI for further assessment. Chest X-Ray 04/23/25 17:36 IMPRESSION: 1: NO ACUTE CARDIOPULMONARY DISEASE. Head/Neck CTA 04/23/25 18:24 IMPRESSION: 1: No significant vascular abnormality of the head or neck. <Awilda Moreira PA-C - Last Filed: 04/23/25 23:33> ECG Data EKG #1: Attestation: I personally reviewed and interpreted this ECG as follows: <Awilda Moreira PA-C - Last Filed: 04/23/25 23:33> ECG completion date: 04/23/25 <Awilda Moreira PA-C - Last Filed: 04/23/25 23:33> ECG completion time: 17:19 <Awilda Moerira PA-C - Last Filed: 04/23/25 23:33> EKG Interpretation: normal rate (90), sinus rhythm (short WA interval) and no ST changes <Awilda Moreira PA-C - Last Filed: 04/23/25 23:33> Discharge Plan Discharge Clinical Impression: Paresthesia of left arm and leg <Awilda Moreira PA-C - Last Filed: 04/23/25 23:33> Patient Disposition: Still a Patient <Awilda Moreira PA-C - Last Filed: 04/23/25 23:33> Condition: Stable <Awilda Moreira PA-C - Last Filed: 04/23/25 23:33> Time of Disposition: 21:02 <Awilda Moreira PA-C - Last Filed: 04/23/25 23:33> 21:02 <Colin Moran MD - Last Filed: 04/24/25 04:02>
[2025-04-23 17:57] LABS: Alanine Aminotransferase 24 U/L (6-35); Albumin Level 4.3 g/dL (3.5-5.1); Alkaline Phosphatase 81 U/L (38-126); Anion Gap 9 mmol/L (4-12); Aspartate Amino Transferase 33 U/L (14-36); Bilirubin,Total 0.4 mg/dL (0.2-1.3); Blood Urea Nitrogen 18 mg/dL (7-17); Calcium 9.5 mg/dL (8.4-10.2); Carbon Dioxide 25 mmol/L (22-30); Chloride 105 mmol/L (98-107); Estimated CRCL calculation 70 ml/min; Estimated Glomerular Filt Rate > 60; Glucose 90 mg/dL (65-110); Potassium 3.9 mmol/L (3.4-5.0); Sodium 139 mmol/L (137-145); Total Protein 8.5 g/dL (6.3-8.2)
[2025-04-23 18:08] LABS: Troponin I < 0.012 ng/mL (0.000-0.034)
[2025-04-23] MEDS: ASPIRIN 81 MG CHEWABLE TABLET 324 MG PO (19:28)
--- OUTSIDE RECORDS SUMMARY | 2025-04-23 21:17 | XMS_ITS | Clinical Summary ---
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
--- OUTSIDE RECORDS SUMMARY | 2025-04-23 21:17 | XMS_ITS | Clinical Summary ---
Author Organization [facility] Address [address] [place] [address] Care Team Providers Care Valet Runner Name Role Phone Esperanza Ho MD Primary Care Provider + Source Comments [facility],non-owned Affiliates and Associated Physician Practices is amultiple site organization consisting of ambulatory clinics and hospital sitesin [place], [place], [place] and [place]. This disclosure is being madepursuant to the Care Everywhere program and may not contain all information available regarding this patient. Last updated 18.[facility] Allergies No known active allergies Medications * [...] this topic Medical Devices Implanted Type Area Senior Oracle Applications Developer Device Identifier Shelf Expiration Date Model / Serial / Lot Spcr Spnl 12mm Primtr 12d Lrdtc Lg Vert Implanted:Qty: 1 on 11/02/2019 by Sammy Carrero MD at [facility] N/A: Spine Lumbar Medtronic [employer] 02/17/2024 [id number] / / Graft Bone Infs Bvn Clgn Rhbmp-2 Sm 2.8 Implanted:Qty: 1 on 11/02/2019 by Sammy Carrero MD at [facility] N/A: Spine Lumbar Medtronic [employer] [id number] / / Spcr Spnl 12mm Primtr 12d Lrdtc Lg Vert Implanted:Qty: 1 on 11/02/2019 by Sammy Carrero MD at [facility] N/A: Spine Lumbar Medtronic [employer] [id number] / / Graft Bone Canc 4-9.5mm 30cc Algrf Frzdr Implanted:Qty: 1 on 11/02/2019 by Sammy Carrero MD at [facility] N/A: Spine Lumbar [employer]ource [id number] / / Screw Set Ti Spnl Brk Off Cd Hzn Nonster Implanted:Qty: 6 on 11/02/2019 by Sammy Carrero MD at [facility] N/A: Spine Medtronic [employer] [id number] / / Screw 6.5mm 40mm Ma Spne Solera Cd Hzn Implanted:Qty: 4 on 11/02/2019 by Sammy Carrero MD at [facility] N/A: Spine Medtronic [employer] [id number] / / Screw 7.5mm 40mm Ma Spne Solera Cd Hzn Implanted:Qty: 2 on 11/02/2019 by Sammy Carrero MD at [facility] N/A: Spine Medtronic [employer] [id number] / / Roger Spnl 70mm 5.5mm Cd Hzn Crv Cocrmo Implanted:Qty: 2 on 11/02/2019 by Sammy Carrero MD at [facility] N/A: Spine Medtronic Inc [id number] / / Procedures Procedure Name Priority Date/Time Associated Diagnosis Comments BASIC METABOLIC PANEL (CALCIUM TOTAL) AM Draw 11/12/2019 2:57 AM CDT from Last 3 Months or Most Recently Relevant to Health Maintenance Results * BASIC METABOLIC PANEL (CALCIUM TOTAL) (11/12/2019 2:57 AM CDT) BUN 7 7 - 26 mg/dL 11/12/2019 3:36 AM CDT [facility] Creatinine 0.7 0.6 - 1.2 mg/dL 11/12/2019 3:36 AM CDT [facility] Sodium 140 136 - 145 mmol/L 11/12/2019 3:36 AM CDT [facility] Potassium 4.1 3.5 - 4.5 mmol/L 11/12/2019 3:36 AM [facility] Chloride 105 98 - 107 mmol/L 11/12/2019 3:36 AM [facility] CO2 25 22 - 29 mmol/L 11/12/2019 3:36 AM [facility] Glucose 102 70 - 115 mg/dL 11/12/2019 3:36 AM [facility] Calcium 8.5 8.4 - 10.2 mg/dL 11/12/2019 3:36 AM [facility] Anion Gap 14 8 - 18 11/12/2019 3:36 AM [facility] BUN/Creatinine Ratio 10 7 - 23 11/12/2019 3:36 AM [facility] Osmolality Calculated 288 270 - 300 mOsm/kg 11/12/2019 3:36 AM [facility] eGFR >60 >60 mL/min/1.7 3 m2 11/12/2019 3:36 AM [facility] Blood BLOOD SPECIMEN / Unknown Lab Venipuncture / Unknown 11/12/2019 2:57 AM CDT 11/12/2019 3:10 AM T Julien Bullock Jr., MD LAB - CHEMISTRY ORDERA BLES Final Result Performing Organization Address City/State/[facility] Co de Phone Number [facility] [address] [place] [address] from Last 3 Months or Most Recently Relevant to Health Maintenance Insurance [facility] Advance Directives * Full Code (Latest Code Status on File) Date Activated Date Inactivated Comments 11/01/2019 2:49 PM 11/12/2019 9:11 PM Care Teams Valet Runner Relationship Specialty Start Date End Date Esperanza Ho MD [address] [place] [address] PCP - General 04/10/19
--- OUTSIDE RECORDS SUMMARY | 2025-04-23 21:17 | XMS_ITS | Encounter Summary ---
Author Organization [employer] Address [address] [place] [address] Care Team Providers Care Public Relations Account Supervisor Name Role Phone Unavailable Primary Care Provider Christy e Encounter Details Date Type Department Care Team (Latest Contact Info) Description 01/05/2006 Outpatient Historical [facility] Taz Krishnamurthy MD [address] [place] [address] Ana Lilia Munoz MD [address] [address] Unspecified Chest Pain (Primary Dx); Family History of Ischemic Heart Disease Social History Tobacco Use Types Packs/Day Years Used Date Smoking Tobacco: Never Assessed Comments Unknown Sex and Gender Information Value Date Recorded Sex Assigned at Not on file 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 Phone Number INTERFACE SYSTEM Refer to clinic/hospital department * TROPONIN (W/REFLEX CKMB/CK) (01/05/2006 9:30 PM CDT) TROPONIN T <0.01 <=0.03 ng/mL INTERFACE SYSTEM TROPONIN T INTERP Negative INTERFACE SYSTEM 01/05/2006 9:30 PM CDT us Diandra Christian MD CHEMISTRY ORDERABLES Final Resul t Performing Organization Address [facility] Phone Number INTERFACE SYSTEM Refer to [...] ORDERABLES Final Resu lt Performing Organization Address [facility] Phone Number INTERFACE SYSTEM Refer to [...]
--- OUTSIDE RECORDS SUMMARY | 2025-04-23 21:18 | XMS_ITS | Clinical Summary ---
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 HMO/PPO Address: [address] [address] [place] [address] [facility] HMO/PPO Address: [address] [place] [address] [facility] HMO/PPO Address: [address] [place] [address] Care Teams Medicine Teacher Relationship Specialty Start Date End Date Esperanza Ho MD [address] [place] [address] PCP - General Family Medicine 02/01/19 Montana Mendoza III, MD [address] [place] [address] Consulting Physician Rheumatology 02/01/19
--- OUTSIDE RECORDS SUMMARY | 2025-04-23 21:18 | XMS_ITS | Clinical Summary ---
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 TEACHER Respiratory Rate 19 11/01/2017 11:10 AM SURVEY RESEARCH TEACHER Oxygen Saturation 96% 03/13/2018 3:12 PM CDT Inhaled Oxygen Concentration - - Weight 95.7 kg (211 lb) 03/13/2018 3:12 PM CDT Height 168.9 cm (5' 6.5) 03/13/2018 3:12 PM CDT Body Mass Index 33.55 03/13/2018 3:12 PM CDT Plan of Treatment Health Maintenance Due Date Last Done Comments Hepatitis C 1977 DTaP, Tdap and Td Vaccines (1 - Tdap) 1978 Pneumococcal Vaccine: 50+ Years (1 of 1 - PCV) 2009 Zoster Vaccines (1 of 2) 2009 Annual Medicare Wellness Visit 2024 Dexa Scan (General) 2024 COVID-19 Vaccine ( season) 2024 09/13/2021, 12/26/2020, 11/28/2020 Mammogram Screening 12/17/2026 12/17/2024, 07/25/2024, 07/11/2024, Additional history exists Colorectal Cancer Screening Colonoscopy (10 Years) 11/01/2027 11/01/2017 RSV Immunization or 60+ Years (1 - 1-dose 75+ series) 2034 Meningococcal B Vaccine Aged Out No l onger eligible based on patient's age to complete this topic Meningococcal Vaccine Aged Out No eugenio dimitrios eligible based on patient's age to complete this topic RSV Immunizations Under 20 Months Aged Out No longer eligible based on patient's age to complete this topic Procedures Procedure Name Priority Date/Time Associated Diagnosis Comments MG DIAG W ELEANOR LT DIGI Routine 12/17/2024 10:49 AM CDT Breast calcification, left COLONOSCOPY Routine 11/01/2017 12:00 AM SURVEY RESEARCH TEACHER from Last 3 Months or Most Recently Relevant to Health Maintenance Results * MG DIAG W ELEANOR LT DIGI (12/17/2024 10:49 AM CDT) Anatomical Region Laterality Modality Breast Left Mammography 12/17/2024 2:12 PM CDT Impressions 12/17/2024 2:17 PM CDT =====IMPRESSION:===== No mammographic findings suggestive of malignancy ASSESSMENT: ACR BI-RADS 2 - BENIGN FINDING(S) Recommendation: 1: Routine Screening Bilateral Ordered By: RADHA STEELE Interpreted By: Lb Correa MD, 12/17/2024 2:12 PM Narrative 12/17/2024 2:17 PM CDT [facility] [address] [place] [address] EXAMINATION: Digital left diagnostic mammogram with 3-D tomography EXAM DATE/TIME: 12/17/2024 10:36 AM REASON FOR EXAM: 3 month f/u after benign lt breast bx COMPARISON: 07/25/2024, 07/11/2024, 07/03/2024, 01/31/2023 TECHNIQUE: Digital diagnostic mammography of the left breast was performed in addition to 3-D Tomosynthesis technique. This study was read with the assistance of a computer-aided detection system. TISSUE DENSITY: There are scattered areas of fibroglandular density. FINDINGS: Left breast biopsy changes with residual scar and biopsy clip in place superiorly. Scattered benign-appearing calcifications are noted. No suspicious calcifications, masses, architectural distortion or skin thickening. There has been no significant interval change. Radha Steele MD MAMMO Final Result * Colonoscopy (11/01/2017 12:00 AM SURVEY RESEARCH TEACHER) 11/01/2017 11/01/2017 Narrative [facility] TO EPIC CONVERSION - 11/01/2017 12:00 AM SURVEY RESEARCH TEACHER Documented hx of procedure Procedure Note Cheko García MD - 07/09/2018 Documented hx of procedure Cheko Fischer Md, MD GI PROCEDURE ORDERABLES Final Result [facility] TO EPIC CONVERSION from Last 3 Months or Most Recently Relevant to Health Maintenance Insurance MEDICARE Care Teams Paradi Tender Relationship Specialty Start Date End Date Esperanza Ho MD [address] [facility] [address] [place] [address] PCP - General FAMILY PRACTICE 11/24/22 Staci Sanchez MD Nadira Stamping Machine Operator INTERVENTIONAL CARDIOLOGY 02/16/18
[2025-04-24] VITALS (13 sets, daily range): BP systolic 140–153; BP diastolic 69–82; PULSE 67–86; RESP 16–19; TEMP 36.5–36.7; O2SAT 99–100; BMI 34.9
--- NOTE | 2025-04-24 | ECHO_ITS ---
Patient Info Name: Saray Teague Whitten Age: 65 years : 1960 Gender: Female Ht: 66 in Wt: 216 lbs BSA: 2.18 m2 HR: 84 bpm BP: 140 / 70 mmHg Technical Quality: Good Exam Date: 04/24/2025 9:16 AM Patient Status: I Admit Date: 04/23/2025 Exam Type: CA echo doppler w bubble study Complete two-dimensional, color flow and Doppler transthoracic echocardiogram is performed with agitated saline. Staff Referring Physician: Awilda Moreira Customs Entry Writer: Cristal Monroe Attending Provider: Kenisha Ashby DO Contrast/Agitated Saline Contrast/Ag. Saline: Agitated Saline Amount: 20.00 ml Summary 1. Left ventricular chamber dimension is normal. 2. Left ventricular systolic function is normal, estimated at 60-65. 3. The left ventricular diastolic function is grade I diastolic dysfunction. 4. E/e' 7 is not elevated. 5. Left atrial chamber dimension is mildly enlarged. 6. There is moderate aortic valve sclerosis. 7. There is trace aortic valve regurgitation. 8. There is trace mitral valve regurgitation. 9. There is trace tricuspid valve regurgitation. 10. No pulmonary hypertension, estimated pulmonary arterial systolic pressure is 35 mmHg. 11. There is trace pulmonic regurgitation. Left Ventricle E/e' 7 is not elevated. Left ventricular chamber dimension is normal. Left ventricular systolic function is normal, estimated at 60-65. The left ventricular diastolic function is grade I diastolic dysfunction. Right Ventricle Right ventricular chamber dimension is normal. Right ventricular systolic function is normal and with normal TAPSE 1.8 cm. Left Atria Left atrial chamber dimension is mildly enlarged. Right Atria Right atrial chamber dimension is normal. Atrial Septum Intact interatrial septum visualized by 2D, color flow and agitated saline imaging. Agitated saline injection with and without valsalva maneuver opacified right side cardiac chambers without shunt to left side cardiac chambers. Aortic Valve The aortic valve is trileaflet. There is moderate aortic valve sclerosis. There is no aortic valve stenosis. There is trace aortic valve regurgitation. Pulmonic Valve There is trace pulmonic regurgitation. Mitral Valve There is no mitral valve stenosis. There is trace mitral valve regurgitation. Tricuspid Valve There is trace tricuspid valve regurgitation. No pulmonary hypertension, estimated pulmonary arterial systolic pressure is 35 mmHg. Pericardium/Pleural There is no pericardial effusion. Inferior Vena Cava Normal inferior vena cava with >50% collapse upon inspiration consistent with normal right atrial pressure, 5 mmHg. Aorta The aortic root size at the sinus of Valsalva is normal. Left Ventricular Outflow Tract Name Value Normal LVOT 2D LVOT Diameter 2.0 cm LVOT Doppler LVOT Peak Velocity 199 cm/s LVOT Peak Gradient 14 mmHg LVOT Mean Gradient 8 mmHg LVOT VTI 47 cm LVOT VTI/AV VTI Ratio 0.9 LVOT Stroke Volume 155 ml LVOT CO 17.2 l/min LVOT CI 7.9 l/min/m2 Pulmonic Valve Name Value Normal RVOT Doppler RVOT Peak Velocity 75 cm/s RVOT Peak Gradient 2 mmHg PV Doppler PV Peak Velocity 119 cm/s PV Peak Gradient 6 mmHg PV Regurgitation Doppler MO Peak End Diastolic Velocity 116 cm/s Mitral Valve Name Value Normal MV Diastolic Function MV E Peak Velocity 80 cm/s MV A Peak Velocity 96 cm/s MV E/A 0.8 MV Decel Time (PW) 230 ms MV Annular TDI MV E/e' (Septal) 7.8 MV E/e' (Lateral) 7.3 MV E/e' (Average) 7.6 Tricuspid Valve Name Value Normal TV Regurgitation Doppler TR Peak Velocity 273 cm/s TR Peak Gradient 30 mmHg Estimated PAP/RSVP RA Pressure 5 mmHg <=5 PA Systolic Pressure 35 mmHg <36 RV Systolic Pressure 35 mmHg <36 Aortic Valve Name Value Normal AV Doppler AV Peak Velocity 251 cm/s AV Peak Gradient 25 mmHg AV Mean Gradient 14 mmHg AV VTI 55 cm AV Area (Cont Eq VTI) 2.8 cm2 >=3.0 AV Area (Cont Eq Juan) 2.6 cm2 AV DI (Juan) 0.79 AV Regurgitation 2D LVOT Area 3.3 cm2 Ventricles Name Value Normal LV Dimensions 2D/MM IVS Diastolic Thickness (2D) 1.1 cm 0.6-1.0 LVID Diastole (2D) 4.1 cm 3.8-5.2 LVIW Diastolic Thickness (2D) 1.2 cm 0.6-0.9 LVID Systole (2D) 2.6 cm 2.2-3.5 LVOT Diameter 2.0 cm LV Mass (2D Cubed) 163.17 g 67.00-162.00 LV Mass Index (2D Cubed) 75 g/m2 43-95 Relative Wall Thickness (2D) 0.56 <=0.42 LV Fractional Shortening/Ejection Fraction 2D/MM LV Fractional Shortening (2D) 36 % 27-45 LV EF (2D Teichholz) 67 % LV Diastolic Volume (4C MOD) 95 ml LV EF (4C MOD) 63 % LV Diastolic Volume (2C MOD) 72 ml LV EF (2C MOD) 63 % LV Diastolic Volume (BP MOD) 86 ml 46-106 LV Diastolic Volume Index (BP MOD) 40 ml/m2 29-61 LV Systolic Volume (BP MOD) 33 ml 14-42 LV Systolic Volume Index (BP MOD) 15 ml/m2 8-24 LV EF (BP MOD) 62 % 54-74 LV Diastolic Length (4C) 7.5 cm LV Systolic Length (4C) 5.6 cm LV Stroke Volume (4C MOD) 60 ml Atria Name Value Normal LA Dimensions LA Volume (4C A-L) 37 ml LA Volume (BP A-L) 40 ml RA Dimensions RA Systolic Major Hamilton Length (4C) 5.3 cm 2.2-2.8 RA Area (4C) 18.2 cm2 <=18.0 Report Signatures
--- NOTE | 2025-04-24 01:17 | ADMGEN ---
This patient, Saray Whitten, was admitted to Medical Room 246-01. Patient/family oriented to hospital policies and general routines including ID bracelet, bed and alarms, visiting hours, pain management, procedures, bathroom and other care routines, personal items, smoking policy, room service/diet, and visiting hours. Information on how to activate the Rapid Response Team has been discussed. Patient/Family are encouraged to report perceived risks to care and to ask questions if they do not understand what they are told or what they should do.
--- NOTE | 2025-04-24 07:29 | P.HP_ITS ---
H&P: HPI History of Present Illness Date/Time: 04/24/25 07:29 Chief Complaint: - left arm /leg paresthesia Narrative: Patient is a 65 yo female with history of ankylosing spondylitis, chronic pain syndrome, fibromyalgia who presented to the ER with complaints of left arm and leg tingling. LKW 04/22 10PM when she went to sleep. Patient states she awoke around 6 the morning and was experiencing numbness and tingling in her left forearm, left lower leg and around her entire mouth. Denied associated facial droop, speech difficulty, weakness, dizziness, headache or visual abnormality. Patient states she has had similar symptoms in the past, but has never been evaluated for TIA or CVA. Patient does admit to significant stressors in her life. She also has a history of high blood pressure, but is currently not medication. Denies any recent illness, fever, chills, which has pain, nausea, vomiting, diarrhea, dysuria. Upon my evaluation, patient feels back to baseline. In ED, CT head with no acute hemorrhage, tiny lacunar infarction of indeterminate age versus Virchow-Seymour space in the medial left temporal lobe. If of concern, consider a brain MRI for further assessment. CTA head and neck with no significant vascular abnormality. CXR no acute process Labs unremarkable. Patient was admitted for further stroke workup. Review of Systems Review of Systems: All systems reviewed & are unremarkable except as noted in HPI and below PMFSH Past Medical History Medical History Ankylosing spondylitis Positive OLEG (antinuclear antibody) Polyp of vocal cord or larynx Vocal cord dysfunction Chronic pain syndrome Primary fibromyalgia Spinal stenosis at L4-L5 level Surgical History Surgical History History of vocal cord polypectomy S/P lumbar fusion Family History Family History Mother Heart failure Other Parents Social History Social History Social History: Years smoked: 3 Smoking status: Never smoker Tobacco type: cigarettes Second hand tobacco smoke exposure: No Smoking end date: 09/05/69 Alcohol intake: never Alcohol use details: Occasionally Substance use: never Substance use type: does not use Do You Feel Safe in your Home?: Yes Lack of Transportation: No Lack of Food: Never True Current Housing: I Have Housing Concerned About Future Housing: No Difficulty Paying Gas/Electric Bills: No Difficulty Paying for Meds: No Currently Unemployed: No Education: High School Diploma/GED Difficulty w/ Childcare or Family Care: No Living arrangements: with family Occupation/Education: occupation Gender identity (if verbalized by the patient): Female Sexual Orientation (if Verbalized by the Patient): Straight or Heterosexual Spiritual care concerns: No Meds Home Medications and Allergies Home Medications ?Medication ?Instructions ?Recorded ?Confirmed ?Type multivitamin (Daily Multi-Vitamin 1 tablet PO DAILY 04/24/25 History tablet) Allergies Allergy/AdvReac Type Severity Reaction Status Date / Time No Known Allergies Allergy Verified 04/23/25 16:24 Vital Signs Vital Signs - 24 hr 04/23/25 16:20 04/23/25 17:13 04/23/25 19:16 Temperature 98.2 F Pulse Rate 98 98 94 Respiratory Rate 16 16 Blood Pressure 187/91 H 164/94 H Pulse Oximetry 98 100 Oxygen Delivery 04/23/25 19:25 04/23/25 19:47 04/23/25 20:20 Temperature Pulse Rate 89 93 Respiratory Rate 17 16 Blood Pressure 164/94 H 157/87 H Pulse Oximetry 100 100 99 Oxygen Delivery 04/23/25 20:32 04/23/25 21:48 04/23/25 22:32 Temperature Pulse Rate 84 75 81 Respiratory Rate 20 18 18 Blood Pressure 159/89 H 149/87 H 137/63 Pulse Oximetry 98 98 98 Oxygen Delivery 04/23/25 22:47 04/23/25 23:05 04/23/25 23:34 Temperature Pulse Rate 81 76 80 Respiratory Rate 18 18 22 H Blood Pressure Pulse Oximetry 98 100 98 Oxygen Delivery 04/23/25 23:45 04/24/25 00:05 04/24/25 00:20 Temperature Pulse Rate 74 69 Respiratory Rate 19 19 Blood Pressure Pulse Oximetry 97 99 99 Oxygen Delivery 04/24/25 00:30 04/24/25 00:45 04/24/25 01:03 Temperature Pulse Rate 69 78 Respiratory Rate 19 19 Blood Pressure Pulse Oximetry 99 100 Oxygen Delivery 04/24/25 01:18 04/24/25 01:31 04/24/25 04:00 Temperature 98.1 F Pulse Rate 76 71 Respiratory Rate 18 Blood Pressure 153/82 H Pulse Oximetry 100 Oxygen Delivery Room Air 04/24/25 05:06 Temperature 97.7 F Pulse Rate 67 Respiratory Rate 16 Blood Pressure 140/70 Pulse Oximetry 100 Oxygen Delivery Exam Narrative: General: NAD Eyes: EOMI ENT: neck supple Cardiovascular: Regular rate and rhythm Respiratory: Clear to auscultation, respirations even and unlabored on RA Gastrointestinal: Soft, non tender Genitourinary: no suprapubic tenderness Musculoskeletal: No edema Skin: warm, dry Neuro: Alert. Alert and oriented x4. Cranial nerves II-XII intact. Face symmetric. Speech clear. Strength 5/5 in BUEs/BLEs. Sensation to light touch intact face, BUE/BLEs. No dysmetria BUE/BLEs. Psych: Mood appropriate H&P: Results Labs Labs: Short CBC 04/23/25 Range/Units 17:01 WBC 6.7 (4.5-10.0) K/mm3 Hgb 13.0 (12.0-15.0) g/dL Hct 42.0 (37.0-47.0) % Plt Count 203 (150-375) k/mm3 BMP 04/23/25 17:01 Sodium 139 Potassium 3.9 Chloride 105 Carbon Dioxide 25 BUN 18 H Creatinine 0.83 Glucose 90 Calcium 9.5 Cardiac Enzymes 04/23/25 Range/Units 17:01 Troponin I < 0.012 (0.000-0.034) ng/mL Liver Function 04/23/25 Range/Units 17:01 Total Bilirubin 0.4 (0.2-1.3) mg/dL AST 33 (14-36) U/L ALT 24 (6-35) U/L Alkaline Phosphatase 81 (38-126) U/L Albumin 4.3 (3.5-5.1) g/dL Assessment and Plan Assessment and plan (1) Paresthesia of left arm and leg: Code(s): R20.2 - Paresthesia of skin Status: Acute Assessment and Plan: - presented with left arm/leg paresthesias lasting around 12 hours. LKW 818 PM. - CT head - No acute intracranial hemorrhage. 2. Tiny lacunar infarction of indeterminate age versus Virchow-Seymour space in the medial left temporal lobe. If of concern, consider a brain MRI for further assessment. - CTA head and neck no acute process - echo with EF 60%, G1DD - admit NIHSS 0 per ED note review - continue neuro checks - monitor on telemetry - continue ASA - MRI brain, FLP, HgbA1c ordered - neurology consulted, appreciate recs (2) Hypertension: Code(s): I10 - Essential (primary) hypertension Status: Acute Assessment and Plan: - BP 140/70 - not on home medication - encouraged to keep BP log at home and folow-up with PCP (3) Chronic pain syndrome: Code(s): G89.4 - Chronic pain syndrome Status: Acute Assessment and Plan: - not on home medication Plan DVT prophylaxis: Lovenox Code status: full code Disposition: home today or tomorrow pending MRI results Quality VTE Prophylaxis VTE prophylaxis: pharmacologic ordered
[2025-04-24] MEDS: ASPIRIN 81 MG CHEWABLE TABLET PO (08:36)
[2025-04-24 09:02] LABS: Hemoglobin A1C 5.7 % (<5.7)
[2025-04-24 09:16] LABS: Cholesterol 226 mg/dL (0-200); HDL Direct 53 mg/dL; Triglycerides 92 mg/dL (<150)
[2025-04-24 09:44] LABS: Thyroid Stimulating Hormone Reflex 2.100 uIU/mL (0.465-4.68)
--- NOTE | 2025-04-24 12:09 | WPDNEURCNPN ---
Assessment and Plan Assessment and plan (1) TIA (transient ischemic attack): Code(s): G45.9 - Transient cerebral ischemic attack, unspecified Status: Acute Plan 1 TIA 2 continue aspirin 81mg daily in the meantime obtain the MRI of the brain, echocardiogram has been done and not very significant, CTA is negative, MRI of the brain is warranted. Consult date: 04/24/25 HPI: Saray Whitten is a 65 year old female admitted to the hospital through the emergency room for the complaints of left upper extremity and left lower extremity tingling along with deep asleep sensation and with history that she was perfectly normal and night before she gave no history of weakness of her left upper and left lower extremity, no history of headache or any visual changes. She has been taking on a multivitamin 1 tablet daily, she is not allergic to any medication, she has ongoing history of positive antinuclear antibody, she has history of fibromyalgia, with ankylosing spondylitis, and vocal cord dysfunction as well for which she has undergone vocal cord polypectomy. She has history of 3 years smoked and not drinking alcohol at all. On initial exam in the emergency room she was found to have no focal deficit, her vital signs were normal except blood pressure 187/91, CTA of the head and neck in the ER was, normal and head CT scan raised the possibility of tiny lacunar infarct. At this stage MRI is awaited. Her echocardiogram has been done which reveals trace regurgitation and mildly enlarged left atrial chamber. Review of Systems Review of Systems: All systems reviewed & are unremarkable except as noted in HPI and below PMFSH Past Medical History Medical History Ankylosing spondylitis Positive OLEG (antinuclear antibody) Polyp of vocal cord or larynx Vocal cord dysfunction Chronic pain syndrome Primary fibromyalgia Spinal stenosis at L4-L5 level Surgical History Surgical History History of vocal cord polypectomy S/P lumbar fusion Family History Family History Mother Heart failure Other Parents Social History Social History Social History: Years smoked: 3 Smoking status: Never smoker Tobacco type: cigarettes Second hand tobacco smoke exposure: No Smoking end date: 09/05/69 Alcohol intake: never Alcohol use details: Occasionally Substance use: never Substance use type: does not use Do You Feel Safe in your Home?: Yes Lack of Transportation: No Lack of Food: Never True Current Housing: I Have Housing Concerned About Future Housing: No Difficulty Paying Gas/Electric Bills: No Difficulty Paying for Meds: No Currently Unemployed: No Education: High School Diploma/GED Difficulty w/ Childcare or Family Care: No Living arrangements: with family Occupation/Education: occupation Gender identity (if verbalized by the patient): Female Sexual Orientation (if Verbalized by the Patient): Straight or Heterosexual Spiritual care concerns: No Meds Home Medications and Allergies Home Medications ?Medication ?Instructions ?Recorded ?Confirmed ?Type multivitamin (Daily Multi-Vitamin 1 tablet PO DAILY 04/24/25 04/24/25 History tablet) Allergies Allergy/AdvReac Type Severity Reaction Status Date / Time No Known Allergies Allergy Verified 04/23/25 16:24 Vital Signs Vital Signs - 24 hr 04/23/25 16:20 04/23/25 17:13 04/23/25 19:16 Temperature 36.8 C Pulse Rate 98 98 94 Respiratory Rate 16 16 Blood Pressure 187/91 H 164/94 H Pulse Oximetry 98 100 Oxygen Delivery 04/23/25 19:25 04/23/25 19:47 04/23/25 20:20 Temperature Pulse Rate 89 93 Respiratory Rate 17 16 Blood Pressure 164/94 H 157/87 H Pulse Oximetry 100 100 99 Oxygen Delivery 04/23/25 20:32 04/23/25 21:48 04/23/25 22:32 Temperature Pulse Rate 84 75 81 Respiratory Rate 20 18 18 Blood Pressure 159/89 H 149/87 H 137/63 Pulse Oximetry 98 98 98 Oxygen Delivery 04/23/25 22:47 04/23/25 23:05 04/23/25 23:34 Temperature Pulse Rate 81 76 80 Respiratory Rate 18 18 22 H Blood Pressure Pulse Oximetry 98 100 98 Oxygen Delivery 04/23/25 23:45 04/24/25 00:05 04/24/25 00:20 Temperature Pulse Rate 74 69 Respiratory Rate 19 19 Blood Pressure Pulse Oximetry 97 99 99 Oxygen Delivery 04/24/25 00:30 04/24/25 00:45 04/24/25 01:03 Temperature Pulse Rate 69 78 Respiratory Rate 19 19 Blood Pressure Pulse Oximetry 99 100 Oxygen Delivery 04/24/25 01:18 04/24/25 01:31 04/24/25 04:00 Temperature 36.7 C Pulse Rate 76 71 Respiratory Rate 18 Blood Pressure 153/82 H Pulse Oximetry 100 Oxygen Delivery Room Air 04/24/25 05:06 04/24/25 08:03 04/24/25 08:36 Temperature 36.5 C Pulse Rate 67 75 Respiratory Rate 16 16 Blood Pressure 140/70 Pulse Oximetry 100 100 Oxygen Delivery Room Air Exam Narrative: Revealed her to be awake alert cooperative in no obvious acute distress, head normocephalic with no cranial bruit, ear nose throat examination normal, neck supple with no cervical bruit no thyromegaly no lymphadenopathy, heart regular with no murmur, lungs clear to auscultation without rhonchi or crepitation, abdomen soft nontender with normal bowel sounds, neurologically she is awake alert oriented x3, speech not dysphasic not dysarthric not dysphonic, pupils round regular feels the vision full extraocular movements full with no nystagmus, facial sensation intact face symmetric tongue midline motor examination revealed her to have normal strength and tone in upper and lower extremities proximally and distally with no evidence of reflexes asymmetric. No evidence of ataxia or dysmetria on [id number]-to-finger or heel to knee to wu. Results Labs 04/23/25 17:01 04/23/25 17:01 Labs: Short CBC 04/23/25 Range/Units 17:01 WBC 6.7 (4.5-10.0) K/mm3 Hgb 13.0 (12.0-15.0) g/dL Hct 42.0 (37.0-47.0) % Plt Count 203 (150-375) k/mm3 BMP 04/23/25 17:01 Sodium 139 Potassium 3.9 Chloride 105 Carbon Dioxide 25 BUN 18 H Creatinine 0.83 Glucose 90 Calcium 9.5 Cardiac Enzymes 04/23/25 Range/Units 17:01 Troponin I < 0.012 (0.000-0.034) ng/mL Liver Function 04/23/25 Range/Units 17:01 Total Bilirubin 0.4 (0.2-1.3) mg/dL AST 33 (14-36) U/L ALT 24 (6-35) U/L Alkaline Phosphatase 81 (38-126) U/L Albumin 4.3 (3.5-5.1) g/dL
--- NOTE | 2025-04-24 16:21 | PM.DS ---
DS: Admitting Diagnosis Discharge Date 04/24/25 Admitting Diagnosis - left arm/leg paresthesias - elevated blood pressure DS: Discharge Diagnosis Discharge Diagnosis (1) Paresthesia of left arm and leg: Code(s): R20.2 - Paresthesia of skin Status: Acute (2) Hypertension: Code(s): I10 - Essential (primary) hypertension Status: Acute (3) Chronic pain syndrome: Code(s): G89.4 - Chronic pain syndrome Status: Acute DS: Summary Hospital Course Reason for hospitalization: - left arm and leg paresthesia Hospital Course: Patient is a 65 yo female with history of ankylosing spondylitis, chronic pain syndrome, fibromyalgia who presented to the ER with complaints of left arm and leg tingling. LKW 04/22 10PM when she went to sleep. In ED, CT head with no acute hemorrhage, tiny lacunar infarction of indeterminate age versus Virchow-Seymour space in the medial left temporal lobe. CTA head and neck with no significant vascular abnormality. CXR no acute process. Labs unremarkable. Patient was admitted for further stroke workup. While admitted, patient's symptoms resolved. Echo with EF 60%, G1DD, moderate aortic sclerosis. MRI brain showed mild scattered periventricular predominant nonspecific white matter T2 hyperintensity consistent with chronic small vessel ischemic disease. No acute intracranial process. Patient was evaluated by neurology who recommended to continue an aspirin. Noted patient's mildly elevated cholesterol. Recommended lifestyle modifications and follow-up with PCP as patient is hesitant to start medications. Follow-up with neurology as outpatient. Encouraged to follow-up with her oven heater for diastolic dysfunction and valvular abnormalities. While admitted, patient's BP was persistently high and has been high in the past per chart review. Patient agreeable to start amlodipine 5mg and encouraged to keep BP log. Follow-up with PCP as scheduled this Tuesday. Patient discharged home in stable condition. Status at Discharge Functional status at discharge: independent ambulation Overall status at discharge: patient is back to baseline Time Spent with Patient Time attestation: Total time spent providing and/or coordinating discharge services: Time spent: Greater than 30 minutes Exam Narrative: General: NAD Eyes: EOMI ENT: neck supple Cardiovascular: Regular rate and rhythm Respiratory: Clear to auscultation, respirations even and unlabored on RA Gastrointestinal: Soft, non tender Genitourinary: no suprapubic tenderness Musculoskeletal: No edema Skin: warm, dry Neuro: Alert. Psych: Mood appropriate DS: Data Data Completed and Pending Completed studies during hospitalization: - CT head - CTA head and neck - MRI brain - echocardiogram Labs on day of discharge: Labs from last 24 hours 04/24/25 04/23/25 04/23/25 07:59 17:01 16:51 WBC 6.7 RBC 4.87 Hgb 13.0 Hct 42.0 MCV 86.2 MCH 26.7 MCHC 31.0 L RDW 14.4 Plt Count 203 MPV 9.9 Immature Gran % (Auto) 0.3 Neut % (Auto) 44.4 L Lymph % (Auto) 41.9 Summers % (Auto) 10.5 H Eos % (Auto) 2.6 Baso % (Auto) 0.3 Lymph # (Auto) 2.79 Summers # (Auto) 0.7 H Eos # (Auto) 0.2 Baso # (Auto) 0.0 Abs Immat Gran (auto) 0.02 Absolute Neuts (auto) 3.0 Absolute Nucleated RBC 0.000 Nucleated RBC % 0.0 PT 13.2 INR 1.0 APTT 26.7 Sodium 139 Potassium 3.9 Chloride 105 Carbon Dioxide 25 Anion Gap 9 BUN 18 H Creatinine 0.83 Estim Creat Clear Calc 70 Estimated GFR > 60 Glucose 90 POC Capillary Glucose 103 Hemoglobin A1c 5.7 Calcium 9.5 Total Bilirubin 0.4 AST 33 ALT 24 Alkaline Phosphatase 81 Troponin I < 0.012 Total Protein 8.5 H Albumin 4.3 Triglycerides 92 Cholesterol 226 H LDL Cholesterol Direct 109 HDL Direct 53 TSH (Reflex) 2.100 Discharge Plan Discharge Attending physician on discharge: Ray Phoenix Consulting providers: Chivo Gonzalez; Yessenia Moreno Discharging Clinician: Yessenia Moreno Anticipated Discharge Date/Time: 04/24/25 16:17 Patient Disposition: Home Activity: as tolerated Diet: as tolerated and heart healthy Discharge Instructions: Take all medications as prescribed. You have been started on amlodipine for elevated blood pressure. Check your blood pressure daily and keep a log to bring to your follow-up appointment. You have been started on aspirin 81 mg for concern for TIA. Follow-up with your oven heater regarding diastolic dysfunction and mild valvular disease on your echocardiogram. Your cholesterol is mildly elevated. Work on lifestyle modifications and discuss continued management with your primary care doctor. Follow-up with your primary care provider in one week. Return to the emergency department if you develop chest pain, shortness of breath, speech changes, facial droop, severe headache, persistent fever >100.4, confusion, loss of consciousness. Patient Instructions: Antibiotic Form Patient Language: Maori Stand Alone Forms: General Discharge Information Follow-up/Referrals: Chivo Gonzalez MD [Physician, Neurology] - Call for Appointment Referral Note: 1 month Esperanza Ho MD [Primary Care Provider, Family Practice] Referral Note: keep scheduled follow-up appointment Discharge Medications: New aspirin [Children's Aspirin] 81 mg Tablet,Chewable 81 mg PO DAILY@0800 Qty: 30 0RF amlodipine 5 mg tablet 5 mg PO DAILY Qty: 30 0RF Continued multivitamin [Daily Multi-Vitamin] Tablet 1 tablet PO DAILY Date of admission: 04/24/25 15:25 Primary Care Provider: Esperanza Ho Admitting Provider: Kenisha Ashby Attending physician on admission: Kenisha Ashby Condition: Stable
== END 2025-04-24 17:40 | disposition home or self-care (01) | DRG 69 ==
LOC: ANHED 21:30 → ANH3MEDSUR 23:30 → ANH2MED 04-24 00:42
PROVIDERS: Emergency Medicine; Admitting Provider Internal Medicine; Emergency Provider Physician Assistant; PCP Family Medicine; Visit Provider Physician Assistant
DX: G45.9 Transient cerebral ischemic attack, unspecified (principal); R20.2 Paresthesia of skin; I10 Essential (primary) hypertension; M45.9 Ankylosing spondylitis of unspecified sites in spine; M48.061 Spinal stenosis, lumbar region without neurogenic claudication; M79.7 Fibromyalgia; G89.4 Chronic pain syndrome; Z98.1 Arthrodesis status
CPT/HCPCS: 36415; 70450; 70496; 70498; 70553; 71045; 80053; 80061; 82948; 83036; 84443; 84484; 85025; 85610; 85730; 93005; 93306; 96374; 96375; 99285; A9270; A9577; G0378; Q9967